=== PATIENT | male | born 1940 | race Caucasian/White ===

== ENCOUNTER → 2016-08-14 | Day surgery (SDC) | payer MEDICARE ==
[2016-08-09 11:25] VITALS: BMI 28.0
[~2016-08-14] MED LIST: LACTATED RINGERS 1,000 ML IV SCH; LIDOCAINE 1% 20 ML VIAL (10MG/ML) FOR IV START INTRADERMA ONE; LIDOCAINE 1% INJ 10MG/ML (20 ML MDV) ONE; PROPOFOL 10 MG/ML 20 ML VIAL IV ONE
--- NOTE | 2016-08-14 13:18 | P.GSHP ---
History of Present Illness H&P Date: 08/14/16 Chief Complaint: GI bleed This is a 68-year-old male for from Dr. Adams Woodward. Patient is today for EGD and colonoscopy. He's had issues with GI bleed. 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, right ankle pressure sore Past Surgical History: Back Surgery, Coronary Bypass/CABG, Joint Replacement, Orthopedic Surgery Additional Past Surgical History / Comment(s): CABG 1988 X2, olga hip replacement , miguel fundoplicaton, olga carpal tunnel, rt shoulder rotator cuff, HX OF EPIDURALS FOR PAIN Past Anesthesia/Blood Transfusion Reactions: No Reported Reaction Past Psychological History: Depression Additional Psychological History / Comment(s): STATES OCCASIONAL Smoking Status: Current every day smoker Past Alcohol Use History: None Reported Additional Past Alcohol Use History / Comment(s): SMOKES <1PPD FROM TEENS Past Drug Use History: None Reported - Past Family History Daughter(s) Family Medical History: Cancer Father History Unknown: Yes Mother Family Medical History: No Reported History Medications and Allergies Home Medications Medication Instructions Recorded Confirmed Type Metoprolol Tartrate [Lopressor] 12.5 mg PO BID 08/06/13 08/14/16 History Rivaroxaban [Xarelto] 20 mg PO DAILY 08/06/13 08/14/16 History Furosemide 40 mg PO BID 08/09/13 08/14/16 History Gabapentin 600 mg PO TID 06/24/14 08/14/16 History Fluticasone/Salmeterol [Advair 1 device PO BID 08/18/14 08/14/16 History 250-50 Diskus] Tiotropium 18 Mcg/Puff [Spiriva] 1 device PO DAILY 08/18/14 08/14/16 History Albuterol Nebulized [Ventolin 2.5 mg INHALATION BID 08/09/16 08/14/16 History Nebulized] Ipratropium Nebulized [Atrovent 0.5 mg INHALATION BID 08/09/16 08/14/16 History Nebulized] oxyCODONE HCL/ACETAMINOPHEN 1 tab PO TID PRN 08/09/16 08/14/16 History [Percocet 10-325 mg] Allergies Allergy/AdvReac Type Severity Reaction Status Date / Time No Known Allergies Allergy Verified 08/14/16 11:21 Surgical - Exam Vital Signs Pulse BP Pulse Ox 80 94/58 98 08/14/16 11:26 08/14/16 11:26 08/14/16 11:26 - General well developed, no distress - Eyes PERRL - ENT normal pinna - Neck no masses - Respiratory normal expansion - Cardiovascular Rhythm: regular - Abdomen Abdomen: soft, non tender Assessment and Plan Plan: GI bleed. We'll perform EGD and colonoscopy.
--- NOTE | 2016-08-14 13:46 | P.OP ---
Date of Procedure: 08/14/16 Preoperative Diagnosis: GI bleed Postoperative Diagnosis: Antral gastritis Cecal polyp Right colon polyp Moderate to severe diverticulosis of sigmoid colon Procedure(s) Performed: EGD Colonoscopy Implants: Anesthesia: MAC Surgeon: Abel Ocampo Pathology: other (Antrum, right colon polyp, cecal polyp) Condition: stable Disposition: PACU Indications for Procedure: Operative Findings: Description of Procedure: The patient's placed on the endoscopy table in the lateral position. She received IV sedation. Digital rectal exam was performed which revealed no abnormalities. The prostate was symmetric without nodules. The flexible colonoscope was then placed patient anus passed throughout the entire colon. The ileocecal valve was visualized. The cecum was examined and there was a polyp seen this removed with snare. Next another polyp was seen in the right colon was removed the forcep. Scope was withdrawn and the remainder the ascending colon and transverse colon appeared normal. In the descending colon there was moderate diverticular changes. In the sigmoid: There is severe diverticular changes. Scope was then brought back the rectum and this appeared normal. Scope was withdrawn for patient. Next the gastroscope was placed oropharynx and passed into the esophagus and into the stomach. Scope was then placed through the pylorus. The first and second portion of the duodenum appeared normal. Scope was then brought back the antrum this appeared mildly inflamed. A biopsies performed. The scope was retroflexed and remainder of the stomach appeared normal. The patient appears hiatal hernia The fundoplication wrap appeared to be in appropriate position. The GE junction was at 40 cm. The distal esophagus appeared normal. The proximal esophagus appeared normal. The scope was withdrawn for patient.
[2016-08-14 13:51] VITALS: RESP 16
[2016-08-14 14:16] VITALS: BP 118/73; PULSE 77
== END ==
LOC: ORWHC2ENDO 10:20
PROVIDERS: ATTEND Surgery
DX: K29.50 Unspecified chronic gastritis without bleeding (principal); D12.0 Benign neoplasm of cecum; K63.5 Polyp of colon; K57.30 Diverticulosis of large intestine without perforation or abscess without bleeding; Z87.19 Personal history of other diseases of the digestive system; I48.91 Unspecified atrial fibrillation; J44.9 Chronic obstructive pulmonary disease, unspecified; K21.9 Gastro-esophageal reflux disease without esophagitis; E78.5 Hyperlipidemia, unspecified; I25.2 Old myocardial infarction; Z86.14 Personal history of Methicillin resistant Staphylococcus aureus infection; Z95.1 Presence of aortocoronary bypass graft; F32.9 Major depressive disorder, single episode, unspecified; F17.200 Nicotine dependence, unspecified, uncomplicated; Z79.01 Long term (current) use of anticoagulants; Z79.891 Long term (current) use of opiate analgesic; Z79.51 Long term (current) use of inhaled steroids; Z79.899 Other long term (current) drug therapy
CPT/HCPCS: 88305; 88342; 45380; 45385; 43239; J2001; J2704

== ENCOUNTER → 2017-01-14 | Outpatient (CLI) | payer MEDICARE ==
[2017-01-14 16:06] LABS: Basophils % (A) 0 %; CH 31.3; CHCM 32.1; Eosinophils # (A) 0.1 k/uL (0-0.7); Eosinophils % (A) 2 %; HCT 44.2 % (39.0-53.0); HDW 2.62; HGB 13.9 gm/dL (13.0-17.5); Luc # (Auto) 0.22; Luc % (Auto) 3; Lymphocytes # (A) 2.3 k/uL (1.0-4.8); Lymphocytes % (A) 32 %; MCH 31.1 pg (25.0-35.0); MCHC 31.6 g/dL (31.0-37.0); MCV 98.4 fL (80.0-100.0); Mean Platelet Volume 6.8; Monocytes # (A) 0.7 k/uL (0-1.0); Monocytes % (A) 9 %; Neutrophils # (A) 3.8 k/uL (1.3-7.7); Neutrophils % (A) 53 %; RBC 4.49 m/uL (4.30-5.90); RDW 14.4 % (11.5-15.5); WBC 7.2 k/uL (3.8-10.6); WBC (Perox) 7.17
[2017-01-14 16:10] LABS: Anion Gap 9 mmol/L; Blood Urea Nitrogen 15 mg/dL (9-20); Calcium 9.2 mg/dL (8.4-10.2); Carbon Dioxide 28 mmol/L (22-30); Chloride 106 mmol/L (98-107); Glucose 94 mg/dL (74-99); Non-African American GFR(MDRD) >60 (>60 ml/min/1.73 sqM); Sodium 143 mmol/L (137-145)
--- NOTE | 2017-01-22 12:32 | P.ARTDOP ---
Arterial Doppler LOWER EXTREMITY ARTERIAL DOPPLER: DATE OF SERVICE: 01/14/2017 Reason for study: Left calf ulcer with fatty layer exposed. Doppler waveforms: Multiphasic bilaterally throughout.. Pulse volume recording: Blunted right digital configuration Pressure gradients: only at the right foot Ankle-brachial indices: greater than 1 bilaterally Toe pressures: no accurate recording obtained on the right, 59 on the left Impression: proximally both studies are normal. There is decreased pressure and waveforms on the right toes which do not correlate with symptoms. Perfusion probably adequate for healing on the left calf. Findings on the right foot are either severe vasospastic or less likely occlusive disease. Clinical correlation recommended.
== END | disposition home or self-care (01) ==
LOC: RADUSWWP 14:23
PROVIDERS: ATTEND Family Medicine
DX: L97.221 Non-pressure chronic ulcer of left calf limited to breakdown of skin (principal)
CPT/HCPCS: 36415; 80048; 85025; 93922

== ENCOUNTER 2017-09-16 09:57 | Day surgery (SDC) | payer MEDICARE ==
[2017-09-15 08:53] VITALS: BMI 29.2
[~2017-09-16 09:57] MED LIST changes: -LIDOCAINE 1% 20 ML VIAL (10MG/ML) FOR IV START INTRADERMA ONE; -LIDOCAINE 1% INJ 10MG/ML (20 ML MDV) ONE; -PROPOFOL 10 MG/ML 20 ML VIAL IV ONE
[2017-09-16 10:35] VITALS: RESP 16; TEMP 98.2
[2017-09-16] MEDS ORDERED: LIDOCAINE 1% 20 ML VIAL (10MG/ML) FOR IV START INTRADERMA ONE (10:35)
[2017-09-16] MEDS ORDERED: PROPOFOL 10 MG/ML 20 ML VIAL IV ONE (11:26)
--- NOTE | 2017-09-16 11:39 | P.GSHP ---
History of Present Illness H&P Date: 09/16/17 Chief Complaint: GI bleed This a 77-year-old male presents today for colonoscopy. He's had issues with rectal bleeding. Past Medical History Past Medical History: Atrial Fibrillation, COPD, GERD/Reflux, Hypertension, Myocardial Infarction ([place]), Thyroid Disorder Additional Past Medical History / Comment(s): GI BLEED, HX OF COLON POLYPS. 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, right ankle pressure sore Past Surgical History: Back Surgery, Coronary Bypass/CABG, Joint Replacement, Orthopedic Surgery Additional Past Surgical History / Comment(s): CABG 1987 X2, olga hip replacement , miguel fundoplicaton, olga carpal tunnel, rt shoulder rotator cuff, HX OF EPIDURALS FOR PAIN Past Anesthesia/Blood Transfusion Reactions: No Reported Reaction Smoking Status: Current every day smoker - Past Family History Daughter(s) Family Medical History: Cancer Father History Unknown: Yes Mother Family Medical History: No Reported History Medications and Allergies Home Medications Medication Instructions Recorded Confirmed Type Metoprolol Tartrate [Lopressor] 12.5 mg PO BID 08/06/13 09/16/17 History Rivaroxaban [Xarelto] 20 mg PO DAILY 08/06/13 09/16/17 History Furosemide 40 mg PO BID 08/09/13 09/16/17 History Gabapentin 600 mg PO TID 06/24/14 09/16/17 History Fluticasone/Salmeterol [Advair 1 device PO BID 08/18/14 09/16/17 History 250-50 Diskus] Tiotropium 18 Mcg/Puff [Spiriva] 1 device PO DAILY 08/18/14 09/16/17 History Albuterol Nebulized [Ventolin 2.5 mg INHALATION TID 08/09/16 09/16/17 History Nebulized] Ipratropium Nebulized [Atrovent 0.5 mg INHALATION TID 08/09/16 09/16/17 History Nebulized] oxyCODONE HCL/ACETAMINOPHEN 1 tab PO TID PRN 08/09/16 09/16/17 History [Percocet 10-325 mg] Allergies Allergy/AdvReac Type Severity Reaction Status Date / Time No Known Allergies Allergy Verified 09/16/17 10:25 Surgical - Exam Vital Signs Temp Pulse Resp BP Pulse Ox 98.2 F 91 16 97/56 90 L 09/16/17 10:34 09/16/17 10:34 09/16/17 10:34 09/16/17 10:34 09/16/17 10:34 - General well developed, no distress - Eyes PERRL - ENT normal pinna - Neck no masses - Respiratory normal expansion - Cardiovascular Rhythm: regular - Abdomen Abdomen: soft, non tender Assessment and Plan Assessment: GI bleed. We'll perform colonoscopy.
--- NOTE | 2017-09-16 11:56 | P.OP ---
Date of Procedure: 09/16/17 Preoperative Diagnosis: GI bleed Postoperative Diagnosis: Diverticulosis Right colon polyp Procedure(s) Performed: Colonoscopy Anesthesia: MAC Surgeon: Abel Ocampo Pathology: other (Right colon polyp) Condition: stable Disposition: PACU Description of Procedure: The patient's placed on the endoscopy table lateral position. He received IV sedation. Digital rectal exam was performed which revealed a few external hemorrhoids. The flexible colonoscope was then placed patient anus and passed throughout the entire colon. The ileocecal valve was visually's. The cecum appeared normal. In the right colon there was a polyp seen this removed with the snare. Scope was withdrawn remainder the ascending colon and transverse colon appeared normal. In the descending; there is mild diverticular changes. There is known to GI bleed. The scope was brought back the rectum and this appeared normal. Scope was withdrawn for patient.
[2017-09-16 12:29] VITALS: BP 126/72; PULSE 88
== END 2017-09-16 12:47 | disposition home or self-care (01) ==
LOC: ORWHC2ENDO 09:57
PROVIDERS: ATTEND Surgery
DX: D12.2 Benign neoplasm of ascending colon (principal); K57.30 Diverticulosis of large intestine without perforation or abscess without bleeding; K62.5 Hemorrhage of anus and rectum; K21.9 Gastro-esophageal reflux disease without esophagitis; I48.91 Unspecified atrial fibrillation; I25.2 Old myocardial infarction; J44.9 Chronic obstructive pulmonary disease, unspecified; I25.10 Atherosclerotic heart disease of native coronary artery without angina pectoris; I10 Essential (primary) hypertension; Z95.1 Presence of aortocoronary bypass graft; Z96.643 Presence of artificial hip joint, bilateral; Z86.010 Personal history of colon polyps; Z86.14 Personal history of Methicillin resistant Staphylococcus aureus infection; Z87.01 Personal history of pneumonia (recurrent); Z79.51 Long term (current) use of inhaled steroids; Z79.01 Long term (current) use of anticoagulants; Z79.899 Other long term (current) drug therapy; Z99.81 Dependence on supplemental oxygen
CPT/HCPCS: 88305; 45385; J2704

== ENCOUNTER → 2017-10-03 | Outpatient (CLI) | payer MEDICARE ==
[2017-10-03 12:19] LABS: HCT 40.9 % (39.0-53.0); HGB 13.3 gm/dL (13.0-17.5); MCH 31.1 pg (25.0-35.0); MCHC 32.4 g/dL (31.0-37.0); MCV 95.8 fL (80.0-100.0); Mean Platelet Volume 7.2; Platelet Count 184 k/uL (150-450); RBC 4.27 m/uL (4.30-5.90); RDW 14.3 % (11.5-15.5); WBC 7.7 k/uL (3.8-10.6)
[2017-10-03 12:29] LABS: ALT 33 U/L (21-72); AST 37 U/L (17-59); Albumin 3.7 g/dL (3.5-5.0); Alkaline Phosphatase 72 U/L (38-126); Anion Gap 6 mmol/L; Blood Urea Nitrogen 17 mg/dL (9-20); Calcium 9.2 mg/dL (8.4-10.2); Carbon Dioxide 34 mmol/L (22-30); Chloride 105 mmol/L (98-107); Glucose 106 mg/dL (74-99); Potassium 4.8 mmol/L (3.5-5.1); Sodium 145 mmol/L (137-145); Total Bilirubin 0.5 mg/dL (0.2-1.3); Total Protein 6.3 g/dL (6.3-8.2)
== END | disposition home or self-care (01) ==
LOC: LABWHC1 11:45
PROVIDERS: ATTEND Internal Medicine Cardiovascular Disease
DX: I25.10 Atherosclerotic heart disease of native coronary artery without angina pectoris (principal)
CPT/HCPCS: 36415; 80053; 85027

== ENCOUNTER 2018-01-26 12:08 | Day surgery (SDC) | payer MEDICARE ==
[2018-01-20 14:47] VITALS: BMI 28.2
[~2018-01-26 12:08] MED LIST changes: +DEXAMETHASONE SOD PHOSPHATE 10 MG/ML 1 ML VIAL IV ONE; +HYDROmorphone 1 MG/ML 1 ML SYRINGE IVP PRN; +LIDOCAINE 1% 20 ML VIAL (10MG/ML) FOR IV START INTRADERMA PRN; +ceFAZolin IN SWFI 2 GM/20 ML SYRINGE IVP ONE
[2018-01-26 12:34] VITALS: TEMP 97.6
[2018-01-26] MEDS ORDERED: LACTATED RINGERS 1,000 ML IV ONE (12:35)
[2018-01-26] MEDS ORDERED: ONDANSETRON 4 MG/2 ML VIAL IVP ONE (12:41)
[2018-01-26] MEDS ORDERED: BUPIVACAINE (PF) 0.5% 30 ML VIAL SQ ONE ×2 (13:59→14:33)
[2018-01-26] MEDS ORDERED: LIDOCAINE 2% INJ 20 MG/ML SQ ONE ×2 (13:59→14:33)
[2018-01-26] MEDS ORDERED: PROPOFOL 10 MG/ML 20 ML VIAL IV ONE (14:23)
[2018-01-26] MEDS ORDERED: LIDOCAINE 1% INJ 10MG/ML (20 ML MDV) ONE (14:23)
[2018-01-26 14:48] VITALS: BP 100/55; PULSE 85; RESP 16
--- NOTE | 2018-01-28 07:28 | OP ---
OPERATIVE REPORT PREOPERATIVE DIAGNOSIS: Recurrent right carpal tunnel syndrome. FINAL DIAGNOSIS: Recurrent right carpal tunnel syndrome. PROCEDURE: Redo right carpal tunnel release. GROSS PATHOLOGY: The original carpal tunnel release was done many years ago. Intraoperatively, the transverse carpal ligament had formed and was quite tight. There was significant separation when it was released. The median nerve was partially viewed and no significant abnormality was noted on direct inspection. PROCEDURE DESCRIPTION: A 77-year-old man was taken to operative suite, given IV sedation and a line of incision was anesthetized with a combinations of Xylocaine and Marcaine both without epinephrine. His hand was prepped and draped in usual manner. The arm was elevated, exsanguinated and the cuff was inflated to 250 mm of mercury. A longitudinal incision was made along the ring finger ray distal to the wrist crease. Dissection was taken through the skin and subcutaneous tissue, initially sharp through the skin and then blunt through the subcutaneous tissue to ensure protection of any potential terminal transverse branches of the palmar cutaneous nerve. The palmar fascia was then incised under direct vision longitudinally exposing the transverse carpal ligament. The transverse carpal ligament also was incised under direct vision. The dissection was then continued proximally beneath the skin under direct vision to release the distal forearm fascia. The median nerve was then reflected free of tenosynovium to ensure no adhesions. The tourniquet was then released. The wound was then irrigated and the skin was closed with a running 5-0 nylon suture. A soft bulky dressing was applied including a volar plaster splint holding the wrist in a neutral slightly extended position. The patient was then taken to the Recovery Room in satisfactory condition. MMODL / IJN: [id number] /
== END 2018-01-26 15:54 | disposition home or self-care (01) ==
LOC: OR 12:08
PROVIDERS: ATTEND Orthopaedic Surgery Hand Surgery
DX: G56.01 Carpal tunnel syndrome, right upper limb (principal); F17.210 Nicotine dependence, cigarettes, uncomplicated; Z79.899 Other long term (current) drug therapy; E03.9 Hypothyroidism, unspecified; F03.90 Unspecified dementia, unspecified severity, without behavioral disturbance, psychotic disturbance, mood disturbance, and anxiety; K21.9 Gastro-esophageal reflux disease without esophagitis; I48.91 Unspecified atrial fibrillation; I11.9 Hypertensive heart disease without heart failure; E78.5 Hyperlipidemia, unspecified; J44.9 Chronic obstructive pulmonary disease, unspecified; Z95.1 Presence of aortocoronary bypass graft; I25.2 Old myocardial infarction; Z79.01 Long term (current) use of anticoagulants; Z79.891 Long term (current) use of opiate analgesic; Z79.51 Long term (current) use of inhaled steroids
CPT/HCPCS: 64721; J2001 ×2; J1100; J2405; J2704; J0690

== ENCOUNTER → 2019-01-30 | Outpatient (CLI) | payer MEDICARE ==
[2019-01-30 09:18] LABS: Basophils % (A) 1 %; Eosinophils # (A) 0.2 k/uL (0-0.7); Eosinophils % (A) 3 %; HCT 36.4 % (39.0-53.0); HGB 11.4 gm/dL (13.0-17.5); Lymphocytes # (A) 1.6 k/uL (1.0-4.8); Lymphocytes % (A) 27 %; MCH 30.2 pg (25.0-35.0); MCHC 31.4 g/dL (31.0-37.0); MCV 96.4 fL (80.0-100.0); Mean Platelet Volume 7.2; Monocytes # (A) 0.5 k/uL (0-1.0); Monocytes % (A) 9 %; Neutrophils # (A) 3.2 k/uL (1.3-7.7); Neutrophils % (A) 57 %; Platelet Count 173 k/uL (150-450); RBC 3.77 m/uL (4.30-5.90); RDW 14.1 % (11.5-15.5); WBC 5.7 k/uL (3.8-10.6)
[2019-01-30 17:29] LABS: ALT 27 U/L (10-49); AST 39 U/L (14-35); African American GFR (CKD) 103.3 (60.0-200.0); Albumin/Globulin Ratio 1.48 (1.60-3.17); Alkaline Phosphatase 109 U/L (41-126); Calcium 8.7 mg/dL (8.7-10.3); Carbon Dioxide 32.2 mmol/L (21.6-31.8); Chloride 107 mmol/L (96-109); Chol/HDL Ratio 2.24; Cholesterol 85 mg/dL (0-200); Globulin 2.3 g/dL (1.6-3.3); Glucose 108 mg/dL (70-110); Potassium 4.3 mmol/L (3.5-5.5); Sodium 147 mmol/L (135-145); Total Bilirubin 0.5 mg/dL (0.2-1.2); Total Protein 5.7 g/dL (6.2-8.2); Triglycerides <50.0 mg/dL (0.0-149.0)
[2019-01-30 19:51] LABS: Hemoglobin A1C 6.1 % (4.0-6.0)
== END | disposition home or self-care (01) ==
LOC: LABWHC1 08:46
PROVIDERS: ATTEND Nurse Practitioner Acute Care
DX: Z00.00 Encounter for general adult medical examination without abnormal findings (principal); E78.5 Hyperlipidemia, unspecified; E11.9 Type 2 diabetes mellitus without complications
CPT/HCPCS: 36415; 80053; 80061; 82043; 82306; 82570; 83036; 84153; 84156; 84439; 84443; 85025; 86803

== ENCOUNTER → 2019-04-01 | Day surgery (SDC) | payer MEDICARE ==
[~2019-04-01] MED LIST changes: -DEXAMETHASONE SOD PHOSPHATE 10 MG/ML 1 ML VIAL IV ONE; +GLUCAGON 1 MG/ML VIAL ONE; -HYDROmorphone 1 MG/ML 1 ML SYRINGE IVP PRN; +LIDOCAINE 1% INJ 10MG/ML (20 ML MDV) ONE; +PROPOFOL 10 MG/ML 20 ML VIAL IV ONE; -ceFAZolin IN SWFI 2 GM/20 ML SYRINGE IVP ONE
[2019-04-01 08:04] VITALS: TEMP 97.5
--- NOTE | 2019-04-01 08:43 | P.GSHP ---
History of Present Illness H&P Date: 04/01/19 Chief Complaint: GI bleed This 79-year-old male presents today for EGD and colonoscopy. Has had issues with GI bleed. Past Medical History Past Medical History: Atrial Fibrillation, COPD, GERD/Reflux, Hypertension, Myocardial Infarction ([place]), Musculoskeletal Disorder, Osteoarthritis (OA), Pneumonia, Thyroid Disorder Additional Past Medical History / Comment(s): HX OF COLON POLYPS. HX RIGHT BREAST MASS. O2 AT 2L [place] @HS, AND PRN. Hx Aspiration Pneumonia R/T "FLAPPER." HX OF THYROID PROBLEM - NO TX NOW. CHRONIC BACK PAIN, RUPESH LEG NT, PAIN INJ LAST WEEK HELPED. RT FOOT/ANKLE EDEMA, WEARS TEDS. RUPESH CTS Last Myocardial Infarction Date:: 1987 History of Any Multi-Drug Resistant Organisms: MRSA Date of last positivie culture/infection: 1988-chest, 03/2012-01/2013 ankle sore MDRO Source:: staph after open heart; Right Ankle pressure sore Past Surgical History: Back Surgery, Coronary Bypass/CABG, Joint Replacement, Orthopedic Surgery Additional Past Surgical History / Comment(s): CARPAL TUNNEL RIGHT. CABG 1987 X2. RUPESH SCOPES KNEES. Rupesh Hip Replacement, Nicholas Fundoplicaton, Rupesh [facility] 2002. Rt Shoulder Rotator Cuff. BACK X2. HX OF EPIDURALS FOR PAIN. Past Anesthesia/Blood Transfusion Reactions: No Reported Reaction Past Psychological History: Depression Additional Psychological History / Comment(s): REFUSES RX Smoking Status: Light tobacco smoker Past Alcohol Use History: None Reported Additional Past Alcohol Use History / Comment(s): SMOKES 2-3 cig Daily AVG, SINCE TEENS, WAS 1 PPD IN PAST Past Drug Use History: None Reported - Past Family History Daughter(s) Family Medical History: Cancer Father History Unknown: Yes Mother Family Medical History: No Reported History Medications and Allergies Home Medications Medication Instructions Recorded Confirmed Type Metoprolol Tartrate [Lopressor] 25 mg PO BID 08/06/13 04/01/19 History Rivaroxaban [Xarelto] 20 mg PO PC-SUPPER 08/06/13 04/01/19 History Furosemide 40 mg PO BID 08/09/13 04/01/19 History Gabapentin 600 mg PO BID 06/24/14 04/01/19 History Fluticasone/Salmeterol [Advair 1 device PO BID 08/18/14 04/01/19 History 250-50 Diskus] Tiotropium 18 Mcg/Puff [Spiriva] 1 puff INHALATION QAM 08/18/14 04/01/19 History Albuterol Nebulized [Ventolin 2.5 mg INHALATION TID 08/09/16 04/01/19 History Nebulized] oxyCODONE HCL/ACETAMINOPHEN 1 tab PO TID PRN 08/09/16 04/01/19 History [Percocet 10-325 mg] Atorvastatin [Lipitor] 40 mg PO HS 01/20/18 04/01/19 History Multivitamin [Men's Multi-Vitamin] 1 each PO DAILY 01/20/18 04/01/19 History Allergies Allergy/AdvReac Type Severity Reaction Status Date / Time No Known Allergies Allergy Verified 03/29/19 13:56 Surgical - Exam Vital Signs Temp Pulse Resp BP Pulse Ox 97.5 F L 62 16 102/68 90 L 04/01/19 07:55 04/01/19 07:55 04/01/19 07:55 04/01/19 07:55 04/01/19 07:55 - General well developed, well nourished, no distress - Eyes PERRL, normal ocular movement - ENT normal pinna - Neck no masses - Respiratory normal expansion - Cardiovascular Rhythm: regular - Abdomen Abdomen: soft, non tender Assessment and Plan Assessment: GI bleed. We'll perform colonoscopy
--- NOTE | 2019-04-01 09:02 | P.OP ---
Date of Procedure: 04/01/19 Preoperative Diagnosis: GI bleed Postoperative Diagnosis: Antral gastritis Procedure(s) Performed: EGD Colonoscopy Anesthesia: MAC Surgeon: Abel Ocampo Pathology: other (Antrum) Condition: stable Disposition: PACU Description of Procedure: The patient's placed on the endoscopy table in the lateral position. He received IV sedation. The gastroscope placed oropharynx and passed in the esophagus into the stomach. Scope was then placed through the pylorus. The first and second portion of the duodenum appeared normal. Scope was then brought back the antrum and this appeared inflamed. A biopsies performed. Scope was unretroflexed and remainder of the stomach appeared normal. The patient appears fundal plication wrap. This appeared to be in the appropriate position. The GE junction was at 40 cm. The distal esophagus appeared normal. The proximal esophagus appeared normal. Scope was withdrawn for patient. Next digital rectal exam was performed. Digital rectal exam was performed which revealed a few external hemorrhoids. The flexible colonoscope was then placed patient anus and passed throughout the colon. Scope couldn't pass beyond the transverse colon secondary to tortuosity the bowel. Patient had difficulty retaining air within the colon. The scope was then brought back. In the descending colon there is some diverticular changes. There is known to any bleeding. The scope was then brought back the rectum and this appeared normal. Scope withdrawn for patient. Patient was scheduled for a barium enema. There was no evidence of bleeding. It is presumed that he may have had some bleeding from his hemorrhoids.
[2019-04-01 09:26] VITALS: RESP 18
[2019-04-01 09:39] VITALS: BP 96/56; PULSE 80
--- NOTE | 2019-04-01 11:42 | FL ---
EXAMINATION TYPE: FL barium enema DATE OF EXAM: 04/01/2019 COMPARISON: NONE HISTORY: Incomplete colonoscopy TECHNIQUE: A single contrast barium enema study is attempted. Total of 4 seconds fluoroscopic time u tilized during attempted procedure. 4 spot images saved to PACS. FINDINGS: Clerk Of Scales view of the abdomen shows overall gaseous prominent colonic loops throughout the abd omen and pelvis. There is partial visualization metallic hardware from bilateral hip arthroplasty. Th ere is overlying vascular calcification. There is fairly severe multilevel spurring and disc space na rrowing throughout the thoracolumbar spine. Catheter was inserted. Rectal Balloon was inflated. Attempt was made to perform enema study. Patient was unable to tolerate holding contrast and had limited mobility due to back and hip issues. At this point procedure was terminated prior to diagnostic results. IMPRESSION: Unsuccessful nondiagnostic enema study, consider CT colonoscopy to further evaluate.
== END | disposition home or self-care (01) ==
LOC: ORWHC2ENDO 07:38
PROVIDERS: ATTEND Surgery
DX: K29.50 Unspecified chronic gastritis without bleeding (principal); K64.4 Residual hemorrhoidal skin tags; Q43.8 Other specified congenital malformations of intestine; K57.31 Diverticulosis of large intestine without perforation or abscess with bleeding; I70.90 Unspecified atherosclerosis; M46.05 Spinal enthesopathy, thoracolumbar region; M51.85 Other intervertebral disc disorders, thoracolumbar region; Z86.010 Personal history of colon polyps; I48.91 Unspecified atrial fibrillation; J44.9 Chronic obstructive pulmonary disease, unspecified; K21.9 Gastro-esophageal reflux disease without esophagitis; I10 Essential (primary) hypertension; I25.2 Old myocardial infarction; M19.90 Unspecified osteoarthritis, unspecified site; G89.29 Other chronic pain; M54.9 Dorsalgia, unspecified; M79.605 Pain in left leg; M79.604 Pain in right leg; F32.9 Major depressive disorder, single episode, unspecified; F17.210 Nicotine dependence, cigarettes, uncomplicated; Z99.3 Dependence on wheelchair; Z86.69 Personal history of other diseases of the nervous system and sense organs; Z87.01 Personal history of pneumonia (recurrent); Z86.39 Personal history of other endocrine, nutritional and metabolic disease; Z86.14 Personal history of Methicillin resistant Staphylococcus aureus infection; Z98.890 Other specified postprocedural states; Z95.1 Presence of aortocoronary bypass graft; Z96.643 Presence of artificial hip joint, bilateral; Z79.899 Other long term (current) drug therapy; Z79.01 Long term (current) use of anticoagulants; Z79.51 Long term (current) use of inhaled steroids; Z79.891 Long term (current) use of opiate analgesic; Z97.2 Presence of dental prosthetic device (complete) (partial); Z80.9 Family history of malignant neoplasm, unspecified
CPT/HCPCS: 88305; 74270; 45378; 43239; J1610; J2001; J2704

== ENCOUNTER → 2019-04-14 | Outpatient (CLI) | payer MEDICARE ==
--- NOTE | 2019-04-14 12:34 | XR ---
Sacrum and coccyx HISTORY: Pain 3 views of the sacrum and coccyx, correlation prior exam 06/13/2013 Patient shows bilateral hip arthroplasties. Marked degenerative disc changes are noted in the lower l umbar spine, lumbosacral junction. There are dense vascular calcifications. Bone mineralization is re duced. There are overlying artifacts. Alignment is maintained. Vacuum disc phenomenon present at inte rvertebral disc levels. IMPRESSION: Degenerative disc disease, osteopenia, postop changes and additional findings above.
== END | disposition home or self-care (01) ==
LOC: RADXRMAIN 09:24
PROVIDERS: ATTEND Family Medicine
DX: M53.3 Sacrococcygeal disorders, not elsewhere classified (principal); Z96.643 Presence of artificial hip joint, bilateral
CPT/HCPCS: 72220

== ENCOUNTER 2019-05-31 10:31 | Day surgery (SDC) | payer MEDICARE ==
[2019-05-28 13:35] VITALS: BMI 24.5
[~2019-05-31 10:31] MED LIST changes: +DEXAMETHASONE SOD PHOSPHATE 10 MG/ML 1 ML VIAL IV ONE; -GLUCAGON 1 MG/ML VIAL ONE; +HEPARIN SODIUM,PORCINE 5,000 UNIT/ML 1 ML VIAL SQ ONE; +HYDROmorphone 0.5 MG/0.5 ML SYRINGE IVP PRN; -LIDOCAINE 1% 20 ML VIAL (10MG/ML) FOR IV START INTRADERMA PRN; -LIDOCAINE 1% INJ 10MG/ML (20 ML MDV) ONE; +MIDAZOLAM 2 MG/2 ML VIAL IV PRN; +ONDANSETRON 4 MG/2 ML VIAL IVP ONE; -PROPOFOL 10 MG/ML 20 ML VIAL IV ONE; +Pre Op ABX Message 1 EACH MISC MISCELLANE ONE
[2019-05-31 10:48] VITALS: TEMP 97.3
--- NOTE | 2019-05-31 12:48 | P.GSHP ---
History of Present Illness H&P Date: 05/31/19 Chief Complaint: Left breast mass This is a 79-year-old male has developed a tender mass was left breast. Patient presents today for left breast mass excision. The mass measures approximately 4 cm diameter. Past Medical History Past Medical History: Atrial Fibrillation, COPD, GERD/Reflux, Hypertension, Myocardial Infarction ([place]), Musculoskeletal Disorder, Osteoarthritis (OA), Pneumonia, Thyroid Disorder Additional Past Medical History / Comment(s): left breast mass HX OF COLON POLYPS. HX RIGHT BREAST MASS. O2 AT 2L [place] @HS AND PRN. Hx Aspiration Pneumonia R/T "FLAPPER." HX OF THYROID PROBLEM - NO TX NOW. CHRONIC BACK PAIN, RUPESH LEG NT. RT FOOT/ANKLE EDEMA, WEARS TEDS. 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 CABG 1987 X2. RUPESH SCOPES KNEES. Rupesh Hip Replacement, Nicholas Fundoplicaton. Rt Shoulder Rotator Cuff. BACK X2. HX OF EPIDURALS FOR PAIN. Past Anesthesia/Blood Transfusion Reactions: No Reported Reaction Smoking Status: Light tobacco smoker - Past Family History Daughter(s) Family Medical History: Cancer Father History Unknown: Yes Mother Family Medical History: No Reported History Medications and Allergies Home Medications Medication Instructions Recorded Confirmed Type Metoprolol Tartrate [Lopressor] 25 mg PO BID 08/06/13 05/31/19 History Rivaroxaban [Xarelto] 20 mg PO PC-SUPPER 08/06/13 05/31/19 History Furosemide 40 mg PO BID 08/09/13 05/31/19 History Gabapentin 600 mg PO BID 06/24/14 05/31/19 History Fluticasone/Salmeterol [Advair 1 device PO BID 08/18/14 05/31/19 History 250-50 Diskus] Tiotropium 18 Mcg/Puff [Spiriva] 1 puff INHALATION QAM 08/18/14 05/31/19 History Albuterol Nebulized [Ventolin 2.5 mg INHALATION TID 08/09/16 05/31/19 History Nebulized] oxyCODONE HCL/ACETAMINOPHEN 1 tab PO TID PRN 08/09/16 05/31/19 History [Percocet 10-325 mg] Atorvastatin [Lipitor] 40 mg PO HS 01/20/18 05/31/19 History Multivitamin [Men's Multi-Vitamin] 1 each PO DAILY 01/20/18 05/31/19 History Allergies Allergy/AdvReac Type Severity Reaction Status Date / Time No Known Allergies Allergy Verified 05/28/19 13:24 Surgical - Exam Vital Signs Temp Pulse Resp BP Pulse Ox 97.3 F L 98 16 94/61 100 05/31/19 10:47 05/31/19 10:47 05/31/19 10:47 05/31/19 10:47 05/31/19 10:47 - General well nourished, no distress - Eyes PERRL - ENT normal pinna - Neck no masses - Respiratory normal expansion - Cardiovascular Rhythm: regular - Abdomen Abdomen: soft, non tender - Integumentary 4 cm left breast mass located beneath the nipple. The mass is firm and tender Results - Labs 05/31/19 10:57 Diabetes panel 05/31/19 Range/Units 10:57 Potassium 3.8 (3.5-5.1) mmol/L Pituitary panel 05/31/19 Range/Units 10:57 Potassium 3.8 (3.5-5.1) mmol/L Adrenal panel 05/31/19 Range/Units 10:57 Potassium 3.8 (3.5-5.1) mmol/L Assessment and Plan Assessment: Left breast mass. We'll perform excision.
[2019-05-31] MEDS ORDERED: MIDAZOLAM 2 MG/2 ML VIAL ONE (13:04)
[2019-05-31] MEDS ORDERED: PROPOFOL 10 MG/ML 20 ML VIAL IV ONE (13:04)
[2019-05-31] MEDS ORDERED: fentaNYL (PF) 50 MCG/ML 2 ML AMP ONE (13:04)
[2019-05-31] MEDS ORDERED: BUPIVACAINE (PF) 0.25% 30 ML VIAL SQ ONE ×3 (13:25→13:33)
[2019-05-31] MEDS ORDERED: SODIUM CHLORIDE 0.9% 50 ML with ceFAZolin 2,000 MG IV ONE ×2 (13:36)
[2019-05-31 14:31] VITALS: BP 106/71; PULSE 81; RESP 18
--- NOTE | 2019-06-01 12:06 | P.OP ---
Date of Procedure: 05/31/19 Preoperative Diagnosis: Left breast mass Postoperative Diagnosis: Left breast mass Procedure(s) Performed: Excision of left breast mass Anesthesia: MAC Surgeon: Abel Ocampo Estimated Blood Loss (ml): 5 Pathology: other (Left breast mass) Condition: stable Disposition: PACU Description of Procedure: The patient's placed on the operative table in the supine position. He received IV sedation. His left chest wall was prepped and draped in usual sterile fashion. An infra areolar incision was made and then using left cautery the subcutaneous tissue divided. Then using the Harmonic scissors the left breast mass was dissected. The mass measured prostate 4 cm in diameter. The Bovie hemostasis. The skin was then closed interrupted 3-0 Monocryl suture. Dermabond was applied. Patient top procedure well and sent to recovery room stable condition.
== END 2019-05-31 14:46 | disposition home or self-care (01) ==
LOC: OR 10:31
PROVIDERS: ATTEND Surgery
DX: I48.91 Unspecified atrial fibrillation (principal); J44.9 Chronic obstructive pulmonary disease, unspecified; I10 Essential (primary) hypertension; I25.2 Old myocardial infarction; M19.90 Unspecified osteoarthritis, unspecified site; Z87.01 Personal history of pneumonia (recurrent); E07.9 Disorder of thyroid, unspecified; Z99.81 Dependence on supplemental oxygen; G89.29 Other chronic pain; M54.9 Dorsalgia, unspecified; Z86.14 Personal history of Methicillin resistant Staphylococcus aureus infection; Z95.1 Presence of aortocoronary bypass graft; Z96.643 Presence of artificial hip joint, bilateral; F17.210 Nicotine dependence, cigarettes, uncomplicated; Z98.890 Other specified postprocedural states; Z80.9 Family history of malignant neoplasm, unspecified; Z79.01 Long term (current) use of anticoagulants; Z79.51 Long term (current) use of inhaled steroids; Z79.899 Other long term (current) drug therapy
CPT/HCPCS: 19120; 88305; 84132; J2250; J1644; J1100; J2405; J0690; J3010; J2704; 93005

== ENCOUNTER 2019-11-22 17:07 | Inpatient (IN) | payer MEDICARE ==
[2019-11-22] MEDS ORDERED: IPRATROPIUM 0.5 MG/2.5 ML NEBU INHALATION STA (17:47)
[2019-11-22] MEDS ORDERED: ALBUTEROL NEBULIZED 2.5 MG/3 ML INHALATION STA (17:47)
[2019-11-22] MEDS ORDERED: methylPREDNISolone SOD SUCCI 125 MG/2 ML VIAL IV STA (17:47)
[2019-11-22] MEDS ORDERED: FUROSEMIDE 10 MG/ML 4 ML VIAL IV STA (17:47)
[2019-11-22 18:11] LABS: Anisocytosis Slight; Basophils % (A) 0 %; Eosinophils % (A) 0 %; HCT 30.4 % (39.0-53.0); HGB 8.8 gm/dL (13.0-17.5); Hypochromasia Marked; Lymphocytes # (A) 0.5 k/uL (1.0-4.8); Lymphocytes % (A) 8 %; MCH 24.4 pg (25.0-35.0); MCV 84.2 fL (80.0-100.0); Mean Platelet Volume 8.2; Monocytes # (A) 0.5 k/uL (0-1.0); Monocytes % (A) 8 %; Neutrophils # (A) 5.1 k/uL (1.3-7.7); Neutrophils % (A) 81 %; Platelet Count 171 k/uL (150-450); RBC 3.61 m/uL (4.30-5.90); RDW 17.1 % (11.5-15.5); WBC 6.3 k/uL (3.8-10.6)
--- NOTE | 2019-11-22 18:17 | ED ---
General Adult HPI - General Chief complaint: Chest Pain Stated complaint: SOB Time Seen by Provider: 11/22/19 17:40 Source: patient, RN notes reviewed, old records reviewed Mode of arrival: ambulatory Limitations: no limitations - History of Present Illness Initial comments: This is an 79-year-old male who presents emergency Department with a past medic al history significant for bypass surgery as well as atrial fibrillation. Patient states he also is a current smoker and has COPD. Patient comes in today because for the last week or difficulty breathing is had intermittent chest pain on and off. Patient states the chest pain doesn't radiate anywhere but does eventually subsided. Patient denies any diaphoresis. Patient denies any nausea. Patient denies lightheadedness dizziness or near syncopal episode. Patient states she's shortness of breath has gotten progressively worse over that same period of time. Patient denies any fever chills or cough per patient denies abdominal pain patient denies nausea vomiting or diarrhea. - Related Data Home Medications Medication Instructions Recorded Confirmed Metoprolol Tartrate [Lopressor] 25 mg PO BID 08/06/13 11/22/19 Rivaroxaban [Xarelto] 20 mg PO PC-SUPPER 08/06/13 11/22/19 Furosemide 40 mg PO DAILY 08/09/13 11/22/19 Gabapentin 600 mg PO TID 06/24/14 11/22/19 Fluticasone/Salmeterol [Advair 1 puff INHALATION RT-BID 08/18/14 11/22/19 250-50 Diskus] Tiotropium 18 Mcg/Puff [Spiriva] 1 puff INHALATION QAM 08/18/14 11/22/19 Albuterol Nebulized [Ventolin 2.5 mg INHALATION TID 08/09/16 11/22/19 Nebulized] oxyCODONE HCL/ACETAMINOPHEN 1 tab PO TID PRN 08/09/16 11/22/19 [Percocet 10-325 mg] Atorvastatin [Lipitor] 40 mg PO HS 01/20/18 11/22/19 Multivitamin [Men's Multi-Vitamin] 1 each PO DAILY 01/20/18 11/22/19 Albuterol Sulfate [Ventolin HFA] 2 puff INHALATION RT-QID PRN 11/22/19 11/22/19 Doxycycline Hyclate 100 mg PO BID 11/22/19 11/22/19 Ipratropium-Albuterol Nebulize 3 ml INHALATION RT-QID 11/22/19 11/22/19 [Duoneb 0.5 mg-3 mg/3 ml Soln] predniSONE See Taper PO DAILY 11/22/19 11/22/19 Previous Rx's Medication Instructions Recorded Docusate [Colace] 100 mg PO BID cap 11/25/19 Allergies Allergy/AdvReac Type Severity Reaction Status Date / Time No Known Allergies Allergy Verified 11/22/19 21:21 Review of Systems ROS Statement: Those systems with pertinent positive or pertinent negative responses have been documented in the HPI. ROS Other: All systems not noted in ROS Statement are negative. Past Medical History Past Medical History: Atrial Fibrillation, COPD, GERD/Reflux, Hypertension, Myocardial Infarction ([place]), Musculoskeletal Disorder, Osteoarthritis (OA), Pneumonia, Thyroid Disorder Additional Past Medical History / Comment(s): left breast mass HX OF COLON POLYPS. HX RIGHT BREAST MASS. O2 AT 2L NC @HS AND PRN. Hx Aspiration Pneumonia R/T "FLAPPER." HX OF THYROID PROBLEM - NO TX NOW. CHRONIC BACK PAIN, RUPESH LEG NT. RT FOOT/ANKLE EDEMA, WEARS TEDS. 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 CABG 1987 X2. RUPESH SCOPES KNEES. Rupesh Hip Replacement, Nicholas Fundoplicaton. Rt Shoulder Rotator Cuff. BACK X2. HX OF EPIDURALS FOR PAIN. Past Anesthesia/Blood Transfusion Reactions: No Reported Reaction Past Psychological History: No Psychological Hx Reported Smoking Status: Current every day smoker Past Alcohol Use History: None Reported Past Drug Use History: None Reported - Past Family History Daughter(s) Family Medical History: Cancer Father History Unknown: Yes Mother Family Medical History: No Reported History General Exam - General Exam Comments Initial Comments: GENERAL: Patient is well-developed and well-nourished. Patient is nontoxic and well- hydrated and is in mild distress. ENT: Neck is soft and supple. No significant lymphadenopathy is noted. Oropharynx is clear. Moist mucous membranes. Neck has full range of motion without eliciting any pain. EYES: The sclera were anicteric and conjunctiva were pink and moist. Extraocular movements were intact and pupils were equal round and reactive to light. Eyelids were unremarkable. PULMONARY: Patient has diminished breath sounds and expiratory wheezing. CARDIOVASCULAR: There is a regular rate and rhythm without any murmurs gallops or rubs. ABDOMEN: Soft and nontender with normal bowel sounds. SKIN: Skin is clear with no lesions or rashes and otherwise unremarkable. NEUROLOGIC: Patient is alert and oriented x3. Cranial nerves II through XII are grossly intact. Motor and sensory are also intact. Normal speech, volume and content. Symmetrical smile. MUSCULOSKELETAL: Normal extremities with adequate strength and full range of motion. Patient has edema in the right leg which he states is chronic LYMPHATICS: No significant lymphadenopathy is noted PSYCHIATRIC: Normal psychiatric evaluation. Limitations: no limitations Course Vital Signs 11/22/19 11/22/19 11/22/19 17:13 18:31 18:44 Temperature 98.3 F Pulse Rate 67 85 76 Respiratory 16 Rate Blood Pressure 103/66 O2 Sat by Pulse 88 L Oximetry 11/22/19 11/22/19 19:45 20:30 Temperature Pulse Rate 96 Respiratory 16 Rate Blood Pressure 114/68 O2 Sat by Pulse 97 99 Oximetry Medical Decision Making - Medical Decision Making EKG shows atrial fibrillation at 87 bpm QRS is 146 QT interval 48 QTC is 490 per patient's EKG shows no ST segment elevation or depression. - Lab Data Result diagrams: 11/25/19 06:40 11/25/19 06:40 Lab Results 11/22/19 11/22/19 11/22/19 Range/Units 17:56 17:56 17:56 WBC 6.3 (3.8-10.6) k/uL RBC 3.61 L (4.30-5.90) m/uL Hgb 8.8 L (13.0-17.5) gm/dL Hct 30.4 L (39.0-53.0) % MCV 84.2 (80.0-100.0) fL MCH 24.4 L (25.0-35.0) pg MCHC 29.0 L (31.0-37.0) g/dL RDW 17.1 H (11.5-15.5) % Plt Count 171 (150-450) k/uL Neutrophils % 81 % Lymphocytes % 8 % Monocytes % 8 % Eosinophils % 0 % Basophils % 0 % Neutrophils # 5.1 (1.3-7.7) k/uL Lymphocytes # 0.5 L (1.0-4.8) k/uL Monocytes # 0.5 (0-1.0) k/uL Eosinophils # 0.0 (0-0.7) k/uL Basophils # 0.0 (0-0.2) k/uL Hypochromasia Marked Anisocytosis Slight PT 12.1 H (9.0-12.0) sec INR 1.2 H (<1.2) APTT 26.0 (22.0-30.0) sec Sodium 139 (137-145) mmol/L Potassium 4.1 (3.5-5.1) mmol/L Chloride 98 (98-107) mmol/L Carbon Dioxide 37 H (22-30) mmol/L Anion Gap 4 mmol/L BUN 23 H (9-20) mg/dL Creatinine 0.55 L (0.66-1.25) mg/dL Est GFR (CKD-EPI)AfAm >90 (>60 ml/min/1.73 sqM) Est GFR (CKD-EPI)NonAf >90 (>60 ml/min/1.73 sqM) Glucose 156 H (74-99) mg/dL Plasma Lactic Acid Gio (0.7-2.0) mmol/L Calcium 8.6 (8.4-10.2) mg/dL Total Bilirubin 0.5 (0.2-1.3) mg/dL AST 59 (17-59) U/L ALT 37 (4-49) U/L Alkaline Phosphatase 75 (38-126) U/L Troponin I (0.000-0.034) ng/mL NT-Pro-B Natriuret Pep pg/mL Total Protein 5.7 L (6.3-8.2) g/dL Albumin 3.3 L (3.5-5.0) g/dL 11/22/19 11/22/19 11/22/19 Range/Units 17:56 17:56 17:56 WBC (3.8-10.6) k/uL RBC (4.30-5.90) m/uL Hgb (13.0-17.5) gm/dL Hct (39.0-53.0) % MCV (80.0-100.0) fL MCH (25.0-35.0) pg MCHC (31.0-37.0) g/dL RDW (11.5-15.5) % Plt Count (150-450) k/uL Neutrophils % % Lymphocytes % % Monocytes % % Eosinophils % % Basophils % % Neutrophils # (1.3-7.7) k/uL Lymphocytes # (1.0-4.8) k/uL Monocytes # (0-1.0) k/uL Eosinophils # (0-0.7) k/uL Basophils # (0-0.2) k/uL Hypochromasia Anisocytosis PT (9.0-12.0) sec INR (<1.2) APTT (22.0-30.0) sec Sodium (137-145) mmol/L Potassium (3.5-5.1) mmol/L Chloride (98-107) mmol/L Carbon Dioxide (22-30) mmol/L Anion Gap mmol/L BUN (9-20) mg/dL Creatinine (0.66-1.25) mg/dL Est GFR (CKD-EPI)AfAm (>60 ml/min/1.73 sqM) Est GFR (CKD-EPI)NonAf (>60 ml/min/1.73 sqM) Glucose (74-99) mg/dL Plasma Lactic Acid Gio 1.3 (0.7-2.0) mmol/L Calcium (8.4-10.2) mg/dL Total Bilirubin (0.2-1.3) mg/dL AST (17-59) U/L ALT (4-49) U/L Alkaline Phosphatase (38-126) U/L Troponin I <0.012 (0.000-0.034) ng/mL NT-Pro-B Natriuret Pep 2070 pg/mL Total Protein (6.3-8.2) g/dL Albumin (3.5-5.0) g/dL Disposition Clinical Impression: Anemia, COPD exacerbation, Chest pain Disposition: ADMITTED IP TO THIS HOSP Condition: Stable
[2019-11-22 18:19] LABS: INR 1.2 (<1.2); Prothrombin Time 12.1 sec (9.0-12.0)
[2019-11-22 18:22] LABS: African American GFR (CKD) >90 (>60 ml/min/1.73 sqM); Albumin 3.3 g/dL (3.5-5.0); Anion Gap 4 mmol/L; Blood Urea Nitrogen 23 mg/dL (9-20); Calcium 8.6 mg/dL (8.4-10.2); Carbon Dioxide 37 mmol/L (22-30); Chloride 98 mmol/L (98-107); Glucose 156 mg/dL (74-99); Non-African American GFR(CKD) >90 (>60 ml/min/1.73 sqM); Potassium 4.1 mmol/L (3.5-5.1); Sodium 139 mmol/L (137-145); Total Protein 5.7 g/dL (6.3-8.2)
[2019-11-22 18:23] LABS: ALT 37 U/L (4-49); AST 59 U/L (17-59); Alkaline Phosphatase 75 U/L (38-126); Total Bilirubin 0.5 mg/dL (0.2-1.3)
--- NOTE | 2019-11-22 18:25 | XR ---
EXAMINATION TYPE: XR chest 2V DATE OF EXAM: 11/22/2019 COMPARISON: 11/19/2019 HISTORY: Difficulty breathing TECHNIQUE: FINDINGS: Heart is enlarged. There is mild blunting of the costophrenic angles. There is mild pulmona ry congestion. There are sternal wires. Thoracic aorta is atheromatous. There are chest leads. IMPRESSION: Cardiomegaly with small pleural effusions. There is probably some mild heart failure. Pul monary vascularity increased compared to old exam.
[2019-11-22] MEDS ORDERED: IPRATROPIUM-ALBUTEROL 3 ML NEB INHALATION PRN ×2 (19:01→22:24)
[2019-11-22 22:38] LABS: Glucose,Whole Blood 239 mg/dL (75-99)
[2019-11-22] MEDS: GABAPENTIN 300 MG CAP PO SCH (22:42)
[2019-11-22] MEDS: INSULIN ASPART (NovoLOG) 100 UNIT/ML VIAL SQ SCH (22:42)
[2019-11-22] MEDS: METOPROLOL TARTRATE 25 MG TAB PO SCH (22:42)
[2019-11-22] MEDS: ATORVASTATIN 40 MG TAB PO SCH (22:42)
[2019-11-22] MEDS: DOXYCYCLINE 100 MG CAP PO SCH (22:42)
[2019-11-22] MEDS: DOCUSATE 100 MG CAP PO SCH (23:12)
[2019-11-23] MEDS: methylPREDNISolone SOD SUCCI 125 MG/2 ML VIAL IV SCH ×5 (00:47→23:46)
[2019-11-23 02:38] LABS: Anisocytosis Slight; Basophils % (A) 0 %; Eosinophils % (A) 0 %; HCT 28.3 % (39.0-53.0); HGB 8.2 gm/dL (13.0-17.5); Hypochromasia Marked; Lymphocytes # (A) 0.4 k/uL (1.0-4.8); Lymphocytes % (A) 7 %; MCH 24.3 pg (25.0-35.0); MCHC 28.8 g/dL (31.0-37.0); MCV 84.4 fL (80.0-100.0); Mean Platelet Volume 6.8; Monocytes # (A) 0.3 k/uL (0-1.0); Monocytes % (A) 5 %; Neutrophils # (A) 4.8 k/uL (1.3-7.7); Neutrophils % (A) 88 %; Platelet Count 156 k/uL (150-450); RBC 3.35 m/uL (4.30-5.90); WBC 5.5 k/uL (3.8-10.6)
[2019-11-23] MEDS: SYMBICORT 80-4.5 MCG INHALER INHALATION SCH ×2 (07:40→18:51)
[2019-11-23] MEDS: IPRATROPIUM-ALBUTEROL 3 ML NEB INHALATION SCH ×4 (07:40→18:50)
[2019-11-23 07:51] LABS: Glucose,Whole Blood 256 mg/dL (75-99)
[2019-11-23] MEDS ORDERED: NON FORMULARY DRUG (Tiotropium 18 Mcg/Puff 1 PUFF) INHALATION SCH (09:00)
[2019-11-23] MEDS ORDERED: FUROSEMIDE 40 MG TAB PO SCH (09:00)
[2019-11-23] MEDS: INSULIN ASPART (NovoLOG) 100 UNIT/ML VIAL SQ SCH ×4 (09:03→22:41)
[2019-11-23] MEDS: METOPROLOL TARTRATE 25 MG TAB PO SCH ×2 (09:04→22:40)
[2019-11-23] MEDS: DOCUSATE 100 MG CAP PO SCH ×2 (09:05→22:42)
[2019-11-23] MEDS: GABAPENTIN 300 MG CAP PO SCH ×3 (09:05→22:40)
[2019-11-23] MEDS: DOXYCYCLINE 100 MG CAP PO SCH ×2 (09:05→22:40)
[2019-11-23] MEDS: oxyCODONE-APAP 10-325MG 1 EACH TAB PO PRN (09:06)
--- NOTE | 2019-11-23 10:51 | P.CONS ---
History of Present Illness - Reason for Consult Consult date: 11/23/19 Wound care - History of Present Illness This is an 79-year-old pleasant male being seen on 5 N. for nonhealing ulceration to the right malleolus. Patient states that the ulceration has been there for approximately greater than [address] Allen in his office for wound care. He has been utilizing absorptive silver to the site. Patient states that the area has not shown any significant improvement over the last few months. Patient also states that he was told that his blood flow is decreased that is why the ulceration is not healing. Past medical history significant for atrial fibrillation with anticoagulants [place], COPD, GERD, hypertension, myocardial infarction, osteo-arthritis, hypothyroidism. Patient wears O2 at 3 L nasal canal times. Patient is a current every day smoker. Denies diabetes Review of Systems Review Of Systems: Constitutional: No fever, no chills, no night sweats. No weight change. No weakness, fatigue or lethargy. No daytime sleepiness. Integumentary:reports wounds, no lesions. No rash or pruritus. No unusual bruising. No change in hair or nails. Past Medical History Past Medical History: Atrial Fibrillation, COPD, GERD/Reflux, Hypertension, Myocardial Infarction ([place]), Musculoskeletal Disorder, Osteoarthritis (OA), Pneumonia, Thyroid Disorder Additional Past Medical History / Comment(s): left breast mass HX OF COLON POLYPS. HX RIGHT BREAST MASS. O2 AT 3L NC all the time. Hx Aspiration Pneumonia R/T "FLAPPER." HX OF THYROID PROBLEM - NO TX NOW. CHRONIC BACK PAIN, RUPESH LEG NT. RT FOOT/ANKLE EDEMA, WEARS TEDS. RUPESH CTS borderline diabetes Last Myocardial Infarction Date:: 1987 History of Any Multi-Drug Resistant Organisms: MRSA Year Discovered:: 1988-chest, 03/2012-01/2013 ankle sore MDRO Source:: staph after open heart; Right Ankle pressure sore Past Surgical History: Back Surgery, Coronary Bypass/CABG, Joint Replacement, Orthopedic Surgery Additional Past Surgical History / Comment(s): left carpel tunnel, CARPAL TUNNEL RIGHT x 2. CABG 1987 X2. RUPESH SCOPES KNEES. Rupesh Hip Replacement, Nicholas Fundoplicaton. Rt Shoulder Rotator Cuff. BACK X2. HX OF EPIDURALS FOR PAIN. esophageal dilation Past Anesthesia/Blood Transfusion Reactions: No Reported Reaction Past Psychological History: No Psychological Hx Reported Additional Psychological History / Comment(s): REFUSES RX Smoking Status: Current every day smoker Past Alcohol Use History: None Reported Additional Past Alcohol Use History / Comment(s): SMOKES 2-3 cig Daily AVG, SINCE TEENS, WAS 1 PPD IN PAST Past Drug Use History: None Reported - Past Family History Daughter(s) Family Medical History: Cancer Father History Unknown: Yes Mother Family Medical History: No Reported History Medications and Allergies Home Medications Medication Instructions Recorded Confirmed Type Metoprolol Tartrate [Lopressor] 25 mg PO BID 08/06/13 11/22/19 History Rivaroxaban [Xarelto] 20 mg PO PC-SUPPER 08/06/13 11/22/19 History Furosemide 40 mg PO DAILY 08/09/13 11/22/19 History Gabapentin 600 mg PO TID 06/24/14 11/22/19 History Fluticasone/Salmeterol [Advair 1 puff INHALATION RT-BID 08/18/14 11/22/19 History 250-50 Diskus] Tiotropium 18 Mcg/Puff [Spiriva] 1 puff INHALATION QAM 08/18/14 11/22/19 History Albuterol Nebulized [Ventolin 2.5 mg INHALATION TID 08/09/16 11/22/19 History Nebulized] oxyCODONE HCL/ACETAMINOPHEN 1 tab PO TID PRN 08/09/16 11/22/19 History [Percocet 10-325 mg] Atorvastatin [Lipitor] 40 mg PO HS 01/20/18 11/22/19 History Multivitamin [Men's Multi-Vitamin] 1 each PO DAILY 01/20/18 11/22/19 History Albuterol Sulfate [Ventolin HFA] 2 puff INHALATION RT-QID PRN 11/22/19 11/22/19 History Doxycycline Hyclate 100 mg PO BID 11/22/19 11/22/19 History Ipratropium-Albuterol Nebulize 3 ml INHALATION RT-QID 11/22/19 11/22/19 History [Duoneb 0.5 mg-3 mg/3 ml Soln] predniSONE See Taper PO DAILY 11/22/19 11/22/19 History Allergies Allergy/AdvReac Type Severity Reaction Status Date / Time No Known Allergies Allergy Verified 11/22/19 21:21 Physical Exam Vitals: Vital Signs Temp Pulse Pulse Resp BP BP Pulse Ox 11/23/19 07:50 83 11/23/19 07:40 80 11/23/19 05:00 98.5 F 74 20 112/58 99 11/23/19 00:18 92 11/23/19 00:07 95 11/22/19 21:00 98.6 F 107 H 20 127/66 97 11/22/19 20:30 96 16 114/68 99 11/22/19 19:45 97 11/22/19 18:44 76 11/22/19 18:31 85 11/22/19 17:13 98.3 F 67 16 103/66 88 L Intake and Output 11/22/19 11/23/19 11/23/19 22:59 06:59 14:59 Intake Total 290 250 Balance 290 250 Intake: Oral 290 250 Other: Voiding Method Urinal Diaper Incontinent # Voids 1 3 2 Weight 72.575 kg Physical exam: General Appearance: Alert, cooperative, no distress, appears stated age. Skin: Full thickness grade 2 pressure ulcer to the right malleolus, ulceration measures proximal 0.1 x 1 x 0.2 cm periwound shows scarring and maceration. Wound bed shows significant amount of slough and minimal granulation with moderate serous drainage. all other Skin color, texture, tugor normal, no rashes or lesions. Neurologic: Alert oriented x3 Results CBC & Chem 7: 11/23/19 02:00 11/22/19 17:56 Labs: Abnormal Lab Results - Last 24 Hours (Table) 11/22/19 11/22/19 11/22/19 Range/Units 17:56 17:56 17:56 RBC 3.61 L (4.30-5.90) m/uL Hgb 8.8 L (13.0-17.5) gm/dL Hct 30.4 L (39.0-53.0) % MCH 24.4 L (25.0-35.0) pg MCHC 29.0 L (31.0-37.0) g/dL RDW 17.1 H (11.5-15.5) % Lymphocytes # 0.5 L (1.0-4.8) k/uL PT 12.1 H (9.0-12.0) sec INR 1.2 H (<1.2) Carbon Dioxide 37 H (22-30) mmol/L BUN 23 H (9-20) mg/dL Creatinine 0.55 L (0.66-1.25) mg/dL Glucose 156 H (74-99) mg/dL POC Glucose (mg/dL) (75-99) mg/dL Total Protein 5.7 L (6.3-8.2) g/dL Albumin 3.3 L (3.5-5.0) g/dL 11/22/19 11/23/19 11/23/19 Range/Units 22:36 02:00 07:36 RBC 3.35 L (4.30-5.90) m/uL Hgb 8.2 L (13.0-17.5) gm/dL Hct 28.3 L (39.0-53.0) % MCH 24.3 L (25.0-35.0) pg MCHC 28.8 L (31.0-37.0) g/dL RDW 17.0 H (11.5-15.5) % Lymphocytes # 0.4 L (1.0-4.8) k/uL PT (9.0-12.0) sec INR (<1.2) Carbon Dioxide (22-30) mmol/L BUN (9-20) mg/dL Creatinine (0.66-1.25) mg/dL Glucose (74-99) mg/dL POC Glucose (mg/dL) 239 H 256 H (75-99) mg/dL Total Protein (6.3-8.2) g/dL Albumin (3.5-5.0) g/dL Assessment and Plan (1) Pressure ulcer of right ankle, stage 2 Current Visit: Yes Status: Acute Code(s): L89.512 - PRESSURE ULCER OF RIGHT ANKLE, STAGE 2 SNOMED Code(s): 806117070 Plan: Apply honey alginate, saline was gauze, dry gauze, rolled gauze secured with paper tape. Change Friday. Use foam boots as needed. Monitor any areas that could cause pressure. Patient to continue wound care with Dr. Allen once discharged. Thank you, for the consultation any questions please contact the wound care center DNP note has been reviewed and discussed with Dr. Yin and the impression and plan of care has been directed as dictated.
--- NOTE | 2019-11-23 11:32 | P.CNPUL ---
History of Present Illness Consult date: 11/23/19 Requesting physician: Adams Abraham Reason for consult: dyspnea Chief complaint: Shortness of breath History of present illness: 79-year-old male patient of Dr. Abraham, with history of COPD, with baseline FEV1 of 35% predicted, coronary artery disease, hyperthyroidism, chronic atrial fibrillation on is a relative, chronic back pain, chronic and ongoing history of smoking, chronic right foot/right ankle ulcer being followed at the [facility], patient follows with Dr. Linares in the pulmonary clinic, and was seen in the office on 11/19/[address] Jim in follow-up for his COPD. Patient was experiencing shortness of breath, cough, wheezing, he was already on a prednisone taper prescribed by his primary care physician and did not see much improvement. Patient has a chronic smoker, and unfortunate continues to smoke about 4-5 cigarettes per day. He denies any fever, chills, no hemoptysis or chest pain. Patient was very short of breath with any activity. He has had no cold with 19 exposure. IM Depo-Medrol 80 mg was administered in the office, doxycycline was given to the patient for a total course of 10 days at 100 mg twice daily. His maintenance inhalers include Advair Diskus, and Spiriva, patient is also on DuoNeb nebulized treatments and Ventolin HFA rescue inhaler. On 11/22/2019 patient came into the emergency department for evaluation of progressive difficulty in breathing, intermittent chest pain on and off, denied radiation of the chest pain to anywhere, no diaphoresis, no nausea or vomiting, no lightheadedness or dizziness. Patient was coughing and bringing up brown colored sputum. Chest x-ray showed cardiomegaly with small pleural effusions, pulmonary vascularity increased likely related to some mild heart failure. EKG showed A. fib with a controlled rate, and right bundle branch block pattern. White blood cell count was 6.3, hemoglobin is 8.8, CO2 is 37, there is the electrolytes are within normal limits, BUN is 23 creatinine 0.55, troponins were less than 0.012, and 0.013. ProBNP was elevated at 2070. Patient was started on IV steroids, 60 mg every 6 hours, DuoNeb, Symbicort, he is on his maintenance dose of oral Lasix 40 mg daily, and IV Lasix was given in the emergency department. He is still dyspneic, but feeling better, better air entry noted bilaterally on today's exam, no complaints of chest pain this morning Review of Systems All systems: negative Constitutional: Denies chills, Denies fever Eyes: denies blurred vision, denies pain Ears, nose, mouth and throat: Denies headache, Denies sore throat Cardiovascular: Reports chest pain, Reports dyspnea on exertion, Denies shortnes s of breath Respiratory: Reports congestion, Reports cough with sputum, Reports dyspnea, Reports home oxygen, Denies cough Gastrointestinal: Denies abdominal pain, Denies diarrhea, Denies nausea, Denies vomiting Musculoskeletal: Denies myalgias Integumentary: Denies pruritus, Denies rash Neurological: Denies numbness, Denies weakness Psychiatric: Denies anxiety, Denies depression Endocrine: Denies fatigue, Denies weight change Past Medical History Past Medical History: Atrial Fibrillation, COPD, GERD/Reflux, Hypertension, Myocardial Infarction ([place]), Musculoskeletal Disorder, Osteoarthritis (OA), Pneumonia, Thyroid Disorder Additional Past Medical History / Comment(s): left breast mass HX OF COLON POLYPS. HX RIGHT BREAST MASS. O2 AT 3L NC all the time. Hx Aspiration Pneumonia R/T "FLAPPER." HX OF THYROID PROBLEM - NO TX NOW. CHRONIC BACK PAIN, JAIME LEG NT. RT FOOT/ANKLE EDEMA, WEARS TEDS. JAIME CTS borderline diabetes Last Myocardial Infarction Date:: 1987 History of Any Multi-Drug Resistant Organisms: MRSA Date of last positivie culture/infection: 1988-chest, 03/2012-01/2013 ankle sore MDRO Source:: staph after open heart; Right Ankle pressure sore Past Surgical History: Back Surgery, Coronary Bypass/CABG, Joint Replacement, Orthopedic Surgery Additional Past Surgical History / Comment(s): left carpel tunnel, CARPAL TUNNEL RIGHT x 2. CABG 1987 X2. JAIME SCOPES KNEES. Jaime Hip Replacement, Nicholas Fundoplicaton. Rt Shoulder Rotator Cuff. BACK X2. HX OF EPIDURALS FOR PAIN. esophageal dilation Past Anesthesia/Blood Transfusion Reactions: No Reported Reaction Past Psychological History: No Psychological Hx Reported Additional Psychological History / Comment(s): REFUSES RX Smoking Status: Current every day smoker Past Alcohol Use History: None Reported Additional Past Alcohol Use History / Comment(s): SMOKES 2-3 cig Daily AVG, S BERNARDO TEENS, WAS 1 PPD IN PAST Past Drug Use History: None Reported - Past Family History Daughter(s) Family Medical History: Cancer Father History Unknown: Yes Mother Family Medical History: No Reported History Medications and Allergies Home Medications Medication Instructions Recorded Confirmed Type Metoprolol Tartrate [Lopressor] 25 mg PO BID 08/06/13 11/22/19 History Rivaroxaban [Xarelto] 20 mg PO PC-SUPPER 08/06/13 11/22/19 History Furosemide 40 mg PO DAILY 08/09/13 11/22/19 History Gabapentin 600 mg PO TID 06/24/14 11/22/19 History Fluticasone/Salmeterol [Advair 1 puff INHALATION RT-BID 08/18/14 11/22/19 History 250-50 Diskus] Tiotropium 18 Mcg/Puff [Spiriva] 1 puff INHALATION QAM 08/18/14 11/22/19 History Albuterol Nebulized [Ventolin 2.5 mg INHALATION TID 08/09/16 11/22/19 History Nebulized] oxyCODONE HCL/ACETAMINOPHEN 1 tab PO TID PRN 08/09/16 11/22/19 History [Percocet 10-325 mg] Atorvastatin [Lipitor] 40 mg PO HS 01/20/18 11/22/19 History Multivitamin [Men's Multi-Vitamin] 1 each PO DAILY 01/20/18 11/22/19 History Albuterol Sulfate [Ventolin HFA] 2 puff INHALATION RT-QID PRN 11/22/19 11/22/19 History Doxycycline Hyclate 100 mg PO BID 11/22/19 11/22/19 History Ipratropium-Albuterol Nebulize 3 ml INHALATION RT-QID 11/22/19 11/22/19 History [Duoneb 0.5 mg-3 mg/3 ml Soln] predniSONE See Taper PO DAILY 11/22/19 11/22/19 History Allergies Allergy/AdvReac Type Severity Reaction Status Date / Time No Known Allergies Allergy Verified 11/22/19 21:21 Physical Exam Vitals: Vital Signs Temp Pulse Pulse Resp BP BP Pulse Ox 11/23/19 07:50 83 11/23/19 07:40 80 11/23/19 05:00 98.5 F 74 20 112/58 99 11/23/19 00:18 92 09/01/20 00:07 95 11/22/19 21:00 98.6 F 107 H 20 127/66 97 11/22/19 20:30 96 16 114/68 99 11/22/19 19:45 97 11/22/19 18:44 76 11/22/19 18:31 85 11/22/19 17:13 98.3 F 67 16 103/66 88 L Intake and Output 11/22/19 11/23/19 11/23/19 22:59 06:59 14:59 Intake Total 290 250 Balance 290 250 Intake: Oral 290 250 Other: Voiding Method Urinal Diaper Incontinent # Voids 1 3 2 Weight 72.575 kg GENERAL EXAM: Alert, very pleasant, 79-year-old white male, currently on 3 L of oxygen with pulse ox of 99%. Dyspneic with conversation,but no apparent distress. HEAD: Normocephalic/atraumatic. EYES: Normal reaction of pupils, equal size. Conjunctiva pink, sclera white. NOSE: Clear with pink turbinates. THROAT: No erythema or exudates. NECK: No masses, no JVD, no thyroid enlargement, no adenopathy. CHEST: No chest wall deformity. Symmetrical expansion. LUNGS: Diminished air entry bilaterally with no crackles, wheeze, rhonchi or dullness. CVS: Irregular rate and rhythm, normal S1 and S2, no gallops, no murmurs, no rubs ABDOMEN: Soft, nontender. No hepatosplenomegaly, normal bowel sounds, no guarding or rigidity. EXTREMITIES: No clubbing, 1+ ankle and pedal edema, trace pretibial edema edema, no cyanosis, 2+ pulses and upper and lower extremities. Ulcerated wound on the right anckle MUSCULOSKELETAL: Muscle strength and tone normal. SPINE: No scoliosis or deformity SKIN: No rashes CENTRAL NERVOUS SYSTEM: Alert and oriented -3. No focal deficits, tone is normal in all 4 extremities. PSYCHIATRIC: Alert and oriented -3. Appropriate affect. Intact judgment and insight. Results - Laboratory Findings CBC and BMP: 11/23/19 02:00 11/22/19 17:56 PT/INR, D-dimer PT 12.1 sec (9.0-12.0) H 11/22/19 17:56 INR 1.2 (<1.2) H 11/22/19 17:56 Abnormal lab findings: Abnormal Labs 11/22/19 11/22/19 11/22/19 17:56 17:56 17:56 RBC 3.61 L Hgb 8.8 L Hct 30.4 L MCH 24.4 L MCHC 29.0 L RDW 17.1 H Lymphocytes # 0.5 L PT 12.1 H INR 1.2 H Carbon Dioxide 37 H BUN 23 H Creatinine 0.55 L Glucose 156 H POC Glucose (mg/dL) Total Protein 5.7 L Albumin 3.3 L 11/22/19 11/23/19 11/23/19 22:36 02:00 07:36 RBC 3.35 L Hgb 8.2 L Hct 28.3 L MCH 24.3 L MCHC 28.8 L RDW 17.0 H Lymphocytes # 0.4 L PT INR Carbon Dioxide BUN Creatinine Glucose POC Glucose (mg/dL) 239 H 256 H Total Protein Albumin - Diagnostic Findings Chest x-ray: report reviewed, image reviewed Additional studies: EKG reviewed Assessment and Plan Plan: Assessment: #1. Acute on chronic hypoxic respiratory failure related to acute exacerbation of COPD, and acute exacerbation of CHF with previously documented diastolic dysfunction #2. Advanced stage III COPD, with chronic hypoxic respiratory failure at 2 L/m #3. Failed outpatient treatment for acute exacerbation of COPD, and tracheobronchitis #4. Chronic A. fib, on is a little, with controlled rate #5. Hypertension #6. History of myocardial infarction #7. History of chronic wound on the right ankle, follows at the wound care center #8. History of MRSA infection in the ankle wound #9. History of coronary artery disease with previous bypass grafting #10. History of osteoarthritis #11. Chronic back pain #12. History of GERD/reflux #13. Multiple orthopedic surgeries, including right shoulder rotator cuff, bilateral hip replacement, carpal tunnel surgery on the right #14. Chronic and ongoing history of smoking Plan: Continue with IV steroids, we'll give the patient IV Lasix 40 mg every 12 hours for 24 hours, repeat chest x-ray in the morning, continue with nebulized bron chodilators, continue with oral anticoagulation. Continue with current antibiotic coverage. We'll continue to follow I performed a history & physical examination of the patient and discussed their management with my nurse practitioner, Ele Brown. I reviewed the nurse practitioner's note and agree with the documented findings and plan of care. Lung sounds are positive for diminished breath sounds. The findings and the impression was discussed with the patient. I attest to the documentation by the nurse practitioner. Time with Patient: Greater than 30
[2019-11-23 13:09] LABS: Glucose,Whole Blood 136 mg/dL (75-99)
[2019-11-23] MEDS: FUROSEMIDE 10 MG/ML 4 ML VIAL IV SCH ×2 (13:44→22:42)
--- NOTE | 2019-11-23 13:59 | P.CRDCN ---
History of Present Illness History of present illness: HISTORY OF PRESENTING ILLNESS This is a pleasant 79-year-old male past medical history significant for coronary artery disease status post two-vessel bypass grafting with a QUEEN to LAD and SVG to diet, chronic diastolic heart failure, chronic persistent atrial fibrillation, dyslipidemia, hypertension, COPD and chronic nicotine dependence. He follows in the office with Dr. Landeros. We have been asked to see in consultation for right lower extremity nonhealing ulceration. He recently established in the office with Dr. Landeros after Dr. Sanchez's half-way. Dr. Landeros did thorough peripheral evaluation and has recommended arterial duplex of the right lower extremity. The patient is scheduled to have this performed in the office next week. However he presented to the hospital yesterday with significant shortness of breath and was found to be in acute exacerbation of COPD. He was initiated on updraft treatments along with steroids and today he seems to be feeling better. He states his breathing is back to baseline but he does feel much better than yesterday. He is seen and examined resting comfortably laying flat in bed in no acute distress. He has an ulceration noted to the medial aspect of the right foot. The patient states he underwent extensive treatment in the wound care center for 9 months and his wound did improve however it returned and he has been dealing with again for the previous 3 months with his primary care physician in the office. The right lower extremity is significantly edematous with 2+ pitting edema up to the knee and a faint pulse palpated. He complains of pain in the foot with ambulation. Left lower extremity is warm to touch with palpated pulse and no significant edema. He denies symptoms of chest pain, dizziness or palpitations. DIAGNOSTICS EKG reveals atrial fibrillation with right bundle branch block. Chest xray increased pulmonary vascularity and small pleural effusions. Laboratory reviewed, CBC 5.5, hemoglobin 8.2, platelets 156, INR 1.2, sodium 139, potassium 4.1, creatinine 0.55, cardiac enzymes negative 2, NT proBNP 2069. Current cardiac medications include Lopressor 25 mg twice a day, Xarelto 20 mg daily, atorvastatin 40 mg at bedtime and Lasix 40 mg daily. Most recent echocardiogram obtained the office in 2019 revealed preserved LV systolic function with no significant wall motion abnormalities, mild MR and mild TR. REVIEW OF SYSTEMS At the time of my exam: CONSTITUTIONAL: Denies fever or chills. CARDIOVASCULAR: Denies chest pain, shortness of breath, orthopnea, PND or palpitations. RESPIRATORY: Denies cough. GASTROINTESTINAL: Denies abdominal pain, diarrhea, constipation, nausea or vomiting. MUSCULOSKELETAL: Denies myalgias. NEUROLOGIC: Denies numbness, tingling or weakness. ENDOCRINE: Denies fatigue, weight change, polydipsia or polyurina. GENITOURINARY: Denies burning, hematuria or urgency with micturation. HEMATOLOGIC: Denies history of anemia or bleeding. PHYSICAL EXAMINATION Blood pressure 119/60 heart rate 69 afebrile and maintaining oxygen saturation on nasal cannula. CONSTITUTIONAL: No apparent distress. HEENT: Head is normocephalic. Pupils are equal, round. Sclerae anicteric. Mucous membranes of the mouth are moist. No JVD. No carotid bruit. CHEST EXAMINATION: Lungs are clear to auscultation. No chest wall tenderness is noted on palpation or with deep breathing. Diminished bilaterally. HEART EXAMINATION: Regular rate and rhythm. S1, S2 heard. No murmurs, gallops or rub. ABDOMEN: Soft, nontender. Positive bowel sounds. EXTREMITIES: 1+ peripheral pulses, right lower extremity 2+ pitting edema with ulceration noted on the medial ankle with dressing in place, no edema to the left and no calf tenderness. NEUROLOGIC EXAMINATION: Patient is awake, alert and oriented x3. ASSESSMENT Critical limb ischemia Non healing right lower extremity ulceration Acute exacerbation of COPD Acute on chronic diastolic heart failure, mild Coronary artery disease status post bypass grafting Chronic persistent atrial fibrillation on long-term anticoagulation Dyslipidemia Hypertension Chronic nicotine dependence PLAN Obtain right lower extremity venous and arterial Doppler. Increase oral Lasix to 40 mg by mouth daily. Obtain repeat echocardiogram to assess cardiac structure and function. Further recommendations to follow based upon clinical course. Thank you kindly for this consultation. Nurse Practitioner note has been reviewed, I agree with a documented findings a nd plan of care. Patient was seen and examined. Past Medical History Past Medical History: Atrial Fibrillation, COPD, GERD/Reflux, Hypertension, Myocardial Infarction ([place]), Musculoskeletal Disorder, Osteoarthritis (OA), Pneumonia, Thyroid Disorder Additional Past Medical History / Comment(s): left breast mass HX OF COLON POLYPS. HX RIGHT BREAST MASS. O2 AT 3L NC all the time. Hx Aspiration Pneumonia R/T "FLAPPER." HX OF THYROID PROBLEM - NO TX NOW. CHRONIC BACK PAIN, RUPESH LEG NT. RT FOOT/ANKLE EDEMA, WEARS TEDS. RUPESH CTS borderline diabetes Last Myocardial Infarction Date:: 1987 History of Any Multi-Drug Resistant Organisms: MRSA Date of last positivie culture/infection: 1988-chest, 03/2012-01/2013 ankle sore MDRO Source:: staph after open heart; Right Ankle pressure sore Past Surgical History: Back Surgery, Coronary Bypass/CABG, Joint Replacement, Orthopedic Surgery Additional Past Surgical History / Comment(s): left carpel tunnel, CARPAL TUNNEL RIGHT x 2. CABG 1988 X2. RUPESH SCOPES KNEES. Rupesh Hip Replacement, Nicholas Fundoplicaton. Rt Shoulder Rotator Cuff. BACK X2. HX OF EPIDURALS FOR PAIN. esophageal dilation Past Anesthesia/Blood Transfusion Reactions: No Reported Reaction Past Psychological History: No Psychological Hx Reported Additional Psychological History / Comment(s): REFUSES RX Smoking Status: Current every day smoker Past Alcohol Use History: None Reported Additional Past Alcohol Use History / Comment(s): SMOKES 2-3 cig Daily AVG, SINCE TEENS, WAS 1 PPD IN PAST Past Drug Use History: None Reported - Past Family History Daughter(s) Family Medical History: Cancer Father History Unknown: Yes Mother Family Medical History: No Reported History Medications and Allergies Home Medications Medication Instructions Recorded Confirmed Type Metoprolol Tartrate [Lopressor] 25 mg PO BID 08/06/13 11/22/19 History Rivaroxaban [Xarelto] 20 mg PO PC-SUPPER 08/06/13 11/22/19 History Furosemide 40 mg PO DAILY 08/09/13 11/22/19 History Gabapentin 600 mg PO TID 06/24/14 11/22/19 History Fluticasone/Salmeterol [Advair 1 puff INHALATION RT-BID 08/18/14 11/22/19 History 250-50 Diskus] Tiotropium 18 Mcg/Puff [Spiriva] 1 puff INHALATION QAM 08/18/14 11/22/19 History Albuterol Nebulized [Ventolin 2.5 mg INHALATION TID 08/09/16 11/22/19 History Nebulized] oxyCODONE HCL/ACETAMINOPHEN 1 tab PO TID PRN 08/09/16 11/22/19 History [Percocet 10-325 mg] Atorvastatin [Lipitor] 40 mg PO HS 01/20/18 11/22/19 History Multivitamin [Men's Multi-Vitamin] 1 each PO DAILY 01/20/18 11/22/19 History Albuterol Sulfate [Ventolin HFA] 2 puff INHALATION RT-QID PRN 11/22/19 11/22/19 History Doxycycline Hyclate 100 mg PO BID 11/22/19 11/22/19 History Ipratropium-Albuterol Nebulize 3 ml INHALATION RT-QID 11/22/19 11/22/19 History [Duoneb 0.5 mg-3 mg/3 ml Soln] predniSONE See Taper PO DAILY 11/22/19 11/22/19 History Allergies Allergy/AdvReac Type Severity Reaction Status Date / Time No Known Allergies Allergy Verified 11/22/19 21:21 Physical Exam Vitals: Vital Signs Temp Pulse Pulse Resp BP BP Pulse Ox 11/23/19 13:00 98.1 F 69 16 119/60 92 L 11/23/19 11:40 84 11/23/19 11:25 84 11/23/19 08:00 74 20 11/23/19 07:50 83 11/23/19 07:40 80 11/23/19 05:00 98.5 F 74 20 112/58 99 11/23/19 00:18 92 11/23/19 00:07 95 11/22/19 21:00 98.6 F 107 H 20 127/66 97 11/22/19 20:30 96 16 114/68 99 11/22/19 19:45 97 11/22/19 18:44 76 11/22/19 18:31 85 11/22/19 17:13 98.3 F 67 16 103/66 88 L Intake and Output 11/22/19 11/23/19 11/23/19 22:59 06:59 14:59 Intake Total 290 250 Balance 290 250 Intake: Oral 290 250 Other: Voiding Method Urinal Urinal Diaper Diaper Incontinent Incontinent # Voids 1 3 2 Weight 72.575 kg Results 11/23/19 02:00 11/22/19 17:56 Cardiac Enzymes 11/22/19 11/22/19 11/23/19 Range/Units 17:56 17:56 02:00 AST 59 (17-59) U/L Troponin I <0.012 0.013 (0.000-0.034) ng/mL Coagulation 11/22/19 Range/Units 17:56 PT 12.1 H (9.0-12.0) sec APTT 26.0 (22.0-30.0) sec CBC 11/22/19 11/23/19 Range/Units 17:56 02:00 WBC 6.3 5.5 (3.8-10.6) k/uL RBC 3.61 L 3.35 L (4.30-5.90) m/uL Hgb 8.8 L 8.2 L (13.0-17.5) gm/dL Hct 30.4 L 28.3 L (39.0-53.0) % Plt Count 171 156 (150-450) k/uL Comprehensive Metabolic Panel 11/22/19 Range/Units 17:56 Sodium 139 (137-145) mmol/L Potassium 4.1 (3.5-5.1) mmol/L Chloride 98 (98-107) mmol/L Carbon Dioxide 37 H (22-30) mmol/L BUN 23 H (9-20) mg/dL Creatinine 0.55 L (0.66-1.25) mg/dL Glucose 156 H (74-99) mg/dL Calcium 8.6 (8.4-10.2) mg/dL AST 59 (17-59) U/L ALT 37 (4-49) U/L Alkaline Phosphatase 75 (38-126) U/L Total Protein 5.7 L (6.3-8.2) g/dL Albumin 3.3 L (3.5-5.0) g/dL Current Medications Generic Name Dose Route Start Last Admin Trade Name Freq PRN Reason Stop Dose Admin Albuterol/Ipratropium 3 ml 11/23/19 08:00 11/23/19 11:25 Duoneb 0.5 Mg-3 Mg/3 Ml Soln INHALATION 3 ml RT-QID JULISSA Administration Albuterol/Ipratropium 3 ml 11/22/19 22:24 11/23/19 00:07 Duoneb 0.5 Mg-3 Mg/3 Ml Soln INHALATION 3 ml Q2H PRN Administration Shortness Of Breath Or Wheezing Atorvastatin Calcium 40 mg 11/22/19 22:30 11/22/19 22:42 Lipitor PO 40 mg HS JULISSA Administration Budesonide/Formoterol Fumarate 2 puff 11/23/19 08:00 11/23/19 07:40 Symbicort 80-4.5 Mcg Inhaler INHALATION 2 puff RT-BID JULISSA Administration Docusate Sodium 100 mg 11/22/19 22:45 11/23/19 09:05 Colace PO 100 mg BID JULISSA Administration Doxycycline Monohydrate 100 mg 11/22/19 22:30 11/23/19 09:05 Vibramycin PO 100 mg BID JULISSA Administration Furosemide 40 mg 11/23/19 11:30 11/23/19 13:44 Lasix IV 40 mg Q12HR JULISSA Administration Gabapentin 600 mg 11/22/19 22:30 11/23/19 09:05 Neurontin PO 600 mg TID JULISSA Administration Insulin Aspart 0 unit 11/22/19 22:23 11/23/19 13:45 Novolog SQ 1 unit ACHS JULISSA Administration Protocol Methylprednisolone Sodium Succinate 60 mg 11/23/19 00:00 11/23/19 13:45 Solu-Medrol IV 60 mg Q6HR JULISSA Administration Metoprolol Tartrate 25 mg 11/22/19 22:30 11/23/19 09:04 Lopressor PO 25 mg BID JULISSA Administration Oxycodone/Acetaminophen 1 each 11/22/19 22:21 11/23/19 09:06 Percocet 10-325 PO 1 each TID PRN Administration Pain Rivaroxaban 20 mg 11/23/19 18:30 Xarelto PO PC-SUPPER [facility] Intake and Output 11/22/19 11/23/19 11/23/19 22:59 06:59 14:59 Intake Total 290 250 Balance 290 250 Intake: Oral 290 250 Other: Voiding Method Urinal Urinal Diaper Diaper Incontinent Incontinent # Voids 1 3 2 Weight 72.575 kg 11/23/19 02:00 11/22/19 17:56
--- NOTE | 2019-11-23 15:01 | US ---
EXAMINATION TYPE: US venous doppler duplex LE RT DATE OF EXAM: 11/23/2019 12:49 PM COMPARISON: Prior venous ultrasound March 16, 2012 CLINICAL HISTORY: swelling. Edema SIDE PERFORMED: Right TECHNIQUE: The lower extremity deep venous system is examined utilizing real time linear array sonog luis with graded compression, doppler sonography and color-flow sonography. VESSELS IMAGED: External Iliac Vein (EIV) Common Femoral Vein Deep Femoral Vein Greater Saphenous Vein * Femoral Vein Popliteal Vein Small Saphenous Vein * Proximal Calf Veins (* superficial vessels) Right Leg: Negative for DVT Grayscale, color doppler, spectral doppler imaging performed of the deep veins of the right lower ext remity. There is normal flow, compressibility, vascular waveforms. IMPRESSION: No ultrasound evidence for acute DVT in the right lower extremity.
--- NOTE | 2019-11-23 15:38 | P.HPIM ---
History of Present Illness H&P Date: 11/23/19 Chief Complaint: Difficulty breathing This is an 79-year-old gentleman with past medical history for CAD, stenting, CABG, CHF, atrial fibrillation, hypertension, ongoing nicotine dependence, COPD, recurrent nonhealing ulcer right medial ankle previously treated in the wound c are center, recently evaluated by Dr. Landeros, and multiple other medical issues, presented to the ER with worsening shortness of breath accompanied by productive cough, intermittent chest pain. Currently denies chest pain, palpitations. Denies fever or chills. Denies nausea vomiting or diarrhea. No diaphoresis. Denies lightheadedness dizziness or focal deficits. Reports over the last few weeks he did sustain a few falls. Chest x-ray reported mild CHF, small pleural effusions with increased pulmonary vascularity compared to prior. EKG reporting right bundle branch block, atrial fibrillation, controlled ventricular rate. Troponins less than 0.012, and 0.013. ProBNP was elevated at 2070. Doppler ultrasound negative for acute DVT in the right lower extremity. Patient also reported bruises on coccyx and forehead secondary to falls sustained in the last 3 weeks, secondary to gait dysfunction. Denies syncope. Review of Systems ROS Statement: Those systems with pertinent positive or pertinent negative responses have been documented in the HPI. ROS Other: All systems not noted in ROS Statement are negative. Past Medical History Past Medical History: Atrial Fibrillation, COPD, GERD/Reflux, Hypertension, Myocardial Infarction ([place]), Musculoskeletal Disorder, Osteoarthritis ([place]), Pneumonia, Thyroid Disorder Additional Past Medical History / Comment(s): left breast mass HX OF COLON POLYPS. HX RIGHT BREAST MASS. O2 AT 3L NC all the time. Hx Aspiration Pneumonia R/T "FLAPPER." HX OF THYROID PROBLEM - NO TX NOW. CHRONIC BACK PAIN, RUPESH LEG NT. RT FOOT/ANKLE EDEMA, WEARS TEDS. RUPESH CTS borderline diabetes Last Myocardial Infarction Date:: 1987 History of Any Multi-Drug Resistant Organisms: MRSA Date of last positivie culture/infection: 1988-chest, 03/2012-01/2013 ankle sore MDRO Source:: staph after open heart; Right Ankle pressure sore Past Surgical History: Back Surgery, Coronary Bypass/CABG, Joint Replacement, Orthopedic Surgery Additional Past Surgical History / Comment(s): left carpel tunnel, CARPAL TUNNEL RIGHT x 2. CABG 1987 X2. RUPESH SCOPES KNEES. Rupesh Hip Replacement, Nicholas Fundoplicaton. Rt Shoulder Rotator Cuff. BACK X2. HX OF EPIDURALS FOR PAIN. esophageal dilation Past Anesthesia/Blood Transfusion Reactions: No Reported Reaction Past Psychological History: No Psychological Hx Reported Additional Psychological History / Comment(s): REFUSES RX Smoking Status: Current every day smoker Past Alcohol Use History: None Reported Additional Past Alcohol Use History / Comment(s): SMOKES 2-3 cig Daily AVG, SINCE TEENS, WAS 1 PPD IN PAST Past Drug Use History: None Reported - Past Family History Daughter(s) Family Medical History: Cancer Father History Unknown: Yes Mother Family Medical History: No Reported History Medications and Allergies Home Medications Medication Instructions Recorded Confirmed Type Metoprolol Tartrate [Lopressor] 25 mg PO BID 08/06/13 11/22/19 History Rivaroxaban [Xarelto] 20 mg PO PC-SUPPER 08/06/13 11/22/19 History Furosemide 40 mg PO DAILY 08/09/13 11/22/19 History Gabapentin 600 mg PO TID 06/24/14 11/22/19 History Fluticasone/Salmeterol [Advair 1 puff INHALATION RT-BID 08/18/14 11/22/19 History 250-50 Diskus] Tiotropium 18 Mcg/Puff [Spiriva] 1 puff INHALATION QAM 08/18/14 11/22/19 History Albuterol Nebulized [Ventolin 2.5 mg INHALATION TID 08/09/16 11/22/19 History Nebulized] oxyCODONE HCL/ACETAMINOPHEN 1 tab PO TID PRN 08/09/16 11/22/19 History [Percocet 10-325 mg] Atorvastatin [Lipitor] 40 mg PO HS 01/20/18 11/22/19 History Multivitamin [Men's Multi-Vitamin] 1 each PO DAILY 01/20/18 11/22/19 History Albuterol Sulfate [Ventolin HFA] 2 puff INHALATION RT-QID PRN 11/22/19 11/22/19 History Doxycycline Hyclate 100 mg PO BID 11/22/19 11/22/19 History Ipratropium-Albuterol Nebulize 3 ml INHALATION RT-QID 11/22/19 11/22/19 History [Duoneb 0.5 mg-3 mg/3 ml Soln] predniSONE See Taper PO DAILY 11/22/19 11/22/19 History Allergies Allergy/AdvReac Type Severity Reaction Status Date / Time No Known Allergies Allergy Verified 11/22/19 21:21 Physical Exam Vitals: Vital Signs Temp Pulse Pulse Resp BP BP Pulse Ox 11/23/19 11:40 84 11/23/19 11:25 84 11/23/19 07:50 83 11/23/19 07:40 80 11/23/19 05:00 98.5 F 74 20 112/58 99 11/23/19 00:18 92 11/23/19 00:07 95 11/22/19 21:00 98.6 F 107 H 20 127/66 97 11/22/19 20:30 96 16 114/68 99 11/22/19 19:45 97 11/22/19 18:44 76 11/22/19 18:31 85 11/22/19 17:13 98.3 F 67 16 103/66 88 L Intake and Output 11/22/19 11/23/19 11/23/19 22:59 06:59 14:59 Intake Total 290 250 Balance 290 250 Intake: Oral 290 250 Other: Voiding Method Urinal Diaper Incontinent # Voids 1 3 2 Weight 72.575 kg PHYSICAL EXAM: VITAL SIGNS: As above GENERAL: Sitting up in bed, no acute distress HEENT: Conjunctivae normal. eyes normal. NECK: No JVD. No thyroid enlargement. No LNs CARDIOVASCULAR: S1, S2 regular.. No murmur RESPIRATION: Breath sounds diminished in the bases. No rhonchi.fine bibasilar crackles right greater than left. No bronchial breathing. ABDOMEN: Soft, nontender . No guarding. no masses palpable. No ascites, No hepatosplenomegaly.Bowel sounds heard. LEGS: Positive edema right lower extremity with recurrent medial ankle ulceration, nontender, faint diminished pulses, cool to touch. Left lower ex tremity, no edema, positive pulses, no calf tenderness PSYCHIATRY: Alert and oriented X3, mood and affect normal. NERVOUS SYSTEM: Cranial N 2-12 grossly normal. Moves all 4 limbs. Diffuse weakness No focal deficits. Strength and sensation grossly intact.. Skin: Warm and dry, no rash Lymphatic system. No LN neck axilla. Results CBC & Chem 7: 11/23/19 02:00 11/22/19 17:56 Labs: Abnormal Lab Results - Last 24 Hours (Table) 11/22/19 11/22/19 11/22/19 Range/Units 17:56 17:56 17:56 RBC 3.61 L (4.30-5.90) m/uL Hgb 8.8 L (13.0-17.5) gm/dL Hct 30.4 L (39.0-53.0) % MCH 24.4 L (25.0-35.0) pg MCHC 29.0 L (31.0-37.0) g/dL RDW 17.1 H (11.5-15.5) % Lymphocytes # 0.5 L (1.0-4.8) k/uL PT 12.1 H (9.0-12.0) sec INR 1.2 H (<1.2) Carbon Dioxide 37 H (22-30) mmol/L BUN 23 H (9-20) mg/dL Creatinine 0.55 L (0.66-1.25) mg/dL Glucose 156 H (74-99) mg/dL POC Glucose (mg/dL) (75-99) mg/dL Total Protein 5.7 L (6.3-8.2) g/dL Albumin 3.3 L (3.5-5.0) g/dL 11/22/19 11/23/19 11/23/19 Range/Units 22:36 02:00 07:36 RBC 3.35 L (4.30-5.90) m/uL Hgb 8.2 L (13.0-17.5) gm/dL Hct 28.3 L (39.0-53.0) % MCH 24.3 L (25.0-35.0) pg MCHC 28.8 L (31.0-37.0) g/dL RDW 17.0 H (11.5-15.5) % Lymphocytes # 0.4 L (1.0-4.8) k/uL PT (9.0-12.0) sec INR (<1.2) Carbon Dioxide (22-30) mmol/L BUN (9-20) mg/dL Creatinine (0.66-1.25) mg/dL Glucose (74-99) mg/dL POC Glucose (mg/dL) 239 H 256 H (75-99) mg/dL Total Protein (6.3-8.2) g/dL Albumin (3.5-5.0) g/dL Thrombosis Risk Factor Assmnt - Choose All That Apply Any of the Below Risk Factors Present?: Yes Each Factor Represents 1 point: Abnormal pulmonary function (COPD), Medical pt on bed rest, Swollen legs (current) Other Risk Factors: Yes Each Risk Factor Represents 2 Points: Patient confined to bed Each Risk Factor Represents 3 Points: Age 75 years or older Other congenital or acquired thrombophilia - If yes, enter type in comment: No Thrombosis Risk Factor Assessment Total Risk Factor Score: 8 Thrombosis Risk Factor Assessment Level: High Risk Assessment and Plan Assessment: Acute on chronic hypoxic respiratory failure secondary to Acute COPD exacerbation, acute on chronic diastolic CHF Recurrent Right medial ankle nonhealing ulcer, suspect arterial occlusion, present on admission Recent falls secondary to the above Chronic persistent atrial fibrillation Gastroesophageal reflux disease CAD, history of [place], CABG Hypertension Osteoarthritis Borderline diabetes, hemoglobin A1c pending Ongoing nicotine dependence Chronic back pain Plan: Continue on current medication regime ,monitoring and symptomatic treatment. Continue with nebulized bronchodilators, IV steroids, IV diuretics. Pulmonary consult in place. Dr. Landeros, cardiology consulted regarding potential arterial occlusion, venous and arterial Doppler. Home meds have been reviewed and resumed accordingly. GI and DVT prophylaxis in place.PT/OT consulted. Brain CT ordered secondary to recent multiple falls, bruising on the forehead, in a patient on long-term anticoagulation. Wound care consulted. The impression and plan of care has been dictated as directed. : I performed a history and examination of this patient, discussed the same with the dictator. I agree with the dictator's note ,documented as a scribe. Any additional findings or plans will be noted.
[2019-11-23 16:59] LABS: Glucose,Whole Blood 168 mg/dL (75-99)
--- NOTE | 2019-11-23 17:13 | CT ---
EXAMINATION TYPE: CT brain wo con DATE OF EXAM: 11/23/2019 COMPARISON: 09/23/2014 HISTORY: ams, confusion, fall CT DLP: 1133.3 mGycm Automated exposure control for dose reduction was used. There is diffuse cerebral cortical atrophy. There is no mass effect nor midline shift. There is no si gn of intracranial hemorrhage. There is more noticeable left frontal lobe atrophy. The calvarium is i ntact. There is widening of the subdural space over the left cerebral hemisphere consistent with a cy st chronic subdural hygroma. The calvarium is intact. IMPRESSION: Cerebral atrophy. Old left frontal infarct is a change compared to old exam. There is progression of the atrophy compared to old exam. There is left side chronic subdural hygroma that measures up to 7 mm in thickness which is a change compared to old exam.
--- NOTE | 2019-11-23 17:31 | ECHOF ---
Referral Reason:sob, lower extremity swelling MEASUREMENTS -------- HEIGHT: 175.3 cm WEIGHT: 72.6 kg BP: 119/60 RVIDd: 3.8 cm (< 3.3) IVSd: 1.4 cm (0.6 - 1.1) LVIDd: 4.8 cm (3.9 - 5.3) LVPWd: 1.4 cm (0.6 - 1.1) IVSs: 1.8 cm LVIDs: 3.6 cm LVPWs: 1.7 cm LA Diam: 4.9 cm (2.7 - 3.8) LAESV Index (A-L): 64.94 ml/m Ao Diam: 3.7 cm (2.0 - 3.7) AV Cusp: 2.2 cm (1.5 - 2.6) MV EXCURSION: 24.595 mm (> 18.000) MV EF SLOPE: 204 mm/s (70 - 150) EPSS: 0.5 cm RAP: 5.00 mmHg RVSP: 56.02 mmHg FINDINGS -------- Atrial fibrillation. This was a technically good study. The left ventricular size is normal. There is moderate concentric left ventricular hypertrophy. O verall left ventricular systolic function is normal with, an EF between 55 - 60 %. Apical septum LV wall motion is hypokinetic. The right ventricle is moderately enlarged. LA is severely dilated >40 ml/m2 The right atrium is normal in size. Interatrial and interventricular septum intact. There is mild aortic valve sclerosis. The mitral valve leaflets are mildly thickened. Mild mitral annular calcification present. There is trace to mild mitral regurgitation. Moderate tricuspid regurgitation present. There is moderate to severe pulmonary hypertension. The right ventricular systolic pressure, as measured by Doppler, is 56.02mmHg. Trace/mild (physiologic) pulmonic regurgitation. The aortic root size is normal. The inferior vena cava is mildly dilated. There is no pericardial effusion. CONCLUSIONS -------- 1. Atrial fibrillation. 2. The left ventricular size is normal. 3. There is moderate concentric left ventricular hypertrophy. 4. Overall left ventricular systolic function is normal with, an EF between 55 - 60 %. 5. Apical septum LV wall motion is hypokinetic. 6. The right ventricle is moderately enlarged. 7. LA is severely dilated >40 ml/m2 8. There is mild aortic valve sclerosis. 9. The mitral valve leaflets are mildly thickened. 10. Mild mitral annular calcification present. 11. There is trace to mild mitral regurgitation. 12. Moderate tricuspid regurgitation present. 13. There is moderate to severe pulmonary hypertension. 14. The right ventricular systolic pressure, as measured by Doppler, is 56.02mmHg. 15. Trace/mild (physiologic) pulmonic regurgitation. 16. The inferior vena cava is mildly dilated. 17. There is no pericardial effusion. WIND T[employer]NEL ENGINEER: JOCELYN Le
[2019-11-23] MEDS: RIVAROXABAN 20 MG TAB PO SCH (17:36)
[2019-11-23 19:54] LABS: Glucose,Whole Blood 165 mg/dL (75-99)
[2019-11-23 21:49] LABS: Hemoglobin A1C 6.4 % (4.0-6.0)
[2019-11-23] MEDS: ATORVASTATIN 40 MG TAB PO SCH (22:40)
[2019-11-24] MEDS: methylPREDNISolone SOD SUCCI 125 MG/2 ML VIAL IV SCH ×4 (05:23→22:48)
[2019-11-24 06:12] LABS: Glucose,Whole Blood 186 mg/dL (75-99)
[2019-11-24] MEDS ORDERED: FUROSEMIDE 10 MG/ML 4 ML VIAL ONE (08:30)
[2019-11-24] MEDS ORDERED: METOPROLOL TARTRATE 25 MG TAB ONE (08:31)
[2019-11-24] MEDS: DOXYCYCLINE 100 MG CAP PO SCH ×2 (08:35→21:34)
[2019-11-24] MEDS: METOPROLOL TARTRATE 25 MG TAB PO SCH ×2 (08:35→21:34)
[2019-11-24] MEDS: GABAPENTIN 300 MG CAP PO SCH ×3 (08:35→21:35)
[2019-11-24] MEDS: DOCUSATE 100 MG CAP PO SCH ×2 (08:35→21:34)
[2019-11-24] MEDS: FUROSEMIDE 10 MG/ML 4 ML VIAL IV SCH ×2 (08:35→21:36)
[2019-11-24] MEDS: INSULIN ASPART (NovoLOG) 100 UNIT/ML VIAL SQ SCH ×4 (08:35→21:35)
[2019-11-24] MEDS: oxyCODONE-APAP 10-325MG 1 EACH TAB PO PRN (08:41)
[2019-11-24 09:21] LABS: Anisocytosis Slight; HGB 8.8 gm/dL (13.0-17.5); Hypochromasia Marked; MCH 24.1 pg (25.0-35.0); MCHC 28.3 g/dL (31.0-37.0); Mean Platelet Volume 7.2; Platelet Count 151 k/uL (150-450); RBC 3.64 m/uL (4.30-5.90); RDW 17.1 % (11.5-15.5); WBC 7.4 k/uL (3.8-10.6)
[2019-11-24 09:31] LABS: African American GFR (CKD) >90 (>60 ml/min/1.73 sqM); Blood Urea Nitrogen 27 mg/dL (9-20); Calcium 8.6 mg/dL (8.4-10.2); Chloride 98 mmol/L (98-107); Glucose 149 mg/dL (74-99); Non-African American GFR(CKD) >90 (>60 ml/min/1.73 sqM); Potassium 4.7 mmol/L (3.5-5.1); Sodium 143 mmol/L (137-145)
[2019-11-24] MEDS: IPRATROPIUM-ALBUTEROL 3 ML NEB INHALATION SCH ×4 (09:33→19:49)
[2019-11-24 09:38] LABS: Anion Gap 3 mmol/L
[2019-11-24 09:43] LABS: Carbon Dioxide 42 mmol/L (22-30)
--- NOTE | 2019-11-24 11:04 | XR ---
EXAMINATION TYPE: XR chest 1V portable DATE OF EXAM: 11/24/2019 CLINICAL HISTORY: CHF TECHNIQUE: Portable frontal view of the chest obtained COMPARISON: 11/22/2019 chest radiograph FINDINGS: Cardiomegaly. Mild pulmonary basilar congestion redemonstrated. Redemonstrated blunting of the bilateral costophrenic angles. No pneumothorax. IMPRESSION: Cardiomegaly, pulmonary vascular congestion, and small bilateral pleural effusions not si gnificantly changed versus 11/22/2019.
[2019-11-24 11:20] LABS: Glucose,Whole Blood 167 mg/dL (75-99)
[2019-11-24] MEDS: SYMBICORT 80-4.5 MCG INHALER INHALATION SCH ×2 (11:35→19:49)
--- NOTE | 2019-11-24 11:36 | P.PN ---
Subjective Progress Note Date: 11/24/19 Principal diagnosis: Acute exacerbation of COPD 79-year-old male patient of Dr. Abraham, with history of COPD, with baseline FEV1 of 35% predicted, coronary artery disease, hyperthyroidism, chronic atrial fibrillation on is a relative, chronic back pain, chronic and ongoing history of smoking, chronic right foot/right ankle ulcer being followed at the [facility], patient follows with Dr. Linares in the pulmonary clinic, and was seen in the office on 11/19/[address] Jim in follow-up for his COPD. Patient was experiencing shortness of breath, cough, wheezing, he was already on a prednisone taper prescribed by his primary care physician and did not see much improvement. Patient has a chronic smoker, and unfortunate continues to smoke about 4-5 cigarettes per day. He denies any fever, chills, no hemoptysis or chest pain. Patient was very short of breath with any activity. He has had no cold with 19 exposure. IM Depo-Medrol 80 mg was administered in the office, doxycycline was given to the patient for a total course of 10 days at 100 mg twice daily. His maintenance inhalers include Advair Diskus, and Spiriva, patient is also on DuoNeb nebulized treatments and Ventolin HFA rescue inhaler. On 11/22/2019 patient came into the emergency department for evaluation of progressive difficulty in breathing, intermittent chest pain on and off, denied radiation of the chest pain to anywhere, no diaphoresis, no nausea or vomiting, no lightheadedness or dizziness. Patient was coughing and bringing up brown colored sputum. Chest x-ray showed cardiomegaly with small pleural effusions, pulmonary vascularity increased likely related to some mild heart failure. EKG showed A. fib with a controlled rate, and right bundle branch block pattern. White blood cell count was 6.3, hemoglobin is 8.8, CO2 is 37, there is the electrolytes are within normal limits, BUN is 23 creatinine 0.55, troponins were less than 0.012, and 0.013. ProBNP was elevated at 2070. Patient was started on IV steroids, 60 mg every 6 hours, DuoNeb, Symbicort, he is on his maintenance dose of oral Lasix 40 mg daily, and IV Lasix was given in the emergency department. He is still dyspneic, but feeling better, better air entry noted bilaterally on today's exam, no complaints of chest pain this morning The patient is seen today 11/24/2019 in follow-up on the regular medical floor. He is awake and alert in no acute distress. He is up ambulating in the room with his walker. He has some dyspnea on exertion. He is maintaining O2 saturations in the 90s on 3 L/m per nasal cannula. He is afebrile. Hemodynamically stable. White count 7.4. Hemoglobin 8.8. Sodium 143. Potassium 4.7. Bicarb 42. Creatinine 0.62. He remains on DuoNeb inhalations, Symbicort, IV Solu-Medrol, IV diuretics, antibiotics in the form of doxycycline. Anticoagulated with Xarelto. Objective - Vital Signs Vital signs: Vital Signs Temp 98.3 F 11/24/19 03:57 Pulse 72 11/24/19 09:41 Resp 16 11/24/19 08:00 BP 119/74 11/24/19 03:57 Pulse Ox 97 11/24/19 09:33 Intake & Output 11/23/19 11/24/19 11/24/19 18:59 06:59 18:59 Intake Total 880 Balance 880 Weight 79.832 kg Intake: Oral 880 Other: Voiding Method Urinal Urinal Urinal Diaper Diaper Diaper Incontinent Incontinent Incontinent # Voids 2 3 - Exam GENERAL EXAM: Alert, very pleasant, 79-year-old male patient, currently on 3 L of oxygen with pulse ox of 97%. Dyspneic with conversation,but no apparent distress. HEAD: Normocephalic/atraumatic. EYES: Normal reaction of pupils, equal size. Conjunctiva pink, sclera white. NOSE: Clear with pink turbinates. THROAT: No erythema or exudates. NECK: No masses, no JVD, no thyroid enlargement, no adenopathy. CHEST: No chest wall deformity. Symmetrical expansion. LUNGS: Diminished air entry bilaterally with end expiratory wheeze. Diminished CVS: Irregular rate and rhythm, normal S1 and S2, no gallops, no murmurs, no rubs ABDOMEN: Soft, nontender. No hepatosplenomegaly, normal bowel sounds, no guarding or rigidity. EXTREMITIES: No clubbing, 1+ ankle and pedal edema, trace pretibial edema edema, no cyanosis, 2+ pulses and upper and lower extremities. Ulcerated wound on the right anckle MUSCULOSKELETAL: Muscle strength and tone normal. SPINE: No scoliosis or deformity SKIN: No rashes CENTRAL NERVOUS SYSTEM: No focal deficits, tone is normal in all 4 extremities. PSYCHIATRIC: Alert and oriented -3. Appropriate affect. Intact judgment and insight. - Labs CBC & Chem 7: 11/24/19 08:02 11/24/19 08:02 Labs: Abnormal Lab Results - Last 24 Hours (Table) 11/23/19 11/23/19 11/23/19 Range/Units 12:00 13:00 16:58 RBC (4.30-5.90) m/uL Hgb (13.0-17.5) gm/dL Hct (39.0-53.0) % MCH (25.0-35.0) pg MCHC (31.0-37.0) g/dL RDW (11.5-15.5) % Carbon Dioxide (22-30) mmol/L BUN (9-20) mg/dL Creatinine (0.66-1.25) mg/dL Glucose (74-99) mg/dL POC Glucose (mg/dL) 136 H 168 H (75-99) mg/dL Hemoglobin A1c 6.4 H (4.0-6.0) % 11/23/19 11/24/19 11/24/19 Range/Units 19:53 06:10 08:02 RBC 3.64 L (4.30-5.90) m/uL Hgb 8.8 L (13.0-17.5) gm/dL Hct 31.0 L (39.0-53.0) % MCH 24.1 L (25.0-35.0) pg MCHC 28.3 L (31.0-37.0) g/dL RDW 17.1 H (11.5-15.5) % Carbon Dioxide (22-30) mmol/L BUN (9-20) mg/dL Creatinine (0.66-1.25) mg/dL Glucose (74-99) mg/dL POC Glucose (mg/dL) 165 H 186 H (75-99) mg/dL Hemoglobin A1c (4.0-6.0) % 11/24/19 11/24/19 Range/Units 08:02 11:15 RBC (4.30-5.90) m/uL Hgb (13.0-17.5) gm/dL Hct (39.0-53.0) % MCH (25.0-35.0) pg MCHC (31.0-37.0) g/dL RDW (11.5-15.5) % Carbon Dioxide 42 H* (22-30) mmol/L BUN 27 H (9-20) mg/dL Creatinine 0.62 L (0.66-1.25) mg/dL Glucose 149 H (74-99) mg/dL POC Glucose (mg/dL) 167 H (75-99) mg/dL Hemoglobin A1c (4.0-6.0) % Assessment and Plan Assessment: #1. Acute on chronic hypoxic respiratory failure related to acute exacerbation of COPD, and acute exacerbation of CHF with previously documented diastolic dysfunction #2. Advanced stage III COPD, with chronic hypoxic respiratory failure at 2 L/m #3. Failed outpatient treatment for acute exacerbation of COPD, and tracheobronchitis #4. Chronic A. fib, on Xarelto, with controlled rate #5. Hypertension #6. History of myocardial infarction #7. History of chronic wound on the right ankle, follows at the wound care center, Doppler negative for DVT #8. History of MRSA infection in the ankle wound #9. History of coronary artery disease with previous bypass grafting #10. History of osteoarthritis #11. Chronic back pain #12. History of GERD/reflux #13. Multiple orthopedic surgeries, including right shoulder rotator cuff, bilateral hip replacement, carpal tunnel surgery on the right #14. Chronic and ongoing history of smoking Plan: The patient was seen and evaluated by Dr. Funes Chest x-ray and labs reviewed Continue current treatment plan Increase his activity as tolerated We'll continue to follow
[2019-11-24 14:15] VITALS: BMI 25.9
--- NOTE | 2019-11-24 14:20 | P.PN ---
Subjective HISTORY OF PRESENTING ILLNESS This is a pleasant 79-year-old male past medical history significant for coronary artery disease status post two-vessel bypass grafting with a QUEEN to LAD and SVG to diet, chronic diastolic heart failure, chronic persistent atrial fibrillation, dyslipidemia, hypertension, COPD and chronic nicotine dependence. He follows in the office with Dr. Landeros. He is seen and examined sitting up into the bed with his daughter at the bedside. He states he has been out working with physical therapy ambulating in the halls and his breathing is stable. He has no further complaints of significant exertional dyspnea. He states this morning he did wake up feeling a tightness across his chest that did improve after he took his inhaler. He states this happens at times in the morning. He denies exertional chest discomfort, shortness of breath, palpitation or dizziness. Blood pressure 93/59 heart rate 81 afebrile maintaining oxygen saturation on nasal cannula. Right lower extremity Doppler negative for DVT. Arterial Doppler pending. Repeat echocardiogram reveals preserved LV systolic function with ejection fraction 55-60%, mild MR, mild TR and pulmonary hypertension with RVSP of 56 mmHg. Laboratory data reviewed, WBC 7.4, hemoglobin 8.8, platelets 151, sodium 143, potassium 4.7, creatinine 0.62. Chest xray this morning reveals small pleural effusions and pulmonary congestion no change from previous. PHYSICAL EXAMINATION CONSTITUTIONAL: No apparent distress. HEENT: Head is normocephalic. Pupils are equal, round. Sclerae anicteric. Mucous membranes of the mouth are moist. No JVD. No carotid bruit. CHEST EXAMINATION: Lungs are clear to auscultation. No chest wall tenderness is noted on palpation or with deep breathing. Diminished bilaterally. HEART EXAMINATION: Regular rate and rhythm. S1, S2 heard. No murmurs, gallops or rub. EXTREMITIES: 1+ peripheral pulses, right lower extremity 2+ pitting edema with ulceration noted on the medial ankle with dressing in place, no edema to the left and no calf tenderness. ASSESSMENT Critical limb ischemia Non healing right lower extremity ulceration Chest pain, atypical for angina. Relieved with use of inhalers. Acute exacerbation of COPD Acute on chronic diastolic heart failure, mild Coronary artery disease status post bypass grafting Chronic persistent atrial fibrillation on long-term anticoagulation Dyslipidemia Hypertension Chronic nicotine dependence PLAN Breathing is stable and improving. Arterial doppler is pending. Depending on results further decision will be made regarding revascularization with Dr. Landeros. This can be done as an outpatient once his COPD exacerbation is stabilized. Nurse Practitioner note has been reviewed, I agree with a documented findings and plan of care. Patient was seen and examined. Objective - Vital Signs Vital signs: Vital Signs Temp 97.6 F 11/24/19 12:01 Pulse 81 11/24/19 12:01 Resp 18 11/24/19 12:01 BP 93/59 11/24/19 12:01 Pulse Ox 98 11/24/19 12:01 Intake & Output 11/23/19 11/24/19 11/24/19 18:59 06:59 18:59 Intake Total 880 Balance 880 Weight 79.832 kg Intake: Oral 880 Other: Voiding Method Urinal Urinal Urinal Diaper Diaper Diaper Incontinent Incontinent Incontinent # Voids 2 3 - Labs CBC & Chem 7: 11/24/19 08:02 11/24/19 08:02 Labs: Abnormal Lab Results - Last 24 Hours (Table) 11/23/19 11/23/19 11/23/19 Range/Units 12:00 16:58 19:53 RBC (4.30-5.90) m/uL Hgb (13.0-17.5) gm/dL Hct (39.0-53.0) % MCH (25.0-35.0) pg MCHC (31.0-37.0) g/dL RDW (11.5-15.5) % Carbon Dioxide (22-30) mmol/L BUN (9-20) mg/dL Creatinine (0.66-1.25) mg/dL Glucose (74-99) mg/dL POC Glucose (mg/dL) 168 H 165 H (75-99) mg/dL Hemoglobin A1c 6.4 H (4.0-6.0) % 11/24/19 11/24/19 11/24/19 Range/Units 06:10 08:02 08:02 RBC 3.64 L (4.30-5.90) m/uL Hgb 8.8 L (13.0-17.5) gm/dL Hct 31.0 L (39.0-53.0) % MCH 24.1 L (25.0-35.0) pg MCHC 28.3 L (31.0-37.0) g/dL RDW 17.1 H (11.5-15.5) % Carbon Dioxide 42 H* (22-30) mmol/L BUN 27 H (9-20) mg/dL Creatinine 0.62 L (0.66-1.25) mg/dL Glucose 149 H (74-99) mg/dL POC Glucose (mg/dL) 186 H (75-99) mg/dL Hemoglobin A1c (4.0-6.0) % 11/24/19 Range/Units 11:15 RBC (4.30-5.90) m/uL Hgb (13.0-17.5) gm/dL Hct (39.0-53.0) % MCH (25.0-35.0) pg MCHC (31.0-37.0) g/dL RDW (11.5-15.5) % Carbon Dioxide (22-30) mmol/L BUN (9-20) mg/dL Creatinine (0.66-1.25) mg/dL Glucose (74-99) mg/dL POC Glucose (mg/dL) 167 H (75-99) mg/dL Hemoglobin A1c (4.0-6.0) %
--- NOTE | 2019-11-24 15:11 | P.ARTDOP ---
Arterial Doppler LOWER EXTREMITY ARTERIAL DOPPLER: DATE OF SERVICE: 11/23/2019 Reason for study: Right ankle ulcer. Doppler waveforms: Multiphasic bilaterally throughout. Pulse volume recording: []. Pressure gradients: None. Ankle-brachial indices: Greater than 1 bilaterally. Toe brachial indices: 0.5 to on the right, 0.40 on the left Impression: Normal study proximally. Mild decrease in toe pressures probably related to vasoconstriction or less likely very distal disease. Clinical correlation recommended..
--- NOTE | 2019-11-24 16:24 | US ---
EXAMINATION TYPE: US carotid duplex BILAT DATE OF EXAM: 11/24/2019 COMPARISON: NONE CLINICAL HISTORY: LEFT frontal stroke. Falls/ possible stroke EXAM MEASUREMENTS: RIGHT: Peak Systolic Velocity (PSV) cm/sec ----- Right CCA: 85.3 ----- Right ICA: 60.2 ----- Right ECA: 131.5 ICA/CCA ratio: 0.7 RIGHT: End Diastole cm/sec ----- Right CCA: 16.0 ----- Right ICA: 14.0 ----- Right ECA: 6.0 LEFT: Peak Systolic Velocity (PSV) cm/sec ----- Left CCA: 96.5 ----- Left ICA: 118.9 ----- Left ECA: 110.8 ICA/CCA ratio: 1.2 LEFT: End Diastole cm/sec ----- Left CCA: 18.9 ----- Left ICA: 22.0 ----- Left ECA: 15.0 VERTEBRALS (direction of flow): Right Vertebral: Antegrade Left Vertebral: Antegrade Rhythm: Arrhythmia, patient has a-fib Scattered atherosclerotic plaque bilaterally. No significant velocity elevations bilaterally. Incidentally noted, incompletely evaluated enlarged heterogenous thyroid gland. IMPRESSION: 1. No hemodynamically significant stenosis bilaterally. Any stenosis that may be present is less than 50%. 2. Enlarged heterogenous thyroid gland incompletely evaluated. Recommend dedicated thyroid ultrasound . Criteria for Assigning % of Stenosis / Diameter reduction (Estimation based on the indirect measurements of the internal carotid artery velocities (ICA PSV). 1. Normal (no stenosis)=ICA PSV < 125 cm/s: ratio < 2.0: ICA EDV<40 cm/s. 2. Less than 50% stenosis=ICA PSV < 125 cm/s: ratio < 2.0: ICA EDV<40 cm/s. 3. 50 to 69% stenosis=ICA PSV of 125 to 230 cm/s: ration 2.0 ? 4.0: ICA EDV 40-100 cm/s. 4. Greater than 70% stenosis to near occlusion= ICA PSV > 230 cm/s: ratio > 4.0: ICA EDV > 100 cm/s. 5. Near occlusion= ICA PSV velocities may be low or undetectable: variable ratio and ICA EDV. 6. Total occlusion=unable to detect flow.
--- NOTE | 2019-11-24 16:27 | P.PN ---
Subjective Progress Note Date: 11/24/19 This is an 79-year-old gentleman with past medical history for CAD, stenting, CABG, CHF, atrial fibrillation, hypertension, ongoing nicotine dependence, COPD, recurrent nonhealing ulcer right medial ankle previously treated in the wound care center, recently evaluated by Dr. Landeros, and multiple other medical issues, presented to the ER with worsening shortness of breath accompanied by productive cough, intermittent chest pain. Currently denies chest pain, palpitations. Denies fever or chills. Denies nausea vomiting or diarrhea. No diaphoresis. Denies lightheadedness dizziness or focal deficits. Reports over the last few weeks he did sustain a few falls. Chest x-ray reported mild CHF, small pleural effusions with increased pulmonary vascularity compared to prior. EKG reporting right bundle branch block, atrial fibrillation, controlled ventricular rate. Troponins less than 0.012, and 0.013. ProBNP was elevated at 2070. Doppler ultrasound negative for acute DVT in the right lower extremity. Patient also reported bruises on coccyx and forehead secondary to falls sustained in the last 3 weeks, secondary to gait dysfunction. Denies syncope. 11/24/19 maintained on nebulized bronchodilators, IV steroids, IV diuretics, doxycycline, maintaining O2 sats in the 90s on 3 L nasal cannula. Bicarb 42. Chest x-ray reporting no change. Arterial Doppler pending. Echo reported preserved LV function, EF 55-60%, pulmonary hypertension. Reports chest heaviness midsternal to left chest fluctuates, improves after his inhaler/breathing treatments. Denies palpitations. Denies lightheadedness, denies dizziness. Brain CT reported cerebral atrophy, old left frontal infarct is a change compared to old exam, progression of the atrophy compared to prior exam. There is left-sided chronic subdural hygroma that measures up to 7 mm in thickness which is a change compared to prior exam. Neurology consulted. Objective - Vital Signs Vital signs: Vital Signs Temp 97.6 F 11/24/19 12:01 Pulse 80 11/24/19 15:07 Resp 18 11/24/19 14:41 BP 93/59 11/24/19 12:01 Pulse Ox 98 11/24/19 12:01 Intake & Output 11/23/19 11/24/19 11/24/19 18:59 06:59 18:59 Intake Total 880 Balance 880 Weight 79.832 kg 79.832 kg Intake: Oral 880 Other: Voiding Method Urinal Urinal Urinal Diaper Diaper Diaper Incontinent Incontinent Incontinent # Voids 2 3 - Exam PHYSICAL EXAM: VITAL SIGNS: As above GENERAL: Sitting up in bed, no acute distress HEENT: Conjunctivae normal. eyes normal. NECK: No JVD. No thyroid enlargement. No LNs CARDIOVASCULAR: S1, S2 regular.. No murmur RESPIRATION: Breath sounds diminished in the bases. No rhonchi.fine bibasilar crackles right greater than left. ABDOMEN: Soft, nontender . No guarding. no masses palpable. No ascites, No hepatosplenomegaly.Bowel sounds heard. LEGS: Positive edema right lower extremity with recurrent medial ankle ulceration, nontender, faint diminished pulses, cool to touch. Left lower extremity, no edema, positive pulses, no calf tenderness PSYCHIATRY: Alert and oriented X3, mood and affect normal. NERVOUS SYSTEM: Cranial N 2-12 grossly normal. Moves all 4 limbs. Diffuse wea kness No focal deficits. Strength and sensation grossly intact.. Skin: Warm and dry, no rash Lymphatic system. No LN neck axilla. - Labs CBC & Chem 7: 11/24/19 08:02 11/24/19 08:02 Labs: Abnormal Lab Results - Last 24 Hours (Table) 11/23/19 11/23/19 11/23/19 Range/Units 12:00 16:58 19:53 RBC (4.30-5.90) m/uL Hgb (13.0-17.5) gm/dL Hct (39.0-53.0) % MCH (25.0-35.0) pg MCHC (31.0-37.0) g/dL RDW (11.5-15.5) % Carbon Dioxide (22-30) mmol/L BUN (9-20) mg/dL Creatinine (0.66-1.25) mg/dL Glucose (74-99) mg/dL POC Glucose (mg/dL) 168 H 165 H (75-99) mg/dL Hemoglobin A1c 6.4 H (4.0-6.0) % 11/24/19 11/24/19 11/24/19 Range/Units 06:10 08:02 08:02 RBC 3.64 L (4.30-5.90) m/uL Hgb 8.8 L (13.0-17.5) gm/dL Hct 31.0 L (39.0-53.0) % MCH 24.1 L (25.0-35.0) pg MCHC 28.3 L (31.0-37.0) g/dL RDW 17.1 H (11.5-15.5) % Carbon Dioxide 42 H* (22-30) mmol/L BUN 27 H (9-20) mg/dL Creatinine 0.62 L (0.66-1.25) mg/dL Glucose 149 H (74-99) mg/dL POC Glucose (mg/dL) 186 H (75-99) mg/dL Hemoglobin A1c (4.0-6.0) % 11/24/19 Range/Units 11:15 RBC (4.30-5.90) m/uL Hgb (13.0-17.5) gm/dL Hct (39.0-53.0) % MCH (25.0-35.0) pg MCHC (31.0-37.0) g/dL RDW (11.5-15.5) % Carbon Dioxide (22-30) mmol/L BUN (9-20) mg/dL Creatinine (0.66-1.25) mg/dL Glucose (74-99) mg/dL POC Glucose (mg/dL) 167 H (75-99) mg/dL Hemoglobin A1c (4.0-6.0) % Assessment and Plan Assessment: Acute on chronic hypoxic respiratory failure secondary to Acute COPD exacerbation, acute on chronic diastolic CHF Recurrent Right medial ankle nonhealing ulcer, suspect arterial occlusion, present on admission Recent falls secondary to the above Chronic persistent atrial fibrillation Gastroesophageal reflux disease CAD, history of UT, CABG Hypertension Osteoarthritis Borderline diabetes, hemoglobin A1c pending Ongoing nicotine dependence Chronic back pain Plan: Continue on current medication regime ,monitoring and symptomatic treatment. Abnormal brain CT, neurology consulted. Maintain nebulized bronchodilators, IV steroids, IV diuretics. Arterial Doppler pending . The impression and plan of care has been dictated as directed. : I performed a history and examination of this patient, discussed the same with the dictator. I agree with the dictator's note ,documented as a scribe. Any additional findings or plans will be noted.
--- NOTE | 2019-11-24 16:50 | P.CNNES ---
History of Present Illness Consult date: 11/24/19 Requesting physician: Mei Ambrocio Reason for Consult: New CT head findings (new old left frontal infarct) History of Present Illness: This is an 79-year-old right-handed gentleman with a medical history of hypertension, chronic atrial fibrillation, coronary artery disease status post CABG myocardial infarction, COPD, tobacco use who presented to the emergency department on 11/22/2019 for difficulty breathing for the last 1 week and intermittent chest pain. Per the patient daughter as well as his were at bedside that they stated that the patient had a fall about close to 5 years ago as well and the last 2 weeks he had 2 falls. The fall that he had in the past 2 weeks 1 of him he was sitting in a chair and she slept and then he will he fell forward the. He did not have any urinary bowel incontinence no tongue bite no jerk in the episode that. Another episode is the he had a mechanical fall within this 2 weeks again no seizure-like activity the or loss of consciousness. The fall about 5 years ago he fell while in the stairway and that the patient stated that he slept the. The patient fell forward. There are not sure if the patient had a CT of the head but upon reviewing medical records he did have CT of the head. Patient denies of any facial weakness slurring the speech any visual disturbance any focal weakness of upper extremities he does have a chronic right lower extremity after the lower back surgery. Denies any word finding difficulties. During hospitalization and it's noted that the patient has acute on chronic COPD exacerbation. It's noted that he has a nonhealing right lower extremity ulceration as well as the limb ischemia from a right lower extremity at.. Patient had CT of the head on 11/23/2019 for altered mental status confusion and falls and it was reported as cerebral atrophy. Old left frontal infarct is that change compared to old exam (09/23/2014). There is a progression of atrophy compared to old exam. There is a left sided chronic subdural hygroma that measures up to 7 mm in thickness which is a change compared to old exam. I did review the CT of the head I also reviewed that 2015 image which the 2015 did not have left subdural and this image did but again that the subdural looks not acute or subacute looks chronic. EKG on 11/22/2019 was reported as atrial fibrillation, right bundle branch block. Ventricular rate of 87. Echocardiogram was reported as atrial fibrillation. There is moderate concentric left ventricular hypertrophy. Ejection fraction 55-60%. Apical septum left ventricle wall motion is hypokinetic. Right ventricle is moderately ad enlarged. Left atrium is severely dilated. Since being in the hospital he does not have any leukocytosis. He does have the hemoglobin on presentation of the 8.8. Baseline hemoglobin lungs 11 and higher and never got below 10 before. Per the patient as well as daughter the patient has a chronic lower back pain and had two back surgeries performed on his lower back pain more than 10 years ago (disc removed but not sure exactly). After the second back surgery he ended up using a cane then a walker he has weakness over the right lower extremity as well as a right foot drop as a result the after the surgery as well as numbness in the lower extremity more on the right lower than the left. They deny him follow up with a neurologist or having EMG activator knowledge. Review of Systems Review of system: The 12 point system was reviewed and apparent positive and negative per HPI. Past Medical History Past Medical History: Atrial Fibrillation, COPD, GERD/Reflux, Hypertension, Myocardial Infarction (MT), Musculoskeletal Disorder, Osteoarthritis (OA), Pneumonia, Thyroid Disorder Additional Past Medical History / Comment(s): left breast mass HX OF COLON BRODIE YPS. HX RIGHT BREAST MASS. O2 AT 3L NC all the time. Hx Aspiration Pneumonia R/T "FLAPPER." HX OF THYROID PROBLEM - NO TX NOW. CHRONIC BACK PAIN, JAIME LEG NT. RT FOOT/ANKLE EDEMA, WEARS TEDS. JAIME CTS borderline diabetes Last Myocardial Infarction Date:: 1987 History of Any Multi-Drug Resistant Organisms: MRSA Date of last positivie culture/infection: 1988-chest, 03/2012-01/2013 ankle sore MDRO Source:: staph after open heart; Right Ankle pressure sore Past Surgical History: Back Surgery, Coronary Bypass/CABG, Joint Replacement, Orthopedic Surgery Additional Past Surgical History / Comment(s): left carpel tunnel, CARPAL TUNNEL RIGHT x 2. CABG 1987 X2. JAIME SCOPES KNEES. Jaime Hip Replacement, Nicholas Fundoplicaton. Rt Shoulder Rotator Cuff. BACK X2. HX OF EPIDURALS FOR PAIN. esophageal dilation Past Anesthesia/Blood Transfusion Reactions: No Reported Reaction Past Psychological History: No Psychological Hx Reported Additional Psychological History / Comment(s): REFUSES RX Smoking Status: Current every day smoker Past Alcohol Use History: None Reported Additional Past Alcohol Use History / Comment(s): SMOKES 2-3 cig Daily AVG, SINCE TEENS, WAS 1 PPD IN PAST Past Drug Use History: None Reported - Past Family History Daughter(s) Family Medical History: Cancer Father History Unknown: Yes Mother Family Medical History: No Reported History Medications and Allergies Home Medications Medication Instructions Recorded Confirmed Type Metoprolol Tartrate [Lopressor] 25 mg PO BID 08/06/13 11/22/19 History Rivaroxaban [Xarelto] 20 mg PO PC-SUPPER 08/06/13 11/22/19 History Furosemide 40 mg PO DAILY 08/09/13 11/22/19 History Gabapentin 600 mg PO TID 06/24/14 11/22/19 History Fluticasone/Salmeterol [Advair 1 puff INHALATION RT-BID 08/18/14 11/22/19 History 250-50 Diskus] Tiotropium 18 Mcg/Puff [Spiriva] 1 puff INHALATION QAM 08/18/14 11/22/19 History Albuterol Nebulized [Ventolin 2.5 mg INHALATION TID 08/09/16 11/22/19 History Nebulized] oxyCODONE HCL/ACETAMINOPHEN 1 tab PO TID PRN 08/09/16 11/22/19 History [Percocet 10-325 mg] Atorvastatin [Lipitor] 40 mg PO HS 01/20/18 11/22/19 History Multivitamin [Men's Multi-Vitamin] 1 each PO DAILY 01/20/18 11/22/19 History Albuterol Sulfate [Ventolin HFA] 2 puff INHALATION RT-QID PRN 11/22/19 11/22/19 History Doxycycline Hyclate 100 mg PO BID 11/22/19 11/22/19 History Ipratropium-Albuterol Nebulize 3 ml INHALATION RT-QID 11/22/19 11/22/19 History [Duoneb 0.5 mg-3 mg/3 ml Soln] predniSONE See Taper PO DAILY 11/22/19 11/22/19 History Allergies Allergy/AdvReac Type Severity Reaction Status Date / Time No Known Allergies Allergy Verified 11/22/19 21:21 Physical Examination - Vital Signs Vital Signs: Vital Signs Temp Pulse Pulse Resp BP BP Pulse Ox 09/02/20 12:01 97.6 F 81 18 93/59 94/50 98 11/24/19 11:46 76 11/24/19 11:35 74 11/24/19 09:41 72 11/24/19 09:33 70 97 11/24/19 08:00 97 16 11/24/19 03:57 98.3 F 97 16 119/74 92 L 11/23/19 21:06 97.7 F 110 H 18 110/59 99 11/23/19 19:03 83 11/23/19 18:53 83 11/23/19 16:00 69 16 11/23/19 15:48 95 11/23/19 15:40 104 H Intake and Output 11/23/19 11/24/19 11/24/19 22:59 06:59 14:59 Intake Total 290 590 Balance 290 590 Intake: Oral 290 590 Other: Voiding Method Urinal Urinal Diaper Diaper Incontinent Incontinent # Voids 3 Weight 79.832 kg 79.832 kg GENERAL: The patient is lying in bed and is not in acute distress. HENT: Blackish/purplish discoloration on center of forehead from a fall 2 weeks ago. Otherwise Normocephalic and atraumatic. CHEST: The heart rate is irregular rate rhythm. No murmurs to auscultation. LUNG: Clear to auscultation bilaterally no wheezing noted throughout. Not lab ored breathing. ABDOMEN/GI: Bowel sounds present in all 4 quadrants. No tenderness to palpation throughout. NEUROLOGICAL: Higher mental function: The patient is awake, alert, oriented to self, place and time. Patient is following commands. No aphasia and no neglect. Cranial nerves: The pupils are round, equal and reactive to light and accommodation. Visual marquez are full to confrontation throughout. Extraocular movement is intact no nystagmus is noted. Facial sensation is normal to touch throughout. The facial strength is normal throughout. Hearing is normal bilaterally to hand rub. Tongue is midline and moved [id number] without any difficulty. No dysarthria is noted. Shoulder shrug is normal bilaterally. Motor: Gait is defered. Strength: Limitation in assessing the right lower extremity since right leg was wrapped from just distal to knee all way to mid- foot area. Strength of the right lower extremity proximally is 5/5 while right ankle: plantar flexion 2/5 while dorsiflexion and eversion 1-2/5 while inversion 3/5. Otherwise 5 over 5 throughout bilateral upper and left lower extremity. Cerebellum: Normal finger to nose bilaterally. Sensation: Sensation is normal to touch in bilateral upper extremities but decreased from distal right knee compared to left lower extremity. Reflexes (right/left): 2+ bilateral upper extremities while bilateral patellar are 1-2+ and left ankle is 1+. Right ankle not assessed because of condition. Plantars is downgoing on the left but unable to assess right. Results Hemoglobin A1c is 6.4 and that was done on this admission. AST of 59. ALTs of 37. PT of 12.1, INR of 1.2, PTT of 26.0 - Laboratory Findings CBC and BMP: 11/24/19 08:02 11/24/19 08:02 Abnormal Lab Findings: Abnormal Labs 11/22/19 11/22/19 11/22/19 17:56 17:56 17:56 RBC 3.61 L Hgb 8.8 L Hct 30.4 L MCH 24.4 L MCHC 29.0 L RDW 17.1 H Lymphocytes # 0.5 L PT 12.1 H INR 1.2 H Carbon Dioxide 37 H BUN 23 H Creatinine 0.55 L Glucose 156 H POC Glucose (mg/dL) Hemoglobin A1c Total Protein 5.7 L Albumin 3.3 L 11/22/19 11/23/19 11/23/19 22:36 02:00 07:36 RBC 3.35 L Hgb 8.2 L Hct 28.3 L MCH 24.3 L MCHC 28.8 L RDW 17.0 H Lymphocytes # 0.4 L PT INR Carbon Dioxide BUN Creatinine Glucose POC Glucose (mg/dL) 239 H 256 H Hemoglobin A1c Total Protein Albumin 11/23/19 11/23/19 11/23/19 12:00 13:00 16:58 RBC Hgb Hct MCH MCHC RDW Lymphocytes # PT INR Carbon Dioxide BUN Creatinine Glucose POC Glucose (mg/dL) 136 H 168 H Hemoglobin A1c 6.4 H Total Protein Albumin 11/23/19 11/24/19 11/24/19 19:53 06:10 08:02 RBC 3.64 L Hgb 8.8 L Hct 31.0 L MCH 24.1 L MCHC 28.3 L RDW 17.1 H Lymphocytes # PT INR Carbon Dioxide BUN Creatinine Glucose POC Glucose (mg/dL) 165 H 186 H Hemoglobin A1c Total Protein Albumin 11/24/19 11/24/19 08:02 11:15 RBC Hgb Hct MCH MCHC RDW Lymphocytes # PT INR Carbon Dioxide 42 H* BUN 27 H Creatinine 0.62 L Glucose 149 H POC Glucose (mg/dL) 167 H Hemoglobin A1c Total Protein Albumin Assessment and Plan Assessment: 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 Chronic left frontal stroke. I believe as of a fall patient had left subdural hematoma as well as had the left frontal stroke possibly Chronic right foot drop from chronic lower back surgery Acute exacerbation of Chronic obstructive pulmonary disease Nonhealing right lower extremity ulceration and concern for limb ischemia Anemia Atrial fibrillation Tobacco use History of coronary artery disease status post CABG Plan: Regarding the patient's new changes as seen on the current CT of the head that was not seen on 2014, from the presentation seems that the patient was having falls and as a result suffered left subdural hematoma the left upper dural hematoma his chronic. As well as the left frontal ischemia seen which was not seen the and 2014 and likely is a result of a fall. For the atrial fibrillation the patient is on Xarelto 20 mg daily. Because of the patient falls I don't recommend adding get antiplatelet in addition with the Xarelto for the secondary stroke prophylaxis I believe Xarelto is sufficient enough. Maybe consider placing the patient on Ruthann course as since there is less risk of 5 major the lead such as intracranial bleed compared to other oral anticoagulant. We'll defer the management to the primary as well as the cardiology team. Continue Lipitor 40 mg daily. I will order a carotid duplex as well as lipid panel. Regarding the team concern for patient confusion I ordered ammonia level vitamin B12, folate, TSH. Per family he is doing well but was briefly confused after the fall. He is on gabapentin 600 milligrams 3 times a day as home medication, for his neuropathy (home med). Cardiology is on board Regarding the management for concern of right lower at ischemia and anemia we'll defer the management to the primary team The patient was counseled on tobacco cessation. The plan was discussed with the patient as well as that his family members.. Upon discharge the patient needs to follow up with a neurologist. I notified the patient the as well as daughter that the patient the need said to follow-up regarding his left subdural hematoma/left frontal ischemia as well as a the chronic lower back pain with right foot drop with numbness of lower extremities. I notified them that patient the to get EMG with nerve conduction as an outpatient regarding his right foot drop but will defer that management to the outpatient neurologist. Thank you for the consult. Umu Lyman. Neuro-hospitalist Time with Patient: Greater than 30
[2019-11-24 16:55] LABS: Glucose,Whole Blood 222 mg/dL (75-99)
[2019-11-24] MEDS: RIVAROXABAN 20 MG TAB PO SCH (17:37)
[2019-11-24 19:14] LABS: T4, Free (Free Thyroxine) 1.32 ng/dL (0.78-2.19)
[2019-11-24 19:59] LABS: Glucose,Whole Blood 214 mg/dL (75-99)
[2019-11-24] MEDS: ATORVASTATIN 40 MG TAB PO SCH (21:34)
[2019-11-25] MEDS: methylPREDNISolone SOD SUCCI 125 MG/2 ML VIAL IV SCH ×2 (05:08→11:39)
[2019-11-25 07:16] LABS: Glucose,Whole Blood 161 mg/dL (75-99)
[2019-11-25] MEDS: IPRATROPIUM-ALBUTEROL 3 ML NEB INHALATION SCH ×2 (07:16→11:22)
[2019-11-25] MEDS: SYMBICORT 80-4.5 MCG INHALER INHALATION SCH (07:16)
[2019-11-25 08:09] LABS: Anisocytosis Slight; Basophils % (A) 0 %; Eosinophils % (A) 0 %; HCT 29.7 % (39.0-53.0); HGB 8.5 gm/dL (13.0-17.5); Hypochromasia Marked; Lymphocytes # (A) 0.3 k/uL (1.0-4.8); Lymphocytes % (A) 4 %; MCH 24.3 pg (25.0-35.0); MCHC 28.8 g/dL (31.0-37.0); MCV 84.3 fL (80.0-100.0); Mean Platelet Volume 7.2; Monocytes # (A) 0.5 k/uL (0-1.0); Monocytes % (A) 7 %; Neutrophils % (A) 88 %; Platelet Count 157 k/uL (150-450); RBC 3.52 m/uL (4.30-5.90); RDW 16.9 % (11.5-15.5); WBC 7.9 k/uL (3.8-10.6)
[2019-11-25 08:15] LABS: African American GFR (CKD) >90 (>60 ml/min/1.73 sqM); Anion Gap 5 mmol/L; Blood Urea Nitrogen 36 mg/dL (9-20); Calcium 8.1 mg/dL (8.4-10.2); Carbon Dioxide 40 mmol/L (22-30); Chloride 95 mmol/L (98-107); Glucose 134 mg/dL (74-99); Non-African American GFR(CKD) 89 (>60 ml/min/1.73 sqM); Potassium 3.9 mmol/L (3.5-5.1); Sodium 140 mmol/L (137-145)
[2019-11-25] MEDS: GABAPENTIN 300 MG CAP PO SCH ×2 (08:31→15:06)
[2019-11-25] MEDS: METOPROLOL TARTRATE 25 MG TAB PO SCH (08:31)
[2019-11-25] MEDS: INSULIN ASPART (NovoLOG) 100 UNIT/ML VIAL SQ SCH ×2 (08:32→12:50)
[2019-11-25] MEDS: DOXYCYCLINE 100 MG CAP PO SCH (08:32)
[2019-11-25] MEDS: FUROSEMIDE 10 MG/ML 4 ML VIAL IV SCH (08:32)
[2019-11-25] MEDS: DOCUSATE 100 MG CAP PO SCH (08:32)
[2019-11-25] MEDS: oxyCODONE-APAP 10-325MG 1 EACH TAB PO PRN (08:42)
--- NOTE | 2019-11-25 11:14 | P.PN ---
Subjective Progress Note Date: 11/25/19 Principal diagnosis: nonhealing lower extremity wound, PAD HISTORY OF PRESENTING ILLNESS This is a pleasant 79-year-old male past medical history significant for coronary artery disease status post two-vessel bypass grafting with a QUEEN to LAD and SVG to diet, chronic diastolic heart failure, chronic persistent atrial fibrillation, dyslipidemia, hypertension, COPD and chronic nicotine dependence. He follows in the office with Dr. Landeros. He is seen and examined sitting up into the bed with his daughter at the bedside. He states he has been out working with physical therapy ambulating in the halls and his breathing is stable. He has no further complaints of significant exertional dyspnea. He states this morning he did wake up feeling a tightness across his chest that did improve after he took his inhaler. He states this happens at times in the morning. He denies exertional chest discomfort, shortness of breath, palpitation or dizziness. Blood pressure 93/59 heart rate 81 afebrile maintaining oxygen saturation on nasal cannula. Right lower extremity Doppler negative for DVT. Arterial Doppler pending. Repeat echocardiogram reveals preserved LV systolic function with ejection fraction 55-60%, mild MR, mild TR and pulmonary hypertension with RVSP of 56 mmHg. Laboratory data reviewed, WBC 7.4, hemoglobin 8.8, platelets 151, sodium 143, potassium 4.7, creatinine 0.62. Chest xray this morning reveals small pleural effusions and pulmonary congestion no change from previous. 11/25/2019 patient seen and examined. Patient admits his breathing continues to improve. He was walking the halls with physical therapy. He admits his chest tightness has improved with his inhalers. he had his arterial ultrasound performed which showed bilateral triphasic waveform below his knees to his dorsalis pedis and posterior tibial artery. There was a decrease in toe brachial index likely related to vasoconstriction however this should not affect wound healing of the ankle. PHYSICAL EXAMINATION CONSTITUTIONAL: No apparent distress. HEENT: Head is normocephalic. Pupils are equal, round. Sclerae anicteric. Mucous membranes of the mouth are moist. No JVD. No carotid bruit. CHEST EXAMINATION: Lungs are clear to auscultation. No chest wall tenderness is noted on palpation or with deep breathing. Diminished bilaterally. HEART EXAMINATION: Regular rate and rhythm. S1, S2 heard. No murmurs, gallops or rub. EXTREMITIES: 1+ peripheral pulses, right lower extremity 2+ pitting edema with ulceration noted on the medial ankle with dressing in place, no edema to the left and no calf tenderness. ASSESSMENT Non healing right lower extremity ulceration Chest pain, atypical for angina. Relieved with use of inhalers. appears related to his COPD. Do not suspect cardiac source of pressure. Acute exacerbation of COPD Acute on chronic diastolic heart failure, mild Coronary artery disease status post bypass grafting Chronic persistent atrial fibrillation on long-term anticoagulation Dyslipidemia Hypertension Chronic nicotine dependence PLAN Lower extremity arterial Doppler shows triphasic waveforms throughout with a normalankle-brachial index. There was decrease in toe brachial index however this should not affect wound healing of thelateral ankle. No further workup for peripheral arterial disease as an inpatient and patient may be followed with Dr. Landeros. Patient's atrial fibrillation has been well controlled and continue on xarelto and Lopressor for rate control. we will sign off and please call with any questions. Objective - Vital Signs Vital signs: Vital Signs Temp 98.1 F 11/25/19 04:16 Pulse 90 11/25/19 08:00 Resp 16 11/25/19 08:00 BP 109/64 11/25/19 04:16 Pulse Ox 95 11/25/19 07:16 Intake & Output 11/24/19 11/25/19 11/25/19 18:59 06:59 18:59 Weight 79.832 kg 81 kg Other: Voiding Method Urinal Urinal Urinal Diaper Diaper Diaper Incontinent Incontinent Incontinent - Labs CBC & Chem 7: 11/25/19 06:40 11/25/19 06:40 Labs: Abnormal Lab Results - Last 24 Hours (Table) 11/24/19 11/24/19 11/24/19 Range/Units 11:15 15:28 16:53 RBC (4.30-5.90) m/uL Hgb (13.0-17.5) gm/dL Hct (39.0-53.0) % MCH (25.0-35.0) pg MCHC (31.0-37.0) g/dL RDW (11.5-15.5) % Lymphocytes # (1.0-4.8) k/uL Chloride (98-107) mmol/L Carbon Dioxide (22-30) mmol/L BUN (9-20) mg/dL Glucose (74-99) mg/dL POC Glucose (mg/dL) 167 H 222 H (75-99) mg/dL Calcium (8.4-10.2) mg/dL TSH <0.015 L (0.465-4.680) mIU/L 11/24/19 11/25/19 11/25/19 Range/Units 19:57 06:40 06:40 RBC 3.52 L (4.30-5.90) m/uL Hgb 8.5 L (13.0-17.5) gm/dL Hct 29.7 L (39.0-53.0) % MCH 24.3 L (25.0-35.0) pg MCHC 28.8 L (31.0-37.0) g/dL RDW 16.9 H (11.5-15.5) % Lymphocytes # 0.3 L (1.0-4.8) k/uL Chloride 95 L (98-107) mmol/L Carbon Dioxide 40 H (22-30) mmol/L BUN 36 H (9-20) mg/dL Glucose 134 H (74-99) mg/dL POC Glucose (mg/dL) 214 H (75-99) mg/dL Calcium 8.1 L (8.4-10.2) mg/dL TSH (0.465-4.680) mIU/L 11/25/19 Range/Units 07:14 RBC (4.30-5.90) m/uL Hgb (13.0-17.5) gm/dL Hct (39.0-53.0) % MCH (25.0-35.0) pg MCHC (31.0-37.0) g/dL RDW (11.5-15.5) % Lymphocytes # (1.0-4.8) k/uL Chloride (98-107) mmol/L Carbon Dioxide (22-30) mmol/L BUN (9-20) mg/dL Glucose (74-99) mg/dL POC Glucose (mg/dL) 161 H (75-99) mg/dL Calcium (8.4-10.2) mg/dL TSH (0.465-4.680) mIU/L
--- NOTE | 2019-11-25 11:20 | P.PN ---
Subjective Progress Note Date: 11/25/19 Principal diagnosis: Acute exacerbation of COPD 79-year-old male patient of Dr. Abraham, with history of COPD, with baseline FEV1 of 35% predicted, coronary artery disease, hyperthyroidism, chronic atrial fibrillation on is a relative, chronic back pain, chronic and ongoing history of smoking, chronic right foot/right ankle ulcer being followed at the [facility], patient follows with Dr. Linares in the pulmonary clinic, and was seen in the office on 11/19/[address] Jim in follow-up for his COPD. Patient was experiencing shortness of breath, cough, wheezing, he was already on a prednisone taper prescribed by his primary care physician and did not see much improvement. Patient has a chronic smoker, and unfortunate continues to smoke about 4-5 cigarettes per day. He denies any fever, chills, no hemoptysis or chest pain. Patient was very short of breath with any activity. He has had no cold with 19 exposure. IM Depo-Medrol 80 mg was administered in the office, doxycycline was given to the patient for a total course of 10 days at 100 mg twice daily. His maintenance inhalers include Advair Diskus, and Spiriva, patient is also on DuoNeb nebulized treatments and Ventolin HFA rescue inhaler. On 11/22/2019 patient came into the emergency department for evaluation of progressive difficulty in breathing, intermittent chest pain on and off, denied radiation of the chest pain to anywhere, no diaphoresis, no nausea or vomiting, no lightheadedness or dizziness. Patient was coughing and bringing up brown colored sputum. Chest x-ray showed cardiomegaly with small pleural effusions, pulmonary vascularity increased likely related to some mild heart failure. EKG showed A. fib with a controlled rate, and right bundle branch block pattern. White blood cell count was 6.3, hemoglobin is 8.8, CO2 is 37, there is the electrolytes are within normal limits, BUN is 23 creatinine 0.55, troponins were less than 0.012, and 0.013. ProBNP was elevated at 2070. Patient was started on IV steroids, 60 mg every 6 hours, DuoNeb, Symbicort, he is on his maintenance dose of oral Lasix 40 mg daily, and IV Lasix was given in the emergency department. He is still dyspneic, but feeling better, better air entry noted bilaterally on today's exam, no complaints of chest pain this morning The patient is seen today 11/24/2019 in follow-up on the regular medical floor. He is awake and alert in no acute distress. He is up ambulating in the room with his walker. He has some dyspnea on exertion. He is maintaining O2 saturations in the 90s on 3 L/m per nasal cannula. He is afebrile. Hemodynamically stable. White count 7.4. Hemoglobin 8.8. Sodium 143. Potassium 4.7. Bicarb 42. Creatinine 0.62. He remains on DuoNeb inhalations, Symbicort, IV Solu-Medrol, IV diuretics, antibiotics in the form of doxycycline. Anticoagulated with Xarelto. The patient is seen today 11/25/2019 in follow-up on the regular medical floor. He is currently sitting up in a chair at the bedside. Awake and alert in no acute distress. Maintaining O2 saturations in the mid 90s on 2 L/m per nasal cannula. He's been afebrile. Carotid Dopplers revealed no significant stenosis. White count 7.9. Hemoglobin 8.5. Sodium 140. Potassium 3.9. Creatinine 0.69. He remains on DuoNeb inhalations, Symbicort, IV diuretics. Antibiotics in the form of Vibramycin. Anticoagulated with Xarelto. Remains in atrial fibrillation with controlled ventricular response. Objective - Vital Signs Vital signs: Vital Signs Temp 98.1 F 11/25/19 04:16 Pulse 90 11/25/19 08:00 Resp 16 11/25/19 08:00 BP 109/64 11/25/19 04:16 Pulse Ox 95 11/25/19 07:16 Intake & Output 11/24/19 11/25/19 11/25/19 18:59 06:59 18:59 Weight 79.832 kg 81 kg Other: Voiding Method Urinal Urinal Urinal Diaper Diaper Diaper Incontinent Incontinent Incontinent - Exam GENERAL EXAM: Alert, very pleasant, 79-year-old male patient, currently on 2 L of oxygen with pulse ox of 95%. No apparent distress. HEAD: Normocephalic/atraumatic. EYES: Normal reaction of pupils, equal size. Conjunctiva pink, sclera white. NOSE: Clear with pink turbinates. THROAT: No erythema or exudates. NECK: No masses, no JVD, no thyroid enlargement, no adenopathy. CHEST: No chest wall deformity. Symmetrical expansion. LUNGS: Diminished air entry bilaterally. CVS: Irregular rate and rhythm, normal S1 and S2, no gallops, no murmurs, no rubs ABDOMEN: Soft, nontender. No hepatosplenomegaly, normal bowel sounds, no guarding or rigidity. EXTREMITIES: No clubbing, 1+ ankle and pedal edema, trace pretibial edema edema, no cyanosis, 2+ pulses and upper and lower extremities. Ulcerated wound on the right anckle MUSCULOSKELETAL: Muscle strength and tone normal. SPINE: No scoliosis or deformity SKIN: No rashes CENTRAL NERVOUS SYSTEM: No focal deficits, tone is normal in all 4 extremities. PSYCHIATRIC: Alert and oriented -3. Appropriate affect. Intact judgment and insight. - Labs CBC & Chem 7: 11/25/19 06:40 11/25/19 06:40 Labs: Abnormal Lab Results - Last 24 Hours (Table) 11/24/19 11/24/19 11/24/19 Range/Units 11:15 15:28 16:53 RBC (4.30-5.90) m/uL Hgb (13.0-17.5) gm/dL Hct (39.0-53.0) % MCH (25.0-35.0) pg MCHC (31.0-37.0) g/dL RDW (11.5-15.5) % Lymphocytes # (1.0-4.8) k/uL Chloride (98-107) mmol/L Carbon Dioxide (22-30) mmol/L BUN (9-20) mg/dL Glucose (74-99) mg/dL POC Glucose (mg/dL) 167 H 222 H (75-99) mg/dL Calcium (8.4-10.2) mg/dL TSH <0.015 L (0.465-4.680) mIU/L 11/24/19 11/25/19 11/25/19 Range/Units 19:57 06:40 06:40 RBC 3.52 L (4.30-5.90) m/uL Hgb 8.5 L (13.0-17.5) gm/dL Hct 29.7 L (39.0-53.0) % MCH 24.3 L (25.0-35.0) pg MCHC 28.8 L (31.0-37.0) g/dL RDW 16.9 H (11.5-15.5) % Lymphocytes # 0.3 L (1.0-4.8) k/uL Chloride 95 L (98-107) mmol/L Carbon Dioxide 40 H (22-30) mmol/L BUN 36 H (9-20) mg/dL Glucose 134 H (74-99) mg/dL POC Glucose (mg/dL) 214 H (75-99) mg/dL Calcium 8.1 L (8.4-10.2) mg/dL TSH (0.465-4.680) mIU/L 11/25/19 Range/Units 07:14 RBC (4.30-5.90) m/uL Hgb (13.0-17.5) gm/dL Hct (39.0-53.0) % MCH (25.0-35.0) pg MCHC (31.0-37.0) g/dL RDW (11.5-15.5) % Lymphocytes # (1.0-4.8) k/uL Chloride (98-107) mmol/L Carbon Dioxide (22-30) mmol/L BUN (9-20) mg/dL Glucose (74-99) mg/dL POC Glucose (mg/dL) 161 H (75-99) mg/dL Calcium (8.4-10.2) mg/dL TSH (0.465-4.680) mIU/L Assessment and Plan Assessment: #1. Acute on chronic hypoxic respiratory failure related to acute exacerbation of COPD, and acute exacerbation of CHF with previously documented diastolic dysfunction #2. Advanced stage III COPD, with chronic hypoxic respiratory failure at 2 L/m #3. Failed outpatient treatment for acute exacerbation of COPD, and tracheobr onchitis #4. Chronic A. fib, on Xarelto, with controlled rate #5. Hypertension #6. History of myocardial infarction #7. History of chronic wound on the right ankle, follows at the wound care c enter, Doppler negative for DVT #8. History of MRSA infection in the ankle wound #9. History of coronary artery disease with previous bypass grafting #10. History of osteoarthritis #11. Chronic back pain #12. History of GERD/reflux #13. Multiple orthopedic surgeries, including right shoulder rotator cuff, bilateral hip replacement, carpal tunnel surgery on the right #14. Chronic and ongoing history of smoking Plan: The patient was seen and evaluated by Dr. Shantel Rosales for discharge from the pulmonary standpoint Follow-up in the office in 1-2 weeks' time Continue home oxygen and medication I, the cosigning physician, performed a history & physical examination of the patient. Lungs sounds are clear, diminished. Maintaining good O2 saturations in the 90s on 2 L/m per nasal cannula. I discussed the assessment and plan of care with my nurse practitioner, Petra Rivera. I attest to the above note as dictated by her.
[2019-11-25 11:55] LABS: Glucose,Whole Blood 157 mg/dL (75-99)
[2019-11-25 12:20] VITALS: BP 100/65; PULSE 72; RESP 17; TEMP 98.2
--- NOTE | 2019-11-25 12:40 | P.DS ---
Providers Date of admission: 11/22/19 19:01 Expected date of discharge: 11/25/19 Attending physician: Adams Abraham Consults: 11/22/19 19:01 Consult Physician Routine Consulting Provider: Katty Linares Consult Reason/Comments: COPD exacerbation Do you want consulting provider notified?: Yes 11/23/19 08:32 Consult Physician Routine Consulting Provider: Tiago Landeros Consult Reason/Comments: right lower ext. arterial occlusion, arterial doppler Do you want consulting provider notified?: Yes 11/24/19 11:22 Consult Physician Routine Consulting Provider: Nura Herrera Consult Reason/Comments: abn. 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 suspect from old fall, as per neurology Chest pain, relieved with inhalers, nebulized bronchodilators, atypical for angina, cardiac etiology ruled out as per cardiology Chronic 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 Landeros, and multiple other medical issues, presented to the ER with worsening shortness of breath accompanied by productive cough, intermittent chest pain. Currently denies chest pain, palpitations. Denies fever or chills. Denies nausea vomiting or diarrhea. No diaphoresis. Denies lightheadedness dizziness or focal deficits. Reports over the last few weeks he did sustain a few falls. Chest x-ray reported mild CHF, small pleural effusions with increased pulmonary vascularity compared to prior. EKG reporting right bundle branch block, atrial fibrillation, controlled ventricular rate. Troponins less than 0.012, and 0.013. ProBNP was elevated at 2070. Doppler ultrasound negative for acute DVT in the right lower extremity. Patient also reported bruises on coccyx and forehead secondary to falls sustained in the last 3 weeks, secondary to gait dysfunction. Denies syncope. 11/24/19 maintained on nebulized bronchodilators, IV steroids, IV diuretics, doxycycline, maintaining O2 sats in the 90s on 3 L nasal cannula. Bicarb 42. Chest x-ray reporting no change. Arterial Doppler pending. Echo reported preserved LV function, EF 55-60%, pulmonary hypertension. Reports chest heaviness midsternal to left chest fluctuates, improves after his inhaler/breathing treatments. Denies palpitations. Denies lightheadedness, denies dizziness. Brain CT reported cerebral atrophy, old left frontal infarct is a change compared to old exam, progression of the atrophy compared to prior exam. There is left-sided chronic subdural hygroma that measures up to 7 mm in thickness which is a change compared to prior exam. Neurology consulted. Arterial ultrasound reporting normal study proximally with mild decrease in the pressures probably related to vasoconstriction or less likely very distal dis ease. Cleared by all consults for discharge . Significant clinical improvement. Patient is being discharged home in a stable condition with guarded prognosis. The impression and plan of care has been dictated as directed. : I performed a history and examination of this patient, discussed the same with the dictator. I agree with the dictator's note ,documented as a scribe. Any additional findings or plans will be noted. Patient Condition at Discharge: Stable Plan - Discharge Summary Discharge Rx Participant: Yes New Discharge Prescriptions: New Docusate [Colace] 100 mg PO BID cap Continue Metoprolol Tartrate [Lopressor] 25 mg PO BID Rivaroxaban [Xarelto] 20 mg PO PC-SUPPER Furosemide 40 mg PO DAILY Gabapentin 600 mg PO TID Fluticasone/Salmeterol [Advair 250-50 Diskus] 1 puff INHALATION RT-BID Tiotropium 18 Mcg/Puff [Spiriva] 1 puff INHALATION QAM Albuterol Nebulized [Ventolin Nebulized] 2.5 mg INHALATION TID oxyCODONE HCL/ACETAMINOPHEN [Percocet 10-325 mg] 1 tab PO TID PRN PRN Reason: Pain Atorvastatin [Lipitor] 40 mg PO HS Multivitamin [Men's Multi-Vitamin] 1 each PO DAILY Doxycycline Hyclate 100 mg PO BID predniSONE See Taper PO DAILY Albuterol Sulfate [Ventolin HFA] 2 puff INHALATION RT-QID PRN PRN Reason: Shortness Of Breath Ipratropium-Albuterol Nebulize [Duoneb 0.5 mg-3 mg/3 ml Soln] 3 ml INHALATION RT-QID Discharge Medication List Metoprolol Tartrate [Lopressor] 25 mg PO BID 08/06/13 [History] Rivaroxaban [Xarelto] 20 mg PO PC-SUPPER 08/06/13 [History] Furosemide 40 mg PO DAILY 08/09/13 [History] Gabapentin 600 mg PO TID 06/24/14 [History] Fluticasone/Salmeterol [Advair 250-50 Diskus] 1 puff INHALATION RT-BID 08/18/14 [History] Tiotropium 18 Mcg/Puff [Spiriva] 1 puff INHALATION QAM 08/18/14 [History] Albuterol Nebulized [Ventolin Nebulized] 2.5 mg INHALATION TID 08/09/16 [History] oxyCODONE HCL/ACETAMINOPHEN [Percocet 10-325 mg] 1 tab PO TID PRN 08/09/16 [History] Atorvastatin [Lipitor] 40 mg PO HS 01/20/18 [History] Multivitamin [Men's Multi-Vitamin] 1 each PO DAILY 01/20/18 [History] Albuterol Sulfate [Ventolin HFA] 2 puff INHALATION RT-QID PRN 11/22/19 [History] Doxycycline Hyclate 100 mg PO BID 11/22/19 [History] Ipratropium-Albuterol Nebulize [Duoneb 0.5 mg-3 mg/3 ml Soln] 3 ml INHALATION RT-QID 11/22/19 [History] predniSONE See Taper PO DAILY 11/22/19 [History] Docusate [Colace] 100 mg PO BID cap 11/25/19 [Rx] Follow up Appointment(s)/Referral(s): Tiago Landeros MD [STAFF PHYSICIAN] - 2 Weeks Adams Abraham DO [Primary Care Provider] - 3 Days Myke Ayon MD [REFERRING] - 2 Weeks
--- NOTE | 2019-11-25 14:56 | P.PN ---
Subjective Progress Note Date: 11/25/19 Patient was seen at bedside and he said he is doing well. Denies any new weakness numbness visual disturbance the slurring the speech. Objective - Vital Signs Vital signs: Vital Signs Temp 98.2 F 11/25/19 12:19 Pulse 72 11/25/19 12:19 Resp 17 11/25/19 12:19 BP 100/65 11/25/19 12:19 Pulse Ox 90 L 11/25/19 12:19 Intake & Output 11/24/19 11/25/19 11/25/19 18:59 06:59 18:59 Intake Total 720 Balance 720 Weight 79.832 kg 81 kg Intake: Oral 720 Other: Voiding Method Urinal Urinal Urinal Diaper Diaper Diaper Incontinent Incontinent Incontinent - Exam GENERAL: The patient is lying in bed and is not in acute distress. HENT: Blackish/purplish discoloration on center of forehead from a fall 2 weeks ago. Otherwise Normocephalic and atraumatic. CHEST: The heart rate is irregular rate rhythm. No murmurs to auscultation. LUNG: Clear to auscultation bilaterally no wheezing noted throughout. Not labored breathing. ABDOMEN/GI: Bowel sounds present in all 4 quadrants. No tenderness to palpation throughout. NEUROLOGICAL: Higher mental function: The patient is awake, alert, oriented to self, place and time. Patient is following commands. No aphasia and no neglect. Cranial nerves: The pupils are round, equal and reactive to light and accommodation. Visual marquez are full to confrontation throughout. Extraocular movement is intact no nystagmus is noted. Facial sensation is normal to touch throughout. The facial strength is normal throughout. Hearing is normal bilaterally to hand rub. Tongue is midline and moved [id number] without any difficulty. No dysarthria is noted. Shoulder shrug is normal bilaterally. Motor: Gait is defered. Strength: Limitation in assessing the right lower extremity since right leg was wrapped from just distal to knee all way to mid- foot area. Strength of the right lower extremity proximally is 5/5 while right ankle: plantar flexion 2/5 while dorsiflexion and eversion 1-2/5 while inversion 3/5. Otherwise 5 over 5 throughout bilateral upper and left lower extremity. Cerebellum: Normal finger to nose bilaterally. Sensation: Sensation is normal to touch in bilateral upper extremities but decreased from distal right knee compared to left lower extremity. Reflexes (right/left): 2+ bilateral upper extremities while bilateral patellar are 1-2+ and left ankle is 1+. Right ankle not assessed because of condition. Plantars is downgoing on the left but unable to assess right. - Labs CBC & Chem 7: 11/25/19 06:40 11/25/19 06:40 Labs: Abnormal Lab Results - Last 24 Hours (Table) 11/24/19 11/24/19 11/24/19 Range/Units 15:28 16:53 19:57 RBC (4.30-5.90) m/uL Hgb (13.0-17.5) gm/dL Hct (39.0-53.0) % MCH (25.0-35.0) pg MCHC (31.0-37.0) g/dL RDW (11.5-15.5) % Lymphocytes # (1.0-4.8) k/uL Chloride (98-107) mmol/L Carbon Dioxide (22-30) mmol/L BUN (9-20) mg/dL Glucose (74-99) mg/dL POC Glucose (mg/dL) 222 H 214 H (75-99) mg/dL Calcium (8.4-10.2) mg/dL TSH <0.015 L (0.465-4.680) mIU/L 11/25/19 11/25/19 11/25/19 Range/Units 06:40 06:40 07:14 RBC 3.52 L (4.30-5.90) m/uL Hgb 8.5 L (13.0-17.5) gm/dL Hct 29.7 L (39.0-53.0) % MCH 24.3 L (25.0-35.0) pg MCHC 28.8 L (31.0-37.0) g/dL RDW 16.9 H (11.5-15.5) % Lymphocytes # 0.3 L (1.0-4.8) k/uL Chloride 95 L (98-107) mmol/L Carbon Dioxide 40 H (22-30) mmol/L BUN 36 H (9-20) mg/dL Glucose 134 H (74-99) mg/dL POC Glucose (mg/dL) 161 H (75-99) mg/dL Calcium 8.1 L (8.4-10.2) mg/dL TSH (0.465-4.680) mIU/L 11/25/19 Range/Units 11:53 RBC (4.30-5.90) m/uL Hgb (13.0-17.5) gm/dL Hct (39.0-53.0) % MCH (25.0-35.0) pg MCHC (31.0-37.0) g/dL RDW (11.5-15.5) % Lymphocytes # (1.0-4.8) k/uL Chloride (98-107) mmol/L Carbon Dioxide (22-30) mmol/L BUN (9-20) mg/dL Glucose (74-99) mg/dL POC Glucose (mg/dL) 157 H (75-99) mg/dL Calcium (8.4-10.2) mg/dL TSH (0.465-4.680) mIU/L Assessment and Plan Assessment: 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 Chronic left frontal stroke. 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 As well as the left frontal ischemia seen which was not seen the and 2014 and likely is a result of a fall. For the atrial fibrillation the patient is on Xarelto 20 mg daily. Because of the patient falls I don't recommend adding get antiplatelet in addition with the Xarelto for the secondary stroke prophylaxis I believe Xarelto is sufficient enough. Maybe consider placing the patient on Ruthann course as since there is less risk of 5 major the lead such as intracranial bleed compared to other oral anticoagulant. We'll defer the management to the primary as well as the cardiology team. Continue Lipitor 40 mg daily. carotid duplex: No hemodynamically significant stenosis bilaterally. Any stenosis that may be present is less than 50%. Large heterogeneous thyroid gland incompletely evaluated. Lipid panel: Pending. Ammonia level <9. vitamin B12: 457, folate: 19, TSH: <0.015 and free T4: 1.32. . He is on gabapentin 600 milligrams 3 times a day as home medication, for his neuropathy (home med). Cardiology is on board Regarding the management for concern of right lower at ischemia and anemia we'll defer the management to the primary team The patient was counseled on tobacco cessation. The plan was discussed with the patient as well as that his family members.. Upon discharge the patient needs to follow up with a neurologist. I notified the patient the as well as daughter that the patient the need said to follow-up regarding his left subdural hematoma/left frontal ischemia as well as a the chronic lower back pain with right foot drop with numbness of lower extremities. I notified them that patient the to get EMG with nerve conduction as an outpatient regarding his right foot drop but will defer that management to the outpatient neurologist. He is clear from neurology perspective. If neurology is needed, please reconsult. Umu Lyman. Neuro-hospitalist Time with Patient: Greater than 30
[2019-11-25 15:18] LABS: Cholesterol 100 mg/dL (<200); HDL Cholesterol 55 mg/dL (40-60); LDL Cholesterol,Calculated 36 mg/dL (0-99); Triglycerides 46 mg/dL (<150)
== END 2019-11-25 15:20 | disposition home or self-care (01) | DRG 291 ==
LOC: EC 17:07 → 5NMEDONC 19:01 → 6NMEDSUR 11-24 06:42
PROVIDERS: ADMIT Family Medicine; ATTEND Family Medicine
DX: I11.0 Hypertensive heart disease with heart failure (principal); J96.21 Acute and chronic respiratory failure with hypoxia; L89.513 Pressure ulcer of right ankle, stage 3; I63.9 Cerebral infarction, unspecified; S06.5X0A Traumatic subdural hemorrhage without loss of consciousness, initial encounter; J44.1 Chronic obstructive pulmonary disease with (acute) exacerbation; I48.19 Other persistent atrial fibrillation; G96.0 Cerebrospinal fluid leak; E78.5 Hyperlipidemia, unspecified; I50.33 Acute on chronic diastolic (congestive) heart failure; I25.10 Atherosclerotic heart disease of native coronary artery without angina pectoris; K21.9 Gastro-esophageal reflux disease without esophagitis; M19.90 Unspecified osteoarthritis, unspecified site; I27.20 Pulmonary hypertension, unspecified; Z96.643 Presence of artificial hip joint, bilateral; G89.29 Other chronic pain; M54.9 Dorsalgia, unspecified; R29.6 Repeated falls; H26.9 Unspecified cataract; I45.10 Unspecified right bundle-branch block; W18.30XA Fall on same level, unspecified, initial encounter; M21.371 Foot drop, right foot; R73.03 Prediabetes; F17.210 Nicotine dependence, cigarettes, uncomplicated; E03.9 Hypothyroidism, unspecified; D64.9 Anemia, unspecified; Z95.1 Presence of aortocoronary bypass graft; Z79.899 Other long term (current) drug therapy; Z79.52 Long term (current) use of systemic steroids; Z79.01 Long term (current) use of anticoagulants; Z87.01 Personal history of pneumonia (recurrent); Z86.010 Personal history of colon polyps; I25.2 Old myocardial infarction; Z86.14 Personal history of Methicillin resistant Staphylococcus aureus infection; Z98.890 Other specified postprocedural states; Z99.81 Dependence on supplemental oxygen; Z80.9 Family history of malignant neoplasm, unspecified; Z87.09 Personal history of other diseases of the respiratory system
CPT/HCPCS: 36415; 70450; 71045; 71046; 80048; 80053; 80061; 82140; 82607; 82746; 82747; 83036; 83605; 83880; 84439; 84443; 84484; 85025; 85027; 85610; 85730; 93005; 93306; 93880; 93922; 93923; 94640; 94760; 96374; 99285

== ENCOUNTER 2019-12-20 10:10 | Inpatient (IN) | payer MEDICARE ==
[2019-12-20] MEDS ORDERED: IPRATROPIUM-ALBUTEROL 3 ML NEB INHALATION STA (10:35)
[2019-12-20] MEDS ORDERED: MORPHINE SULFATE 4 MG/ML SYRINGE IVP STA (10:36)
[2019-12-20] MEDS ORDERED: ONDANSETRON 4 MG/2 ML VIAL IVP STA (10:36)
[2019-12-20 11:02] LABS: Anisocytosis Slight; Basophils % (A) 0 %; Eosinophils # (A) 0.2 k/uL (0-0.7); Eosinophils % (A) 2 %; HCT 30.6 % (39.0-53.0); HGB 8.7 gm/dL (13.0-17.5); Hypochromasia Marked; Lymphocytes % (A) 15 %; MCH 24.1 pg (25.0-35.0); MCHC 28.5 g/dL (31.0-37.0); MCV 84.5 fL (80.0-100.0); Mean Platelet Volume 6.9; Monocytes # (A) 0.8 k/uL (0-1.0); Monocytes % (A) 12 %; Neutrophils # (A) 4.7 k/uL (1.3-7.7); Neutrophils % (A) 69 %; Platelet Count 243 k/uL (150-450); RBC 3.62 m/uL (4.30-5.90); RDW 18.9 % (11.5-15.5); WBC 6.8 k/uL (3.8-10.6)
[2019-12-20 11:13] LABS: ALT 29 U/L (4-49); AST 33 U/L (17-59); African American GFR (CKD) >90 (>60 ml/min/1.73 sqM); Albumin 3.3 g/dL (3.5-5.0); Alkaline Phosphatase 66 U/L (38-126); Anion Gap 1 mmol/L; Blood Urea Nitrogen 21 mg/dL (9-20); Calcium 8.4 mg/dL (8.4-10.2); Carbon Dioxide 37 mmol/L (22-30); Chloride 104 mmol/L (98-107); Glucose 118 mg/dL (74-99); Magnesium 1.9 mg/dL (1.6-2.3); Non-African American GFR(CKD) >90 (>60 ml/min/1.73 sqM); Sodium 142 mmol/L (137-145); Total Bilirubin 0.7 mg/dL (0.2-1.3); Total Protein 5.6 g/dL (6.3-8.2)
[2019-12-20 11:17] LABS: INR 1.2 (<1.2); Partial Thromboplastin Time 27.1 sec (22.0-30.0); Prothrombin Time 11.8 sec (9.0-12.0)
--- NOTE | 2019-12-20 11:37 | XR ---
EXAMINATION TYPE: XR chest 2V DATE OF EXAM: 12/20/2019 COMPARISON: 11/24/2019 TECHNIQUE: PA and lateral views submitted. HISTORY: Shortness of breath FINDINGS: Heart is enlarged and there is hyperinflation. Subsegmental changes are seen in the right lung base w ith small effusion and there is postoperative change. Atherosclerotic change aorta. Arthropathy of th e shoulders. Diffuse interstitial pattern. Hypertrophic and degenerative change of the spine. IMPRESSION: 1. COPD with right basilar infiltrate and small effusion. Correlate for mild venous congestion.
[2019-12-20] MEDS ORDERED: cefTRIAXone IN SWFI 1,000 MG/10 ML SYRINGE IVP STA (11:54)
[2019-12-20] MEDS ORDERED: FUROSEMIDE 10 MG/ML 4 ML VIAL IV STA (12:11)
[2019-12-20] MEDS ORDERED: methylPREDNISolone SOD SUCCI 125 MG/2 ML VIAL IV STA (12:14)
--- NOTE | 2019-12-20 12:14 | ED ---
SOB HPI - General Source: patient, EMS, RN notes reviewed Mode of arrival: EMS Limitations: no limitations <Davon Holcomb - Last Filed: 12/20/19 12:17> <Arnel Ward - Last Filed: 12/20/19 12:59> - General Chief Complaint: Shortness of Breath Stated Complaint: SUMMER Time Seen by Provider: 12/20/19 10:20 - History of Present Illness Initial Comments: 79-year-old male presents emergency Department chief complaint shortness breath. Patient states increases last couple days. Patient is on home O2 for chronic COPD. Patient has productive cough. No reported fever. Patient does have history of CHF has some mild leg swelling. Patient has no complaints of chest pain or abdominal pain. Patient does admit that his chronic wounds on his sacrum, lower extremity which is ongoing. (Davon Holcomb) - Related Data Home Medications Medication Instructions Recorded Confirmed Metoprolol Tartrate [Lopressor] 25 mg PO BID 08/06/13 12/20/19 Rivaroxaban [Xarelto] 20 mg PO PC-SUPPER 08/06/13 12/20/19 Furosemide 40 mg PO DAILY 08/09/13 12/20/19 Gabapentin 600 mg PO BID 06/24/14 12/20/19 Fluticasone/Salmeterol [Advair 1 puff INHALATION RT-BID 08/18/14 12/20/19 250-50 Diskus] Tiotropium 18 Mcg/Puff [Spiriva] 1 puff INHALATION RT-DAILY 08/18/14 12/20/19 Albuterol Nebulized [Ventolin 2.5 mg INHALATION RT-TID 08/09/16 12/20/19 Nebulized] oxyCODONE HCL/ACETAMINOPHEN 1 tab PO TID PRN 08/09/16 12/20/19 [Percocet 10-325 mg] Atorvastatin [Lipitor] 40 mg PO HS 01/20/18 12/20/19 Multivitamin [Men's Multi-Vitamin] 1 each PO DAILY 01/20/18 12/20/19 Albuterol Sulfate [Ventolin HFA] 2 puff INHALATION RT-QID PRN 11/22/19 12/20/19 Ipratropium-Albuterol Nebulize 3 ml INHALATION RT-QID 11/22/19 12/20/19 [Duoneb 0.5 mg-3 mg/3 ml Soln] predniSONE See Taper PO DAILY 11/22/19 12/20/19 tiZANidine HCL [Zanaflex] 4 mg PO BID PRN 12/20/19 12/20/19 Previous Rx's Medication Instructions Recorded Docusate [Colace] 100 mg PO BID cap 11/25/19 Allergies Allergy/AdvReac Type Severity Reaction Status Date / Time No Known Allergies Allergy Verified 12/20/19 12:04 Review of Systems ROS Other: All systems not noted in ROS Statement are negative. <Davon Holcomb - Last Filed: 12/20/19 12:17> ROS Other: All systems not noted in ROS Statement are negative. <Arnel Ward - Last Filed: 12/20/19 12:59> ROS Statement: Those systems with pertinent positive or pertinent negative responses have been documented in the HPI. Past Medical History Past Medical History: Atrial Fibrillation, COPD, GERD/Reflux, Hypertension, Myocardial Infarction ([place]), Musculoskeletal Disorder, Osteoarthritis (OA), Pneumonia, Thyroid Disorder Additional Past Medical History / Comment(s): left breast mass HX OF COLON POLYPS. HX RIGHT BREAST MASS. O2 AT 2L NC @HS AND PRN. Hx Aspiration Pneumonia R/T "FLAPPER." HX OF THYROID PROBLEM - NO TX NOW. CHRONIC BACK PAIN, JAIME LEG NT. RT FOOT/ANKLE EDEMA, WEARS TEDS. JAIME CTS Last Myocardial Infarction Date:: 1987 History of Any Multi-Drug Resistant Organisms: MRSA Date of last positivie culture/infection: 1988-chest, 03/2012-01/2013 ankle sore MDRO Source:: staph after open heart; Right Ankle pressure sore Past Surgical History: Back Surgery, Coronary Bypass/CABG, Joint Replacement, Orthopedic Surgery Additional Past Surgical History / Comment(s): left carpel tunnel, CARPAL TUNNEL RIGHT x 2. CABG 1987 X2. JAIME SCOPES KNEES. Jamie Hip Replacement, Nicholas Fundoplicaton. Rt Shoulder Rotator Cuff. BACK X2. HX OF EPIDURALS FOR PAIN. Past Anesthesia/Blood Transfusion Reactions: No Reported Reaction Past Psychological History: No Psychological Hx Reported Smoking Status: Current every day smoker Past Alcohol Use History: None Reported Past Drug Use History: None Reported - Past Family History Daughter(s) Family Medical History: Cancer Father History Unknown: Yes Mother Family Medical History: No Reported History <Davon Holcomb - Last Filed: 12/20/19 12:17> General Exam General appearance: alert, in no apparent distress Head exam: Present: atraumatic, normocephalic, normal inspection Eye exam: Present: normal appearance, PERRL, EOMI. Absent: scleral icterus, conjunctival injection, periorbital swelling ENT exam: Present: normal exam, normal oropharynx, mucous membranes moist Neck exam: Present: normal inspection, full ROM. Absent: tenderness, meningismus, lymphadenopathy Respiratory exam: Present: wheezes, decreased breath sounds. Absent: normal lung sounds bilaterally, respiratory distress, rales, rhonchi, stridor Cardiovascular Exam: Present: normal rhythm, tachycardia, normal heart sounds. Absent: systolic murmur, diastolic murmur, rubs, gallop, clicks GI/Abdominal exam: Present: soft, normal bowel sounds. Absent: distended, tenderness, guarding, rebound, rigid Extremities exam: Present: pedal edema, other (Multiple lower extremity wounds noted, mild swelling noted) Neurological exam: Present: alert, oriented X3 Skin exam: Present: warm, dry, intact, normal color. Absent: rash <Davon Holcomb - Last Filed: 12/20/19 12:17> Course Vital Signs 12/20/19 12/20/19 12/20/19 10:19 11:31 11:48 Temperature 99.3 F Pulse Rate 102 H 110 H 112 H Respiratory 18 Rate Blood Pressure 111/75 O2 Sat by Pulse 100 Oximetry Medical Decision Making - Lab Data Result diagrams: 12/20/19 10:40 12/20/19 10:40 - EKG Data -: EKG Interpreted by Il <Davon Holcomb - Last Filed: 12/20/19 12:17> - Lab Data Result diagrams: 12/20/19 10:40 12/20/19 10:40 <Arnel Ward - Last Filed: 12/20/19 12:59> - Medical Decision Making 79-year-old male presented from for shortness of breath. Patient has acute COPD exacerbation with pneumonia, mild CHF. Patient be admitted for antibiotics, d iuresis and further evaluation. (Davon Holcomb) Patient reevaluated and reexamined by myself, Dr. Ward. Patient resting comfortably in bed. Lung sounds with decreased air exchange. Patient still feels short of breath. X-ray reviewed. Case was discussed in detail with Dr. Abraham, covering for Dr. Abraham who will admit and see patient. Patient updated. I do agree with PA findings. This includes diagnostic interpretation and treatment plan. (Arnel Ward) - Lab Data Lab Results 12/20/19 12/20/19 12/20/19 Range/Units 10:40 10:40 10:40 WBC 6.8 (3.8-10.6) k/uL RBC 3.62 L (4.30-5.90) m/uL Hgb 8.7 L (13.0-17.5) gm/dL Hct 30.6 L (39.0-53.0) % MCV 84.5 (80.0-100.0) fL MCH 24.1 L (25.0-35.0) pg MCHC 28.5 L (31.0-37.0) g/dL RDW 18.9 H (11.5-15.5) % Plt Count 243 (150-450) k/uL Neutrophils % 69 % Lymphocytes % 15 % Monocytes % 12 % Eosinophils % 2 % Basophils % 0 % Neutrophils # 4.7 (1.3-7.7) k/uL Lymphocytes # 1.0 (1.0-4.8) k/uL Monocytes # 0.8 (0-1.0) k/uL Eosinophils # 0.2 (0-0.7) k/uL Basophils # 0.0 (0-0.2) k/uL Hypochromasia Marked Anisocytosis Slight PT 11.8 (9.0-12.0) sec INR 1.2 H (<1.2) APTT 27.1 (22.0-30.0) sec Sodium 142 (137-145) mmol/L Potassium 4.0 (3.5-5.1) mmol/L Chloride 104 (98-107) mmol/L Carbon Dioxide 37 H (22-30) mmol/L Anion Gap 1 mmol/L BUN 21 H (9-20) mg/dL Creatinine 0.55 L (0.66-1.25) mg/dL Est GFR (CKD-EPI)AfAm >90 (>60 ml/min/1.73 sqM) Est GFR (CKD-EPI)NonAf >90 (>60 ml/min/1.73 sqM) Glucose 118 H (74-99) mg/dL Plasma Lactic Acid Gio (0.7-2.0) mmol/L Calcium 8.4 (8.4-10.2) mg/dL Magnesium 1.9 (1.6-2.3) mg/dL Total Bilirubin 0.7 (0.2-1.3) mg/dL AST 33 (17-59) U/L ALT 29 (4-49) U/L Alkaline Phosphatase 66 (38-126) U/L Troponin I (0.000-0.034) ng/mL NT-Pro-B Natriuret Pep pg/mL Total Protein 5.6 L (6.3-8.2) g/dL Albumin 3.3 L (3.5-5.0) g/dL 12/20/19 12/20/19 12/20/19 Range/Units 10:40 10:40 10:40 WBC (3.8-10.6) k/uL RBC (4.30-5.90) m/uL Hgb (13.0-17.5) gm/dL Hct (39.0-53.0) % MCV (80.0-100.0) fL MCH (25.0-35.0) pg MCHC (31.0-37.0) g/dL RDW (11.5-15.5) % Plt Count (150-450) k/uL Neutrophils % % Lymphocytes % % Monocytes % % Eosinophils % % Basophils % % Neutrophils # (1.3-7.7) k/uL Lymphocytes # (1.0-4.8) k/uL Monocytes # (0-1.0) k/uL Eosinophils # (0-0.7) k/uL Basophils # (0-0.2) k/uL Hypochromasia Anisocytosis PT (9.0-12.0) sec INR (<1.2) APTT (22.0-30.0) sec Sodium (137-145) mmol/L Potassium (3.5-5.1) mmol/L Chloride (98-107) mmol/L Carbon Dioxide (22-30) mmol/L Anion Gap mmol/L BUN (9-20) mg/dL Creatinine (0.66-1.25) mg/dL Est GFR (CKD-EPI)AfAm (>60 ml/min/1.73 sqM) Est GFR (CKD-EPI)NonAf (>60 ml/min/1.73 sqM) Glucose (74-99) mg/dL Plasma Lactic Acid Gio 0.8 (0.7-2.0) mmol/L Calcium (8.4-10.2) mg/dL Magnesium (1.6-2.3) mg/dL Total Bilirubin (0.2-1.3) mg/dL AST (17-59) U/L ALT (4-49) U/L Alkaline Phosphatase (38-126) U/L Troponin I 0.023 (0.000-0.034) ng/mL NT-Pro-B Natriuret Pep 1970 pg/mL Total Protein (6.3-8.2) g/dL Albumin (3.5-5.0) g/dL - EKG Data EKG Comments: EKG performed at 1214 A. fib with a rate of 108 MI 146 QRS [id number] (Davon Holcomb) Disposition <Davon Holcomb - Last Filed: 12/20/19 12:17> <Arnel Ward - Last Filed: 12/20/19 12:59> Clinical Impression: COPD exacerbation, Pneumonia, Pleural effusion, A-fib Disposition: ADMITTED IP TO THIS HOSP Referrals: Adams Abraham DO [Primary Care Provider] - 1-2 days
[2019-12-20] MEDS ORDERED: AZITHROMYCIN 500 MG in SODIUM CHLORIDE 0.9% 250 ML IVPB STA (12:15)
[2019-12-20] MEDS ORDERED: MORPHINE SULFATE 4 MG/ML SYRINGE IVP PRN (13:03)
[2019-12-20] MEDS ORDERED: ACETAMINOPHEN TAB 325 MG TAB PO STA (13:03)
[2019-12-20] MEDS ORDERED: tiZANidine 4 MG TAB PO PRN (14:55)
[2019-12-20] MEDS: IPRATROPIUM-ALBUTEROL 3 ML NEB INHALATION SCH ×2 (15:40→19:44)
[2019-12-20] MEDS ORDERED: IPRATROPIUM-ALBUTEROL 3 ML NEB INHALATION SCH (16:00)
--- NOTE | 2019-12-20 16:53 | P.HPIM ---
History of Present Illness 79-year-old male came in with complaints of shortness of breath patient does use didn't have liters of onset at home patient of the requirements of the patient has been wheezing on upon arrival and patient has significant improvement with the Solu-Medrol and breathing treatments. Patient denied any fever chills. Patient apparently quit smoking but dyspneic since he would sometimes. He does follow with pulmonary as an outpatient. She denied any nausea vomiting. Patient does have some chronic uninfected wounds in the lower extremities. She chest x-ray showed mild infiltrate in the right lower lung marquez which is mostly atelectasis patient clinically doesn't appear to have pneumonia. Patient doesn't have any fever or leukocytosis doesn't have any cough with significant sputum production patient was given a dose of Rocephin and azithromycin patient does notice can urine patient was started on doxycycline along with the IV steroids and inhalational treatments. Review of Systems REVIEW OF SYSTEMS: CONSTITUTIONAL: No fever, no malaise, no fatigue. HEENT: No recent visual problems or hearing problems. Denied any sore throat. CARDIOVASCULAR: No chest pain, orthopnea, PND, no palpitations, no syncope. PULMONARY: As mentioned in HPI GASTROINTESTINAL: No diarrhea, no nausea, no vomiting, no abdominal pain. NEUROLOGICAL: No headaches, no weakness, no numbness. HEMATOLOGICAL: Denies any bleeding or petechiae. GENITOURINARY: Denies any burning micturition, frequency, or urgency. MUSCULOSKELETAL/RHEUMATOLOGICAL: Denies any joint pain, swelling, or any muscle pain. ENDOCRINE: Denies any polyuria or polydipsia. The rest of the 14-point review of systems is negative. Past Medical History Past Medical History: Atrial Fibrillation, COPD, GERD/Reflux, Hypertension, Myocardial Infarction ([place]), Musculoskeletal Disorder, Osteoarthritis (OA), Pneumonia, Thyroid Disorder Additional Past Medical History / Comment(s): left breast mass HX OF COLON POLYPS. HX RIGHT BREAST MASS. O2 AT 2L NC @HS AND PRN. Hx Aspiration Pneumonia R/T "FLAPPER." HX OF THYROID PROBLEM - NO TX NOW. CHRONIC BACK PAIN, RUPESH LEG NT. RT FOOT/ANKLE EDEMA, WEARS TEDS. 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 CABG 1987 X2. RUPESH SCOPES KNEES. Rupesh Hip Replacement, Nicholas Fundoplicaton. Rt Shoulder Rotator Cuff. BACK X2. HX OF EPIDURALS FOR PAIN. Past Anesthesia/Blood Transfusion Reactions: No Reported Reaction Past Psychological History: No Psychological Hx Reported Smoking Status: Current every day smoker Past Alcohol Use History: None Reported Past Drug Use History: None Reported - Past Family History Daughter(s) Family Medical History: Cancer Father History Unknown: Yes Mother Family Medical History: No Reported History Medications and Allergies Home Medications Medication Instructions Recorded Confirmed Type Metoprolol Tartrate [Lopressor] 25 mg PO BID 08/06/13 12/20/19 History Rivaroxaban [Xarelto] 20 mg PO PC-SUPPER 08/06/13 12/20/19 History Furosemide 40 mg PO DAILY 08/09/13 12/20/19 History Gabapentin 600 mg PO BID 06/24/14 12/20/19 History Fluticasone/Salmeterol [Advair 1 puff INHALATION RT-BID 08/18/14 12/20/19 History 250-50 Diskus] Tiotropium 18 Mcg/Puff [Spiriva] 1 puff INHALATION RT-DAILY 08/18/14 12/20/19 History Albuterol Nebulized [Ventolin 2.5 mg INHALATION RT-TID 08/09/16 12/20/19 History Nebulized] oxyCODONE HCL/ACETAMINOPHEN 1 tab PO TID PRN 08/09/16 12/20/19 History [Percocet 10-325 mg] Atorvastatin [Lipitor] 40 mg PO HS 01/20/18 12/20/19 History Multivitamin [Men's Multi-Vitamin] 1 each PO DAILY 01/20/18 12/20/19 History Albuterol Sulfate [Ventolin HFA] 2 puff INHALATION RT-QID PRN 11/22/19 12/20/19 History Ipratropium-Albuterol Nebulize 3 ml INHALATION RT-QID 11/22/19 12/20/19 History [Duoneb 0.5 mg-3 mg/3 ml Soln] predniSONE See Taper PO DAILY 11/22/19 12/20/19 History Docusate [Colace] 100 mg PO BID cap 11/25/19 12/20/19 Rx tiZANidine HCL [Zanaflex] 4 mg PO BID PRN 12/20/19 12/20/19 History Allergies Allergy/AdvReac Type Severity Reaction Status Date / Time No Known Allergies Allergy Verified 12/20/19 12:04 Physical Exam Vitals: Vital Signs Temp Pulse Resp BP Pulse Ox 12/20/19 16:02 100 16 118/72 95 12/20/19 15:42 92 12/20/19 13:30 98.8 F 100 18 102/73 94 L 12/20/19 11:48 112 H 12/20/19 11:31 110 H 12/20/19 10:19 99.3 F 102 H 18 111/75 100 Intake and Output 12/20/19 12/20/19 12/20/19 06:59 14:59 22:59 Other: Weight 78.925 kg PHYSICAL EXAMINATION: GENERAL: The patient is alert and oriented x3, not in any acute distress. Well developed, well nourished. HEENT: Pupils are round and equally reacting to light. EOMI. No scleral icterus. No conjunctival pallor. Normocephalic, atraumatic. No pharyngeal erythema. No thyromegaly. CARDIOVASCULAR: S1 and S2 present. No murmurs, rubs, or gallops. PULMONARY: Chest tightness and decreased air entry into bilateral lung marquez along with the expiratory wheezing on exam ABDOMEN: Soft, nontender, nondistended, normoactive bowel sounds. No palpable organomegaly. MUSCULOSKELETAL: No joint swelling or deformity. EXTREMITIES: No cyanosis, clubbing, or pedal edema. NEUROLOGICAL: Gross neurological examination did not reveal any focal deficits. SKIN: No rashes. Results CBC & Chem 7: 12/20/19 10:40 12/20/19 10:40 Labs: Abnormal Lab Results - Last 24 Hours (Table) 12/20/19 12/20/19 12/20/19 Range/Units 10:40 10:40 10:40 RBC 3.62 L (4.30-5.90) m/uL Hgb 8.7 L (13.0-17.5) gm/dL Hct 30.6 L (39.0-53.0) % MCH 24.1 L (25.0-35.0) pg MCHC 28.5 L (31.0-37.0) g/dL RDW 18.9 H (11.5-15.5) % INR 1.2 H (<1.2) Carbon Dioxide 37 H (22-30) mmol/L BUN 21 H (9-20) mg/dL Creatinine 0.55 L (0.66-1.25) mg/dL Glucose 118 H (74-99) mg/dL Total Protein 5.6 L (6.3-8.2) g/dL Albumin 3.3 L (3.5-5.0) g/dL Assessment and Plan Plan: -Acute on chronic hypercapnic respiratory failure: Continue with oxygen as needed continue systems steroids inhalational treatments pulmonology was consulted. -His heart failure chronic the start dysfunction presently doesn't appear to be in acute exacerbation patient will be resumed on his home dose of Lasix -Severe pulmonary hypertension secondary to COPD -Gastroesophageal reflux disease -Proximal A. fib presently sinus rhythm continue with anti-correlation -Hypothyroidism - osteoarthritis -GI prophylaxis with Pepcid -Nicotine abuse: Counseling was provided
[2019-12-20] MEDS: SYMBICORT 80-4.5 MCG INHALER INHALATION SCH (19:43)
[2019-12-20] MEDS: RIVAROXABAN 20 MG TAB PO SCH (20:52)
[2019-12-20] MEDS: DOXYCYCLINE 100 MG CAP PO SCH (20:53)
[2019-12-20] MEDS: ATORVASTATIN 40 MG TAB PO SCH (20:54)
[2019-12-20] MEDS: GABAPENTIN 300 MG CAP PO SCH (20:54)
[2019-12-20] MEDS: DOCUSATE 100 MG CAP PO SCH (20:54)
[2019-12-20] MEDS: METOPROLOL TARTRATE 25 MG TAB PO SCH (20:55)
[2019-12-20] MEDS: methylPREDNISolone SOD SUCCI 40 MG/ML 1 ML VIAL IV SCH (20:57)
[2019-12-21] MEDS: MULTIVITAMINS, THERA 1 EACH TAB PO SCH (09:23)
[2019-12-21] MEDS: METOPROLOL TARTRATE 25 MG TAB PO SCH ×2 (09:23→20:43)
[2019-12-21] MEDS: GABAPENTIN 300 MG CAP PO SCH ×2 (09:23→20:43)
[2019-12-21] MEDS: methylPREDNISolone SOD SUCCI 40 MG/ML 1 ML VIAL IV SCH ×3 (09:23→23:35)
[2019-12-21] MEDS: FUROSEMIDE 40 MG TAB PO SCH (09:23)
[2019-12-21] MEDS: DOCUSATE 100 MG CAP PO SCH ×2 (09:24→20:43)
[2019-12-21] MEDS: DOXYCYCLINE 100 MG CAP PO SCH ×2 (09:24→20:43)
[2019-12-21] MEDS: IPRATROPIUM-ALBUTEROL 3 ML NEB INHALATION SCH ×4 (10:00→20:57)
[2019-12-21] MEDS: SYMBICORT 80-4.5 MCG INHALER INHALATION SCH (10:56)
--- NOTE | 2019-12-21 12:23 | P.PN ---
Subjective 79-year-old male was admitted for COPD exacerbation. Patient is feeling much better today and they saturating well on 3 L of oxygen probably can cut it down to 2 L now. Patient is comparing of chest pain which appeared to be musculoskeletal. We'll order one more set of troponin and EKG showed changes consistent with right bundle branch block but no acute ST-T wave changes. Constitutional: Denied any fatigue denied any fever. Cardio vascular: denied any palpitations Gastrointestinal denied any nausea vomiting Pulmonary: Denied any shortness of breath cough Neurologic denied any new focal deficits All inpatient medications were reviewed and appropriate changes in these medications as dictated in the interval history and assessment and plan. Objective - Vital Signs Vital signs: Vital Signs Temp 98.0 F 12/21/19 07:00 Pulse 88 12/21/19 11:13 Resp 18 12/21/19 07:00 BP 118/67 12/21/19 07:00 Pulse Ox 100 12/21/19 07:00 Intake & Output 12/20/19 12/21/19 12/21/19 18:59 06:59 18:59 Weight 78.925 kg 78.925 kg Other: # Voids 2 - Exam PHYSICAL EXAMINATION: GENERAL: The patient is alert and oriented x3, not in any acute distress. Well developed, well nourished. HEENT: Pupils are round and equally reacting to light. EOMI. No scleral icterus. No conjunctival pallor. Normocephalic, atraumatic. No pharyngeal erythema. No thyromegaly. CARDIOVASCULAR: S1 and S2 present. No murmurs, rubs, or gallops. PULMONARY: Decreased air entry with minimal expiratory wheezing. ABDOMEN: Soft, nontender, nondistended, normoactive bowel sounds. No palpable organomegaly. MUSCULOSKELETAL: No joint swelling or deformity. EXTREMITIES: No cyanosis, clubbing, does have bilateral pedal edema NEUROLOGICAL: Gross neurological examination did not reveal any focal deficits. SKIN: No rashes. - Labs CBC & Chem 7: 12/20/19 10:40 12/20/19 10:40 Assessment and Plan Plan: -Acute on chronic hypercapnic respiratory failure: Continue with oxygen as needed continue systems steroids inhalational treatments pulmonology evaluated the patient. -Chest pain. It to be musculoskeletal. Rule out acute coronary syndromes -And just to heart failure chronic diastolic dysfunction presently doesn't appear to be in acute exacerbation patient will be resumed on his home dose of Lasix -Severe pulmonary hypertension secondary to COPD -Gastroesophageal reflux disease -Proximal A. fib presently sinus rhythm continue with anti-correlation -Hypothyroidism - osteoarthritis -GI prophylaxis with Pepcid -Nicotine abuse: Counseling was provided
[2019-12-21 12:40] LABS: Glucose,Whole Blood 146 mg/dL (75-99)
[2019-12-21] MEDS: INSULIN ASPART (NovoLOG) 100 UNIT/ML VIAL SQ SCH ×3 (12:42→20:46)
[2019-12-21 16:12] VITALS: BMI 25.7
[2019-12-21 17:10] LABS: Glucose,Whole Blood 243 mg/dL (75-99)
[2019-12-21] MEDS: RIVAROXABAN 20 MG TAB PO SCH (17:32)
[2019-12-21] MEDS: oxyCODONE-APAP 10-325MG 1 EACH TAB PO PRN (20:43)
[2019-12-21] MEDS: ATORVASTATIN 40 MG TAB PO SCH (20:43)
[2019-12-21 20:48] LABS: Glucose,Whole Blood 123 mg/dL (75-99)
[2019-12-21] MEDS: BUDESONIDE 1 MG/2 ML NEBU INHALATION SCH (20:56)
[2019-12-21] MEDS: FORMOTEROL FUMARATE 20 MCG/2 ML NEBU INHALATION SCH (20:56)
--- NOTE | 2019-12-21 21:05 | CONS ---
CONSULTATION PULMONARY/CRITICAL CARE CONSULTATION: DATE OF SERVICE: 12/21/2019 REASON FOR CONSULTATION: Shortness of breath. This is an 79-year-old gentleman who comes to the emergency department on December 19 at 1010 complaining of increasing shortness of breath. He states the shortness of breath has been going on for a couple of days. He does use home oxygen, pretty much all the time for chronic COPD. He does complain of a productive cough. No fever. He also has a history of CHF and lower extremity edema. The patient was recently in the hospital for a similar episode. He does see Dr. Abraham as his primary and sees both my partners, including Dr. Funes and Dr. Linares. Based on an office note, the patient has stage III/stage IV COPD with an FEV 1% of 35. He also has some chronic wounds on his sacrum and lower extremity, which are ongoing issues. Currently the patient is resting comfortably in bed. He is lying basically flat. He is on nasal oxygen. He appears not to have any distress. There is no audible wheezing, use of accessory muscles or conversational dyspnea. HOME MEDICATIONS: Home medications are reviewed. He is on Lopressor, Xarelto, Lasix, gabapentin, Advair Diskus, Spiriva, albuterol updrafts, oxycodone, Lipitor, multiple vitamins, prednisone with a taper, Zanaflex and Colace. ALLERGIES: DENIED. MEDICAL HISTORY: Medical history is reviewed. He has a history of chronic atrial fibrillation, COPD, GERD, hypertension, myocardial infarction, osteoarthritis, pneumonia and left breast mass. He also has a history of colon polyps, chronic hypoxemic respiratory failure, aspiration pneumonia, chronic thyroid disease, chronic back pain and bilateral carpal tunnel syndrome. Previous myocardial infarction took place in 1997 and he also has a prior history of MRSA infection. SURGICAL HISTORY: His surgical history includes back surgery, bypass grafting, joint replacement, left carpal tunnel surgery, right carpal tunnel surgery x2, bilateral knee arthroscopy, bilateral hip replacement, Nicholas fundoplication, right shoulder rotator cuff surgery, and history of epidural injections for back pain. SOCIAL HISTORY: Positive for ongoing tobacco use. He denies any alcohol or illicit drug use. FAMILY HISTORY: Positive for a father who is healthy and mother who has no reported health problems and a daughter with cancer. REVIEW OF SYSTEMS: CONSTITUTIONAL: Negative. NEUROLOGIC: Negative. HEENT: Negative. CARDIOVASCULAR: Shortness of breath and leg swelling. PULMONARY: Shortness of breath and nonproductive cough. GI: Negative. : Negative. RHEUMATOLOGIC: Negative. IMMUNOLOGIC: Negative. ENDOCRINOLOGIC: Negative. DERMATOLOGIC: Negative. PHYSICAL EXAMINATION: VITAL SIGNS: Current vital signs are reviewed. Temperature is 98, heart rate 88, respiratory rate 18, blood pressure 118/67, mean 84, three-liter saturation 100%. GENERAL APPEARANCE: The patient appears in no acute distress. Certainly no respiratory distress. HEENT: Examination is grossly unremarkable. Nasal oxygen noted. NECK: Supple. Full range of motion. No adenopathy. Neck veins are flat. CARDIOVASCULAR: Examination reveals irregular rhythm and rate. S1, S2 normal. Heart rate is in the mid 80s. He is in atrial fibrillation. LUNGS: Lungs reveal some bibasilar crackles. Breath sounds are diminished. Breath sounds equal bilaterally. No rhonchi. ABDOMEN: Soft. Bowel sounds are heard. EXTREMITIES: Extremities reveal some mild edema. SKIN: Without rash. NEUROLOGIC: Neurologic examination is nonfocal. LABS/IMAGING: Reviewed. White count 6.8, hemoglobin 8.7, hematocrit 30.6, platelet count 343,000. PT/INR essentially normal. Sodium 142, potassium 4, chloride 104, CO2 37. Anion gap is 1. BUN and creatinine were 21 and 0.55. The patient's liver function tests are normal. Troponin was 0.023. N-terminal proBNP was 1970. Albumin was 3.3. Microbiology is currently pending or negative. Chest x-ray from December 19 shows changes of COPD with possible right basilar infiltrate and small right-sided pleural effusion as well as some changes of mild interstitial edema and venous congestion. CURRENT MEDICATIONS: Current medications are reviewed. The patient is currently on Lipitor, Symbicort, Colace, Vibramycin, Lasix, gabapentin, insulin, albuterol and Atrovent updrafts, methylprednisolone, metoprolol, morphine sulfate, multiple vitamins, oxycodone, Xarelto and Zanaflex. ASSESSMENT: 1. Shortness of breath, likely multifactorial, in part related to underlying chronic obstructive pulmonary disease exacerbation, but also mild fluid overload/pleural effusion. 2. History of chronic atrial fibrillation. 3. History of stage III/stage IV chronic obstructive pulmonary disease with an FEV1 that is 35% of predicted. 4. History of gastroesophageal reflux disease. 5. Hypertension by history. 6. Prior history of myocardial infarction. 7. Degenerative joint disease. 8. History of chronic thyroid disease. 9. History of colonic polyps. 10.Chronic hypoxemic respiratory failure. 11.History of chronic back pain, status post epidural injections. 12.Status post bypass grafting. 13.Multiple orthopedic procedures. PLAN: Please see my orders. The medications are adjusted accordingly. No additional recommendations are made. The patient should turn around hopefully within the next 24 to 48 hours. I will maximize his breathing medications at this time. Will continue to follow. MMGREGORIOL / IJN: [id number] / HEVER
[2019-12-22] MEDS: methylPREDNISolone SOD SUCCI 40 MG/ML 1 ML VIAL IV SCH ×3 (05:23→17:42)
[2019-12-22 06:48] LABS: Glucose,Whole Blood 213 mg/dL (75-99)
[2019-12-22] MEDS: IPRATROPIUM-ALBUTEROL 3 ML NEB INHALATION SCH ×5 (07:43→19:46)
[2019-12-22] MEDS: BUDESONIDE 1 MG/2 ML NEBU INHALATION SCH ×3 (07:43→19:46)
[2019-12-22] MEDS: INSULIN ASPART (NovoLOG) 100 UNIT/ML VIAL SQ SCH ×4 (08:27→21:42)
[2019-12-22] MEDS: GABAPENTIN 300 MG CAP PO SCH ×2 (08:27→21:08)
[2019-12-22] MEDS: oxyCODONE-APAP 10-325MG 1 EACH TAB PO PRN (08:27)
[2019-12-22] MEDS: MULTIVITAMINS, THERA 1 EACH TAB PO SCH (08:28)
[2019-12-22] MEDS: METOPROLOL TARTRATE 25 MG TAB PO SCH ×2 (08:28→21:08)
[2019-12-22] MEDS: DOXYCYCLINE 100 MG CAP PO SCH ×2 (08:28→21:42)
[2019-12-22] MEDS: DOCUSATE 100 MG CAP PO SCH ×2 (08:28→21:08)
[2019-12-22] MEDS: FUROSEMIDE 40 MG TAB PO SCH ×2 (08:28→21:08)
[2019-12-22] MEDS: FORMOTEROL FUMARATE 20 MCG/2 ML NEBU INHALATION SCH ×2 (09:36→19:46)
[2019-12-22 11:31] LABS: Glucose,Whole Blood 194 mg/dL (75-99)
--- NOTE | 2019-12-22 14:26 | P.PN ---
Subjective Progress Note Date: 12/22/19 This is an 79-year-old gentleman admitted with acute COPD exacerbation and multiple other medical issues. Maintained on nebulized bronchodilators, IV steroids, doxycycline with breathing improving. Evaluated by pulmonary with recommendations noted and appreciated. Denies chest pain, palpitations. Afebr ile. Objective - Vital Signs Vital signs: Vital Signs Temp 98.2 F 12/22/19 07:00 Pulse 72 12/22/19 13:01 Resp 17 12/22/19 07:00 BP 122/76 12/22/19 07:00 Pulse Ox 93 L 12/22/19 09:21 Intake & Output 12/21/19 12/22/19 12/22/19 18:59 06:59 18:59 Output Total 250 Balance -250 Weight 78.925 kg Output: Urine 250 Other: # Voids 1 - Exam PHYSICAL EXAMINATION: GENERAL: The patient is alert and oriented x3, not in any acute distress. Well developed, well nourished. HEENT: Pupils are round and equally reacting to light. EOMI. No scleral icterus. No conjunctival pallor. Normocephalic, atraumatic. No pharyngeal erythema. No thyromegaly. CARDIOVASCULAR: S1 and S2 present. No murmurs, rubs, or gallops. PULMONARY: Decreased air entry with minimal expiratory wheezing. ABDOMEN: Soft, nontender, nondistended, normoactive bowel sounds. No palpable organomegaly. MUSCULOSKELETAL: No joint swelling or deformity. EXTREMITIES: Positive edema right lower extremity with chronic medial ankle ulceration, nontender,faint pulse-arterial doppler completed on 11-24-[address] Yin. Left lower extremity, no edema, positive pulses, no calf tenderness. Bilateral shins with abrasions/scrapes. NEUROLOGICAL: Gross neurological examination did not reveal any focal deficits. SKIN: No rashes. - Labs CBC & Chem 7: 12/20/19 10:40 12/20/19 10:40 Labs: Abnormal Lab Results - Last 24 Hours (Table) 12/21/19 12/21/19 12/22/19 Range/Units 17:08 20:46 06:47 POC Glucose (mg/dL) 243 H 123 H 213 H (75-99) mg/dL 12/22/19 Range/Units 11:30 POC Glucose (mg/dL) 194 H (75-99) mg/dL Microbiology - Last 24 Hours (Table) 12/20/19 12:38 Blood Culture - Preliminary Blood No Growth after 24 hours Assessment and Plan Assessment: Acute on chronic hypoxic, hypercapnic respiratory failure secondary to Acute COPD exacerbation, acute on chronic diastolic CHF Acute CHF exacerbation, diastolic dysfunction, mild secondary to pleural effusions Severe pulmonary hypertension Chest pain, atypical ,acute coronary syndrome ruled out, troponins 2 negative, reproducible, symptoms suggestive of muscloskeletal Chronic right medial ankle ulcer Gastroesophageal reflux disease Chronic Paroxysmal atrial fibrillation, currently sinus rhythm Hypothyroidism Osteoarthritis Ongoing Nicotine dependence Chronic right foot drop secondary to chronic back surgery Recent falls secondary to the above CAD, history of [place], CABG Hypertension Borderline diabetes Chronic back pain Plan: Continue current medication regime ,monitoring and symptomatic treatment. Continue wound care with Aquacel silver. Jesus wrap right foot /lower extremity. Continue on nebulized bronchodilators, steroids, antibiotics. Discharge planning in progress soon pending pulmonary clearance. The impression and plan of care has been dictated as directed. : I performed a history and examination of this patient, discussed the same with the dictator. I agree with the dictator's note ,documented as a scribe. Any additional findings or plans will be noted.
--- NOTE | 2019-12-22 14:59 | P.PN ---
Subjective Progress Note Date: 12/22/19 Principal diagnosis: Shortness of breath On 12/22/2019 patient seen in follow-up on the general medical surgical floor. Patient is awake, oriented 3, doing better today, breathing easier, still has some lower extremity edema, cough with production of phlegm, has been afebrile, no chills. No complaints of chest pain, no hemoptysis. Patient is on empiric antibiotics form of doxycycline, he is on oral dose of Lasix, nebulized bronchodilators and IV steroids. Doing better. Patient does have a small wound on his right foot, right malleolus, for which the patient follows at the wound Center with Dr. Yin. Objective - Vital Signs Vital signs: Vital Signs Temp 98.2 F 12/22/19 07:00 Pulse 72 12/22/19 13:01 Resp 17 12/22/19 07:00 BP 122/76 12/22/19 07:00 Pulse Ox 93 L 12/22/19 09:21 Intake & Output 12/21/19 12/22/19 12/22/19 18:59 06:59 18:59 Output Total 250 Balance -250 Weight 78.925 kg Output: Urine 250 Other: # Voids 1 - Exam GENERAL EXAM: Alert, very pleasant, 79-year-old white male, 3 L of oxygen with pulse ox of 93% comfortable in no apparent distress. HEAD: Normocephalic/atraumatic. EYES: Normal reaction of pupils, equal size. Conjunctiva pink, sclera white. NOSE: Clear with pink turbinates. THROAT: No erythema or exudates. NECK: No masses, no JVD, no thyroid enlargement, no adenopathy. CHEST: No chest wall deformity. Symmetrical expansion. LUNGS: Equal air entry with no crackles, wheeze, rhonchi or dullness. CVS: Irregular rate and rhythm, normal S1 and S2, no gallops, no murmurs, no rubs ABDOMEN: Soft, nontender. No hepatosplenomegaly, normal bowel sounds, no guarding or rigidity. EXTREMITIES: No clubbing, 1+ lower extremity edema, no cyanosis, 2+ pulses and upper and lower extremities. Chronic right ankle wound MUSCULOSKELETAL: Muscle strength and tone normal. SPINE: No scoliosis or deformity SKIN: No rashes CENTRAL NERVOUS SYSTEM: Alert and oriented -3. No focal deficits, tone is normal in all 4 extremities. PSYCHIATRIC: Alert and oriented -3. Appropriate affect. Intact judgment and insight. - Labs CBC & Chem 7: 12/20/19 10:40 12/20/19 10:40 Labs: Abnormal Lab Results - Last 24 Hours (Table) 12/21/19 12/21/19 12/22/19 Range/Units 17:08 20:46 06:47 POC Glucose (mg/dL) 243 H 123 H 213 H (75-99) mg/dL 12/22/19 Range/Units 11:30 POC Glucose (mg/dL) 194 H (75-99) mg/dL Microbiology - Last 24 Hours (Table) 12/20/19 12:38 Blood Culture - Preliminary Blood No Growth after 48 hours Assessment and Plan Plan: Assessment: #1. Acute on chronic shortness of breath, multifactorial, in part related to underlying chronic obstructive pulmonary disease exacerbation, and component of mild fluid overload/right pleural effusion, and acute exacerbation of diastolic CHF #2. History of stage III/stage IV chronic obstructive pulmonary disease with an FEV1 of 35% of predicted #3. History of chronic and persistent atrial fibrillation on oral anticoagulation #4. GERD/reflux #5. Coronary artery disease previous bypass grafting #6. Hyperthyroidism #7. Chronic back pain #8. History of nicotine dependence #9. Chronic right foot/right ankle ulcer being [facility] by didn't call #10. History of MRSA infection in the ankle wound #11. History of osteoarthritis #12. Chronic back pain #13. Multiple orthopedic surgeries including right shoulder rotator cuff, bilateral hip replacement, carpal tunnel surgery on the right Plan: Continue with oral Lasix, antibiotics, nebulized bronchodilators and IV steroids, patient still has significant fluid overload, we'll increase his oral dose of Lasix to twice daily. Follow-up lab work in the morning with electrolytes and renal profile, continue oral anticoagulation, vital signs are s table I performed a history & physical examination of the patient and discussed their management with my nurse practitioner, Ele Brown. I reviewed the nurse practitioner's note and agree with the documented findings and plan of care. Lung sounds are positive for bibasilar crackles. The findings and the impression was discussed with the patient. I attest to the documentation by the nurse practitioner. Time with Patient: Less than 30
[2019-12-22 16:58] LABS: Glucose,Whole Blood 166 mg/dL (75-99)
[2019-12-22] MEDS: RIVAROXABAN 20 MG TAB PO SCH (17:42)
[2019-12-22] MEDS: ATORVASTATIN 40 MG TAB PO SCH (21:08)
[2019-12-22 21:24] LABS: Glucose,Whole Blood 302 mg/dL (75-99)
[2019-12-23] MEDS: methylPREDNISolone SOD SUCCI 40 MG/ML 1 ML VIAL IV SCH ×4 (01:41→17:44)
[2019-12-23 04:38] LABS: Hemoglobin A1C 6.7 % (4.0-6.0)
[2019-12-23 07:23] LABS: Glucose,Whole Blood 289 mg/dL (75-99)
[2019-12-23] MEDS: FUROSEMIDE 40 MG TAB PO SCH ×2 (07:32→20:54)
[2019-12-23] MEDS: GABAPENTIN 300 MG CAP PO SCH ×2 (07:32→20:54)
[2019-12-23] MEDS: DOCUSATE 100 MG CAP PO SCH ×2 (07:33→20:56)
[2019-12-23] MEDS: INSULIN ASPART (NovoLOG) 100 UNIT/ML VIAL SQ SCH ×4 (07:33→20:55)
[2019-12-23] MEDS: METOPROLOL TARTRATE 25 MG TAB PO SCH ×2 (07:33→20:54)
[2019-12-23] MEDS: MULTIVITAMINS, THERA 1 EACH TAB PO SCH (07:33)
[2019-12-23] MEDS: DOXYCYCLINE 100 MG CAP PO SCH ×2 (07:33→20:55)
[2019-12-23] MEDS: oxyCODONE-APAP 10-325MG 1 EACH TAB PO PRN (07:35)
[2019-12-23 08:09] LABS: Anisocytosis Slight; Basophils % (A) 0 %; Eosinophils % (A) 0 %; HCT 31.5 % (39.0-53.0); HGB 8.7 gm/dL (13.0-17.5); Hypochromasia Marked; Lymphocytes # (A) 0.3 k/uL (1.0-4.8); Lymphocytes % (A) 3 %; MCH 23.7 pg (25.0-35.0); MCHC 27.6 g/dL (31.0-37.0); MCV 86.1 fL (80.0-100.0); Mean Platelet Volume 7.8; Monocytes # (A) 0.4 k/uL (0-1.0); Monocytes % (A) 5 %; Neutrophils # (A) 8.8 k/uL (1.3-7.7); Neutrophils % (A) 92 %; Platelet Count 231 k/uL (150-450); RBC 3.66 m/uL (4.30-5.90); RDW 18.1 % (11.5-15.5); WBC 9.5 k/uL (3.8-10.6)
[2019-12-23] MEDS: BUDESONIDE 1 MG/2 ML NEBU INHALATION SCH ×2 (08:26→20:30)
[2019-12-23] MEDS: FORMOTEROL FUMARATE 20 MCG/2 ML NEBU INHALATION SCH ×2 (08:26→20:30)
[2019-12-23] MEDS: IPRATROPIUM-ALBUTEROL 3 ML NEB INHALATION SCH ×4 (08:26→20:30)
[2019-12-23 12:07] LABS: Glucose,Whole Blood 129 mg/dL (75-99)
[2019-12-23] MEDS: SENNOSIDES-DOCUSATE SODIUM 1 EACH TAB PO SCH ×2 (12:09→20:54)
[2019-12-23 12:22] LABS: African American GFR (CKD) 92.5 (60.0-200.0); Anion Gap 7.9 mmol/L (4.00-12.00); BUN/Creat Ratio 36.67 Ratio (12.00-20.00); Calcium 8.5 mg/dL (8.7-10.3); Carbon Dioxide 35.1 mmol/L (21.6-31.8); Non-African American GFR(CKD) 79.8 (60.0-200.0); Potassium 3.7 mmol/L (3.5-5.5)
--- NOTE | 2019-12-23 14:18 | P.DS ---
Providers Date of admission: 12/20/19 12:58 Expected date of discharge: 12/23/19 Attending physician: Adams Abraham Consults: 12/20/19 12:14 Consult Physician Routine Consulting Provider: Jame Herrera Consult Reason/Comments: COPD, pneumonia Do you want consulting provider notified?: Yes Primary care physician: Adams Abraham Hospital Course: Final Diagnoses: Acute on chronic hypoxic, hypercapnic respiratory failure secondary to Acute COPD exacerbation, acute on chronic diastolic CHF Acute CHF exacerbation, diastolic dysfunction, mild secondary to pleural effusions Severe pulmonary hypertension Chest pain, atypical ,acute coronary syndrome ruled out, troponins 2 negative, reproducible, symptoms suggestive of muscloskeletal Chronic right medial ankle ulcer Anemia of chronic disease Gastroesophageal reflux disease Chronic Paroxysmal atrial fibrillation, currently sinus rhythm Hypothyroidism Osteoarthritis Ongoing Nicotine dependence Chronic right foot drop secondary to chronic back surgery Recent falls secondary to the above CAD, history of [place], CABG Hypertension Borderline diabetes Chronic back pain Hospital course:This is an 79-year-old gentleman admitted with acute COPD exacerbation and multiple other medical issues. Maintained on nebulized bronchodilators, IV steroids, doxycycline with breathing improving. Evaluated by pulmonary with recommendations noted and appreciated. Denies chest pain, palpitations. Afebrile. Significant clinical improvement. Cleared by pulmonary for discharge. Patient is being discharged home in a stable condition with guarded prognosis. The impression and plan of care has been dictated as directed. : I performed a history and examination of this patient, discussed the same with the dictator. I agree with the dictator's note ,documented as a scribe. Any additional findings or plans will be noted. Patient Condition at Discharge: Stable Plan - Discharge Summary New Discharge Prescriptions: New predniSONE 10 mg PO DIRECTED #30 tab Sennosides-Docusate Sodium [Senokot-S] 2 each PO BID tab Doxycycline [Vibramycin] 100 mg PO BID #10 cap Continue Metoprolol Tartrate [Lopressor] 25 mg PO BID Rivaroxaban [Xarelto] 20 mg PO PC-SUPPER Furosemide 40 mg PO DAILY Gabapentin 600 mg PO BID Fluticasone/Salmeterol [Advair 250-50 Diskus] 1 puff INHALATION RT-BID Tiotropium 18 Mcg/Puff [Spiriva] 1 puff INHALATION RT-DAILY Albuterol Nebulized [Ventolin Nebulized] 2.5 mg INHALATION RT-TID oxyCODONE HCL/ACETAMINOPHEN [Percocet 10-325 mg] 1 tab PO TID PRN PRN Reason: Pain Atorvastatin [Lipitor] 40 mg PO HS Multivitamin [Men's Multi-Vitamin] 1 each PO DAILY Albuterol Sulfate [Ventolin HFA] 2 puff INHALATION RT-QID PRN PRN Reason: Shortness Of Breath Ipratropium-Albuterol Nebulize [Duoneb 0.5 mg-3 mg/3 ml Soln] 3 ml INHALATION RT-QID Docusate [Colace] 100 mg PO BID cap tiZANidine HCL [Zanaflex] 4 mg PO BID PRN PRN Reason: Muscle Spasm Discontinued predniSONE See Taper PO DAILY Discharge Medication List Metoprolol Tartrate [Lopressor] 25 mg PO BID 08/06/13 [History] Rivaroxaban [Xarelto] 20 mg PO PC-SUPPER 08/06/13 [History] Furosemide 40 mg PO DAILY 08/09/13 [History] Gabapentin 600 mg PO BID 06/24/14 [History] Fluticasone/Salmeterol [Advair 250-50 Diskus] 1 puff INHALATION RT-BID 08/18/14 [History] Tiotropium 18 Mcg/Puff [Spiriva] 1 puff INHALATION RT-DAILY 08/18/14 [History] Albuterol Nebulized [Ventolin Nebulized] 2.5 mg INHALATION RT-TID 08/09/16 [History] oxyCODONE HCL/ACETAMINOPHEN [Percocet 10-325 mg] 1 tab PO TID PRN 08/09/16 [History] Atorvastatin [Lipitor] 40 mg PO HS 01/20/18 [History] Multivitamin [Men's Multi-Vitamin] 1 each PO DAILY 01/20/18 [History] Albuterol Sulfate [Ventolin HFA] 2 puff INHALATION RT-QID PRN 11/22/19 [History] Ipratropium-Albuterol Nebulize [Duoneb 0.5 mg-3 mg/3 ml Soln] 3 ml INHALATION RT-QID 11/22/19 [History] Docusate [Colace] 100 mg PO BID cap 11/25/19 [Rx] tiZANidine HCL [Zanaflex] 4 mg PO BID PRN 12/20/19 [History] Doxycycline [Vibramycin] 100 mg PO BID #10 cap 10/01/20 [Rx] Sennosides-Docusate Sodium [Senokot-S] 2 each PO BID tab 12/23/19 [Rx] predniSONE 10 mg PO DIRECTED #30 tab 12/23/19 [Rx] Follow up Appointment(s)/Referral(s): Adams Abraham DO [Primary Care Provider] - 3 Days Ambulatory/Diagnostic Orders: Complete Blood Count w/diff [LAB.AMB] Time Frame: 3 Days, Location: None Selected Activity/Diet/Wound Care/Special Instructions: Confirm follow-up with pulmonary prior to discharge. Portable Oxygen Concentrator ordered through [facility]. Call [facility] to follow: #[phone].
--- NOTE | 2019-12-23 14:34 | P.PN ---
Subjective Progress Note Date: 12/23/19 Principal diagnosis: Shortness of breath On 12/22/2019 patient seen in follow-up on the general medical surgical floor. Patient is awake, oriented 3, doing better today, breathing easier, still has some lower extremity edema, cough with production of phlegm, has been afebrile, no chills. No complaints of chest pain, no hemoptysis. Patient is on empiric antibiotics form of doxycycline, he is on oral dose of Lasix, nebulized bronchodilators and IV steroids. Doing better. Patient does have a small wound on his right foot, right malleolus, for which the patient follows at the wound Center with Dr. Yin. On 12/23/2019 patient seen in follow-up on the general medical surgical floor, he is doing better, breathing easier, no acute events overnight, no cough or congestion, complaints of chest pain or hemoptysis, patient is on 3 L of oxygen and the pulse ox of 95%, no fever or chills, blood pressure stable, breathing seems to be comfortable. Chest x-ray showed COPD with right basilar infiltrate and small pleural effusion possible mild venous congestion. Patient is on oral dose of Lasix. Patient is on a combination of empiric antibiotics, IV steroids, and nebulized bronchodilators. Blood cultures show no growth, today's labs have been reviewed. He is tolerating ambulation about the room, tolerating activity well Objective - Vital Signs Vital signs: Vital Signs Temp 98.3 F 12/23/19 07:19 Pulse 90 12/23/19 11:44 Resp 16 12/23/19 09:00 BP 132/76 12/23/19 07:19 Pulse Ox 95 12/23/19 02:45 Intake & Output 12/22/19 12/23/19 12/23/19 18:59 06:59 18:59 Intake Total 420 Balance 420 Intake: Oral 420 Other: Voiding Method Urinal Urinal Diaper # Voids 2 1 2 - Exam GENERAL EXAM: Alert, very pleasant, 79-year-old white male, 3 L of oxygen with pulse ox of 93% comfortable in no apparent distress. HEAD: Normocephalic/atraumatic. EYES: Normal reaction of pupils, equal size. Conjunctiva pink, sclera white. NOSE: Clear with pink turbinates. THROAT: No erythema or exudates. NECK: No masses, no JVD, no thyroid enlargement, no adenopathy. CHEST: No chest wall deformity. Symmetrical expansion. LUNGS: Equal air entry with no crackles, wheeze, rhonchi or dullness. CVS: Irregular rate and rhythm, normal S1 and S2, no gallops, no murmurs, no rubs ABDOMEN: Soft, nontender. No hepatosplenomegaly, normal bowel sounds, no guarding or rigidity. EXTREMITIES: No clubbing, 1+ lower extremity edema, no cyanosis, 2+ pulses and upper and lower extremities. Chronic right ankle wound MUSCULOSKELETAL: Muscle strength and tone normal. SPINE: No scoliosis or deformity SKIN: No rashes CENTRAL NERVOUS SYSTEM: Alert and oriented -3. No focal deficits, tone is normal in all 4 extremities. PSYCHIATRIC: Alert and oriented -3. Appropriate affect. Intact judgment and insight. - Labs CBC & Chem 7: 12/23/19 07:51 12/23/19 07:51 Labs: Abnormal Lab Results - Last 24 Hours (Table) 12/20/19 12/22/19 12/22/19 Range/Units 10:40 16:51 21:23 RBC (4.30-5.90) m/uL Hgb (13.0-17.5) gm/dL Hct (39.0-53.0) % MCH (25.0-35.0) pg MCHC (31.0-37.0) g/dL RDW (11.5-15.5) % Neutrophils # (1.3-7.7) k/uL Lymphocytes # (1.0-4.8) k/uL Carbon Dioxide (21.6-31.8) mmol/L BUN (9.0-27.0) mg/dL BUN/Creatinine Ratio (12.00-20.00) Ratio Glucose (70-110) mg/dL POC Glucose (mg/dL) 166 H 302 H (75-99) mg/dL Hemoglobin A1c 6.7 H (4.0-6.0) % Calcium (8.7-10.3) mg/dL 12/23/19 12/23/19 12/23/19 Range/Units 07:18 07:51 07:51 RBC 3.66 L (4.30-5.90) m/uL Hgb 8.7 L (13.0-17.5) gm/dL Hct 31.5 L (39.0-53.0) % MCH 23.7 L (25.0-35.0) pg MCHC 27.6 L (31.0-37.0) g/dL RDW 18.1 H (11.5-15.5) % Neutrophils # 8.8 H (1.3-7.7) k/uL Lymphocytes # 0.3 L (1.0-4.8) k/uL Carbon Dioxide 35.1 H (21.6-31.8) mmol/L BUN 33.0 H (9.0-27.0) mg/dL BUN/Creatinine Ratio 36.67 H (12.00-20.00) Ratio Glucose 211 H (70-110) mg/dL POC Glucose (mg/dL) 289 H (75-99) mg/dL Hemoglobin A1c (4.0-6.0) % Calcium 8.5 L (8.7-10.3) mg/dL 12/23/19 Range/Units 12:05 RBC (4.30-5.90) m/uL Hgb (13.0-17.5) gm/dL Hct (39.0-53.0) % MCH (25.0-35.0) pg MCHC (31.0-37.0) g/dL RDW (11.5-15.5) % Neutrophils # (1.3-7.7) k/uL Lymphocytes # (1.0-4.8) k/uL Carbon Dioxide (21.6-31.8) mmol/L BUN (9.0-27.0) mg/dL BUN/Creatinine Ratio (12.00-20.00) Ratio Glucose (70-110) mg/dL POC Glucose (mg/dL) 129 H (75-99) mg/dL Hemoglobin A1c (4.0-6.0) % Calcium (8.7-10.3) mg/dL Microbiology - Last 24 Hours (Table) 12/20/19 12:38 Blood Culture - Preliminary Blood No Growth after 48 hours Assessment and Plan Plan: Assessment: #1. Acute on chronic shortness of breath, multifactorial, in part related to underlying chronic obstructive pulmonary disease exacerbation, and component of mild fluid overload/right pleural effusion, and acute exacerbation of diastolic CHF #2. History of stage III/stage IV chronic obstructive pulmonary disease with an FEV1 of 35% of predicted #3. History of chronic and persistent atrial fibrillation on oral anticoagulation #4. GERD/reflux #5. Coronary artery disease previous bypass grafting #6. Hyperthyroidism #7. Chronic back pain #8. History of nicotine dependence #9. Chronic right foot/right ankle ulcer being [facility] by DrBrandon didn't call #10. History of MRSA infection in the ankle wound #11. History of osteoarthritis #12. Chronic back pain #13. Multiple orthopedic surgeries including right shoulder rotator cuff, bilateral hip replacement, carpal tunnel surgery on the right Plan: Patient is doing well, breathing easier, no acute events overnight, continue with oral dose of Lasix, nebulized bronchodilators and antibiotics, vital signs are stable, patient is tolerating ambulation, from pulmonary perspective patient is close to his baseline. Possible discharge home in the next 24 hours. Patient will need outpatient follow-up with Dr. Herrera any office in 7-10 days I performed a history & physical examination of the patient and discussed their management with my nurse practitioner, Ele Brown. I reviewed the nurse practitioner's note and agree with the documented findings and plan of care. Lung sounds are positive for bibasilar crackles. The findings and the impression was discussed with the patient. I attest to the documentation by the nurse practitioner. Time with Patient: Less than 30
[2019-12-23 17:10] LABS: Glucose,Whole Blood 226 mg/dL (75-99)
[2019-12-23] MEDS: RIVAROXABAN 20 MG TAB PO SCH (17:44)
[2019-12-23 20:41] LABS: Glucose,Whole Blood 179 mg/dL (75-99)
[2019-12-23] MEDS: ATORVASTATIN 40 MG TAB PO SCH (20:54)
[2019-12-24] MEDS: methylPREDNISolone SOD SUCCI 40 MG/ML 1 ML VIAL IV SCH ×2 (00:29→05:37)
[2019-12-24 06:54] LABS: Glucose,Whole Blood 177 mg/dL (75-99)
[2019-12-24] MEDS: DOCUSATE 100 MG CAP PO SCH (07:29)
[2019-12-24] MEDS: MULTIVITAMINS, THERA 1 EACH TAB PO SCH (07:29)
[2019-12-24] MEDS: METOPROLOL TARTRATE 25 MG TAB PO SCH (07:29)
[2019-12-24] MEDS: DOXYCYCLINE 100 MG CAP PO SCH (07:29)
[2019-12-24] MEDS: FUROSEMIDE 40 MG TAB PO SCH (07:29)
[2019-12-24] MEDS: SENNOSIDES-DOCUSATE SODIUM 1 EACH TAB PO SCH (07:29)
[2019-12-24] MEDS: INSULIN ASPART (NovoLOG) 100 UNIT/ML VIAL SQ SCH (07:30)
[2019-12-24] MEDS: oxyCODONE-APAP 10-325MG 1 EACH TAB PO PRN (07:46)
[2019-12-24] MEDS: IPRATROPIUM-ALBUTEROL 3 ML NEB INHALATION SCH (08:46)
[2019-12-24] MEDS: BUDESONIDE 1 MG/2 ML NEBU INHALATION SCH (08:46)
[2019-12-24] MEDS: FORMOTEROL FUMARATE 20 MCG/2 ML NEBU INHALATION SCH (08:46)
[2019-12-24 09:03] VITALS: BP 117/61; RESP 17; TEMP 98.2
[2019-12-24 09:17] VITALS: PULSE 112
[2019-12-24] MEDS: GABAPENTIN 300 MG CAP PO SCH (11:23)
[2019-12-24 11:36] LABS: Glucose,Whole Blood 174 mg/dL (75-99)
--- NOTE | 2019-12-24 13:50 | P.PN ---
Subjective Progress Note Date: 12/24/19 Principal diagnosis: Shortness of breath On 12/22/2019 patient seen in follow-up on the general medical surgical floor. Patient is awake, oriented 3, doing better today, breathing easier, still has some lower extremity edema, cough with production of phlegm, has been afebrile, no chills. No complaints of chest pain, no hemoptysis. Patient is on empiric antibiotics form of doxycycline, he is on oral dose of Lasix, nebulized bronchodilators and IV steroids. Doing better. Patient does have a small wound on his right foot, right malleolus, for which the patient follows at the wound Center with Dr. Yin. On 12/23/2019 patient seen in follow-up on the general medical surgical floor, he is doing better, breathing easier, no acute events overnight, no cough or congestion, complaints of chest pain or hemoptysis, patient is on 3 L of oxygen and the pulse ox of 95%, no fever or chills, blood pressure stable, breathing seems to be comfortable. Chest x-ray showed COPD with right basilar infiltrate and small pleural effusion possible mild venous congestion. Patient is on oral dose of Lasix. Patient is on a combination of empiric antibiotics, IV steroids, and nebulized bronchodilators. Blood cultures show no growth, today's labs have been reviewed. He is tolerating ambulation about the room, tolerating activity well On 12/24/2019 patient seen in follow-up on medical surgical floor, he continues to improve, his had no acute events overnight, no fever or chills, hemodynamically stable, his been ambulating to the bathroom, tolerating activity very well, on 3 L oxygen. His pulse ox of 96%, complaints of chest pain, no cough or congestion. Remains pulse ox was 79%. Feeling better overall, no new labs today. he has been treated with a combination of empiric antibiotics, IV steroids and nebulized bronchodilators, blood cultures have shown no growth. Vital signs have remained stable Objective - Vital Signs Vital signs: Vital Signs Temp 98.2 F 12/24/19 07:00 Pulse 112 H 12/24/19 09:10 Resp 17 12/24/19 07:00 BP 117/61 12/24/19 07:00 Pulse Ox 98 12/24/19 07:00 Intake & Output 10/04/1212/24/19 12/24/19 18:59 06:59 18:59 Intake Total 600 Balance 600 Intake: Oral 600 Other: Voiding Method Urinal Urinal # Voids 2 3 # Bowel Movements 1 - Exam GENERAL EXAM: Alert, very pleasant, 79-year-old white male, 3 L of oxygen with pulse ox of 93% comfortable in no apparent distress. HEAD: Normocephalic/atraumatic. EYES: Normal reaction of pupils, equal size. Conjunctiva pink, sclera white. NOSE: Clear with pink turbinates. THROAT: No erythema or exudates. NECK: No masses, no JVD, no thyroid enlargement, no adenopathy. CHEST: No chest wall deformity. Symmetrical expansion. LUNGS: Equal air entry with no crackles, wheeze, rhonchi or dullness. CVS: Irregular rate and rhythm, normal S1 and S2, no gallops, no murmurs, no rubs ABDOMEN: Soft, nontender. No hepatosplenomegaly, normal bowel sounds, no guarding or rigidity. EXTREMITIES: No clubbing, 1+ lower extremity edema, no cyanosis, 2+ pulses and upper and lower extremities. Chronic right ankle wound MUSCULOSKELETAL: Muscle strength and tone normal. SPINE: No scoliosis or deformity SKIN: No rashes CENTRAL NERVOUS SYSTEM: Alert and oriented -3. No focal deficits, tone is normal in all 4 extremities. PSYCHIATRIC: Alert and oriented -3. Appropriate affect. Intact judgment and insight. - Labs CBC & Chem 7: 12/23/19 07:51 12/23/19 07:51 Labs: Abnormal Lab Results - Last 24 Hours (Table) 12/23/19 12/23/19 12/24/19 Range/Units 17:07 20:38 06:47 POC Glucose (mg/dL) 226 H 179 H 177 H (75-99) mg/dL 12/24/19 Range/Units 11:34 POC Glucose (mg/dL) 174 H (75-99) mg/dL Microbiology - Last 24 Hours (Table) 12/20/19 12:38 Blood Culture - Preliminary Blood No Growth after 72 hours Assessment and Plan Plan: Assessment: #1. Acute on chronic shortness of breath, multifactorial, in part related to underlying chronic obstructive pulmonary disease exacerbation, and component of mild fluid overload/right pleural effusion, and acute exacerbation of diastolic CHF #2. History of stage III/stage IV chronic obstructive pulmonary disease with an FEV1 of 35% of predicted #3. History of chronic and persistent atrial fibrillation on oral anticoagulation #4. GERD/reflux #5. Coronary artery disease previous bypass grafting #6. Hyperthyroidism #7. Chronic back pain #8. History of nicotine dependence #9. Chronic right foot/right ankle ulcer being followed [facility] by didn't call #10. History of MRSA infection in the ankle wound #11. History of osteoarthritis #12. Chronic back pain #13. Multiple orthopedic surgeries including right shoulder rotator cuff, bilateral hip replacement, carpal tunnel surgery on the right Plan: Patient continues to improve, tolerating ambulation, no acute events overnight, patient does qualify for home oxygen, increase activity as tolerated, his been treated with antibiotics, IV steroids and nebulized bronchodilators, improved, discharge is pending home today, follow up with Dr. Herrera in 7-10 days I performed a history & physical examination of the patient and discussed their management with my nurse practitioner, Ele Brown. I reviewed the nurse practitioner's note and agree with the documented findings and plan of care. Lung sounds are positive for bibasilar crackles. The findings and the impression was discussed with the patient. I attest to the documentation by the nurse practitioner. Time with Patient: Less than 30
== END 2019-12-24 12:22 | disposition home or self-care (01) | DRG 190 ==
LOC: EC 10:10 → 4SSUR 12:58
PROVIDERS: ADMIT Family Medicine; ATTEND Family Medicine
DX: J44.1 Chronic obstructive pulmonary disease with (acute) exacerbation (principal); J96.21 Acute and chronic respiratory failure with hypoxia; J96.22 Acute and chronic respiratory failure with hypercapnia; I50.33 Acute on chronic diastolic (congestive) heart failure; J98.11 Atelectasis; I27.23 Pulmonary hypertension due to lung diseases and hypoxia; L89.519 Pressure ulcer of right ankle, unspecified stage; D63.8 Anemia in other chronic diseases classified elsewhere; I11.0 Hypertensive heart disease with heart failure; I48.0 Paroxysmal atrial fibrillation; I25.10 Atherosclerotic heart disease of native coronary artery without angina pectoris; G89.29 Other chronic pain; M54.9 Dorsalgia, unspecified; E03.9 Hypothyroidism, unspecified; I45.10 Unspecified right bundle-branch block; K21.9 Gastro-esophageal reflux disease without esophagitis; M21.371 Foot drop, right foot; I25.2 Old myocardial infarction; N63.20 Unspecified lump in the left breast, unspecified quadrant; R29.6 Repeated falls; R73.03 Prediabetes; M19.90 Unspecified osteoarthritis, unspecified site; Z79.01 Long term (current) use of anticoagulants; Z79.51 Long term (current) use of inhaled steroids; Z79.52 Long term (current) use of systemic steroids; Z79.899 Other long term (current) drug therapy; Z87.891 Personal history of nicotine dependence; Z71.6 Tobacco abuse counseling; Z87.39 Personal history of other diseases of the musculoskeletal system and connective tissue; Z86.010 Personal history of colon polyps; Z86.14 Personal history of Methicillin resistant Staphylococcus aureus infection; Z87.01 Personal history of pneumonia (recurrent); Z95.1 Presence of aortocoronary bypass graft; Z96.643 Presence of artificial hip joint, bilateral; Z87.2 Personal history of diseases of the skin and subcutaneous tissue; Z87.19 Personal history of other diseases of the digestive system; Z98.890 Other specified postprocedural states; Z80.9 Family history of malignant neoplasm, unspecified
CPT/HCPCS: 36415; 71046; 80048; 80053; 83036; 83605; 83735; 83880; 84484; 85025; 85610; 85730; 87040; 93005; 94640; 94760; 96365; 96375; 96376; 99285

== ENCOUNTER → 2019-12-31 | Outpatient (CLI) | payer MEDICARE ==
--- NOTE | 2019-12-31 15:51 | XR ---
Left femur and left hip HISTORY: Left leg and hip pain 2 views of the left hip and frontal lateral views of the left femur on a total of 6 images. Patient is status post left hip arthroplasty. There is anatomic alignment. Bone mineralization is red uced. No fracture or dislocation is evident. Marked osteoarthritic changes noted in the left knee. Va scular calcifications are present within the soft tissues. There is some lucency present adjacent to the femoral component seen on the left hip view. IMPRESSION: Correlate for particle disease of the hip, hip loosening
== END | disposition home or self-care (01) ==
LOC: RADXRMAIN 14:28
PROVIDERS: ATTEND Family Medicine
DX: M25.552 Pain in left hip (principal); M79.652 Pain in left thigh
CPT/HCPCS: 73502

== ENCOUNTER 2020-01-03 13:32 | Emergency (ER) | payer MEDICARE ==
--- NOTE | 2020-01-03 14:06 | ED ---
General Adult HPI - General Chief complaint: Recheck/Abnormal Lab/Rx Stated complaint: Sent by Visiting Nurses Time Seen by Provider: 01/03/20 13:58 Source: patient, family, RN notes reviewed, old records reviewed (X-rays reviewed) Mode of arrival: wheelchair Limitations: no limitations - History of Present Illness Initial comments: Patient is a pleasant 79-year-old male presenting to the emergency Department with complaints of left leg swelling. Patient did have a fall 3 weeks ago. Patient did sustain a bruise to his left hip and still has discomfort there. Patient did have x-rays done last week there were reportedly negative. The past few days patient has had some increased swelling left lower leg. Patient does have some calf discomfort. Patient does have some redness to the front of the leg. Leg is a little bit tender. Patient does have some chronic diffuse swelling and does take Lasix for that. - Related Data Home Medications Medication Instructions Recorded Confirmed Metoprolol Tartrate [Lopressor] 25 mg PO BID 08/06/13 01/03/20 Rivaroxaban [Xarelto] 20 mg PO PC-SUPPER 08/06/13 01/03/20 Furosemide 40 mg PO DAILY 08/09/13 01/03/20 Gabapentin 600 mg PO BID 06/24/14 01/03/20 Fluticasone/Salmeterol [Advair 1 puff INHALATION RT-BID 08/18/14 01/03/20 250-50 Diskus] Tiotropium 18 Mcg/Puff [Spiriva] 1 cap INHALATION RT-DAILY 08/18/14 01/03/20 Albuterol Nebulized [Ventolin 2.5 mg INHALATION RT-TID 08/09/16 01/03/20 Nebulized] oxyCODONE HCL/ACETAMINOPHEN 1 tab PO TID PRN 08/09/16 01/03/20 [Percocet 10-325 mg] Atorvastatin [Lipitor] 40 mg PO HS 01/20/18 01/03/20 Multivitamin [Men's Multi-Vitamin] 1 tab PO DAILY 01/20/18 01/03/20 Albuterol Sulfate [Ventolin HFA] 2 puff INHALATION RT-QID PRN 11/22/19 01/03/20 Ipratropium-Albuterol Nebulize 3 ml INHALATION RT-QID 11/22/19 01/03/20 [Duoneb 0.5 mg-3 mg/3 ml Soln] tiZANidine HCL [Zanaflex] 4 mg PO BID PRN 12/20/19 01/03/20 Sennosides-Docusate Sodium 2 tab PO BID 01/03/20 01/03/20 [Senokot-S] predniSONE See Taper PO DIRECTED 01/03/20 01/03/20 Previous Rx's Medication Instructions Recorded Docusate [Colace] 100 mg PO BID cap 11/25/19 Cephalexin [Keflex] 500 mg PO QID #40 cap 01/03/20 Allergies Allergy/AdvReac Type Severity Reaction Status Date / Time No Known Allergies Allergy Verified 01/03/20 15:53 Review of Systems ROS Statement: Those systems with pertinent positive or pertinent negative responses have been documented in the HPI. ROS Other: All systems not noted in ROS Statement are negative. Constitutional: Denies: fever Eyes: Denies: eye pain ENT: Denies: ear pain Respiratory: Denies: dyspnea Cardiovascular: Denies: chest pain Endocrine: Denies: fatigue Gastrointestinal: Denies: abdominal pain, vomiting Genitourinary: Denies: dysuria Musculoskeletal: Reports: as per HPI. Denies: back pain Skin: Reports: as per HPI Neurological: Denies: weakness Past Medical History Past Medical History: Atrial Fibrillation, COPD, GERD/Reflux, Hypertension, Myocardial Infarction ([place]), Musculoskeletal Disorder, Osteoarthritis ([place]), Pneumonia, Thyroid Disorder Additional Past Medical History / Comment(s): left breast mass HX OF COLON POLYPS. HX RIGHT BREAST MASS. O2 AT 2L NC @HS AND PRN. Hx Aspiration Pneumonia R/T "FLAPPER." HX OF THYROID PROBLEM - NO TX NOW. CHRONIC BACK PAIN, RUPESH LEG NT. RT FOOT/ANKLE EDEMA, WEARS TEDS. 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 CABG 1987 X2. RUPESH SCOPES KNEES. Rupesh Hip Replacement, [facility] [employer]. Rt Shoulder Rotator Cuff. BACK X2. HX OF EPIDURALS FOR PAIN. Past Anesthesia/Blood Transfusion Reactions: No Reported Reaction Past Psychological History: No Psychological Hx Reported Smoking Status: Former smoker Past Alcohol Use History: None Reported Past Drug Use History: None Reported - Past Family History Daughter(s) Family Medical History: Cancer Father History Unknown: Yes Mother Family Medical History: No Reported History General Exam Limitations: no limitations General appearance: alert, in no apparent distress Head exam: Present: atraumatic Eye exam: Present: normal appearance Neck exam: Present: normal inspection Respiratory exam: Present: normal lung sounds bilaterally Cardiovascular Exam: Present: regular rate, normal rhythm GI/Abdominal exam: Present: soft. Absent: tenderness Extremities exam: Present: pedal edema, calf tenderness (Left-sided), other (Left lateral upper thigh with ecchymosis and tenderness) Neurological exam: Present: alert. Absent: motor sensory deficit Psychiatric exam: Present: normal affect, normal mood Skin exam: Present: erythema (Mild erythema left lower leg) Course Vital Signs 01/03/20 01/03/20 13:33 15:12 Temperature 98.1 F Pulse Rate 61 78 Respiratory 18 18 Rate Blood Pressure 84/48 95/56 O2 Sat by Pulse 92 L 98 Oximetry Medical Decision Making - Medical Decision Making patient reevaluated and resting comfortably in bed. Patient and family updated on results and need for follow-up. - Radiology Data Radiology results: report reviewed (Ultrasound negative for DVT), image reviewed (Chest x-ray shows chronic changes) Disposition Clinical Impression: Cellulitis of left leg Disposition: HOME SELF-CARE Condition: Stable Instructions (If sedation given, give patient instructions): Cellulitis (ED) Additional Instructions: Please follow-up with primary care physician in the next day or 2 for recheck. Return for difficulty in breathing, chest pain, increased swelling, redness or fevers, worsening symptoms or other concerns. Prescription sent to [facility] pharmacy Prescriptions: Cephalexin [Keflex] 500 mg PO QID #40 cap Is patient prescribed a controlled substance at d/c from ED?: No Referrals: Adams Abraham DO [Primary Care Provider] - 1-2 days Time of Disposition: 16:14
--- NOTE | 2020-01-03 15:04 | US ---
EXAMINATION TYPE: US venous doppler duplex LE LT DATE OF EXAM: 01/03/2020 2:30 PM COMPARISON: CLINICAL HISTORY: pain and swelling. Swelling. Bruising. On blood thinners. No hx DVT. SIDE PERFORMED: Left TECHNIQUE: The lower extremity deep venous system is examined utilizing real time linear array sonog luis with graded compression, doppler sonography and color-flow sonography. VESSELS IMAGED: External Iliac Vein (EIV) Common Femoral Vein Deep Femoral Vein Greater Saphenous Vein * Femoral Vein Popliteal Vein Small Saphenous Vein * Proximal Calf Veins (* superficial vessels) Left Leg: There is normal flow, compressibility, vascular waveforms. IMPRESSION: Negative for deep venous thrombosis of the left lower extremity.
--- NOTE | 2020-01-03 15:39 | XR ---
EXAMINATION TYPE: XR chest 2V DATE OF EXAM: 01/03/2020 CLINICAL HISTORY: Cough TECHNIQUE: Frontal and lateral views of the chest are obtained. COMPARISON: 12/12/2019 chest radiograph FINDINGS: Sternotomy wires. Redemonstrated cardiomegaly. Mesial silhouette is normal. Lungs are hype rinflated with interstitial coarsening. Small right pleural effusion redemonstrated. No pneumothorax. Degenerative changes of the shoulders and spine. IMPRESSION: Cardiomegaly, chronic interstitial changes, and small right pleural effusion appears unch anged versus 12/20/2019 comparison.
[2020-01-03 16:28] VITALS: PULSE 76; RESP 14; TEMP 97.9
[2020-01-03 16:43] VITALS: BP 105/63
== END 2020-01-03 16:40 | disposition home or self-care (01) ==
LOC: EC 13:32
DX: L03.116 Cellulitis of left lower limb (principal); I48.91 Unspecified atrial fibrillation; J44.9 Chronic obstructive pulmonary disease, unspecified; I10 Essential (primary) hypertension; I25.2 Old myocardial infarction; K21.9 Gastro-esophageal reflux disease without esophagitis; Z79.01 Long term (current) use of anticoagulants; Z79.51 Long term (current) use of inhaled steroids; Z79.899 Other long term (current) drug therapy; Z95.1 Presence of aortocoronary bypass graft; Z96.643 Presence of artificial hip joint, bilateral; Z87.891 Personal history of nicotine dependence
CPT/HCPCS: 71046; 99284

== ENCOUNTER 2020-01-07 15:59 | Inpatient (IN) | payer MEDICARE ==
[2020-01-07] MEDS ORDERED: VANCOMYCIN IV PER PHARMACY 1 EACH MISC MISCELLANE PRN (16:34)
[2020-01-07] MEDS ORDERED: cefTRIAXone IN SWFI 1,000 MG/10 ML SYRINGE IVP STA (16:34)
[2020-01-07] MEDS ORDERED: VANCOMYCIN 1,500 MG in SODIUM CHLORIDE 0.9% 250 ML IVPB ONE (16:45)
--- NOTE | 2020-01-07 17:27 | US ---
EXAMINATION TYPE: US venous doppler duplex LE BI DATE OF EXAM: 01/07/2020 5:22 PM COMPARISON: 01/03/2020 CLINICAL HISTORY: dvt. SIDE PERFORMED: Bilateral TECHNIQUE: The lower extremity deep venous system is examined utilizing real time linear array sonog luis with graded compression, doppler sonography and color-flow sonography. VESSELS IMAGED: External Iliac Vein (EIV) Common Femoral Vein Deep Femoral Vein Greater Saphenous Vein * Femoral Vein Popliteal Vein Small Saphenous Vein * Proximal Calf Veins (* superficial vessels) Right Leg: Negative for DVT Left Leg: Negative for DVT IMPRESSION: No evidence of deep vein thrombosis in both legs.
[2020-01-07 17:36] LABS: INR 1.1 (<1.2); Partial Thromboplastin Time 29.9 sec (22.0-30.0); Prothrombin Time 10.8 sec (9.0-12.0)
[2020-01-07 17:49] LABS: Anisocytosis Slight; Basophils % (A) 0 %; Eosinophils # (A) 0.1 k/uL (0-0.7); Eosinophils % (A) 1 %; HCT 28.5 % (39.0-53.0); HGB 8.2 gm/dL (13.0-17.5); Hypochromasia Marked; Lymphocytes % (A) 13 %; MCH 25.1 pg (25.0-35.0); MCHC 28.9 g/dL (31.0-37.0); Mean Platelet Volume 8.3; Monocytes # (A) 0.7 k/uL (0-1.0); Monocytes % (A) 8 %; Neutrophils # (A) 6.3 k/uL (1.3-7.7); Neutrophils % (A) 76 %; Platelet Count 139 k/uL (150-450); RBC 3.28 m/uL (4.30-5.90); RDW 18.5 % (11.5-15.5); WBC 8.3 k/uL (3.8-10.6)
[2020-01-07 18:05] LABS: ALT 35 U/L (4-49); AST 34 U/L (17-59); African American GFR (CKD) >90 (>60 ml/min/1.73 sqM); Albumin 3.2 g/dL (3.5-5.0); Alkaline Phosphatase 74 U/L (38-126); Anion Gap 4 mmol/L; Blood Urea Nitrogen 21 mg/dL (9-20); C Reactive Protein 78.7 mg/L (<10.0); Calcium 8.7 mg/dL (8.4-10.2); Carbon Dioxide 38 mmol/L (22-30); Chloride 99 mmol/L (98-107); Glucose 96 mg/dL (74-99); Magnesium 1.9 mg/dL (1.6-2.3); Non-African American GFR(CKD) >90 (>60 ml/min/1.73 sqM); Potassium 4.4 mmol/L (3.5-5.1); Sodium 141 mmol/L (137-145); Total Bilirubin 0.8 mg/dL (0.2-1.3); Total Protein 5.6 g/dL (6.3-8.2)
[2020-01-07] MEDS ORDERED: NALOXONE 0.4 MG/ML 1 ML VIAL IV PRN (18:31)
--- NOTE | 2020-01-07 18:35 | ED ---
General Adult HPI - General Chief complaint: Skin/Abscess/Foreign Body Stated complaint: Cellulitis Time Seen by Provider: 01/07/20 16:10 Source: patient, RN notes reviewed, old records reviewed Mode of arrival: wheelchair Limitations: no limitations - History of Present Illness Initial comments: 79-year-old male presenting for evaluation of left leg redness, swelling. Patient had been prescribed antibiotics however his symptoms not improve over the past several days. He denies fever. He states that he normally has right lower extremity swelling but over the past one week his left leg has began to swell. He has been taking his antibiotics as prescribed with no improvement. - Related Data Home Medications Medication Instructions Recorded Confirmed Metoprolol Tartrate [Lopressor] 25 mg PO BID 08/06/13 01/07/20 Rivaroxaban [Xarelto] 20 mg PO PC-SUPPER 08/06/13 01/07/20 Furosemide 40 mg PO DAILY 08/09/13 01/07/20 Gabapentin 600 mg PO BID 06/24/14 01/07/20 Fluticasone/Salmeterol [Advair 1 puff INHALATION RT-BID 08/18/14 01/07/20 250-50 Diskus] Tiotropium 18 Mcg/Puff [Spiriva] 1 cap INHALATION RT-DAILY 08/18/14 01/07/20 oxyCODONE HCL/ACETAMINOPHEN 1 tab PO TID PRN 08/09/16 01/07/20 [Percocet 10-325 mg] Atorvastatin [Lipitor] 40 mg PO HS 01/20/18 01/07/20 Multivitamin [Men's Multi-Vitamin] 1 tab PO DAILY 01/20/18 01/07/20 Albuterol Sulfate [Ventolin HFA] 2 puff INHALATION RT-QID PRN 11/22/19 01/07/20 Ipratropium-Albuterol Nebulize 3 ml INHALATION RT-QID 11/22/19 01/07/20 [Duoneb 0.5 mg-3 mg/3 ml Soln] tiZANidine HCL [Zanaflex] 4 mg PO BID PRN 12/20/19 01/07/20 Sennosides-Docusate Sodium 2 tab PO BID 01/03/20 01/07/20 [Senokot-S] Previous Rx's Medication Instructions Recorded Docusate [Colace] 100 mg PO BID cap 11/25/19 Cephalexin [Keflex] 500 mg PO QID #40 cap 01/03/20 Allergies Allergy/AdvReac Type Severity Reaction Status Date / Time No Known Allergies Allergy Verified 01/07/20 17:51 Review of Systems ROS Statement: Those systems with pertinent positive or pertinent negative responses have been documented in the HPI. ROS Other: All systems not noted in ROS Statement are negative. Past Medical History Past Medical History: Atrial Fibrillation, COPD, GERD/Reflux, Hypertension, Myocardial Infarction (TX), Musculoskeletal Disorder, Osteoarthritis (OA), Pneumonia, Thyroid Disorder Additional Past Medical History / Comment(s): left breast mass HX OF COLON POLYPS. HX RIGHT BREAST MASS. O2 AT 2L NC @HS AND PRN. Hx Aspiration Pneumo odalys R/T "FLAPPER." HX OF THYROID PROBLEM - NO TX NOW. CHRONIC BACK PAIN, JAIME LEG NT. RT FOOT/ANKLE EDEMA, WEARS TEDS. JAIME CTS Last Myocardial Infarction Date:: 1987 History of Any Multi-Drug Resistant Organisms: MRSA Date of last positivie culture/infection: 1988-chest, 03/2012-01/2013 ankle sore MDRO Source:: staph after open heart; Right Ankle pressure sore Past Surgical History: Back Surgery, Coronary Bypass/CABG, Joint Replacement, Orthopedic Surgery Additional Past Surgical History / Comment(s): left carpel tunnel, CARPAL TUNNEL RIGHT x 2. CABG 1987 X2. JAIME SCOPES KNEES. Jaime Hip Replacement, Nicholas Fundoplicaton. Rt Shoulder Rotator Cuff. BACK X2. HX OF EPIDURALS FOR PAIN. Past Anesthesia/Blood Transfusion Reactions: No Reported Reaction Past Psychological History: No Psychological Hx Reported Smoking Status: Former smoker Past Alcohol Use History: None Reported Past Drug Use History: None Reported - Past Family History Daughter(s) Family Medical History: Cancer Father History Unknown: Yes Mother Family Medical History: No Reported History General Exam Limitations: no limitations General appearance: alert, in no apparent distress Head exam: Present: atraumatic, normocephalic Eye exam: Present: normal appearance, PERRL ENT exam: Present: normal exam Neck exam: Present: normal inspection. Absent: tenderness, meningismus Respiratory exam: Present: normal lung sounds bilaterally. Absent: respiratory distress, wheezes Cardiovascular Exam: Present: regular rate, normal rhythm GI/Abdominal exam: Present: soft. Absent: distended, tenderness, guarding Extremities exam: Present: pedal edema (Bilateral 2+ edema, erythema, no and swelling of the left leg.) Neurological exam: Present: alert, oriented X3, CN II-XII intact. Absent: motor sensory deficit Course Vital Signs 01/07/20 16:07 Temperature 98.2 F Pulse Rate 102 H Respiratory 24 Rate Blood Pressure 108/70 O2 Sat by Pulse 81 L Oximetry Medical Decision Making - Medical Decision Making 82-year-old male with left leg cellulitis failed outpatient treatment. Ultrasound has been performed negative for DVT in either of the lower extremities. He has a normal white blood cell count, normal lactic acid. He does have a elevated CRP at 80. He is initiated on IV antibiotics and has been admitted to internal medicine. Case has been discussed with Dr. Araya who will admit. - Lab Data Result diagrams: 01/07/20 17:34 01/07/20 17:34 Lab Results 01/07/20 01/07/20 01/07/20 Range/Units 17:02 17:02 17:34 WBC 8.3 (3.8-10.6) k/uL RBC 3.28 L (4.30-5.90) m/uL Hgb 8.2 L (13.0-17.5) gm/dL Hct 28.5 L (39.0-53.0) % MCV 87.0 (80.0-100.0) fL MCH 25.1 (25.0-35.0) pg MCHC 28.9 L (31.0-37.0) g/dL RDW 18.5 H (11.5-15.5) % Plt Count 139 L (150-450) k/uL Neutrophils % 76 % Lymphocytes % 13 % Monocytes % 8 % Eosinophils % 1 % Basophils % 0 % Neutrophils # 6.3 (1.3-7.7) k/uL Lymphocytes # 1.0 (1.0-4.8) k/uL Monocytes # 0.7 (0-1.0) k/uL Eosinophils # 0.1 (0-0.7) k/uL Basophils # 0.0 (0-0.2) k/uL Hypochromasia Marked Anisocytosis Slight PT 10.8 (9.0-12.0) sec INR 1.1 (<1.2) APTT 29.9 (22.0-30.0) sec Sodium (137-145) mmol/L Potassium (3.5-5.1) mmol/L Chloride (98-107) mmol/L Carbon Dioxide (22-30) mmol/L Anion Gap mmol/L BUN (9-20) mg/dL Creatinine (0.66-1.25) mg/dL Est GFR (CKD-EPI)AfAm (>60 ml/min/1.73 sqM) Est GFR (CKD-EPI)NonAf (>60 ml/min/1.73 sqM) Glucose (74-99) mg/dL Plasma Lactic Acid Gio 1.5 (0.7-2.0) mmol/L Calcium (8.4-10.2) mg/dL Magnesium (1.6-2.3) mg/dL Total Bilirubin (0.2-1.3) mg/dL AST (17-59) U/L ALT (4-49) U/L Alkaline Phosphatase (38-126) U/L C-Reactive Protein (<10.0) mg/L Total Protein (6.3-8.2) g/dL Albumin (3.5-5.0) g/dL 01/07/20 Range/Units 17:34 WBC (3.8-10.6) k/uL RBC (4.30-5.90) m/uL Hgb (13.0-17.5) gm/dL Hct (39.0-53.0) % MCV (80.0-100.0) fL MCH (25.0-35.0) pg MCHC (31.0-37.0) g/dL RDW (11.5-15.5) % Plt Count (150-450) k/uL Neutrophils % % Lymphocytes % % Monocytes % % Eosinophils % % Basophils % % Neutrophils # (1.3-7.7) k/uL Lymphocytes # (1.0-4.8) k/uL Monocytes # (0-1.0) k/uL Eosinophils # (0-0.7) k/uL Basophils # (0-0.2) k/uL Hypochromasia Anisocytosis PT (9.0-12.0) sec INR (<1.2) APTT (22.0-30.0) sec Sodium 141 (137-145) mmol/L Potassium 4.4 (3.5-5.1) mmol/L Chloride 99 (98-107) mmol/L Carbon Dioxide 38 H (22-30) mmol/L Anion Gap 4 mmol/L BUN 21 H (9-20) mg/dL Creatinine 0.61 L (0.66-1.25) mg/dL Est GFR (CKD-EPI)AfAm >90 (>60 ml/min/1.73 sqM) Est GFR (CKD-EPI)NonAf >90 (>60 ml/min/1.73 sqM) Glucose 96 (74-99) mg/dL Plasma Lactic Acid Gio (0.7-2.0) mmol/L Calcium 8.7 (8.4-10.2) mg/dL Magnesium 1.9 (1.6-2.3) mg/dL Total Bilirubin 0.8 (0.2-1.3) mg/dL AST 34 (17-59) U/L ALT 35 (4-49) U/L Alkaline Phosphatase 74 (38-126) U/L C-Reactive Protein 78.7 H (<10.0) mg/L Total Protein 5.6 L (6.3-8.2) g/dL Albumin 3.2 L (3.5-5.0) g/dL Disposition Clinical Impression: Cellulitis of left leg Disposition: ADMITTED IP TO THIS HOSP Condition: Stable Is patient prescribed a controlled substance at d/c from ED?: No Referrals: Adams Abraham DO [Primary Care Provider] - 1-2 days Decision to Admit Reason: Admit from EC Decision Date: 01/07/20 Decision Time: 18:35
[2020-01-07] MEDS ORDERED: tiZANidine 4 MG TAB PO PRN (19:52)
[2020-01-07] MEDS ORDERED: ALBUTEROL NEBULIZED 2.5 MG/3 ML INHALATION PRN (19:52)
[2020-01-07] MEDS ORDERED: HYDROmorphone 0.5 MG/0.5 ML SYRINGE IVP PRN (19:58)
[2020-01-07] MEDS ORDERED: ALPRAZolam 0.25 MG TAB PO PRN (19:58)
[2020-01-07] MEDS: IPRATROPIUM-ALBUTEROL 3 ML NEB INHALATION SCH (20:24)
[2020-01-07] MEDS: SYMBICORT 80-4.5 MCG INHALER INHALATION SCH (20:24)
--- NOTE | 2020-01-07 20:47 | XR ---
EXAMINATION TYPE: XR chest 1V portable DATE OF EXAM: 01/07/2020 COMPARISON: 01/03/2020 HISTORY: Short of breath TECHNIQUE: FINDINGS: Heart is enlarged. There is no gross heart failure. There is coarsening of the interstitial markings. There is flattening of the diaphragm. There are sternal wires. There is slight blunting of the costophrenic angles. IMPRESSION: COPD and pulmonary fibrosis. Small pleural effusions. No obvious heart failure. Chest is not significantly different than recent exam.
--- NOTE | 2020-01-07 22:16 | HP ---
HISTORY AND PHYSICAL I am covering for Dr. Abraham. CHIEF COMPLAINTS: Pain and swelling and cellulitis of both legs, left more than the right. HISTORY OF PRESENT ILLNESS: This 79-year-old gentleman with a past medical history of multiple medical problems, atrial fibrillation, COPD, GERD, history of hypertension, history of congestive heart failure with chronic diastolic dysfunction with ejection fraction 55-60 percent, being followed by Dr. Abraham in the outpatient setting, recently admitted with shortness of breath. Currently the patient is having cellulitis of the right leg for the for the last 4 months. Patient had multiple falls. Patient had also ecchymoses. The patient is also complaining increased pain and swelling of the left leg the patient was recommend to come to [facility] and was admitted for further evaluation and treatment. There is no history of fever, rigors or chills. No history of headache, loss of consciousness, seizures. PAST MEDICAL HISTORY: History of atrial fibrillation, chronic. History of COPD, GERD, hypertension, history of myocardial infarction, DJD, hypothyroidism, history of colonic polyps, history of CAD, CABG. MEDICATIONS: Prior to admission include home medications are: 1. Zanaflex. 2. Percocet. 3. Spiriva. 4. Senokot-S. 5. Xarelto. 6. Multivitamins. 7. Lopressor. 8. DuoNeb. 9. Gabapentin. 10.Furosemide. 11.Advair. 12.Colace. 13.Keflex. 14.Lipitor. 15.Ventolin HFA. 16.Doses reviewed. ALLERGIES: None. FAMILY HISTORY: No history of heart disease or strokes in the family. SOCIAL HISTORY: History of smoking. Light smoking. No history of alcohol intake. REVIEW OF SYSTEMS: ENT: Diminished vision. Diminished hearing. CARDIOVASCULAR: As mentioned earlier. RESPIRATORY: As mentioned earlier. GI: No nausea or vomiting. no dysuria. NERVOUS SYSTEM: No numbness, weakness. ALLERGY/IMMUNOLOGY: No asthma or hayfever. HEMATOLOGY/ONCOLOGY: As mentioned earlier. ENDOCRINE as mentioned earlier. CONSTITUTIONAL: As mentioned earlier. DERMATOLOGY: As mentioned earlier. RHEUMATOLOGY: Negative. PSYCHIATRY: As mentioned. PHYSICAL EXAMINATION: Alert and oriented times three. Pulse 71, blood pressure 117/87, respiration 18, temperature 98.2, pulse ox 97% on 3 L. HEENT: Conjunctivae normal. Oral mucosa moist. NECK is jugular venous distention at the root of the neck. CARDIOVASCULAR: S1, S2 muffled. Ejection systolic murmur present. RESPIRATORY: A few scattered rhonchi and crackles. Expiratory wheezing. ABDOMEN: Soft. Nontender. No mass palpable. LEGS: Significant bilateral leg swelling and cellulitis and excoriation also present and Lalita intertrigo also present. NERVOUS SYSTEM: Higher functions as mentioned earlier. Moves all 4 limbs. No focal motor or sensory deficits. Lymphatics system: No lymph nodes in the neck, axilla or groin. SKIN: No ulcers. No rashes and no bleeding. JOINTS: No active deforming arthropathy. LABS: WBC 8.3, hemoglobin is 8.2, platelets 139, creatinine 0.61. ASSESSMENT: 1. Bilateral leg swelling with cellulitis with failure of outpatient treatment. 2. Congestive heart failure with acute on chronic diastolic dysfunction ejection fraction 50% to 60%. 3. Anemia, normocytic anemia of chronic disease. 4. Thrombocytopenia. 5. Candidal intertrigo. 6. Mild protein calorie malnutrition. 7. History of chronic atrial fibrillation. 8. Chronic obstructive pulmonary disease. 9. Hypertension. 10.History of myocardial infarction. 11.History of degenerative joint disease. 12.History of pneumonia. 13.History of chronic hypoxic respiratory failure. 14.History of aspiration pneumonia. 15.History of chronic back pain. 16.History of MRSA. 17.History of coronary artery disease/coronary artery bypass grafting. 18.Remote history of nicotine dependence. 19.History of nicotine dependence. 20.FULL CODE. RECOMMENDATIONS AND DISCUSSION: This 79-year-old gentleman who presented with multiple complex medical issues, we will monitor the patient closely. Continue the current medications, management and symptomatic treatment. We will initiate broad-spectrum IV antibiotics. Obtain cultures. I would also recommend IV Lasix drip. Cardiology and Infectious Disease evaluation. Obtain cultures. Otherwise, guarded prognosis because of multiple complex medical problems. See orders for details. I would also recommend Silvadene application and Jesus wrapping also. Fluid restriction to 1200 mL per 24 hours. Prognosis guarded because of multiple complex medical issues. Further recommendations to follow. A copy of this dictation being forwarded to Dr. Abraham who is the primary physician. MMODL / IJN: [id number] /
[2020-01-07] MEDS: FUROSEMIDE 100 MG in SODIUM CHLORIDE 0.9% 90 ML IV SCH (22:17)
[2020-01-07] MEDS: FLUCONAZOLE IN NACL,ISO-OSM 100 MG in SALINE 1 50ML.BAG IVPB SCH (22:33)
[2020-01-07] MEDS: ATORVASTATIN 40 MG TAB PO SCH (22:50)
[2020-01-07] MEDS: METOPROLOL TARTRATE 25 MG TAB PO SCH (22:50)
[2020-01-07] MEDS: GABAPENTIN 300 MG CAP PO SCH (22:50)
[2020-01-07] MEDS: SENNOSIDES-DOCUSATE SODIUM 1 EACH TAB PO SCH (22:50)
[2020-01-07] MEDS: DOCUSATE 100 MG CAP PO SCH (22:50)
[2020-01-08] MEDS: FUROSEMIDE 100 MG in SODIUM CHLORIDE 0.9% 90 ML IV SCH ×3 (05:32→23:01)
[2020-01-08] MEDS: VANCOMYCIN 1,250 MG in SODIUM CHLORIDE 0.9% 250 ML IVPB SCH ×2 (06:12→19:04)
[2020-01-08] MEDS: PANTOPRAZOLE 40 MG TABLET PO SCH (06:29)
[2020-01-08 08:21] LABS: Anisocytosis Slight; Basophils % (A) 0 %; Eosinophils # (A) 0.1 k/uL (0-0.7); Eosinophils % (A) 2 %; HCT 29.7 % (39.0-53.0); HGB 8.6 gm/dL (13.0-17.5); Hypochromasia Marked; Lymphocytes # (A) 1.8 k/uL (1.0-4.8); Lymphocytes % (A) 24 %; MCH 25.3 pg (25.0-35.0); MCV 87.2 fL (80.0-100.0); Mean Platelet Volume 6.6; Monocytes # (A) 0.6 k/uL (0-1.0); Monocytes % (A) 8 %; Neutrophils # (A) 4.7 k/uL (1.3-7.7); Neutrophils % (A) 63 %; Platelet Count 173 k/uL (150-450); RBC 3.41 m/uL (4.30-5.90); RDW 18.4 % (11.5-15.5); WBC 7.4 k/uL (3.8-10.6)
[2020-01-08 08:45] LABS: African American GFR (CKD) >90 (>60 ml/min/1.73 sqM); Blood Urea Nitrogen 19 mg/dL (9-20); Calcium 8.3 mg/dL (8.4-10.2); Chloride 94 mmol/L (98-107); Glucose 106 mg/dL (74-99); Non-African American GFR(CKD) 89 (>60 ml/min/1.73 sqM); Potassium 3.6 mmol/L (3.5-5.1); Sodium 140 mmol/L (137-145)
[2020-01-08 08:55] LABS: Anion Gap 3 mmol/L
[2020-01-08] MEDS: SYMBICORT 80-4.5 MCG INHALER INHALATION SCH ×2 (09:03→20:47)
[2020-01-08] MEDS: IPRATROPIUM-ALBUTEROL 3 ML NEB INHALATION SCH ×4 (09:03→20:47)
[2020-01-08] MEDS: SENNOSIDES-DOCUSATE SODIUM 1 EACH TAB PO SCH ×2 (09:09→19:52)
[2020-01-08] MEDS: DOCUSATE 100 MG CAP PO SCH ×2 (09:09→19:52)
[2020-01-08] MEDS: GABAPENTIN 300 MG CAP PO SCH ×2 (09:09→19:52)
[2020-01-08 09:22] LABS: Carbon Dioxide 43 mmol/L (22-30)
[2020-01-08] MEDS: FLUCONAZOLE IN NACL,ISO-OSM 100 MG in SALINE 1 50ML.BAG IVPB SCH (10:08)
[2020-01-08] MEDS: METOPROLOL TARTRATE 25 MG TAB PO SCH ×2 (12:30→19:52)
[2020-01-08] MEDS: DIGOXIN 125 MCG TAB PO SCH (12:57)
[2020-01-08] MEDS: MULTIVITAMINS, THERA 1 EACH TAB PO SCH (12:57)
[2020-01-08] MEDS: oxyCODONE-APAP 10-325MG 1 EACH TAB PO PRN (13:02)
--- NOTE | 2020-01-08 13:59 | P.CRDCN ---
History of Present Illness History of present illness: HISTORY OF PRESENTING ILLNESS This is a pleasant 79-year-old occasion male past medical history significant for coronary artery disease status post bypass grafting with a QUEEN to LAD and SVG to diagonal, chronic persistent atrial fibrillation, COPD, hypertension, dyslipidemia and chronic diastolic heart failure. He follows in the office with Dr. Landeros. We have been asked to see in consultation for congestive heart failure. He presented to the hospital with symptoms of bilateral lower extremity edema. He states he's been following closely as an outpatient for right leg cellulitis on antibiotics and recently over the previous few days developed swelling in the left leg which is new for him. He denies symptoms of chest pain, shortness of breath, dizziness or palpitations. Bilateral lower extremity Doppler negative for DVT. He's been started on Lasix infusion. Chest x-ray reveals COPD and pulmonary fibrosis with no heart failure noted. Laboratory data reviewed, WBC 7.4, hemoglobin 8.6, platelets 173, sodium 140, potassium 3.6, creatinine 0.7, magnesium 1.9 and NT proBNP 1880. Current daily cardiac medications include Xarelto 20 mg daily, Lopressor 25 mg twice a day, L asix 40 mg daily and atorvastatin 40 mg at bedtime. Most recent stress test performed in the office July 2018 revealed a predominantly fixed defect in the anterior apical and apical segment suggestive of prior [place] with no evidence of reversibility. Most recent echocardiogram obtained November 2019 revealed preserved LV systolic function with ejection fraction 55-60%, apical septal wall motion hypokinesia consistent with previous open heart surgery, moderate TR and moderate pulmonary hypertension with an RVSP of 56 mmHg. REVIEW OF SYSTEMS At the time of my exam: CONSTITUTIONAL: Denies fever or chills. CARDIOVASCULAR: Denies chest pain, shortness of breath, orthopnea, PND or palpitations. RESPIRATORY: Denies cough. GASTROINTESTINAL: Denies abdominal pain, diarrhea, constipation, nausea or vomiting. MUSCULOSKELETAL: Denies myalgias. NEUROLOGIC: Denies numbness, tingling or weakness. ENDOCRINE: Denies fatigue, weight change, polydipsia or polyurina. GENITOURINARY: Denies burning, hematuria or urgency with micturation. HEMATOLOGIC: Denies history of anemia or bleeding. PHYSICAL EXAMINATION Blood pressure 111/56 heart rate 96 afebrile and maintaining oxygen saturation on nasal cannula. CONSTITUTIONAL: No apparent distress. HEENT: Head is normocephalic. Pupils are equal, round. Sclerae anicteric. Mucous membranes of the mouth are moist. No JVD. No carotid bruit. CHEST EXAMINATION: Lungs are clear to auscultation. No chest wall tenderness is noted on palpation or with deep breathing. diminished bilaterally. HEART EXAMINATION: Irregular rate and rhythm. S1, S2 heard. Systolic ejection murmur at the left sternal border, no gallops or rub. ABDOMEN: Soft, nontender. Positive bowel sounds. EXTREMITIES: 2+ peripheral pulses, significant bilateral lower extremity nonpitting edema and no calf tenderness. Bilateral Jesus wraps in place. NEUROLOGIC EXAMINATION: Patient is awake, alert and oriented x3. ASSESSMENT Bilateral lower extremity cellulitis Anemia Chronic persistent atrial fibrillation on long-term anticoagulation with variable ventricular rates. Coronary artery disease status post bypass grafting Chronic diastolic heart failure Hypertension Dyslipidemia COPD PLAN The patient has no symptoms of shortness of breath. His lower extremity swelling is secondary to cellulitis and not heart failure. Ongoing diuretic management per the primary care team. His heart rates are around 100-105 and lopressor was held this morning secondary to hypotension. We will add a small dose of digoxin for heart rate temporarily while he is hypotensive. Thank you kindly for this consutlation. Nurse Practitioner note has been reviewed, I agree with a documented findings and plan of care. Patient was seen and examined. Past Medical History Past Medical History: Atrial Fibrillation, Heart Failure, COPD, Hypertension, Myocardial Infarction ([place]), Musculoskeletal Disorder, Osteoarthritis (OA), Pneumonia, Thyroid Disorder Additional Past Medical History / Comment(s): left breast mass HX OF COLON POLYPS. HX RIGHT BREAST MASS. O2 AT 2L NC @HS AND PRN. Hx Aspiration Pneumonia R/T "FLAPPER." HX OF THYROID PROBLEM - NO TX NOW. CHRONIC BACK PAIN, JAIME LEG NT. RT FOOT/ANKLE EDEMA, WEARS TEDS. JAIME CTS Last Myocardial Infarction Date:: 1987 History of Any Multi-Drug Resistant Organisms: MRSA Date of last positivie culture/infection: 1988-chest, 03/2012-01/2013 ankle sore MDRO Source:: staph after open heart; Right Ankle pressure sore Past Surgical History: Back Surgery, Coronary Bypass/CABG, Joint Replacement, Orthopedic Surgery Additional Past Surgical History / Comment(s): left carpel tunnel, CARPAL TUNNEL RIGHT x 2. CABG 1987 X2. JAIME SCOPES KNEES. Jaime Hip Replacement, Nicholas Fundoplicaton. Rt Shoulder Rotator Cuff. BACK X2. HX OF EPIDURALS FOR PAIN. Past Anesthesia/Blood Transfusion Reactions: No Reported Reaction Past Psychological History: No Psychological Hx Reported Additional Psychological History / Comment(s): REFUSES RX Smoking Status: Former smoker Past Alcohol Use History: None Reported Additional Past Alcohol Use History / Comment(s): SMOKES 2-3 cig Daily AVG, SINCE TEENS, WAS 1 PPD IN PAST Past Drug Use History: None Reported - Past Family History Daughter(s) Family Medical History: Cancer Father History Unknown: Yes Mother Family Medical History: No Reported History Medications and Allergies Home Medications Medication Instructions Recorded Confirmed Type Metoprolol Tartrate [Lopressor] 25 mg PO BID 08/06/13 01/07/20 History Rivaroxaban [Xarelto] 20 mg PO PC-SUPPER 08/06/13 01/07/20 History Furosemide 40 mg PO DAILY 08/09/13 01/07/20 History Gabapentin 600 mg PO BID 06/24/14 01/07/20 History Fluticasone/Salmeterol [Advair 1 puff INHALATION RT-BID 08/18/14 01/07/20 History 250-50 Diskus] Tiotropium 18 Mcg/Puff [Spiriva] 1 cap INHALATION RT-DAILY 08/18/14 01/07/20 History oxyCODONE HCL/ACETAMINOPHEN 1 tab PO TID PRN 08/09/16 01/07/20 History [Percocet 10-325 mg] Atorvastatin [Lipitor] 40 mg PO HS 01/20/18 01/07/20 History Multivitamin [Men's Multi-Vitamin] 1 tab PO DAILY 01/20/18 01/07/20 History Albuterol Sulfate [Ventolin HFA] 2 puff INHALATION RT-QID PRN 11/22/19 01/07/20 History Ipratropium-Albuterol Nebulize 3 ml INHALATION RT-QID 11/22/19 01/07/20 History [Duoneb 0.5 mg-3 mg/3 ml Soln] Docusate [Colace] 100 mg PO BID cap 11/25/19 01/07/20 Rx tiZANidine HCL [Zanaflex] 4 mg PO BID PRN 12/20/19 01/07/20 History Cephalexin [Keflex] 500 mg PO QID #40 cap 01/03/20 01/07/20 Rx Sennosides-Docusate Sodium 2 tab PO BID 01/03/20 01/07/20 History [Senokot-S] Allergies Allergy/AdvReac Type Severity Reaction Status Date / Time No Known Allergies Allergy Verified 01/07/20 17:51 Physical Exam Vitals: Vital Signs Temp Pulse Pulse Resp BP BP Pulse Ox 01/08/20 03:39 98.4 F 78 18 101/62 96 01/08/20 00:00 97.5 F L 93 18 117/56 97 01/07/20 22:00 98.4 F 80 20 112/66 99 01/07/20 20:40 103 H 20 01/07/20 20:27 106 H 20 01/07/20 19:27 98.2 F 71 18 117/87 96 01/07/20 19:00 18 117/87 96 01/07/20 18:30 71 123/74 98 01/07/20 18:00 70 117/86 100 01/07/20 17:30 70 120/94 96 01/07/20 17:00 68 93/55 93 L 01/07/20 16:34 67 96 01/07/20 16:28 96 01/07/20 16:07 98.2 F 102 H 24 108/70 81 L Intake and Output 01/07/20 01/08/20 01/08/20 22:59 06:59 14:59 Intake Total 552.5 Output Total 3800 Balance -3247.5 Intake: Intake, IV Titration 72.5 Amount Furosemide 100 mg In 72.5 Sodium Chloride 0.9% 90 ml @ 10 MG/HR 10 mls/hr IV .Q10H [facility] Rx#: [id number] Oral 480 Output: Urine 3800 Other: Voiding Method Indwelling Catheter Indwelling Catheter Weight 78.925 kg 82.5 kg Results 01/08/20 07:14 01/08/20 07:14 Cardiac Enzymes 01/07/20 Range/Units 17:34 AST 34 (17-59) U/L Coagulation 01/07/20 Range/Units 17:02 PT 10.8 (9.0-12.0) sec APTT 29.9 (22.0-30.0) sec CBC 10/16/20 Range/Units 17:34 WBC 8.3 (3.8-10.6) k/uL RBC 3.28 L (4.30-5.90) m/uL Hgb 8.2 L (13.0-17.5) gm/dL Hct 28.5 L (39.0-53.0) % Plt Count 139 L (150-450) k/uL Comprehensive Metabolic Panel 01/07/20 Range/Units 17:34 Sodium 141 (137-145) mmol/L Potassium 4.4 (3.5-5.1) mmol/L Chloride 99 (98-107) mmol/L Carbon Dioxide 38 H (22-30) mmol/L BUN 21 H (9-20) mg/dL Creatinine 0.61 L (0.66-1.25) mg/dL Glucose 96 (74-99) mg/dL Calcium 8.7 (8.4-10.2) mg/dL AST 34 (17-59) U/L ALT 35 (4-49) U/L Alkaline Phosphatase 74 (38-126) U/L Total Protein 5.6 L (6.3-8.2) g/dL Albumin 3.2 L (3.5-5.0) g/dL Current Medications Generic Name Dose Route Start Last Admin Trade Name Freq PRN Reason Stop Dose Admin Acetaminophen 650 mg 01/07/20 18:31 Acetaminophen Tab 325 Mg Tab PO Q6HR PRN Mild Pain or Fever > 100.5 Albuterol Sulfate 2.5 mg 01/07/20 19:52 Albuterol Nebulized 2.5 Mg/3 Ml INHALATION RT-QID PRN Shortness Of Breath Albuterol/Ipratropium 3 ml 01/07/20 20:00 01/07/20 20:24 Ipratropium-Albuterol 3 Ml Neb INHALATION 3 ml RT-QID JULISSA Administration Alprazolam 0.25 mg 01/07/20 19:58 Alprazolam 0.25 Mg Tab PO TID PRN Anxiety Atorvastatin Calcium 40 mg 01/07/20 21:00 01/07/20 22:50 Atorvastatin 40 Mg Tab PO 40 mg HS JULISSA Administration Budesonide/Formoterol Fumarate 2 puff 01/07/20 20:00 01/07/20 20:24 Symbicort 80-4.5 Mcg Inhaler INHALATION 2 puff RT-BID JULISSA Administration Docusate Sodium 100 mg 01/07/20 21:00 01/07/20 22:50 Docusate 100 Mg Cap PO 100 mg BID JULISSA Administration Gabapentin 600 mg 01/07/20 21:00 01/07/20 22:50 Gabapentin 300 Mg Cap PO 600 mg BID JULISSA Administration Hydromorphone HCl 0.5 mg 01/07/20 19:58 Hydromorphone 0.5 Mg/0.5 Ml Syringe IVP Q6HR PRN Severe Pain Vancomycin HCl 1,250 mg/ 250 mls @ 125 mls/hr 01/08/20 06:00 01/08/20 06:12 Sodium Chloride IVPB 125 mls/hr Q12H JULISSA Administration Cefazolin Sodium 2 gm/ Sodium 50 mls @ 100 mls/hr 01/08/20 00:00 01/07/20 23:41 Chloride IVPB 100 mls/hr Q8HR JULISSA Administration Fluconazole/Sodium Chloride 50 mls @ 50 mls/hr 01/07/20 20:00 01/07/20 22:33 100 mg/ IV Solution IVPB 50 mls/hr DAILY JULISSA Administration Furosemide 100 mg/ Sodium 100 mls @ 10 mls/hr 01/07/20 20:00 01/08/20 05:32 Chloride IV 10 mg/hr .Q10H JULISSA 10 mls/hr Administration 10 MG/HR Metoprolol Tartrate 25 mg 01/07/20 21:00 01/07/20 22:50 Metoprolol Tartrate 25 Mg Tab PO 25 mg BID JULISSA Administration Multivitamins 1 each 01/08/20 12:00 Multivitamins, Thera 1 Each Tab PO DAILY@1200 JULISSA Naloxone HCl 0.2 mg 01/07/20 18:31 Naloxone 0.4 Mg/Ml 1 Ml Vial IV Q2M PRN Opioid Reversal Oxycodone/Acetaminophen 1 each 01/07/20 19:52 Oxycodone-Apap 10-325mg 1 Each Tab PO TID PRN MODERATE Pain Pantoprazole Sodium 40 mg 01/08/20 07:30 01/08/20 06:29 Pantoprazole 40 Mg Tablet PO 40 mg [id number] JULISSA Administration Rivaroxaban 20 mg 01/08/20 18:30 Rivaroxaban 20 Mg Tab PO PC-SUPPER JULISSA Senna/Docusate Sodium 2 each 01/07/20 21:00 01/07/20 22:50 Sennosides-Docusate Sodium 1 Each Tab PO 2 each BID JULISSA Administration Silver Sulfadiazine 1 applic 01/07/20 21:00 01/07/20 22:46 Silver Sulfadiazine 1% Cream 25 Gm Tube TOPICAL 1 applic BID JULISSA Administration Tiotropium [place] 1 puff 01/08/20 08:00 Tiotropium 18 Mcg/Puff Inhaler INHALATION RT-DAILY [facility] Tizanidine HCl 4 mg 01/07/20 19:52 Tizanidine 4 Mg Tab PO BID PRN Muscle Spasm Intake and Output 01/07/20 01/08/20 01/08/20 22:59 06:59 14:59 Intake Total 552.5 Output Total 3800 Balance -3247.5 Intake: Intake, IV Titration 72.5 Amount Furosemide 100 mg In 72.5 Sodium Chloride 0.9% 90 ml @ 10 MG/HR 10 mls/hr IV .Q10H [facility] Rx#: [id number] Oral 480 Output: Urine 3800 Other: Voiding Method Indwelling Catheter Indwelling Catheter Weight 78.925 kg 82.5 kg 01/07/20 17:34 01/07/20 17:34
--- NOTE | 2020-01-08 15:02 | PN ---
PROGRESS NOTE DATE OF SERVICE: 01/08/2020 I am covering for Dr. Abraham. This 79-year-old gentleman, admitted with CHF acute exacerbation, bilateral leg swelling, on Lasix drip. Patient also had bilateral leg cellulitis, failure of outpatient treatment also. The patient being closely monitored. CO2 is 43 at this time. Otherwise, hemoglobin is 8.6. Past medical history reviewed. REVIEW OF SYSTEMS: CARDIOVASCULAR: No angina or palpitations. Respiration as mentioned earlier. GI: As mentioned earlier. : As mentioned earlier. NERVOUS SYSTEM: No numbness or weakness. CURRENT MEDICATIONS: Reviewed and include: Tylenol, Ventolin, Lipitor, Symbicort, cefazolin, Lasix drip, fluconazole, Dilaudid, Narcan. Percocet, Xarelto, Silvadene, Zanaflex, doses are reviewed. PHYSICAL EXAM: Patient is alert, oriented x3. Pulse is 101. Blood pressure 111/56, respiration 18, temperature 98.2, pulse ox 98% on 3 L. HEENT: Conjunctivae normal. NECK no JVD. CARDIOVASCULAR: S1, S2 muffled. RESPIRATORY: Breath sounds diminished in the bases. A few scattered rhonchi and crackles. ABDOMEN: Soft. LEGS: Bilateral leg swelling and cellulitis present. NERVOUS SYSTEM: No focal deficits. LABS: WBC 7, hemoglobin is 8.6. Other labs are noted. Cultures are pending. ASSESSMENT: 1. Bilateral leg swelling and cellulitis with failure of outpatient treatment. 2. Congestive heart failure, acute exacerbation with acute on chronic diastolic dysfunction. Ejection fraction 50 to 60%. 3. Anemia, normocytic anemia of chronic disease. 4. Thrombocytopenia. 5. Lalita intertrigo. 6. Mild protein calorie malnutrition. 7. History of coronary artery disease. 8. Chronic obstructive pulmonary disease. 9. Hypertension. 10.History of myocardial infarction. 11.History of degenerative joint disease. 12.History of pneumonia. 13.History of chronic hypoxic respiratory failure. 14.History of aspiration pneumonia. 15.History of chronic back pain. 16.History of MRSA. 17.History of coronary artery disease/coronary artery bypass grafting. 18.History of nicotine dependence. 19.FULL CODE. RECOMMENDATIONS AND DISCUSSION: In this 79-year-old gentleman who presented with multiple complex medical issues, we will monitor the patient closely. Continue the current medications, management and symptomatic treatment. Continue the fluid and electrolytes balance closely. Continue the antibiotics. Band-Aids. Otherwise, prognosis guarded because of multiple complex medical issues. Further recommendations to follow. Closely follow with Cardiology. Venous ultrasound was negative at this time. MMODL / IJN: [id number] /
[2020-01-08] MEDS: RIVAROXABAN 20 MG TAB PO SCH (19:04)
[2020-01-08] MEDS: ATORVASTATIN 40 MG TAB PO SCH (19:52)
--- NOTE | 2020-01-08 23:13 | P.CONS ---
History of Present Illness - Reason for Consult Consult date: 01/08/20 Bilateral legs Cellulitis Requesting physician: Freddy Araya - Chief Complaint Bilateral leg swelling and redness x one week - History of Present Illness Patient is a 79-year-old male presented back to the ER for evaluation of lower extremity swelling and redness apparently the patient was seen in the ER about a week ago and he was diagnosed with lower extremity cellulitis patient was treated with oral Keflex patient to 4 times a day patient mentioned did have some improvement however did have significant swelling in the leg along with the redness patient describing pain to the neck to be dull aching at times throbbing of mass 6-7 out of 10 and no radiation patient did have a abscess drainage from his leg causing the swelling did have some chills but denies high-grade fever these are better the patient was evaluated by the ER physician on arrival to the emergency room for the patient was afebrile and he did have a normal white count patient did have a lower simply Doppler was negative for DVT patient was started on cefazolin 2 g every 8 hours infectious disease was consulted for further management of antibiotic therapy Review of Systems Positive point has been mentioned in the HPI rest of the systems are negative Past Medical History Past Medical History: Atrial Fibrillation, Heart Failure, COPD, Hypertension, Myocardial Infarction ([place]), Musculoskeletal Disorder, Osteoarthritis (OA), Pneumonia, Thyroid Disorder Additional Past Medical History / Comment(s): left breast mass HX OF COLON POLYPS. HX RIGHT BREAST MASS. O2 AT 2L NC @HS AND PRN. Hx Aspiration Pneumonia R/T "FLAPPER." HX OF THYROID PROBLEM - NO TX NOW. CHRONIC BACK PAIN, JAIME LEG NT. RT FOOT/ANKLE EDEMA, WEARS TEDS. JAIME CTS Last Myocardial Infarction Date:: 1987 History of Any Multi-Drug Resistant Organisms: MRSA Year Discovered:: 1988-chest, 03/2012-01/2013 ankle sore MDRO Source:: staph after open heart; Right Ankle pressure sore Past Surgical History: Back Surgery, Coronary Bypass/CABG, Joint Replacement, Orthopedic Surgery Additional Past Surgical History / Comment(s): left carpel tunnel, CARPAL TUNNEL RIGHT x 2. CABG 1987 X2. JAIME SCOPES KNEES. Jaime Hip Replacement, Nicholas Fundoplicaton. Rt Shoulder Rotator Cuff. BACK X2. HX OF EPIDURALS FOR PAIN. Past Anesthesia/Blood Transfusion Reactions: No Reported Reaction Past Psychological History: No Psychological Hx Reported Additional Psychological History / Comment(s): REFUSES RX Smoking Status: Former smoker Past Alcohol Use History: None Reported Additional Past Alcohol Use History / Comment(s): SMOKES 2-3 cig Daily AVG, SINCE TEENS, WAS 1 PPD IN PAST Past Drug Use History: None Reported - Past Family History Daughter(s) Family Medical History: Cancer Father History Unknown: Yes Mother Family Medical History: No Reported History Medications and Allergies Home Medications Medication Instructions Recorded Confirmed Type Metoprolol Tartrate [Lopressor] 25 mg PO BID 08/06/13 01/07/20 History Rivaroxaban [Xarelto] 20 mg PO PC-SUPPER 08/06/13 01/07/20 History Furosemide 40 mg PO DAILY 08/09/13 01/07/20 History Gabapentin 600 mg PO BID 06/24/14 01/07/20 History Fluticasone/Salmeterol [Advair 1 puff INHALATION RT-BID 08/18/14 01/07/20 History 250-50 Diskus] Tiotropium 18 Mcg/Puff [Spiriva] 1 cap INHALATION RT-DAILY 08/18/14 01/07/20 History oxyCODONE HCL/ACETAMINOPHEN 1 tab PO TID PRN 08/09/16 01/07/20 History [Percocet 10-325 mg] Atorvastatin [Lipitor] 40 mg PO HS 01/20/18 01/07/20 History Multivitamin [Men's Multi-Vitamin] 1 tab PO DAILY 01/20/18 01/07/20 History Albuterol Sulfate [Ventolin HFA] 2 puff INHALATION RT-QID PRN 11/22/19 01/07/20 History Ipratropium-Albuterol Nebulize 3 ml INHALATION RT-QID 11/22/19 01/07/20 History [Duoneb 0.5 mg-3 mg/3 ml Soln] Docusate [Colace] 100 mg PO BID cap 11/25/19 01/07/20 Rx tiZANidine HCL [Zanaflex] 4 mg PO BID PRN 12/20/19 01/07/20 History Cephalexin [Keflex] 500 mg PO QID #40 cap 01/03/20 01/07/20 Rx Sennosides-Docusate Sodium 2 tab PO BID 01/03/20 01/07/20 History [Senokot-S] Allergies Allergy/AdvReac Type Severity Reaction Status Date / Time No Known Allergies Allergy Verified 01/07/20 17:51 Physical Exam Vitals: Vital Signs Temp Pulse Pulse Resp BP BP Pulse Ox 01/08/20 09:24 97.5 F L 103 H 20 89/53 99 01/08/20 09:17 96 01/08/20 09:03 92 01/08/20 03:39 98.4 F 78 18 101/62 96 01/08/20 00:00 97.5 F L 93 18 117/56 97 01/07/20 22:00 98.4 F 80 20 112/66 99 01/07/20 20:40 103 H 20 01/07/20 20:27 106 H 20 01/07/20 19:27 98.2 F 71 18 117/87 96 01/07/20 19:00 18 117/87 96 01/07/20 18:30 71 123/74 98 01/07/20 18:00 70 117/86 100 01/07/20 17:30 70 120/94 96 01/07/20 17:00 68 93/55 93 L 01/07/20 16:34 67 96 01/07/20 16:28 96 01/07/20 16:07 98.2 F 102 H 24 108/70 81 L Intake and Output 01/07/20 01/08/20 01/08/20 22:59 06:59 14:59 Intake Total 552.5 240 Output Total 3800 1200 Balance -3247.5 -960 Intake: Intake, IV Titration 72.5 Amount Furosemide 100 mg In 72.5 Sodium Chloride 0.9% 90 ml @ 10 MG/HR 10 mls/hr IV .Q10H [facility] Rx#: [id number] Oral 480 240 Output: Urine 3800 1200 Other: Voiding Method Indwelling Catheter Indwelling Catheter Weight 78.925 kg 82.5 kg GENERAL DESCRIPTION: An elderly male lying in bed, no distress. No tachypnea or accessory muscle of respiration use. HEENT: Shows Pallor , no scleral icterus. Oral mucous membrane is dry. No pharyngeal erythema or thrush NECK: Trachea central, no thyromegaly. LUNGS: Unlabored breathing. Clear to auscultation anteriorly. No wheeze or crack le. HEART: S1, S2, regular rate and rhythm. No loud murmur ABDOMEN: Soft, no tenderness , guarding or rigidity, no organomegaly EXTREMITIES: Bilateral leg with swelling diffuse redness no fluctuation or any drainage. SKIN: No rash, no masses palpable. NEUROLOGICAL: The patient is awake, alert, oriented x3, mood and affect normal. Results CBC & Chem 7: 01/08/20 07:14 01/08/20 07:14 Labs: Abnormal Lab Results - Last 24 Hours (Table) 01/07/20 01/07/20 01/08/20 Range/Units 17:34 17:34 07:14 RBC 3.28 L 3.41 L (4.30-5.90) m/uL Hgb 8.2 L 8.6 L (13.0-17.5) gm/dL Hct 28.5 L 29.7 L (39.0-53.0) % MCHC 28.9 L 29.0 L (31.0-37.0) g/dL RDW 18.5 H 18.4 H (11.5-15.5) % Plt Count 139 L (150-450) k/uL Chloride (98-107) mmol/L Carbon Dioxide 38 H (22-30) mmol/L BUN 21 H (9-20) mg/dL Creatinine 0.61 L (0.66-1.25) mg/dL Glucose (74-99) mg/dL Calcium (8.4-10.2) mg/dL C-Reactive Protein 78.7 H (<10.0) mg/L Total Protein 5.6 L (6.3-8.2) g/dL Albumin 3.2 L (3.5-5.0) g/dL 01/08/20 Range/Units 07:14 RBC (4.30-5.90) m/uL Hgb (13.0-17.5) gm/dL Hct (39.0-53.0) % MCHC (31.0-37.0) g/dL RDW (11.5-15.5) % Plt Count (150-450) k/uL Chloride 94 L (98-107) mmol/L Carbon Dioxide 43 H* (22-30) mmol/L BUN (9-20) mg/dL Creatinine (0.66-1.25) mg/dL Glucose 106 H (74-99) mg/dL Calcium 8.3 L (8.4-10.2) mg/dL C-Reactive Protein (<10.0) mg/L Total Protein (6.3-8.2) g/dL Albumin (3.5-5.0) g/dL Microbiology - Last 24 Hours (Table) 01/07/20 22:37 Wound Culture - Preliminary Leg - Right Assessment and Plan Assessment: 1- patient with bilateral lower extremity cellulitis patient he did have diffuse swelling and redness and evidence of fluid overload likely representing s taphylococcal cellulitis failing outpatient oral Keflex, More likely because of the burden of disease (1) Bilateral lower leg cellulitis Current Visit: Yes Status: Acute Code(s): L03.116 - CELLULITIS OF LEFT LOWER LIMB; L03.115 - CELLULITIS OF RIGHT LOWER LIMB SNOMED Code(s): 566526878 Plan: 1- cefazolin 2 g every 8 hours 2-Jesus wrap to the leg from just above the toe to below the knee We will follow on clinical condition and cultures to further adjust medication if needed Thank you for this consultation will follow this patient with you Time with Patient: Greater than 30
[2020-01-09] MEDS ORDERED: VANCOMYCIN TROUGH DUE 1 EACH MISC MISCELLANE ONE (05:00)
[2020-01-09] MEDS: PANTOPRAZOLE 40 MG TABLET PO SCH (06:25)
[2020-01-09] MEDS: FUROSEMIDE 100 MG in SODIUM CHLORIDE 0.9% 90 ML IV SCH (06:26)
[2020-01-09 06:40] LABS: Anisocytosis Slight; Basophils % (A) 0 %; Eosinophils # (A) 0.1 k/uL (0-0.7); Eosinophils % (A) 1 %; HCT 28.3 % (39.0-53.0); HGB 8.2 gm/dL (13.0-17.5); Hypochromasia Marked; Lymphocytes # (A) 1.2 k/uL (1.0-4.8); Lymphocytes % (A) 14 %; MCH 25.1 pg (25.0-35.0); MCHC 29.1 g/dL (31.0-37.0); MCV 86.3 fL (80.0-100.0); Mean Platelet Volume 7.8; Monocytes # (A) 0.7 k/uL (0-1.0); Monocytes % (A) 8 %; Neutrophils % (A) 73 %; Platelet Count 169 k/uL (150-450); RBC 3.28 m/uL (4.30-5.90); RDW 18.6 % (11.5-15.5); WBC 8.2 k/uL (3.8-10.6)
[2020-01-09 07:18] LABS: African American GFR (CKD) >90 (>60 ml/min/1.73 sqM); Blood Urea Nitrogen 26 mg/dL (9-20); Calcium 8.1 mg/dL (8.4-10.2); Chloride 91 mmol/L (98-107); Glucose 157 mg/dL (74-99); Non-African American GFR(CKD) 78 (>60 ml/min/1.73 sqM); Potassium 4.1 mmol/L (3.5-5.1); Sodium 138 mmol/L (137-145)
[2020-01-09 07:26] LABS: Anion Gap 4 mmol/L
[2020-01-09 07:36] LABS: Carbon Dioxide 43 mmol/L (22-30)
[2020-01-09] MEDS: IPRATROPIUM-ALBUTEROL 3 ML NEB INHALATION SCH ×4 (08:03→20:50)
[2020-01-09] MEDS: TIOTROPIUM 18 MCG/PUFF INHALER INHALATION SCH ×2 (08:13→20:25)
[2020-01-09] MEDS: SENNOSIDES-DOCUSATE SODIUM 1 EACH TAB PO SCH ×2 (08:28→20:37)
[2020-01-09] MEDS: FLUCONAZOLE 100 MG TAB PO SCH (08:28)
[2020-01-09] MEDS: DIGOXIN 125 MCG TAB PO SCH (08:28)
[2020-01-09] MEDS: VANCOMYCIN 1,250 MG in SODIUM CHLORIDE 0.9% 250 ML IVPB SCH ×2 (08:28→18:04)
[2020-01-09] MEDS: METOPROLOL TARTRATE 25 MG TAB PO SCH ×2 (08:29→20:37)
[2020-01-09] MEDS: GABAPENTIN 300 MG CAP PO SCH ×2 (08:29→20:37)
[2020-01-09] MEDS: DOCUSATE 100 MG CAP PO SCH ×2 (08:29→20:37)
[2020-01-09] MEDS: SYMBICORT 80-4.5 MCG INHALER INHALATION SCH ×2 (08:33→20:51)
[2020-01-09] MEDS: oxyCODONE-APAP 10-325MG 1 EACH TAB PO PRN (08:45)
[2020-01-09] MEDS: MULTIVITAMINS, THERA 1 EACH TAB PO SCH (11:44)
--- NOTE | 2020-01-09 12:50 | P.PN ---
Subjective HISTORY OF PRESENTING ILLNESS This is a pleasant 79-year-old occasion male past medical history significant for coronary artery disease status post bypass grafting with a QUEEN to LAD and SVG to diagonal, chronic persistent atrial fibrillation, COPD, hypertension, dyslipidemia and chronic diastolic heart failure. He follows in the office with Dr. Landeros. He seen and examined resting comfortably in no acute distress. He states he is feeling better admission but not back to baseline entirely. He has no symptoms of shortness of breath, chest pain, dizziness or palpitations. Blood pressure 101/56 heart rate 100. He continues to be on lasix infusion per primary care team for cellulitis. PHYSICAL EXAMINATION CONSTITUTIONAL: No apparent distress. HEENT: Head is normocephalic. Pupils are equal, round. Sclerae anicteric. Mucous membranes of the mouth are moist. No JVD. No carotid bruit. CHEST EXAMINATION: Lungs are clear to auscultation. No chest wall tenderness is noted on palpation or with deep breathing. diminished bilaterally. HEART EXAMINATION: Irregular rate and rhythm. S1, S2 heard. Systolic ejection murmur at the left sternal border, no gallops or rub. EXTREMITIES: 2+ peripheral pulses, significant bilateral lower extremity nonpitting edema and no calf tenderness. Bilateral Jesus wraps in place. ASSESSMENT Bilateral lower extremity cellulitis Anemia Chronic persistent atrial fibrillation on long-term anticoagulation with variable ventricular rates. Coronary artery disease status post bypass grafting Chronic diastolic heart failure Hypertension Dyslipidemia COPD PLAN Continue current regimen for heart rate control. Diuretic management per primary care team. Nurse Practitioner note has been reviewed, I agree with a documented findings and plan of care. Patient was seen and examined. Objective - Vital Signs Vital signs: Vital Signs Temp 98.8 F 01/09/20 12:00 Pulse 100 01/09/20 12:40 Resp 20 01/09/20 12:00 BP 84/47 01/09/20 12:00 Pulse Ox 94 L 01/09/20 12:00 Intake & Output 01/08/20 01/09/20 01/09/20 18:59 06:59 18:59 Intake Total 1248 503.834 238 Output Total 2800 3550 Balance -4332 -6856.166 238 Weight 80 kg Intake: Intake, IV Titration 250 143.834 Amount Fluconazole in NaCl,Iso- 50 Osm 100 mg In Saline 1 50ml.bag @ 50 mls/hr IVPB DAILY JULISSA Rx#:[id number] Furosemide 100 mg In 100 143.834 Sodium Chloride 0.9% 90 ml @ 10 MG/HR 10 mls/hr IV .Q10H [facility] Rx#: [id number] ceFAZolin 2 gm In Sodium 100 Chloride 0.9% 50 ml @ 100 mls/hr IVPB Q8HR [facility] Rx# :[id number] Oral 998 360 238 Output: Urine 2800 3550 Other: Voiding Method Indwelling Catheter Indwelling Catheter Indwelling Catheter - Labs CBC & Chem 7: 01/09/20 06:26 01/09/20 06:26 Labs: Abnormal Lab Results - Last 24 Hours (Table) 01/09/20 01/09/20 Range/Units 06:26 06:26 RBC 3.28 L (4.30-5.90) m/uL Hgb 8.2 L (13.0-17.5) gm/dL Hct 28.3 L (39.0-53.0) % MCHC 29.1 L (31.0-37.0) g/dL RDW 18.6 H (11.5-15.5) % Chloride 91 L (98-107) mmol/L Carbon Dioxide 43 H* (22-30) mmol/L BUN 26 H (9-20) mg/dL Glucose 157 H (74-99) mg/dL Calcium 8.1 L (8.4-10.2) mg/dL Microbiology - Last 24 Hours (Table) 01/07/20 22:37 Gram Stain - Preliminary Leg - Right Wound Culture - Preliminary Group D Enterococcus Gram Neg Bacilli 01/07/20 17:34 Blood Culture - Preliminary Blood No Growth after 24 hours
[2020-01-09] MEDS ORDERED: LACTULOSE 20 GM/30 ML CUP PO PRN (15:11)
--- NOTE | 2020-01-09 15:36 | PN ---
PROGRESS NOTE DATE OF SERVICE: 01/09/2020 I am covering for Dr. Abraham. This is an 79-year-old gentleman admitted with CHF acute exacerbation, bilateral leg swelling and cellulitis is being closely monitored. The patient has some relative hypotension. The leg swelling is significantly reduced after Lasix drip at 10 mg/hour and wound culture showed group D Enterococcus and gram- negative bacilli. Dr. Fontenot also saw the patient and recommend Kefzol at this time. The patient is being closely monitored. PAST MEDICAL HISTORY: Reviewed. REVIEW OF SYSTEMS: CARDIOVASCULAR: No angina or palpitations. RESPIRATORY: As mentioned earlier. GI: No nausea, vomiting or diarrhea. : No dysuria. NERVOUS SYSTEM: No numbness or weakness. CURRENT MEDICATIONS: Reviewed include Tylenol, Ventolin, DuoNeb, Xanax, Lipitor, Symbicort, cefazolin, Lanoxin, Colace, Diflucan, Lasix. Neurontin, Dilaudid, Lopressor, Multivitamins, Narcan, Percocet, Protonix, Xarelto, Senokot, Spiriva, Zanaflex. PHYSICAL EXAMINATION: GENERAL: Patient is alert and oriented times three. VITAL SIGNS: Pulse 85, blood pressure 84/47, respirations 20, temperature 98.8, pulse ox 94% on 3 liters. HEENT: Conjunctivae normal. NECK: No jugular venous distention. RESPIRATORY: Breath sounds diminished at the bases. A few scattered rhonchi. HEART: S1 and S2, muffled. ABDOMEN: Soft, obese, no tenderness. EXTREMITIES: Bilateral leg edema and leg cellulitis also. NERVOUS: No focal deficits. LABS: WBC 8.2, hemoglobin is 8.2, sodium 138, potassium 4.1. ASSESSMENT: 1. Bilateral leg cellulitis and swelling with failure of outpatient treatment with group D Enterococcus and as well as gram-negative bacilli. Final ID pending. 2. Congestive heart failure acute exacerbation with acute on chronic diastolic dysfunction with ejection fraction of 50-60%, status post IV Lasix drip. 3. Anemia, normocytic anemia of chronic disease. 4. Thrombocytopenia. 5. Mild protein calorie malnutrition. 6. History of coronary artery disease. 7. History of chronic obstructive pulmonary disease. 8. Hypertension. 9. History of myocardial infarction. 10.History of degenerative joint disease. 11.History of pneumonia. 12.History of chronic hypoxic respiratory failure. 13.History of aspiration pneumonia. 14.Chronic back pain. 15.History of Methicillin resistant Staphylococcus aureus. 16.History of coronary artery disease with coronary artery bypass graft. 17.History of nicotine dependence. 18.FULL CODE. RECOMMENDATIONS AND DISCUSSION: In this 79-year-old gentleman who presented with multiple complex medical issues, we will monitor the patient closely. Continue the current medications. Continue with broad-spectrum IV antibiotics. Stop the IV Lasix drip and initiate Lasix 40 mg IV b.i.d. Hold if systolic less than 100. Otherwise, continue to monitor and continue the rest of the medications. Discussed with the family and Dr. Abraham will follow tomorrow. MMODL / IJN: [id number] /
--- NOTE | 2020-01-09 16:56 | CT ---
EXAMINATION TYPE: CT brain wo con DATE OF EXAM: 01/09/2020 COMPARISON: 11/23/2019 HISTORY: Altered mental status. CT DLP: 1217.4 mGycm Automated exposure control for dose reduction was used. There is cerebral cortical atrophy. There is no mass effect nor midline shift. There is no sign of in tracranial hemorrhage. Calvarium is intact. Sella turcica appears normal. Skull base is intact. IMPRESSION: Cerebral atrophy. No acute intracranial abnormality. There is clearing of the mild left side subdural hygroma compared to old exam.
[2020-01-09] MEDS: RIVAROXABAN 20 MG TAB PO SCH (18:04)
[2020-01-09] MEDS: ATORVASTATIN 40 MG TAB PO SCH (20:37)
[2020-01-09] MEDS: FUROSEMIDE 10 MG/ML 4 ML VIAL IV SCH (20:37)
--- NOTE | 2020-01-10 02:02 | PN ---
PROGRESS NOTE DATE OF SERVICE: 01/09/2020 REASON FOR FOLLOWUP: Bilateral lower extremity cellulitis. INTERVAL HISTORY: The patient is currently afebrile. The patient is breathing comfortably. Denies having any chest pain or shortness of breath. Did have a cough with some clear sputum. No abdominal pain. Lower extremity swelling and redness has improved. PHYSICAL EXAMINATION: Blood pressure 108/71 with a pulse of 93, temperature 99.6. He is 95% on 3 L nasal cannula. General description is an elderly male lying in bed in no distress. RESPIRATORY SYSTEM: Unlabored breathing, decreased breath sounds at the bases. No wheeze. HEART: S1, S2. Regular rate and rhythm. ABDOMEN: Soft, no tenderness. Legs are currently wrapped up. No drainage on the dressing. LABS: Hemoglobin 8.2, white count 8.2 with a creatinine 0.92. Local culture with group D Enterococcus and gram-negative bacilli. DIAGNOSTIC IMPRESSION AND PLAN: Patient with bilateral lower extremity cellulitis. Local culture now showing a group D Enterococcus and gram-negative bacilli. The patient's covered with vancomycin and Cefazolin switched over to Rocephin 2 grams daily and will monitor his clinical course closely. Discharge antibiotic will be based on the culture report. MMODL / IJN: [id number] /
[2020-01-10] MEDS: VANCOMYCIN 1,250 MG in SODIUM CHLORIDE 0.9% 250 ML IVPB SCH ×2 (06:36→17:59)
[2020-01-10] MEDS: PANTOPRAZOLE 40 MG TABLET PO SCH (06:36)
[2020-01-10 08:01] LABS: Anisocytosis Slight; Basophils % (A) 0 %; Eosinophils # (A) 0.2 k/uL (0-0.7); Eosinophils % (A) 2 %; HCT 28.6 % (39.0-53.0); HGB 8.4 gm/dL (13.0-17.5); Hypochromasia Marked; Lymphocytes # (A) 1.5 k/uL (1.0-4.8); Lymphocytes % (A) 17 %; MCH 25.3 pg (25.0-35.0); MCHC 29.2 g/dL (31.0-37.0); MCV 86.4 fL (80.0-100.0); Mean Platelet Volume 7.4; Monocytes # (A) 0.7 k/uL (0-1.0); Monocytes % (A) 8 %; Neutrophils % (A) 70 %; Platelet Count 207 k/uL (150-450); RBC 3.31 m/uL (4.30-5.90); RDW 18.5 % (11.5-15.5); WBC 8.6 k/uL (3.8-10.6)
[2020-01-10] MEDS: SYMBICORT 80-4.5 MCG INHALER INHALATION SCH ×2 (08:07→21:31)
[2020-01-10] MEDS: IPRATROPIUM-ALBUTEROL 3 ML NEB INHALATION SCH ×4 (08:07→21:31)
[2020-01-10 08:10] LABS: African American GFR (CKD) >90 (>60 ml/min/1.73 sqM); Blood Urea Nitrogen 23 mg/dL (9-20); Calcium 7.9 mg/dL (8.4-10.2); Chloride 94 mmol/L (98-107); Glucose 119 mg/dL (74-99); Non-African American GFR(CKD) 89 (>60 ml/min/1.73 sqM); Potassium 3.9 mmol/L (3.5-5.1); Sodium 137 mmol/L (137-145)
[2020-01-10 08:18] LABS: Anion Gap 2 mmol/L
[2020-01-10 08:21] LABS: Carbon Dioxide 41 mmol/L (22-30)
[2020-01-10] MEDS: CEFEPIME 2 GM in SODIUM CHLORIDE 0.9% 100 ML IVPB SCH ×2 (10:10→20:53)
[2020-01-10] MEDS: GABAPENTIN 300 MG CAP PO SCH ×2 (10:11→20:53)
[2020-01-10] MEDS: SENNOSIDES-DOCUSATE SODIUM 1 EACH TAB PO SCH ×2 (10:11→20:53)
[2020-01-10] MEDS: FLUCONAZOLE 100 MG TAB PO SCH (10:12)
[2020-01-10] MEDS: DIGOXIN 125 MCG TAB PO SCH (10:12)
[2020-01-10] MEDS: DOCUSATE 100 MG CAP PO SCH ×2 (10:12→20:53)
[2020-01-10] MEDS: METOPROLOL TARTRATE 25 MG TAB PO SCH ×2 (10:12→20:53)
[2020-01-10] MEDS: MULTIVITAMINS, THERA 1 EACH TAB PO SCH (12:52)
[2020-01-10] MEDS: SPIRONOLACTONE 25 MG TAB PO SCH (12:52)
[2020-01-10] MEDS: LACTULOSE 20 GM/30 ML CUP PO SCH ×4 (12:52→20:55)
[2020-01-10] MEDS: FUROSEMIDE 40 MG TAB PO SCH (12:52)
--- NOTE | 2020-01-10 15:05 | P.PN ---
Subjective Progress Note Date: 01/10/20 This is a pleasant 79-year-old occasion male past medical history significant for coronary artery disease status post bypass grafting with a QUEEN to LAD and SVG to diagonal, chronic persistent atrial fibrillation, COPD, hypertension, dyslipidemia and chronic diastolic heart failure. He follows in the office with Dr. Landeros. We have been asked to see in consultation for congestive heart failure. He presented to the hospital with symptoms of bilateral lower extremity edema. Patient is currently receiving treatment for lower extremity cellulitis. He is Continuing at this time to be on IV diuretics, no clear-cut evidence of acute congestive heart failure at this time. Let pressure 162/60 with a heart rate of 90, 93% on 3 L of oxygen. White blood cell count 8.6, hemoglobin 8.4, platelet count 207. Sodium 137, potassium 3.9, BUN 23, creatinine 0.6. We will discontinue the IV diuretics today and change room attendant to oral diuretics, add Aldactone 25 mg daily, check lytes BUN and creatinine in the morning. Objective - Vital Signs Vital signs: Vital Signs Temp 99.3 F 01/10/20 08:40 Pulse 100 01/10/20 12:20 Resp 18 01/10/20 12:20 BP 166/66 01/10/20 12:00 Pulse Ox 93 L 01/10/20 12:00 Intake & Output 01/09/20 01/10/20 01/10/20 18:59 06:59 18:59 Intake Total 474 240 237 Output Total 1000 1645 300 Balance -526 -1405 -63 Weight 74 kg Intake: Oral 474 240 237 Output: Urine 1000 1645 300 Other: Voiding Method Indwelling Catheter Indwelling Catheter Indwelling Catheter # Bowel Movements 1 - Exam PHYSICAL EXAMINATION Blood pressure 161/56 heart rate 96 afebrile and maintaining oxygen saturation on nasal cannula. CONSTITUTIONAL: No apparent distress. HEENT: Head is normocephalic. Pupils are equal, round. Sclerae anicteric. Mucous membranes of the mouth are moist. No JVD. No carotid bruit. CHEST EXAMINATION: Lungs are clear to auscultation. No chest wall tenderness is noted on palpation or with deep breathing. diminished bilaterally. HEART EXAMINATION: Irregular rate and rhythm. S1, S2 heard. Systolic ejection murmur at the left sternal border, no gallops or rub. ABDOMEN: Soft, nontender. Positive bowel sounds. EXTREMITIES: 2+ peripheral pulses, significant bilateral lower extremity nonpitting edema and no calf tenderness. Bilateral Jesus wraps in place. NEUROLOGIC EXAMINATION: Patient is awake, alert and oriented x3. - Labs CBC & Chem 7: 01/10/20 07:30 01/10/20 07:30 Labs: Abnormal Lab Results - Last 24 Hours (Table) 01/10/20 01/10/20 Range/Units 07:30 07:30 RBC 3.31 L (4.30-5.90) m/uL Hgb 8.4 L (13.0-17.5) gm/dL Hct 28.6 L (39.0-53.0) % MCHC 29.2 L (31.0-37.0) g/dL RDW 18.5 H (11.5-15.5) % Chloride 94 L (98-107) mmol/L Carbon Dioxide 41 H* (22-30) mmol/L BUN 23 H (9-20) mg/dL Glucose 119 H (74-99) mg/dL Calcium 7.9 L (8.4-10.2) mg/dL Microbiology - Last 24 Hours (Table) 01/07/20 22:37 Gram Stain - Preliminary Leg - Right Wound Culture - Preliminary Enterococcus faecalis Gram Neg Bacilli 01/07/20 17:34 Blood Culture - Preliminary Blood No Growth after 48 hours Assessment and Plan Plan: ASSESSMENT and plan #1 Bilateral lower extremity cellulitis #2 Anemia #3 Chronic persistent atrial fibrillation on long-term anticoagulation with variable ventricular rates. #4 Coronary artery disease status post bypass grafting #5 Chronic diastolic heart failure #6 Hypertension #7 Dyslipidemia #8 COPD Plan We'll discontinue the IV Lasix and change patient over to Lasix 40 mg daily. Add Aldactone 25 mg daily to the medication regime. We will follow this patient along with you now on an as-needed basis only, please don't hesitate to call with any questions. DNP note has been reviewed, I agree with a documented findings and plan of care. Patient was seen and examined.
--- NOTE | 2020-01-10 16:34 | P.PN ---
Subjective Progress Note Date: 01/10/20 This is an 79-year-old gentleman admitted with lower extremity cellulitis, and multiple other medical issues. Diuresing on IV push Lasix with 24-hour I&O reflecting a negative fluid balance. BUN trending up, currently 23, creatinine 0.69. Maintaining O2 sats in the 90s on 3 L nasal cannula O2. Brain CT reported cerebral atrophy, no acute intracranial abnormality with clearing of mild left-sided subdural hygroma compared to prior exam. Complains of constipation with no bowel movement 5 days. Loose productive cough with clear sputum. Afebrile, T-max 99.6. Preliminary wound culture reporting enterococcus faecalis and gram-negative bacilli. Antibiotics further adjusted to cefepime. Denies chest pain or increasing shortness of breath. Objective - Vital Signs Vital signs: Vital Signs Temp 99.3 F 01/10/20 08:40 Pulse 80 01/10/20 08:40 Resp 18 01/10/20 08:40 BP 101/55 01/10/20 08:40 Pulse Ox 97 01/10/20 08:40 Intake & Output 01/09/20 01/10/20 01/10/20 18:59 06:59 18:59 Intake Total 474 240 0 Output Total 1000 1645 300 Balance -526 -8675 -300 Weight 74 kg Intake: Oral 474 240 0 Output: Urine 1000 1645 300 Other: Voiding Method Indwelling Catheter Indwelling Catheter # Bowel Movements 1 - Exam GENERAL: The patient is alert and oriented x3, not in any acute distress. HEENT: Pupils are round and equally reacting to light. EOMI. No scleral icterus. No conjunctival pallor. Normocephalic, atraumatic.No thyromegaly. CARDIOVASCULAR: S1 and S2, irregular ,Systolic murmurs, rubs, or gallops. PULMONARY: Decreased air entry with lungs essentially clear. ABDOMEN: Soft, nontender, nondistended, normoactive bowel sounds. No palpable organomegaly. EXTREMITIES: Positive edema, Bilateral lower extremities with Jesus wrap dressings clean dry and intact. NEUROLOGICAL: Gross neurological examination did not reveal any focal deficits. SKIN: No rashes. Microbiology 01/07/20 22:37 Leg - Right Gram Stain - Preliminary 01/07/20 22:37 Leg - Right Wound Culture - Preliminary Enterococcus faecalis Gram Neg Bacilli 01/07/20 17:34 Blood Blood Culture - Preliminary No Growth after 48 hours - Labs CBC & Chem 7: 01/10/20 07:30 01/10/20 07:30 Labs: Abnormal Lab Results - Last 24 Hours (Table) 01/10/20 01/10/20 Range/Units 07:30 07:30 RBC 3.31 L (4.30-5.90) m/uL Hgb 8.4 L (13.0-17.5) gm/dL Hct 28.6 L (39.0-53.0) % MCHC 29.2 L (31.0-37.0) g/dL RDW 18.5 H (11.5-15.5) % Chloride 94 L (98-107) mmol/L Carbon Dioxide 41 H* (22-30) mmol/L BUN 23 H (9-20) mg/dL Glucose 119 H (74-99) mg/dL Calcium 7.9 L (8.4-10.2) mg/dL Microbiology - Last 24 Hours (Table) 01/07/20 22:37 Gram Stain - Preliminary Leg - Right Wound Culture - Preliminary Enterococcus faecalis Gram Neg Bacilli 01/07/20 17:34 Blood Culture - Preliminary Blood No Growth after 48 hours Assessment and Plan Assessment: Bilateral lower extremity cellulitis with chronic right medial ankle ulcer, pre liminary wound cultures reporting enterococcus faecalis and gram-negative bacilli. 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 Scheduled lactulose for complaints of constipation. Diuresing as per cardiology.Antibiotics as per infectious disease. Close monitoring of renal function, electrolytes with repeat labs ordered for a.m. PT/OT consulted along with social work for subacute rehab. The impression and plan of care has been dictated as directed. : I performed a history and examination of this patient, discussed the same with the dictator. I agree with the dictator's note ,documented as a scribe. Any additional findings or plans will be noted.
[2020-01-10] MEDS: RIVAROXABAN 20 MG TAB PO SCH (18:00)
[2020-01-10] MEDS: ATORVASTATIN 40 MG TAB PO SCH (20:52)
--- NOTE | 2020-01-11 00:26 | PN ---
PROGRESS NOTE DATE OF SERVICE: 01/10/2020 REASON FOR FOLLOWUP: Bilateral lower extremity wound and cellulitis. INTERVAL HISTORY: The patient is currently afebrile. The patient is breathing comfortably. The patient denies having any chest pain or shortness of breath or cough. No nausea, no vomiting. No abdominal pain or pain to the lower extremities. PHYSICAL EXAMINATION: Blood pressure 103/58 with a pulse of 92, temperature is 99.7. He is 98% on 3 L nasal cannula. General description is an elderly male lying in bed in no distress. RESPIRATORY SYSTEM: Unlabored breathing, clear to auscultation anteriorly. HEART: S1, S2. Regular rate and rhythm. ABDOMEN: Soft, no tenderness. Legs are currently wrapped up. No obvious drainage on the dressing. DIAGNOSTIC IMPRESSION AND PLAN: Patient with bilateral lower extremity ulcers with secondary cellulitis on this patient local culture showing a gram-negative Enterococcus. Patient is covered with vancomycin and cefepime, adjusting antibiotic further on the basis of the ID of this gram-negative and continue supportive care. MMODL / IJN: [id number] /
[2020-01-11] MEDS: FUROSEMIDE 10 MG/ML 4 ML VIAL IV SCH (01:58)
[2020-01-11] MEDS: oxyCODONE-APAP 10-325MG 1 EACH TAB PO PRN ×2 (04:23→23:58)
[2020-01-11] MEDS: VANCOMYCIN 1,250 MG in SODIUM CHLORIDE 0.9% 250 ML IVPB SCH ×2 (06:03→17:33)
[2020-01-11] MEDS: PANTOPRAZOLE 40 MG TABLET PO SCH (06:48)
[2020-01-11] MEDS: CEFEPIME 2 GM in SODIUM CHLORIDE 0.9% 100 ML IVPB SCH ×2 (08:26→21:15)
[2020-01-11] MEDS: GABAPENTIN 300 MG CAP PO SCH ×2 (08:27→21:15)
[2020-01-11] MEDS: LACTULOSE 20 GM/30 ML CUP PO SCH ×4 (08:27→21:15)
[2020-01-11] MEDS: FLUCONAZOLE 100 MG TAB PO SCH (08:27)
[2020-01-11] MEDS: FUROSEMIDE 40 MG TAB PO SCH (08:27)
[2020-01-11] MEDS: SPIRONOLACTONE 25 MG TAB PO SCH (08:27)
[2020-01-11] MEDS: DIGOXIN 125 MCG TAB PO SCH (08:27)
[2020-01-11] MEDS: METOPROLOL TARTRATE 25 MG TAB PO SCH ×2 (08:27→21:13)
[2020-01-11] MEDS: DOCUSATE 100 MG CAP PO SCH ×2 (08:27→21:13)
[2020-01-11] MEDS: SENNOSIDES-DOCUSATE SODIUM 1 EACH TAB PO SCH ×2 (08:27→21:15)
[2020-01-11] MEDS: IPRATROPIUM-ALBUTEROL 3 ML NEB INHALATION SCH ×4 (08:27→20:18)
[2020-01-11] MEDS: SYMBICORT 80-4.5 MCG INHALER INHALATION SCH ×3 (08:28→20:36)
[2020-01-11 08:52] LABS: African American GFR (CKD) >90 (>60 ml/min/1.73 sqM); Anion Gap 2 mmol/L; Blood Urea Nitrogen 22 mg/dL (9-20); Calcium 7.9 mg/dL (8.4-10.2); Chloride 97 mmol/L (98-107); Glucose 149 mg/dL (74-99); Non-African American GFR(CKD) >90 (>60 ml/min/1.73 sqM); Potassium 4.6 mmol/L (3.5-5.1); Sodium 139 mmol/L (137-145)
[2020-01-11 08:59] LABS: Carbon Dioxide 40 mmol/L (22-30)
[2020-01-11] MEDS ORDERED: FUROSEMIDE 40 MG TAB PO SCH (09:00)
[2020-01-11] MEDS: TIOTROPIUM 18 MCG/PUFF INHALER INHALATION SCH ×2 (09:23→17:18)
--- NOTE | 2020-01-11 11:13 | P.DS ---
Providers Date of admission: 01/07/20 18:31 Expected date of discharge: 01/11/20 Attending physician: Adams Abraham Consults: 01/07/20 20:01 Consult Physician Stat Consulting Provider: Deacon Leonardo Consult Reason/Comments: CHF Do you want consulting provider notified?: Yes 01/07/20 20:04 Consult Physician Stat Consulting Provider: Niko Fontenot Consult Reason/Comments: Leg leg cellulitis Do you want consulting provider notified?: Yes Primary care physician: Adams Abraham Hospital Course: Final Diagnoses: Bilateral lower extremity cellulitis with chronic right medial ankle ulcer, preliminary wound cultures reporting enterococcus faecalis and Acinetobacter kiesha/haemol Chronic hypoxic, hypercapnic respiratory failure secondary to Acute COPD exacerbation, acute on chronic diastolic CHF Chronic CHF exacerbation, diastolic dysfunction Severe pulmonary hypertension Anemia of chronic disease Gastroesophageal reflux disease Chronic Paroxysmal atrial fibrillation Hypothyroidism Osteoarthritis Ongoing Nicotine dependence 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 Diuresing on IV push Lasix with 24-hour I&O reflecting a negative fluid balance. BUN trending up, currently 23, creatinine 0.69. Maintaining O2 sats in the 90s on 3 L nasal cannula O2. Brain CT reported cerebral atrophy, no acute intracranial abnormality with clearing of mild left-sided subdural hygroma compared to prior exam. Complains of constipation with no bowel movement 5 days. Loose productive cough with clear sputum. Afebrile, T-max 99.6. Preliminary wound culture reporting enterococcus faecalis and gram-negative bacilli. Antibiotics further adjusted to cefepime. Denies chest pain or increasing shortness of breath. Maintained on IV antibiotics, oral Lasix, Aldactone. Wound cultures reporting enterococcus faecalis,Acinetobacter kiesha/haemol. Significant clinical improvement. Patient will be discharged to subacute rehab. today in a stable condition with guarded prognosis, pending final DC recommendations/antibiotics/Wound Care and clearance from infectious disease. Microbiology 01/07/20 22:37 Leg - Right Gram Stain - Final 01/07/20 22:37 Leg - Right Wound Culture - Final Enterococcus faecalis Acinetobacter kiesha/haemol 01/07/20 17:34 Blood Blood Culture - Preliminary No Growth after 72 hours The impression and plan of care has been dictated as directed. : I performed a history and examination of this patient, discussed the same with the dictator. I agree with the dictator's note ,documented as a scribe. Any additional findings or plans will be noted. Patient Condition at Discharge: Stable Plan - Discharge Summary Discharge Rx Participant: No New Discharge Prescriptions: New Spironolactone [Aldactone] 25 mg PO DAILY tab Lactulose [Cephulac] 20 gm PO TID PRN ml PRN Reason: Constipation Fluconazole [Diflucan] 100 mg PO DAILY tab Digoxin [Lanoxin] 125 mcg PO DAILY tab Pantoprazole [Protonix] 40 mg PO AC-BRKFST tablet. SILVER sulfADIAZINE CREAM [Silvadene Cream] 1 applic TOPICAL BID applic Acetaminophen Tab [Tylenol] 650 mg PO Q6HR PRN tab PRN Reason: Mild Pain Or Fever > 100.5 Continue Metoprolol Tartrate [Lopressor] 25 mg PO BID Rivaroxaban [Xarelto] 20 mg PO PC-SUPPER Furosemide 40 mg PO DAILY Fluticasone/Salmeterol [Advair 250-50 Diskus] 1 puff INHALATION RT-BID Tiotropium 18 Mcg/Puff [Spiriva] 1 cap INHALATION RT-DAILY Atorvastatin [Lipitor] 40 mg PO HS Multivitamin [Men's Multi-Vitamin] 1 tab PO DAILY Albuterol Sulfate [Ventolin HFA] 2 puff INHALATION RT-QID PRN PRN Reason: Shortness Of Breath Ipratropium-Albuterol Nebulize [Duoneb 0.5 mg-3 mg/3 ml Soln] 3 ml INHALATION RT-QID Docusate [Colace] 100 mg PO BID cap tiZANidine HCL [Zanaflex] 4 mg PO BID PRN PRN Reason: Muscle Spasm Sennosides-Docusate Sodium [Senokot-S] 2 tab PO BID Gabapentin 600 mg PO BID #6 tab oxyCODONE HCL/ACETAMINOPHEN [Percocet 10-325 mg] 1 tab PO TID PRN #9 tab PRN Reason: Pain Discharge Medication List Metoprolol Tartrate [Lopressor] 25 mg PO BID 08/06/13 [History] Rivaroxaban [Xarelto] 20 mg PO PC-SUPPER 08/06/13 [History] Furosemide 40 mg PO DAILY 08/09/13 [History] Fluticasone/Salmeterol [Advair 250-50 Diskus] 1 puff INHALATION RT-BID 08/18/14 [History] Tiotropium 18 Mcg/Puff [Spiriva] 1 cap INHALATION RT-DAILY 08/18/14 [History] Atorvastatin [Lipitor] 40 mg PO HS 01/20/18 [History] Multivitamin [Men's Multi-Vitamin] 1 tab PO DAILY 01/20/18 [History] Albuterol Sulfate [Ventolin HFA] 2 puff INHALATION RT-QID PRN 11/22/19 [History] Ipratropium-Albuterol Nebulize [Duoneb 0.5 mg-3 mg/3 ml Soln] 3 ml INHALATION RT -QID 11/22/19 [History] Docusate [Colace] 100 mg PO BID cap 11/25/19 [Rx] tiZANidine HCL [Zanaflex] 4 mg PO BID PRN 12/20/19 [History] Sennosides-Docusate Sodium [Senokot-S] 2 tab PO BID 01/03/20 [History] Acetaminophen Tab [Tylenol] 650 mg PO Q6HR PRN tab 01/11/20 [Rx] Digoxin [Lanoxin] 125 mcg PO DAILY tab 01/11/20 [Rx] Fluconazole [Diflucan] 100 mg PO DAILY tab 01/11/20 [Rx] Gabapentin 600 mg PO BID #6 tab 01/11/20 [Rx] Lactulose [Cephulac] 20 gm PO TID PRN ml 01/11/20 [Rx] Pantoprazole [Protonix] 40 mg PO AC-BRKFST tablet.dr 01/11/20 [Rx] SILVER sulfADIAZINE CREAM [Silvadene Cream] 1 applic TOPICAL BID applic 01/11/20 [Rx] Spironolactone [Aldactone] 25 mg PO DAILY tab 01/11/20 [Rx] oxyCODONE HCL/ACETAMINOPHEN [Percocet 10-325 mg] 1 tab PO TID PRN #9 tab 01/11/20 [Rx] Follow up Appointment(s)/Referral(s): [facility], [NON-STAFF] - Adams Abraham DO [Primary Care Provider] - 1 Week (After discharge from subacute rehab) Activity/Diet/Wound Care/Special Instructions: ECF: Antibiotics/Wound Care as per ID CBC,BMP in 3 days Discharge Disposition: TRANSFER TO SNF/ECF
--- NOTE | 2020-01-11 12:51 | PN ---
PROGRESS NOTE DATE OF SERVICE: 01/11/2020 REASON FOR FOLLOWUP: Bilateral lower extremity venostasis ulcer and cellulitis. INTERVAL HISTORY: The patient is currently afebrile. Patient is feeling better. Breathing comfortably. Denies having any chest pain or cough. No nausea, no vomiting, no abdominal pain. Overall swelling in the legs have much improved. PHYSICAL EXAMINATION: Blood pressure 197/52 with a pulse of 73, temperature 98.4. He is 96% on 3 L nasal cannula. General description is an elderly male, lying in bed in no distress. RESPIRATORY SYSTEM: Unlabored breathing, clear to auscultation anteriorly. HEART: S1, S2. Regular rate and rhythm. ABDOMEN: Soft, no tenderness. Leg swelling has much improved. LABS: Creatinine 0.6, local wound culture with Enterococcus faecalis Bactrim. DIAGNOSTIC IMPRESSION AND PLAN: Patient with bilateral lower extremity wounds. No worsening cellulitis, clinical improvement on current antibiotic therapy. Antibiotic was switched to oral Cipro and Augmentin for 1 week. Local care to continue as ordered and close outpatient followup. MMODL / IJN: [id number] /
[2020-01-11] MEDS: MULTIVITAMINS, THERA 1 EACH TAB PO SCH (13:14)
[2020-01-11] MEDS: ACETAMINOPHEN TAB 325 MG TAB PO PRN ×2 (15:26→21:16)
[2020-01-11 17:29] LABS: Anisocytosis Slight; Basophils % (A) 0 %; Eosinophils # (A) 0.1 k/uL (0-0.7); Eosinophils % (A) 2 %; HCT 26.7 % (39.0-53.0); HGB 7.9 gm/dL (13.0-17.5); Hypochromasia Marked; Lymphocytes # (A) 0.9 k/uL (1.0-4.8); Lymphocytes % (A) 11 %; MCH 25.9 pg (25.0-35.0); MCHC 29.7 g/dL (31.0-37.0); Mean Platelet Volume 7.1; Monocytes # (A) 0.6 k/uL (0-1.0); Monocytes % (A) 7 %; Neutrophils # (A) 6.6 k/uL (1.3-7.7); Neutrophils % (A) 78 %; Platelet Count 211 k/uL (150-450); RBC 3.07 m/uL (4.30-5.90); RDW 18.5 % (11.5-15.5); WBC 8.5 k/uL (3.8-10.6)
[2020-01-11] MEDS: RIVAROXABAN 20 MG TAB PO SCH (17:33)
[2020-01-11 17:37] LABS: African American GFR (CKD) >90 (>60 ml/min/1.73 sqM); Anion Gap 1 mmol/L; Blood Urea Nitrogen 26 mg/dL (9-20); Chloride 95 mmol/L (98-107); Glucose 141 mg/dL (74-99); Non-African American GFR(CKD) 85 (>60 ml/min/1.73 sqM); Potassium 4.7 mmol/L (3.5-5.1); Sodium 136 mmol/L (137-145)
[2020-01-11 17:44] LABS: Carbon Dioxide 40 mmol/L (22-30)
[2020-01-11 18:37] LABS: Amorphous Sediment,Urine Moderate /hpf; Appearance,Urine Turbid (Clear); Bacteria,Urine Occasional /hpf; Bilirubin,Urine Negative (Negative); Blood,Urine Large (Negative); Color,Urine Yellow; Glucose,Urine (UA) Negative (Negative); Hyaline Casts,Urine 4 /lpf (0-2); Ketones,Urine Trace (Negative); Leukocyte Esterase,Urine Small (Negative); Mucus,Urine Rare /hpf; Nitrite,Urine Negative (Negative); Protein,Urine 1+ (Negative); RBC,Urine >182 /hpf (0-5); Specific Gravity,Urine 1.023 (1.001-1.035); Squamous Epithelial Cell,Urine <1 /hpf (0-4); Urobilinogen,Urine <2.0 mg/dL (<2.0); WBC,Urine 72 /hpf (0-5)
[2020-01-11] MEDS: ATORVASTATIN 40 MG TAB PO SCH (21:13)
[2020-01-12] MEDS: VANCOMYCIN 1,250 MG in SODIUM CHLORIDE 0.9% 250 ML IVPB SCH (05:56)
[2020-01-12] MEDS: PANTOPRAZOLE 40 MG TABLET PO SCH (06:44)
[2020-01-12] MEDS: IPRATROPIUM-ALBUTEROL 3 ML NEB INHALATION SCH ×2 (07:15→11:12)
[2020-01-12 08:29] LABS: African American GFR (CKD) >90 (>60 ml/min/1.73 sqM); Non-African American GFR(CKD) 79 (>60 ml/min/1.73 sqM)
[2020-01-12] MEDS: SYMBICORT 80-4.5 MCG INHALER INHALATION SCH (08:42)
[2020-01-12] MEDS: ACETAMINOPHEN TAB 325 MG TAB PO PRN (09:54)
[2020-01-12] MEDS: GABAPENTIN 300 MG CAP PO SCH (09:57)
[2020-01-12] MEDS: FLUCONAZOLE 100 MG TAB PO SCH (09:58)
[2020-01-12] MEDS: SENNOSIDES-DOCUSATE SODIUM 1 EACH TAB PO SCH (10:00)
[2020-01-12] MEDS: SPIRONOLACTONE 25 MG TAB PO SCH (10:01)
[2020-01-12] MEDS: METOPROLOL TARTRATE 25 MG TAB PO SCH (10:01)
[2020-01-12] MEDS: DOCUSATE 100 MG CAP PO SCH (10:01)
[2020-01-12] MEDS: DIGOXIN 125 MCG TAB PO SCH (10:03)
[2020-01-12] MEDS: CEFEPIME 2 GM in SODIUM CHLORIDE 0.9% 100 ML IVPB SCH (10:04)
[2020-01-12] MEDS: LACTULOSE 20 GM/30 ML CUP PO SCH (10:07)
[2020-01-12] MEDS: FUROSEMIDE 40 MG TAB PO SCH (10:30)
[2020-01-12 11:49] VITALS: BP 92/56; PULSE 97; RESP 20
[2020-01-12 12:08] VITALS: TEMP 98.1
== END 2020-01-12 13:50 | DRG 871 ==
LOC: EC 15:59 → 6NMEDSUR 18:31 → 3SCARD 20:51
PROVIDERS: ADMIT Family Medicine; ATTEND Family Medicine
DX: A41.81 Sepsis due to Enterococcus (principal); I50.33 Acute on chronic diastolic (congestive) heart failure; L03.115 Cellulitis of right lower limb; L97.319 Non-pressure chronic ulcer of right ankle with unspecified severity; E44.1 Mild protein-calorie malnutrition; I48.19 Other persistent atrial fibrillation; J44.1 Chronic obstructive pulmonary disease with (acute) exacerbation; J96.11 Chronic respiratory failure with hypoxia; J96.12 Chronic respiratory failure with hypercapnia; L03.116 Cellulitis of left lower limb; L97.929 Non-pressure chronic ulcer of unspecified part of left lower leg with unspecified severity; A41.59 Other Gram-negative sepsis; B37.2 Candidiasis of skin and nail; D63.8 Anemia in other chronic diseases classified elsewhere; D69.6 Thrombocytopenia, unspecified; E03.9 Hypothyroidism, unspecified; Z68.25 Body mass index [BMI] 25.0-25.9, adult; E78.5 Hyperlipidemia, unspecified; F17.210 Nicotine dependence, cigarettes, uncomplicated; G89.29 Other chronic pain; I11.0 Hypertensive heart disease with heart failure; I25.2 Old myocardial infarction; Z20.828 Contact with and (suspected) exposure to other viral communicable diseases; I25.10 Atherosclerotic heart disease of native coronary artery without angina pectoris; I27.20 Pulmonary hypertension, unspecified; I83.009 Varicose veins of unspecified lower extremity with ulcer of unspecified site; J84.10 Pulmonary fibrosis, unspecified; K21.9 Gastro-esophageal reflux disease without esophagitis; K59.00 Constipation, unspecified; M19.90 Unspecified osteoarthritis, unspecified site; M21.371 Foot drop, right foot; R73.03 Prediabetes; M54.9 Dorsalgia, unspecified; Z79.01 Long term (current) use of anticoagulants; Z79.899 Other long term (current) drug therapy; Z86.14 Personal history of Methicillin resistant Staphylococcus aureus infection; Z87.01 Personal history of pneumonia (recurrent); Z86.010 Personal history of colon polyps; Z95.1 Presence of aortocoronary bypass graft; Z96.643 Presence of artificial hip joint, bilateral; R29.6 Repeated falls; Z91.81 History of falling; I07.1 Rheumatic tricuspid insufficiency
CPT/HCPCS: 36415; 70450; 71045; 80048; 80053; 80202; 81001; 82565; 83605; 83735; 83880; 85025; 85610; 85730; 86140; 87040; 87070; 87077; 87086; 87186; 87205; 93005; 93970; 94640; 96365; 96366; 96375; 99285

== ENCOUNTER 2020-02-06 19:15 | Inpatient (IN) | payer MEDICARE ==
[2020-02-06] MEDS ORDERED: ACETAMINOPHEN TAB 500 MG TAB PO STA (19:21)
[2020-02-06] MEDS ORDERED: VANCOMYCIN IV PER PHARMACY 1 EACH MISC MISCELLANE PRN (19:21)
[2020-02-06] MEDS ORDERED: PIPERACILLIN-TAZOBACTAM 3.375 GM in SODIUM CHLORIDE 0.9% 100 ML IVPB STA (19:21)
[2020-02-06 20:04] LABS: Anisocytosis Slight; Basophils % (A) 0 %; Eosinophils # (A) 0.2 k/uL (0-0.7); Eosinophils % (A) 2 %; HCT 30.9 % (39.0-53.0); Hypochromasia Marked; Lymphocytes # (A) 1.5 k/uL (1.0-4.8); Lymphocytes % (A) 18 %; MCH 26.2 pg (25.0-35.0); MCHC 30.6 g/dL (31.0-37.0); MCV 85.7 fL (80.0-100.0); Mean Platelet Volume 7.5; Monocytes # (A) 0.8 k/uL (0-1.0); Monocytes % (A) 9 %; Neutrophils # (A) 5.7 k/uL (1.3-7.7); Neutrophils % (A) 68 %; Platelet Count 156 k/uL (150-450); RDW 17.9 % (11.5-15.5); WBC 8.3 k/uL (3.8-10.6)
[2020-02-06] MEDS: SODIUM CHLORIDE 0.9% 500 ML 500 ML IV SCH ×2 (20:04→21:15)
--- NOTE | 2020-02-06 20:04 | ED ---
Fever HPI - General Chief Complaint: Fever Stated Complaint: Fever, Afib Time Seen by Provider: 02/06/20 19:16 Source: patient, EMS Mode of arrival: EMS Limitations: physical limitation - History of Present Illness Initial Comments: Patient presents with fever, hypoxemia, altered mental status. He has a history of a decubitus ulcer, as well as peripheral extremity cellulitis. According to the EMS crew, the patient was altered on arrival, although better compared towhen his initially called for EMS. Patient was hypoxic. They increased his oxygen. Patient is currently denying any chest pain or back pain. He has no belly pain. He has no nausea or vomiting. He does have fevers. He has redness of the legs. He denies any neck pain or stiffness. - Related Data Home Medications Medication Instructions Recorded Confirmed Metoprolol Tartrate [Lopressor] 25 mg PO BID 08/06/13 01/07/20 Rivaroxaban [Xarelto] 20 mg PO PC-SUPPER 08/06/13 01/07/20 Furosemide 40 mg PO DAILY 08/09/13 01/07/20 Fluticasone/Salmeterol [Advair 1 puff INHALATION RT-BID 08/18/14 01/07/20 250-50 Diskus] Tiotropium 18 Mcg/Puff [Spiriva] 1 cap INHALATION RT-DAILY 08/18/14 01/07/20 Atorvastatin [Lipitor] 40 mg PO HS 01/20/18 01/07/20 Multivitamin [Men's Multi-Vitamin] 1 tab PO DAILY 01/20/18 01/07/20 Albuterol Sulfate [Ventolin HFA] 2 puff INHALATION RT-QID PRN 11/22/19 01/07/20 Ipratropium-Albuterol Nebulize 3 ml INHALATION RT-QID 11/22/19 01/07/20 [Duoneb 0.5 mg-3 mg/3 ml Soln] tiZANidine HCL [Zanaflex] 4 mg PO BID PRN 12/20/19 01/07/20 Sennosides-Docusate Sodium 2 tab PO BID 01/03/20 01/07/20 [Senokot-S] Previous Rx's Medication Instructions Recorded Docusate [Colace] 100 mg PO BID cap 11/25/19 Acetaminophen Tab [Tylenol] 650 mg PO Q6HR PRN tab 01/11/20 Amoxicillin/Potassium Clav 1 tab PO Q12HR #14 tab 01/11/20 [Augmentin 875-125 Tablet] Ciprofloxacin HCl [Cipro] 500 mg PO Q12H #14 tab 01/11/20 Digoxin [Lanoxin] 125 mcg PO DAILY tab 01/11/20 Gabapentin 600 mg PO BID #6 tab 01/11/20 Lactulose [Cephulac] 20 gm PO TID PRN ml 01/11/20 Pantoprazole [Protonix] 40 mg PO AC-BRKFST tablet. 01/11/20 SILVER sulfADIAZINE CREAM 1 applic TOPICAL BID applic 01/11/20 [Silvadene Cream] Spironolactone [Aldactone] 25 mg PO DAILY tab 01/11/20 oxyCODONE HCL/ACETAMINOPHEN 1 tab PO TID PRN #9 tab 01/11/20 [Percocet 10-325 mg] Allergies Allergy/AdvReac Type Severity Reaction Status Date / Time No Known Allergies Allergy Verified 02/06/20 19:30 Review of Systems ROS Statement: Those systems with pertinent positive or pertinent negative responses have been documented in the HPI. ROS Other: All systems not noted in ROS Statement are negative. Past Medical History Past Medical History: Atrial Fibrillation, Heart Failure, COPD, Hypertension, Myocardial Infarction (AR), Musculoskeletal Disorder, Osteoarthritis (OA), Pneumonia, Thyroid Disorder Additional Past Medical History / Comment(s): left breast mass HX OF COLON POLYPS. HX RIGHT BREAST MASS. O2 AT 2L NC @HS AND PRN. Hx Aspiration Pneumonia R/T "FLAPPER." HX OF THYROID PROBLEM - NO TX NOW. CHRONIC BACK PAIN, JAIME LEG NT. RT FOOT/ANKLE EDEMA, WEARS TEDS. JAIME CTS Last Myocardial Infarction Date:: 1987 History of Any Multi-Drug Resistant Organisms: MRSA Date of last positivie culture/infection: 1988-chest, 03/2012-01/2013 ankle sore MDRO Source:: staph after open heart; Right Ankle pressure sore Past Surgical History: Back Surgery, Coronary Bypass/CABG, Joint Replacement, Orthopedic Surgery Additional Past Surgical History / Comment(s): left carpel tunnel, CARPAL TUNNEL RIGHT x 2. CABG 1987 X2. JAIME SCOPES KNEES. Jaime Hip Replacement, Nicholas Fundoplicaton. Rt Shoulder Rotator Cuff. BACK X2. HX OF EPIDURALS FOR PAIN. Past Anesthesia/Blood Transfusion Reactions: No Reported Reaction Past Psychological History: No Psychological Hx Reported Smoking Status: Former smoker Past Alcohol Use History: None Reported Past Drug Use History: None Reported - Past Family History Daughter(s) Family Medical History: Cancer Father History Unknown: Yes Mother Family Medical History: No Reported History General Exam Limitations: no limitations, physical limitation General appearance: alert, in no apparent distress Head exam: Present: atraumatic Eye exam: Present: normal appearance Pupils: Present: normal accommodation ENT exam: Present: normal exam, normal oropharynx Neck exam: Present: normal inspection. Absent: tenderness, meningismus Respiratory exam: Present: wheezes Cardiovascular Exam: Present: irregular rhythm GI/Abdominal exam: Present: soft. Absent: tenderness Rectal exam: Present: deferred Extremities exam: Present: pedal edema. Absent: tenderness Back exam: Present: normal inspection. Absent: tenderness Neurological exam: Present: alert, oriented X3 Psychiatric exam: Present: normal affect, normal mood Skin exam: Present: erythema Course Vital Signs 02/06/20 02/06/20 02/06/20 19:30 19:35 20:15 Temperature 99.5 F Pulse Rate 78 73 80 Respiratory 18 18 18 Rate Blood Pressure 108/68 102/63 102/63 O2 Sat by Pulse 93 L 95 92 L Oximetry Medical Decision Making - Medical Decision Making atient has sources of infection, so I ordered blood cultures and IV antibiotics. On reevaluation after increasing his oxygen and giving him some fluids he is back to his mental baseline. He is alert and oriented 3, able to answer que stions appropriately. Patient will be admitted to the hospital. - Lab Data Result diagrams: 02/06/20 19:46 02/06/20 19:46 Lab Results 02/06/20 02/06/20 02/06/20 Range/Units 19:46 19:46 19:46 WBC 8.3 (3.8-10.6) k/uL RBC 3.60 L (4.30-5.90) m/uL Hgb 9.5 L D (13.0-17.5) gm/dL Hct 30.9 L (39.0-53.0) % MCV 85.7 (80.0-100.0) fL MCH 26.2 (25.0-35.0) pg MCHC 30.6 L (31.0-37.0) g/dL RDW 17.9 H (11.5-15.5) % Plt Count 156 (150-450) k/uL MPV 7.5 Neutrophils % 68 % Lymphocytes % 18 % Monocytes % 9 % Eosinophils % 2 % Basophils % 0 % Neutrophils # 5.7 (1.3-7.7) k/uL Lymphocytes # 1.5 (1.0-4.8) k/uL Monocytes # 0.8 (0-1.0) k/uL Eosinophils # 0.2 (0-0.7) k/uL Basophils # 0.0 (0-0.2) k/uL Hypochromasia Marked Anisocytosis Slight PT 16.0 H (9.0-12.0) sec INR 1.6 H (<1.2) APTT 40.9 H (22.0-30.0) sec Sodium (137-145) mmol/L Potassium (3.5-5.1) mmol/L Chloride (98-107) mmol/L Carbon Dioxide (22-30) mmol/L Anion Gap mmol/L BUN (9-20) mg/dL Creatinine (0.66-1.25) mg/dL Est GFR (CKD-EPI)AfAm (>60 ml/min/1.73 sqM) Est GFR (CKD-EPI)NonAf (>60 ml/min/1.73 sqM) Glucose (74-99) mg/dL Plasma Lactic Acid Gio (0.7-2.0) mmol/L Calcium (8.4-10.2) mg/dL Total Bilirubin (0.2-1.3) mg/dL AST (17-59) U/L ALT (4-49) U/L Alkaline Phosphatase (38-126) U/L Total Protein (6.3-8.2) g/dL Albumin (3.5-5.0) g/dL Urine Color Light Yellow Urine Appearance Clear (Clear) Urine pH 5.0 (5.0-8.0) Ur Specific [place] 1.013 (1.001-1.035) Urine Protein Negative (Negative) Urine Glucose (UA) Negative (Negative) Urine Ketones Negative (Negative) Urine Blood Negative (Negative) Urine Nitrite Negative (Negative) Urine Bilirubin Negative (Negative) Urine Urobilinogen <2.0 (<2.0) mg/dL Ur Leukocyte Esterase Negative (Negative) 02/06/20 02/06/20 Range/Units 19:46 19:46 WBC (3.8-10.6) k/uL RBC (4.30-5.90) m/uL Hgb (13.0-17.5) gm/dL Hct (39.0-53.0) % MCV (80.0-100.0) fL MCH (25.0-35.0) pg MCHC (31.0-37.0) g/dL RDW (11.5-15.5) % Plt Count (150-450) k/uL MPV Neutrophils % % Lymphocytes % % Monocytes % % Eosinophils % % Basophils % % Neutrophils # (1.3-7.7) k/uL Lymphocytes # (1.0-4.8) k/uL Monocytes # (0-1.0) k/uL Eosinophils # (0-0.7) k/uL Basophils # (0-0.2) k/uL Hypochromasia Anisocytosis PT (9.0-12.0) sec INR (<1.2) APTT (22.0-30.0) sec Sodium 139 (137-145) mmol/L Potassium 4.6 (3.5-5.1) mmol/L Chloride 103 (98-107) mmol/L Carbon Dioxide 33 H (22-30) mmol/L Anion Gap 3 mmol/L BUN 26 H (9-20) mg/dL Creatinine 0.72 (0.66-1.25) mg/dL Est GFR (CKD-EPI)AfAm >90 (>60 ml/min/1.73 sqM) Est GFR (CKD-EPI)NonAf 87 (>60 ml/min/1.73 sqM) Glucose 104 H (74-99) mg/dL Plasma Lactic Acid Gio 0.9 (0.7-2.0) mmol/L Calcium 9.0 (8.4-10.2) mg/dL Total Bilirubin 0.5 (0.2-1.3) mg/dL AST 37 (17-59) U/L ALT 12 (4-49) U/L Alkaline Phosphatase 61 (38-126) U/L Total Protein 6.1 L (6.3-8.2) g/dL Albumin 3.4 L (3.5-5.0) g/dL Urine Color Urine Appearance (Clear) Urine pH (5.0-8.0) Ur Specific [place] (1.001-1.035) Urine Protein (Negative) Urine Glucose (UA) (Negative) Urine Ketones (Negative) Urine Blood (Negative) Urine Nitrite (Negative) Urine Bilirubin (Negative) Urine Urobilinogen (<2.0) mg/dL Ur Leukocyte Esterase (Negative) 02/06/20 20:04 twelve-lead EKG shows ventricular rate 81 bpm, no P waves are present, the QRS complexes are wide, there is no ST elevation or depression, and interpreted by me as atrial fibrillation. Disposition Clinical Impression: Bacteremia Disposition: ADMITTED IP TO THIS HOSP Condition: Fair Is patient prescribed a controlled substance at d/c from ED?: No Referrals: Adams Abraham DO [Primary Care Provider] - 1-2 days
[2020-02-06 20:14] LABS: ALT 12 U/L (4-49); AST 37 U/L (17-59); African American GFR (CKD) >90 (>60 ml/min/1.73 sqM); Albumin 3.4 g/dL (3.5-5.0); Alkaline Phosphatase 61 U/L (38-126); Anion Gap 3 mmol/L; Blood Urea Nitrogen 26 mg/dL (9-20); Carbon Dioxide 33 mmol/L (22-30); Chloride 103 mmol/L (98-107); Glucose 104 mg/dL (74-99); Non-African American GFR(CKD) 87 (>60 ml/min/1.73 sqM); Potassium 4.6 mmol/L (3.5-5.1); Sodium 139 mmol/L (137-145); Total Bilirubin 0.5 mg/dL (0.2-1.3); Total Protein 6.1 g/dL (6.3-8.2)
--- NOTE | 2020-02-06 20:22 | XR ---
EXAMINATION TYPE: XR chest 2V DATE OF EXAM: 02/06/2020 COMPARISON: 01/07/2020 HISTORY: Short of breath. Fever TECHNIQUE: FINDINGS: Heart is enlarged. There is no heart failure. Lungs are clear of consolidation. There are n o hilar masses. There are sternal wires. IMPRESSION: Cardiomegaly. No active cardiopulmonary disease. No change.
[2020-02-06 20:28] LABS: HGB 9.5 gm/dL (13.0-17.5); INR 1.6 (<1.2); Partial Thromboplastin Time 40.9 sec (22.0-30.0)
[2020-02-06 20:29] LABS: Appearance,Urine Clear (Clear); Bilirubin,Urine Negative (Negative); Blood,Urine Negative (Negative); Color,Urine Light Yellow; Glucose,Urine (UA) Negative (Negative); Ketones,Urine Negative (Negative); Leukocyte Esterase,Urine Negative (Negative); Nitrite,Urine Negative (Negative); Protein,Urine Negative (Negative); Specific Gravity,Urine 1.013 (1.001-1.035); Urobilinogen,Urine <2.0 mg/dL (<2.0)
[2020-02-06] MEDS ORDERED: VANCOMYCIN 1,500 MG in SODIUM CHLORIDE 0.9% 250 ML IVPB ONE (20:30)
[2020-02-06] MEDS ORDERED: ONDANSETRON 4 MG/2 ML VIAL IVP PRN (20:32)
[2020-02-06] MEDS ORDERED: MAG HYDROX/AL HYDROX/SIMETH 30 ML CUP PO PRN (20:32)
[2020-02-06] MEDS ORDERED: ACETAMINOPHEN TAB 325 MG TAB PO PRN (20:32)
[2020-02-06] MEDS ORDERED: NALOXONE 0.4 MG/ML 1 ML VIAL IV PRN (20:32)
[2020-02-06] MEDS ORDERED: tiZANidine 4 MG TAB PO PRN (20:35)
[2020-02-06] MEDS ORDERED: TEMAZEPAM 15 MG CAP PO PRN (21:00)
[2020-02-06] MEDS: ATORVASTATIN 40 MG TAB PO SCH (21:39)
[2020-02-06] MEDS: DOCUSATE 100 MG CAP PO SCH (21:39)
[2020-02-06] MEDS: METOPROLOL TARTRATE 25 MG TAB PO SCH (21:39)
[2020-02-06] MEDS: GABAPENTIN 300 MG CAP PO SCH (21:39)
[2020-02-06] MEDS: SENNOSIDES-DOCUSATE SODIUM 1 EACH TAB PO SCH (21:39)
[2020-02-06] MEDS ORDERED: ALBUTEROL NEBULIZED 2.5 MG/3 ML INHALATION PRN (22:00)
[2020-02-06] MEDS ORDERED: LACTULOSE 20 GM/30 ML CUP PO PRN (22:00)
[2020-02-07] MEDS: SPIRONOLACTONE 25 MG TAB PO SCH (07:22)
[2020-02-07] MEDS: METOPROLOL TARTRATE 25 MG TAB PO SCH ×2 (07:27→20:29)
[2020-02-07] MEDS: VANCOMYCIN 1,250 MG in SODIUM CHLORIDE 0.9% 250 ML IVPB SCH ×2 (07:28→22:07)
[2020-02-07] MEDS: GABAPENTIN 300 MG CAP PO SCH ×2 (07:28→20:52)
[2020-02-07] MEDS: SENNOSIDES-DOCUSATE SODIUM 1 EACH TAB PO SCH ×2 (07:29→20:51)
[2020-02-07] MEDS: MULTIVITAMINS, THERA 1 EACH TAB PO SCH (07:29)
[2020-02-07] MEDS: DOCUSATE 100 MG CAP PO SCH ×2 (07:29→20:52)
[2020-02-07] MEDS: FUROSEMIDE 40 MG TAB PO SCH (07:29)
[2020-02-07] MEDS: DIGOXIN 125 MCG TAB PO SCH (07:29)
[2020-02-07] MEDS: oxyCODONE-APAP 10-325MG 1 EACH TAB PO PRN (07:30)
[2020-02-07] MEDS ORDERED: NON FORMULARY DRUG (Tiotropium 18 Mcg/Puff 1 PUFF Inhaler) INHALATION SCH (08:00)
[2020-02-07] MEDS: IPRATROPIUM-ALBUTEROL 3 ML NEB INHALATION SCH ×4 (09:07→20:24)
[2020-02-07] MEDS: SYMBICORT 80-4.5 MCG INHALER INHALATION SCH ×2 (09:07→20:24)
[2020-02-07 12:43] VITALS: BMI 25.4
[2020-02-07] MEDS ORDERED: RIVAROXABAN 20 MG TAB PO SCH (18:30)
[2020-02-07] MEDS: ATORVASTATIN 40 MG TAB PO SCH (20:52)
--- NOTE | 2020-02-07 22:46 | P.HPIM ---
History of Present Illness H&P Date: 02/07/20 Patient presents with fever, hypoxemia, altered mental status. He has a history of a decubitus ulcer, as well as recent admission for peripheral extremity cellulitis. According to the EMS crew, the patient was altered on arrival, although better compared towhen his initially called for EMS. Patient was hypoxic. They increased his oxygen. Patient is currently denying any chest pain or back pain. He has no belly pain. He has no nausea or vomiting. He does have fevers. He has redness of the legs. He denies any neck pain or stiffness. He has been using Santyl lotion for his decubitus ulcer patient has had multiple readmissions over the past few months. He is admitted with blood cultures pending for acute bacteremia. Review of Systems GENERAL: Patient admits to fever and chills. EYES: Denies blurred vision. Denies vision changes. Denies eye pain. EARS, NOSE, MOUTH, & THROAT: Denies headache. Denies sore throat. Denies ear pain. RESPIRATORY: Has both cough and shortness of breath. Denies sputum production. Denies hemoptysis. CARDIOVASCULAR: Denies chest pain or pressure. Denies palpitations. Denies arrhythmias. GASTROINTESTINAL: Denies abdominal pain. Denies diarrhea. Denies constipation. Denies nausea. Denies vomiting. Denies heartburn. Denies blood in the stool. GENITOURINARY: Denies urinary frequency. Denies burning. Denies dysuria. Denies cloudy urine. Denies blood in the urine. MUSCULOSKELETAL: Denies myalgias. Denies joint swelling. Denies decreased range of motion beyond patients baseline. INTEGUMENTARY: Is recovering from cellulitis of lower extremities still has open ulcer on his right ankle lateral. And has sacral decubitus ulcer about 1.5 cm. PSYCHIATRIC: Denies suicidal or homicial ideations. ENDOCRINE: Denies weight change. Denies polydipsia. Denies polyuria. HEMATOLOGIC: Denies bleeding disorders. Past Medical History Past Medical History: Atrial Fibrillation, Heart Failure, COPD, Hypertension, Myocardial Infarction (MS), Musculoskeletal Disorder, Osteoarthritis (OA), Pneumonia, Thyroid Disorder Additional Past Medical History / Comment(s): left breast mass HX OF COLON POLYPS. HX RIGHT BREAST MASS. O2 AT 2L NC @HS AND PRN. Hx Aspiration Pneumonia R/T "FLAPPER." HX OF THYROID PROBLEM - NO TX NOW. CHRONIC BACK PAIN, RUPESH LEG NT. RT FOOT/ANKLE EDEMA, WEARS TEDS. 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 CABG 1987 X2. RUPESH SCOPES KNEES. Rupesh Hip Replacement, Nicholas Fundoplicaton. Rt Shoulder Rotator Cuff. BACK X2. HX OF EPIDURALS FOR PAIN. Past Anesthesia/Blood Transfusion Reactions: No Reported Reaction Past Psychological History: No Psychological Hx Reported Additional Psychological History / Comment(s): REFUSES RX Smoking Status: Former smoker Past Alcohol Use History: None Reported Additional Past Alcohol Use History / Comment(s): SMOKES 2-3 cig Daily AVG, SINCE TEENS, WAS 1 PPD IN PAST Past Drug Use History: None Reported - Past Family History Daughter(s) Family Medical History: Cancer Father History Unknown: Yes Mother Family Medical History: No Reported History Medications and Allergies Home Medications Medication Instructions Recorded Confirmed Type Metoprolol Tartrate [Lopressor] 25 mg PO BID 08/06/13 02/06/20 History Rivaroxaban [Xarelto] 20 mg PO PC-SUPPER 08/06/13 02/06/20 History Furosemide 40 mg PO DAILY 08/09/13 02/06/20 History Fluticasone/Salmeterol [Advair 1 puff INHALATION RT-BID 08/18/14 02/06/20 History 250-50 Diskus] Tiotropium 18 Mcg/Puff [Spiriva] 1 cap INHALATION RT-DAILY 08/18/14 02/06/20 History Atorvastatin [Lipitor] 40 mg PO HS 01/20/18 02/06/20 History Multivitamin [Men's Multi-Vitamin] 1 tab PO DAILY 01/20/18 02/06/20 History Albuterol Sulfate [Ventolin HFA] 2 puff INHALATION RT-QID PRN 11/22/19 02/06/20 History Ipratropium-Albuterol Nebulize 3 ml INHALATION RT-QID 11/22/19 02/06/20 History [Duoneb 0.5 mg-3 mg/3 ml Soln] Docusate [Colace] 100 mg PO BID cap 11/25/19 02/06/20 Rx tiZANidine HCL [Zanaflex] 4 mg PO BID PRN 12/20/19 02/06/20 History Sennosides-Docusate Sodium 2 tab PO BID 01/03/20 02/06/20 History [Senokot-S] Acetaminophen Tab [Tylenol] 650 mg PO Q6HR PRN tab 01/11/20 02/06/20 Rx Amoxicillin/Potassium Clav 1 tab PO Q12HR #14 tab 01/11/20 02/06/20 Rx [Augmentin 875-125 Tablet] Ciprofloxacin HCl [Cipro] 500 mg PO Q12H #14 tab 01/11/20 02/06/20 Rx Digoxin [Lanoxin] 125 mcg PO DAILY tab 01/11/20 02/06/20 Rx Gabapentin 600 mg PO BID #6 tab 01/11/20 02/06/20 Rx Lactulose [Cephulac] 20 gm PO TID PRN ml 01/11/20 02/06/20 Rx Pantoprazole [Protonix] 40 mg PO AC-BRKFST tablet. 01/11/20 02/06/20 Rx SILVER sulfADIAZINE CREAM 1 applic TOPICAL BID applic 01/11/20 02/06/20 Rx [Silvadene Cream] Spironolactone [Aldactone] 25 mg PO DAILY tab 01/11/20 02/06/20 Rx oxyCODONE HCL/ACETAMINOPHEN 1 tab PO TID PRN #9 tab 01/11/20 02/06/20 Rx [Percocet 10-325 mg] Ferrous Sulfate [Iron] 325 mg PO BID 02/06/20 02/06/20 History Allergies Allergy/AdvReac Type Severity Reaction Status Date / Time No Known Allergies Allergy Verified 02/06/20 21:59 Physical Exam Osteopathic Statement: *. No significant issues noted on an osteopathic structural exam other than those noted in the History and Physical/Consult. Vitals: Vital Signs Temp Pulse Pulse Resp BP Pulse Ox 02/07/20 20:36 72 02/07/20 20:24 70 02/07/20 19:38 98.4 F 69 18 100/56 95 02/07/20 16:57 68 02/07/20 16:45 70 02/07/20 15:00 98.4 F 59 L 16 109/59 94 L 02/07/20 13:32 68 02/07/20 13:20 68 02/07/20 09:20 72 02/07/20 09:10 72 02/07/20 07:00 97.7 F 68 16 99/46 98 02/07/20 02:52 97.8 F 76 92/53 100 Intake and Output 02/07/20 02/07/20 02/07/20 06:59 14:59 22:59 Other: Voiding Method Diaper # Voids 4 5 Weight 78.018 kg GENERAL: This is a -79 year-old in apparent distress at the time of examination. Pleasant and cooperative. HEENT: Head is atraumatic, normocephalic. Pupils are equal, round, and reactive to light. Sclerae anicteric. Conjunctivae are clear. Mucus membranes of the mouth are moist. Neck is supple. RESPIRATORY: Decreased breath sounds bilateral poor air exchange. No chest wall tenderness is noted on palpation or with deep breathing. CARDIOVASCULAR: Regular rate and rhythm. S1 and S2 noted. No systolic or diastolic murmur auscultated. No JVD noted. No S3 or S4 noted. GASTROINTESTINAL: No distention noted. Abdomen soft and round. Normal active bowel sounds auscultated x 4 quadrants. No pain or tenderness noted upon palpation. INTEGUMENTARY: Denies any bilateral legs the last admission is ulceration on the right lateral ankle. His sacral decubitus breakdown noted 1.5 cm diameter maceration surrounding. EXTREMITIES: 2+ peripheral pulses. No evidence of peripheral edema. No calf ten derness noted. NEUROLOGIC: Cranial nerves II-XII intact. PSYCHIATRIC: Awake, alert, and oriented X 3. Appropriate affect. Intact judgement and insight. Results CBC & Chem 7: 02/06/20 19:46 02/06/20 19:46 Labs: Microbiology - Last 24 Hours (Table) 02/06/20 19:46 Blood Culture - Preliminary Blood No Growth after 24 hours Thrombosis Risk Factor Assmnt - Choose All That Apply Each Risk Factor Represents 3 Points: Age 75 years or older Thrombosis Risk Factor Assessment Total Risk Factor Score: 3 Thrombosis Risk Factor Assessment Level: Moderate Risk Assessment and Plan (1) Bacteremia Current Visit: Yes Status: Acute Code(s): R78.81 - BACTEREMIA SNOMED Code(s): 4425204 (2) Anemia Current Visit: No Status: Acute Code(s): D64.9 - ANEMIA, UNSPECIFIED SNOMED Code(s): 866192733 (3) Atrial fibrillation Current Visit: No Status: Acute Code(s): I48.91 - UNSPECIFIED ATRIAL FIBRILLATION SNOMED Code(s): 51429216 (4) COPD (chronic obstructive pulmonary disease) Current Visit: No Status: Acute Priority: Low Code(s): J44.9 - CHRONIC OBSTRUCTIVE PULMONARY DISEASE, UNSPECIFIED SNOMED Code(s): 79353043 Plan: Admit patient IV antibiotics and hydration. Local wound care. Await final blood cultures. Infectious disease consultation regarding sacral decubitus ulcer Time with Patient: Greater than 30
[2020-02-08 07:24] VITALS: BP 101/55; RESP 16; TEMP 98.3
[2020-02-08] MEDS ORDERED: VANCOMYCIN TROUGH DUE 1 EACH MISC MISCELLANE ONE ×2 (08:00→20:00)
[2020-02-08] MEDS: IPRATROPIUM-ALBUTEROL 3 ML NEB INHALATION SCH ×2 (08:23→12:14)
[2020-02-08] MEDS: SYMBICORT 80-4.5 MCG INHALER INHALATION SCH (08:24)
[2020-02-08 08:39] VITALS: PULSE 72
[2020-02-08] MEDS: GABAPENTIN 300 MG CAP PO SCH (08:46)
[2020-02-08] MEDS: FUROSEMIDE 40 MG TAB PO SCH (08:46)
[2020-02-08] MEDS: MULTIVITAMINS, THERA 1 EACH TAB PO SCH (08:46)
[2020-02-08] MEDS: SPIRONOLACTONE 25 MG TAB PO SCH (08:46)
[2020-02-08] MEDS: SENNOSIDES-DOCUSATE SODIUM 1 EACH TAB PO SCH (08:46)
[2020-02-08] MEDS: VANCOMYCIN 1,250 MG in SODIUM CHLORIDE 0.9% 250 ML IVPB SCH (08:46)
[2020-02-08] MEDS: METOPROLOL TARTRATE 25 MG TAB PO SCH (08:47)
[2020-02-08] MEDS: DOCUSATE 100 MG CAP PO SCH (08:47)
[2020-02-08] MEDS: DIGOXIN 125 MCG TAB PO SCH (08:47)
[2020-02-08] MEDS: oxyCODONE-APAP 10-325MG 1 EACH TAB PO PRN (08:55)
[2020-02-08] MEDS ORDERED: PATIENTS OWN MED TOPICAL SCH (09:00)
[2020-02-08] MEDS ORDERED: FERROUS SULFATE 325 MG TAB PO SCH (09:00)
[2020-02-08] MEDS ORDERED: COLLAGENASE 250 UNIT/GM OINTMENT 30 GM TUBE TOPICAL SCH (09:00)
[2020-02-08 11:58] LABS: Anisocytosis Slight; Basophils % (A) 1 %; Eosinophils # (A) 0.3 k/uL (0-0.7); Eosinophils % (A) 5 %; HCT 29.9 % (39.0-53.0); Hypochromasia Marked; Lymphocytes # (A) 1.6 k/uL (1.0-4.8); Lymphocytes % (A) 23 %; MCH 26.3 pg (25.0-35.0); MCV 87.8 fL (80.0-100.0); Monocytes # (A) 0.6 k/uL (0-1.0); Monocytes % (A) 9 %; Neutrophils # (A) 3.9 k/uL (1.3-7.7); Neutrophils % (A) 59 %; Platelet Count 129 k/uL (150-450); RBC 3.41 m/uL (4.30-5.90); RDW 17.9 % (11.5-15.5); WBC 6.7 k/uL (3.8-10.6)
--- NOTE | 2020-02-08 14:30 | PN ---
PROGRESS NOTE DATE OF SERVICE: 02/08/2020 REASON FOR FOLLOWUP: Right leg and sacral wound and question of cellulitis. INTERVAL HISTORY: The patient is currently afebrile, patient is breathing comfortably. Denies having any chest pain, no shortness of breath with minimal cough. No abdominal pain or diarrhea or pain to the right leg on the sacral wound area. PHYSICAL EXAMINATION: Blood pressure 101/55 with a pulse of 72, temperature 98.3, he is 99% on 6 L nasal cannula. General description is an elderly male, up in the chair in no distress. RESPIRATORY SYSTEM: Unlabored breathing, clear to auscultation anteriorly. HEART: S1, S2. Regular rate and rhythm. ABDOMEN: Soft, no tenderness. Right lateral leg wound with minimal slough tissue. No surrounding swelling, redness or drainage. Sacral wound minimal slough. No redness or drainage. LABS: Hemoglobin is 9.8, white count 6.7, is 22.3. Urine is negative. DIAGNOSTIC IMPRESSION AND PLAN: 1. Patient with right lateral leg wound, chronic with low secondary to cellulitis. Local care to continue with Santyl on vancomycin. Recommend to discontinue has been not any fever or elevated white count. 2. Sacral wound local care with Santyl followed by moist dressing keep the area dry and off the pressure. MMODL / IJN: [id number] /
--- NOTE | 2020-02-09 22:13 | CDI ---
Documentation Clarification Form Date: 02/10/2020 From:Salo Cummins Phone: If you have a question about this query, please contact Opal Arnold Scalp Treatment Specialist at [phone] between 8am and 5pm. Admit Date: 02/06/2020 Discharge Date: 02/08/2020 Patient Name: Jean Contreras Visit Number: [id number] ATTENTION: The Clinical Documentation Specialists (CDI) and [facility] Coding Staff appreciate your assistance in clarifying documentation. Please respond to the clarification below the line at the bottom and electronically sign. The CDI & [facility] Coding staff will review the response and follow-up if needed. Please note: Queries are made part of the Legal Health Record. If you have any questions, please contact the author of this message via ITS. Dear Adams Mixon DO., CHF is documented in the Past medical history as Heart Failure. Patient with right lateral leg wound, chronic with secondary to cellulitis.Local care to continue with Santyl on vancomycin.Recommend to discontinue has been not any fever or elevated white count. History/Risk Factors: Atrial fibrillation, COPD Echocardiogram Results:NA Chest X Ray: Cardiomegaly.No active cardiopulmonary disease.No change. Treatment: Furosemide 40 mg PO DAILY 08/09/13 02/06/20 History In your professional opinion, can you please clarify the type of CHF if known? Systolic Heart Failure: Chronic Diastolic Heart Failure: Chronic Unable to Determine Other, please specify ____ Past medical history of chronic systolic congestive heart failure. MTDD
--- NOTE | 2020-02-09 22:19 | CDI ---
Documentation Clarification Form Date: 02/10/2020 From:Salo Cummins Phone: If you have a question about this query, please contact Opal Arnold Axle Inspector at [phone] between 8am and 5pm. Admit Date: 02/06/2020 Discharge Date: 02/08/2020 Patient Name: Jean Contreras Visit Number: [id number] ATTENTION: The Clinical Documentation Specialists (CDI) and [facility] Coding Staff appreciate your assistance in clarifying documentation. Please respond to the clarification below the line at the bottom and electronically sign. The CDI & [facility] Coding staff will review the response and follow-up if needed. Please note: Queries are made part of the Legal Health Record. If you have any questions, please contact the author of this message via ITS. Dear Adams Mixon DO., Patient presents with fever, hypoxemia, altered mental status.He has a history of a decubitus ulcer, as well as recent admission for peripheral extremity cellulitis. History/Risk Factors: COPD, atrial fibrillation, Cellulitis, sacral decubitus ulcer stage 2 Clinical Indicators: fever, cellulitis, decubitis ulcer WBC : 8.3 Blood cultures: NG72 Vitals signs on admission: 02/07/20 15:00 98.4 F 59 L 16 109/59 94 L Treatment: Admit patient IV antibiotics and hydration. Per H&P documented as "Bacteremia". ID Consult:Patient with right lateral leg wound, chronic with low secondary to cellulitis.Local care to continue with Santyl on vancomycin.Recommend to discontinue has been not any fever or elevated white count. 2.Sacral wound local care with Santyl followed by moist dressing keep the area dry and off the pressure. In your professional opinion, please clarify if these findings signify one of the following conditions, Condition Sepsis ruled out Sepsis Other, please specify Unable to determine Sepsis was ruled out MTDD
--- NOTE | 2020-02-29 21:50 | P.DS ---
Providers Date of admission: 02/06/20 20:32 Expected date of discharge: 02/08/20 Attending physician: Adams Abraham Consults: 02/07/20 14:37 Consult Physician Routine Consulting Provider: Niko Fontenot Consult Reason/Comments: santyl for wounds Do you want consulting provider notified?: Yes Primary care physician: Adams Abraham - Discharge Diagnosis(es) (1) Bacteremia Status: Acute (2) Anemia Status: Acute (3) Atrial fibrillation Status: Acute (4) COPD (chronic obstructive pulmonary disease) Status: Acute Priority: Low Patient Condition at Discharge: Fair Plan - Discharge Summary New Discharge Prescriptions: New Collagenase [Santyl] 1 applic TOPICAL DAILY applic Continue Metoprolol Tartrate [Lopressor] 25 mg PO BID Rivaroxaban [Xarelto] 20 mg PO PC-SUPPER Furosemide 40 mg PO DAILY Fluticasone/Salmeterol [Advair 250-50 Diskus] 1 puff INHALATION RT-BID Tiotropium 18 Mcg/Puff [Spiriva] 1 cap INHALATION RT-DAILY Atorvastatin [Lipitor] 40 mg PO HS Multivitamin [Men's Multi-Vitamin] 1 tab PO DAILY Albuterol Sulfate [Ventolin HFA] 2 puff INHALATION RT-QID PRN PRN Reason: Shortness Of Breath Ipratropium-Albuterol Nebulize [Duoneb 0.5 mg-3 mg/3 ml Soln] 3 ml INHALATION RT-QID Docusate [Colace] 100 mg PO BID cap tiZANidine HCL [Zanaflex] 4 mg PO BID PRN PRN Reason: Muscle Spasm Sennosides-Docusate Sodium [Senokot-S] 2 tab PO BID Spironolactone [Aldactone] 25 mg PO DAILY tab Lactulose [Cephulac] 20 gm PO TID PRN ml PRN Reason: Constipation Digoxin [Lanoxin] 125 mcg PO DAILY tab Pantoprazole [Protonix] 40 mg PO AC-BRKFST tablet. SILVER sulfADIAZINE CREAM [Silvadene Cream] 1 applic TOPICAL BID applic Acetaminophen Tab [Tylenol] 650 mg PO Q6HR PRN tab PRN Reason: Mild Pain Or Fever > 100.5 Gabapentin 600 mg PO BID #6 tab oxyCODONE HCL/ACETAMINOPHEN [Percocet 10-325 mg] 1 tab PO TID PRN #9 tab PRN Reason: Pain Amoxicillin/Potassium Clav [Augmentin 875-125 Tablet] 1 tab PO Q12HR #14 tab Ciprofloxacin HCl [Cipro] 500 mg PO Q12H #14 tab Ferrous Sulfate [Iron] 325 mg PO BID Discharge Medication List Metoprolol Tartrate [Lopressor] 25 mg PO BID 08/06/13 [History] Rivaroxaban [Xarelto] 20 mg PO PC-SUPPER 08/06/13 [History] Furosemide 40 mg PO DAILY 08/09/13 [History] Fluticasone/Salmeterol [Advair 250-50 Diskus] 1 puff INHALATION RT-BID 08/18/14 [History] Tiotropium 18 Mcg/Puff [Spiriva] 1 cap INHALATION RT-DAILY 08/18/14 [History] Atorvastatin [Lipitor] 40 mg PO HS 01/20/18 [History] Multivitamin [Men's Multi-Vitamin] 1 tab PO DAILY 01/20/18 [History] Albuterol Sulfate [Ventolin HFA] 2 puff INHALATION RT-QID PRN 11/22/19 [History] Ipratropium-Albuterol Nebulize [Duoneb 0.5 mg-3 mg/3 ml Soln] 3 ml INHALATION RT-QID 11/22/19 [History] Docusate [Colace] 100 mg PO BID cap 11/25/19 [Rx] tiZANidine HCL [Zanaflex] 4 mg PO BID PRN 12/20/19 [History] Sennosides-Docusate Sodium [Senokot-S] 2 tab PO BID 01/03/20 [History] Acetaminophen Tab [Tylenol] 650 mg PO Q6HR PRN tab 01/11/20 [Rx] Amoxicillin/Potassium Clav [Augmentin 875-125 Tablet] 1 tab PO Q12HR #14 tab 01/11/20 [Rx] Ciprofloxacin HCl [Cipro] 500 mg PO Q12H #14 tab 01/11/20 [Rx] Digoxin [Lanoxin] 125 mcg PO DAILY tab 01/11/20 [Rx] Gabapentin 600 mg PO BID #6 tab 01/11/20 [Rx] Lactulose [Cephulac] 20 gm PO TID PRN ml 01/11/20 [Rx] Pantoprazole [Protonix] 40 mg PO AC-BRKFST tablet.dr 01/11/20 [Rx] SILVER sulfADIAZINE CREAM [Silvadene Cream] 1 applic TOPICAL BID applic 01/11/20 [Rx] Spironolactone [Aldactone] 25 mg PO DAILY tab 01/11/20 [Rx] oxyCODONE HCL/ACETAMINOPHEN [Percocet 10-325 mg] 1 tab PO TID PRN #9 tab 01/11/20 [Rx] Ferrous Sulfate [Iron] 325 mg PO BID 02/06/20 [History] Collagenase [Santyl] 1 applic TOPICAL DAILY applic 02/08/20 [Rx] Follow up Appointment(s[facility]Ref[facility] - As Needed Adams Abraham DO [Primary Care Provider] - 1 Week Patient Instructions/Handouts: Bacteremia (DC) Discharge Disposition: HOME WITH HOME HEALTH SERVICES
== END 2020-02-08 15:47 | disposition home health service (06) | DRG 603 ==
LOC: EC 19:15 → 4SSUR 20:32
PROVIDERS: ADMIT Family Medicine; ATTEND Family Medicine
DX: L03.115 Cellulitis of right lower limb (principal); I50.22 Chronic systolic (congestive) heart failure; J44.9 Chronic obstructive pulmonary disease, unspecified; M19.90 Unspecified osteoarthritis, unspecified site; L89.152 Pressure ulcer of sacral region, stage 2; D64.9 Anemia, unspecified; I11.0 Hypertensive heart disease with heart failure; L89.512 Pressure ulcer of right ankle, stage 2; M54.9 Dorsalgia, unspecified; Z96.649 Presence of unspecified artificial hip joint; I48.91 Unspecified atrial fibrillation; Z79.01 Long term (current) use of anticoagulants; Z95.1 Presence of aortocoronary bypass graft; Z87.891 Personal history of nicotine dependence; Z87.19 Personal history of other diseases of the digestive system; Z79.899 Other long term (current) drug therapy; I25.2 Old myocardial infarction; Z86.14 Personal history of Methicillin resistant Staphylococcus aureus infection; Z98.890 Other specified postprocedural states; Z87.01 Personal history of pneumonia (recurrent); Z80.0 Family history of malignant neoplasm of digestive organs
CPT/HCPCS: 36415; 71046; 80053; 80202; 81003; 83605; 84145; 85025; 85379; 85610; 85730; 87040; 93005; 94640; 96365; 99285

== ENCOUNTER 2020-03-19 13:19 | Inpatient (IN) | payer MEDICARE ==
[2020-03-19] MEDS ORDERED: ACETAMINOPHEN TAB 500 MG TAB PO PRN (13:42)
[2020-03-19] MEDS ORDERED: ACETAMINOPHEN TAB 500 MG TAB PO STA (13:42)
--- NOTE | 2020-03-19 13:45 | ED ---
General Adult HPI - General Chief complaint: Weakness Stated complaint: Weakness Time Seen by Provider: 03/19/20 13:26 Source: patient, EMS, RN notes reviewed Limitations: no limitations - History of Present Illness Initial comments: Patient is a pleasant 80-year-old male presenting to the emergency Department with general weakness and myalgias. Patient was diagnosed with urinary tract infection just 2 days ago. Patient states symptoms worsened over the past day or 2. Patient feels chills and achy all over. Patient has been shaking. Patient feels generally weak. Patient denies urinary symptoms. No dysuria or hematuria or frequency. Patient denies cough or any difficulty breathing. No isolated area of weakness. - Related Data Home Medications Medication Instructions Recorded Confirmed Metoprolol Tartrate [Lopressor] 25 mg PO BID 08/06/13 03/19/20 Rivaroxaban [Xarelto] 20 mg PO DAILY 08/06/13 03/19/20 Furosemide 40 mg PO BID 08/09/13 03/19/20 Fluticasone/Salmeterol [Advair 1 puff INHALATION RT-BID 08/18/14 03/19/20 250-50 Diskus] Tiotropium 18 Mcg/Puff [Spiriva] 1 cap INHALATION RT-DAILY 08/18/14 03/19/20 Atorvastatin [Lipitor] 40 mg PO HS 01/20/18 03/19/20 Multivitamin [Men's Multi-Vitamin] 1 tab PO DAILY 01/20/18 03/19/20 Albuterol Sulfate [Ventolin HFA] 2 puff INHALATION RT-QID PRN 11/22/19 03/19/20 Ipratropium-Albuterol Nebulize 3 ml INHALATION RT-QID 11/22/19 03/19/20 [Duoneb 0.5 mg-3 mg/3 ml Soln] Ascorbic Acid [Vitamin C] 1,000 mg PO DAILY 03/19/20 03/19/20 Calcium Carbonate [Calcium] 600 mg PO DAILY 03/19/20 03/19/20 Cholecalciferol [Vitamin D3 (25 1,000 unit PO DAILY 03/19/20 03/19/20 Mcg = 1000 Iu)] Cyanocobalamin (Vitamin B-12) 1,000 mcg PO DAILY 03/19/20 03/19/20 [Vitamin B-12] Nitrofurantoin Monohyd/M-Cryst 100 mg PO BID 03/19/20 03/19/20 [Macrobid] Previous Rx's Medication Instructions Recorded Acetaminophen Tab [Tylenol] 650 mg PO Q6HR PRN tab 01/11/20 Digoxin [Lanoxin] 125 mcg PO DAILY tab 01/11/20 Gabapentin 600 mg PO BID #6 tab 01/11/20 oxyCODONE HCL/ACETAMINOPHEN 1 tab PO TID PRN #9 tab 01/11/20 [Percocet 10-325 mg] Allergies Allergy/AdvReac Type Severity Reaction Status Date / Time No Known Allergies Allergy Verified 03/19/20 14:36 Review of Systems ROS Statement: Those systems with pertinent positive or pertinent negative responses have been documented in the HPI. ROS Other: All systems not noted in ROS Statement are negative. Constitutional: Reports: chills Eyes: Denies: eye pain ENT: Denies: ear pain Respiratory: Denies: cough, dyspnea Cardiovascular: Denies: chest pain Endocrine: Reports: fatigue Gastrointestinal: Denies: abdominal pain Genitourinary: Denies: dysuria Musculoskeletal: Denies: back pain Skin: Denies: rash Neurological: Reports: as per HPI Past Medical History Past Medical History: Atrial Fibrillation, Heart Failure, COPD, Hypertension, Myocardial Infarction ([place]), Musculoskeletal Disorder, Osteoarthritis (OA), Pneumonia, Thyroid Disorder Additional Past Medical History / Comment(s): left breast mass HX OF COLON POLYPS. HX RIGHT BREAST MASS. O2 AT 2L NC @HS AND PRN. Hx Aspiration Pneumonia R/T "FLAPPER." HX OF THYROID PROBLEM - NO TX NOW. CHRONIC BACK PAIN, JAIME LEG NT. RT FOOT/ANKLE EDEMA, WEARS TEDS. JAIME CTS Last Myocardial Infarction Date:: 1987 History of Any Multi-Drug Resistant Organisms: MRSA Date of last positivie culture/infection: 1988-chest, 03/2012-01/2013 ankle sore MDRO Source:: staph after open heart; Right Ankle pressure sore Past Surgical History: Back Surgery, Coronary Bypass/CABG, Joint Replacement, Orthopedic Surgery Additional Past Surgical History / Comment(s): left carpel tunnel, CARPAL TUNNEL RIGHT x 2. CABG 1987 X2. JAIME SCOPES KNEES. Jaime Hip Replacement, Nicholas Fundoplicaton. Rt Shoulder Rotator Cuff. BACK X2. HX OF EPIDURALS FOR PAIN. Past Anesthesia/Blood Transfusion Reactions: No Reported Reaction Past Psychological History: No Psychological Hx Reported Smoking Status: Former smoker Past Alcohol Use History: None Reported Past Drug Use History: None Reported - Past Family History Daughter(s) Family Medical History: Cancer Father History Unknown: Yes Mother Family Medical History: No Reported History General Exam Limitations: no limitations General appearance: alert, in no apparent distress Head exam: Present: normocephalic Eye exam: Present: normal appearance, PERRL ENT exam: Present: normal oropharynx Neck exam: Present: normal inspection. Absent: tenderness, meningismus Respiratory exam: Present: normal lung sounds bilaterally Cardiovascular Exam: Present: tachycardia, irregular rhythm GI/Abdominal exam: Present: soft. Absent: tenderness Extremities exam: Present: normal inspection. Absent: calf tenderness Neurological exam: Present: alert. Absent: motor sensory deficit Psychiatric exam: Present: normal affect, normal mood Skin exam: Present: normal color Course Vital Signs 03/19/20 03/19/20 13:25 14:24 Temperature 101.5 F H 102.1 F H Pulse Rate 125 H 98 Respiratory 18 20 Rate Blood Pressure 151/79 133/75 O2 Sat by Pulse 96 93 L Oximetry - Reevaluation(s) Reevaluation #1: 03/19/20 15:10 Patient does meet sepsis criteria diagnosed at 1500. Blood culture and lactic acid have been ordered. IV and about X will be ordered. EKG Findings - EKG Comments: EKG Findings:: A. fib with RVR, rate 108. QRS 144. QT 360. QTC 42. Superior axis. Right block. Nonspecific T waves. Medical Decision Making - Medical Decision Making Patient reevaluated. Patient and family updated on results and plan. Case was discussed in detail with Dr. veliz, covering for Dr. Abraham, who will admit. - Lab Data Result diagrams: 03/19/20 13:49 03/19/20 13:49 Lab Results 03/19/20 03/19/20 03/19/20 Range/Units 13:49 13:49 13:49 WBC 13.2 H (3.8-10.6) k/uL RBC 3.81 L (4.30-5.90) m/uL Hgb 10.4 L (13.0-17.5) gm/dL Hct 32.9 L (39.0-53.0) % MCV 86.3 (80.0-100.0) fL MCH 27.4 (25.0-35.0) pg MCHC 31.7 (31.0-37.0) g/dL RDW 16.0 H (11.5-15.5) % Plt Count 282 D (150-450) k/uL MPV 8.1 Neutrophils % 77 % Lymphocytes % 11 % Monocytes % 8 % Eosinophils % 1 % Basophils % 1 % Neutrophils # 10.1 H (1.3-7.7) k/uL Lymphocytes # 1.5 (1.0-4.8) k/uL Monocytes # 1.1 H (0-1.0) k/uL Eosinophils # 0.1 (0-0.7) k/uL Basophils # 0.1 (0-0.2) k/uL Hypochromasia Moderate Anisocytosis Slight PT 11.9 (9.0-12.0) sec INR 1.2 H (<1.2) APTT 29.7 (22.0-30.0) sec Sodium 141 (137-145) mmol/L Potassium 4.7 (3.5-5.1) mmol/L Chloride 104 (98-107) mmol/L Carbon Dioxide 33 H (22-30) mmol/L Anion Gap 4 mmol/L BUN 30 H (9-20) mg/dL Creatinine 0.77 (0.66-1.25) mg/dL Est GFR (CKD-EPI)AfAm >90 (>60 ml/min/1.73 sqM) Est GFR (CKD-EPI)NonAf 85 (>60 ml/min/1.73 sqM) Glucose 195 H (74-99) mg/dL Plasma Lactic Acid Gio (0.7-2.0) mmol/L Calcium 9.0 (8.4-10.2) mg/dL Magnesium 2.1 (1.6-2.3) mg/dL Total Bilirubin 0.6 (0.2-1.3) mg/dL AST 41 (17-59) U/L ALT 24 (4-49) U/L Alkaline Phosphatase 79 (38-126) U/L Lactate Dehydrogenase 615 (313-618) U/L C-Reactive Protein 227.8 H (<10.0) mg/L Total Protein 6.6 (6.3-8.2) g/dL Albumin 3.3 L (3.5-5.0) g/dL Coronavirus (PCR) (Not Detectd) 03/19/20 03/19/20 Range/Units 13:49 13:49 WBC (3.8-10.6) k/uL RBC (4.30-5.90) m/uL Hgb (13.0-17.5) gm/dL Hct (39.0-53.0) % MCV (80.0-100.0) fL MCH (25.0-35.0) pg MCHC (31.0-37.0) g/dL RDW (11.5-15.5) % Plt Count (150-450) k/uL MPV Neutrophils % % Lymphocytes % % Monocytes % % Eosinophils % % Basophils % % Neutrophils # (1.3-7.7) k/uL Lymphocytes # (1.0-4.8) k/uL Monocytes # (0-1.0) k/uL Eosinophils # (0-0.7) k/uL Basophils # (0-0.2) k/uL Hypochromasia Anisocytosis PT (9.0-12.0) sec INR (<1.2) APTT (22.0-30.0) sec Sodium (137-145) mmol/L Potassium (3.5-5.1) mmol/L Chloride (98-107) mmol/L Carbon Dioxide (22-30) mmol/L Anion Gap mmol/L BUN (9-20) mg/dL Creatinine (0.66-1.25) mg/dL Est GFR (CKD-EPI)AfAm (>60 ml/min/1.73 sqM) Est GFR (CKD-EPI)NonAf (>60 ml/min/1.73 sqM) Glucose (74-99) mg/dL Plasma Lactic Acid Gio 2.2 H* (0.7-2.0) mmol/L Calcium (8.4-10.2) mg/dL Magnesium (1.6-2.3) mg/dL Total Bilirubin (0.2-1.3) mg/dL AST (17-59) U/L ALT (4-49) U/L Alkaline Phosphatase (38-126) U/L Lactate Dehydrogenase (313-618) U/L C-Reactive Protein (<10.0) mg/L Total Protein (6.3-8.2) g/dL Albumin (3.5-5.0) g/dL Coronavirus (PCR) Not Detected (Not Detectd) - Radiology Data Radiology results: image reviewed (Chest x-ray shows mild pulmonary physician density both lungs consistent with fibrosis. Slightly increased compared to prior, mild interstitial pneumonia is possible.) Critical Care Time Critical Care Time: Yes Total Critical Care Time: 33 Disposition Clinical Impression: Sepsis, Pneumonia, UTI (urinary tract infection) Disposition: ADMITTED IP TO THIS HOSP Is patient prescribed a controlled substance at d/c from ED?: No Referrals: Adams Abraham DO [Primary Care Provider] - 1-2 days Decision Time: 15:10
[2020-03-19 14:04] LABS: Anisocytosis Slight; Basophils # (A) 0.1 k/uL (0-0.2); Basophils % (A) 1 %; Eosinophils # (A) 0.1 k/uL (0-0.7); Eosinophils % (A) 1 %; HCT 32.9 % (39.0-53.0); HGB 10.4 gm/dL (13.0-17.5); Hypochromasia Moderate; Lymphocytes # (A) 1.5 k/uL (1.0-4.8); Lymphocytes % (A) 11 %; MCH 27.4 pg (25.0-35.0); MCHC 31.7 g/dL (31.0-37.0); MCV 86.3 fL (80.0-100.0); Mean Platelet Volume 8.1; Monocytes # (A) 1.1 k/uL (0-1.0); Monocytes % (A) 8 %; Neutrophils # (A) 10.1 k/uL (1.3-7.7); Neutrophils % (A) 77 %; RBC 3.81 m/uL (4.30-5.90); WBC 13.2 k/uL (3.8-10.6)
[2020-03-19 14:08] LABS: Platelet Count 282 k/uL (150-450)
[2020-03-19 14:12] LABS: INR 1.2 (<1.2); Partial Thromboplastin Time 29.7 sec (22.0-30.0); Prothrombin Time 11.9 sec (9.0-12.0)
[2020-03-19 14:21] LABS: ALT 24 U/L (4-49); AST 41 U/L (17-59); African American GFR (CKD) >90 (>60 ml/min/1.73 sqM); Albumin 3.3 g/dL (3.5-5.0); Alkaline Phosphatase 79 U/L (38-126); Anion Gap 4 mmol/L; Blood Urea Nitrogen 30 mg/dL (9-20); Carbon Dioxide 33 mmol/L (22-30); Chloride 104 mmol/L (98-107); Glucose 195 mg/dL (74-99); LDH 615 U/L (313-618); Magnesium 2.1 mg/dL (1.6-2.3); Non-African American GFR(CKD) 85 (>60 ml/min/1.73 sqM); Potassium 4.7 mmol/L (3.5-5.1); Sodium 141 mmol/L (137-145); Total Bilirubin 0.6 mg/dL (0.2-1.3); Total Protein 6.6 g/dL (6.3-8.2)
--- NOTE | 2020-03-19 14:29 | XR ---
EXAMINATION TYPE: XR chest 1V portable DATE OF EXAM: 03/19/2020 COMPARISON: 02/06/2020 HISTORY: Cough and short of breath TECHNIQUE: Single view FINDINGS: Heart is slightly enlarged. There is no heart failure. There is some coarse interstitial de nsity in both lungs. Thoracic aorta is atheromatous. There are chest leads. IMPRESSION: There is some mild pulmonary interstitial density in both lungs consistent with fibrosis. This appears slightly increased compared to last exam. Acute mild interstitial pneumonia is possible .
[2020-03-19 14:33] LABS: C Reactive Protein 227.8 mg/L (<10.0)
[2020-03-19 15:10] LABS: Amorphous Sediment,Urine Occasional /hpf; Appearance,Urine Cloudy (Clear); Bacteria,Urine Occasional /hpf; Bilirubin,Urine Negative (Negative); Blood,Urine Negative (Negative); Color,Urine Yellow; Glucose,Urine (UA) Negative (Negative); Ketones,Urine Negative (Negative); Leukocyte Esterase,Urine Negative (Negative); Mucus,Urine Rare /hpf; Nitrite,Urine Negative (Negative); Protein,Urine 1+ (Negative); Specific Gravity,Urine 1.015 (1.001-1.035); Urobilinogen,Urine <2.0 mg/dL (<2.0); WBC,Urine <1 /hpf (0-5)
[2020-03-19] MEDS ORDERED: AZITHROMYCIN 500 MG in SODIUM CHLORIDE 0.9% 250 ML IVPB STA (15:11)
[2020-03-19] MEDS ORDERED: PNEUMONIA PROTOCOL UTILIZED 1 EACH MISC PO PRN (15:11)
--- NOTE | 2020-03-19 15:41 | XR ---
EXAMINATION TYPE: XR shoulder limited LT DATE OF EXAM: 03/19/2020 COMPARISON: NONE HISTORY: Pain TECHNIQUE: Single view FINDINGS: A single view shows some spurring at the AC joint. I see no fracture. There is no evidence of shoulder joint dislocation there is some spurring of the glenoid. IMPRESSION: Arthritic changes. No fracture seen.
--- NOTE | 2020-03-19 15:45 | XR ---
EXAMINATION TYPE: XR elbow complete LT DATE OF EXAM: 03/19/2020 COMPARISON: NONE HISTORY: Pain and weakness TECHNIQUE: 2 views FINDINGS: 3 views were obtained and show some spurring on the olecranon process of the ulna. There is no evidence of elbow joint effusion. Radial head is intact. I see no fracture nor dislocation. There is calcification at the lateral humeral condyle. There is small linear densities projected in the so ft tissues over the posterior proximal ulna that are consistent with foreign bodies. IMPRESSION: Arthritic changes. No fracture seen. Calcification of the triceps tendon consistent with calcific tendinitis. Tiny foreign bodies.
--- NOTE | 2020-03-19 16:01 | XR ---
EXAMINATION TYPE: XR wrist complete LT DATE OF EXAM: 03/19/2020 COMPARISON: NONE HISTORY: Pain TECHNIQUE: 4 views FINDINGS: There is narrowing and spurring at the first carpometacarpal joint. There is mild deformity of the distal radius consistent with an old healed fracture. There is widening of the scapholunate j oint space. I see no acute fracture nor dislocation. IMPRESSION: Posttraumatic osteoarthritis. No acute fracture seen.
[2020-03-19] MEDS: SODIUM CHLORIDE 0.9% 1,000 ML IV SCH (17:29)
[2020-03-19] MEDS: METOPROLOL TARTRATE 25 MG TAB PO SCH (20:40)
[2020-03-19] MEDS: GABAPENTIN 300 MG CAP PO SCH (20:40)
[2020-03-19] MEDS: ATORVASTATIN 40 MG TAB PO SCH (20:40)
[2020-03-19] MEDS: FUROSEMIDE 40 MG TAB PO SCH (20:40)
[2020-03-19 22:46] LABS: Ferritin 110.3 ng/mL (22.0-322.0)
--- NOTE | 2020-03-20 00:05 | P.HPIM ---
History of Present Illness This is a pleasant 80 years old male with multiple medical problems including atrial fibrillation, heart failure, COPD, hypertension, osteoarthritis, hyperthyroidism, chronic back pain and he follows up with the pain clinic and Dr. Chan Morin [place] for years. Also he sees Dr. Caro and Dr. Linares. He was recently treated for bilateral leg cellulitis about 2-3 months ago He continued to smoke about one cigarette a week as per daughter. He drinks alcohol occasionally on no illicit drugs. Patient is poor historian today and information was obtained from the patient and his daughter justyna at bedside . As per daughter who presents today because of confusion and high fever. She states that about one week ago he went to urgent care because of urinary symptoms and was diagnosed with UTI and he got a shot and prescribed nitrofurantoin which he was taken however over the last few days he was getting more confused and he had a fever as per daughter its 102.3.. However when asked the patient he denies urinary symptoms like burning or dysuria or increased frequency or urgency. He denies diarrhea but he has c onstipation. He complains from significant pain in his left arm joints especially the left elbow and the left wrist although he denies trauma, his left upper extremity is slightly swollen compared to the right side. Also I complains from pain in his right leg which is a slightly swollen but no redness and also he has an ulcer over the lateral malleolus with some discharge and he follow-up with wound clinic . Also he complains from just pain in the left upper chest, nonspecific for 2-3 weeks, nonradiating mild to moderate in severity. With some coughing and white phlegm especially over the last 3 days. On admission he has a fever of 101.5 Labs showing the Sp 13.2 K, hemoglobin 10.4, platelet 282. INR 1.2, BMP is unremarkable. Liver enzymes not elevated. High lactic acid 2.2, coronary varus not detected Chest x-ray reviewed by me showing COPD changes with no acute findings, no ch rebecca from previous chest x-ray 02/05, however final report per radiologist: there is some mild pulmonary interstitial density in both lungs consistent with fibrosis. This appears slightly increased compared to last exam. Acute mild interstitial pneumonia as possible EKG showing atrial fibrillation with RVR at 108, right bundle-branch block Review of Systems -CONSTITUTIONAL: Positive for fever and malaise as above. HEENT: No recent visual problems or hearing problems. Denied any sore throat. CARDIOVASCULAR: No orthopnea, PND, no palpitations, no syncope. PULMONARY: No shortness of breath, no hemoptysis. GASTROINTESTINAL: No diarrhea, no nausea, no vomiting, no abdominal pain. Normoactive bowel sounds. NEUROLOGICAL: No headaches, no weakness, no numbness. HEMATOLOGICAL: Denies any bleeding or petechiae. GENITOURINARY: Denies any burning micturition, frequency, or urgency. -MUSCULOSKELETAL/RHEUMATOLOGICAL: As above ENDOCRINE: Denies any polyuria or polydipsia. Past Medical History Past Medical History: Atrial Fibrillation, Heart Failure, COPD, Hypertension, Myocardial Infarction ([place]), Musculoskeletal Disorder, Osteoarthritis (OA), Pneumonia, Thyroid Disorder Additional Past Medical History / Comment(s): left breast mass HX OF COLON POLYPS. HX RIGHT BREAST MASS. O2 AT 2L NC @HS AND PRN. Hx Aspiration Pneumonia R/T "FLAPPER." HX OF THYROID PROBLEM - NO TX NOW. CHRONIC BACK PAIN, JAIME LEG NT. RT FOOT/ANKLE EDEMA, WEARS TEDS. JAIME CTS Last Myocardial Infarction Date:: 1987 History of Any Multi-Drug Resistant Organisms: MRSA Date of last positivie culture/infection: 1988-chest, 03/2012-01/2013 ankle sore MDRO Source:: staph after open heart; Right Ankle pressure sore Past Surgical History: Back Surgery, Coronary Bypass/CABG, Joint Replacement, Orthopedic Surgery Additional Past Surgical History / Comment(s): left carpel tunnel, CARPAL TUNNEL RIGHT x 2. CABG 1987 X2. JAIME SCOPES KNEES. Jaime Hip Replacement, Nicholas Fundoplicaton. Rt Shoulder Rotator Cuff. BACK X2. HX OF EPIDURALS FOR PAIN. Past Anesthesia/Blood Transfusion Reactions: No Reported Reaction Past Psychological History: No Psychological Hx Reported Smoking Status: Former smoker Past Alcohol Use History: None Reported Past Drug Use History: None Reported - Past Family History Daughter(s) Family Medical History: Cancer Father History Unknown: Yes Mother Family Medical History: No Reported History Medications and Allergies Home Medications Medication Instructions Recorded Confirmed Type Metoprolol Tartrate [Lopressor] 25 mg PO BID 08/06/13 03/19/20 History Rivaroxaban [Xarelto] 20 mg PO DAILY 08/06/13 03/19/20 History Furosemide 40 mg PO BID 08/09/13 03/19/20 History Fluticasone/Salmeterol [Advair 1 puff INHALATION RT-BID 08/18/14 03/19/20 History 250-50 Diskus] Tiotropium 18 Mcg/Puff [Spiriva] 1 cap INHALATION RT-DAILY 08/18/14 03/19/20 History Atorvastatin [Lipitor] 40 mg PO HS 01/20/18 03/19/20 History Multivitamin [Men's Multi-Vitamin] 1 tab PO DAILY 01/20/18 03/19/20 History Albuterol Sulfate [Ventolin HFA] 2 puff INHALATION RT-QID PRN 11/22/19 03/19/20 History Ipratropium-Albuterol Nebulize 3 ml INHALATION RT-QID 11/22/19 03/19/20 History [Duoneb 0.5 mg-3 mg/3 ml Soln] Acetaminophen Tab [Tylenol] 650 mg PO Q6HR PRN tab 01/11/20 03/19/20 Rx Digoxin [Lanoxin] 125 mcg PO DAILY tab 01/11/20 03/19/20 Rx Gabapentin 600 mg PO BID #6 tab 01/11/20 03/19/20 Rx oxyCODONE HCL/ACETAMINOPHEN 1 tab PO TID PRN #9 tab 01/11/20 03/19/20 Rx [Percocet 10-325 mg] Ascorbic Acid [Vitamin C] 1,000 mg PO DAILY 03/19/20 03/19/20 History Calcium Carbonate [Calcium] 600 mg PO DAILY 03/19/20 03/19/20 History Cholecalciferol [Vitamin D3 (25 1,000 unit PO DAILY 03/19/20 03/19/20 History Mcg = 1000 Iu)] Cyanocobalamin (Vitamin B-12) 1,000 mcg PO DAILY 03/19/20 03/19/20 History [Vitamin B-12] Nitrofurantoin Monohyd/M-Cryst 100 mg PO BID 03/19/20 03/19/20 History [Macrobid] Allergies Allergy/AdvReac Type Severity Reaction Status Date / Time No Known Allergies Allergy Verified 03/19/20 14:36 Physical Exam Vitals: Vital Signs Temp Pulse Resp BP Pulse Ox 03/19/20 13:25 101.5 F H 125 H 18 151/79 96 Intake and Output 12/26/20 12/27/20 12/27/20 22:59 06:59 14:59 Other: Weight 75.75 kg -GENERAL: The patient is alert and little confused, not in any acute distress. Well developed, well nourished. HEENT: Pupils are round and equally reacting to light. EOMI. No scleral icterus. No conjunctival pallor. Normocephalic, atraumatic. No pharyngeal erythema. No thyromegaly. CARDIOVASCULAR: S1 and S2 present. No murmurs, rubs, or gallops. PULMONARY: Chest is clear to auscultation, no wheezing or crackles. ABDOMEN: Soft, nontender, nondistended, normoactive bowel sounds. No palpable organomegaly. MUSCULOSKELETAL: No joint swelling or deformity. -EXTREMITIES: No cyanosis, clubbing, or pedal edema. Right leg is more swollen compared to the left side and there is 1 inch wound over the right lateral malleolus with purulent discharge, no significant redness while there is tenderness -Also there is mild swelling and tenderness in the left wrist and left elbow and to lesser extent in the left shoulder with tenderness and the surrounding area in the left upper chest with restricted movement NEUROLOGICAL: Gross neurological examination did not reveal any focal deficits. SKIN: No rashes. No petechiae Results CBC & Chem 7: 03/19/20 13:49 03/19/20 13:49 Labs: Abnormal Lab Results - Last 24 Hours (Table) 03/19/20 03/19/20 Range/Units 13:49 13:49 WBC 13.2 H (3.8-10.6) k/uL RBC 3.81 L (4.30-5.90) m/uL Hgb 10.4 L (13.0-17.5) gm/dL Hct 32.9 L (39.0-53.0) % RDW 16.0 H (11.5-15.5) % Neutrophils # 10.1 H (1.3-7.7) k/uL Monocytes # 1.1 H (0-1.0) k/uL INR 1.2 H (<1.2) Assessment and Plan Assessment: Sepsis, with fever and leukocytosis. I think most likely is a due to right leg cellulitis rather than pneumonia right leg cellulitis Right lateral malleolus wound with some purulent discharge Left wrist, elbow and shoulder arthritis Possible mild bilateral interstitial pneumonitis versus fibrosis. Rule out cardiac causes Left upper chest pain could be related to his left upper extremity pain Mild A. fib with RVR, on exam. Mild COPD exacerbation Chest pain rule out cardiac or pulmonary causes Dehydration with elevated lactic acid at 2.2 Plan: This is a pleasant 80 years old male who presents with sepsis cellulitis and possible pneumonia continue with antibiotic. Consult infectious disease team. Also we will check troponins for chest pain and A. fib and RVR, although chest pain is atypical and felt to be musculoskeletal. Also will check echocardiogram Labs and medication were reviewed.. Continue same treatment. Continue with symptomatic treatment. Resume home medication. Monitor lytes and vitals. DVT and GI prophylaxis. Further recommendations depends on the clinical course of the patient DVT prophylaxis: xarelto GI Prophylaxis: Pepcid PT/OT: Pending Prognosis is guarded
--- NOTE | 2020-03-20 00:17 | CONS ---
CONSULTATION DATE OF SERVICE: 03/19/2020 REASON FOR CONSULTATION: Sepsis. HISTORY OF PRESENT ILLNESS: The patient is an 80-year-old male presenting to the ER with generalized weakness and myalgia in this patient's symptoms have been going on for the last day or 2. The patient apparently was also diagnosed with UTI in the outpatient setting. Has been started on treatment with an oral antibiotic. However, the patient is not sure about the name of those antibiotics. The patient denies having any headache or URI symptoms. Denies having any chest pain. He did have mild shortness of breath. Did have a cough with occasional sputum but no hemoptysis. No nausea, no vomiting. Some vague abdominal pain. No diarrhea and no urinary symptoms. With these symptoms, the patient was evaluated by the ER physician. On arrival to the ER, the patient did have fever of 101.5 degrees Fahrenheit. The patient currently 98% on 2 L which the patient currently uses at home. The patient did have white count of 13.2 with left shift. Kidney function was normal. Lactic acid was 2.2. Liver enzymes are normal. CRP 227. Procalcitonin pending. Urine was negative. Torres PCR came back negative. The patient did have a chest x-ray with no evidence of increasing infiltrate. The patient has been admitted to the hospital. He was started on Rocephin, Zithromax. Infectious Disease was consulted for further management of antibiotic therapy. REVIEW OF SYSTEMS: Positive points have been mentioned in HPI. Rest of the systems are negative. PAST MEDICAL HISTORY: Atrial fibrillation, heart failure, COPD, hypertension, [place], osteoarthritis, pneumonia. PAST SURGICAL HISTORY: Back surgery, coronary artery bypass grafting, left carpal tunnel release, bilateral hip replacement. SOCIAL HISTORY: Remote history of smoking. No drinking or drug use. FAMILY HISTORY: Daughter with history of cancer. ALLERGIES: No known drug allergies. MEDICATIONS: Include the patient is currently on Xarelto, Percocet, Lopressor, Neurontin, Lasix, Rocephin, Zithromax, Tylenol, Lipitor. PHYSICAL EXAMINATION: Blood pressure 97/56, pulse of 91, temperature 98.4, T-max is 102. He is 93% on 3 L nasal cannula. General description is an elderly male lying in bed in no distress. No tachypnea or accessory muscles of respiration use. HEENT: Shows pallor. No scleral icterus. The oral mucosa is dry. No pharyngeal erythema or thrush. Neck: Trachea central. No thyromegaly. Lungs unlabored breathing with decreased intensity in breath sounds. No wheeze. HEART: S1, S2. Regular rate and rhythm. ABDOMEN: Soft, no tenderness. No guarding. No rigidity. Extremities: No edema of the feet. Skin examination: No rash or mass palpable. The patient did have a left heel blister, but no sign of surrounding swelling, redness. Right heel did have a chronic rash. No cellulitis. Neurological: Patient is awake, alert, oriented. Mood and affect normal. LABS: Hemoglobin is 10.4, white count 13.2 with a BUN of 30, creatinine 0.77 . Electrolytes have been normal. Urine is negative. DIAGNOSTIC IMPRESSION AND PLAN: Patient admitted to the hospital with sepsis in this patient did have a fever, elevated white count source, possible pneumonia as currently no other obvious focus of infection. Urine has been negative. Abdomen soft on clinical examination and no evidence of any cellulitis. PLAN: 1. We will try to obtain sputum for Gram stain and culture. 2. Continue the patient on Rocephin and Zithromax. 3. Bilateral heel protector. 4. We will follow on clinical condition and culture to further adjust medication if needed. Thank you for this consultation. We will follow this patient along with you. MMODL / IJN: [id number] / MTDD
[2020-03-20] MEDS: SODIUM CHLORIDE 0.9% 1,000 ML IV SCH ×2 (02:32→19:10)
[2020-03-20 06:25] LABS: Basophils % (A) 1 %; Eosinophils # (A) 0.2 k/uL (0-0.7); Eosinophils % (A) 2 %; HCT 25.7 % (39.0-53.0); Hypochromasia Slight; Lymphocytes # (A) 1.4 k/uL (1.0-4.8); Lymphocytes % (A) 17 %; MCH 27.6 pg (25.0-35.0); MCHC 32.2 g/dL (31.0-37.0); MCV 85.7 fL (80.0-100.0); Mean Platelet Volume 6.9; Monocytes # (A) 0.7 k/uL (0-1.0); Monocytes % (A) 9 %; Neutrophils # (A) 5.8 k/uL (1.3-7.7); Neutrophils % (A) 69 %; Platelet Count 205 k/uL (150-450); RBC 2.99 m/uL (4.30-5.90); RDW 15.9 % (11.5-15.5); WBC 8.5 k/uL (3.8-10.6)
[2020-03-20 06:28] LABS: HGB 8.3 gm/dL (13.0-17.5)
[2020-03-20] MEDS: ASCORBIC ACID 500 MG TAB PO SCH (07:55)
[2020-03-20] MEDS: RIVAROXABAN 20 MG TAB PO SCH (07:56)
[2020-03-20] MEDS: FUROSEMIDE 40 MG TAB PO SCH ×2 (07:56→21:30)
[2020-03-20] MEDS: oxyCODONE-APAP 10-325MG 1 EACH TAB PO PRN (07:56)
[2020-03-20] MEDS: GABAPENTIN 300 MG CAP PO SCH ×2 (07:57→21:30)
[2020-03-20] MEDS: METOPROLOL TARTRATE 25 MG TAB PO SCH ×2 (08:02→21:30)
[2020-03-20] MEDS ORDERED: AZITHROMYCIN 500 MG TAB PO SCH (09:00)
[2020-03-20] MEDS ORDERED: FAMOTIDINE 20 MG/2 ML VIAL IV SCH (09:00)
--- NOTE | 2020-03-20 09:32 | XR ---
EXAMINATION TYPE: XR chest 2V DATE OF EXAM: 03/20/2020 COMPARISON: Chest x-ray 03/19/2020 HISTORY: Pneumonia TECHNIQUE: Frontal and lateral views of the chest are obtained on 3 images. FINDINGS: Patient is post median sternotomy. There are prominent lung volumes with flattening the he midiaphragms. Interstitium is increased. There is no evident pneumothorax or pleural effusion. Heart is enlarged. Aorta is dense. Prominence of pulmonary artery may be indicative of pulmonary artery hyp ertension. IMPRESSION: Findings are similar to prior exam. Cardiomegaly and COPD. Correlate for pulmonary arter y hypertension. There are some interstitial changes within the lungs.
[2020-03-20 09:51] LABS: African American GFR (CKD) 101.9 (60.0-200.0); Anion Gap 5.2 mmol/L (4.00-12.00); BUN/Creat Ratio 41.43 Ratio (12.00-20.00); Carbon Dioxide 29.8 mmol/L (21.6-31.8); Non-African American GFR(CKD) 87.9 (60.0-200.0); Potassium 3.6 mmol/L (3.5-5.5)
--- NOTE | 2020-03-20 11:27 | P.PN ---
Subjective This is a pleasant 80 years old male with multiple medical problems including atrial fibrillation, heart failure, COPD, hypertension, osteoarthritis, hyperthyroidism, chronic back pain and he follows up with the pain clinic and Dr. Chan Morin Morganza for years. Also he sees Dr. Caro and Dr. Linares. He was recently treated for bilateral leg cellulitis about 2-3 months ago He continued to smoke about one cigarette a week as per daughter. He drinks alcohol occasionally on no illicit drugs. Patient is poor historian today and information was obtained from the patient and his daughter justyna at bedside . As per daughter who presents today because of confusion and high fever. She states that about one week ago he went to urgent care because of urinary symptoms and was diagnosed with UTI and he got a shot and prescribed nitrof urantoin which he was taken however over the last few days he was getting more confused and he had a fever as per daughter its 102.3.. However when asked the patient he denies urinary symptoms like burning or dysuria or increased frequency or urgency. He denies diarrhea but he has constipation. He complains from significant pain in his left arm joints especially the left elbow and the left wrist although he denies trauma, his left upper extremity is slightly swollen compared to the right side. Also I complains from pain in his right leg which is a slightly swollen but no redness and also he has an ulcer over the lateral malleolus with some discharge and he follow-up with wound clinic . Also he complains from just pain in the left upper chest, nonspecific for 2-3 weeks, nonradiating mild to moderate in severity. With some coughing and white phlegm especially over the last 3 days. On admission he has a fever of 101.5 Labs showing the Sp 13.2 K, hemoglobin 10.4, platelet 282. INR 1.2, BMP is unremarkable. Liver enzymes not elevated. High lactic acid 2.2, coronary varus not detected Chest x-ray reviewed by me showing COPD changes with no acute findings, no change from previous chest x-ray 02/05, however final report per radiologist: there is some mild pulmonary interstitial density in both lungs consistent with fibrosis. This appears slightly increased compared to last exam. Acute mild interstitial pneumonia as possible EKG showing atrial fibrillation with RVR at 108, right bundle-branch block 03/20/2020 Patient is awake and alert today, he is back to his baseline mental status. He still complaining from pain and swelling in his bilateral feet , as well as left upper extremity joints, shoulder, elbow and wrist as well as mild hand swollen . No much respiratory symptoms, no chest pain or coughing. His left upper chest pain is improved but he has more tenderness around the left shoulder. No abdominal pain or change in bowel habits. Bowman catheter is in place. He still has fever of 99.9. Rest of vitals are stable. His leukocytosis is improved to normal at 8.5K, hemoglobin dropped to 8.3, Platelets is also troponins 205K, possible hemodilution. BMP is stable. Troponin is negative at 0.014. Repeat chest x-ray from today showing similar to previous x-ray. With correct megaly and COPD. Patient looks like he has sepsis, no shortness source of the sepsis, could be the joints or the right lower extremity wound or cellulitis. However there is n o significant redness. However he has warmth in both feet and in the left upper extremity Also we going to consult orthopedic team for his arthritis, although we will check uric acid. Infectious disease on the case and currently discovered with ceftriaxone and Zithromax Review of Systems -CONSTITUTIONAL: Positive for fever and malaise as above. HEENT: No recent visual problems or hearing problems. Denied any sore throat. CARDIOVASCULAR: No orthopnea, PND, no palpitations, no syncope. PULMONARY: No shortness of breath, no hemoptysis. GASTROINTESTINAL: No diarrhea, no nausea, no vomiting, no abdominal pain. Normoactive bowel sounds. NEUROLOGICAL: No headaches, no weakness, no numbness. Active Medications Generic Name Dose Route Start Last Admin Trade Name Yoana PRN Reason Stop Dose Admin Acetaminophen 1,000 mg 03/19/20 13:42 Acetaminophen Tab 500 Mg Tab PO Q6HR PRN Fever>101 Ascorbic Acid 1,000 mg 03/20/20 09:00 03/20/20 07:55 Ascorbic Acid 500 Mg Tab PO 1,000 mg DAILY JULISSA Administration Atorvastatin Calcium 40 mg 03/19/20 21:00 03/19/20 20:40 Atorvastatin 40 Mg Tab PO 40 mg HS JULISSA Administration Azithromycin 500 mg 03/20/20 09:00 03/20/20 07:55 Azithromycin 500 Mg Tab PO 03/24/20 09:01 500 mg DAILY JULISSA Administration Budesonide/Formoterol Fumarate 2 puff 03/20/20 08:00 Symbicort 80-4.5 Mcg Inhaler INHALATION RT-BID JULISSA Famotidine 20 mg 03/20/20 09:00 03/20/20 07:55 Famotidine 20 Mg/2 Ml Vial IV 20 mg Q12HR JULISSA Administration Furosemide 40 mg 03/19/20 21:00 03/20/20 07:56 Furosemide 40 Mg Tab PO 40 mg BID JULISSA Administration Gabapentin 600 mg 03/19/20 21:00 03/20/20 07:57 Gabapentin 300 Mg Cap PO 600 mg BID JULISSA Administration Sodium Chloride 1,000 mls @ 75 mls/hr 03/19/20 15:15 03/20/20 02:32 Saline 0.9% IV Not Given .[id number] JULISSA Ceftriaxone Sodium 2 gm/ 50 mls @ 100 mls/hr 03/20/20 09:00 03/20/20 07:55 Sodium Chloride IVPB 03/22/20 09:01 100 mls/hr Q24HR JULISSA Administration Metoprolol Tartrate 25 mg 03/19/20 21:00 03/20/20 08:02 Metoprolol Tartrate 25 Mg Tab PO Not Given BID JULISSA Miscellaneous Information 1 each 03/19/20 15:11 Pneumonia Protocol Utilized 1 Each Misc PO ONCE PRN Per Protocol Oxycodone/Acetaminophen 1 each 03/19/20 17:44 03/20/20 07:56 Oxycodone-Apap 10-325mg 1 Each Tab PO 1 each Q6H PRN Administration Pain Rivaroxaban 20 mg 03/20/20 09:00 03/20/20 07:56 Rivaroxaban 20 Mg Tab PO 20 mg DAILY JULISSA Administration Objective - Vital Signs Vital signs: Vital Signs Temp 99.9 F H 03/20/20 09:27 Pulse 75 03/20/20 09:27 Resp 20 03/20/20 09:27 BP 102/58 03/20/20 09:27 Pulse Ox 97 03/20/20 09:27 Intake & Output 03/19/20 03/20/20 03/20/20 18:59 06:59 18:59 Intake Total 650 Output Total 650 650 Balance 650 -650 -650 Weight 75.75 kg Intake: Intake, IV Titration 450 Amount Azithromycin 500 mg In 250 Sodium Chloride 0.9% 250 ml @ 250 mls/hr IVPB ONCE STA Rx#:[id number] Sodium Chloride 0.9% 1, 200 000 ml @ 75 mls/hr IV . [id number] [facility] Rx#:[id number] Oral 200 Output: Urine 650 650 Other: Voiding Method Indwelling Catheter Indwelling Catheter Indwelling Catheter - Exam GENERAL: The patient is alert and oriented 3, not in any acute distress. Well developed, well nourished. HEENT: Pupils are round and equally reacting to light. EOMI. No scleral icterus. No conjunctival pallor. Normocephalic, atraumatic. No pharyngeal erythema. No thyromegaly. CARDIOVASCULAR: S1 and S2 present. No murmurs, rubs, or gallops. PULMONARY: Chest is clear to auscultation, no wheezing or crackles. ABDOMEN: Soft, nontender, nondistended, normoactive bowel sounds. No palpable organomegaly. MUSCULOSKELETAL: No joint swelling or deformity. -EXTREMITIES: No cyanosis, clubbing, Both feet are swollen Right leg is more swollen compared to the left side and there is 1 inch wound over the right lateral malleolus with purulent discharge, no significant redness while there is tenderness. -Also there is mild swelling and tenderness in the left wrist and left elbow and to lesser extent in the left shoulder with tenderness and the surrounding area in the left upper chest with restricted movement NEUROLOGICAL: Gross neurological examination did not reveal any focal deficits. SKIN: No rashes. No petechiae - Labs CBC & Chem 7: 03/20/20 05:59 03/20/20 05:59 Labs: Abnormal Lab Results - Last 24 Hours (Table) 03/19/20 03/19/20 03/19/20 Range/Units 13:49 13:49 13:49 WBC 13.2 H (3.8-10.6) k/uL RBC 3.81 L (4.30-5.90) m/uL Hgb 10.4 L (13.0-17.5) gm/dL Hct 32.9 L (39.0-53.0) % RDW 16.0 H (11.5-15.5) % Neutrophils # 10.1 H (1.3-7.7) k/uL Monocytes # 1.1 H (0-1.0) k/uL INR 1.2 H (<1.2) Carbon Dioxide 33 H (22-30) mmol/L BUN 30 H (9-20) mg/dL BUN/Creatinine Ratio (12.00-20.00) Ratio Glucose 195 H (74-99) mg/dL Plasma Lactic Acid Gio (0.7-2.0) mmol/L Calcium (8.7-10.3) mg/dL C-Reactive Protein 227.8 H (<10.0) mg/L Albumin 3.3 L (3.5-5.0) g/dL Procalcitonin (0.02-0.09) ng/mL Urine Protein (Negative) Amorphous Sediment (None) /hpf Urine Bacteria (None) /hpf Urine Mucus (None) /hpf 03/19/20 03/19/20 03/19/20 Range/Units 13:49 13:49 15:00 WBC (3.8-10.6) k/uL RBC (4.30-5.90) m/uL Hgb (13.0-17.5) gm/dL Hct (39.0-53.0) % RDW (11.5-15.5) % Neutrophils # (1.3-7.7) k/uL Monocytes # (0-1.0) k/uL INR (<1.2) Carbon Dioxide (22-30) mmol/L BUN (9-20) mg/dL BUN/Creatinine Ratio (12.00-20.00) Ratio Glucose (74-99) mg/dL Plasma Lactic Acid Gio 2.2 H* (0.7-2.0) mmol/L Calcium (8.7-10.3) mg/dL C-Reactive Protein (<10.0) mg/L Albumin (3.5-5.0) g/dL Procalcitonin 0.23 H (0.02-0.09) ng/mL Urine Protein 1+ H (Negative) Amorphous Sediment Occasional H (None) /hpf Urine Bacteria Occasional H (None) /hpf Urine Mucus Rare H (None) /hpf 03/20/20 03/20/20 Range/Units 05:59 05:59 WBC (3.8-10.6) k/uL RBC 2.99 L (4.30-5.90) m/uL Hgb 8.3 L D (13.0-17.5) gm/dL Hct 25.7 L (39.0-53.0) % RDW 15.9 H (11.5-15.5) % Neutrophils # (1.3-7.7) k/uL Monocytes # (0-1.0) k/uL INR (<1.2) Carbon Dioxide (22-30) mmol/L BUN 29.0 H (9-20) mg/dL BUN/Creatinine Ratio 41.43 H (12.00-20.00) Ratio Glucose 149 H (74-99) mg/dL Plasma Lactic Acid Gio (0.7-2.0) mmol/L Calcium 8.0 L (8.7-10.3) mg/dL C-Reactive Protein (<10.0) mg/L Albumin (3.5-5.0) g/dL Procalcitonin (0.02-0.09) ng/mL Urine Protein (Negative) Amorphous Sediment (None) /hpf Urine Bacteria (None) /hpf Urine Mucus (None) /hpf Microbiology - Last 24 Hours (Table) 03/20/20 04:21 Sputum Culture - Preliminary Sputum 03/19/20 15:59 Gram Stain - Preliminary Foot - Right Wound Culture - Preliminary 03/19/20 15:59 Anaerobic Culture - Preliminary Foot - Right Assessment and Plan Assessment: Sepsis, with fever and leukocytosis. I think most likely is a due to right leg cellulitis rather than pneumonia right leg cellulitis Right lateral malleolus wound with some purulent discharge Left wrist, elbow and shoulder arthritis Possible mild bilateral interstitial pneumonitis versus fibrosis. Rule out ca rdiac causes Left upper chest pain could be related to his left upper extremity pain Mild A. fib with RVR, on exam. Mild COPD exacerbation Chest pain rule out cardiac or pulmonary causes Dehydration with elevated lactic acid at 2.2 Plan: This is a pleasant 80 years old male who presents with sepsis cellulitis and possible pneumonia continue with antibiotic. Currently is on Zithromax and ceftriaxone. Consult infectious disease team. Also we will check troponins for chest pain and A. fib and RVR, although chest pain is resolved. Consult orthopedic team and check uric acid Labs and medication were reviewed.. Continue same treatment. Continue with symptomatic treatment. Resume home medication. Monitor lytes and vitals. DVT and GI prophylaxis. Further recommendations depends on the clinical course of the patient DVT prophylaxis: xarelto GI Prophylaxis: Pepcid PT/OT: Hold for now Prognosis is guarded
[2020-03-20] MEDS: SYMBICORT 80-4.5 MCG INHALER INHALATION SCH ×2 (11:54→20:27)
--- NOTE | 2020-03-20 14:35 | P.CNOR ---
History of Present Illness - HPI Consult date: 03/20/20 Consult reason: joint pain History of present illness: Patient is an 80-year-old male who was admitted to [facility] on 03/19/2020 with concerns of sepsis and exacerbations of multiple medical com orbidities. Patient has had multiple hospital admissions since November that are well documented. Recently patient was diagnosed by urgent care with UTI and started on oral antibiotics. He presented to the hospital yesterday with generalized fatigue, and according to family confusion along with fever. He was then admitted to [facility] under internal medicine for further workup. Patient is currently being followed by both infectious disease and internal medicine, there is a concern for a possible pneumonia. Our orthopedic team was consulted due to the patient complaining of left upper extremity pain along with bilateral lower extremity pain. Patient was evaluated at bedside by myself and Dr. Augustin today. Patient has a history of documented left shoulder osteo arthritis, he has received a steroid injection by Dr. López in the outpatient setting. This did not provide any relief. He does have general pain involving the left elbow and left hand. He denies any recent trauma. With regards to the bilateral lower extremity is, he notes most of discomfort surrounding his left knee. He does have some mild right knee pain. He has a history of bilateral total hip arthroplasties that were done many years ago [place]. He is complaining of no hip pain at this time. He has history of a wound on the lateral malleolus of his right ankle that has been there for many years. There is also a new documented blister forming on the heel of his left foot. Patiently currently denies any right upper extremity pain. He denies any new onset cervical, thoracic or lumbar pain. He does have a history of 2 previous lumbar surgeries, these were done more than 25 years ago. Patient states after the second surgery he did develop issues with his right lower extremity that have been chronic. 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 I did reach out to the patient's today via phone to gather more information regarding his current medical condition. She states that over the last 6-7 years of patient's able toward status is significantly decreased from utilizing a cane and walker to now utilizing mainly a wheelchair. He has home therapy that comes out 3 or 4 days a week to work with him. She states that he has been hospitalized many times over the last 3 or 4 months with different medical conditions. She states that he doesn't walk very much anymore. Review of Systems Constitutional: Reports as per HPI Past Medical History Past Medical History: Atrial Fibrillation, Heart Failure, COPD, Hypertension, Myocardial Infarction ([place]), Musculoskeletal Disorder, Osteoarthritis (OA), Pneumonia, Thyroid Disorder Additional Past Medical History / Comment(s): left breast mass HX OF COLON POLYPS. HX RIGHT BREAST MASS. O2 AT 2L NC @HS AND PRN. Hx Aspiration Pneumonia R/T "FLAPPER." HX OF THYROID PROBLEM - NO TX NOW. CHRONIC BACK PAIN, RUPESH LEG NT. RT FOOT/ANKLE EDEMA, WEARS TEDS. RUPESH CTS Last Myocardial Infarction Date:: 1987 History of Any Multi-Drug Resistant Organisms: MRSA Year Discovered:: 1988-chest, 03/2012-01/2013 ankle sore MDRO Source:: staph after open heart; Right Ankle pressure sore Past Surgical History: Back Surgery, Coronary Bypass/CABG, Joint Replacement, Orthopedic Surgery Additional Past Surgical History / Comment(s): left carpel tunnel, CARPAL TUNNEL RIGHT x 2. CABG 1987 X2. RUPESH SCOPES KNEES. Rupesh Hip Replacement, Nicholas Fundoplicaton. Rt Shoulder Rotator Cuff. BACK X2. HX OF EPIDURALS FOR PAIN. Past Anesthesia/Blood Transfusion Reactions: No Reported Reaction Past Psychological History: No Psychological Hx Reported Smoking Status: Former smoker Past Alcohol Use History: None Reported Past Drug Use History: None Reported - Past Family History Daughter(s) Family Medical History: Cancer Father History Unknown: Yes Mother Family Medical History: No Reported History Medications and Allergies Home Medications Medication Instructions Recorded Confirmed Type Metoprolol Tartrate [Lopressor] 25 mg PO BID 08/06/13 03/19/20 History Rivaroxaban [Xarelto] 20 mg PO DAILY 08/06/13 03/19/20 History Furosemide 40 mg PO BID 08/09/13 03/19/20 History Fluticasone/Salmeterol [Advair 1 puff INHALATION RT-BID 08/18/14 03/19/20 History 250-50 Diskus] Tiotropium 18 Mcg/Puff [Spiriva] 1 cap INHALATION RT-DAILY 08/18/14 03/19/20 History Atorvastatin [Lipitor] 40 mg PO HS 01/20/18 03/19/20 History Multivitamin [Men's Multi-Vitamin] 1 tab PO DAILY 01/20/18 03/19/20 History Albuterol Sulfate [Ventolin HFA] 2 puff INHALATION RT-QID PRN 11/22/19 03/19/20 History Ipratropium-Albuterol Nebulize 3 ml INHALATION RT-QID 11/22/19 03/19/20 History [Duoneb 0.5 mg-3 mg/3 ml Soln] Acetaminophen Tab [Tylenol] 650 mg PO Q6HR PRN tab 01/11/20 03/19/20 Rx Digoxin [Lanoxin] 125 mcg PO DAILY tab 01/11/20 03/19/20 Rx Gabapentin 600 mg PO BID #6 tab 01/11/20 03/19/20 Rx oxyCODONE HCL/ACETAMINOPHEN 1 tab PO TID PRN #9 tab 01/11/20 03/19/20 Rx [Percocet 10-325 mg] Ascorbic Acid [Vitamin C] 1,000 mg PO DAILY 03/19/20 03/19/20 History Calcium Carbonate [Calcium] 600 mg PO DAILY 03/19/20 03/19/20 History Cholecalciferol [Vitamin D3 (25 1,000 unit PO DAILY 03/19/20 03/19/20 History Mcg = 1000 Iu)] Cyanocobalamin (Vitamin B-12) 1,000 mcg PO DAILY 03/19/20 03/19/20 History [Vitamin B-12] Nitrofurantoin Monohyd/M-Cryst 100 mg PO BID 03/19/20 03/19/20 History [Macrobid] Allergies Allergy/AdvReac Type Severity Reaction Status Date / Time No Known Allergies Allergy Verified 03/19/20 14:36 Physical Examination Left upper extremity: No obvious open lesions or sores are present throughout the extremity. There is generalized swelling of the upper extremity. There are no significant areas of erythema. There is no areas of significant fluctuance appreciated. He's tender with palpation throughout the left shoulder. His range of motion is very limited with regards to afford elevation and abduction. He has generalized tenderness with palpation surrounding the elbow, passive range of motion of the left elbow reproduces no significant discomfort. I'm unable to appreciate any effusion surrounding the elbow. No tenderness with palpation throughout the forearm. He is very tender at the base of the first CMC joint. He is able to wiggle the remaining fingers and minimal difficulty. There is no other areas of significant pain with palpation throughout the hand. His radial and ulnar puls es are 2+. His sensory exam to light touch is intact throughout the extremity. Left lower extremity: Well-healed lateral hip incision, no areas of erythema or soft tissue swelling. Logroll maneuver reproduces no pain in the groin. He is nontender with palpation of the proximal femur. There is effusion noted over the left knee, he is tender with palpation over the medial and lateral joint lines. Extension and flexion of the knee also does reproduce discomfort. There is no significant areas of erythema, soft tissue swelling or warmth noted over the left knee. The calf is soft, there is no tenderness with palpation. Plantar flexion, dorsiflexion, EHL, FHL are intact. Dorsalis pedis pulses 2+. There is a significant blister noted along the medial and plantar aspect of the heel, it is an open at this time. Right lower extremity: Well-healed lateral hip incision, no areas of erythema or soft tissue swelling. Logroll maneuver reproduces no pain in the groin. He is nontender with palpation of the proximal femur. Minimal effusion present over the right knee, there is no significant tenderness with palpation along the medial and lateral joint lines. Extension and flexion of the knee reproduces minimal discomfort. No significant areas of erythema, soft tissue swelling or warmth over the right knee. The calf is soft, no tenderness with palpation. Dorsalis pedis pulses 2+. There is a wound noted on the lateral malleolus of the right ankle, it is about a nickel size, it is circular. There is no obvious drainage. There is no areas of erythema surrounding the wound. Spine: Gen. inspection of the cervical, thoracic and lumbar spine. Demonstrate no areas of erythema or other skin changes. There are well-healed incisions in the lumbar spine region. No significant paraspinal or midline tenderness with palpation. There is a small decubitus ulcer noted in the sacral region, there is ointment present. I'm unable to appreciate any significant areas of erythem a, drainage or surrounding fluctuance. Results - Labs Labs: Abnormal Lab Results - Last 24 Hours (Table) 03/19/20 03/19/20 03/19/20 Range/Units 13:49 13:49 15:00 RBC (4.30-5.90) m/uL Hgb (13.0-17.5) gm/dL Hct (39.0-53.0) % RDW (11.5-15.5) % Carbon Dioxide 33 H (22-30) mmol/L BUN 30 H (9-20) mg/dL BUN/Creatinine Ratio (12.00-20.00) Ratio Glucose 195 H (74-99) mg/dL Calcium (8.7-10.3) mg/dL C-Reactive Protein 227.8 H (<10.0) mg/L Albumin 3.3 L (3.5-5.0) g/dL Procalcitonin 0.23 H (0.02-0.09) ng/mL Urine Protein 1+ H (Negative) Amorphous Sediment Occasional H (None) /hpf Urine Bacteria Occasional H (None) /hpf Urine Mucus Rare H (None) /hpf 03/20/20 03/20/20 Range/Units 05:59 05:59 RBC 2.99 L (4.30-5.90) m/uL Hgb 8.3 L D (13.0-17.5) gm/dL Hct 25.7 L (39.0-53.0) % RDW 15.9 H (11.5-15.5) % Carbon Dioxide (22-30) mmol/L BUN 29.0 H (9-20) mg/dL BUN/Creatinine Ratio 41.43 H (12.00-20.00) Ratio Glucose 149 H (74-99) mg/dL Calcium 8.0 L (8.7-10.3) mg/dL C-Reactive Protein (<10.0) mg/L Albumin (3.5-5.0) g/dL Procalcitonin (0.02-0.09) ng/mL Urine Protein (Negative) Amorphous Sediment (None) /hpf Urine Bacteria (None) /hpf Urine Mucus (None) /hpf Microbiology - Last 24 Hours (Table) 03/20/20 04:21 Gram Stain - Preliminary Sputum Sputum Culture - Preliminary 03/19/20 15:59 Gram Stain - Preliminary Foot - Right Wound Culture - Preliminary 03/19/20 15:59 Anaerobic Culture - Preliminary Foot - Right H & H 12/27/20 12/28/20 Range/Units 13:49 05:59 Hgb 10.4 L 8.3 L D (13.0-17.5) gm/dL Hct 32.9 L 25.7 L (39.0-53.0) % Coagulation 03/19/20 Range/Units 13:49 INR 1.2 H (<1.2) Result Diagrams: 03/20/20 05:59 03/20/20 05:59 - Diagnostic results Shoulder x-ray: report reviewed, image reviewed Elbow x-ray: report reviewed, image reviewed Wrist/Hand x-ray: report reviewed, image reviewed Assessment and Plan Assessment: Left shoulder osteoarthritis Left elbow osteoarthritis Left hand first CMC joint arthritis Left knee effusion Left heel wound Chronic right ankle wound Chronic sacral decubitus ulcer History of lumbar spine surgery Multiple medical comorbidities Plan: Imaging: I was able to review x-ray reports and images of the left shoulder, elbow and hand/wrist. Images demonstrated no acute fractures or dislocations. There is obvious osteoarthritic changes noted throughout the left shoulder, left elbow and left first CMC joint. Plan: I was able to discuss the case, including physical exam findings and imaging studies my attending Dr. Augustin. He was at bedside today to explain the treatment options for the patient. To help determine source of sepsis, we did recommend aspiration of his left knee with lab tests to be done on the left knee fluid. The risk and benefits of the procedure were discussed the patient today at bedside, he is in good understanding would like to proceed. Please see procedure note for further detail. With regards to the arthritis of the joints of the left upper extremity, recommend conservative management, this included ice and use of oral pain medication. Patient is a very poor surgical candidate for a left total shoulder arthroplasty which would be the only definitive treatment for his problem. Consult will be placed for wound care for right ankle and left foot wound, along with sacral decubitus ulcer. Continue the ankle boots that the patient is currently wearing. Infectious disease and internal medicine recommendations We'll continue to follow and review results of left knee aspiration Anticipate no general orthopedic surgical intervention at this time We'll be available for any further questions regarding this patient. Time with Patient: Less than 30
--- NOTE | 2020-03-20 14:57 | P.PCN ---
Date of Procedure: 03/20/20 Preoperative Diagnosis: Left knee pain, left knee effusion Postoperative Diagnosis: Same Procedure(s) Performed: Left knee aspiration Implants: None Anesthesia: regional Surgeon: Jovani Griffin Estimated Blood Loss (ml): 1 Condition: stable Disposition: no change Indications for Procedure: Left knee pain, rule of septic joint Description of Procedure: Discussion of risk and benefits at bedside by Dr. Augustin and myself. Patient in good understanding and agreed with current treatment plan. A bedside time out was done with nursing staff, this was documented electronically and paper chart. Patient was in supine position, the knee was prepped with 1 iodine swab and 2 alcohol swabs. A 20 gauge needle was used to injection 3cc 1% plain lidocaine via the suprapatella approach. I then aspirated about 30cc of normal appearing joint fluid from the knee. Bandage was applied post procedure. I then switched to a sterile 18 gauge needle and utilized proper tubes for further lab testing. Tubes were then sent to the lab for further evaluation. Patient tolerated procedure well.
[2020-03-20 15:21] VITALS: BMI 24.6
[2020-03-20 16:08] LABS: Appearance,BF Cloudy; Color,BF Pink; Nucleated Cells, Body Fluid 3700 /uL
[2020-03-20 16:09] LABS: RBC, Body Fluid 38050 /uL
[2020-03-20 16:10] LABS: Mononuclear WBC,Body Fluid 14 %; Polynuclear WBC,Body Fluid 86 %; Total Cells Counted,Body Fluid 100
[2020-03-20] MEDS ORDERED: VANCOMYCIN IV PER PHARMACY 1 EACH MISC MISCELLANE PRN (18:34)
[2020-03-20] MEDS ORDERED: CEFEPIME 2 GM in SODIUM CHLORIDE 0.9% 100 ML IVPB ONE (19:00)
[2020-03-20] MEDS ORDERED: VANCOMYCIN 1,500 MG in SODIUM CHLORIDE 0.9% 250 ML IVPB ONE (19:00)
[2020-03-20 19:30] LABS: Basophils % (A) 0 %; Eosinophils # (A) 0.2 k/uL (0-0.7); Eosinophils % (A) 2 %; HGB 8.5 gm/dL (13.0-17.5); Hypochromasia Marked; Lymphocytes # (A) 1.5 k/uL (1.0-4.8); Lymphocytes % (A) 21 %; MCH 27.8 pg (25.0-35.0); MCHC 31.7 g/dL (31.0-37.0); MCV 87.8 fL (80.0-100.0); Mean Platelet Volume 6.9; Monocytes # (A) 0.6 k/uL (0-1.0); Monocytes % (A) 8 %; Neutrophils # (A) 4.6 k/uL (1.3-7.7); Neutrophils % (A) 65 %; Platelet Count 206 k/uL (150-450); RBC 3.07 m/uL (4.30-5.90); RDW 15.7 % (11.5-15.5)
[2020-03-20] MEDS: ATORVASTATIN 40 MG TAB PO SCH (21:30)
[2020-03-20] MEDS: FAMOTIDINE 20 MG TAB PO SCH (21:30)
--- NOTE | 2020-03-20 23:18 | PN ---
PROGRESS NOTE DATE OF SERVICE: 03/20/2020 REASON FOR FOLLOWUP: Fever and a question of pneumonia. INTERVAL HISTORY: The patient is currently afebrile. The patient is breathing more comfortably. The patient denies having any chest pain. He did have a cough sputum. No nausea, no vomiting, no abdominal pain or diarrhea. The patient also complains of pain to the right knee, which has been aspirated by Orthopedics. PHYSICAL EXAMINATION: Blood pressure is 108/60 with a pulse of 68, temperature 99.7. He is 97% on 2 L nasal cannula. General description is an elderly male lying in bed in no distress. RESPIRATORY SYSTEM: Unlabored breathing with decreased intensity of breath sounds. No wheeze. HEART: S1, S2. Regular rate and rhythm. ABDOMEN: Soft. No tenderness. Left knee did have a blister but no definite cellulitis. Right heel with no wound. LABS: Hemoglobin is 8.5, white count 7.0. BUN of 29, creatinine 0.7. DIAGNOSTIC IMPRESSION AND PLAN: Patient admitted to hospital with fever and cough with concern likely for pneumonia. The patient did have some local culture obtained from the left heel which had blistered, but no definite cellulitis showing MRSA and Gram-negative. Antibiotic has been adjusted to vancomycin and cefepime. Will wait for the sputum culture to finalize before adjusting antibiotic further and monitor his clinical course closely. MMODL / IJN: [id number] / MTDD
[2020-03-21] MEDS: SODIUM CHLORIDE 0.9% 1,000 ML IV SCH ×2 (00:29→18:17)
[2020-03-21] MEDS: oxyCODONE-APAP 10-325MG 1 EACH TAB PO PRN ×2 (05:06→16:31)
--- NOTE | 2020-03-21 07:35 | P.PN ---
Subjective Progress Note Date: 03/21/20 Principal diagnosis: sepsis Pt s/e this AM. He is resting comfortably without issues. He is currently in minimal pain. Cx were taken of knee as well as R foot. R foot showing growth. Currently no f/c/sob/cp. Nsg states low grade fever overnight. Objective - Vital Signs Vital signs: Vital Signs Temp 98.7 F 03/21/20 00:47 Pulse 62 03/21/20 00:47 Resp 20 03/20/20 19:00 BP 104/54 03/21/20 00:47 Pulse Ox 98 03/21/20 00:47 Intake & Output 03/20/20 03/21/20 03/21/20 18:59 06:59 18:59 Output Total 1450 1300 Balance -1450 -1300 Weight 75.75 kg Output: Urine 1450 1300 Other: Voiding Method Indwelling Catheter Indwelling Catheter - Exam GEN: AOX3, NAD VSS Inspection: [ppatient resting comfortably in bed in no acute distress] Palpation: [some tenderness to palpation of his left knee. No pain with right knee motion. No erythema or ecchymosis or edema] Motor: [4+]/5 shoulder abd/EF/EE/WF/intrinsics [4+]/5 DF/PF/EHL/FHL/HF/KE/KF mildly painful range of motion of left knee. No pain with passive motion. No erythema or ecchymosis edema of the right knee. Right foot or left knee. Right foot shows lateral malleolar ulcer without purulence at this time. Grade 2 Reflexes: 2/4 DTR all upper and LE Sensation intact to light touch in C5-T1 as well as L2-S1 distribution cranial nerve II through XII are grossly intact Negative Hoffmans negative Babinski and negative clonus bilaterally 2/4 distal pulses all extremities Compartments soft and compressive Refill brisk and less than 2 seconds in all extremities - Labs CBC & Chem 7: 03/20/20 19:16 03/20/20 05:59 Labs: Abnormal Lab Results - Last 24 Hours (Table) 03/20/20 03/20/20 03/20/20 Range/Units 05:59 14:43 19:16 RBC 3.07 L (4.30-5.90) m/uL Hgb 8.5 L (13.0-17.5) gm/dL Hct 27.0 L (39.0-53.0) % RDW 15.7 H (11.5-15.5) % BUN 29.0 H (9.0-27.0) mg/dL BUN/Creatinine Ratio 41.43 H (12.00-20.00) Ratio Glucose 149 H (70-110) mg/dL Calcium 8.0 L (8.7-10.3) mg/dL Synovial Crystals Seen A (None Seen) Microbiology - Last 24 Hours (Table) 03/19/20 15:59 Gram Stain - Preliminary Foot - Right Wound Culture - Preliminary Presumptive MRSA Gram Neg Bacilli 03/20/20 14:43 Gram Stain - Preliminary Knee - Left Wound Culture - Preliminary 03/20/20 14:43 Anaerobic Culture - Preliminary Knee - Left 03/20/20 14:43 Fungal Culture - Preliminary Knee - Left 03/19/20 14:46 Blood Culture - Preliminary Blood No Growth after 24 hours 03/19/20 14:39 Blood Culture - Preliminary Blood No Growth after 24 hours 03/20/20 04:21 Gram Stain - Preliminary Sputum Sputum Culture - Preliminary Assessment and Plan Assessment: 80-year-old male presenting with sepsis UTI possible pneumonia -Left knee swelling and pain -Grade 2 right lateral malleolus ulcer -Multiple medical comorbidities Plan: With regards to the arthritis of the joints of the left upper extremity, recommend conservative management, this included ice and use of oral pain medication. Patient is a very poor surgical candidate for a left total shoulder arthroplasty which would be the only definitive treatment for his problem. Consult will be placed for wound care for right ankle and left foot wound, along with sacral decubitus ulcer. Continue the ankle boots that the patient is currently wearing. Infectious disease and internal medicine recommendations We'll continue to follow and review results of left knee aspiration Anticipate no general orthopedic surgical intervention at this time We'll be available for any further questions regarding this patient.
[2020-03-21 08:23] LABS: Anisocytosis Slight; Basophils % (A) 0 %; Eosinophils # (A) 0.3 k/uL (0-0.7); Eosinophils % (A) 4 %; HCT 28.3 % (39.0-53.0); HGB 8.6 gm/dL (13.0-17.5); Hypochromasia Marked; Lymphocytes # (A) 1.8 k/uL (1.0-4.8); Lymphocytes % (A) 23 %; MCH 26.9 pg (25.0-35.0); MCHC 30.3 g/dL (31.0-37.0); MCV 88.7 fL (80.0-100.0); Mean Platelet Volume 7.3; Monocytes # (A) 0.6 k/uL (0-1.0); Monocytes % (A) 8 %; Neutrophils % (A) 62 %; Platelet Count 249 k/uL (150-450); RBC 3.19 m/uL (4.30-5.90); WBC 8.1 k/uL (3.8-10.6)
[2020-03-21] MEDS: SYMBICORT 80-4.5 MCG INHALER INHALATION SCH ×2 (08:23→20:54)
[2020-03-21] MEDS: GABAPENTIN 300 MG CAP PO SCH ×2 (08:40→20:04)
[2020-03-21] MEDS: ASCORBIC ACID 500 MG TAB PO SCH (08:40)
[2020-03-21] MEDS: FUROSEMIDE 40 MG TAB PO SCH ×2 (08:41→20:04)
[2020-03-21] MEDS: FAMOTIDINE 20 MG TAB PO SCH ×2 (08:41→20:04)
[2020-03-21] MEDS: CEFEPIME 2 GM in SODIUM CHLORIDE 0.9% 100 ML IVPB SCH ×2 (08:41→20:04)
[2020-03-21] MEDS: VANCOMYCIN 1,250 MG in SODIUM CHLORIDE 0.9% 250 ML IVPB SCH ×2 (08:41→20:04)
[2020-03-21] MEDS: METOPROLOL TARTRATE 25 MG TAB PO SCH ×2 (08:41→20:04)
[2020-03-21] MEDS: RIVAROXABAN 20 MG TAB PO SCH (09:51)
[2020-03-21 11:29] LABS: African American GFR (CKD) 101.9 (60.0-200.0); Anion Gap 1.8 mmol/L (4.00-12.00); BUN/Creat Ratio 38.57 Ratio (12.00-20.00); Carbon Dioxide 34.2 mmol/L (21.6-31.8); Non-African American GFR(CKD) 87.9 (60.0-200.0); Potassium 4.3 mmol/L (3.5-5.5)
[2020-03-21] MEDS ORDERED: ALBUTEROL NEBULIZED 2.5 MG/3 ML INHALATION PRN (14:18)
[2020-03-21] MEDS: IPRATROPIUM-ALBUTEROL 3 ML NEB INHALATION SCH ×2 (15:43→20:54)
--- NOTE | 2020-03-21 16:05 | PN ---
PROGRESS NOTE DATE OF SERVICE: 03/21/2020 This 80-year-old gentleman who was admitted with right leg cellulitis and as well as ulcer has some purulent discharge. The patient had features of sepsis. Cultures have grown presumptive MRSA and as well as gram-negative bacilli in the wound. The sputum culture also showing gram-negative bacilli. The possibility of pneumonia was also suspected and chest x-ray was done yesterday which was personally reviewed by me showed cardiomegaly and COPD. Patient will be closely monitored. PAST MEDICAL HISTORY: Reviewed. REVIEW OF SYSTEMS: CARDIOVASCULAR SYSTEM: No angina. RESPIRATORY SYSTEM: As mentioned earlier. GI: As mentioned earlier. : No dysuria. NERVOUS SYSTEM: As mentioned earlier. CURRENT MEDICATIONS: Current medications are reviewed and include: Tylenol, vitamin C, Lipitor, Symbicort, cefepime, Santyl, Pepcid, Lasix, Neurontin, Lopressor, vancomycin. Doses are reviewed. PHYSICAL EXAMINATION: Patient is alert and oriented x3. Pulse 53, blood pressure 90/53, respiration 22, temperature 98.4, pulse ox 95% on 2 L. HEENT: Conjunctivae normal. NECK: No jugular venous distention. CARDIOVASCULAR: S1, S2 muffled. RESPIRATORY: Breath sounds diminished at the bases. Bilateral scattered rhonchi and crackles. ABDOMEN: Soft, nontender. LEGS: Right leg ulcer. NERVOUS SYSTEM: No focal deficits. LABS: WBC 8.1, hemoglobin is 8.6. Sodium 144, potassium 4.3, creatinine 0.7 and calcium is 8. C-reactive protein is 227. COVID-19 is negative. Calcium pyrophosphate crystals are noted in the synovial fluid analysis. ASSESSMENT: 1. Right foot ulcer with possible sepsis secondary to methicillin-resistant Staphylococcus aureus and as well as gram-negative bacilli present on admission. 2. Gram-negative bacilli from the sputum, rule out pneumonia. 3. Left wrist, elbow and shoulder arthritis possibly pseudogout, also bilateral interstitial pneumonia versus fibrosis. 4. Left upper chest pain secondary to left upper extremity pain. 5. Elevated lactic acid possibly secondary sepsis, present on admission. 6. History of atrial fibrillation. 7. History of congestive heart failure. 8. History of chronic obstructive pulmonary disease. 9. Hypertension. 10.History of myocardial infarction. 11.History of degenerative joint disease. 12.History of pneumonia. 13.History of hypothyroidism. 14.History of left breast mass. 15.History of colonic polyp. 16.History of back surgery. 17.History of coronary artery disease, coronary artery bypass grafting. 18.Remote history of nicotine dependence. 19.FULL CODE. RECOMMENDATIONS AND DISCUSSION: This 80-year-old gentleman presented with multiple complex medical issues, we will monitor the patient closely. The patient is started on cefepime. We will continue to monitor. Infectious Disease has been consulted, local treatment. Orthopedics also consulted. Resume the home medications. PT, OT evaluation. 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 Guarded prognosis because of multiple complex medical issues. Patient might require IV antibiotic treatment. Further recommendations to follow. Home medication will continued. MMODL / IJN: [id number] /
[2020-03-21] MEDS: COLLAGENASE 250 UNIT/GM OINTMENT 30 GM TUBE TOPICAL SCH (16:19)
--- NOTE | 2020-03-21 18:36 | XR ---
EXAMINATION TYPE: XR chest 1V portable DATE OF EXAM: 03/21/2020 COMPARISON: 03/20/2020 INDICATION: Choking and coughing TECHNIQUE: Frontal and lateral views of the chest are obtained. FINDINGS: The heart size is mildly prominent. The pulmonary vasculature is prominent. No suspicious focal consolidation is evident. Some minimal nonspecific scattered areas of infiltrate may be present. Correlate for atypical pneumonia. Sternotomy wires are present.. IMPRESSION: 1. No suspicious focal consolidation to suggest aspiration. 2. There are a few peripheral increased lung markings which are nonspecific. Subsegmental atelectasis and atypical pneumonia could be considered.
[2020-03-21] MEDS: ATORVASTATIN 40 MG TAB PO SCH (20:04)
--- NOTE | 2020-03-21 22:50 | PN ---
PROGRESS NOTE DATE OF SERVICE: 03/21/2020 REASON FOR FOLLOWUP: 1. Gram-negative pneumonia. 2. Right lateral ankle wound. INTERVAL HISTORY: The patient is currently afebrile. The patient is breathing comfortably. The patient denies having any chest pain or shortness of breath. He did have a cough, bringing up some sputum. No nausea, no vomiting, no abdominal pain or any diarrhea. PHYSICAL EXAMINATION: Blood pressure is 93/47, pulse of 68, temperature 98.4. He is 98% on 2 L nasal cannula. General description is an elderly male lying in bed in no distress. RESPIRATORY SYSTEM: Unlabored breathing with decreased intensity of breath sounds. No wheeze. HEART: S1, S2. Regular rate and rhythm. ABDOMEN: Soft. No tenderness. LABS: BUN of 26, creatinine 0.7. Sputum showing Gram-negative. Superficial wound on the right lateral ankle shows MRSA and Pseudomonas. DIAGNOSTIC IMPRESSION AND PLAN: 1. Patient admitted to hospital with a fever, shortness of breath and cough, more likely secondary to a Gram-negative pneumonia. Patient is covered with cefepime; to continue while waiting for the sputum culture to finalize. 2. Patient with a wound on the right lateral ankle area with no evidence of any cellulitis. Local culture positive for MRSA and Pseudomonas, more likely colonizer. No need for any specific treatment for the same thing. MMODL / IJN: [id number] /
[2020-03-22] MEDS: SODIUM CHLORIDE 0.9% 1,000 ML IV SCH ×2 (04:40→20:42)
[2020-03-22 07:10] LABS: Basophils % (A) 0 %; Eosinophils # (A) 0.3 k/uL (0-0.7); Eosinophils % (A) 4 %; HGB 8.5 gm/dL (13.0-17.5); Hypochromasia Marked; Lymphocytes # (A) 1.6 k/uL (1.0-4.8); Lymphocytes % (A) 27 %; MCH 26.8 pg (25.0-35.0); MCHC 30.4 g/dL (31.0-37.0); MCV 88.2 fL (80.0-100.0); Mean Platelet Volume 6.9; Monocytes # (A) 0.5 k/uL (0-1.0); Monocytes % (A) 8 %; Neutrophils # (A) 3.5 k/uL (1.3-7.7); Neutrophils % (A) 57 %; Platelet Count 243 k/uL (150-450); RBC 3.18 m/uL (4.30-5.90); RDW 15.7 % (11.5-15.5); WBC 6.1 k/uL (3.8-10.6)
[2020-03-22] MEDS ORDERED: NON FORMULARY DRUG (Tiotropium 18 Mcg/Puff 1 PUFF Inhaler) INHALATION SCH (08:00)
[2020-03-22] MEDS: ASCORBIC ACID 500 MG TAB PO SCH (08:30)
[2020-03-22] MEDS: FUROSEMIDE 40 MG TAB PO SCH ×2 (08:30→20:40)
[2020-03-22] MEDS: MULTIVITAMINS, THERA 1 EACH TAB PO SCH (08:30)
[2020-03-22] MEDS: METOPROLOL TARTRATE 25 MG TAB PO SCH ×2 (08:30→20:40)
[2020-03-22] MEDS: GABAPENTIN 300 MG CAP PO SCH ×2 (08:30→20:40)
[2020-03-22] MEDS: CALCIUM CARBONATE 500 MG CHEWABLE PO SCH (08:30)
[2020-03-22] MEDS: FAMOTIDINE 20 MG TAB PO SCH ×2 (08:30→20:40)
[2020-03-22] MEDS: RIVAROXABAN 20 MG TAB PO SCH (08:31)
[2020-03-22] MEDS: CHOLECALCIFEROL 1,000 UNIT TAB PO SCH (08:31)
[2020-03-22] MEDS: CYANOCOBALAMIN 500 MCG TAB PO SCH (08:31)
[2020-03-22] MEDS: SYMBICORT 80-4.5 MCG INHALER INHALATION SCH ×2 (08:32→19:52)
[2020-03-22] MEDS: IPRATROPIUM-ALBUTEROL 3 ML NEB INHALATION SCH ×4 (08:32→19:53)
[2020-03-22] MEDS: VANCOMYCIN 1,250 MG in SODIUM CHLORIDE 0.9% 250 ML IVPB SCH ×2 (08:34→20:41)
[2020-03-22] MEDS: CEFEPIME 2 GM in SODIUM CHLORIDE 0.9% 100 ML IVPB SCH ×2 (08:34→20:41)
[2020-03-22] MEDS: COLLAGENASE 250 UNIT/GM OINTMENT 30 GM TUBE TOPICAL SCH (08:46)
[2020-03-22] MEDS: oxyCODONE-APAP 10-325MG 1 EACH TAB PO PRN ×2 (09:02→20:40)
[2020-03-22 09:55] LABS: African American GFR (CKD) 96.4 (60.0-200.0); Anion Gap 12.3 mmol/L (4.00-12.00); BUN/Creat Ratio 33.75 Ratio (12.00-20.00); Calcium 8.2 mg/dL (8.7-10.3); Carbon Dioxide 24.7 mmol/L (21.6-31.8); Non-African American GFR(CKD) 83.2 (60.0-200.0); Potassium 3.7 mmol/L (3.5-5.5)
--- NOTE | 2020-03-22 10:18 | US ---
EXAMINATION TYPE: US venous doppler duplex UE LT DATE OF EXAM: 03/22/2020 COMPARISON: NONE CLINICAL HISTORY: left arm swelling, a-fib . SIDE PERFORMED: Left Visualized portions of the left internal jugular vein, subclavian vein, axillary vein, brachial veins , basilic vein, cephalic vein, radial and ulnar veins show no abnormal luminal echoes, there is color flow and venous waveforms are present Left Arm: Negative for DVT Grayscale, color Doppler, spectral Doppler imaging performed of the deep veins of the left upper extr emity. IMPRESSION: No evident deep venous thrombosis or superficial venous thrombosis in the left upper extremity
--- NOTE | 2020-03-22 11:03 | P.PN ---
Subjective Progress Note Date: 03/22/20 Principal diagnosis: Left knee pain/effusion, left shoulder, elbow, hand osteoarthritis, left foot blister, chronic right ankle wound, sepsis, possible UTI and pneumonia Patient was evaluated at bedside today, he is resting comfortably. He is having minimal discomfort in the left knee at this time. There's been no changes in symptoms of his left upper extremity. A Doppler was done today on that extremity due to the amount of swelling, was negative for any DVT. He notes m ost of his discomfort in the area of his sacral decubitus ulcer. His left heel and right foot at this time are causing no significant problems. He does feel better with regards to his breathing and overall medical state. Objective - Vital Signs Vital signs: Vital Signs Temp 97.8 F 03/22/20 05:39 Pulse 70 03/22/20 08:44 Resp 20 03/22/20 05:39 BP 145/77 03/22/20 05:39 Pulse Ox 98 03/22/20 05:39 Intake & Output 03/21/20 03/22/20 03/22/20 18:59 06:59 18:59 Intake Total 1500 300 Output Total 800 2900 Balance 700 -2600 Intake: Intake, IV Titration 1500 Amount Cefepime 2 gm In Sodium 100 Chloride 0.9% 100 ml @ 25 mls/hr IVPB Q12HR [facility] Rx #:[id number] Sodium Chloride 0.9% 1, 900 000 ml @ 75 mls/hr IV . [id number] [facility] Rx#:[id number] Vancomycin 1,250 mg In 250 Sodium Chloride 0.9% 250 ml @ 125 mls/hr IVPB Q12HR [facility] Rx#:[id number] Vancomycin 1,500 mg In 250 Sodium Chloride 0.9% 250 ml @ 125 mls/hr IVPB ONCE ONE Rx#:[id number] Oral 300 Output: Urine 800 2900 Uretheral (Bowman) 1000 Other: Voiding Method Indwelling Catheter Indwelling Catheter Indwelling Catheter - Exam Left knee: No significant effusion appreciated. There is no areas of erythema, skin is normal temperature no increase in warmth. Passive motion of the knee reproduces minimal discomfort. Calf is soft, no tenderness with palpation. Remaining orthopedic exam is unchanged since initial evaluation - Labs CBC & Chem 7: 03/22/20 05:55 03/22/20 05:55 Labs: Abnormal Lab Results - Last 24 Hours (Table) 03/21/20 03/22/20 03/22/20 Range/Units 05:40 05:55 05:55 RBC 3.18 L (4.30-5.90) m/uL Hgb 8.5 L (13.0-17.5) gm/dL Hct 28.0 L (39.0-53.0) % MCHC 30.4 L (31.0-37.0) g/dL RDW 15.7 H (11.5-15.5) % Carbon Dioxide 34.2 H (21.6-31.8) mmol/L Anion Gap 1.80 L 12.30 H (4.00-12.00) mmol/L BUN/Creatinine Ratio 38.57 H 33.75 H (12.00-20.00) Ratio Glucose 112 H (70-110) mg/dL Calcium 8.0 L 8.2 L (8.7-10.3) mg/dL Microbiology - Last 24 Hours (Table) 03/20/20 04:21 Gram Stain - Final Sputum Sputum Culture - Final Pseudomonas aeruginosa 03/19/20 15:59 Anaerobic Culture - Preliminary Foot - Right 03/19/20 15:59 Gram Stain - Final Foot - Right Wound Culture - Final Methicillin resist S. 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 Recommend conservative management, this to include ice and elevation along with continuation of pain medication. With regards to the arthritis of the joints of the left upper extremity, recommend conservative management, this included ice and use of oral pain medication. Doppler was negative for any source of DVT. Infectious disease, internal medicine and wound care recommendations No orthopedic surgical intervention at this time Orthopedically patient is stable at this time, we'll be signing off. We'll also be available for any questions regarding the patient. Time with Patient: Less than 30
--- NOTE | 2020-03-22 12:07 | P.GSCN ---
History of Present Illness Consult date: 03/22/20 Reason for Consult: wounds to sacrum, right ankle, left heel Requesting physician: Jovani Griffin History of present illness: This is an 80 year old gentleman who follows on an outpatient basis with Dr. Abraham. He has a previous medical history of multiple comorbid medical conditions including treatment for wounds to his sacrum and right ankle. He presented to [facility] emergency room on 03/19/20 with complaints of generalized weakness, malaise, chills, and myalgias all over. He was admitted with a diagnosis of sepsis and UTI with consultation placed to infectious disease, orthopedic surgery and cardiology. Due to his history of sacral and right ankle wounds consultation was placed to Dr. Yin for treatment recommendations. Review of Systems Review of symptoms was completed and was negative except as noted. - Constitutional Reports as per HPI, Reports chills, Reports fever, Reports malaise, Reports weakness Past Medical History Past Medical History: Atrial Fibrillation, Heart Failure, COPD, Hypertension, Myocardial Infarction (MA), Musculoskeletal Disorder, Osteoarthritis (OA), Pneumonia, Thyroid Disorder Additional Past Medical History / Comment(s): left breast mass HX OF COLON POLYPS. HX RIGHT BREAST MASS. O2 AT 2L NC @HS AND PRN. Hx Aspiration Pneumonia R/T "FLAPPER." HX OF THYROID PROBLEM - NO TX NOW. CHRONIC BACK PAIN, RUPESH LEG NT. RT FOOT/ANKLE EDEMA, WEARS TEDS. RUPESH CTS Last Myocardial Infarction Date:: 1987 History of Any Multi-Drug Resistant Organisms: MRSA Year Discovered:: MRSA 03/19/20, 03/2012-01/2013 ankle sore MDRO Source:: FOOT Past Surgical History: Back Surgery, Coronary Bypass/CABG, Joint Replacement, Orthopedic Surgery Additional Past Surgical History / Comment(s): left carpel tunnel, CARPAL TUNNEL RIGHT x 2. CABG 1987 X2. RUPESH SCOPES KNEES. Rupesh Hip Replacement, Nicholas F undoplicaton. Rt Shoulder Rotator Cuff. BACK X2. HX OF EPIDURALS FOR PAIN. Past Anesthesia/Blood Transfusion Reactions: No Reported Reaction Past Psychological History: No Psychological Hx Reported Smoking Status: Former smoker Past Alcohol Use History: None Reported Past Drug Use History: None Reported - Past Family History Daughter(s) Family Medical History: Cancer Father History Unknown: Yes Mother Family Medical History: No Reported History Medications and Allergies Home Medications Medication Instructions Recorded Confirmed Type Metoprolol Tartrate [Lopressor] 25 mg PO BID 08/06/13 03/19/20 History Rivaroxaban [Xarelto] 20 mg PO DAILY 08/06/13 03/19/20 History Furosemide 40 mg PO BID 08/09/13 03/19/20 History Fluticasone/Salmeterol [Advair 1 puff INHALATION RT-BID 08/18/14 03/19/20 History 250-50 Diskus] Tiotropium 18 Mcg/Puff [Spiriva] 1 cap INHALATION RT-DAILY 08/18/14 03/19/20 History Atorvastatin [Lipitor] 40 mg PO HS 01/20/18 03/19/20 History Multivitamin [Men's Multi-Vitamin] 1 tab PO DAILY 01/20/18 03/19/20 History Albuterol Sulfate [Ventolin HFA] 2 puff INHALATION RT-QID PRN 11/22/19 03/19/20 History Ipratropium-Albuterol Nebulize 3 ml INHALATION RT-QID 11/22/19 03/19/20 History [Duoneb 0.5 mg-3 mg/3 ml Soln] Acetaminophen Tab [Tylenol] 650 mg PO Q6HR PRN tab 01/11/20 03/19/20 Rx Digoxin [Lanoxin] 125 mcg PO DAILY tab 01/11/20 03/19/20 Rx Gabapentin 600 mg PO BID #6 tab 01/11/20 03/19/20 Rx oxyCODONE HCL/ACETAMINOPHEN 1 tab PO TID PRN #9 tab 01/11/20 03/19/20 Rx [Percocet 10-325 mg] Ascorbic Acid [Vitamin C] 1,000 mg PO DAILY 03/19/20 03/19/20 History Calcium Carbonate [Calcium] 600 mg PO DAILY 03/19/20 03/19/20 History Cholecalciferol [Vitamin D3 (25 1,000 unit PO DAILY 03/19/20 03/19/20 History Mcg = 1000 Iu)] Cyanocobalamin (Vitamin B-12) 1,000 mcg PO DAILY 03/19/20 03/19/20 History [Vitamin B-12] Nitrofurantoin Monohyd/M-Cryst 100 mg PO BID 03/19/20 03/19/20 History [Macrobid] Allergies Allergy/AdvReac Type Severity Reaction Status Date / Time No Known Allergies Allergy Verified 03/19/20 14:36 Surgical - Exam Vital Signs Temp Pulse Resp BP Pulse Ox 101.5 F H 125 H 18 151/79 96 03/19/20 13:25 03/19/20 13:25 03/19/20 13:25 03/19/20 13:25 03/19/20 13:25 - General well developed, well nourished, no distress, no pain - Eyes normal ocular movement - ENT decreased hearing - Neck trachea midline - Respiratory Currently on 2LPM NC with oxygen saturation 98% normal expansion, normal respiratory effort, clear to auscultation - Cardiovascular Irregular rate and rhythm, afib on telemetry. No edema present Heart Sounds: normal: S1, S2 - Abdomen Abdomen: soft, non tender, bowel sounds - Genitourinary Bowman present draining clear yellow urine - Rectum deferred - Integumentary Skin is warm and dry. Stage II to sacral area. Right ankle with dime sized wound, no drainage present currently. Left heel with large fluid filled blister - Neurologic normal coordination, normal sensation - Musculoskeletal normal posture - Psychiatric oriented to time, oriented to person, oriented to place, speech is normal, memory intact Results - Labs 03/22/20 05:55 03/22/20 05:55 Abnormal Lab Results - Last 24 Hours (Table) 03/21/20 03/22/20 03/22/20 Range/Units 05:40 05:55 05:55 RBC 3.18 L (4.30-5.90) m/uL Hgb 8.5 L (13.0-17.5) gm/dL Hct 28.0 L (39.0-53.0) % MCHC 30.4 L (31.0-37.0) g/dL RDW 15.7 H (11.5-15.5) % Carbon Dioxide 34.2 H (21.6-31.8) mmol/L Anion Gap 1.80 L 12.30 H (4.00-12.00) mmol/L BUN/Creatinine Ratio 38.57 H 33.75 H (12.00-20.00) Ratio Glucose 112 H (70-110) mg/dL Calcium 8.0 L 8.2 L (8.7-10.3) mg/dL Microbiology - Last 24 Hours (Table) 03/20/20 04:21 Gram Stain - Final Sputum Sputum Culture - Final Pseudomonas aeruginosa 03/19/20 15:59 Anaerobic Culture - Preliminary Foot - Right 03/19/20 15:59 Gram Stain - Final Foot - Right Wound Culture - Final Methicillin resist S. aureus Pseudomonas aeruginosa 03/19/20 14:46 Blood Culture - Preliminary Blood No Growth after 48 hours 03/19/20 14:39 Blood Culture - Preliminary Blood No Growth after 48 hours Diabetes panel 03/21/20 03/22/20 Range/Units 05:40 05:55 Sodium 144 143 (135-145) mmol/L Potassium 4.3 3.7 (3.5-5.5) mmol/L Chloride 108 106 (96-109) mmol/L Carbon Dioxide 34.2 H 24.7 (21.6-31.8) mmol/L BUN 27.0 27.0 (9.0-27.0) mg/dL Creatinine 0.7 0.8 (0.6-1.5) mg/dL Glucose 108 112 H (70-110) mg/dL Calcium 8.0 L 8.2 L (8.7-10.3) mg/dL Calcium panel 03/21/20 03/22/20 Range/Units 05:40 05:55 Calcium 8.0 L 8.2 L (8.7-10.3) mg/dL Pituitary panel 03/21/20 03/22/20 Range/Units 05:40 05:55 Sodium 144 143 (135-145) mmol/L Potassium 4.3 3.7 (3.5-5.5) mmol/L Chloride 108 106 (96-109) mmol/L Carbon Dioxide 34.2 H 24.7 (21.6-31.8) mmol/L BUN 27.0 27.0 (9.0-27.0) mg/dL Creatinine 0.7 0.8 (0.6-1.5) mg/dL Glucose 108 112 H (70-110) mg/dL Calcium 8.0 L 8.2 L (8.7-10.3) mg/dL Adrenal panel 03/21/20 03/22/20 Range/Units 05:40 05:55 Sodium 144 143 (135-145) mmol/L Potassium 4.3 3.7 (3.5-5.5) mmol/L Chloride 108 106 (96-109) mmol/L Carbon Dioxide 34.2 H 24.7 (21.6-31.8) mmol/L BUN 27.0 27.0 (9.0-27.0) mg/dL Creatinine 0.7 0.8 (0.6-1.5) mg/dL Glucose 108 112 H (70-110) mg/dL Calcium 8.0 L 8.2 L (8.7-10.3) mg/dL Assessment and Plan Assessment: 1. Stage II to sacrum, chronic wound to right ankle, fluid filled blister to left heel; MRSA and pseudomonas positive from right ankle wound 03/19/20 2. Sepsis, pseudomonas pneumonia 3. Chronic atrial fibrillation, controlled, on Xarelto for anticoagulation 4. COPD 5. Arthritis Plan: The patient was seen and examined yesterday with Dr. Yin. Chart/diagnostics reviewed. Our recommendation for wound care is to apply Santyl daily to sacral ulcer and cover with optifoam, apply Santyl daily to right ankle and cover with gauze, offload left heel and observe. Continue antibiotics per infectious disease recommendations. Patient may follow up in the wound care center upon discharge, although he has indicated he would like to continue with Dr. Allen who he has seen in the past for his wound care management. Medical management of other comorbidities per primary care. Thank you for this consult. Please call us with any further questions. Time with Patient: Greater than 30
--- NOTE | 2020-03-22 13:05 | P.CRDCN ---
History of Present Illness Consult date: 03/22/20 History of present illness: CHIEF COMPLAINT: A. fib HISTORY OF PRESENT ILLNESS: This is a 80-year-old male with a past medical history significant for atrial fibrillation, COPD, and coronary artery disease with previous CABG. Patient follows in the office with Dr. Landeros. We have been asked to see the patient in consultation for atrial fib and possible 6 beat run of ventricular tachycardia. Patient examined at the bedside. He reports a mild chest discomfort that he has had for several months. He reports he continues to have a productive cough. He denies shortness of breath. DIAGNOSTICS: EKG reveals atrial fibrillation Chest xray no suspicious focal consolidation to suggest aspiration. There are a few peripheral increased lung markings which are nonspecific. Subsegmental atelectasis and atypical pneumonia could be considered. Laboratory data: WBC 6.1. Hemoglobin 8.5. Platelet count 243. Sodium 143. Potassium 3.7. BUN 27. Creatinine 0.8. Current home cardiac medications include Xarelto 29 g daily, metoprolol 25 mg twice a day, digoxin 125mcg daily, Lasix 40 mg BID, and Lipitor 40 mg daily REVIEW OF SYSTEMS: At the time of my exam: CONSTITUTIONAL: Denies fever or chills. HEENT: Denies blurred vision, vision changes, or eye pain. Denies hemoptysis CARDIOVASCULAR: Denies chest pain, orthopnea, PND or palpitations RESPIRATORY: No shortness of breath. GASTROINTESTINAL: Denies abdominal pain. Denies nausea or vomiting. HEMATOLOGIC: Denies bleeding disorders. GENITOURINARY: Denies any blood in urine. SKIN: Denies pruitis. Denies rash. PHYSICAL EXAM: VITAL SIGNS: Reviewed. GENERAL: Well-developed in no acute distress. HEENT: Head is normocephalic. Pupils are equal, round. Sclerae anicteric. Mucous membranes of the mouth are moist. Neck supple. No JVD or thyromegaly LUNGS: Respirations even and unlabored. Lungs diminished. HEART: Irregular rate and rhythm. S1 and S2 heard. ABDOMEN: Soft. Nondistended. Nontender. EXTREMITIES: Normal range of motion. No clubbing or cyanosis. Peripheral pulses intact. No lower extremity edema NEUROLOGIC: Awake and alert. Oriented x 3. ASSESSMENT: Stage II sacral pressure ulcer Chronic wound to right ankle, culture positive for MRSA and Pseudomonas Pneumonia, culture positive for Pseudomonas Sepsis Chronic atrial fibrillation, on long-term anticoagulation with Xarelto Coronary artery disease with history of CABG 2 vessels COPD PLAN: Telemetry reviewed by Dr. Hernandez revealing atrial fibrillation with aberrancy- No evidence of venticular tachycardia. Continue anticoagulation with Xarelto Continue additional cardiac medications Patient is currently stable from a cardiac standpoint. We will follow on an as- needed basis. Please call with questions or concerns. Nurse practitioner note has been reviewed by physician. Signing provider agrees with the documented findings, assessment, and plan of care. Past Medical History Past Medical History: Atrial Fibrillation, Heart Failure, COPD, Hypertension, Myocardial Infarction (ID), Musculoskeletal Disorder, Osteoarthritis (OA), Pneumonia, Thyroid Disorder Additional Past Medical History / Comment(s): left breast mass HX OF COLON POLYPS. HX RIGHT BREAST MASS. O2 AT 2L NC @HS AND PRN. Hx Aspiration Pneumonia R/T "FLAPPER." HX OF THYROID PROBLEM - NO TX NOW. CHRONIC BACK PAIN, RUPESH LEG NT. RT FOOT/ANKLE EDEMA, WEARS TEDS. RUPESH CTS Last Myocardial Infarction Date:: 1987 History of Any Multi-Drug Resistant Organisms: MRSA Date of last positivie culture/infection: MRSA 03/19/20, 03/2012-01/2013 ankle sore MDRO Source:: FOOT Past Surgical History: Back Surgery, Coronary Bypass/CABG, Joint Replacement, Orthopedic Surgery Additional Past Surgical History / Comment(s): left carpel tunnel, CARPAL TUNNEL RIGHT x 2. CABG 1987 X2. RUPESH SCOPES KNEES. Rupesh Hip Replacement, Nicholas Fundoplicaton. Rt Shoulder Rotator Cuff. BACK X2. HX OF EPIDURALS FOR PAIN. Past Anesthesia/Blood Transfusion Reactions: No Reported Reaction Past Psychological History: No Psychological Hx Reported Smoking Status: Former smoker Past Alcohol Use History: None Reported Past Drug Use History: None Reported - Past Family History Daughter(s) Family Medical History: Cancer Father History Unknown: Yes Mother Family Medical History: No Reported History Medications and Allergies Home Medications Medication Instructions Recorded Confirmed Type Metoprolol Tartrate [Lopressor] 25 mg PO BID 08/06/13 03/19/20 History Rivaroxaban [Xarelto] 20 mg PO DAILY 08/06/13 03/19/20 History Furosemide 40 mg PO BID 08/09/13 03/19/20 History Fluticasone/Salmeterol [Advair 1 puff INHALATION RT-BID 08/18/14 03/19/20 History 250-50 Diskus] Tiotropium 18 Mcg/Puff [Spiriva] 1 cap INHALATION RT-DAILY 08/18/14 03/19/20 History Atorvastatin [Lipitor] 40 mg PO HS 01/20/18 03/19/20 History Multivitamin [Men's Multi-Vitamin] 1 tab PO DAILY 01/20/18 03/19/20 History Albuterol Sulfate [Ventolin HFA] 2 puff INHALATION RT-QID PRN 11/22/19 03/19/20 History Ipratropium-Albuterol Nebulize 3 ml INHALATION RT-QID 11/22/19 03/19/20 History [Duoneb 0.5 mg-3 mg/3 ml Soln] Acetaminophen Tab [Tylenol] 650 mg PO Q6HR PRN tab 01/11/20 03/19/20 Rx Digoxin [Lanoxin] 125 mcg PO DAILY tab 01/11/20 03/19/20 Rx Gabapentin 600 mg PO BID #6 tab 01/11/20 03/19/20 Rx oxyCODONE HCL/ACETAMINOPHEN 1 tab PO TID PRN #9 tab 01/11/20 03/19/20 Rx [Percocet 10-325 mg] Ascorbic Acid [Vitamin C] 1,000 mg PO DAILY 03/19/20 03/19/20 History Calcium Carbonate [Calcium] 600 mg PO DAILY 03/19/20 03/19/20 History Cholecalciferol [Vitamin D3 (25 1,000 unit PO DAILY 03/19/20 03/19/20 History Mcg = 1000 Iu)] Cyanocobalamin (Vitamin B-12) 1,000 mcg PO DAILY 03/19/20 03/19/20 History [Vitamin B-12] Nitrofurantoin Monohyd/M-Cryst 100 mg PO BID 03/19/20 03/19/20 History [Macrobid] Allergies Allergy/AdvReac Type Severity Reaction Status Date / Time No Known Allergies Allergy Verified 03/19/20 14:36 Physical Exam Vitals: Vital Signs Temp Pulse Pulse Resp BP Pulse Ox 03/22/20 12:05 72 03/22/20 11:57 68 03/22/20 08:44 70 03/22/20 08:34 72 03/22/20 05:39 97.8 F 62 20 145/77 98 03/22/20 01:35 97.7 F 62 20 129/68 100 03/22/20 01:30 97.7 F 62 20 03/21/20 21:16 68 03/21/20 21:00 98.4 F 89 20 96/53 97 03/21/20 20:55 68 98 03/21/20 19:45 22 03/21/20 14:00 98.4 F 84 22 93/47 93 L Intake and Output 03/21/20 03/22/20 03/22/20 22:59 06:59 14:59 Intake Total 1700 100 Output Total 1700 2000 Balance 0 -1900 Intake: Intake, IV Titration 1500 Amount Cefepime 2 gm In Sodium 100 Chloride 0.9% 100 ml @ 25 mls/hr IVPB Q12HR [facility] Rx #:[id number] Sodium Chloride 0.9% 1, 900 000 ml @ 75 mls/hr IV . [id number] [facility] Rx#:[id number] Vancomycin 1,250 mg In 250 Sodium Chloride 0.9% 250 ml @ 125 mls/hr IVPB Q12HR [facility] Rx#:[id number] Vancomycin 1,500 mg In 250 Sodium Chloride 0.9% 250 ml @ 125 mls/hr IVPB ONCE ONE Rx#:[id number] Oral 200 100 Output: Urine 1700 2000 Uretheral (Bowman) 1000 Other: Voiding Method Indwelling Catheter Indwelling Catheter Results 03/22/20 05:55 03/22/20 05:55 CBC 03/22/20 Range/Units 05:55 WBC 6.1 (3.8-10.6) k/uL RBC 3.18 L (4.30-5.90) m/uL Hgb 8.5 L (13.0-17.5) gm/dL Hct 28.0 L (39.0-53.0) % Plt Count 243 (150-450) k/uL Comprehensive Metabolic Panel 03/22/20 Range/Units 05:55 Sodium 143 (135-145) mmol/L Potassium 3.7 (3.5-5.5) mmol/L Chloride 106 (96-109) mmol/L Carbon Dioxide 24.7 (21.6-31.8) mmol/L BUN 27.0 (9.0-27.0) mg/dL Creatinine 0.8 (0.6-1.5) mg/dL Glucose 112 H (70-110) mg/dL Calcium 8.2 L (8.7-10.3) mg/dL Current Medications Generic Name Dose Route Start Last Admin Trade Name Freq PRN Reason Stop Dose Admin Acetaminophen 1,000 mg 03/19/20 13:42 03/21/20 20:03 Acetaminophen Tab 500 Mg Tab PO 1,000 mg Q6HR PRN Administration Fever>101 Albuterol Sulfate 2.5 mg 03/21/20 14:18 Albuterol Nebulized 2.5 Mg/3 Ml INHALATION RT-QID PRN Shortness Of Breath Albuterol/Ipratropium 3 ml 03/21/20 16:00 03/22/20 11:54 Ipratropium-Albuterol 3 Ml Neb INHALATION 3 ml RT-QID JULISSA Administration Ascorbic Acid 1,000 mg 03/20/20 09:00 03/22/20 08:30 Ascorbic Acid 500 Mg Tab PO 1,000 mg DAILY JULISSA Administration Atorvastatin Calcium 40 mg 03/19/20 21:00 03/21/20 20:04 Atorvastatin 40 Mg Tab PO 40 mg HS JULISSA Administration Budesonide/Formoterol Fumarate 2 puff 03/20/20 08:00 03/22/20 08:32 Symbicort 80-4.5 Mcg Inhaler INHALATION 2 puff RT-BID JULISSA Administration Calcium Carbonate/Glycine 500 mg 03/22/20 09:00 03/22/20 08:30 Calcium Carbonate 500 Mg Chewable PO 500 mg DAILY JULISSA Administration Cholecalciferol 1,000 unit 03/22/20 09:00 03/22/20 08:31 Cholecalciferol 1,000 Unit Tab PO 1,000 unit DAILY JULISSA Administration Collagenase 1 applic 03/21/20 14:30 03/22/20 08:46 Collagenase 250 Unit/Gm Ointment 30 Gm Tube TOPICAL 1 applic DAILY JULISSA Administration Cyanocobalamin 1,000 mcg 03/22/20 09:00 03/22/20 08:31 Cyanocobalamin 500 Mcg Tab PO 1,000 mcg DAILY JULISSA Administration Famotidine 20 mg 03/20/20 21:00 03/22/20 08:30 Famotidine 20 Mg Tab PO 20 mg Q12HR JULISSA Administration Furosemide 40 mg 03/19/20 21:00 03/22/20 08:30 Furosemide 40 Mg Tab PO 40 mg BID JULISSA Administration Gabapentin 600 mg 03/19/20 21:00 03/22/20 08:30 Gabapentin 300 Mg Cap PO 600 mg BID JULISSA Administration Sodium Chloride 1,000 mls @ 75 mls/hr 03/19/20 15:15 03/22/20 04:40 Saline 0.9% IV Not Given .[id number] JULISSA Cefepime HCl 2 gm/ Sodium 100 mls @ 25 mls/hr 03/21/20 09:00 03/22/20 08:34 Chloride IVPB 25 mls/hr Q12HR JULISSA Administration Vancomycin HCl 1,250 mg/ 250 mls @ 125 mls/hr 03/21/20 09:00 03/22/20 08:34 Sodium Chloride IVPB 125 mls/hr Q12HR JULISSA Administration Metoprolol Tartrate 25 mg 03/19/20 21:00 03/22/20 08:30 Metoprolol Tartrate 25 Mg Tab PO 25 mg BID JULISSA Administration Miscellaneous Information 1 each 03/19/20 15:11 Pneumonia Protocol Utilized 1 Each Misc PO ONCE PRN Per Protocol Miscellaneous Information 0 each 03/23/20 08:00 Vancomycin Trough Due 1 Each Misc MISCELLANE 03/23/20 08:01 DIRECTED ONE Multivitamins 1 each 03/22/20 09:00 03/22/20 08:30 Multivitamins, Thera 1 Each Tab PO 1 each DAILY JULISSA Administration Oxycodone/Acetaminophen 1 each 03/19/20 17:44 03/22/20 09:02 Oxycodone-Apap 10-325mg 1 Each Tab PO 1 each Q6H PRN Administration Pain Rivaroxaban 20 mg 03/20/20 09:00 03/22/20 08:31 Rivaroxaban 20 Mg Tab PO 20 mg DAILY JULISSA Administration Intake and Output 03/21/20 03/22/20 03/22/20 22:59 06:59 14:59 Intake Total 1700 100 Output Total 1700 2000 Balance 0 -1900 Intake: Intake, IV Titration 1500 Amount Cefepime 2 gm In Sodium 100 Chloride 0.9% 100 ml @ 25 mls/hr IVPB Q12HR [facility] Rx #:[id number] Sodium Chloride 0.9% 1, 900 000 ml @ 75 mls/hr IV . [id number] [facility] Rx#:[id number] Vancomycin 1,250 mg In 250 Sodium Chloride 0.9% 250 ml @ 125 mls/hr IVPB Q12HR [facility] Rx#:[id number] Vancomycin 1,500 mg In 250 Sodium Chloride 0.9% 250 ml @ 125 mls/hr IVPB ONCE ONE Rx#:[id number] Oral 200 100 Output: Urine 1700 2000 Uretheral (Bowman) 1000 Other: Voiding Method Indwelling Catheter Indwelling Catheter 03/22/20 05:55 03/22/20 05:55
--- NOTE | 2020-03-22 16:00 | CT ---
CT CHEST FOR PULMONARY EMBOLISM. EXAMINATION TYPE: CT angio chest DATE OF EXAM: 03/22/2020 INDICATION: History of COPD. CT DLP: 418.4 mGycm, Automated exposure control for dose reduction was used. CONTRAST: Patient injected with 100 mL of Isovue 370. COMPARISON: TECHNIQUE: CT of the chest is performed on a spiral scan at 2 mm thick sections. Study is performed with intravenous contrast timed for evaluation for pulmonary embolism. This will limit additional po rtions of the evaluation. 3-D MIP images reconstructed by the technologist are reviewed on the compu ter in the coronal and sagittal planes. FINDINGS: Thyroid is markedly enlarged and extends in the superior mediastinum. No persistent filling defects are evident to suggest an acute pulmonary embolism. No mediastinal or hilar adenopathy enlarged by CT criteria is evident. The ascending aorta diameter at the level of the main pulmonary artery is 3.7 cm. The main pulmonary artery diameter at the bifur cation is 3.7 cm. Small bilateral pleural effusions are present previous may be loculated on the left. Some minimal streak opacities in the posterior right apex. There is a 1.0 cm nodule within the superior segment right lower lobe. Oral 1 image 65 a stellate are a adjacent to the pleural margin measuring 0.9 cm cyst in the superior segment left lower lobe at the level of the aortic arch. Series [address] section through the upper abdomen are unremarkable. Note is made of a small hiatal hernia. IMPRESSIONS: 1. Lung nodules discussed above. The largest measures 1.0 cm superior segment right lower lobe 2. No pulmonary embolism. 3. Thyromegaly
--- NOTE | 2020-03-22 18:38 | PN ---
PROGRESS NOTE DATE OF SERVICE: 03/22/2020 This 80-year-old gentleman who was admitted with possible Gram-negative pneumonia and right ankle wound is being closely monitored. Patient is on empiric antibiotics. Pseudomonas was grown from the cultures. Chest CTA was ordered which showed lung nodules, the largest 1 cm, superior segment, right lower lobe. Otherwise, no pulmonary embolism. Thyromegaly is also noted. Bone scan is pending at this time. The patient is on broad-spectrum IV antibiotics. Ultrasound of the legs was showing no evidence of DVT5. Past medical history reviewed. REVIEW OF SYSTEMS: CARDIOVASCULAR SYSTEM: No angina, palpitations. RESPIRATORY SYSTEM: As mentioned earlier. GI: As mentioned earlier. : No dysuria or retention. NERVOUS SYSTEM: No numbness, weakness. CURRENT MEDICATIONS: Reviewed. They include Tylenol, Ventolin, DuoNeb, Lipitor, cefepime 2 grams. Doses and other medications are reviewed. PHYSICAL EXAMINATION: Patient alert and oriented x3. Pulse 70, blood pressure 112/68, respiration 20, temperature 99 degrees, pulse ox 93% on 2 L. HEENT: Conjunctivae normal. NECK: No jugular venous distention. CARDIOVASCULAR SYSTEM: S1, S2 muffled. RESPIRATORY SYSTEM: Breath sounds diminished at the bases. A few scattered rhonchi and crackles. ABDOMEN: Soft, non-tender. LEGS: Right ankle ulcer present. NERVOUS SYSTEM: No focal deficit. LABS: WBC 6.1, hemoglobin is 8.5. D-dimer is 2.31. COVID-19 is negative. ASSESSMENT: 1. Right foot ulcer with possible sepsis secondary to MRSA as well as Pseudomonas aeruginosa. 2. Pseudomonas aeruginosa pneumonia, possibly Gram-negative pneumonia. 3. Left wrist, elbow and shoulder arthritis, possibly pseudogout; also bilateral interstitial pneumonia versus fibrosis. 4. Left upper chest pain secondary to left upper extremity pain. 5. Lung nodules. 6. Elevated lactic acid, possibly secondary to sepsis, present on admission. 7. History of atrial fibrillation, chronic. 8. History of congestive heart failure; ejection fraction unknown. 9. History of chronic obstructive pulmonary disease. 10.Hypertension. 11.History of myocardial infarction. 12.History of degenerative joint disease. 13.History of pneumonia. 14.History of hypothyroidism. 15.History of left breast mass. 16.History of colonic polyp. 17.History of back surgery. 18.History of coronary artery disease, coronary artery bypass grafting. 19.Remote history of nicotine dependence. 20.FULL CODE. RECOMMENDATIONS AND DISCUSSION: I recommend to continue current medications, continue with the monitoring, symptomatic treatment. Otherwise at this time continue the broad-spectrum IV antibiotics. I would also recommend a bone scan. Overall prognosis is extremely guarded because of multiple complex medical issues. Further recommendations to follow. COVID-19 has been negative. Increase ambulation. Symptomatic treatment for the pain. Further recommendations to follow. MMODL / IJN: [id number] /
[2020-03-22] MEDS: ATORVASTATIN 40 MG TAB PO SCH (20:40)
--- NOTE | 2020-03-22 23:26 | PN ---
PROGRESS NOTE DATE OF SERVICE: 03/22/2020 REASON FOR FOLLOWUP: Pseudomonas pneumonia. INTERVAL HISTORY: Patient is currently afebrile. The patient is feeling better. He is breathing more comfortably. The patient denies having any chest pain or shortness of breath. The patient's cough has decreased in intensity. No nausea, no vomiting. No abdominal pain or diarrhea. EXAMINATION: General description is an elderly male lying in bed in no distress. Respiratory system: Unlabored breathing with decreased intensity in breath sounds in the base, with no wheeze. Heart S1, S2. Regular rate and rhythm. ABDOMEN: Soft, no tenderness. DIAGNOSTIC IMPRESSION/PLAN: 1. Patient with Pseudomonas aeruginosa pneumonia. This patient is currently cover with cefepime to continue. 2. Patient with right lateral ankle small wound with no evidence of any cellulitis which grew Pseudomonas and MRSA, clinically doubt any significant infection. Discontinue vancomycin to decrease risk of nephrotoxicity. MMODL / IJN: [id number] / [email or web address]
[2020-03-23] MEDS ORDERED: VANCOMYCIN TROUGH DUE 1 EACH MISC MISCELLANE ONE (08:00)
[2020-03-23] MEDS: SYMBICORT 80-4.5 MCG INHALER INHALATION SCH ×2 (08:15→20:06)
[2020-03-23] MEDS: IPRATROPIUM-ALBUTEROL 3 ML NEB INHALATION SCH ×4 (08:15→20:06)
[2020-03-23] MEDS: CALCIUM CARBONATE 500 MG CHEWABLE PO SCH (09:38)
[2020-03-23] MEDS: CYANOCOBALAMIN 500 MCG TAB PO SCH (09:39)
[2020-03-23] MEDS: FUROSEMIDE 40 MG TAB PO SCH ×2 (09:39→21:02)
[2020-03-23] MEDS: CHOLECALCIFEROL 1,000 UNIT TAB PO SCH (09:39)
[2020-03-23] MEDS: MULTIVITAMINS, THERA 1 EACH TAB PO SCH (09:39)
[2020-03-23] MEDS: CEFEPIME 2 GM in SODIUM CHLORIDE 0.9% 100 ML IVPB SCH ×2 (09:39→21:02)
[2020-03-23] MEDS: SODIUM CHLORIDE 0.9% 1,000 ML IV SCH ×2 (09:39→22:06)
[2020-03-23] MEDS: RIVAROXABAN 20 MG TAB PO SCH (09:39)
[2020-03-23] MEDS: METOPROLOL TARTRATE 25 MG TAB PO SCH ×2 (09:39→21:02)
[2020-03-23] MEDS: ASCORBIC ACID 500 MG TAB PO SCH (09:39)
[2020-03-23] MEDS: GABAPENTIN 300 MG CAP PO SCH ×2 (09:39→21:02)
[2020-03-23] MEDS: FAMOTIDINE 20 MG TAB PO SCH ×2 (09:39→21:02)
[2020-03-23] MEDS: COLLAGENASE 250 UNIT/GM OINTMENT 30 GM TUBE TOPICAL SCH (15:00)
[2020-03-23] MEDS ORDERED: IOPAMIDOL CONTRAST (ORAL USE) VIAL PO PRN (15:59)
[2020-03-23 16:02] LABS: African American GFR (CKD) 101.9 (60.0-200.0); Non-African American GFR(CKD) 87.9 (60.0-200.0)
[2020-03-23] MEDS: IOPAMIDOL CONTRAST (ORAL USE) VIAL PO PRN ×2 (16:23→17:27)
--- NOTE | 2020-03-23 16:32 | PN ---
PROGRESS NOTE DATE OF SERVICE: 03/23/2020 This 80-year-old gentleman who was admitted with Pseudomonas pneumonia is on cefepime. The patient also had a decubitus ulcer as well as ankle cellulitis that showed Pseudomonas and MRSA. The patient has received a course of vancomycin, which has been discontinued by Dr. Fontenot at this time. Patient also has multiple other abnormalities. The patient is being closely monitored. The patient also has been in [facility]. Her daughter Nuris had several questions, which I answered over the phone. Past medical history reviewed. REVIEW OF SYSTEMS: CARDIOVASCULAR SYSTEM: No angina, palpitations. RESPIRATORY SYSTEM: As mentioned earlier. GI: As mentioned earlier. : No dysuria or retention. NERVOUS SYSTEM: No numbness, weakness. CURRENT MEDICATIONS: Reviewed. They include Tylenol, Ventolin, vitamin C, Lipitor, Symbicort. Doses are reviewed. PHYSICAL EXAMINATION: Patient is alert, oriented x3. Pulse 81, blood pressure 104/59, respiration 16, temperature 99.4, pulse ox 98% on 2 L. HEENT: Conjunctivae normal. NECK: No jugular venous distention. CARDIOVASCULAR SYSTEM: S1, S2 muffled. RESPIRATORY SYSTEM: Breath sounds diminished at the bases. A few rhonchi. No crackles. ABDOMEN: Soft, non-tender. LEGS: No edema. No swelling. Right ankle ulcer present. NERVOUS SYSTEM: No focal deficit. LABS/IMAGING: WBC 6.9, hemoglobin 8.5. D-dimer is 2.31. CT scan of the chest, reviewed personally by me, showed a lung nodule. ASSESSMENT: 1. Pseudomonas aeruginosa pneumonia, possibly Gram-negative pneumonia, with sepsis, present on admission. 2. Right foot ulcer, possibly methicillin-resistant Staphylococcus aeruginosa as well as Pseudomonas with sepsis. 3. Left wrist, elbow and shoulder arthritis, possibly pseudogout. 4. Possible bilateral interstitial pneumonia versus fibrosis. 5. Left upper chest pain secondary to left upper extremity pain. 6. History of lung nodules. 7. Elevated lactic acid, possibly secondary to sepsis, present on admission. 8. History of atrial fibrillation, chronic. 9. History of congestive heart failure; ejection fraction unknown. 10.History of chronic obstructive pulmonary disease. 11.Gait dysfunction. 12.Hypertension. 13.History of myocardial infarction. 14.History of degenerative joint disease. 15.History of pneumonia. 16.History of hypothyroidism. 17.History of left breast mass. 18.History of colonic polyp. 19.History of back surgery. 20.History of coronary artery disease, coronary artery bypass grafting. 21.Remote history of nicotine dependence. 22.FULL CODE. RECOMMENDATIONS AND DISCUSSION: I recommend to continue current medications, continue with the monitoring, symptomatic treatment. Continue with IV antibiotics. Patient is on cefepime at this time. Otherwise, his daughter was concerned about recurrent infections. I would follow closely with Dr. Fontenot. Will also discuss with the patient's daughter about further plans, including outpatient followup. I would also recommend pulmonary consultation with Dr. Herrera regarding the elevated D-dimer and pulmonary nodules. Will continue to monitor. Prognosis guarded because of multiple complex medical issues. Further recommendations to follow. I would also recommend CT scan of the abdomen and pelvis to complete the workup. The COVID-19 was negative twice. The daughter was concerned about that as well. I would also recommend close followup with Dr. Abraham in the outpatient setting. MMODL / IJN: [id number] /
[2020-03-23] MEDS: oxyCODONE-APAP 10-325MG 1 EACH TAB PO PRN (19:54)
--- NOTE | 2020-03-23 20:19 | CT ---
EXAMINATION TYPE: CT abdomen pelvis wo con DATE OF EXAM: 03/23/2020 COMPARISON: None HISTORY: R/O GI malignancy Abdominal pain CT DLP: 953.1 mGycm Automated exposure control for dose reduction was used. Images were obtained from the diaphragm to the floor the pelvis with oral contrast only. There are mild bilateral pleural effusions. There is no pericardial effusion. There is hiatal hernia. There is some increased soft tissue density at the gastric fundus near the gastroesophageal junction . This measures approximate 4 cm. The liver shows no focal defect. Gallbladder appears normal. The sp aristeo is intact. There is no evidence of pancreatic mass. There is no adrenal mass. Kidneys have normal size. There is no hydronephrosis. Ureters are not dilat ed. Abdominal aorta is atheromatous. There is no retroperitoneal adenopathy. There is bilateral hip p rosthesis. There is normal opacification of the small bowel. I see no small bowel wall thickening. There are no dilated loops. Appendix is not seen. There is no sign of thickened appendix. There is extensive calci fication in the iliac arteries. There is no inguinal hernia. Bladder is obscured somewhat by the meta l artifact from the hip surgery. There is no evidence of pelvic mass. There is multilevel lumbar spondylotic changes with spur formation and disc space narrowing and vacuu m disc. There is no compression fracture. IMPRESSION: Possible mass at the gastroesophageal junction which is a change compared to the old chest CT scan of August 15, 2013. Endoscopy recommended for further evaluation. Bilateral pleural effusions. Hiatal hernia. Pleural fluid unchanged compared to yesterday. Cardiomega ly. Extensive atherosclerotic vascular disease.
[2020-03-23] MEDS: ATORVASTATIN 40 MG TAB PO SCH (21:02)
--- NOTE | 2020-03-23 22:31 | PN ---
PROGRESS NOTE DATE OF SERVICE: 03/23/2020 REASON FOR FOLLOWUP: 1. Pseudomonas pneumonia. 2. Patient with right lateral ankle wound with no cellulitis. 3. Stage II sacral pressure ulcer. INTERVAL HISTORY: The patient is currently afebrile. The patient is overall feeling better. He is breathing more comfortably. Patient denies having any chest pain. He did have a cough, less productive. No nausea, no vomiting, no abdominal pain. Denies any worsening pain to the right ankle or the sacral area. PHYSICAL EXAMINATION: Blood pressure 104/53 with a pulse of 93, temperature 98.6. He is 97% on 2 L nasal cannula. General description is an elderly male lying in bed in no distress. RESPIRATORY SYSTEM: Unlabored breathing with decreased intensity of breath sounds. No wheeze. HEART: S1, S2. Regular rate and rhythm. ABDOMEN: Soft. No tenderness. LABS: Hemoglobin 8.5, white count 6.1, creatinine 0.7. Vancomycin trough is 19.9. DIAGNOSTIC IMPRESSION AND PLAN: 1. Patient with pseudomonas pneumonia, for which the patient is currently covered with cefepime 2 grams q.12. To continue with a plan to finish therapy with oral Cipro. 2. Patient with right lateral ankle wound which is superficial, not tracking down to the bone, and no evidence of any cellulitis clinically. Local culture did show MRSA, Pseudomonas, more likely colonizer, and no need for any vancomycin. 3. Patient with sacral wound with no evidence of cellulitis. Local care to continue with Santyl as per the wound care team. MMODL / IJN: [id number] /
[2020-03-24 06:44] LABS: Basophils % (A) 0 %; Eosinophils # (A) 0.3 k/uL (0-0.7); Eosinophils % (A) 4 %; HCT 25.7 % (39.0-53.0); HGB 8.1 gm/dL (13.0-17.5); Hypochromasia Moderate; Lymphocytes # (A) 1.3 k/uL (1.0-4.8); Lymphocytes % (A) 20 %; MCH 27.2 pg (25.0-35.0); MCHC 31.7 g/dL (31.0-37.0); MCV 85.8 fL (80.0-100.0); Mean Platelet Volume 6.7; Monocytes # (A) 0.5 k/uL (0-1.0); Monocytes % (A) 8 %; Neutrophils # (A) 4.1 k/uL (1.3-7.7); Neutrophils % (A) 65 %; Platelet Count 238 k/uL (150-450); RBC 2.99 m/uL (4.30-5.90); RDW 15.6 % (11.5-15.5); WBC 6.4 k/uL (3.8-10.6)
[2020-03-24] MEDS: SYMBICORT 80-4.5 MCG INHALER INHALATION SCH ×3 (07:03→21:20)
[2020-03-24] MEDS: IPRATROPIUM-ALBUTEROL 3 ML NEB INHALATION SCH ×5 (07:03→21:20)
[2020-03-24] MEDS: CALCIUM CARBONATE 500 MG CHEWABLE PO SCH (08:52)
[2020-03-24] MEDS: GABAPENTIN 300 MG CAP PO SCH ×2 (08:52→21:20)
[2020-03-24] MEDS: CEFEPIME 2 GM in SODIUM CHLORIDE 0.9% 100 ML IVPB SCH ×2 (08:52→21:20)
[2020-03-24] MEDS: ASCORBIC ACID 500 MG TAB PO SCH (08:52)
[2020-03-24] MEDS: CHOLECALCIFEROL 1,000 UNIT TAB PO SCH (08:52)
[2020-03-24] MEDS: FAMOTIDINE 20 MG TAB PO SCH ×2 (08:52→21:19)
[2020-03-24] MEDS: FUROSEMIDE 40 MG TAB PO SCH ×2 (08:53→21:19)
[2020-03-24] MEDS: METOPROLOL TARTRATE 25 MG TAB PO SCH ×2 (08:53→21:20)
[2020-03-24] MEDS: CYANOCOBALAMIN 500 MCG TAB PO SCH (08:53)
[2020-03-24] MEDS: RIVAROXABAN 20 MG TAB PO SCH (08:53)
[2020-03-24] MEDS: MULTIVITAMINS, THERA 1 EACH TAB PO SCH (08:53)
[2020-03-24] MEDS: COLLAGENASE 250 UNIT/GM OINTMENT 30 GM TUBE TOPICAL SCH (08:53)
[2020-03-24 09:38] LABS: African American GFR (CKD) 96.4 (60.0-200.0); Anion Gap 6.6 mmol/L (4.00-12.00); BUN/Creat Ratio 32.5 Ratio (12.00-20.00); Calcium 8.3 mg/dL (8.7-10.3); Carbon Dioxide 31.4 mmol/L (21.6-31.8); Non-African American GFR(CKD) 83.2 (60.0-200.0); Potassium 3.4 mmol/L (3.5-5.5)
[2020-03-24] MEDS: oxyCODONE-APAP 10-325MG 1 EACH TAB PO PRN ×2 (09:41→15:44)
[2020-03-24] MEDS: LIDOCAINE 5% PATCH TOPICAL SCH (11:51)
[2020-03-24] MEDS: SODIUM CHLORIDE 0.9% 1,000 ML IV SCH (11:56)
--- NOTE | 2020-03-24 13:53 | CONS ---
CONSULTATION PULMONARY/CRITICAL CARE CONSULTATION: DATE OF SERVICE: 03/24/2020 REASON FOR CONSULTATION: Pulmonary nodule. The patient apparently had a CT scan dated March 22, it showed a 1 cm nodule within the superior segment of the right lower lobe. In addition, there was a stellate lesion in the superior segment of the left lower lobe that measured about 9 mm. For this reason, we were consulted. The patient was admitted to the hospital back on March 19. He apparently came in with complaints of weakness. He had generalized weakness and muscle aches. He apparently had been recently diagnosed with urinary tract infection just 2 days prior to admission. The patient apparently complained of being achy all over and having chills and fever. The patient apparently was complaining of being profoundly weak. He denied any dysuria, hematuria, or frequency. He was seen in the emergency room and admitted with a diagnosis of sepsis, and urinary tract infection. Currently, the patient is on some nasal O2. The patient states that he is on home O2 as well. The patient does see one of my partners in the office for COPD. He apparently has quite severe COPD with an FEV1 that is 35% of predicted. . CURRENT MEDICATIONS: Reviewed. He is on metoprolol, Xarelto, Lasix, Advair, Spiriva, Lipitor, multivitamins, albuterol, DuoNeb, ascorbic acid, calcium, vitamin D3, vitamin B12, and Macrobid. Other medications include Tylenol, Lanoxin, gabapentin, and Percocet. ALLERGIES: Denied. MEDICAL HISTORY: Positive for severe COPD with an FEV1 that is 35% of predicted. He also has a history of atrial fibrillation, CHF, hypertension, myocardial infarction, DJD, pneumonia, and hyperlipidemia. The patient also has a history of left breast mass, colonic polyps, right breast mass, chronic hypoxemic respiratory failure, on home O2 at 2 L, aspiration pneumonia, chronic back pain, and bilateral carpal tunnel syndrome. The patient has also had a myocardial infarction in the past as mentioned above, which was apparently back in 1987. In addition, the patient does have a prior history of MRSA infection. SURGICAL HISTORY: Includes back surgery, bypass grafting, joint replacement, left carpal tunnel surgery, right carpal tunnel surgery, bilateral knee arthroscopies, bilateral hip replacement, Nicholas fundoplication, rotator cuff surgery on the right shoulder, and history of epidural injections for pain control. SOCIAL HISTORY: Positive for previous heavy tobacco use. Denies any alcohol use or illicit drug use. FAMILY HISTORY: Positive for mother and father both of which apparently were healthy and a daughter with cancer. REVIEW OF SYSTEMS: CONSTITUTIONAL: Weakness NEUROLOGIC: Negative. HEENT: Negative. CARDIOVASCULAR: Negative. PULMONARY: Chronic shortness of breath with any activity from his underlying COPD. GI: Negative. : Negative. RHEUMATOLOGIC: Negative. IMMUNOLOGIC: Negative. ENDOCRINOLOGIC: Negative. DERMATOLOGIC: Negative. PHYSICAL EXAMINATION: VITAL SIGNS: Current vital signs are reviewed. Temperature is 98.4, heart rate 65, respiratory rate 16, blood pressure 103/54, mean 70, and 3 L saturations 98%. The patient appears in no acute distress. No respiratory distress. He is wearing nasal O2 at 3 L. HEENT: Examination is grossly unremarkable. NECK: Supple. Full range of motion. No adenopathy. Neck veins are flat. CARDIOVASCULAR: Examination reveals regular rhythm and rate. S1, S2 normal. Heart rate 65. LUNGS: Reveal diminished breath sounds throughout. No wheezes, rhonchi, or crackles. Breath sounds equal. ABDOMEN: Soft. Bowel sounds are heard. EXTREMITIES: Intact. No cyanosis, clubbing, or significant edema. SKIN: Without rash. NEUROLOGIC: Examination is nonfocal. LABS: Reviewed. White count 6.4, hemoglobin 8.1, hematocrit 25.7, platelet count 238,000. D- dimer 2.31. Sodium 144, potassium 3.4, chloride 106, CO2 31, anion gap is 6.6, BUN and creatinine were 26 and 0.8, uric acid was 5.3, calcium 8.3. Microbiology is positive for sputum samples showing evidence of Pseudomonas aeruginosa and right foot wound showing evidence of Pseudomonas and methicillin-resistant Staph aureus. IMAGING: CT angiogram was negative for pulmonary embolism. There is evidence of thyromegaly. There is also evidence of pulmonary nodules 1 cm within the superior segment of the right lower lobe and less than 1 cm nodule in the superior segment of the left lower lobe. There are small bilateral pleural effusions as well as a loculated effusion on the left. MEDICATIONS: Medications are reviewed. The patient is on Tylenol, albuterol inhaler, vitamin C, Lipitor, Symbicort, Tums, Maxipime, vitamin D3, Santyl topical, B12, Pepcid Lasix, gabapentin, DuoNeb, Lidoderm patch, metoprolol, multivitamin, Percocet, Xarelto, and a saline IV. ASSESSMENT: 1. Solitary pulmonary nodule 1 cm, right lower lobe and about a 9 mm solitary pulmonary nodule, left lower lobe. Both could be worked up as an outpatient. 2. History of severe chronic obstructive pulmonary disease, with an FEV1 that is 35% of predicted. 3. Chronic hypoxemic respiratory failure. 4. Methicillin-resistant Staph aureus and Pseudomonas aeruginosa wound infection, right foot. 5. Pseudomonas aeruginosa in sputum from March 20 in a patient who is stable from the pulmonary standpoint, this may represent just colonization rather than active infection. 6. History of chronic atrial fibrillation. 7. History of congestive heart failure. 8. History of hypertension. 9. Prior myocardial infarction. 10.Degenerative joint disease. 11.History of pneumonia. 12.History of chronic back pain. 13.History of aspiration pneumonia. 14.History of colon polyps. 15.Prior history of MRSA infection. 16.Status post bypass grafting. PLAN: The patient currently sees Dr. Linares in the pulmonary clinic. The patient will follow with Dr. Linares for the lesion in the right lower lobe and the lesion in the left lower lobe. He might benefit from an outpatient PET scan. He did smoke up until recently. He just recently stop smoking. No additional recommendations are made. He is currently being treated appropriately with antibiotics. He is not having any active pulmonary issues at this time. He is at his baseline. We will continue to follow. His blood culture is showing evidence of MRSA and Pseudomonas aeruginosa, currently being treated. No additional recommendations are made. Prognosis is guarded. The patient is counseled about the importance of smoking cessation. The patient is being followed by Infectious Diseases. MMODL / IJN: [id number] /
--- NOTE | 2020-03-24 15:19 | P.PN ---
Subjective Progress Note Date: 03/24/20 This is an 80-year-old male who was recently admitted with Pseudomonas pneumonia along with a decubitus ulcer as well as right ankle cellulitis with culture showing Pseudomonas and MRSA and is being closely monitored. Patient is maintained on IV antibiotics in the form of cefepime and will continue at this time. Infectious disease is following. Patient continues to be quite weak and was recently at [facility] for continued PT/OT. Patient will likely require ECF once stabilized and discharged. Multiple discussions have been had with family member daughter Tamia she continues to be quite concerned about her father's complex medical issues. Patient underwent CT of the abdomen and pelvis showing a possible mass at the gastroesophageal junction which is a change compared to old chest CT in July 2013 along with bilateral pleural effusions and a hiatal hernia. Pulmonary will be consulted. Review of systems: Constitutional: No reports of fatigue, fever, or chills Cardiovascular: No reports of chest pain or palpitations Respiratory: Reports mild shortness of breath GI: No reports of nausea, vomiting, or diarrhea : No reports of dysuria or retention Neurovascular: Reports generalized weakness All medications have been reviewed Active Medications Acetaminophen (Acetaminophen Tab 500 Mg Tab) 1,000 mg PO Q6HR PRN PRN Reason: Fever>101 Last Admin: 03/21/20 20:03 Dose: 1,000 mg Documented by: Albuterol Sulfate (Albuterol Nebulized 2.5 Mg/3 Ml) 2.5 mg INHALATION RT-QID PRN PRN Reason: Shortness Of Breath Albuterol/Ipratropium (Ipratropium-Albuterol 3 Ml Neb) 3 ml INHALATION RT-QID [facility] Last Admin: 03/24/20 07:03 Dose: 3 ml Documented by: Ascorbic Acid (Ascorbic Acid 500 Mg Tab) 1,000 mg PO DAILY [facility] Last Admin: 03/24/20 08:52 Dose: 1,000 mg Documented by: Atorvastatin Calcium (Atorvastatin 40 Mg Tab) 40 mg PO HS [facility] Last Admin: 03/23/20 21:02 Dose: 40 mg Documented by: Budesonide/Formoterol Fumarate (Symbicort 80-4.5 Mcg Inhaler) 2 puff INHALATION RT-BID [facility] Last Admin: 03/24/20 07:03 Dose: 2 puff Documented by: Calcium Carbonate/Glycine (Calcium Carbonate 500 Mg Chewable) 500 mg PO DAILY [facility] Last Admin: 03/24/20 08:52 Dose: 500 mg Documented by: Cholecalciferol (Cholecalciferol 1,000 Unit Tab) 1,000 unit PO DAILY [facility] Last Admin: 03/24/20 08:52 Dose: 1,000 unit Documented by: Collagenase (Collagenase 250 Unit/Gm Ointment 30 Gm Tube) 1 applic TOPICAL DAILY [facility] Last Admin: 03/24/20 08:53 Dose: 1 applic Documented by: Cyanocobalamin (Cyanocobalamin 500 Mcg Tab) 1,000 mcg PO DAILY [facility] Last Admin: 03/24/20 08:53 Dose: 1,000 mcg Documented by: Famotidine (Famotidine 20 Mg Tab) 20 mg PO Q12HR [facility] Last Admin: 03/24/20 08:52 Dose: 20 mg Documented by: Furosemide (Furosemide 40 Mg Tab) 40 mg PO BID [facility] Last Admin: 03/24/20 08:53 Dose: 40 mg Documented by: Gabapentin (Gabapentin 300 Mg Cap) 600 mg PO BID [facility] Last Admin: 03/24/20 08:52 Dose: 600 mg Documented by: Sodium Chloride (Saline 0.9%) 1,000 mls @ 75 mls/hr IV .[id number] [facility] Last Admin: 03/24/20 11:56 Dose: Not Given Documented by: Cefepime HCl 2 gm/ Sodium (Chloride) 100 mls @ 25 mls/hr IVPB Q12HR [facility] Last Admin: 03/24/20 08:52 Dose: 25 mls/hr Documented by: Iopamidol (Iopamidol Contrast (Oral Use) Vial) 30 ml PO Q60M PRN PRN Reason: CT Scan Stop: 03/24/20 16:00 Lidocaine (Lidocaine 5% Patch) 1 patch TOPICAL DAILY [facility] Last Admin: 03/24/20 11:51 Dose: 1 patch Documented by: Metoprolol Tartrate (Metoprolol Tartrate 25 Mg Tab) 25 mg PO BID [facility] Last Admin: 03/24/20 08:53 Dose: 25 mg Documented by: Miscellaneous Information (Pneumonia Protocol Utilized 1 Each Misc) 1 each PO ONCE PRN PRN Reason: Per Protocol Multivitamins (Multivitamins, Thera 1 Each Tab) 1 each PO DAILY [facility] Last Admin: 03/24/20 08:53 Dose: 1 each Documented by: Oxycodone/Acetaminophen (Oxycodone-Apap 10-325mg 1 Each Tab) 1 each PO Q6H PRN PRN Reason: Pain Last Admin: 03/24/20 09:41 Dose: 1 each Documented by: Rivaroxaban (Rivaroxaban 20 Mg Tab) 20 mg PO DAILY [facility] Last Admin: 03/24/20 08:53 Dose: 20 mg Documented by: Objective - Vital Signs Vital signs: Vital Signs Temp 98.4 F 03/24/20 08:00 Pulse 65 03/24/20 08:00 Resp 16 03/24/20 08:00 BP 103/54 03/24/20 08:00 Pulse Ox 98 03/24/20 08:00 Intake & Output 03/23/20 03/24/20 03/24/20 18:59 06:59 18:59 Intake Total 1340 Output Total 2800 2100 Balance -2800 -760 Intake: Intake, IV Titration 1000 Amount Cefepime 2 gm In Sodium 100 Chloride 0.9% 100 ml @ 25 mls/hr IVPB Q12HR [facility] Rx #:[id number] Sodium Chloride 0.9% 1, 900 000 ml @ 75 mls/hr IV . [id number] [facility] Rx#:[id number] Oral 340 Output: Urine 2800 2100 Uretheral (Bowman) 2100 Other: Voiding Method Indwelling Catheter Indwelling Catheter Indwelling Catheter - Exam Gen: This is a 80-year-old male sitting up in bed, awake, alert and oriented 3, well-developed, well-nourished. Temp is 98.4F, pulse is 65, respirations are 16, blood pressure is 103/54, oxygen saturation is 98% on 3 L via nasal cannula. HEENT: Head is atraumatic, normocephalic. Pupils equal, round. Sclerae is anicteric. NECK: Supple. No JVD. No lymphadenopathy. No thyromegaly. LUNGS: Manage breath sounds at the bases with a few rhonchi noted. HEART: S1, S2 are muffled ABDOMEN: Soft. Bowel sounds are present. No masses. No tenderness. EXTREMITIES: No pedal edema. No calf tenderness. Bilateral Unna boots noted as patient has right ankle ulcer NEUROLOGICAL: Patient is awake, alert and oriented x3. Diffusely weak - Labs CBC & Chem 7: 03/24/20 06:15 03/24/20 06:15 Labs: Abnormal Lab Results - Last 24 Hours (Table) 03/24/20 03/24/20 Range/Units 06:15 06:15 RBC 2.99 L (4.30-5.90) m/uL Hgb 8.1 L (13.0-17.5) gm/dL Hct 25.7 L (39.0-53.0) % RDW 15.6 H (11.5-15.5) % Potassium 3.4 L (3.5-5.5) mmol/L BUN/Creatinine Ratio 32.50 H (12.00-20.00) Ratio Glucose 118 H (70-110) mg/dL Calcium 8.3 L (8.7-10.3) mg/dL Microbiology - Last 24 Hours (Table) 03/20/20 14:43 Anaerobic Culture - Final Knee - Left 03/19/20 15:59 Anaerobic Culture - Final Foot - Right 03/19/20 14:46 Blood Culture - Preliminary Blood No Growth after 96 hours 03/19/20 14:39 Blood Culture - Preliminary Blood No Growth after 96 hours Assessment and Plan Assessment: Pseudomonas aeruginosa pneumonia, possibly gram-negative pneumonia, with sepsis, present on admission Right foot ulcer, possibly MRSA as well as pseudomonas with sepsis Left wrist, elbow and shoulder arthritis, possibly pseudogout Possible bilateral interstitial pneumonia versus fibrosis Left upper chest pain secondary to left upper extremity pain History of lung nodules next line history of atrial fibrillation, chronic Elevated lactic acid, possibly secondary to sepsis, present on admission History of congestive heart failure, ejection fraction unknown History of chronic obstructive pulmonary disease Gait dysfunction hypertension History of myocardial infarction History of degenerative joint disease History of pneumonia Hypothyroidism History of left breast mass History of colonic polyp history of back surgery history of coronary disease, coronary artery bypass grafting Remote history of nicotine dependence Full code Recommendations and discussion: Recommend continue current medications, management, and symptomatic treatment. Continue with IV antibiotics. Multiple consultations following. Pulmonary consulted as chest CT showed some pulmonary nodules. To continue with local wound care. Patient was under the impression he was being discharged home with continued home care although patient continues to be quite weak and will have PT/OT evaluate the patient for the possibility of continued PT/OT therapy at an ECF. Due to multiple complex medical issues, prognosis is guarded. Will repeat a.m. labs. Further recommendations to follow.
[2020-03-24] MEDS ORDERED: Potassium Replacement Protocol 1 EACH MISC MISCELLANE PRN ×2 (15:37→15:43)
--- NOTE | 2020-03-24 17:27 | PN ---
PROGRESS NOTE DATE OF SERVICE: 03/24/2020 REASON FOR FOLLOWUP: 1. Pseudomonas pneumonia. 2. Right lateral ankle wound. 3. Sacral wound. INTERVAL HISTORY: The patient is currently afebrile. The patient overall is feeling much better. He is breathing comfortably. The patient denies having any chest pain, cough ( ). No abdominal pain. Denies pain to the right lateral ankle area. Did have some pain to the sacral wound. PHYSICAL EXAMINATION: Blood pressure 110/54, pulse of 55, temperature 98.4, he is 98% on 2 liters nasal cannula. General description is an elderly male up in the bed in no distress. Respiratory system: Unlabored breathing, decreased breath sounds in the base, with no wheeze. Heart S1, S2. Regular rate and rhythm. Abdomen is soft, no tenderness. LABS: Hemoglobin 8.1, white count 6.4, BUN of 26, creatinine 0.8. DIAGNOSTIC IMPRESSION AND PLAN: 1. Patient admitted to the hospital with fever, elevated white count. Sepsis was likely pneumonia. Sputum has been finalized with Pseudomonas. Patient clinically responding to the cefepime, finish therapy with oral Cipro. 2. Patient with right lateral ankle superficial wound. Did have superficial cultures. Did grow two different pathogen, more likely colonizer as no evidence of any cellulitis. 3. Sacral wound, no cellulitis. Local care to continue per the wound care team. MMODL / IJN: [id number] / MTDD
[2020-03-24] MEDS: POTASSIUM CHLORIDE ER 20 MEQ TAB.ER PO SCH ×2 (18:01→21:46)
[2020-03-24] MEDS: ATORVASTATIN 40 MG TAB PO SCH (21:19)
[2020-03-25] MEDS: SODIUM CHLORIDE 0.9% 1,000 ML IV SCH ×2 (04:19→17:40)
[2020-03-25 06:29] LABS: Basophils % (A) 0 %; Eosinophils # (A) 0.3 k/uL (0-0.7); Eosinophils % (A) 4 %; HCT 26.2 % (39.0-53.0); HGB 8.4 gm/dL (13.0-17.5); Hypochromasia Moderate; Lymphocytes # (A) 1.6 k/uL (1.0-4.8); Lymphocytes % (A) 22 %; MCH 27.4 pg (25.0-35.0); MCV 85.5 fL (80.0-100.0); Mean Platelet Volume 6.7; Monocytes # (A) 0.6 k/uL (0-1.0); Monocytes % (A) 8 %; Neutrophils # (A) 4.5 k/uL (1.3-7.7); Neutrophils % (A) 62 %; Platelet Count 273 k/uL (150-450); RBC 3.06 m/uL (4.30-5.90); RDW 15.5 % (11.5-15.5); WBC 7.3 k/uL (3.8-10.6)
[2020-03-25] MEDS: LIDOCAINE 5% PATCH TOPICAL SCH (07:20)
[2020-03-25] MEDS: CEFEPIME 2 GM in SODIUM CHLORIDE 0.9% 100 ML IVPB SCH ×2 (07:21→20:22)
[2020-03-25] MEDS: CHOLECALCIFEROL 1,000 UNIT TAB PO SCH (07:22)
[2020-03-25] MEDS: GABAPENTIN 300 MG CAP PO SCH ×2 (07:22→20:21)
[2020-03-25] MEDS: CALCIUM CARBONATE 500 MG CHEWABLE PO SCH (07:22)
[2020-03-25] MEDS: RIVAROXABAN 20 MG TAB PO SCH (07:23)
[2020-03-25] MEDS: oxyCODONE-APAP 10-325MG 1 EACH TAB PO PRN ×2 (07:23→20:25)
[2020-03-25] MEDS: FAMOTIDINE 20 MG TAB PO SCH ×2 (07:23→20:21)
[2020-03-25] MEDS: ASCORBIC ACID 500 MG TAB PO SCH (07:24)
[2020-03-25] MEDS: CYANOCOBALAMIN 500 MCG TAB PO SCH (07:24)
[2020-03-25] MEDS: METOPROLOL TARTRATE 25 MG TAB PO SCH ×2 (07:24→20:21)
[2020-03-25] MEDS: FUROSEMIDE 40 MG TAB PO SCH ×2 (07:25→20:21)
[2020-03-25] MEDS: COLLAGENASE 250 UNIT/GM OINTMENT 30 GM TUBE TOPICAL SCH (07:25)
[2020-03-25] MEDS: IPRATROPIUM-ALBUTEROL 3 ML NEB INHALATION SCH ×4 (08:35→19:35)
[2020-03-25] MEDS: SYMBICORT 80-4.5 MCG INHALER INHALATION SCH ×2 (08:35→19:35)
[2020-03-25 09:36] LABS: African American GFR (CKD) 96.4 (60.0-200.0); Anion Gap 6.7 mmol/L (4.00-12.00); Calcium 8.6 mg/dL (8.7-10.3); Carbon Dioxide 32.3 mmol/L (21.6-31.8); Non-African American GFR(CKD) 83.2 (60.0-200.0)
[2020-03-25] MEDS: MULTIVITAMINS, THERA 1 EACH TAB PO SCH (12:30)
--- NOTE | 2020-03-25 13:20 | P.PN ---
Subjective Progress Note Date: 03/25/20 Principal diagnosis: Sepsis, wound infection, urinary tract infection The patient is seen today 03/25/2020 in follow-up on the regular medical floor. He is currently resting fairly comfortably in bed. Awake and alert in no acute distress. Maintaining O2 saturations in the mid 90s on 3 L/m per nasal cannula. He is currently afebrile. Hemodynamically stable. We are consulted on this patient regarding an abnormal CAT scan which revealed a 1 cm nodule within the superior segment of the right lower lobe. There is also a stellate lesion in the superior segment of the left lower lobe measuring 9 mm. He is recommended outpatient PET scan and follow up with Dr. Linares. He does have significant chronic obstructive pulmonary disease with an FEV1 value 35% of predicted. He is maintained on home oxygen. He also has a history of congestive heart failure, atrial fibrillation, degenerative joint disease, hyperlipidemia. He has been having ongoing issues with wounds of the lower extremities with MRSA and pseudomonas aeruginosa in the right foot/ankle, infectious diseases on the case. White count 7.3. Hemoglobin 8.4. Sodium 142. Potassium 4.0. Creatinine 0.8. He remains on Symbicort, albuterol, antibiotics in the form of cefepime. Anticoagulated with Xarelto. Objective - Vital Signs Vital signs: Vital Signs Temp 98.4 F 03/25/20 08:00 Pulse 80 03/25/20 08:48 Resp 18 03/25/20 08:48 BP 109/58 03/25/20 08:00 Pulse Ox 97 03/25/20 08:00 Intake & Output 03/24/20 03/25/20 03/25/20 18:59 06:59 18:59 Intake Total 200 Output Total 1200 3600 Balance -1200 -3400 Intake: Oral 200 Output: Urine 1200 3600 Uretheral (Bowman) 1500 Other: Voiding Method Indwelling Catheter Indwelling Catheter Indwelling Catheter - Exam Gen: This is a very pleasant 80-year-old male he shouldn't, sitting comfortably in bed in bed, awake, alert and oriented 3, well-developed, well-nourished. Maintaining O2 saturations in the 90s on 3 L/m per nasal cannula HEENT: Head is atraumatic, normocephalic. Pupils equal, round. Sclerae is anicteric. NECK: Supple. No JVD. No lymphadenopathy. No thyromegaly. LUNGS: Diminished breath sounds at the bases with a few catered rhonchi noted. HEART: S1, S2 are muffled ABDOMEN: Soft. Bowel sounds are present. No masses. No tenderness. EXTREMITIES: No pedal edema. No calf tenderness. Bilateral Unna boots noted as patient has right ankle ulcer NEUROLOGICAL: Patient is awake, alert and oriented x3. Diffusely weak Skin: Open wounds of the right ankle - Labs CBC & Chem 7: 03/25/20 05:51 03/25/20 05:51 Labs: Abnormal Lab Results - Last 24 Hours (Table) 03/25/20 03/25/20 Range/Units 05:51 05:51 RBC 3.06 L (4.30-5.90) m/uL Hgb 8.4 L (13.0-17.5) gm/dL Hct 26.2 L (39.0-53.0) % Carbon Dioxide 32.3 H (21.6-31.8) mmol/L BUN 28.0 H (9.0-27.0) mg/dL BUN/Creatinine Ratio 35.00 H (12.00-20.00) Ratio Calcium 8.6 L (8.7-10.3) mg/dL Microbiology - Last 24 Hours (Table) 03/19/20 14:39 Blood Culture - Preliminary Blood No Growth after 120 hours 03/19/20 14:46 Blood Culture - Preliminary Blood No Growth after 120 hours 03/20/20 14:43 Anaerobic Culture - Final Knee - Left Assessment and Plan Assessment: 1 Sepsis secondary to pseudomonas aeruginosa pneumonia as well as MRSA and pseudomonas aeruginosa of the wound of the right foot 2 Acute on chronic hypoxic respiratory failure secondary to above 3 bilateral lung nodules including a 1.0 cm superior segment lesion in the right lower lobe. 0.9 cm lesion in the superior segment of the left lower lobe 4 Suspected mass at the gastroesophageal junction measuring 4 cm 5 Severe chronic obstructive pulmonary disease his FEV1 value 35% of predicted, oxygen dependent 6 History of chronic tobacco dependence 7 History of congestive heart failure 8 History of hypertension 9 History of myocardial infarction 10 Degenerative joint disease 11 Chronic back pain 12 History of aspiration pneumonias 13 Coronary artery disease with previous bypass grafting 13 History of atrial fibrillation, anticoagulated with Xarelto Plan: The patient was seen and evaluated by Dr. Herrera Currently stable from the pulmonary standpoint Plan is for follow-up with a PET scan in the outpatient setting Consult GI services regarding suspected mass at the GE junction Antibiotics per ID services We'll continue to follow I, the cosigning physician, performed a history & physical examination of the patient. Lungs sounds with few scattered rhonchi. Maintaining good O2 saturations in the 90s on 3 L/m per nasal cannula. I discussed the assessment and plan of care with my nurse practitioner, Petra Rivera. I attest to the above note as dictated by her.
--- NOTE | 2020-03-25 15:43 | PN ---
PROGRESS NOTE DATE OF SERVICE: 03/25/2020 INTERVAL HISTORY: This 80-year-old gentleman who was admitted with Pseudomonas pneumonia also had sepsis. Patient also had right foot ulcer. The patient was on broad spectrum IV antibiotics. Patient had multiple repeat hospital admissions. The patient also confused. The patient is being closely monitored. Possible ECF rehab at [facility] was also being considered. To have talked to Gabby, the power of commercial attorney, at length. At this time multiple consultants are following the patient closely. An abdominal pelvis CAT scan which I reviewed personally also showed possible mass at the GE junction with a change compared to the old CT scan, bilateral pleural effusions also noted. PAST MEDICAL HISTORY: Reviewed. REVIEW OF SYSTEMS: CARDIOVASCULAR: No angina or palpitations. RESPIRATORY: As mentioned earlier. GI: As mentioned earlier. : No dysuria. NERVOUS SYSTEM: No numbness or weakness. CURRENT MEDICATIONS: Reviewed and include Tylenol, Ventolin, DuoNeb, vitamin C, Lipitor, Santal, Pepcid, Lasix, Lidoderm. PHYSICAL EXAM: GENERAL: Patient is alert and oriented times three. VITAL SIGNS: Pulse 80, blood pressure 109/50, respirations 18, temperature 98.4, pulse ox 97% on 3 liters. HEENT: Conjunctivae normal. Oral mucosa moist. NECK: No jugular venous distention. No carotid bruits. No lymph node enlargement. RESPIRATORY: Breath sounds diminished at the bases. A few scattered rhonchi and crackles. HEART: S1 and S2, muffled. ABDOMEN: Soft, no tenderness. No masses palpable. EXTREMITIES: No edema, no swelling. NERVOUS: No focal deficits. LABS: WBC 7.3, hemoglobin is 8.4, and BUN is 35. ASSESSMENT: 1. Pseudomonas aeruginosa pneumonia, possibly gram-negative pneumonia with sepsis present on admission. 2. Right foot ulcer, possible MRSA as well as Pseudomonas with sepsis. 3. Left wrist, elbow, shoulder arthritis, possibly pseudogout. 4. Possible mass in the GE junction with a change compared to the old CT scan 2013. 5. Possible bilateral interstitial pneumonia versus fibrosis. 6. Left upper chest pain secondary to left extremity pain. 7. History of lung nodules. 8. History atrial fibrillation, chronic. 9. Elevated lactic acid possibly secondary sepsis present on admission. 10.History of CHF ejection fraction unknown. 11.History of chronic obstructive pulmonary disease. 12.Gait dysfunction. 13.Hypertension. 14.History of myocardial infarction. 15.History of degenerative joint disease. 16.History of pneumonia. 17.History of hypothyroidism. 18.History of breast mass. 19.History of colonic polyps. 20.History of back surgery. 21.History of coronary artery disease, coronary artery bypass grafting. 22.Remote history of nicotine dependence. 23.FULL CODE. RECOMMENDATIONS AND DISCUSSION: Recommend to continue current management and symptomatic treatment. Continue with antibiotics. Continue the rest of medications. PT, OT evaluation. The patient was previously seen by Dr. Ocampo. I would recommend surgical evaluation regarding the abnormal CT scan also. The breast mass is reported as gynecomastia in the previous biopsy. The prognosis is guarded because of multiple complex medical issues. Further recommendations to follow. Dr. Abraham will follow the patient on Friday. LEW / VELVET: [id number] /
--- NOTE | 2020-03-25 18:34 | P.CONS ---
History of Present Illness - Reason for Consult Consult date: 03/25/20 Abnormal computed tomography scan abdomen Requesting physician: Jamison E Sheet - Chief Complaint Pneumonia - History of Present Illness 80-year-old male with a medical history significant for coronary artery disease, congestive heart failure, hypertension, atrial fibrillation, prior hiatal hernia repair is being treated for Pseudomonas pneumonia, decubitus ulcer and right ankle cellulitis. The patient is currently receiving antibiotic therapy. He had imaging performed with a computed tomography scan of the abdomen which showed a possible mass at the GE junction. In discussion the patient reports that he previously had hiatal hernia repair and this was approximately 5 years ago. Subsequently he has had EGDs with balloon dilation. He does report intermittent episodes of solid food dysphagia but is currently tolerating his diet. He also reports constipation at baseline. Laboratory evaluation significant for WBC 7.3, hemoglobin 8.4, platelet count 273,000. Review of Systems REVIEW OF SYSTEMS: CONSTITUTIONAL: Denies any fevers, chills, weight change or fatigue. CARDIOVASCULAR: Denies any chest pain, palpitations high or low blood pressures RESPIRATORY: Denies any shortness of breath, hemoptysis or cough. GENITOURINARY: No dysuria or hematuria. MUSCULOSKELETAL: No weakness reported. SKIN: Denies any new rashes or lesions, jaundice or pallor. PSYCHIATRIC: Denies any depression or anxiety. NEUROLOGY: Denies headache, denies any new focal deficits. EARS/NOSE/THROAT: No recent hearing change, congestion, nasal discharge or sore throat. EYES: No pain in eyes, discharge or change in vision. GASTROINTESTINAL: As per HPI. Past Medical History Past Medical History: Atrial Fibrillation, Heart Failure, COPD, Hypertension, Myocardial Infarction ([place]), Musculoskeletal Disorder, Osteoarthritis (OA), Pneumonia, Thyroid Disorder Additional Past Medical History / Comment(s): left breast mass HX OF COLON POLYPS. HX RIGHT BREAST MASS. O2 AT 2L NC @HS AND PRN. Hx Aspiration Pneumonia R/T "FLAPPER." HX OF THYROID PROBLEM - NO TX NOW. CHRONIC BACK PAIN, RUPESH LEG NT. RT FOOT/ANKLE EDEMA, WEARS TEDS. RUPESH CTS Last Myocardial Infarction Date:: 1987 History of Any Multi-Drug Resistant Organisms: MRSA Year Discovered:: MRSA 03/19/20, 03/2012-01/2013 ankle sore MDRO Source:: FOOT Past Surgical History: Back Surgery, Coronary Bypass/CABG, Joint Replacement, Orthopedic Surgery Additional Past Surgical History / Comment(s): left carpel tunnel, CARPAL TUNNEL RIGHT x 2. CABG 1987 X2. RUPESH SCOPES KNEES. Rupesh Hip Replacement, Nicholas Fundoplicaton. Rt Shoulder Rotator Cuff. BACK X2. HX OF EPIDURALS FOR PAIN. Past Anesthesia/Blood Transfusion Reactions: No Reported Reaction Past Psychological History: No Psychological Hx Reported Smoking Status: Former smoker Past Alcohol Use History: None Reported Past Drug Use History: None Reported - Past Family History Daughter(s) Family Medical History: Cancer Father History Unknown: Yes Mother Family Medical History: No Reported History Medications and Allergies Home Medications Medication Instructions Recorded Confirmed Type Metoprolol Tartrate [Lopressor] 25 mg PO BID 08/06/13 03/19/20 History Rivaroxaban [Xarelto] 20 mg PO DAILY 08/06/13 03/19/20 History Furosemide 40 mg PO BID 08/09/13 03/19/20 History Fluticasone/Salmeterol [Advair 1 puff INHALATION RT-BID 08/18/14 03/19/20 History 250-50 Diskus] Tiotropium 18 Mcg/Puff [Spiriva] 1 cap INHALATION RT-DAILY 08/18/14 03/19/20 History Atorvastatin [Lipitor] 40 mg PO HS 01/20/18 03/19/20 History Multivitamin [Men's Multi-Vitamin] 1 tab PO DAILY 01/20/18 03/19/20 History Albuterol Sulfate [Ventolin HFA] 2 puff INHALATION RT-QID PRN 11/22/19 03/19/20 History Ipratropium-Albuterol Nebulize 3 ml INHALATION RT-QID 11/22/19 03/19/20 History [Duoneb 0.5 mg-3 mg/3 ml Soln] Acetaminophen Tab [Tylenol] 650 mg PO Q6HR PRN tab 01/11/20 03/19/20 Rx Digoxin [Lanoxin] 125 mcg PO DAILY tab 01/11/20 03/19/20 Rx Gabapentin 600 mg PO BID #6 tab 01/11/20 03/19/20 Rx oxyCODONE HCL/ACETAMINOPHEN 1 tab PO TID PRN #9 tab 01/11/20 03/19/20 Rx [Percocet 10-325 mg] Ascorbic Acid [Vitamin C] 1,000 mg PO DAILY 03/19/20 03/19/20 History Calcium Carbonate [Calcium] 600 mg PO DAILY 03/19/20 03/19/20 History Cholecalciferol [Vitamin D3 (25 1,000 unit PO DAILY 03/19/20 03/19/20 History Mcg = 1000 Iu)] Cyanocobalamin (Vitamin B-12) 1,000 mcg PO DAILY 03/19/20 03/19/20 History [Vitamin B-12] Nitrofurantoin Monohyd/M-Cryst 100 mg PO BID 03/19/20 03/19/20 History [Macrobid] Allergies Allergy/AdvReac Type Severity Reaction Status Date / Time No Known Allergies Allergy Verified 03/19/20 14:36 Physical Exam Vitals: Vital Signs Temp Pulse Pulse Resp BP Pulse Ox 03/25/20 08:48 80 18 03/25/20 08:35 78 18 03/25/20 08:00 98.4 F 92 18 109/58 97 03/25/20 07:10 18 03/25/20 01:20 99.6 F 62 20 102/55 95 03/24/20 19:30 99.5 F 79 20 105/58 92 L 03/24/20 17:11 98.6 F 75 16 113/63 97 03/24/20 16:26 76 03/24/20 16:13 76 Intake and Output 03/24/20 03/25/20 03/25/20 22:59 06:59 14:59 Intake Total 100 100 Output Total 1800 3000 Balance -1700 -2900 Intake: Oral 100 100 Output: Urine 1800 3000 Uretheral (Bowman) 1500 Other: Voiding Method Indwelling Catheter Indwelling Catheter On physical examination, patient appears comfortable in no apparent distress. HEAD: Normocephalic, atraumatic. EYES: No scleral icterus. No conjunctival injection. MOUTH: No lesions, tongue midline. NECK: Trachea midline, no gross abnormalities. CHEST: Decreased air entry in all lung marquez. HEART: S1-S2 appreciated, regularly irregular. ABDOMEN: Soft, obese. Bowel sounds are positive. No organomegaly. No guarding or rigidity. EXTREMITIES: Lower extremity cellulitis. SKIN: No rashes, no jaundice, sacral decubitus ulcer. NEUROLOGIC: Alert and oriented x3. No focal deficits. Results CBC & Chem 7: 03/25/20 05:51 03/25/20 05:51 Labs: Abnormal Lab Results - Last 24 Hours (Table) 03/25/20 03/25/20 Range/Units 05:51 05:51 RBC 3.06 L (4.30-5.90) m/uL Hgb 8.4 L (13.0-17.5) gm/dL Hct 26.2 L (39.0-53.0) % Carbon Dioxide 32.3 H (21.6-31.8) mmol/L BUN 28.0 H (9.0-27.0) mg/dL BUN/Creatinine Ratio 35.00 H (12.00-20.00) Ratio Calcium 8.6 L (8.7-10.3) mg/dL Microbiology - Last 24 Hours (Table) 03/19/20 14:39 Blood Culture - Preliminary Blood No Growth after 120 hours 03/19/20 14:46 Blood Culture - Preliminary Blood No Growth after 120 hours 03/20/20 14:43 Anaerobic Culture - Final Knee - Left CT scan - abdomen: report reviewed (Computed tomography scan of the abdomen with findings of possible mass at the gastroesophageal junction) Assessment and Plan (1) Abnormal CT of the abdomen Narrative/Plan: Continue 1-year-old male with multiple medical comorbidities currently being treated for Pseudomonas pneumonia, decubitus ulcer and marked from a cellulitis. He had a computed tomography scan of the abdomen performed for evaluation w [facility] showed possible mass at the gastroesophageal junction. On questioning he does report intermittent solid food dysphagia. He states he is status post hiatal hernia repair 5 years ago and subsequently has required EGD with dilation on 2 occasions. Unclear if computed tomography scan findings are related to prior hiatal hernia repair, esophagitis, esophageal mass or other etiology. Current Visit: Yes Status: Acute Code(s): R93.5 - ABN FINDINGS ON DX IMAGING OF ABD REGIONS, INC RETROPERITON SNOMED Code(s): 36721085052348158 (2) Esophageal dysphagia Current Visit: Yes Status: Acute Code(s): R13.10 - DYSPHAGIA, UNSPECIFIED SNOMED Code(s): 37320214 Plan: Supportive care Okay for diet as tolerated Nothing by mouth after midnight Plan for EGD tomorrow for evaluation of gastroesophageal junction Continue other medical management per primary team Extensive discussion with the patient with all of the risks, benefits and possible couple occasions of the procedure explained at length, due to anticoagulation limited biopsies will be taken. If any abnormalities are found Thank you for allowing us to participate in the care of the patient
[2020-03-25] MEDS: ATORVASTATIN 40 MG TAB PO SCH (20:21)
--- NOTE | 2020-03-25 23:26 | PN ---
PROGRESS NOTE DATE OF SERVICE: 03/25/2020 REASON FOR FOLLOWUP: Pneumonia. INTERVAL HISTORY: Patient is currently afebrile, has been complaining of feeling slightly weak and tired today. The patient denies having any chest pain or shortness of breath. Minimal cough. No abdominal pain. No diarrhea. PHYSICAL EXAMINATION: Blood pressure 101/56, pulse of 88, temperature 98.9. He is 92% on 3 L nasal cannula. General description is an elderly male lying in bed in no distress. Respiratory system: Unlabored breathing, decreased breath sounds at bases. No wheeze. Heart S1, S2. Regular rate and rhythm. Abdomen soft, no tenderness. Extremities: No edema of the feet. LAB: Hemoglobin 8.4, white count 7.3, BUN of 28, creatinine 0.8. DIAGNOSTIC IMPRESSION AND PLAN: Patient admitted to the hospital with fever, sepsis most likely pneumonia. Sputum has been Pseudomonas. Patient is covered with cefepime to continue to finish oral antibiotics on discharge. Monitor clinical course closely. Continue supportive care. MMODL / IJN: [id number] /
[2020-03-26] MEDS: SODIUM CHLORIDE 0.9% 1,000 ML IV SCH ×2 (05:16→20:23)
[2020-03-26 06:05] LABS: Basophils % (A) 1 %; Eosinophils # (A) 0.2 k/uL (0-0.7); Eosinophils % (A) 3 %; HCT 25.5 % (39.0-53.0); Hypochromasia Moderate; Lymphocytes # (A) 1.5 k/uL (1.0-4.8); Lymphocytes % (A) 21 %; MCH 27.1 pg (25.0-35.0); MCHC 31.5 g/dL (31.0-37.0); Mean Platelet Volume 6.9; Monocytes # (A) 0.8 k/uL (0-1.0); Monocytes % (A) 10 %; Neutrophils # (A) 4.7 k/uL (1.3-7.7); Neutrophils % (A) 63 %; Platelet Count 265 k/uL (150-450); RBC 2.97 m/uL (4.30-5.90); RDW 15.4 % (11.5-15.5); WBC 7.4 k/uL (3.8-10.6)
[2020-03-26] MEDS: SYMBICORT 80-4.5 MCG INHALER INHALATION SCH ×2 (08:16→20:09)
[2020-03-26] MEDS: IPRATROPIUM-ALBUTEROL 3 ML NEB INHALATION SCH ×4 (08:16→20:09)
[2020-03-26] MEDS ORDERED: PROPOFOL 10 MG/ML 20 ML VIAL IV ONE (08:44)
[2020-03-26] MEDS ORDERED: IV FLUID CONTINUATION 1,000 ML IV ONE (08:49)
--- NOTE | 2020-03-26 09:07 | P.PCN ---
Date of Procedure: 03/26/20 Description of Procedure: BRIEF HISTORY: 80-year-old male with a medical history significant for coronary artery disease, congestive heart failure, hypertension, atrial fibrillation, prior hiatal hernia repair is being treated for Pseudomonas pneumonia, decubitus ulcer and right ankle cellulitis. The patient is currently receiving antibiotic therapy. He had imaging performed with a computed tomography scan of the abdomen which showed a possible mass at the GE junction. In discussion the patient reports that he previously had hiatal hernia repair and this was approximately 5 years ago. Subsequently he has had EGDs with balloon dilation. He does report intermittent episodes of solid food dysphagia but is currently tolerating his diet. He also reports constipation at baseline. PROCEDURE PERFORMED: Esophagogastroduodenoscopy. PREOPERATIVE DIAGNOSIS: Abnormal computed tomography scan abdomen, esophageal dysphagia, rule out esophageal mass. ESTIMATED BLOOD LOSS: Minimal. IV sedation per anesthesia. PROCEDURE: After informed consent was obtained, the patient was brought into the endoscopy unit. IV sedation was administered by Anesthesia under continuous monitoring. Initially the Olympus GIF-190 video endoscope was inserted into the mouth. Esophagus intubated without any difficulty. It was gradually advanced into the stomach and duodenum and carefully examined. The bulb and the second part of the duodenum appeared normal. The scope at this time was withdrawn to the stomach, adequately insufflated with air, and upon careful examination, mucosa of the antrum, body, cardia and the fundus appeared normal, except for some mild erythema suggestive of mild gastritis with biopsies not taken in the setting of anticoagulation therapy. No GE junction mass noted on retroflexion in the stomach, there was some food debris preventing complete visualization of the mucosa. The scope was then withdrawn into the esophagus. The GE junction was located at 39 cm from the incisors, with a small paraesophageal hernia noted and evidence of patient's prior Nicholas fundoplication. The esophagus appeared normal, with a small amount of food debris noted prohibiting complete visualization, the esophagus was somewhat tortuous suggestive of presbyesophagus, however no GE junction mass was noted. There were no erosions or ulcerations seen and the patient tolerated the procedure well. IMPRESSION: 1. Mild gastritis. 2. Presbyesophagus. 3. Prior Nicholas fundoplication. 4. Small Paraesophageal hernia. RECOMMENDATIONS: The findings of this examination were discussed with the patient. Okay to resume soft diet. Continue current medical management. No plans for further endoscopy at this time. GI service will stand by, please call us back with any questions or concerns.
[2020-03-26] MEDS: CYANOCOBALAMIN 500 MCG TAB PO SCH (09:34)
[2020-03-26] MEDS: CHOLECALCIFEROL 1,000 UNIT TAB PO SCH (09:34)
[2020-03-26] MEDS: GABAPENTIN 300 MG CAP PO SCH ×2 (09:34→20:50)
[2020-03-26] MEDS: ASCORBIC ACID 500 MG TAB PO SCH (09:34)
[2020-03-26] MEDS: oxyCODONE-APAP 10-325MG 1 EACH TAB PO PRN ×2 (09:35→14:47)
[2020-03-26] MEDS: MULTIVITAMINS, THERA 1 EACH TAB PO SCH (09:35)
[2020-03-26] MEDS: METOPROLOL TARTRATE 25 MG TAB PO SCH (09:35)
[2020-03-26] MEDS: FUROSEMIDE 40 MG TAB PO SCH ×2 (09:35→20:50)
[2020-03-26] MEDS: FAMOTIDINE 20 MG TAB PO SCH ×2 (09:35→20:51)
[2020-03-26] MEDS: CALCIUM CARBONATE 500 MG CHEWABLE PO SCH (09:35)
[2020-03-26] MEDS: CEFEPIME 2 GM in SODIUM CHLORIDE 0.9% 100 ML IVPB SCH ×2 (09:36→20:51)
[2020-03-26] MEDS: RIVAROXABAN 20 MG TAB PO SCH (09:36)
[2020-03-26] MEDS: LIDOCAINE 5% PATCH TOPICAL SCH (09:36)
[2020-03-26] MEDS: PANTOPRAZOLE 40 MG TABLET PO SCH (09:50)
[2020-03-26] MEDS: COLLAGENASE 250 UNIT/GM OINTMENT 30 GM TUBE TOPICAL SCH (09:50)
[2020-03-26 10:21] LABS: African American GFR (CKD) 91.9 (60.0-200.0); Anion Gap 5.6 mmol/L (4.00-12.00); BUN/Creat Ratio 33.33 Ratio (12.00-20.00); Calcium 8.5 mg/dL (8.7-10.3); Carbon Dioxide 36.4 mmol/L (21.6-31.8); Non-African American GFR(CKD) 79.3 (60.0-200.0)
--- NOTE | 2020-03-26 10:35 | P.GSCN ---
History of Present Illness Consult date: 03/26/20 Reason for Consult: Gastric mass History of present illness: 80-year-old male admitted for pneumonia. Underwent CAT scan abdomen and pelvis which demonstrated a possible mass at the GE junction. Patient states he was having severe reflux with aspiration and underwent repair hiatal hernia with fundoplication [address] Ocampo. GI was also consulted. Patient does describe intermittent dysphagia symptoms. He underwent upper endoscopy today which showed a small recurrent hernia but no mass. Review of Systems The patient denies any acute changes in vision or hearing, no chest pain, no dysuria or hematuria, no headache, no runny nose, no rectal bleeding or melena, no unexplained weight loss Past Medical History Past Medical History: Atrial Fibrillation, Heart Failure, COPD, Hypertension, Myocardial Infarction ([place]), Musculoskeletal Disorder, Osteoarthritis (OA), Pneumonia, Thyroid Disorder Additional Past Medical History / Comment(s): left breast mass HX OF COLON POLYPS. HX RIGHT BREAST MASS. O2 AT 2L [place] @HS AND PRN. Hx Aspiration Pneumonia R/T "FLAPPER." HX OF THYROID PROBLEM - NO TX NOW. CHRONIC BACK PAIN, RUPESH LEG NT. RT FOOT/ANKLE EDEMA, WEARS TEDS. RUPESH CTS Last Myocardial Infarction Date:: 1987 History of Any Multi-Drug Resistant Organisms: MRSA Year Discovered:: MRSA 03/19/20, 03/2012-01/2013 ankle sore MDRO Source:: FOOT Past Surgical History: Back Surgery, Coronary Bypass/CABG, Joint Replacement, Orthopedic Surgery Additional Past Surgical History / Comment(s): left carpel tunnel, CARPAL TUNNEL RIGHT x 2. CABG 1987 X2. RUPESH SCOPES KNEES. Rupesh Hip Replacement, Nicholas Fundoplicaton. Rt Shoulder Rotator Cuff. BACK X2. HX OF EPIDURALS FOR PAIN. Past Anesthesia/Blood Transfusion Reactions: No Reported Reaction Past Psychological History: No Psychological Hx Reported Smoking Status: Former smoker Past Alcohol Use History: None Reported Past Drug Use History: None Reported - Past Family History Daughter(s) Family Medical History: Cancer Father History Unknown: Yes Mother Family Medical History: No Reported History Medications and Allergies Home Medications Medication Instructions Recorded Confirmed Type Metoprolol Tartrate [Lopressor] 25 mg PO BID 08/06/13 03/19/20 History Rivaroxaban [Xarelto] 20 mg PO DAILY 08/06/13 03/19/20 History Furosemide 40 mg PO BID 08/09/13 03/19/20 History Fluticasone/Salmeterol [Advair 1 puff INHALATION RT-BID 08/18/14 03/19/20 History 250-50 Diskus] Tiotropium 18 Mcg/Puff [Spiriva] 1 cap INHALATION RT-DAILY 08/18/14 03/19/20 History Atorvastatin [Lipitor] 40 mg PO HS 01/20/18 03/19/20 History Multivitamin [Men's Multi-Vitamin] 1 tab PO DAILY 01/20/18 03/19/20 History Albuterol Sulfate [Ventolin HFA] 2 puff INHALATION RT-QID PRN 11/22/19 03/19/20 History Ipratropium-Albuterol Nebulize 3 ml INHALATION RT-QID 11/22/19 03/19/20 History [Duoneb 0.5 mg-3 mg/3 ml Soln] Acetaminophen Tab [Tylenol] 650 mg PO Q6HR PRN tab 01/11/20 03/19/20 Rx Digoxin [Lanoxin] 125 mcg PO DAILY tab 01/11/20 03/19/20 Rx Gabapentin 600 mg PO BID #6 tab 01/11/20 03/19/20 Rx oxyCODONE HCL/ACETAMINOPHEN 1 tab PO TID PRN #9 tab 01/11/20 03/19/20 Rx [Percocet 10-325 mg] Ascorbic Acid [Vitamin C] 1,000 mg PO DAILY 03/19/20 03/19/20 History Calcium Carbonate [Calcium] 600 mg PO DAILY 03/19/20 03/19/20 History Cholecalciferol [Vitamin D3 (25 1,000 unit PO DAILY 03/19/20 03/19/20 History Mcg = 1000 Iu)] Cyanocobalamin (Vitamin B-12) 1,000 mcg PO DAILY 03/19/20 03/19/20 History [Vitamin B-12] Nitrofurantoin Monohyd/M-Cryst 100 mg PO BID 03/19/20 03/19/20 History [Macrobid] Allergies Allergy/AdvReac Type Severity Reaction Status Date / Time No Known Allergies Allergy Verified 03/19/20 14:36 Surgical - Exam Vital Signs Temp Pulse Resp BP Pulse Ox 101.5 F H 125 H 18 151/79 96 03/19/20 13:25 03/19/20 13:25 03/19/20 13:25 03/19/20 13:25 03/19/20 13:25 Physical exam: General: Well-developed, well-nourished HEENT: Normocephalic, sclerae nonicteric Abdomen: Nontender, nondistended Extremities: No edema Neuro: Alert and oriented Results - Labs 03/26/20 05:31 03/26/20 05:31 Abnormal Lab Results - Last 24 Hours (Table) 03/26/20 03/26/20 Range/Units 05:31 05:31 RBC 2.97 L (4.30-5.90) m/uL Hgb 8.0 L (13.0-17.5) gm/dL Hct 25.5 L (39.0-53.0) % Carbon Dioxide 36.4 H (21.6-31.8) mmol/L BUN 30.0 H (9.0-27.0) mg/dL BUN/Creatinine Ratio 33.33 H (12.00-20.00) Ratio Glucose 111 H (70-110) mg/dL Calcium 8.5 L (8.7-10.3) mg/dL Microbiology - Last 24 Hours (Table) 03/19/20 14:46 Blood Culture - Final Blood No Growth after 144 hours 03/19/20 14:39 Blood Culture - Final Blood No Growth after 144 hours Diabetes panel 03/26/20 Range/Units 05:31 Sodium 145 (135-145) mmol/L Potassium 4.0 (3.5-5.5) mmol/L Chloride 103 (96-109) mmol/L Carbon Dioxide 36.4 H (21.6-31.8) mmol/L BUN 30.0 H (9.0-27.0) mg/dL Creatinine 0.9 (0.6-1.5) mg/dL Glucose 111 H (70-110) mg/dL Calcium 8.5 L (8.7-10.3) mg/dL Calcium panel 03/26/20 Range/Units 05:31 Calcium 8.5 L (8.7-10.3) mg/dL Pituitary panel 03/26/20 Range/Units 05:31 Sodium 145 (135-145) mmol/L Potassium 4.0 (3.5-5.5) mmol/L Chloride 103 (96-109) mmol/L Carbon Dioxide 36.4 H (21.6-31.8) mmol/L BUN 30.0 H (9.0-27.0) mg/dL Creatinine 0.9 (0.6-1.5) mg/dL Glucose 111 H (70-110) mg/dL Calcium 8.5 L (8.7-10.3) mg/dL Adrenal panel 03/26/20 Range/Units 05:31 Sodium 145 (135-145) mmol/L Potassium 4.0 (3.5-5.5) mmol/L Chloride 103 (96-109) mmol/L Carbon Dioxide 36.4 H (21.6-31.8) mmol/L BUN 30.0 H (9.0-27.0) mg/dL Creatinine 0.9 (0.6-1.5) mg/dL Glucose 111 H (70-110) mg/dL Calcium 8.5 L (8.7-10.3) mg/dL Assessment and Plan (1) Abnormal CT of the abdomen Narrative/Plan: 80-year-old male doing well at this time. No mass seen on recent CAT scan. No further intervention required from a surgical point of view. We'll sign off. Call if needed. Current Visit: Yes Status: Acute Code(s): R93.5 - ABN FINDINGS ON DX IMAGING OF ABD REGIONS, INC RETROPERITON SNOMED Code(s): 94105320597259960
--- NOTE | 2020-03-26 12:16 | P.PN ---
Subjective Progress Note Date: 03/26/20 Principal diagnosis: Sepsis, wound infection, urinary tract infection The patient is seen today 03/25/2020 in follow-up on the regular medical floor. He is currently resting fairly comfortably in bed. Awake and alert in no acute distress. Maintaining O2 saturations in the mid 90s on 3 L/m per nasal cannula. He is currently afebrile. Hemodynamically stable. We are consulted on this patient regarding an abnormal CAT scan which revealed a 1 cm nodule within the superior segment of the right lower lobe. There is also a stellate lesion in the superior segment of the left lower lobe measuring 9 mm. He is recommended outpatient PET scan and follow up with Dr. Linares. He does have significant chronic obstructive pulmonary disease with an FEV1 value 35% of predicted. He is maintained on home oxygen. He also has a history of congestive heart failure, atrial fibrillation, degenerative joint disease, hyperlipidemia. He has been having ongoing issues with wounds of the lower extremities with MRSA and pseudomonas aeruginosa in the right foot/ankle, infectious diseases on the case. White count 7.3. Hemoglobin 8.4. Sodium 142. Potassium 4.0. Creatinine 0.8. He remains on Symbicort, albuterol, antibiotics in the form of cefepime. Anticoagulated with Xarelto. The patient is seen today 03/26/2020 in follow-up on the regular medical floor. He is awake and alert in no acute distress. No worsening shortness of breath, cough or congestion. He did undergo EGD this morning and was found to have presbyesophagus esophagus, mild gastritis, prior Niesen fundoplication, small paraesophageal hernia. He is maintaining O2 saturations in the high 90s on 3 L/ m per nasal cannula. He remains afebrile. White count 7.4. Hemoglobin 8.0. Sodium 145. Potassium 4.0. Creatinine 0.9. He is continued on Symbicort, DuoNeb inhalations, antibiotics in the form of cefepime. Anticoagulated with Xarelto. Objective - Vital Signs Vital signs: Vital Signs Temp 98.3 F 03/26/20 08:00 Pulse 82 03/26/20 08:29 Resp 17 03/26/20 08:00 BP 90/54 03/26/20 08:00 Pulse Ox 99 03/26/20 08:00 Intake & Output 03/25/20 03/26/20 03/26/20 18:59 06:59 18:59 Intake Total 400 400 300 Output Total 850 1500 Balance -450 -1100 300 Intake: IV 300 Intake, IV Titration 400 100 Amount Cefepime 2 gm In Sodium 100 100 Chloride 0.9% 100 ml @ 25 mls/hr IVPB Q12HR JULISSA Rx #:[id number] Sodium Chloride 0.9% 1, 300 000 ml @ 75 mls/hr IV . [id number] JULISSA Rx#:[id number] Oral 300 Output: Urine 850 1500 Other: Voiding Method Indwelling Catheter Indwelling Catheter # Bowel Movements 1 1 - Exam Gen: This is a very pleasant 80-year-old male patient, resting comfortably in bed in bed, awake, alert and oriented 3, well-developed, well-nourished. Maint aining O2 saturations in the 90s on 3 L/m per nasal cannula HEENT: Head is atraumatic, normocephalic. Pupils equal, round. Sclerae is anicteric. NECK: Supple. No JVD. No lymphadenopathy. No thyromegaly. LUNGS: Diminished breath sounds at the bases with a few scattered rhonchi noted. HEART: S1, S2 are muffled ABDOMEN: Soft. Bowel sounds are present. No masses. No tenderness. EXTREMITIES: No pedal edema. No calf tenderness. Bilateral Unna boots noted as patient has right ankle ulcer NEUROLOGICAL: Patient is awake, alert and oriented x3. Diffusely weak Skin: Open wounds of the right ankle - Labs CBC & Chem 7: 03/26/20 05:31 03/26/20 05:31 Labs: Abnormal Lab Results - Last 24 Hours (Table) 03/26/20 03/26/20 Range/Units 05:31 05:31 RBC 2.97 L (4.30-5.90) m/uL Hgb 8.0 L (13.0-17.5) gm/dL Hct 25.5 L (39.0-53.0) % Carbon Dioxide 36.4 H (21.6-31.8) mmol/L BUN 30.0 H (9.0-27.0) mg/dL BUN/Creatinine Ratio 33.33 H (12.00-20.00) Ratio Glucose 111 H (70-110) mg/dL Calcium 8.5 L (8.7-10.3) mg/dL Microbiology - Last 24 Hours (Table) 03/19/20 14:46 Blood Culture - Final Blood No Growth after 144 hours 03/19/20 14:39 Blood Culture - Final Blood No Growth after 144 hours Assessment and Plan Assessment: 1 Sepsis secondary to pseudomonas aeruginosa pneumonia as well as MRSA and pseudomonas aeruginosa of the wound of the right foot 2 Acute on chronic hypoxic respiratory failure secondary to above 3 Bilateral lung nodules including a 1.0 cm superior segment lesion in the right lower lobe. 0.9 cm lesion in the superior segment of the left lower lobe 4 Suspected mass at the gastroesophageal junction measuring 4 cm however EGD on 03/26/2020 revealed small paraesophageal hernia, presbyesophagus, mild gastritis. Prior Sujit fundoplication 5 Severe chronic obstructive pulmonary disease his FEV1 value 35% of predicted, oxygen dependent 6 History of chronic tobacco dependence 7 History of congestive heart failure 8 History of hypertension 9 History of myocardial infarction 10 Degenerative joint disease 11 Chronic back pain 12 History of aspiration pneumonias 13 Coronary artery disease with previous bypass grafting 13 History of atrial fibrillation, anticoagulated with Xarelto Plan: The patient was seen and evaluated by Dr. Herrera Currently stable from the pulmonary standpoint Plan is for follow-up with a PET scan in the outpatient setting Antibiotics per ID services Probable home in the a.m. I, the cosigning physician, performed a history & physical examination of the patient. Lungs sounds with few scattered rhonchi. Maintaining good O2 saturations in the 90s on 3 L/m per nasal cannula. I discussed the assessment and plan of care with my nurse practitioner, Petra Rivera. I attest to the above note as dictated by her.
--- NOTE | 2020-03-26 16:20 | PN ---
PROGRESS NOTE DATE OF SERVICE: 03/26/2020 This 80-year-old gentleman who was admitted with Pseudomonas aeruginosa pneumonia also had significant ulcer with MRSA and Pseudomonas sepsis also. Patient on broad spectrum IV antibiotics. The patient is complaining of weakness also. Surgery has seen the patient for apparent gastric mass. The patient with intermittent dysphagia symptoms. EGD did not show acute abnormality. No fever. No cough. PAST MEDICAL HISTORY: Reviewed. REVIEW OF SYSTEMS: CARDIOVASCULAR: No angina. Respiration: As mentioned earlier. GI: As mentioned earlier. : No dysuria. NERVOUS SYSTEM: No numbness or weakness. CURRENT MEDICATIONS: Reviewed and include: Tylenol 1000 mg q.6 p.r.n., Ventolin, Lipitor, Symbicort, Cefepime, vitamin B12, Pepcid, Lasix. Doses are reviewed. PHYSICAL EXAM: Patient is alert, oriented x3. Pulse 85. Blood pressure 90/54. Respirations 17, temperature 98.2, pulse ox 98% on 3 L. HEENT is conjunctivae normal. Neck is no JVD. Cardiovascular systems: S1, S2 muffled. Respiration: Breath sounds diminished in the bases. Bilateral scattered rhonchi and crackles. ABDOMEN: Soft. Nontender. LEGS: No edema. No swelling. Nervous system: Higher functions as mentioned earlier. Moves all 4 limbs. No focal motor or sensory deficits. SKIN: No ulcer, no rash or bleeding. Joints: No active deforming arthropathy. LABS: At this time shows: WBC 7.5, hemoglobin is 8, sodium 140, potassium 4, calcium is 8.5. ASSESSMENT: 1. Pseudomonas aeruginosa pneumonia, possibly gram-negative pneumonia, sepsis, present on admission. 2. Right foot ulcer with possible MRSA and Pseudomonas sepsis. 3. Left wrist, elbow, shoulder arthritis, possibly pseudogout. 4. Mass in the GE junction reported but negative mass per surgery. 5. Possible bilateral interstitial pneumonia versus fibrosis. 6. Left upper chest pain secondary to left extremity pain. 7. History of lung nodules. 8. History of atrial fibrillation, chronic. 9. Elevated lactic acid possibly secondary to sepsis present on admission. 10.History of congestive heart failure, ejection fraction unknown. 11.History of chronic obstructive pulmonary disease. 12.Gait dysfunction. 13.Hypertension. 14.History of myocardial infarction. 15.History of degenerative joint disease. 16.History of pneumonia. 17.History of hypothyroidism. 18.History of breast mass. 19.History of colonic polyps. 20.History of back surgery. 21.History of coronary artery disease, coronary artery bypass grafting. 22.Remote history of nicotine dependence. 23.FULL CODE. RECOMMENDATIONS AND DISCUSSION: Recommend to continue current medications, management and symptomatic treatment. Otherwise, at this time, I recommend continue with current antibiotics and closely follow. Symptomatic treatment. Reduce the dose of metoprolol to 12.5 mg b.i.d. for relative hypotension. PT/OT evaluation. Had a discussion with Tamia the daughter last week and recommended possible ECF rehab once the patient is stabilized. Dr. Abraham will follow. MMGREGORIOL / IJN: [id number] / HEVER
[2020-03-26] MEDS: ATORVASTATIN 40 MG TAB PO SCH (20:51)
[2020-03-26] MEDS: METOPROLOL TARTRATE 12.5 MG TAB PO SCH (20:51)
--- NOTE | 2020-03-26 22:35 | PN ---
PROGRESS NOTE DATE OF SERVICE: 03/26/2020 REASON FOR FOLLOWUP: Pseudomonas pneumonia. INTERVAL HISTORY: Patient is currently afebrile. The patient is feeling better. Breathing comfortably. Patient denies having any chest pain. No shortness of breath or cough. No abdominal pain or diarrhea. PHYSICAL EXAMINATION: Blood pressure is 108/47, pulse of 90, temperature 98.9. He is 96% on 2 L nasal cannula. General description is an elderly male lying in bed in no distress. Respiratory system: Unlabored breathing, decreased intensity in breath sounds. No wheeze. Heart S1, S2. Regular rate and rhythm. Abdomen soft, no tenderness. Right lateral ankle wound with no slough tissue. No surrounding redness or any drainage. LABS: Hemoglobin is 8, white count 7.4, BUN of 30, creatinine 0.9. DIAGNOSTIC IMPRESSION AND PLAN: 1. Patient with Pseudomonas aeruginosa pneumonia in this patient currently covered with cefepime 2 g q12h to continue while inpatient. Has received about a week of IV antibiotic therapy. May be able to finish therapy with oral Cipro and continue supportive care. 2. Patient with wound to the right lateral ankle and sacral wound. Continue local wound care as ordered. MMODL / IJN: [id number] / MTDD
[2020-03-27] MEDS: SODIUM CHLORIDE 0.9% 1,000 ML IV SCH ×2 (05:26→20:23)
[2020-03-27] MEDS: oxyCODONE-APAP 10-325MG 1 EACH TAB PO PRN ×2 (05:56→14:23)
[2020-03-27] MEDS: SYMBICORT 80-4.5 MCG INHALER INHALATION SCH ×2 (08:12→19:18)
[2020-03-27] MEDS: IPRATROPIUM-ALBUTEROL 3 ML NEB INHALATION SCH ×4 (08:12→19:17)
[2020-03-27] MEDS: ASCORBIC ACID 500 MG TAB PO SCH (08:35)
[2020-03-27] MEDS: CHOLECALCIFEROL 1,000 UNIT TAB PO SCH (08:35)
[2020-03-27] MEDS: MULTIVITAMINS, THERA 1 EACH TAB PO SCH (08:35)
[2020-03-27] MEDS: LIDOCAINE 5% PATCH TOPICAL SCH (08:36)
[2020-03-27] MEDS: FUROSEMIDE 40 MG TAB PO SCH ×2 (08:36→20:19)
[2020-03-27] MEDS: METOPROLOL TARTRATE 12.5 MG TAB PO SCH ×2 (08:36→20:19)
[2020-03-27] MEDS: FAMOTIDINE 20 MG TAB PO SCH ×2 (08:36→20:19)
[2020-03-27] MEDS: CYANOCOBALAMIN 500 MCG TAB PO SCH (08:36)
[2020-03-27] MEDS: GABAPENTIN 300 MG CAP PO SCH ×2 (08:36→20:19)
[2020-03-27] MEDS: PANTOPRAZOLE 40 MG TABLET PO SCH (08:36)
[2020-03-27] MEDS: CALCIUM CARBONATE 500 MG CHEWABLE PO SCH (08:36)
[2020-03-27] MEDS: COLLAGENASE 250 UNIT/GM OINTMENT 30 GM TUBE TOPICAL SCH (08:37)
[2020-03-27] MEDS: RIVAROXABAN 20 MG TAB PO SCH (08:37)
[2020-03-27] MEDS ORDERED: CIPROFLOXACIN HCL 500 MG TAB PO SCH (10:15)
--- NOTE | 2020-03-27 11:08 | P.DS ---
Providers Date of admission: 03/19/20 15:11 Expected date of discharge: 03/27/20 Attending physician: Adams Abraham Consults: 03/19/20 14:25 Consult Physician Urgent Consulting Provider: Niko Fontenot Consult Reason/Comments: sepsis Do you want consulting provider notified?: Yes 03/20/20 09:30 Consult Physician Urgent Consulting Provider: Darinel Dominguez Consult Reason/Comments: Left shoulder/arm, bilat lower extremity pain Do you want consulting provider notified?: Yes 03/22/20 09:15 Consult Physician Urgent Consulting Provider: Deacon Leonardo Consult Reason/Comments: hx of a-fib, run of 6 Do you want consulting provider notified?: Yes 03/23/20 14:59 Consult Physician Routine Consulting Provider: Jame Herrera Consult Reason/Comments: lung nodule Do you want consulting provider notified?: Yes 03/25/20 10:09 Consult Physician Routine Consulting Provider: Evelyne Mullins Consult Reason/Comments: ? stomach mass Do you want consulting provider notified?: Yes 03/25/20 14:10 Consult Physician Routine Consulting Provider: Abel Ocampo Consult Reason/Comments: abnormal ct abdomen ge junction mass?? Do you want consulting provider notified?: Yes Primary care physician: Adams Abraham Hospital Course: Final Diagnoses: Sepsis secondary to pseudomonas aeruginosa pneumonia and MRSA with pseudomonas aeruginosa of chronic right foot wound , chronic stage II sacral pressure ulcer. Acute on chronic hypoxic respiratory failure secondary to the above, in a patient with severe COPD. Bilateral lung nodules, outpatient PET scan with pulmonary recommended Possible mass at the GE junction, however EGD reported no apparent mass,small paraesophageal hernia, presbyesophagus, mild gastritis. History of Sujit fundoplication CAD, history of MT, CABG Chronic atrial fibrillation, anticoagulated with Xarelto Chronic CHF, EF currently unknown Hypertension Hypothyroidism Degenerative joint disease Chronic back pain History of nicotine dependence Hospital course: This is an 80-year-old gentleman admitted with Pseudomonas aeruginosa pneumonia, right lateral ankle wound with MRSA and pseudomonas aeruginosa and multiple other medical issues. Evaluated/treated by multiple consults. Maintained on IV antibiotics of cefepime and wound care as per infectious disease. Possible mass suggested on abdominal CT, evaluated by surgery. Completed EGD with GI reporting no apparent gastric mass, small recurrent hernia ,mild gastritis. T-max 99.9, normal WBC. Patient has been cleared by all consults for discharge. Patient will be discharged to [facility] rehab pending final DC recommendations/antibiotics from ID. Microbiology 03/19/20 14:46 Blood Blood Culture - Final No Growth after 144 hours 03/19/20 14:39 Blood Blood Culture - Final No Growth after 144 hours 03/20/20 14:43 Knee - Left Anaerobic Culture - Final 03/19/20 15:59 Foot - Right Anaerobic Culture - Final 03/20/20 14:43 Knee - Left Gram Stain - Final 03/20/20 14:43 Knee - Left Wound Culture - Final 03/20/20 04:21 Sputum Gram Stain - Final 03/20/20 04:21 Sputum Sputum Culture - Final Pseudomonas aeruginosa 03/19/20 15:59 Foot - Right Gram Stain - Final 03/19/20 15:59 Foot - Right Wound Culture - Final Methicillin resist S. aureus Pseudomonas aeruginosa 03/20/20 14:43 Knee - Left Fungal Culture - Preliminary The impression and plan of care has been dictated as directed. : I performed a history and examination of this patient, discussed the same with the dictator. I agree with the dictator's note ,documented as a scribe. Any additional findings or plans will be noted. Patient Condition at Discharge: Stable Plan - Discharge Summary Discharge Rx Participant: Yes New Discharge Prescriptions: New Metoprolol Tartrate [Lopressor] 12.5 mg PO BID tab Famotidine [Pepcid] 20 mg PO Q12HR tab Continue Rivaroxaban [Xarelto] 20 mg PO DAILY Furosemide 40 mg PO BID Fluticasone/Salmeterol [Advair 250-50 Diskus] 1 puff INHALATION RT-BID Tiotropium 18 Mcg/Puff [Spiriva] 1 cap INHALATION RT-DAILY Atorvastatin [Lipitor] 40 mg PO HS Multivitamin [Men's Multi-Vitamin] 1 tab PO DAILY Albuterol Sulfate [Ventolin HFA] 2 puff INHALATION RT-QID PRN PRN Reason: Shortness Of Breath Ipratropium-Albuterol Nebulize [Duoneb 0.5 mg-3 mg/3 ml Soln] 3 ml INHALATION RT-QID Acetaminophen Tab [Tylenol] 650 mg PO Q6HR PRN tab PRN Reason: Mild Pain Or Fever > 100.5 Cyanocobalamin (Vitamin B-12) [Vitamin B-12] 1,000 mcg PO DAILY Cholecalciferol [Vitamin D3 (25 Mcg = 1000 Iu)] 1,000 unit PO DAILY Ascorbic Acid [Vitamin C] 1,000 mg PO DAILY Calcium Carbonate [Calcium] 600 mg PO DAILY Gabapentin 600 mg PO BID #6 tab oxyCODONE HCL/ACETAMINOPHEN [Percocet 10-325 mg] 1 tab PO TID PRN #9 tab PRN Reason: Pain Discontinued Metoprolol Tartrate [Lopressor] 25 mg PO BID Digoxin [Lanoxin] 125 mcg PO DAILY tab Nitrofurantoin Monohyd/M-Cryst [Macrobid] 100 mg PO BID Discharge Medication List Rivaroxaban [Xarelto] 20 mg PO DAILY 08/06/13 [History] Furosemide 40 mg PO BID 08/09/13 [History] Fluticasone/Salmeterol [Advair 250-50 Diskus] 1 puff INHALATION RT-BID 08/18/14 [History] Tiotropium 18 Mcg/Puff [Spiriva] 1 cap INHALATION RT-DAILY 08/18/14 [History] Atorvastatin [Lipitor] 40 mg PO HS 01/20/18 [History] Multivitamin [Men's Multi-Vitamin] 1 tab PO DAILY 01/20/18 [History] Albuterol Sulfate [Ventolin HFA] 2 puff INHALATION RT-QID PRN 11/22/19 [History] Ipratropium-Albuterol Nebulize [Duoneb 0.5 mg-3 mg/3 ml Soln] 3 ml INHALATION RT-QID 11/22/19 [History] Acetaminophen Tab [Tylenol] 650 mg PO Q6HR PRN tab 01/11/20 [Rx] Ascorbic Acid [Vitamin C] 1,000 mg PO DAILY 03/19/20 [History] Calcium Carbonate [Calcium] 600 mg PO DAILY 03/19/20 [History] Cholecalciferol [Vitamin D3 (25 Mcg = 1000 Iu)] 1,000 unit PO DAILY 03/19/20 [History] Cyanocobalamin (Vitamin B-12) [Vitamin B-12] 1,000 mcg PO DAILY 03/19/20 [History] Famotidine [Pepcid] 20 mg PO Q12HR tab 03/27/20 [Rx] Gabapentin 600 mg PO BID #6 tab 03/27/20 [Rx] Metoprolol Tartrate [Lopressor] 12.5 mg PO BID tab 03/27/20 [Rx] oxyCODONE HCL/ACETAMINOPHEN [Percocet 10-325 mg] 1 tab PO TID PRN #9 tab 03/27/20 [Rx] Follow up Appointment(s)/Referral(s): [facility], [NON-STAFF] - 1-2 Days Adams Abraham DO [Primary Care Provider] - 1 Week (After DC from subacute rehab) [facility] [NON-STAFF] - 1 Week (please call to make appointmen to follow up in wound care center upon discharge from the hospital) Katty Linares MD [STAFF PHYSICIAN] - 1 Week Activity/Diet/Wound Care/Special Instructions: [facility] subacute rehab CBC, BMP in 3 days DC antibiotics as per ID Wound care: for sacral ulcer and wound to right ankle apply Santyl daily, cover sacrum with optifoam, cover right ankle with gauze. Offload left heel Outpatient PET scan as per pulmonary
--- NOTE | 2020-03-27 12:03 | P.PN ---
Subjective Progress Note Date: 03/27/20 CHIEF COMPLAINT: Pneumonia HISTORY OF PRESENT ILLNESS: Patient is being followed for concerns about possi ble gastric mass. He had computed tomography scan of the abdomen and pelvis which demonstrated a possible mass at the GE junction. Patient underwent endoscopy with Dr. Erica samanigeo which showed a small recurrent hernia but no mass. Patient denies any difficulty with swallowing. Afebrile. He is s cheduled for discharge today. PHYSICAL EXAM: VITAL SIGNS: Reviewed. GENERAL: Well-developed in no acute distress. HEENT: No sclera icterus. Extraocular movements grossly intact. Moist buccal mucosa. Head is atraumatic, normocephalic. ABDOMEN: Soft. Nondistended. Nontender. NEUROLOGIC: Alert and oriented. Cranial nerves II through XII grossly intact. ASSESSMENT: 1. Abnormal computed tomography scan of the abdomen with concerns of masses or GE junction. Patient had endoscopy with no evidence of mass but did show a recurrent hiatal hernia. PLAN: -Continue current diet -Patient is stable for discharge from surgical standpoint. Physician Coil Tier note has been reviewed by physician. Signing provider agrees with the documented findings, assessment, and plan of care. Objective - Vital Signs Vital signs: Vital Signs Temp 98.0 F 03/27/20 08:00 Pulse 64 03/27/20 08:33 Resp 20 03/27/20 08:00 BP 107/57 03/27/20 08:33 Pulse Ox 95 03/27/20 08:12 Intake & Output 03/26/20 03/27/20 03/27/20 18:59 06:59 18:59 Intake Total 300 Output Total 750 2200 Balance -450 -2200 Weight 75.75 kg Intake: IV 300 Output: Urine 750 2200 Other: Voiding Method Indwelling Catheter Indwelling Catheter Indwelling Catheter # Bowel Movements 1 - Labs CBC & Chem 7: 03/26/20 05:31 03/26/20 05:31
--- NOTE | 2020-03-27 13:07 | PN ---
PROGRESS NOTE DATE OF SERVICE: 03/27/2020 REASON FOR FOLLOWUP: Pseudomonas pneumonia. INTERVAL HISTORY: The patient is currently afebrile. The patient is breathing comfortably. The patient denies having any chest pain. No shortness of breath or cough. No abdominal pain. No diarrhea. No pain to the right heel area. PHYSICAL EXAMINATION: Blood pressure 107/57 with pulse of 64, temperature is 98. He is 95% on 3 L nasal cannula. General description is an elderly male lying in bed in no distress. RESPIRATORY SYSTEM: Unlabored breathing, decreased breath sounds at bases. No wheeze. HEART: S1, S2. Regular rate and rhythm. ABDOMEN: Soft, no tenderness. LABS: No new labs have been obtained today. DIAGNOSTIC IMPRESSION AND PLAN: Patient admitted to the hospital with sepsis, source of pneumonia. Sputum has been Pseudomonas. Antibiotic switched to Cipro should be 750 mg twice a day for another week and continue with supportive care. MMODL / IJN: [id number] /
--- NOTE | 2020-03-27 14:58 | P.PN ---
Subjective Progress Note Date: 03/27/20 Principal diagnosis: Sepsis, wound infection, urinary tract infection The patient is seen today 03/25/2020 in follow-up on the regular medical floor. He is currently resting fairly comfortably in bed. Awake and alert in no acute distress. Maintaining O2 saturations in the mid 90s on 3 L/m per nasal cannula. He is currently afebrile. Hemodynamically stable. We are consulted on this patient regarding an abnormal CAT scan which revealed a 1 cm nodule within the superior segment of the right lower lobe. There is also a stellate lesion in the superior segment of the left lower lobe measuring 9 mm. He is recommended outpatient PET scan and follow up with Dr. Linares. He does have significant chronic obstructive pulmonary disease with an FEV1 value 35% of predicted. He is maintained on home oxygen. He also has a history of congestive heart failure, atrial fibrillation, degenerative joint disease, hyperlipidemia. He has been having ongoing issues with wounds of the lower extremities with MRSA and pseudomonas aeruginosa in the right foot/ankle, infectious diseases on the case. White count 7.3. Hemoglobin 8.4. Sodium 142. Potassium 4.0. Creatinine 0.8. He remains on Symbicort, albuterol, antibiotics in the form of cefepime. Anticoagulated with Xarelto. The patient is seen today 03/26/2020 in follow-up on the regular medical floor. He is awake and alert in no acute distress. No worsening shortness of breath, cough or congestion. He did undergo EGD this morning and was found to have presbyesophagus esophagus, mild gastritis, prior Niesen fundoplication, small paraesophageal hernia. He is maintaining O2 saturations in the high 90s on 3 L/ m per nasal cannula. He remains afebrile. White count 7.4. Hemoglobin 8.0. Sodium 145. Potassium 4.0. Creatinine 0.9. He is continued on Symbicort, DuoNeb inhalations, antibiotics in the form of cefepime. Anticoagulated with Xarelto. On 03/27/2020 patient seen in follow-up on medical floor. He is currently on 3 L of oxygen and a pulse ox of 95%, he was tested for COVID 19 twice and was n egative both times, he denies worsening dyspnea, he did have some low-grade fevers intermittently. With a T-max of 99.9F in the last 24 hours. Denies any hemoptysis, denies any chest pain, no cough, no nausea vomiting no abdominal pain, no diarrhea. His sputum culture was positive for pseudomonas aeruginosa and patient had been on cefepime recommendation from the ID service to switch it to ciprofloxacin after discharge. His right foot wound culture was also positive for pseudomonas and MRSA. ID service has been following. Objective - Vital Signs Vital signs: Vital Signs Temp 99.6 F 03/27/20 13:44 Pulse 83 03/27/20 13:44 Resp 20 03/27/20 13:44 BP 105/39 03/27/20 13:44 Pulse Ox 96 03/27/20 13:44 Intake & Output 03/26/20 03/27/20 03/27/20 18:59 06:59 18:59 Intake Total 300 Output Total 750 2200 Balance -450 -2200 Weight 75.75 kg Intake: IV 300 Output: Urine 750 2200 Other: Voiding Method Indwelling Catheter Indwelling Catheter Indwelling Catheter # Bowel Movements 1 - Exam GENERAL EXAM: Alert, very pleasant, 80-year-old white male, 3 L of oxygen with pulse ox 96%, comfortable in no apparent distress. HEAD: Normocephalic/atraumatic. EYES: Normal reaction of pupils, equal size. Conjunctiva pink, sclera white. NOSE: Clear with pink turbinates. THROAT: No erythema or exudates. NECK: No masses, no JVD, no thyroid enlargement, no adenopathy. CHEST: No chest wall deformity. Symmetrical expansion. LUNGS: Equal air entry with diminished breath sounds at the bases, but no wheeze, rhonchi or dullness. CVS: Regular rate and rhythm, normal S1 and S2, no gallops, no murmurs, no rubs ABDOMEN: Soft, nontender. No hepatosplenomegaly, normal bowel sounds, no guarding or rigidity. EXTREMITIES: No clubbing, no edema, no cyanosis, 2+ pulses and upper and lower extremities. Patient has right foot wound which is covered with dressing MUSCULOSKELETAL: Muscle strength and tone normal. SPINE: No scoliosis or deformity SKIN: No rashes CENTRAL NERVOUS SYSTEM: Alert and oriented -3. No focal deficits, tone is normal in all 4 extremities. PSYCHIATRIC: Alert and oriented -3. Appropriate affect. Intact judgment and insight. - Labs CBC & Chem 7: 03/26/20 05:31 03/26/20 05:31 Assessment and Plan Plan: Assessment: 1 Sepsis secondary to pseudomonas aeruginosa pneumonia as well as MRSA and pseudomonas aeruginosa of the wound of the right foot 2 Acute on chronic hypoxic respiratory failure secondary to above 3 Bilateral lung nodules including a 1.0 cm superior segment lesion in the right lower lobe. 0.9 cm lesion in the superior segment of the left lower lobe 4 Suspected mass at the gastroesophageal junction measuring 4 cm however EGD on 03/26/2020 revealed small paraesophageal hernia, presbyesophagus, mild gastritis. Prior Sujit fundoplication 5 Severe chronic obstructive pulmonary disease his FEV1 value 35% of predicted, oxygen dependent 6 History of chronic tobacco dependence 7 History of congestive heart failure 8 History of hypertension 9 History of myocardial infarction 10 Degenerative joint disease 11 Chronic back pain 12 History of aspiration pneumonias 13 Coronary artery disease with previous bypass grafting 13 History of atrial fibrillation, anticoagulated with Xarelto Plan: Patient will be switched to ciprofloxacin per ID service recommendations, no worsening dyspnea, doing well, vital signs have been stable, patient is going home today, he will follow-up with Dr. Linares in the pulmonary clinic after his discharge. I performed a history & physical examination of the patient and discussed their management with my nurse practitioner, Ele Brown. I reviewed the nurse practitioner's note and agree with the documented findings and plan of care. Lung sounds are positive for diminished breath sounds at the bases The findings and the impression was discussed with the patient. I attest to the documentation by the nurse practitioner. Time with Patient: Less than 30
--- NOTE | 2020-03-27 17:34 | P.PN ---
Subjective Progress Note Date: 03/27/20 Principal diagnosis: Abnormal computed tomography scan of abdomen, pneumonia There is a pleasant 80-year-old male was seen and evaluated sitting up at the bedside. The patient underwent an upper endoscopy with Dr. Nelson yesterday for evaluation of a possible mass at the GE junction that was found on a CT scan of the abdomen. Patient has also had a history of hiatal hernia, and a previous EGD with balloon dilation. Patient currently denies any difficulty with swallowing, however states that at sometimes he does have difficulty with swallowing and has to cough it back up or take a drink to get his food down. He denies any abdominal pain, nausea, or vomiting. Objective - Vital Signs Vital signs: Vital Signs Temp 98.0 F 03/27/20 08:00 Pulse 85 03/27/20 13:01 Resp 20 03/27/20 08:00 BP 107/57 03/27/20 08:33 Pulse Ox 95 03/27/20 08:12 Intake & Output 03/26/20 03/27/20 03/27/20 18:59 06:59 18:59 Intake Total 300 Output Total 750 2200 Balance -450 -2200 Weight 75.75 kg Intake: IV 300 Output: Urine 750 2200 Other: Voiding Method Indwelling Catheter Indwelling Catheter Indwelling Catheter # Bowel Movements 1 - Exam General appearance: The patient is alert, oriented, in no acute distress. HET: Head is normocephalic and atraumatic. Conjunctiva pink. Sclera anicteric. Neck: Supple without lymphadenopathy. Abdomen: Soft, nontender, nondistended with bowel sounds. No guarding or rigidity. Extremities: Normal skin color and turgor. No pedal edema Neurological: No focal deficits. Alert and oriented 3. - Labs CBC & Chem 7: 03/26/20 05:31 03/26/20 05:31 Assessment and Plan (1) Abnormal CT of the abdomen Narrative/Plan: This is an 80-year-old male with multiple medical comorbid morbidities including being treated for Pseudomonas pneumonia, decubitus ulcer and cellulitis. He had a CT scan of the abdomen performed for evaluation which showed possible mass at the gastroesophageal junction. On questioning the patient he did report intermittent solid food dysphagia. He states he is status post hiatal hernia repair about 5 years ago, and subsequently has required EGD with dilation on 2 occasions. Unclear of computed tomography scan findings are related to prior hiatal hernia repair, esophagitis, esophageal mass or other etiology. Patient underwent upper endoscopy yesterday which showed mild gastritis, presbyesophagus, prior Sujit fundoplication, and a small para esophageal hernia. There is no further plans for any endoscopy at this time. Current Visit: Yes Status: Acute Code(s): R93.5 - ABN FINDINGS ON DX IMAGING OF ABD REGIONS, INC RETROPERITON SNOMED Code(s): 52624655882348272 (2) Esophageal dysphagia Current Visit: Yes Status: Acute Code(s): R13.10 - DYSPHAGIA, UNSPECIFIED SNOMED Code(s): 88327887 Plan: 1. Supportive care 2. Diet as tolerated 3. Patient status post upper endoscopy, with no further plans for further endoscopy at this time 4. Continue with medical management 5. Thank you for this consultation we will sign off at this time Dr. Luis Mullins I agree with the dictator's note, documented as a scribe by Cassandra Palmer.
[2020-03-27] MEDS: ATORVASTATIN 40 MG TAB PO SCH (20:19)
[2020-03-27] MEDS: CIPROFLOXACIN HCL 250 MG TAB PO SCH (20:20)
[2020-03-28] MEDS: IPRATROPIUM-ALBUTEROL 3 ML NEB INHALATION SCH ×4 (07:23→20:29)
[2020-03-28] MEDS: SYMBICORT 80-4.5 MCG INHALER INHALATION SCH ×2 (07:24→20:29)
[2020-03-28 08:11] VITALS: RESP 22
[2020-03-28] MEDS: SODIUM CHLORIDE 0.9% 1,000 ML IV SCH (09:13)
[2020-03-28] MEDS: oxyCODONE-APAP 10-325MG 1 EACH TAB PO PRN ×2 (09:22→16:27)
[2020-03-28] MEDS: LIDOCAINE 5% PATCH TOPICAL SCH (09:22)
[2020-03-28] MEDS: GABAPENTIN 300 MG CAP PO SCH (09:23)
[2020-03-28] MEDS: CIPROFLOXACIN HCL 250 MG TAB PO SCH (09:23)
[2020-03-28] MEDS: ASCORBIC ACID 500 MG TAB PO SCH (09:23)
[2020-03-28] MEDS: METOPROLOL TARTRATE 12.5 MG TAB PO SCH (09:23)
[2020-03-28] MEDS: FUROSEMIDE 40 MG TAB PO SCH (09:23)
[2020-03-28] MEDS: CALCIUM CARBONATE 500 MG CHEWABLE PO SCH (09:23)
[2020-03-28] MEDS: MULTIVITAMINS, THERA 1 EACH TAB PO SCH (09:23)
[2020-03-28] MEDS: CYANOCOBALAMIN 500 MCG TAB PO SCH (09:24)
[2020-03-28] MEDS: RIVAROXABAN 20 MG TAB PO SCH (09:24)
[2020-03-28] MEDS: COLLAGENASE 250 UNIT/GM OINTMENT 30 GM TUBE TOPICAL SCH (09:24)
[2020-03-28] MEDS: FAMOTIDINE 20 MG TAB PO SCH (09:24)
[2020-03-28] MEDS: CHOLECALCIFEROL 1,000 UNIT TAB PO SCH (09:24)
[2020-03-28] MEDS: PANTOPRAZOLE 40 MG TABLET PO SCH (09:24)
--- NOTE | 2020-03-28 10:19 | P.PN ---
Subjective Progress Note Date: 03/28/20 CHIEF COMPLAINT: Pneumonia HISTORY OF PRESENT ILLNESS: Patient is being followed for concerns about possi ble gastric mass. He had computed tomography scan of the abdomen and pelvis which demonstrated a possible mass at the GE junction. Patient underwent endoscopy with Dr. Barnett which showed a small recurrent hiatal hernia but no mass. Patient denies any difficulty with swallowing. Afebrile. He is scheduled for discharge today. PHYSICAL EXAM: VITAL SIGNS: Reviewed. GENERAL: Well-developed in no acute distress. HEENT: No sclera icterus. Extraocular movements grossly intact. Moist buccal mucosa. Head is atraumatic, normocephalic. ABDOMEN: Soft. Nondistended. Nontender. NEUROLOGIC: Alert and oriented. Cranial nerves II through XII grossly intact. ASSESSMENT: 1. Abnormal computed tomography scan of the abdomen with concerns of masses or GE junction. Patient had endoscopy with no evidence of mass but did show a recurrent hiatal hernia. PLAN: -Continue current diet -Patient is stable for discharge from surgical standpoint. Physician Wringer [employer] Setter note has been reviewed by physician. Signing provider agrees with the documented findings, assessment, and plan of care. Objective - Vital Signs Vital signs: Vital Signs Temp 98.0 F 03/28/20 08:00 Pulse 77 03/28/20 08:00 Resp 22 03/28/20 08:00 BP 95/54 03/28/20 08:00 Pulse Ox 100 03/28/20 08:00 Intake & Output 03/27/20 03/28/20 03/28/20 18:59 06:59 18:59 Intake Total 320 Output Total 1000 900 Balance -1000 -580 Intake: Oral 320 Output: Urine 1000 900 Uretheral (Bowman) 900 Other: Voiding Method Indwelling Catheter Indwelling Catheter # Bowel Movements 1 - Labs CBC & Chem 7: 03/26/20 05:31 03/26/20 05:31
[2020-03-28 15:35] VITALS: BP 103/46; TEMP 98.3
[2020-03-28 15:54] VITALS: PULSE 72
--- NOTE | 2020-03-28 16:30 | PN ---
PROGRESS NOTE DATE OF SERVICE: 03/28/2020 REASON FOR FOLLOWUP: Pseudomonas pneumonia. INTERVAL HISTORY: The patient is currently afebrile. The patient is breathing comfortably. Denies having any chest pain. Occasional cough with sputum. No nausea. No vomiting. No abdominal pain. Denies pain to the right lateral ankle wound area. PHYSICAL EXAMINATION: Blood pressure 95/54 with a pulse of 77, temperature 98. He is 100% on 3 L nasal cannula. General description is an elderly male lying in bed in no distress. RESPIRATORY SYSTEM: Unlabored breathing. Clear to auscultation anteriorly. HEART: S1, S2. Regular rate and rhythm. ABDOMEN: Soft. No tenderness. LABS: No new labs have been obtained today. DIAGNOSTIC IMPRESSION AND PLAN: 1. Patient admitted to hospital with sepsis, source likely Pseudomonas pneumonia. Received more than a week of IV and is currently on oral Cipro; continue for another week to finish course of therapy. 2. The patient did have aspirate from the left knee, which has been negative. 3. Right lateral ankle wound with a culture did grow Pseudomonas and MRSA. However, the wound looks superficial, with no surrounding cellulitis, likely colonization, and no need for any systemic antibiotic therapy for the same. Call was made to his daughter; 15 minutes of time was spent with her on the phone, explaining all the cultures, and all questions were answered in layman's terms. MMODL / IJN: [id number] / HEVER
== END 2020-03-28 22:34 | DRG 871 ==
LOC: EC 13:19 → 4SSUR 15:11
PROVIDERS: ADMIT Family Medicine; ATTEND Family Medicine
PROC: 0S9D3ZZ Drainage of Left Knee Joint, Percutaneous Approach (ICD-10-PCS; principal; 2020-03-20)
PROC: 0DJ08ZZ Inspection of Upper Intestinal Tract, Via Natural or Artificial Opening Endoscopic (ICD-10-PCS; 2020-03-26)
DX: A41.52 Sepsis due to Pseudomonas (principal); J15.6 Pneumonia due to other Gram-negative bacteria; J96.21 Acute and chronic respiratory failure with hypoxia; J15.1 Pneumonia due to Pseudomonas; J44.1 Chronic obstructive pulmonary disease with (acute) exacerbation; J84.9 Interstitial pulmonary disease, unspecified; L03.115 Cellulitis of right lower limb; J44.0 Chronic obstructive pulmonary disease with (acute) lower respiratory infection; N39.0 Urinary tract infection, site not specified; I48.20 Chronic atrial fibrillation, unspecified; A41.02 Sepsis due to Methicillin resistant Staphylococcus aureus; E78.5 Hyperlipidemia, unspecified; E03.9 Hypothyroidism, unspecified; E86.0 Dehydration; Z20.822 Contact with and (suspected) exposure to COVID-19; I25.10 Atherosclerotic heart disease of native coronary artery without angina pectoris; I11.0 Hypertensive heart disease with heart failure; Z96.643 Presence of artificial hip joint, bilateral; M19.049 Primary osteoarthritis, unspecified hand; M19.022 Primary osteoarthritis, left elbow; M19.012 Primary osteoarthritis, left shoulder; K44.9 Diaphragmatic hernia without obstruction or gangrene; M25.462 Effusion, left knee; R13.14 Dysphagia, pharyngoesophageal phase; R91.1 Solitary pulmonary nodule; K29.70 Gastritis, unspecified, without bleeding; K22.8 Other specified diseases of esophagus; G62.9 Polyneuropathy, unspecified; G89.29 Other chronic pain; K31.9 Disease of stomach and duodenum, unspecified; K59.00 Constipation, unspecified; L89.152 Pressure ulcer of sacral region, stage 2; I50.9 Heart failure, unspecified; Z99.81 Dependence on supplemental oxygen; Z95.1 Presence of aortocoronary bypass graft; Z87.891 Personal history of nicotine dependence; Z87.19 Personal history of other diseases of the digestive system; Z87.01 Personal history of pneumonia (recurrent); Z86.14 Personal history of Methicillin resistant Staphylococcus aureus infection; Z79.899 Other long term (current) drug therapy; Z79.01 Long term (current) use of anticoagulants; Z87.440 Personal history of urinary (tract) infections; Z98.890 Other specified postprocedural states; Z80.9 Family history of malignant neoplasm, unspecified; I25.2 Old myocardial infarction; Z98.42 Cataract extraction status, left eye; Z98.41 Cataract extraction status, right eye
CPT/HCPCS: 36415; 43235; 71045; 71046; 71275; 74176; 80048; 80053; 80162; 80202; 81001; 82565; 82728; 83605; 83615; 83735; 84132; 84145; 84484; 84550; 85025; 85379; 85610; 85730; 86140; 87040; 87070; 87075; 87077; 87102; 87186; 87205; 87635; 89050; 89060; 93005; 94640; 94760; 96365; 99291

== ENCOUNTER 2020-04-02 17:18 | Inpatient (IN) | payer MEDICARE ==
[2020-04-02] MEDS ORDERED: SODIUM CHLORIDE 0.9% 500 ML 500 ML IV STA (17:55)
[2020-04-02] MEDS ORDERED: ACETAMINOPHEN TAB 500 MG TAB PO STA (17:57)
[2020-04-02] MEDS ORDERED: fentaNYL (PF) 50 MCG/ML 2 ML AMP IVP STA (17:58)
--- NOTE | 2020-04-02 18:04 | ED ---
Altered Mental Status HPI - General Chief Complaint: Altered Mental Status Stated Complaint: altered Time Seen by Provider: 04/02/20 17:28 Source: EMS Limitations: physical limitation - History of Present Illness Initial Comments: Patient is an 80-year-old male with past history of A. fib on anticoagulation, COPD, lower extremity cellulitis with bacteremia who presents to the emergency department from [facility]. Report that comes with the patient states that he fainted while being transferred from the bathroom. Denied having a fall or injury. The patient also has had elevated temps for the past 5 days. He was tested and found to be positive for Covid. His saturations have been anywhere from the low 50s to 88 on 3 L. Patient denies wearing oxygen at baseline. He was just recently discharged from hospital on the fifth. He was determined to be bacteremic from pneumonia and a wound on his left heel. Patient is still currently on antibiotics. Patient presents to the emergency department and is a poor historian. Pain or shortness of breath. Does admit to chronic low back pain. Remainder of the HPI is limited - Related Data Home Medications Medication Instructions Recorded Confirmed Rivaroxaban [Xarelto] 20 mg PO DAILY@0800 08/06/13 04/02/20 Furosemide 40 mg PO DAILY@0808/09/13 04/02/20 Fluticasone/Salmeterol [Advair 1 puff INHALATION RT-BID@0800,209908/18/14 04/02/20 250-50 Diskus] Tiotropium 18 Mcg/Puff [Spiriva] 1 cap INHALATION RT-DAILY 08/18/14 04/02/20 Atorvastatin [Lipitor] 40 mg PO HS@209901/20/18 04/02/20 Multivitamin [Men's Multi-Vitamin] 1 tab PO DAILY@169901/20/18 04/02/20 Albuterol Sulfate [Ventolin HFA] 2 puff INHALATION RT-QID PRN 11/22/19 04/02/20 Ipratropium-Albuterol Nebulize 3 ml INHALATION RT-QID 11/22/19 04/02/20 [Duoneb 0.5 mg-3 mg/3 ml Soln] Ascorbic Acid [Vitamin C] 1,000 mg PO DAILY@169903/19/20 04/02/20 Calcium Carbonate [Calcium] 600 mg PO DAILY@1700 03/19/20 04/02/20 Cholecalciferol [Vitamin D3 (25 1,000 unit PO DAILY@1700 03/19/20 04/02/20 Mcg = 1000 Iu)] Cyanocobalamin (Vitamin B-12) 1,000 mcg PO DAILY@1700 03/19/20 04/02/20 [Vitamin B-12] Famotidine [Pepcid] 20 mg PO BID@0800,2100 04/02/20 04/02/20 Magnesium Hydroxide [Milk of 2,400 mg PO DAILY PRN 04/02/20 04/02/20 Magnesia] Metoprolol Tartrate [Lopressor] 12.5 mg PO BID@0800,1700 04/02/20 04/02/20 Na Phos,M-B/Na Phos,Di-Ba [Fleet 133 ml RECTAL DAILY PRN 04/02/20 04/02/20 Adult] bisacodyL [Dulcolax] 10 mg RECTAL DAILY PRN 04/02/20 04/02/20 Previous Rx's Medication Instructions Recorded Acetaminophen Tab [Tylenol] 650 mg PO Q6HR PRN tab 01/11/20 Collagenase [Santyl] 1 applic TOPICAL DAILY applic 04/05/20 Gabapentin 600 mg PO BID@0800,1700 #6 tab 04/05/20 Ibuprofen [Motrin] 400 mg PO Q6HR PRN tab 04/05/20 Zinc Sulfate [Orazinc] 220 mg PO DAILY #1 capsule 04/05/20 oxyCODONE HCL/ACETAMINOPHEN 1 tab PO TID PRN #9 tab 04/05/20 [Percocet 10-325 mg] Docusate [Colace] 100 mg PO HS cap 04/11/20 dexAMETHasone [Hexadrol] See Taper PO DAILY 4 Days tablet 04/11/20 Allergies Allergy/AdvReac Type Severity Reaction Status Date / Time No Known Allergies Allergy Verified 04/02/20 19:22 Review of Systems ROS Statement: Those systems with pertinent positive or pertinent negative responses have been documented in the HPI. ROS Other: All systems not noted in ROS Statement are negative. Past Medical History Past Medical History: Atrial Fibrillation, Heart Failure, COPD, Hypertension, Myocardial Infarction (AL), Musculoskeletal Disorder, Osteoarthritis (OA), Pneumonia, Thyroid Disorder Additional Past Medical History / Comment(s): left breast mass HX OF COLON POLYPS. HX RIGHT BREAST MASS. O2 AT 2L NC @HS AND PRN. Hx Aspiration Pneumonia R/T "FLAPPER." HX OF THYROID PROBLEM - NO TX NOW. CHRONIC BACK PAIN, RUPESH LEG NT. RT FOOT/ANKLE EDEMA, WEARS TEDS. RUPESH CTS Last Myocardial Infarction Date:: 1987 History of Any Multi-Drug Resistant Organisms: MRSA Date of last positivie culture/infection: MRSA 03/19/20 MDRO Source:: Foot Past Surgical History: Back Surgery, Coronary Bypass/CABG, Joint Replacement, Orthopedic Surgery Additional Past Surgical History / Comment(s): left carpel tunnel, CARPAL TUNNEL RIGHT x 2. CABG 1987 X2. RUPESH SCOPES KNEES. Rupesh Hip Replacement, Nicholas Fundoplicaton. Rt Shoulder Rotator Cuff. BACK X2. HX OF EPIDURALS FOR PAIN. Past Anesthesia/Blood Transfusion Reactions: No Reported Reaction Past Psychological History: No Psychological Hx Reported Smoking Status: Former smoker Past Alcohol Use History: None Reported Past Drug Use History: None Reported - Past Family History Daughter(s) Family Medical History: Cancer Father History Unknown: Yes Mother Family Medical History: No Reported History General Exam Limitations: physical limitation General appearance: alert Eye exam: Present: normal appearance, PERRL, EOMI. Absent: scleral icterus, conjunctival injection, periorbital swelling ENT exam: Present: mucous membranes dry Neck exam: Present: normal inspection. Absent: tenderness, meningismus, lymphadenopathy Respiratory exam: Present: wheezes, accessory muscle use Cardiovascular Exam: Present: tachycardia, irregular rhythm GI/Abdominal exam: Present: soft, normal bowel sounds. Absent: distended, tenderness, guarding, rebound, rigid Neurological exam: Present: alert, oriented X3 Skin exam: Present: warm, dry, other (redness left leg) Course Vital Signs 04/02/20 04/02/20 04/02/20 17:31 17:33 18:00 Temperature 103.0 F H Pulse Rate 120 H Respiratory 24 Rate Blood Pressure 112/74 112/74 O2 Sat by Pulse 100 93 L 91 L Oximetry 04/02/20 04/02/20 04/02/20 18:30 19:28 21:01 Temperature 101.9 F H 103.1 F H Pulse Rate 105 H 107 H Respiratory 18 22 Rate Blood Pressure 129/82 113/82 O2 Sat by Pulse 93 L 98 Oximetry 04/02/20 22:24 Temperature 101.3 F H Pulse Rate Respiratory Rate Blood Pressure O2 Sat by Pulse Oximetry Medical Decision Making - Medical Decision Making Upon arrival patient is placed into room 1. A thorough history and physical exam was performed. 12-lead EKG is performed which demonstrates the patient is in A. fib with a controlled ventricular rate. Peripheral IV is established. Patient started on maintenance fluids. Laboratory studies were conducted. Patient does not demonstrate any increase with her breathing. Lab studies are remarkable for a lactic of 2.1. Troponin 0.040. Urinalysis demonstrates occasional bacteria with large leukocyte esterase. Patient was given a dose of Rocephin. Chest x-ray demonstrates pulmonary fibrotic changes with no acute lung disease. I did discuss his results with the patient. Did recommend hospitalization due to hypoxia, cold infection, NSTEMI and UTI. I spoke with Dr. Riley who agreed to admit the patient. We will place pulmonology on consult. Patient remained in stable condition awaiting a bed on the floor - Lab Data Result diagrams: 04/11/20 07:43 04/11/20 07:43 Lab Results 04/02/20 04/02/20 04/02/20 Range/Units 17:39 17:39 17:39 WBC 5.2 (3.8-10.6) k/uL RBC 3.31 L (4.30-5.90) m/uL Hgb 9.0 L (13.0-17.5) gm/dL Hct 27.6 L (39.0-53.0) % MCV 83.3 (80.0-100.0) fL MCH 27.1 (25.0-35.0) pg MCHC 32.5 (31.0-37.0) g/dL RDW 15.3 (11.5-15.5) % Plt Count 167 (150-450) k/uL MPV 6.9 Neutrophils % 76 % Lymphocytes % 10 % Monocytes % 10 % Eosinophils % 0 % Basophils % 2 % Neutrophils # 4.0 (1.3-7.7) k/uL Lymphocytes # 0.5 L (1.0-4.8) k/uL Monocytes # 0.5 (0-1.0) k/uL Eosinophils # 0.0 (0-0.7) k/uL Basophils # 0.1 (0-0.2) k/uL Hypochromasia Slight PT 16.9 H (9.0-12.0) sec INR 1.7 H (<1.2) APTT 39.7 H (22.0-30.0) sec D-Dimer 1.18 H (<0.60) mg/L FEU Sodium 138 (137-145) mmol/L Potassium 3.6 (3.5-5.1) mmol/L Chloride 95 L (98-107) mmol/L Carbon Dioxide 37 H (22-30) mmol/L Anion Gap 6 mmol/L BUN 33 H (9-20) mg/dL Creatinine 1.09 (0.66-1.25) mg/dL Est GFR (CKD-EPI)AfAm 73 (>60 ml/min/1.73 sqM) Est GFR (CKD-EPI)NonAf 63 (>60 ml/min/1.73 sqM) Glucose 113 H (74-99) mg/dL Lactic Ac Sepsis Rflx Plasma Lactic Acid Gio (0.7-2.0) mmol/L Calcium 7.9 L (8.4-10.2) mg/dL Magnesium 1.5 L (1.6-2.3) mg/dL Ferritin 156.4 (22.0-322.0) ng/mL Total Bilirubin 0.4 (0.2-1.3) mg/dL AST 52 (17-59) U/L ALT 25 (4-49) U/L Alkaline Phosphatase 69 (38-126) U/L Lactate Dehydrogenase 661 H (313-618) U/L Creatine Kinase 75 (55-170) U/L Troponin I (0.000-0.034) ng/mL C-Reactive Protein 63.0 H (<10.0) mg/L Total Protein 6.1 L (6.3-8.2) g/dL Albumin 3.0 L (3.5-5.0) g/dL Procalcitonin (0.02-0.09) ng/mL Urine Color Urine Appearance (Clear) Urine pH (5.0-8.0) Ur Specific [place] (1.001-1.035) Urine Protein (Negative) Urine Glucose (UA) (Negative) Urine Ketones (Negative) Urine Blood (Negative) Urine Nitrite (Negative) Urine Bilirubin (Negative) Urine Urobilinogen (<2.0) mg/dL Ur Leukocyte Esterase (Negative) Urine RBC (0-5) /hpf Urine WBC (0-5) /hpf Ur Squamous Epith Cells (0-4) /hpf Amorphous Sediment (None) /hpf Urine Bacteria (None) /hpf Hyaline Casts (0-2) /lpf Urine Mucus (None) /hpf 04/02/20 04/02/20 04/02/20 Range/Units 17:39 17:39 17:39 WBC (3.8-10.6) k/uL RBC (4.30-5.90) m/uL Hgb (13.0-17.5) gm/dL Hct (39.0-53.0) % MCV (80.0-100.0) fL MCH (25.0-35.0) pg MCHC (31.0-37.0) g/dL RDW (11.5-15.5) % Plt Count (150-450) k/uL MPV Neutrophils % % Lymphocytes % % Monocytes % % Eosinophils % % Basophils % % Neutrophils # (1.3-7.7) k/uL Lymphocytes # (1.0-4.8) k/uL Monocytes # (0-1.0) k/uL Eosinophils # (0-0.7) k/uL Basophils # (0-0.2) k/uL Hypochromasia PT (9.0-12.0) sec INR (<1.2) APTT (22.0-30.0) sec D-Dimer (<0.60) mg/L FEU Sodium (137-145) mmol/L Potassium (3.5-5.1) mmol/L Chloride (98-107) mmol/L Carbon Dioxide (22-30) mmol/L Anion Gap mmol/L BUN (9-20) mg/dL Creatinine (0.66-1.25) mg/dL Est GFR (CKD-EPI)AfAm (>60 ml/min/1.73 sqM) Est GFR (CKD-EPI)NonAf (>60 ml/min/1.73 sqM) Glucose (74-99) mg/dL Lactic Ac Sepsis Rflx Plasma Lactic Acid Gio 2.1 H* (0.7-2.0) mmol/L Calcium (8.4-10.2) mg/dL Magnesium (1.6-2.3) mg/dL Ferritin (22.0-322.0) ng/mL Total Bilirubin (0.2-1.3) mg/dL AST (17-59) U/L ALT (4-49) U/L Alkaline Phosphatase (38-126) U/L Lactate Dehydrogenase (313-618) U/L Creatine Kinase (55-170) U/L Troponin I 0.040 H* (0.000-0.034) ng/mL C-Reactive Protein (<10.0) mg/L Total Protein (6.3-8.2) g/dL Albumin (3.5-5.0) g/dL Procalcitonin 0.09 (0.02-0.09) ng/mL Urine Color Urine Appearance (Clear) Urine pH (5.0-8.0) Ur Specific [place] (1.001-1.035) Urine Protein (Negative) Urine Glucose (UA) (Negative) Urine Ketones (Negative) Urine Blood (Negative) Urine Nitrite (Negative) Urine Bilirubin (Negative) Urine Urobilinogen (<2.0) mg/dL Ur Leukocyte Esterase (Negative) Urine RBC (0-5) /hpf Urine WBC (0-5) /hpf Ur Squamous Epith Cells (0-4) /hpf Amorphous Sediment (None) /hpf Urine Bacteria (None) /hpf Hyaline Casts (0-2) /lpf Urine Mucus (None) /hpf 04/02/20 04/02/20 04/02/20 Range/Units 18:28 18:29 18:47 WBC (3.8-10.6) k/uL RBC (4.30-5.90) m/uL Hgb (13.0-17.5) gm/dL Hct (39.0-53.0) % MCV (80.0-100.0) fL MCH (25.0-35.0) pg MCHC (31.0-37.0) g/dL RDW (11.5-15.5) % Plt Count (150-450) k/uL MPV Neutrophils % % Lymphocytes % % Monocytes % % Eosinophils % % Basophils % % Neutrophils # (1.3-7.7) k/uL Lymphocytes # (1.0-4.8) k/uL Monocytes # (0-1.0) k/uL Eosinophils # (0-0.7) k/uL Basophils # (0-0.2) k/uL Hypochromasia PT (9.0-12.0) sec INR (<1.2) APTT (22.0-30.0) sec D-Dimer (<0.60) mg/L FEU Sodium (137-145) mmol/L Potassium (3.5-5.1) mmol/L Chloride (98-107) mmol/L Carbon Dioxide (22-30) mmol/L Anion Gap mmol/L BUN (9-20) mg/dL Creatinine (0.66-1.25) mg/dL Est GFR (CKD-EPI)AfAm (>60 ml/min/1.73 sqM) Est GFR (CKD-EPI)NonAf (>60 ml/min/1.73 sqM) Glucose (74-99) mg/dL Lactic Ac Sepsis Rflx Y Plasma Lactic Acid Gio (0.7-2.0) mmol/L Calcium (8.4-10.2) mg/dL Magnesium (1.6-2.3) mg/dL Ferritin (22.0-322.0) ng/mL Total Bilirubin (0.2-1.3) mg/dL AST (17-59) U/L ALT (4-49) U/L Alkaline Phosphatase (38-126) U/L Lactate Dehydrogenase (313-618) U/L Creatine Kinase (55-170) U/L Troponin I (0.000-0.034) ng/mL C-Reactive Protein (<10.0) mg/L Total Protein (6.3-8.2) g/dL Albumin (3.5-5.0) g/dL Procalcitonin (0.02-0.09) ng/mL Urine Color Yellow Yellow Urine Appearance Cloudy Cloudy (Clear) Urine pH 5.5 5.5 (5.0-8.0) Ur Specific [place] 1.013 1.013 (1.001-1.035) Urine Protein 2+ H 2+ H (Negative) Urine Glucose (UA) Negative Negative (Negative) Urine Ketones Negative Negative (Negative) Urine Blood Moderate H Large H (Negative) Urine Nitrite Negative Negative (Negative) Urine Bilirubin Negative Negative (Negative) Urine Urobilinogen <2.0 <2.0 (<2.0) mg/dL Ur Leukocyte Esterase Moderate H Large H (Negative) Urine RBC >182 H >182 H (0-5) /hpf Urine WBC 15 H 38 H (0-5) /hpf Ur Squamous Epith Cells 1 (0-4) /hpf Amorphous Sediment Rare H Rare H (None) /hpf Urine Bacteria Occasional H Occasional H (None) /hpf Hyaline Casts 9 H (0-2) /lpf Urine Mucus Rare H Rare H (None) /hpf - EKG Data EKG Comments: EKG demonstrates A. fib with a rapid ventricular rate of 101. QRS 154. QTC of 500. Significant baseline artifact. Disposition Clinical Impression: Cellulitis of left leg, UTI (urinary tract infection), Sepsis, COVID-19, Pyrexia, Atrial fibrillation, NSTEMI (non-ST elevated myocardial infarction), Syncope Disposition: ADMITTED IP TO THIS HOSP Condition: Stable Is patient prescribed a controlled substance at d/c from ED?: No Decision to Admit Reason: Admit from EC Decision Date: 04/02/20 Decision Time: 19:53
[2020-04-02 18:17] LABS: Basophils # (A) 0.1 k/uL (0-0.2); Basophils % (A) 2 %; Eosinophils % (A) 0 %; HCT 27.6 % (39.0-53.0); Hypochromasia Slight; Lymphocytes # (A) 0.5 k/uL (1.0-4.8); Lymphocytes % (A) 10 %; MCH 27.1 pg (25.0-35.0); MCHC 32.5 g/dL (31.0-37.0); MCV 83.3 fL (80.0-100.0); Mean Platelet Volume 6.9; Monocytes # (A) 0.5 k/uL (0-1.0); Monocytes % (A) 10 %; Neutrophils % (A) 76 %; Platelet Count 167 k/uL (150-450); RBC 3.31 m/uL (4.30-5.90); RDW 15.3 % (11.5-15.5); WBC 5.2 k/uL (3.8-10.6)
--- NOTE | 2020-04-02 18:24 | XR ---
EXAMINATION TYPE: XR chest 1V portable DATE OF EXAM: 04/02/2020 COMPARISON: 03/21/2020 HISTORY: Syncope TECHNIQUE: FINDINGS: Heart is slightly enlarged. There is no gross heart failure. There is some coarsening of in terstitial markings. There are sternal wires. Thoracic aorta is atheromatous. There is arthritic daley ges in the shoulder joints. There is no pleural effusion. IMPRESSION: Pulmonary fibrotic changes. No acute lung disease. No change.
[2020-04-02 18:32] LABS: INR 1.7 (<1.2); Partial Thromboplastin Time 39.7 sec (22.0-30.0); Prothrombin Time 16.9 sec (9.0-12.0)
[2020-04-02 18:37] LABS: D-Dimer 1.18 mg/L FEU (<0.60)
[2020-04-02 18:47] LABS: Amorphous Sediment,Urine Rare /hpf; Appearance,Urine Cloudy (Clear); Bacteria,Urine Occasional /hpf; Bilirubin,Urine Negative (Negative); Blood,Urine Moderate (Negative); Color,Urine Yellow; Glucose,Urine (UA) Negative (Negative); Ketones,Urine Negative (Negative); Leukocyte Esterase,Urine Moderate (Negative); Mucus,Urine Rare /hpf; Nitrite,Urine Negative (Negative); PH, Urine 5.5 (5.0-8.0); Protein,Urine 2+ (Negative); RBC,Urine >182 /hpf (0-5); Specific Gravity,Urine 1.013 (1.001-1.035); Squamous Epithelial Cell,Urine 1 /hpf (0-4); Urobilinogen,Urine <2.0 mg/dL (<2.0); WBC,Urine 15 /hpf (0-5)
[2020-04-02 18:54] LABS: Calcium 7.9 mg/dL (8.4-10.2); Magnesium 1.5 mg/dL (1.6-2.3); Potassium 3.6 mmol/L (3.5-5.1); Total Bilirubin 0.4 mg/dL (0.2-1.3); Total Protein 6.1 g/dL (6.3-8.2)
[2020-04-02 18:58] LABS: Amorphous Sediment,Urine Rare /hpf; Appearance,Urine Cloudy (Clear); Bacteria,Urine Occasional /hpf; Bilirubin,Urine Negative (Negative); Blood,Urine Large (Negative); Color,Urine Yellow; Glucose,Urine (UA) Negative (Negative); Hyaline Casts,Urine 9 /lpf (0-2); Ketones,Urine Negative (Negative); Leukocyte Esterase,Urine Large (Negative); Mucus,Urine Rare /hpf; Nitrite,Urine Negative (Negative); PH, Urine 5.5 (5.0-8.0); Protein,Urine 2+ (Negative); RBC,Urine >182 /hpf (0-5); Specific Gravity,Urine 1.013 (1.001-1.035); Urobilinogen,Urine <2.0 mg/dL (<2.0); WBC,Urine 38 /hpf (0-5)
[2020-04-02] MEDS ORDERED: cefTRIAXone IN SWFI 1,000 MG/10 ML SYRINGE IVP STA (19:07)
[2020-04-02] MEDS ORDERED: NALOXONE 0.4 MG/ML 1 ML VIAL IV PRN (20:11)
[2020-04-02] MEDS ORDERED: MORPHINE SULFATE 4 MG/ML SYRINGE IV PRN (20:11)
[2020-04-02] MEDS ORDERED: NA PHOS,M-B/NA PHOS,DI-BA 133 ML ENEMA RECTAL PRN (20:21)
[2020-04-02] MEDS ORDERED: bisacodyL 10 MG SUPP RECTAL PRN (20:21)
[2020-04-02] MEDS ORDERED: MAGNESIUM HYDROXIDE 2,400 MG/10 ML CUP PO PRN (20:21)
[2020-04-02] MEDS ORDERED: ALBUTEROL HFA INHALER INHALATION PRN (20:21)
[2020-04-02] MEDS: IBUPROFEN 400 MG TAB PO PRN (21:05)
[2020-04-02] MEDS: SYMBICORT 80-4.5 MCG INHALER INHALATION SCH (21:17)
[2020-04-02] MEDS: CIPROFLOXACIN HCL 250 MG TAB PO SCH (21:51)
[2020-04-02] MEDS: ATORVASTATIN 40 MG TAB PO SCH (21:52)
[2020-04-02] MEDS: SODIUM CHLORIDE 0.9% 1,000 ML IV SCH (21:52)
[2020-04-02] MEDS: FAMOTIDINE 20 MG TAB PO SCH (21:52)
[2020-04-02 22:28] LABS: Ferritin 156.4 ng/mL (22.0-322.0)
[2020-04-02] MEDS ORDERED: Magnesium Replacement Protocol 1 EACH MISC MISCELLANE PRN (23:07)
[2020-04-02] MEDS: MAGNESIUM SULFATE-D5W PMX 1 GM in DEXTROSE/WATER 1 100ML.BAG IVPB SCH (23:25)
[2020-04-02] MEDS: oxyCODONE-APAP 10-325MG 1 EACH TAB PO PRN (23:26)
[2020-04-03] MEDS: MAGNESIUM SULFATE-D5W PMX 1 GM in DEXTROSE/WATER 1 100ML.BAG IVPB SCH (00:37)
[2020-04-03] MEDS: SODIUM CHLORIDE 0.9% 1,000 ML IV SCH (05:38)
[2020-04-03] MEDS: ALBUTEROL HFA INHALER INHALATION SCH ×4 (07:08→20:07)
[2020-04-03] MEDS: SYMBICORT 80-4.5 MCG INHALER INHALATION SCH ×2 (07:09→20:07)
[2020-04-03] MEDS: TIOTROPIUM 2.5 MCG INHALER INHALATION SCH (07:26)
[2020-04-03 07:29] LABS: Basophils # (A) 0.1 k/uL (0-0.2); Basophils % (A) 2 %; Eosinophils % (A) 1 %; HCT 23.7 % (39.0-53.0); HGB 7.6 gm/dL (13.0-17.5); Hypochromasia Slight; Lymphocytes # (A) 1.1 k/uL (1.0-4.8); Lymphocytes % (A) 34 %; MCH 26.6 pg (25.0-35.0); MCV 83.3 fL (80.0-100.0); Monocytes # (A) 0.3 k/uL (0-1.0); Monocytes % (A) 9 %; Neutrophils # (A) 1.7 k/uL (1.3-7.7); Neutrophils % (A) 51 %; Platelet Count 135 k/uL (150-450); RBC 2.84 m/uL (4.30-5.90); RDW 15.3 % (11.5-15.5); WBC 3.3 k/uL (3.8-10.6)
[2020-04-03] MEDS ORDERED: DOXYCYCLINE 100 MG CAP PO SCH (08:00)
[2020-04-03] MEDS ORDERED: TIOTROPIUM 2.5 MCG INHALER INHALATION SCH (08:00)
[2020-04-03 08:08] LABS: Calcium 7.5 mg/dL (8.4-10.2); Magnesium 2.1 mg/dL (1.6-2.3); Potassium 2.9 mmol/L (3.5-5.1)
[2020-04-03] MEDS: METOPROLOL TARTRATE 12.5 MG TAB PO SCH ×2 (08:46→17:27)
[2020-04-03] MEDS: FAMOTIDINE 20 MG TAB PO SCH ×2 (08:46→19:47)
[2020-04-03] MEDS: RIVAROXABAN 20 MG TAB PO SCH (08:46)
[2020-04-03] MEDS: CIPROFLOXACIN HCL 250 MG TAB PO SCH ×2 (08:47→19:47)
[2020-04-03] MEDS: FUROSEMIDE 40 MG TAB PO SCH (08:47)
[2020-04-03] MEDS: oxyCODONE-APAP 10-325MG 1 EACH TAB PO PRN ×2 (08:50→19:46)
[2020-04-03] MEDS: GABAPENTIN 300 MG CAP PO SCH ×2 (08:50→17:27)
[2020-04-03] MEDS ORDERED: Potassium Replacement Protocol 1 EACH MISC MISCELLANE PRN ×2 (11:55→12:05)
[2020-04-03] MEDS: POTASSIUM CHLORIDE ER 20 MEQ TAB.ER PO SCH ×3 (12:42→15:21)
--- NOTE | 2020-04-03 15:39 | P.HPIM ---
History of Present Illness H&P Date: 04/03/20 Chief Complaint: Fevers, positiveCovid testing at subacute rehab Patient was recently discharged from the hospital with sepsis secondary to pseudomonas aeruginosa pneumonia and MRSA with pseudomonas aeruginosa of chronic right foot wound, chronic stage II sacral pressure ulcer ,acute on chronic hypoxic respiratory failure secondary to COPD exacerbation, had tested previousl y negative for covid, and discharged to subacute rehab. Patient presented to the ER with positive Covid testing from [facility], T-max 103, currently afebrile. [facility] reported patient also fainted while being transferred from the bathroom -denied fall/injury/trauma. Wearing 4 L nasal cannula to maintain O2 sats in the 90s. Chest x-ray reporting pulmonary fibrotic changes, no change, no acute lung disease. EKG recording atrial fibrillation, right bundle branch block, troponin 0.059, 0.067. INR 1.7, d-dimer 1.18.LDH 661,CK 75,CRP 63, ferritin 156.4. Pro-calcitonin 0.09. Potassium 2.9, BUN 32, creatinine 0.94. Hemoglobin 9, admission, currently 7.6. Anticoagulated on Xarelto. WBC on admission 5.2, currently 3.3. UA occasional bacteria, WBC 38, large leukocytes, negative for nitrates, culture pending. Blood sugars controlled in the low 100s to 110s. Received antibiotics and IV fluids. Review of Systems ROS Statement: Those systems with pertinent positive or pertinent negative responses have been documented in the HPI. ROS Other: All systems not noted in ROS Statement are negative. Past Medical History Past Medical History: Atrial Fibrillation, Heart Failure, COPD, Hypertension, Myocardial Infarction (RI), Musculoskeletal Disorder, Osteoarthritis (OA), Pneumonia, Thyroid Disorder Additional Past Medical History / Comment(s): left breast mass HX OF COLON POLYPS. HX RIGHT BREAST MASS. O2 AT 2L NC @HS AND PRN. Hx Aspiration Pneumonia R/T "FLAPPER." HX OF THYROID PROBLEM - NO TX NOW. CHRONIC BACK PAIN, JAIME LEG NT. RT FOOT/ANKLE EDEMA, WEARS TEDS. JAIME CTS Last Myocardial Infarction Date:: 1987 History of Any Multi-Drug Resistant Organisms: MRSA Date of last positivie culture/infection: MRSA 03/19/20 MDRO Source:: Foot Past Surgical History: Back Surgery, Coronary Bypass/CABG, Joint Replacement, Orthopedic Surgery Additional Past Surgical History / Comment(s): left carpel tunnel, CARPAL TUNNEL RIGHT x 2. CABG 1987 X2. JAIME SCOPES KNEES. Jaime Hip Replacement, Nicholas Fundoplicaton. Rt Shoulder Rotator Cuff. BACK X2. HX OF EPIDURALS FOR PAIN. Past Anesthesia/Blood Transfusion Reactions: No Reported Reaction Past Psychological History: No Psychological Hx Reported Smoking Status: Former smoker Past Alcohol Use History: None Reported Past Drug Use History: None Reported - Past Family History Daughter(s) Family Medical History: Cancer Father History Unknown: Yes Mother Family Medical History: No Reported History Medications and Allergies Home Medications Medication Instructions Recorded Confirmed Type Rivaroxaban [Xarelto] 20 mg PO DAILY@0800 08/06/13 04/02/20 History Furosemide 40 mg PO DAILY@0800 08/09/13 04/02/20 History Fluticasone/Salmeterol [Advair 1 puff INHALATION RT-BID@0800,2100 08/18/14 04/02/20 History 250-50 Diskus] Tiotropium 18 Mcg/Puff [Spiriva] 1 cap INHALATION RT-DAILY 08/18/14 04/02/20 History Atorvastatin [Lipitor] 40 mg PO HS@2100 01/20/18 04/02/20 History Multivitamin [Men's Multi-Vitamin] 1 tab PO DAILY@1700 01/20/18 04/02/20 History Albuterol Sulfate [Ventolin HFA] 2 puff INHALATION RT-QID PRN 11/22/19 04/02/20 History Ipratropium-Albuterol Nebulize 3 ml INHALATION RT-QID 11/22/19 04/02/20 History [Duoneb 0.5 mg-3 mg/3 ml Soln] Acetaminophen Tab [Tylenol] 650 mg PO Q6HR PRN tab 01/11/20 04/02/20 Rx Ascorbic Acid [Vitamin C] 1,000 mg PO DAILY@0 03/19/20 04/02/20 History Calcium Carbonate [Calcium] 600 mg PO DAILY@0 03/19/20 04/02/20 History Cholecalciferol [Vitamin D3 (25 1,000 unit PO DAILY@1700 03/19/20 04/02/20 History Mcg = 1000 Iu)] Cyanocobalamin (Vitamin B-12) 1,000 mcg PO DAILY@1700 03/19/20 04/02/20 History [Vitamin B-12] oxyCODONE HCL/ACETAMINOPHEN 1 tab PO TID PRN #9 tab 03/27/20 04/02/20 Rx [Percocet 10-325 mg] Ciprofloxacin HCl [Cipro] 750 mg PO BID@0800,209904/02/20 04/02/20 History Doxycycline Hyclate [Doryx] 100 mg PO BID@0800,17004/02/20 04/02/20 History Famotidine [Pepcid] 20 mg PO BID@0800,209904/02/20 04/02/20 History Gabapentin 600 mg PO BID@0800,1700 04/02/20 04/02/20 History Magnesium Hydroxide [Milk of 2,400 mg PO DAILY PRN 04/02/20 04/02/20 History Magnesia] Metoprolol Tartrate [Lopressor] 12.5 mg PO BID@0800,1700 04/02/20 04/02/20 History Na Phos,M-B/Na Phos,Di-Ba [Fleet 133 ml RECTAL DAILY PRN 04/02/20 04/02/20 His tory Adult] bisacodyL [Dulcolax] 10 mg RECTAL DAILY PRN 04/02/20 04/02/20 History Allergies Allergy/AdvReac Type Severity Reaction Status Date / Time No Known Allergies Allergy Verified 04/02/20 19:22 Physical Exam Vitals: Vital Signs Temp Pulse Pulse Resp BP BP Pulse Ox 04/03/20 03:32 98.7 F 64 17 98/62 100 04/02/20 23:00 100.2 F H 64 17 92/62 98 04/02/20 22:33 109 H 18 119/72 94 L 04/02/20 22:24 101.3 F H 04/02/20 21:01 103.1 F H 04/02/20 19:28 101.9 F H 107 H 22 113/82 98 04/02/20 18:30 105 H 18 129/82 93 L 04/02/20 18:00 112/74 91 L 04/02/20 17:33 93 L 04/02/20 17:31 103.0 F H 120 H 24 112/74 100 Intake and Output 04/02/20 04/03/20 04/03/20 22:59 06:59 14:59 Output Total 480 Balance -480 Output: Urine 480 Other: # Voids 1 Weight 77.519 kg 78.5 kg PHYSICAL EXAM: VITAL SIGNS: As above GENERAL: Sitting up in bed, no acute distress. No shortness of breath with conversing. HEENT: Conjunctivae normal. eyes normal. NECK: No JVD. No thyroid enlargement. No LNs CARDIOVASCULAR: S1, S2 regular. No murmur RESPIRATION: Breath sounds diminished in the bases. Coarse scattered rhonchi, no crackles. No bronchial breathing. No wheezing ABDOMEN: Soft, nontender . No guarding. no masses palpable. No ascites, No hepatosplenomegaly.Bowel sounds heard. LEGS: No edema. no swelling PSYCHIATRY: Alert and oriented X3, mood and affect normal. NERVOUS SYSTEM: Cranial N 2-12 grossly normal. Moves all 4 limbs. Diffuse weakness, No focal deficits. Strength and sensation grossly intact.. Skin: Right foot dressing clean dry and intact, chronic stage II sacral pressure ulcer dressing clean dry and intact Lymphatic system. No LN neck axilla. Microbiology 04/02/20 18:47 Urine,Voided Urine Culture - Preliminary Results CBC & Chem 7: 04/03/20 07:15 04/03/20 07:15 Labs: Abnormal Lab Results - Last 24 Hours (Table) 04/02/20 04/02/20 04/02/20 Range/Units 17:39 17:39 17:39 WBC (3.8-10.6) k/uL RBC 3.31 L (4.30-5.90) m/uL Hgb 9.0 L (13.0-17.5) gm/dL Hct 27.6 L (39.0-53.0) % Plt Count (150-450) k/uL Lymphocytes # 0.5 L (1.0-4.8) k/uL PT 16.9 H (9.0-12.0) sec INR 1.7 H (<1.2) APTT 39.7 H (22.0-30.0) sec D-Dimer 1.18 H (<0.60) mg/L FEU Potassium (3.5-5.1) mmol/L Chloride 95 L (98-107) mmol/L Carbon Dioxide 37 H (22-30) mmol/L BUN 33 H (9-20) mg/dL Glucose 113 H (74-99) mg/dL Plasma Lactic Acid Gio (0.7-2.0) mmol/L Calcium 7.9 L (8.4-10.2) mg/dL Magnesium 1.5 L (1.6-2.3) mg/dL Lactate Dehydrogenase 661 H (313-618) U/L Troponin I (0.000-0.034) ng/mL C-Reactive Protein 63.0 H (<10.0) mg/L Total Protein 6.1 L (6.3-8.2) g/dL Albumin 3.0 L (3.5-5.0) g/dL Urine Protein (Negative) Urine Blood (Negative) Ur Leukocyte Esterase (Negative) Urine RBC (0-5) /hpf Urine WBC (0-5) /hpf Amorphous Sediment (None) /hpf Urine Bacteria (None) /hpf Hyaline Casts (0-2) /lpf Urine Mucus (None) /hpf Coronavirus (PCR) (Not Detectd) 04/02/20 04/02/20 04/02/20 Range/Units 17:39 17:39 18:29 WBC (3.8-10.6) k/uL RBC (4.30-5.90) m/uL Hgb (13.0-17.5) gm/dL Hct (39.0-53.0) % Plt Count (150-450) k/uL Lymphocytes # (1.0-4.8) k/uL PT (9.0-12.0) sec INR (<1.2) APTT (22.0-30.0) sec D-Dimer (<0.60) mg/L FEU Potassium (3.5-5.1) mmol/L Chloride (98-107) mmol/L Carbon Dioxide (22-30) mmol/L BUN (9-20) mg/dL Glucose (74-99) mg/dL Plasma Lactic Acid Gio 2.1 H* (0.7-2.0) mmol/L Calcium (8.4-10.2) mg/dL Magnesium (1.6-2.3) mg/dL Lactate Dehydrogenase (313-618) U/L Troponin I 0.040 H* (0.000-0.034) ng/mL C-Reactive Protein (<10.0) mg/L Total Protein (6.3-8.2) g/dL Albumin (3.5-5.0) g/dL Urine Protein 2+ H (Negative) Urine Blood Moderate H (Negative) Ur Leukocyte Esterase Moderate H (Negative) Urine RBC >182 H (0-5) /hpf Urine WBC 15 H (0-5) /hpf Amorphous Sediment Rare H (None) /hpf Urine Bacteria Occasional H (None) /hpf Hyaline Casts (0-2) /lpf Urine Mucus Rare H (None) /hpf Coronavirus (PCR) (Not Detectd) 04/02/20 04/02/20 04/02/20 Range/Units 18:47 20:50 21:06 WBC (3.8-10.6) k/uL RBC (4.30-5.90) m/uL Hgb (13.0-17.5) gm/dL Hct (39.0-53.0) % Plt Count (150-450) k/uL Lymphocytes # (1.0-4.8) k/uL PT (9.0-12.0) sec INR (<1.2) APTT (22.0-30.0) sec D-Dimer (<0.60) mg/L FEU Potassium (3.5-5.1) mmol/L Chloride (98-107) mmol/L Carbon Dioxide (22-30) mmol/L BUN (9-20) mg/dL Glucose (74-99) mg/dL Plasma Lactic Acid Gio (0.7-2.0) mmol/L Calcium (8.4-10.2) mg/dL Magnesium (1.6-2.3) mg/dL Lactate Dehydrogenase (313-618) U/L Troponin I 0.059 H* (0.000-0.034) ng/mL C-Reactive Protein (<10.0) mg/L Total Protein (6.3-8.2) g/dL Albumin (3.5-5.0) g/dL Urine Protein 2+ H (Negative) Urine Blood Large H (Negative) Ur Leukocyte Esterase Large H (Negative) Urine RBC >182 H (0-5) /hpf Urine WBC 38 H (0-5) /hpf Amorphous Sediment Rare H (None) /hpf Urine Bacteria Occasional H (None) /hpf Hyaline Casts 9 H (0-2) /lpf Urine Mucus Rare H (None) /hpf Coronavirus (PCR) Detected A (Not Detectd) 04/03/20 04/03/20 04/03/20 Range/Units 00:03 07:15 07:15 WBC 3.3 L (3.8-10.6) k/uL RBC 2.84 L (4.30-5.90) m/uL Hgb 7.6 L (13.0-17.5) gm/dL Hct 23.7 L (39.0-53.0) % Plt Count 135 L (150-450) k/uL Lymphocytes # (1.0-4.8) k/uL PT (9.0-12.0) sec INR (<1.2) APTT (22.0-30.0) sec D-Dimer (<0.60) mg/L FEU Potassium 2.9 L (3.5-5.1) mmol/L Chloride (98-107) mmol/L Carbon Dioxide 37 H (22-30) mmol/L BUN 32 H (9-20) mg/dL Glucose 100 H (74-99) mg/dL Plasma Lactic Acid Gio (0.7-2.0) mmol/L Calcium 7.5 L (8.4-10.2) mg/dL Magnesium (1.6-2.3) mg/dL Lactate Dehydrogenase (313-618) U/L Troponin I 0.067 H* (0.000-0.034) ng/mL C-Reactive Protein (<10.0) mg/L Total Protein (6.3-8.2) g/dL Albumin (3.5-5.0) g/dL Urine Protein (Negative) Urine Blood (Negative) Ur Leukocyte Esterase (Negative) Urine RBC (0-5) /hpf Urine WBC (0-5) /hpf Amorphous Sediment (None) /hpf Urine Bacteria (None) /hpf Hyaline Casts (0-2) /lpf Urine Mucus (None) /hpf Coronavirus (PCR) (Not Detectd) Microbiology - Last 24 Hours (Table) 04/02/20 18:47 Urine Culture - Preliminary Urine,Voided Thrombosis Risk Factor Assmnt - Choose All That Apply Any of the Below Risk Factors Present?: Yes Each Factor Represents 1 point: Abnormal pulmonary function (COPD), Medical pt on bed rest Other Risk Factors: Yes Each Risk Factor Represents 2 Points: Patient confined to bed Each Risk Factor Represents 3 Points: Age 75 years or older Other congenital or acquired thrombophilia - If yes, enter type in comment: No Thrombosis Risk Factor Assessment Total Risk Factor Score: 7 Thrombosis Risk Factor Assessment Level: High Risk Assessment and Plan Assessment: Acute Covid Pneumonia, T-max 103 Syncope reported at [facility] secondary to the above. Possible acute UTI, cultures pending Recently discharged with Sepsis secondary to pseudomonas aeruginosa pneumonia and MRSA with pseudomonas aeruginosa of chronic right foot wound , chronic stage II sacral pressure ulcer. Reported altered mental status, possible acute metabolic encephalopathy, resolved. Acute hypoxic respiratory failure secondary to the above. Subacute rehab reported desating down to the low 50s to high 80s on 3 L nasal cannula per ER r eport. Acute on chronic hypoxic respiratory failure secondary to the above, in a patient with severe COPD. Bilateral lung nodules, outpatient PET scan with pulmonary recommended Possible mass at the GE junction, however EGD reported no apparent mass,small paraesophageal hernia, presbyesophagus, mild gastritis. History of Sujit fundoplication CAD, history of RI, CABG Chronic atrial fibrillation, anticoagulated with Xarelto Chronic CHF, EF currently unknown Hypertension Hypothyroidism Degenerative joint disease Chronic back pain History of nicotine dependence Hypokalemic Plan: Continue on current medication regime ,monitoring and symptomatic treatment. Potassium supplements ordered with recheck this afternoon. Antibiotics and Wound care as per ID. Offload left heel. Blood and urine cultures obtained, pending.Pulmonary and infectious disease consults in place, recommendations pending. PT/OT. Prognosis guarded given multiple complex medical issues. The impression and plan of care has been dictated as directed. : I performed a history and examination of this patient, discussed the same with the dictator. I agree with the dictator's note ,documented as a scribe. Any additional findings or plans will be noted.
--- NOTE | 2020-04-03 16:13 | CONS ---
CONSULTATION PULMONARY/CRITICAL CARE CONSULTATION: DATE OF CONSULTATION: April 03, 2020 REASON FOR CONSULTATION: Mental status changes. This is an 80-year-old male who was recently inpatient here. The patient has a history of multiple medical problems including prior wound infections of the lower extremities, Pseudomonas aeruginosa pneumonia, bacteremia, COPD, atrial fibrillation, among other things, who was transferred recently from [facility] back to the emergency room to be evaluated. Apparently the patient was apparently weak or fainted while being transferred from the bathroom. He apparently was tested at the half-way for COVID and was apparently found to be positive. His saturations currently on a couple liters are about 94% to 95% , which is his baseline. He wears oxygen anyway. He says he is not having any respiratory issues whatsoever. He is not sure why they admitted him to the hospital again. He denies any chest pain or chest discomfort. Denies any fever or chills. There is no nausea, vomiting, diarrhea, or abdominal pain. He denies any genitourinary complaints. Again, he denies all pulmonary complaints. He does have shortness of breath on exertion, which is chronic and unchanged. He denies any cough, phlegm production, hemoptysis, or sputum production. He was recently here between March 24 and March 28 or so. MEDICATIONS: Medications at home include Xarelto, Lasix Advair, Spiriva, Lipitor, multivitamins, albuterol updrafts, vitamin C, calcium carbonate, vitamin D3, vitamin B12, ciprofloxacin, doxycycline, famotidine, gabapentin, milk of magnesia, metoprolol, Fleet's enema, and Dulcolax. ALLERGIES: Allergies are denied. MEDICAL HISTORY: Medical history includes atrial fibrillation, CHF, COPD, hypertension, myocardial infarction, osteoarthritis, Pseudomonas aeruginosa pneumonia, hypothyroidism, history of colonic polyps, right breast mass, aspiration pneumonia, chronic hypoxemic respiratory failure, chronic back pain, and chronic wounds and nonhealing ulcers to the lower extremities. The patient also has a prior history of MRSA infection back in February. SURGICAL HISTORY: Surgical history includes bypass grafting, back surgery, left carpal tunnel surgery, right carpal tunnel surgery, bilateral knee arthroscopy, bilateral hip replacement, Nicholas fundoplication, right shoulder rotator cuff surgery, and history of epidural injections for pain control. SOCIAL HISTORY: Positive for previous heavy tobacco use. Does not smoke currently. Denies any alcohol use or illicit drug use. FAMILY HISTORY: Positive for mother and father's health history that he is not aware of. He has a daughter that had cancer. REVIEW OF SYSTEMS: CONSTITUTIONAL: Negative. NEUROLOGIC: Negative. HEENT: Negative. CARDIOVASCULAR: Negative. PULMONARY: Negative. GI: Negative. : Negative. RHEUMATOLOGIC: Negative. IMMUNOLOGIC: Negative. ENDOCRINOLOGIC: Negative. DERMATOLOGIC: Negative. He currently denies all complaints. The only complaint noted was the fall or the near- syncope that occurred when he was at the half-way. He denies it, though. PHYSICAL EXAMINATION: VITAL SIGNS: Current vital signs are reviewed. Temperature is 98, heart rate 72, respiratory rate 22, , blood pressure 93/57, mean 69 and 3 L saturation 97%. GENERAL: He appears in no acute distress. HEENT: Examination is grossly unremarkable. NECK: Supple. Full range of motion. No adenopathy. Neck veins are flat. CARDIOVASCULAR: Examination reveals regular rhythm and rate. Heart rate mid 70s. S1, S2 normal. Heart sounds are distant. LUNGS: Reveal mostly clear breath sounds. A few scattered mild rhonchi. No wheezes. Breath sounds equal, but diminished throughout. ABDOMEN: Soft. EXTREMITIES: Reveal his lower extremities to be wrapped where his wounds are. SKIN: Without rash. NEUROLOGIC: Examination is nonfocal. LABS: Labs are reviewed. White count 3.3, hemoglobin 7.6, hematocrit 23.7, platelet count 135,000. Sodium 139, potassium 2.9, chloride 99, CO2 is 37. Anion gap is 3. BUN and creatinine were 32 and 0.94. His troponins were 0.059 and 0.067. His urine looked suspicious for infection. There is 2+ protein, large blood, large leukocyte esterase, greater than 182 RBCs, 38 WBCs and occasional bacteria. His COVID test was positive. Current microbiology is negative. A chest x-ray shows some chronic interstitial changes but nothing acute. CURRENT MEDICATIONS: Current medications are reviewed. He is on Tylenol, albuterol inhaler, vitamin C, Lipitor, Dulcolax suppositories, Symbicort, calcium carbonate, vitamin D3, ciprofloxacin, vitamin B12, doxycycline which will be discontinued, famotidine, Lasix, gabapentin, ibuprofen, milk of magnesia, magnesium protocol for replacement, metoprolol, morphine sulfate, multivitamins, Narcan, Percocet, Protonix, potassium replacement, Xarelto and Spiriva. ASSESSMENT: 1. COVID-19 infection without obvious worsening of the patient's chronic respiratory status. 2. Probable urinary tract infection, which likely explains the patient's fever. 3. Recent episode of Pseudomonas aeruginosa pneumonia, discharged on ciprofloxacin. 4. Chronic nonhealing ulcers and wounds of the lower extremities, being followed by the wound center and Infectious Diseases. 5. History of atrial fibrillation. 6. History of congestive heart failure. 7. Chronic obstructive pulmonary disease from previous heavy tobacco use. 8. Hypertension. 9. Prior history of myocardial infarction in 1987. 10.Osteoarthritis. 11.History of aspiration pneumonia. 12.Hypothyroidism. 13.History of bilateral breast masses. 14.History of colon polyps. 15.Chronic hypoxemic respiratory failure. 16.History of aspiration pneumonia. 17.Chronic back pain. 18.Multiple other medical problems and comorbidities. PLAN: The patient is currently on ciprofloxacin. This should handle his Pseudomonas lung infection as well as what is brewing in his urinary tract. From the pulmonary standpoint, he is stable. I do not believe he needs anything special for that. He is not having any new or unusual respiratory issues. We will continue to follow. Prognosis is guarded. Additional recommendations and suggestions are forthcoming. MMODL / IJN: [id number] /
[2020-04-03] MEDS: PANTOPRAZOLE 40 MG/10 ML VIAL IVP SCH (17:26)
[2020-04-03] MEDS: MULTIVITAMINS, THERA 1 EACH TAB PO SCH (17:27)
[2020-04-03] MEDS: CYANOCOBALAMIN 500 MCG TAB PO SCH (17:27)
[2020-04-03] MEDS: CHOLECALCIFEROL 1,000 UNIT TAB PO SCH (17:27)
[2020-04-03] MEDS: ASCORBIC ACID 500 MG TAB PO SCH (17:27)
[2020-04-03] MEDS: CALCIUM CARBONATE 500 MG CHEWABLE PO SCH (17:27)
[2020-04-03] MEDS: ATORVASTATIN 40 MG TAB PO SCH (19:47)
[2020-04-03] MEDS: CEFEPIME 2 GM in SODIUM CHLORIDE 0.9% 100 ML IVPB SCH (21:41)
--- NOTE | 2020-04-03 23:46 | CONS ---
CONSULTATION DATE OF SERVICE: 04/03/2020. REASON FOR CONSULTATION: Fever. HISTORY OF PRESENT ILLNESS: The patient is an 80-year-old male who was recently admitted to this facility for almost 10 days in this patient who did have evidence of Pseudomonas aeruginosa pneumonia. Treated with IV cefazolin. Subsequently discharged to the alf on oral Cipro the patient was taking while at the alf. The patient has been diagnosed with COVID-19 pneumonia. The patient has been sent to the ER at [facility] last evening for evaluation of faintness. Apparently, the patient fainted while being transferred from the bathroom. There is no history of any fall or loss of consciousness and the patient has been running a fever at this facility for the last few days. The patient also noticed to be hypoxic in this patient on presentation to the hospital who did have a fever of 103 degrees Fahrenheit. He is afebrile this morning. The patient has been on O2, currently 97% on 3 nasal cannula. The patient did have a normal white count with lymphopenia. D-dimer was mildly elevated. Creatinine was normal. Troponin elevated. Liver enzymes are normal. LDH/CRP elevated. Procalcitonin 0.09. The patient did have positive urine and Torres PCR was positive. The patient has been continued on Cipro. Chest x-ray pulmonary fibrotic changes. No acute lung disease. No change. Infectious disease was consulted for further management and of his fever and need for antibiotic therapy. The patient is not a very good historian. So most of the information has been obtained from review of the chart. The patient currently denies having any headache or URI symptoms. Denies any chest pain. Minimal shortness of breath. Occasional cough. No abdominal pain. No diarrhea. REVIEW OF SYSTEMS: Positive points have been mentioned in HPI. Rest of systems negative. PAST MEDICAL HISTORY: Significant for atrial fibrillation, heart failure, COPD, hypertension, PR, pneumonia with recent Pseudomonas pneumonia. PAST SURGICAL HISTORY: Back surgery, coronary artery bypass grafting, bilateral hip replacement. SOCIAL HISTORY: Remote history of smoking. No drinking, drug use. FAMILY HISTORY: Daughter with a history of cancer. ALLERGIES: No known drug allergies. MEDICATIONS: Include the patient is currently on Tylenol, Ventolin, vitamin C, and Lipitor, Dulcolax, Symbicort, TUMS, Cipro, vitamin D3, vitamin B12, Lasix, Neurontin, Motrin, Lopressor, morphine sulfate, Narcan, Protonix, Xarelto, Spiriva. PHYSICAL EXAMINATION: Blood pressure 100/148 with a pulse of 74, temperature 98.1. He is 97% on 3 L nasal cannula. General description is an elderly male lying in bed in no distress. No tachypnea or accessory muscle of respiration use. HEENT: Examination shows slight pallor. No scleral icterus. Oral mucous membrane is dry. Neck: Trachea midline. Lungs unlabored breathing, decreased breath sounds in the bases. No wheeze. Heart S1, S2. Regular rate and rhythm. ABDOMEN: Soft, no tenderness. No guarding. No rigidity. Extremities: No edema of the feet. The patient did have a significant pressure ulcer to the left heel area that is new, patient right lateral malleolar wound with no significant slough tissue or surrounding redness. The patient did have a stage III sacral pressure ulcer, some slough tissue. No surrounding redness. Neurologically patient is awake, alert, oriented times three. Mood and affect normal. LABS: Hemoglobin 7.8, white count 3.3, BUN of 33, creatinine 1.09. Electrolytes have been normal. Lactic acid 2.1. Liver enzymes are normal. Urine has been positive. DIAGNOSTIC IMPRESSION AND PLAN: 1. Patient admitted to the hospital with fever, source is multifactorial in this patient with likely component of urinary tract infection, possible catheter associated and need to cover for resistant gram-negative pathogen in this patient who was currently on oral Cipro with high clinical suspicious for possible Cipro resistant pathogen. 2. Patient also has Covid 19 diagnosis and some of his fever could be related to the same. 3. Patient who did have multiple pressure ulcers, but no significant cellulitis noticed associated with these ulcers. PLAN: 1. Discontinue Cipro. 2. Start cefepime 2 grams q.12 hours. 3. Change Bowman catheter, new culture from new Bowman. 4. Heel protector to bilateral heel pressure ulcer. 5. Aquacel silver dressing to right lateral wound and Santyl to the sacral wound. Keep the area dry and off the pressure. 6. We will follow up on clinical condition and culture to further adjust medication if needed. Thank you for this consultation. We will follow this patient along with you. MMODL / IJN: [id number] /
[2020-04-04 08:11] LABS: Basophils % (A) 1 %; Eosinophils % (A) 1 %; HCT 28.2 % (39.0-53.0); HGB 8.6 gm/dL (13.0-17.5); Hypochromasia Moderate; Lymphocytes # (A) 1.2 k/uL (1.0-4.8); Lymphocytes % (A) 23 %; MCH 26.1 pg (25.0-35.0); MCHC 30.7 g/dL (31.0-37.0); Mean Platelet Volume 7.5; Monocytes # (A) 0.4 k/uL (0-1.0); Monocytes % (A) 8 %; Neutrophils # (A) 3.2 k/uL (1.3-7.7); Neutrophils % (A) 64 %; Platelet Count 141 k/uL (150-450); RBC 3.32 m/uL (4.30-5.90); RDW 15.4 % (11.5-15.5); WBC 4.9 k/uL (3.8-10.6)
[2020-04-04] MEDS: ALBUTEROL HFA INHALER INHALATION SCH ×4 (08:25→19:28)
[2020-04-04] MEDS: SYMBICORT 80-4.5 MCG INHALER INHALATION SCH ×2 (08:25→19:28)
[2020-04-04] MEDS: FAMOTIDINE 20 MG TAB PO SCH ×2 (08:39→19:51)
[2020-04-04] MEDS: RIVAROXABAN 20 MG TAB PO SCH (08:39)
[2020-04-04] MEDS: METOPROLOL TARTRATE 12.5 MG TAB PO SCH ×2 (08:39→16:00)
[2020-04-04] MEDS: GABAPENTIN 300 MG CAP PO SCH ×2 (08:39→16:00)
[2020-04-04] MEDS: PANTOPRAZOLE 40 MG/10 ML VIAL IVP SCH (08:39)
[2020-04-04] MEDS: FUROSEMIDE 40 MG TAB PO SCH (08:39)
[2020-04-04] MEDS: CEFEPIME 2 GM in SODIUM CHLORIDE 0.9% 100 ML IVPB SCH ×2 (08:39→19:51)
[2020-04-04 08:49] LABS: Calcium 8.2 mg/dL (8.4-10.2)
[2020-04-04] MEDS: ACETAMINOPHEN TAB 325 MG TAB PO PRN ×2 (09:04→15:58)
[2020-04-04] MEDS: TIOTROPIUM 2.5 MCG INHALER INHALATION SCH (11:55)
--- NOTE | 2020-04-04 12:05 | P.PN ---
Subjective Progress Note Date: 04/04/20 Principal diagnosis: History of Covid 19 pneumonia, with signs of worsening of patient's chronic respiratory status This is a 80-year-old white male patient with multiple chronic medical conditions, and a recent hospitalization for COVID19 pneumonia, and sepsis related to pseudomonal pneumonia, in addition to sepsis related to his chronic nonhealing ulcers and wounds of the lower extremities, and sacrum. Patient was treated with IV antibiotics while he was in the hospital, he was discharged to [facility] where he completed his antibiotics with oral ciprofloxacin. His culture d cristiane from his previous admission showed a sputum culture positive for pseudomonas aeruginosa on 03/20/2020 and a right foot wound culture positive for MRSA and pseudomonas aeruginosa. Patient was brought back to the emergency department on 03/25/2020 for evaluation of weakness, patient had a fainting episode while he was being transferred from the bathroom, patient was also febrile on presentation, his chest x-ray showed fibrotic changes, no acute lung disease, no change compared to his most recent chest x-ray from 03/21/2020. Clinically patient denies any chest pain, denies any worsening in terms of his chronic shortness of breath, he does have congestive cough, nonproductive and not much sputum. Yesterday we reconsult infectious disease service and patient was placed back on cefepime by Dr. Fonteont. His COVID 19 PCR was again positive, urine and blood cultures so far have shown no growth. On today's exam patient is a comfortable, in no acute respiratory distress, his labs have been reviewed, showing white blood cell count of 4.9, hemoglobin is 8.6, his electrolytes are unremarkable for the most part except for CO2 which is at 39, BUN is 36, creatinine 1.05 Objective - Vital Signs Vital signs: Vital Signs Temp 99.8 F H 04/04/20 11:51 Pulse 77 04/04/20 11:51 Resp 18 04/04/20 11:51 BP 93/64 04/04/20 11:51 Pulse Ox 97 04/04/20 11:51 Intake & Output 04/03/20 04/04/20 04/04/20 18:59 06:59 18:59 Intake Total 660 Output Total 1250 570 Balance -590 -570 Weight 78.5 kg 75.5 kg Intake: Oral 660 Output: Urine 1250 570 Other: Voiding Method Indwelling Catheter Indwelling Catheter Indwelling Catheter - Exam GENERAL EXAM: Alert, very pleasant, 80-year-old white male, on 3 L of oxygen and the pulse ox of 97% comfortable in no apparent distress. HEAD: Normocephalic/atraumatic. EYES: Normal reaction of pupils, equal size. Conjunctiva pink, sclera white. NOSE: Clear with pink turbinates. THROAT: No erythema or exudates. NECK: No masses, no JVD, no thyroid enlargement, no adenopathy. CHEST: No chest wall deformity. Symmetrical expansion. LUNGS: Equal air entry with no crackles, wheeze, rhonchi or dullness. CVS: Regular rate and rhythm, normal S1 and S2, no gallops, no murmurs, no rubs ABDOMEN: Soft, nontender. No hepatosplenomegaly, normal bowel sounds, no guarding or rigidity. EXTREMITIES: No clubbing, no edema, no cyanosis, 2+ pulses and upper and lower extremities. MUSCULOSKELETAL: Muscle strength and tone normal. SPINE: No scoliosis or deformity SKIN: No rashes, bilateral lower extremity is covered with dressings, patient has a sacral dressing CENTRAL NERVOUS SYSTEM: Alert and oriented -3. No focal deficits, tone is normal in all 4 extremities. PSYCHIATRIC: Alert and oriented -3. Appropriate affect. Intact judgment and insight. - Labs CBC & Chem 7: 04/04/20 07:51 04/04/20 07:51 Labs: Abnormal Lab Results - Last 24 Hours (Table) 04/04/20 04/04/20 Range/Units 07:51 07:51 RBC 3.32 L (4.30-5.90) m/uL Hgb 8.6 L (13.0-17.5) gm/dL Hct 28.2 L (39.0-53.0) % MCHC 30.7 L (31.0-37.0) g/dL Plt Count 141 L (150-450) k/uL Carbon Dioxide 39 H (22-30) mmol/L BUN 36 H (9-20) mg/dL Glucose 105 H (74-99) mg/dL Calcium 8.2 L (8.4-10.2) mg/dL Microbiology - Last 24 Hours (Table) 04/02/20 17:50 Blood Culture - Preliminary Blood No Growth after 24 hours 04/02/20 17:43 Blood Culture - Preliminary Blood No Growth after 24 hours 04/02/20 18:47 Urine Culture - Final Urine,Voided Assessment and Plan Plan: Assessment: #1. Covid 19 infection without obvious worsening of the patient's chronic respiratory status, patient had a recent admission for Covid 19 related pneumonitis, chest x-ray shows no acute findings, and shows chronic interstitial changes #2. Probable urinary tract infection, urine culture was negative #3. Recent episode of pseudomonas aeruginosa pneumonia, discharged to [facility] on ciprofloxacin #4. Chronic nonhealing ulcers and wounds of the lower extremities and sacrum, wound culture of the right foot was positive for MRSA and Pseudomonas #5. History of atrial fibrillation on Xarelto #6. History of congestive heart failure #7. Chronic obstructive pulmonary disease, previous heavy tobacco use #8. Hypertension #9. History of myocardial infarction in 1987 #10. Osteoarthritis #11. History of bilateral breast masses #12. Hypothyroidism #13. History of colon polyps #14. Chronic hypoxemic respiratory failure related to COPD #15. History of aspiration pneumonia #16. Chronic back pain Plan: Continue current medical treatment, patient has been started on cefepime by ID service, febrile pattern has improved although still having some low-grade fevers, no worsening in his pulmonary status, does have congestive cough, continue bronchodilators, continue oral anticoagulation. Continue to follow I performed a history & physical examination of the patient and discussed their management with my nurse practitioner, Ele Brown. I reviewed the nurse practitioner's note and agree with the documented findings and plan of care. Lung sounds are positive for diminished breath sounds.. The findings and the im pression was discussed with the patient. I attest to the documentation by the nurse practitioner. Time with Patient: Less than 30
--- NOTE | 2020-04-04 15:14 | P.PN ---
Subjective Progress Note Date: 04/04/20 Patient was recently discharged from the hospital with sepsis secondary to pseudomonas aeruginosa pneumonia and MRSA with pseudomonas aeruginosa of chronic right foot wound, chronic stage II sacral pressure ulcer ,acute on chronic hypoxic respiratory failure secondary to COPD exacerbation, had tested previ ously negative for covid, and discharged to subacute rehab. Patient presented to the ER with positive Covid testing from [facility], T-max 103, currently afebrile. [facility] reported patient also fainted while being transferred from the bathroom -denied fall/injury/trauma. Wearing 4 L nasal cannula to maintain O2 sats in the 90s. Chest x-ray reporting pulmonary fibrotic changes, no change, no acute lung disease. EKG recording atrial fibrillation, right bundle branch block, troponin 0.059, 0.067. INR 1.7, d-dimer 1.18.LDH 661,CK 75,CRP 63, ferritin 156.4. Pro-calcitonin 0.09. Potassium 2.9, BUN 32, creatinine 0.94. Hemoglobin 9, admission, currently 7.6. Anticoagulated on Xarelto. WBC on admission 5.2, currently 3.3. UA occasional bacteria, WBC 38, large leukocytes, negative for nitrates, culture pending. Blood sugars controlled in the low 100s to 110s. Received antibiotics and IV fluids. 04/04/2020 maintained on cefepime as per ID. Reports rough night, chills last night, with diaphoresis. Tired this morning T-max 99.8, normal WBC. Hemoglobin 8.6. Creatinine 1.05. Potassium supplemented yesterday, today normal. Maintain O2 sats in the 90s 3 L nasal cannula . Objective - Vital Signs Vital signs: Vital Signs Temp 99.8 F H 04/04/20 11:51 Pulse 77 04/04/20 13:26 Resp 18 04/04/20 13:26 BP 93/64 04/04/20 11:51 Pulse Ox 97 04/04/20 11:51 Intake & Output 04/03/20 04/04/20 04/04/20 18:59 06:59 18:59 Intake Total 660 120 Output Total 1250 570 250 Balance -590 -570 -130 Weight 78.5 kg 75.5 kg Intake: Oral 660 120 Output: Urine 1250 570 250 Other: Voiding Method Indwelling Catheter Indwelling Catheter Indwelling Catheter - Exam PHYSICAL EXAM: VITAL SIGNS: As above GENERAL: Sitting up in bed, no acute distress. HEENT: Conjunctivae normal. eyes normal. NECK: No JVD. No thyroid enlargement. CARDIOVASCULAR: S1, S2 regular. No murmur RESPIRATION: Breath sounds diminished in the bases.Raspy/ Coarse scattered rhonchi, no crackles. No wheezing ABDOMEN: Soft, nontender . No guarding. no masses palpable. Positive Bowel sounds heard. LEGS: No edema. no swelling PSYCHIATRY: Alert and oriented X3, mood and affect normal. NERVOUS SYSTEM: Cranial N 2-12 grossly normal. Moves all 4 limbs. Diffuse weakness, No focal deficits. Strength and sensation grossly intact.. Skin: Right foot dressing clean dry and intact, chronic stage III sacral pressure ulcer dressing clean dry and intact - Labs CBC & Chem 7: 04/04/20 07:51 04/04/20 07:51 Labs: Abnormal Lab Results - Last 24 Hours (Table) 04/04/20 04/04/20 Range/Units 07:51 07:51 RBC 3.32 L (4.30-5.90) m/uL Hgb 8.6 L (13.0-17.5) gm/dL Hct 28.2 L (39.0-53.0) % MCHC 30.7 L (31.0-37.0) g/dL Plt Count 141 L (150-450) k/uL Carbon Dioxide 39 H (22-30) mmol/L BUN 36 H (9-20) mg/dL Glucose 105 H (74-99) mg/dL Calcium 8.2 L (8.4-10.2) mg/dL Microbiology - Last 24 Hours (Table) 04/02/20 17:50 Blood Culture - Preliminary Blood No Growth after 24 hours 04/02/20 17:43 Blood Culture - Preliminary Blood No Growth after 24 hours 04/02/20 18:47 Urine Culture - Final Urine,Voided Assessment and Plan Assessment: Acute Covid infection, T-max 103 Syncope reported at [facility] secondary to the above. Possible acute UTI, cultures negative. Recently discharged with Sepsis secondary to pseudomonas aeruginosa pneumonia and MRSA with pseudomonas aeruginosa of chronic right foot wound , chronic stage III sacral pressure ulcer. Reported altered mental status, possible acute metabolic encephalopathy, resolved. Acute hypoxic respiratory failure secondary to the above. Subacute rehab reported desating down to the low 50s to high 80s on 3 L nasal cannula per ER report. Acute on chronic hypoxic respiratory failure secondary to the above, in a patient with severe COPD. Bilateral lung nodules, outpatient PET scan with pulmonary recommended Possible mass at the GE junction, however EGD reported no apparent mass,small paraesophageal hernia, presbyesophagus, mild gastritis. History of Sujit fundoplication CAD, history of MN, CABG Chronic atrial fibrillation, anticoagulated with Xarelto Chronic CHF, EF currently unknown Hypertension Hypothyroidism Degenerative joint disease Chronic back pain History of nicotine dependence Hypokalemic Plan: Continue on current medication regime ,monitoring and symptomatic treatment. Covid regimen. Antibiotics and Wound care as per ID. Blood cultures pending.PT/OT. Prognosis guarded given multiple complex medical issues. The impression and plan of care has been dictated as directed. : I performed a history and examination of this patient, discussed the same with the dictator. I agree with the dictator's note ,documented as a scribe. Any additional findings or plans will be noted.
[2020-04-04] MEDS: CYANOCOBALAMIN 500 MCG TAB PO SCH (16:00)
[2020-04-04] MEDS: CALCIUM CARBONATE 500 MG CHEWABLE PO SCH (16:00)
[2020-04-04] MEDS: CHOLECALCIFEROL 1,000 UNIT TAB PO SCH (16:00)
[2020-04-04] MEDS: MULTIVITAMINS, THERA 1 EACH TAB PO SCH (16:00)
[2020-04-04] MEDS: ASCORBIC ACID 500 MG TAB PO SCH (16:00)
[2020-04-04] MEDS: ATORVASTATIN 40 MG TAB PO SCH (19:51)
[2020-04-04] MEDS: oxyCODONE-APAP 10-325MG 1 EACH TAB PO PRN (19:51)
--- NOTE | 2020-04-04 22:47 | PN ---
PROGRESS NOTE DATE OF SERVICE: 04/04/2020 REASON FOR FOLLOWUP: Fever and concern for UTI/COVID-19 infection. INTERVAL HISTORY: The patient did spike another fever of 102 this afternoon. The patient has been afebrile since then. The patient is breathing comfortably. Denies having any chest pain or shortness of breath. Occasional cough. No abdominal pain or diarrhea. PHYSICAL EXAMINATION: Blood pressure 113/65, pulse of 73, temperature 102.9. He is 96% on 3 L nasal cannula. General description is an elderly male lying in bed in no distress. RESPIRATORY SYSTEM: Unlabored breathing with decreased intensity of breath sounds. No wheeze. HEART: S1, S2. Regular rate and rhythm. ABDOMEN: Soft. No tenderness. LABS: Hemoglobin 8.6, white count 4.9. BUN of 36, creatinine 1.05. DIAGNOSTIC IMPRESSION AND PLAN: Patient with fever and concern about urinary tract infection/COVID-19 infection. Patient is covered with cefepime. Will recheck his inflammatory markers and chest x- ray tomorrow and monitor his clinical course closely. MMODL / IJN: [id number] /
[2020-04-05] MEDS: PANTOPRAZOLE 40 MG TABLET PO SCH (06:11)
[2020-04-05 07:13] LABS: Basophils % (A) 0 %; Eosinophils % (A) 1 %; HCT 25.7 % (39.0-53.0); HGB 8.1 gm/dL (13.0-17.5); Hypochromasia Marked; Lymphocytes # (A) 0.9 k/uL (1.0-4.8); Lymphocytes % (A) 34 %; MCH 27.1 pg (25.0-35.0); MCHC 31.7 g/dL (31.0-37.0); MCV 85.6 fL (80.0-100.0); Mean Platelet Volume 8.2; Monocytes # (A) 0.3 k/uL (0-1.0); Monocytes % (A) 10 %; Neutrophils # (A) 1.4 k/uL (1.3-7.7); Neutrophils % (A) 52 %; Platelet Count 111 k/uL (150-450); RBC 3.01 m/uL (4.30-5.90); RDW 15.4 % (11.5-15.5); WBC 2.6 k/uL (3.8-10.6)
[2020-04-05 07:39] LABS: Albumin 2.5 g/dL (3.5-5.0); Potassium 3.9 mmol/L (3.5-5.1); Total Bilirubin 0.4 mg/dL (0.2-1.3); Total Protein 5.4 g/dL (6.3-8.2)
[2020-04-05] MEDS: SYMBICORT 80-4.5 MCG INHALER INHALATION SCH ×2 (08:11→19:34)
[2020-04-05] MEDS: ALBUTEROL HFA INHALER INHALATION SCH ×4 (08:11→19:33)
[2020-04-05] MEDS: TIOTROPIUM 2.5 MCG INHALER INHALATION SCH (08:12)
[2020-04-05] MEDS: FAMOTIDINE 20 MG TAB PO SCH ×2 (08:25→20:37)
[2020-04-05] MEDS: FUROSEMIDE 40 MG TAB PO SCH (08:25)
[2020-04-05] MEDS: GABAPENTIN 300 MG CAP PO SCH ×2 (08:25→16:36)
[2020-04-05] MEDS: RIVAROXABAN 20 MG TAB PO SCH (08:25)
[2020-04-05] MEDS: CEFEPIME 2 GM in SODIUM CHLORIDE 0.9% 100 ML IVPB SCH (08:26)
[2020-04-05] MEDS: METOPROLOL TARTRATE 12.5 MG TAB PO SCH ×2 (08:26→16:37)
[2020-04-05] MEDS: oxyCODONE-APAP 10-325MG 1 EACH TAB PO PRN (08:32)
--- NOTE | 2020-04-05 09:09 | XR ---
EXAMINATION TYPE: XR chest 1V portable DATE OF EXAM: 04/05/2020 COMPARISON: 04/02/2020 HISTORY: Shortness of breath TECHNIQUE: Single frontal view of the chest is obtained. FINDINGS: Diffuse hyperinflation correlate for COPD. Arthropathy of the shoulders. Heart enlarged. P ostoperative change seen. Atherosclerotic change aorta. Increasing area of consolidation lateral ana in right upper lobe. Interstitial pattern stable. IMPRESSION: 1. COPD with increasing localized area of infiltrate in the right upper lobe correlate for pneumonia. 2. Correlate for chronic interstitial lung disease (pulmonary fibrosis) or interstitial pneumonitis
[2020-04-05 10:34] LABS: C Reactive Protein 130.1 mg/L (<10.0)
[2020-04-05] MEDS: COLLAGENASE 250 UNIT/GM OINTMENT 30 GM TUBE TOPICAL SCH (11:06)
[2020-04-05] MEDS: ZINC SULFATE 220 MG CAP PO SCH (11:06)
--- NOTE | 2020-04-05 15:14 | P.PN ---
Subjective Progress Note Date: 04/05/20 Principal diagnosis: History of Covid 19 pneumonia, with signs of worsening of patient's chronic respiratory status This is a 80-year-old white male patient with multiple chronic medical conditions, and a recent hospitalization for COVID19 pneumonia, and sepsis related to pseudomonal pneumonia, in addition to sepsis related to his chronic nonhealing ulcers and wounds of the lower extremities, and sacrum. Patient was treated with IV antibiotics while he was in the hospital, he was discharged to [facility] where he completed his antibiotics with oral ciprofloxacin. His culture d cristiane from his previous admission showed a sputum culture positive for pseudomonas aeruginosa on 03/20/2020 and a right foot wound culture positive for MRSA and pseudomonas aeruginosa. Patient was brought back to the emergency department on 03/25/2020 for evaluation of weakness, patient had a fainting episode while he was being transferred from the bathroom, patient was also febrile on presentation, his chest x-ray showed fibrotic changes, no acute lung disease, no change compared to his most recent chest x-ray from 03/21/2020. Clinically patient denies any chest pain, denies any worsening in terms of his chronic shortness of breath, he does have congestive cough, nonproductive and not much sputum. Yesterday we reconsult infectious disease service and patient was placed back on cefepime by Dr. Fontenot. His COVID 19 PCR was again positive, urine and blood cultures so far have shown no growth. On today's exam patient is a comfortable, in no acute respiratory distress, his labs have been reviewed, showing white blood cell count of 4.9, hemoglobin is 8.6, his electrolytes are unremarkable for the most part except for CO2 which is at 39, BUN is 36, creatinine 1.05 On 04/05/2020 patient seen in follow-up on selective care unit, he is resting comfortably in bed, breathing comfortably, no significant cough, no compressive chest pain, no hemoptysis, vital signs have been stable, follow-up chest x-ray today shows COPD with increasing localized area of infiltrate in the right upper lobe, chronic interstitial lung disease, pulmonary fibrosis or interstitial pneumonitis. Clinically patient has been stable, no altered mentation, no fever today, his last episode of fever was yesterday with a temp of 102.9F. Urine and blood cultures have been negative. Is currently on Zosyn per ID service recommendations. At that recent wound cultures positive for MRSA and Pseudomonas, and sputum cultures positive for pseudomonas. Clinically patient is improving. Objective - Vital Signs Vital signs: Vital Signs Temp 98.0 F 04/05/20 11:49 Pulse 67 04/05/20 12:59 Resp 18 04/05/20 12:59 BP 95/60 04/05/20 11:49 Pulse Ox 90 L 04/05/20 11:49 Intake & Output 04/04/20 04/05/20 04/05/20 18:59 06:59 18:59 Intake Total 470 780 Output Total 900 340 200 Balance -430 -340 580 Weight 76.5 kg Intake: Oral 470 780 Output: Urine 900 340 200 Other: Voiding Method Indwelling Catheter Indwelling Catheter Indwelling Catheter # Voids 1 - Exam GENERAL EXAM: Alert, very pleasant, 80-year-old white male, on 3 L of oxygen and the pulse ox of 90% comfortable in no apparent distress. HEAD: Normocephalic/atraumatic. EYES: Normal reaction of pupils, equal size. Conjunctiva pink, sclera white. NOSE: Clear with pink turbinates. THROAT: No erythema or exudates. NECK: No masses, no JVD, no thyroid enlargement, no adenopathy. CHEST: No chest wall deformity. Symmetrical expansion. LUNGS: Equal air entry with no crackles, wheeze, rhonchi or dullness. CVS: Regular rate and rhythm, normal S1 and S2, no gallops, no murmurs, no rubs ABDOMEN: Soft, nontender. No hepatosplenomegaly, normal bowel sounds, no guarding or rigidity. EXTREMITIES: No clubbing, no edema, no cyanosis, 2+ pulses and upper and lower extremities. MUSCULOSKELETAL: Muscle strength and tone normal. SPINE: No scoliosis or deformity SKIN: No rashes, bilateral lower extremity is covered with dressings, patient has a sacral dressing CENTRAL NERVOUS SYSTEM: Alert and oriented -3. No focal deficits, tone is normal in all 4 extremities. PSYCHIATRIC: Alert and oriented -3. Appropriate affect. Intact judgment and insight. - Labs CBC & Chem 7: 04/05/20 06:59 04/05/20 06:59 Labs: Abnormal Lab Results - Last 24 Hours (Table) 04/05/20 04/05/20 04/05/20 Range/Units 06:59 06:59 06:59 WBC 2.6 L (3.8-10.6) k/uL RBC 3.01 L (4.30-5.90) m/uL Hgb 8.1 L (13.0-17.5) gm/dL Hct 25.7 L (39.0-53.0) % Plt Count 111 L (150-450) k/uL Lymphocytes # 0.9 L (1.0-4.8) k/uL Carbon Dioxide 37 H (22-30) mmol/L BUN 39 H (9-20) mg/dL Calcium 8.0 L (8.4-10.2) mg/dL C-Reactive Protein 130.1 H (<10.0) mg/L Total Protein 5.4 L (6.3-8.2) g/dL Albumin 2.5 L (3.5-5.0) g/dL Procalcitonin 0.15 H (0.02-0.09) ng/mL Microbiology - Last 24 Hours (Table) 04/02/20 17:50 Blood Culture - Preliminary Blood No Growth after 48 hours 04/02/20 17:43 Blood Culture - Preliminary Blood No Growth after 48 hours Assessment and Plan Plan: Assessment: #1. Covid 19 infection without obvious worsening of the patient's chronic respiratory status, patient had a recent admission for Covid 19 related pneumonitis, chest x-ray shows no acute findings, and shows chronic interstitial changes #2. Probable urinary tract infection, urine culture was negative #3. Recent episode of pseudomonas aeruginosa pneumonia, discharged to ECF on ci profloxacin #4. Chronic nonhealing ulcers and wounds of the lower extremities and sacrum, wound culture of the right foot was positive for MRSA and Pseudomonas #5. History of atrial fibrillation on Xarelto #6. History of congestive heart failure #7. Chronic obstructive pulmonary disease, previous heavy tobacco use #8. Hypertension #9. History of myocardial infarction in 1987 #10. Osteoarthritis #11. History of bilateral breast masses #12. Hypothyroidism #13. History of colon polyps #14. Chronic hypoxemic respiratory failure related to COPD #15. History of aspiration pneumonia #16. Chronic back pain Plan: Patient is breathing easier, no acute events overnight, his breathing seems to be at his baseline, chest congestion has improved, no altered mentation. Antibiotic coverage has been switched to Zosyn, blood and urine cultures have shown no growth, from pulmonary perspective patient remains stable, today's chest x-ray has been reviewed showing relatively stable findings possibility of increasing localized area of infiltrate in the right upper lobe, however cl inical patient remains stable, no worsening hypoxemia. He can be considered for discharge back to the ECF on antibiotics per ID service recommendations from pulmonary perspective. I performed a history & physical examination of the patient and discussed their management with my nurse practitioner, Ele Brown. I reviewed the nurse practitioner's note and agree with the documented findings and plan of care. Lung sounds are positive for diminished breath sounds.. The findings and the impression was discussed with the patient. I attest to the documentation by the nurse practitioner. Time with Patient: Less than 30
[2020-04-05] MEDS: ACETAMINOPHEN TAB 325 MG TAB PO PRN ×2 (15:43→20:37)
[2020-04-05] MEDS: CHOLECALCIFEROL 1,000 UNIT TAB PO SCH (16:36)
[2020-04-05] MEDS: CYANOCOBALAMIN 500 MCG TAB PO SCH (16:36)
[2020-04-05] MEDS: MULTIVITAMINS, THERA 1 EACH TAB PO SCH (16:37)
[2020-04-05] MEDS: CALCIUM CARBONATE 500 MG CHEWABLE PO SCH (16:37)
[2020-04-05] MEDS: ASCORBIC ACID 500 MG TAB PO SCH (16:37)
[2020-04-05] MEDS: PIPERACILLIN-TAZOBACTAM 3.375 GM in SODIUM CHLORIDE 0.9% 100 ML IVPB SCH ×2 (16:38→23:52)
[2020-04-05 16:48] LABS: Ferritin 214.2 ng/mL (22.0-322.0)
--- NOTE | 2020-04-05 17:17 | P.PN ---
Subjective Progress Note Date: 04/05/20 Patient was recently discharged from the hospital with sepsis secondary to pseudomonas aeruginosa pneumonia and MRSA with pseudomonas aeruginosa of chronic right foot wound, chronic stage II sacral pressure ulcer ,acute on chronic hypoxic respiratory failure secondary to COPD exacerbation, had tested previ ously negative for covid, and discharged to subacute rehab. Patient presented to the ER with positive Covid testing from [facility], T-max 103, currently afebrile. [facility] reported patient also fainted while being transferred from the bathroom -denied fall/injury/trauma. Wearing 4 L nasal cannula to maintain O2 sats in the 90s. Chest x-ray reporting pulmonary fibrotic changes, no change, no acute lung disease. EKG recording atrial fibrillation, right bundle branch block, troponin 0.059, 0.067. INR 1.7, d-dimer 1.18.LDH 661,CK 75,CRP 63, ferritin 156.4. Pro-calcitonin 0.09. Potassium 2.9, BUN 32, creatinine 0.94. Hemoglobin 9, admission, currently 7.6. Anticoagulated on Xarelto. WBC on admission 5.2, currently 3.3. UA occasional bacteria, WBC 38, large leukocytes, negative for nitrates, culture pending. Blood sugars controlled in the low 100s to 110s. Received antibiotics and IV fluids. 04/04/2020 maintained on cefepime as per ID. Reports rough night, chills last night, with diaphoresis. Tired this morning T-max 99.8, normal WBC. Hemoglobin 8.6. Creatinine 1.05. Potassium supplemented yesterday, today normal. Maintain O2 sats in the 90s 3 L nasal cannula . 04/05/2020 cefepime discontinued, now on Zosyn as per ID, T-max 102.9. Urine and blood cultures negative. Chest x-ray reporting increasing right upper lobe infiltrate, chronic interstitial lung disease/pulmonary fibrosis or interstitial pneumonitis. Maintaining O2 sats in the 90s on 3 L nasal cannula. Denies chest pain, palpitations or increasing shortness of breath. Denies lightheadedness or dizziness or focal deficits Objective - Vital Signs Vital signs: Vital Signs Temp 98.2 F 04/05/20 08:23 Pulse 72 04/05/20 08:23 Resp 18 04/05/20 08:23 BP 94/53 04/05/20 08:23 Pulse Ox 93 L 04/05/20 08:23 Intake & Output 04/04/20 04/05/20 04/05/20 18:59 06:59 18:59 Intake Total 470 540 Output Total 900 340 Balance -430 -340 540 Weight 76.5 kg Intake: Oral 470 540 Output: Urine 900 340 Other: Voiding Method Indwelling Catheter Indwelling Catheter Indwelling Catheter # Voids 1 - Exam PHYSICAL EXAM: VITAL SIGNS: As above GENERAL: Sitting up in bed, no acute distress. HEENT: Conjunctivae normal. eyes normal. NECK: No JVD. No thyroid enlargement. CARDIOVASCULAR: S1, S2 regular. No murmur RESPIRATION: Breath sounds diminished in the bases.occasional scattered rhonchi, no crackles. No wheezing ABDOMEN: Soft, nontender . No guarding. no masses palpable. Positive Bowel sounds heard. LEGS: No edema. no swelling PSYCHIATRY: Alert and oriented X3, mood and affect normal. NERVOUS SYSTEM: Cranial N 2-12 grossly normal. Moves all 4 limbs. Diffuse weakness, No focal deficits. Strength and sensation grossly intact.. Skin: Right foot dressing clean dry and intact, sacral pressure ulcer dressing clean dry and intact - Labs CBC & Chem 7: 04/05/20 06:59 04/05/20 06:59 Labs: Abnormal Lab Results - Last 24 Hours (Table) 04/05/20 04/05/20 Range/Units 06:59 06:59 WBC 2.6 L (3.8-10.6) k/uL RBC 3.01 L (4.30-5.90) m/uL Hgb 8.1 L (13.0-17.5) gm/dL Hct 25.7 L (39.0-53.0) % Plt Count 111 L (150-450) k/uL Lymphocytes # 0.9 L (1.0-4.8) k/uL Carbon Dioxide 37 H (22-30) mmol/L BUN 39 H (9-20) mg/dL Calcium 8.0 L (8.4-10.2) mg/dL Total Protein 5.4 L (6.3-8.2) g/dL Albumin 2.5 L (3.5-5.0) g/dL Microbiology - Last 24 Hours (Table) 04/02/20 17:50 Blood Culture - Preliminary Blood No Growth after 48 hours 04/02/20 17:43 Blood Culture - Preliminary Blood No Growth after 48 hours Assessment and Plan Assessment: Acute Covid infection, T-max 103 Syncope reported at [facility] secondary to the above. Possible acute UTI, cultures negative. Recently discharged with Sepsis secondary to pseudomonas aeruginosa pneumonia and MRSA with pseudomonas aeruginosa of chronic right foot wound , chronic stage III sacral pressure ulcer. Reported altered mental status, possible acute metabolic encephalopathy, resolved. Acute hypoxic respiratory failure secondary to the above. Subacute rehab reported desating down to the low 50s to high 80s on 3 L nasal cannula per ER report. Acute on chronic hypoxic respiratory failure secondary to the above, in a patient with severe COPD. Bilateral lung nodules, outpatient PET scan with pulmonary recommended Possible mass at the GE junction, however EGD reported no apparent mass,small paraesophageal hernia, presbyesophagus, mild gastritis. History of Sjuit fundoplication CAD, history of [place], CABG Chronic atrial fibrillation, anticoagulated with Xarelto Chronic CHF, EF currently unknown Hypertension Hypothyroidism Degenerative joint disease Chronic back pain History of nicotine dependence Hypokalemic Plan: Continue on current medication regime ,monitoring and symptomatic treatment. Covid regimen. Antibiotics adjusted and Wound care as per ID. PT/OT. Discussed with social professionals that patient does not want to return to [facility], is interested in [facility]. The impression and plan of care has been dictated as directed. : I performed a history and examination of this patient, discussed the same with the dictator. I agree with the dictator's note ,documented as a scribe. Any additional findings or plans will be noted.
[2020-04-05] MEDS: ATORVASTATIN 40 MG TAB PO SCH (20:37)
--- NOTE | 2020-04-05 23:14 | PN ---
PROGRESS NOTE DATE OF SERVICE: 04/05/2020 REASON FOR FOLLOWUP: Fever, concerning likely for aspiration pneumonia. INTERVAL HISTORY: The patient did spike a fever last evening of 102.9 with a fever of 100.8 this afternoon. The patient seems to be slightly more awake and alert. He is breathing comfortably, though. Denies having any chest pain. He does have some cough, but no sputum. No abdominal pain or diarrhea. PHYSICAL EXAMINATION: Blood pressure 93/48 with a pulse of 77, temperature 100.2. He is 91% on 3 L nasal cannula. General description is an elderly male lying in bed in no distress. RESPIRATORY SYSTEM: Unlabored breathing with decreased intensity of breath sounds. No wheeze. HEART: S1, S2. Regular rate and rhythm. ABDOMEN: Soft. No tenderness. LAB: Hemoglobin 8.1, white count 2.6, BUN of 39, creatinine 1.08. The patient did have elevated procalcitonin and CRP. DIAGNOSTIC IMPRESSION AND PLAN: Patient with a fever, now with x-ray showing increased infiltrate in the right upper lobe with concern for possible aspiration pneumonia. Antibiotic will be adjusted to Zosyn. Try to obtain a sputum sample and monitor his clinical course closely. MMODL / IJN: [id number] /
[2020-04-06] MEDS: PANTOPRAZOLE 40 MG TABLET PO SCH (06:43)
[2020-04-06 08:17] LABS: HGB 8.5 gm/dL (13.0-17.5); Hypochromasia Moderate; MCHC 30.5 g/dL (31.0-37.0); MCV 85.1 fL (80.0-100.0); Platelet Count 108 k/uL (150-450); RBC 3.29 m/uL (4.30-5.90); RDW 15.6 % (11.5-15.5); WBC 3.3 k/uL (3.8-10.6)
[2020-04-06 08:55] LABS: Calcium 7.9 mg/dL (8.4-10.2); Potassium 4.1 mmol/L (3.5-5.1)
[2020-04-06] MEDS: ALBUTEROL HFA INHALER INHALATION SCH ×4 (09:32→20:37)
[2020-04-06] MEDS: SYMBICORT 80-4.5 MCG INHALER INHALATION SCH ×2 (09:32→20:38)
--- NOTE | 2020-04-06 10:16 | P.PN ---
Subjective Progress Note Date: 04/06/20 Patient was recently discharged from the hospital with sepsis secondary to pseudomonas aeruginosa pneumonia and MRSA with pseudomonas aeruginosa of chronic right foot wound, chronic stage II sacral pressure ulcer ,acute on chronic hypoxic respiratory failure secondary to COPD exacerbation, had tested previ ously negative for covid, and discharged to subacute rehab. Patient presented to the ER with positive Covid testing from [facility], T-max 103, currently afebrile. [facility] reported patient also fainted while being transferred from the bathroom -denied fall/injury/trauma. Wearing 4 L nasal cannula to maintain O2 sats in the 90s. Chest x-ray reporting pulmonary fibrotic changes, no change, no acute lung disease. EKG recording atrial fibrillation, right bundle branch block, troponin 0.059, 0.067. INR 1.7, d-dimer 1.18.LDH 661,CK 75,CRP 63, ferritin 156.4. Pro-calcitonin 0.09. Potassium 2.9, BUN 32, creatinine 0.94. Hemoglobin 9, admission, currently 7.6. Anticoagulated on Xarelto. WBC on admission 5.2, currently 3.3. UA occasional bacteria, WBC 38, large leukocytes, negative for nitrates, culture pending. Blood sugars controlled in the low 100s to 110s. Received antibiotics and IV fluids. 04/04/2020 maintained on cefepime as per ID. Reports rough night, chills last night, with diaphoresis. Tired this morning T-max 99.8, normal WBC. Hemoglobin 8.6. Creatinine 1.05. Potassium supplemented yesterday, today normal. Maintain O2 sats in the 90s 3 L nasal cannula . 04/05/2020 cefepime discontinued, now on Zosyn as per ID, T-max 102.9. Urine and blood cultures negative. Chest x-ray reporting increasing right upper lobe infiltrate, chronic interstitial lung disease/pulmonary fibrosis or interstitial pneumonitis. Maintaining O2 sats in the 90s on 3 L nasal cannula. Denies chest pain, palpitations or increasing shortness of breath. Denies lightheadedness or dizziness or focal deficits. 04/06/2020 antibiotic adjusted to Zosyn yesterday. Fevers persist with T-max of 102.5. Yesterday's chest x-ray reported worsening right upper lobe. Loose congested nonproductive cough.Labs pending. Continues on Covid regimen. Maintaining O2 sats in the low 90s on 3 L nasal cannula .Denies chest pain, palpitations or increased shortness of breath. Objective - Vital Signs Vital signs: Vital Signs Temp 99.0 F 04/06/20 04:00 Pulse 64 04/06/20 04:00 Resp 20 04/06/20 04:00 BP 114/50 04/06/20 04:00 Pulse Ox 93 L 04/06/20 04:00 Intake & Output 04/05/20 04/06/20 04/06/20 18:59 06:59 18:59 Intake Total 1020 580 Output Total 200 900 Balance 820 -320 Weight 78 kg Intake: Intake, IV Titration 100 Amount Piperacillin-Tazobactam 3 100 .375 gm In Sodium Chloride 0.9% 100 ml @ 25 mls/hr IVPB Q8HR [facility] Rx# :[id number] Oral 1020 480 Output: Urine 200 900 Other: Voiding Method Indwelling Catheter Indwelling Catheter - Exam PHYSICAL EXAM: VITAL SIGNS: As above GENERAL: Alert and oriented 3, Sitting up in bed, no acute distress,tired appearing HEENT: Conjunctivae normal. eyes normal. NECK: No JVD. No thyroid enlargement. CARDIOVASCULAR: S1, S2 regular. No murmur RESPIRATION: Breath sounds diminished in the bases.occasional scattered rhonchi, no crackles. No wheezing ABDOMEN: Soft, nontender . No guarding. no masses palpable. Positive Bowel sounds heard. LEGS: No edema. no swelling NERVOUS SYSTEM: Cranial N 2-12 grossly normal. Moves all 4 limbs. Diffuse weakness, No focal deficits. Strength and sensation grossly intact.. Skin: Right foot dressing clean dry and intact, sacral pressure ulcer dressing clean dry and intact - Labs CBC & Chem 7: 04/06/20 08:01 04/06/20 08:01 Labs: Abnormal Lab Results - Last 24 Hours (Table) 04/05/20 04/05/20 04/06/20 Range/Units 06:59 06:59 08:01 WBC 3.3 L (3.8-10.6) k/uL RBC 3.29 L (4.30-5.90) m/uL Hgb 8.5 L (13.0-17.5) gm/dL Hct 28.0 L (39.0-53.0) % MCHC 30.5 L (31.0-37.0) g/dL RDW 15.6 H (11.5-15.5) % Plt Count 108 L (150-450) k/uL Carbon Dioxide (22-30) mmol/L BUN (9-20) mg/dL Calcium (8.4-10.2) mg/dL Magnesium (1.6-2.3) mg/dL C-Reactive Protein 130.1 H (<10.0) mg/L Procalcitonin 0.15 H (0.02-0.09) ng/mL 04/06/20 04/06/20 Range/Units 08:01 08:01 WBC (3.8-10.6) k/uL RBC (4.30-5.90) m/uL Hgb (13.0-17.5) gm/dL Hct (39.0-53.0) % MCHC (31.0-37.0) g/dL RDW (11.5-15.5) % Plt Count (150-450) k/uL Carbon Dioxide 34 H (22-30) mmol/L BUN 35 H (9-20) mg/dL Calcium 7.9 L (8.4-10.2) mg/dL Magnesium 1.5 L (1.6-2.3) mg/dL C-Reactive Protein (<10.0) mg/L Procalcitonin (0.02-0.09) ng/mL Microbiology - Last 24 Hours (Table) 04/02/20 17:50 Blood Culture - Preliminary Blood No Growth after 72 hours 04/02/20 17:43 Blood Culture - Preliminary Blood No Growth after 72 hours Assessment and Plan Assessment: Acute Covid infection, T-max 103. Possible aspiration pneumonia, chest x-ray reporting worsening right upper lobe. Syncope reported at [facility] secondary to the above. Possible acute UTI, cultures negative. Recently discharged with Sepsis secondary to pseudomonas aeruginosa pneumonia and MRSA with pseudomonas aeruginosa of chronic right foot wound , chronic stage III sacral pressure ulcer. Reported altered mental status, possible acute metabolic encephalopathy, resolved. Acute hypoxic respiratory failure secondary to the above. Subacute rehab reported desating down to the low 50s to high 80s on 3 L nasal cannula per ER report. Acute on chronic hypoxic respiratory failure secondary to the above, in a patient with severe COPD. Bilateral lung nodules, outpatient PET scan with pulmonary recommended Possible mass at the GE junction, however EGD reported no apparent mass,small paraesophageal hernia, presbyesophagus, mild gastritis. History of Sujit fundoplication CAD, history of [place], CABG Chronic atrial fibrillation, anticoagulated with Xarelto Chronic CHF, EF currently unknown Hypertension Hypothyroidism Degenerative joint disease Chronic back pain History of nicotine dependence Hypokalemic Plan: Continue on current medication regime ,monitoring and symptomatic treatment. Persistent fevers, worsening chest x-ray of yesterday, O2 requirements unchanged, more congested cough-sputum culture ordered-currently nonproductive; covid regimen/ Antibiotics/Wound care as per ID. PT/OT. Prognosis guarded given multiple complex medical issues. The impression and plan of care has been dictated as directed. : I performed a history and examination of this patient, discussed the same with the dictator. I agree with the dictator's note ,documented as a scribe. Any additional findings or plans will be noted.
[2020-04-06] MEDS: PIPERACILLIN-TAZOBACTAM 3.375 GM in SODIUM CHLORIDE 0.9% 100 ML IVPB SCH ×2 (10:30→16:34)
[2020-04-06] MEDS: FAMOTIDINE 20 MG TAB PO SCH ×2 (10:31→21:53)
[2020-04-06] MEDS: COLLAGENASE 250 UNIT/GM OINTMENT 30 GM TUBE TOPICAL SCH (10:31)
[2020-04-06] MEDS: GABAPENTIN 300 MG CAP PO SCH ×2 (10:31→16:34)
[2020-04-06] MEDS: RIVAROXABAN 20 MG TAB PO SCH (10:31)
[2020-04-06] MEDS: METOPROLOL TARTRATE 12.5 MG TAB PO SCH (10:31)
[2020-04-06] MEDS: ZINC SULFATE 220 MG CAP PO SCH (10:31)
[2020-04-06] MEDS: FUROSEMIDE 40 MG TAB PO SCH (10:31)
[2020-04-06] MEDS: ACETAMINOPHEN TAB 325 MG TAB PO PRN (10:52)
[2020-04-06] MEDS: oxyCODONE-APAP 10-325MG 1 EACH TAB PO PRN ×2 (11:17→18:12)
[2020-04-06] MEDS: MAGNESIUM SULFATE-D5W PMX 1 GM in DEXTROSE/WATER 1 100ML.BAG IVPB SCH ×2 (11:51→13:04)
[2020-04-06] MEDS: TIOTROPIUM 2.5 MCG INHALER INHALATION SCH (12:26)
[2020-04-06] MEDS: IBUPROFEN 400 MG TAB PO PRN (13:04)
[2020-04-06] MEDS: DEXAMETHASONE SOD PHOSPHATE 10 MG/ML 1 ML VIAL IV SCH (13:05)
[2020-04-06 14:01] LABS: C Reactive Protein 124.2 mg/L (<10.0)
--- NOTE | 2020-04-06 15:46 | P.PN ---
Subjective Progress Note Date: 04/06/20 Principal diagnosis: Acute on chronic hypoxic respiratory failure, CoVID 19 pneumonia This is a 80-year-old white male patient with multiple chronic medical conditions, and a recent hospitalization for COVID19 pneumonia, and sepsis related to pseudomonal pneumonia, in addition to sepsis related to his chronic nonhealing ulcers and wounds of the lower extremities, and sacrum. Patient was treated with IV antibiotics while he was in the hospital, he was discharged to [facility] where he completed his antibiotics with oral ciprofloxacin. His culture data from his previous admission showed a sputum culture positive for pseudomonas aeruginosa on 03/20/2020 and a right foot wound culture positive for MRSA and pseudomonas aeruginosa. Patient was brought back to the emergency department on 03/25/2020 for evaluation of weakness, patient had a fainting episode while he was being transferred from the bathroom, patient was also febrile on presentation, his chest x-ray showed fibrotic changes, no acute lung disease, no change compared to his most recent chest x-ray from 03/21/2020. Clinically patient denies any chest pain, denies any worsening in terms of his chronic shortness of breath, he does have congestive cough, nonproductive and not much sputum. Yesterday we reconsult infectious disease service and patient was placed back on cefepime by Dr. Fontenot. His COVID 19 PCR was again positive, urine and blood cultures so far have shown no growth. On today's exam patient i s a comfortable, in no acute respiratory distress, his labs have been reviewed, showing white blood cell count of 4.9, hemoglobin is 8.6, his electrolytes are unremarkable for the most part except for CO2 which is at 39, BUN is 36, creatinine 1.05 On 04/05/2020 patient seen in follow-up on selective care unit, he is resting comfortably in bed, breathing comfortably, no significant cough, no compressive chest pain, no hemoptysis, vital signs have been stable, follow-up chest x-ray today shows COPD with increasing localized area of infiltrate in the right upper lobe, chronic interstitial lung disease, pulmonary fibrosis or interstitial pneumonitis. Clinically patient has been stable, no altered mentation, no fever today, his last episode of fever was yesterday with a temp of 102.9F. Urine and blood cultures have been negative. Is currently on Zosyn per ID service recommendations. At that recent wound cultures positive for MRSA and Pseudomonas, and sputum cultures positive for pseudomonas. Clinically patient is improving. The patient is seen today 04/05/2020 and follow-up on the selective care unit. He is currently awake and alert in no acute distress. Resting fairly comfort ably in bed. Maintaining O2 saturations in the 90s on 4 L/m per nasal cannula. Continues to spike temperatures. Currently 103.1. Tachycardic. Blood cultures reveal no growth. Urine culture reveals no growth. White count 3.3. Hemoglobin 8.5. Platelet count 108. D-dimer 0.70. Sodium 141. Potassium 4.1. Creatinine 0.99. C-reactive protein 124. He is continued on Symbicort, albuterol, antibiotics in the form of Zosyn. Anticoagulated with Xarelto. Continued on dexamethasone, Pepcid, vitamin supplements. Objective - Vital Signs Vital signs: Vital Signs Temp 103.1 F H 04/06/20 12:00 Pulse 97 04/06/20 12:00 Resp 20 04/06/20 12:00 BP 96/46 04/06/20 12:00 Pulse Ox 94 L 04/06/20 12:00 Intake & Output 04/05/20 04/06/20 04/06/20 18:59 06:59 18:59 Intake Total 1020 580 420 Output Total 200 900 825 Balance 820 -320 -405 Weight 78 kg Intake: Intake, IV Titration 100 Amount Piperacillin-Tazobactam 3 100 .375 gm In Sodium Chloride 0.9% 100 ml @ 25 mls/hr IVPB Q8HR [facility] Rx# :[id number] Oral 1020 480 420 Output: Urine 200 900 825 Other: Voiding Method Indwelling Catheter Indwelling Catheter Indwelling Catheter - Exam GENERAL EXAM: Alert, very pleasant, 80-year-old male patient, on 4 L of oxygen and the pulse ox of 94% comfortable in no apparent distress. HEAD: Normocephalic/atraumatic. EYES: Normal reaction of pupils, equal size. Conjunctiva pink, sclera white. NOSE: Clear with pink turbinates. THROAT: No erythema or exudates. NECK: No masses, no JVD, no thyroid enlargement, no adenopathy. CHEST: No chest wall deformity. Symmetrical expansion. LUNGS: Equal air entry with basilar crackles, few scattered rhonchi CVS: Regular rate and rhythm, normal S1 and S2, no gallops, no murmurs, no rubs ABDOMEN: Soft, nontender. No hepatosplenomegaly, normal bowel sounds, no guarding or rigidity. EXTREMITIES: No clubbing, no edema, no cyanosis, 2+ pulses and upper and lower extremities. MUSCULOSKELETAL: Muscle strength and tone normal. SPINE: No scoliosis or deformity SKIN: No rashes, bilateral lower extremity is covered with dressings, patient has a sacral dressing CENTRAL NERVOUS SYSTEM: No focal deficits, tone is normal in all 4 extremities. PSYCHIATRIC: Alert and oriented -3. Appropriate affect. Intact judgment and insight. - Labs CBC & Chem 7: 04/06/20 08:01 04/06/20 08:01 Labs: Abnormal Lab Results - Last 24 Hours (Table) 04/06/20 04/06/20 04/06/20 Range/Units 08:01 08:01 08:01 WBC 3.3 L (3.8-10.6) k/uL RBC 3.29 L (4.30-5.90) m/uL Hgb 8.5 L (13.0-17.5) gm/dL Hct 28.0 L (39.0-53.0) % MCHC 30.5 L (31.0-37.0) g/dL RDW 15.6 H (11.5-15.5) % Plt Count 108 L (150-450) k/uL D-Dimer (<0.60) mg/L FEU Carbon Dioxide 34 H (22-30) mmol/L BUN 35 H (9-20) mg/dL Calcium 7.9 L (8.4-10.2) mg/dL Magnesium 1.5 L (1.6-2.3) mg/dL C-Reactive Protein (<10.0) mg/L 04/06/20 04/06/20 Range/Units 12:54 12:54 WBC (3.8-10.6) k/uL RBC (4.30-5.90) m/uL Hgb (13.0-17.5) gm/dL Hct (39.0-53.0) % MCHC (31.0-37.0) g/dL RDW (11.5-15.5) % Plt Count (150-450) k/uL D-Dimer 0.70 H (<0.60) mg/L FEU Carbon Dioxide (22-30) mmol/L BUN (9-20) mg/dL Calcium (8.4-10.2) mg/dL Magnesium (1.6-2.3) mg/dL C-Reactive Protein 124.2 H (<10.0) mg/L Microbiology - Last 24 Hours (Table) 04/02/20 17:50 Blood Culture - Preliminary Blood No Growth after 72 hours 04/02/20 17:43 Blood Culture - Preliminary Blood No Growth after 72 hours Assessment and Plan Assessment: 1. Covid 19 infection without obvious worsening of the patient's chronic respiratory status, patient had a recent admission for Covid 19 related pneumonitis, chest x-ray shows some increase in localized infiltrate in the right upper lobe, and shows chronic interstitial changes 2. Febrile illness secondary to above 3. Recent episode of pseudomonas aeruginosa pneumonia, discharged to ECF on ciprofloxacin 4. Chronic nonhealing ulcers and wounds of the lower extremities and sacrum, wound culture of the right foot was positive for MRSA and Pseudomonas 5. History of atrial fibrillation on Xarelto 6. History of congestive heart failure 7. Chronic obstructive pulmonary disease, previous heavy tobacco use 8. Hypertension 9. History of myocardial infarction in 1987 10. Osteoarthritis 11. History of bilateral breast masses 12. Hypothyroidism 13. History of colon polyps 14. Chronic hypoxemic respiratory failure related to COPD 15. History of aspiration pneumonia 16. Chronic back pain Plan: The patient was seen and evaluated by Dr. Herrera Continue the current treatment plan Continue to monitor fever pattern Possible transfer to ECF tomorrow We will continue to follow I, the cosigning physician, performed a history & physical examination of the patient. Lungs sounds basilar crackles, few scattered rhonchi. Maintaining good O2 saturations in the 90s on 4 L/m per nasal cannula. I discussed the assessment and plan of care with my nurse practitioner, Petra Rivera. I attest to the above note as dictated by her.
[2020-04-06] MEDS: CALCIUM CARBONATE 500 MG CHEWABLE PO SCH (16:35)
[2020-04-06] MEDS: CHOLECALCIFEROL 1,000 UNIT TAB PO SCH (16:35)
[2020-04-06] MEDS: ASCORBIC ACID 500 MG TAB PO SCH (16:35)
[2020-04-06] MEDS: MULTIVITAMINS, THERA 1 EACH TAB PO SCH (16:35)
[2020-04-06] MEDS: CYANOCOBALAMIN 500 MCG TAB PO SCH (16:35)
--- NOTE | 2020-04-06 19:59 | PN ---
PROGRESS NOTE DATE OF SERVICE: 04/06/2020 REASON FOR FOLLOWUP: Fever, pneumonia and COVID-19 infection. INTERVAL HISTORY: The patient has been spiking fever again with a T-max of 103.1 degrees Fahrenheit. The patient is slightly lethargic, though denies having any chest pain. Minimal cough. No abdominal pain or any diarrhea. PHYSICAL EXAMINATION: Blood pressure 96/46, pulse of 97, temperature 103.1. He is 94% on 4 L nasal cannula. General description is an elderly male lying in bed in no distress. RESPIRATORY SYSTEM: Unlabored breathing with decreased breath sounds at the base. No wheeze. HEART: S1, S2. Regular rate and rhythm. ABDOMEN: Soft. No tenderness. EXTREMITIES: No edema of the feet. LABS: Hemoglobin is 8.5, white count 3.3. Creatinine 0.99. D-dimer is mildly elevated at 0.70. DIAGNOSTIC IMPRESSION AND PLAN: Patient with fever which is multifactorial in this patient, more likely secondary to COVID-19 pneumonia that was diagnosed on April 02, as per discussion with the retirement where the patient was. He is covered for bacterial pneumonia, also spiking a fever. With onset of symptoms only 4 days, will add remdesivir to his treatment protocol and see clinical response to it. Continue with supportive care. MMODL / IJN: [id number] /
[2020-04-06] MEDS ORDERED: REMDESIVIR 200 MG in SODIUM CHLORIDE 0.9% 250 ML IVPB ONE (20:00)
[2020-04-06 21:02] LABS: Ferritin 445.1 ng/mL (22.0-322.0)
[2020-04-06] MEDS: ATORVASTATIN 40 MG TAB PO SCH (21:53)
[2020-04-07] MEDS: PIPERACILLIN-TAZOBACTAM 3.375 GM in SODIUM CHLORIDE 0.9% 100 ML IVPB SCH ×3 (00:33→18:14)
[2020-04-07] MEDS: METOPROLOL TARTRATE 12.5 MG TAB PO SCH ×3 (00:33→18:15)
[2020-04-07] MEDS: PANTOPRAZOLE 40 MG TABLET PO SCH (06:47)
[2020-04-07] MEDS: ALBUTEROL HFA INHALER INHALATION SCH ×4 (08:05→20:07)
[2020-04-07] MEDS: SYMBICORT 80-4.5 MCG INHALER INHALATION SCH ×2 (08:05→20:07)
[2020-04-07] MEDS: TIOTROPIUM 2.5 MCG INHALER INHALATION SCH (08:05)
[2020-04-07] MEDS: FUROSEMIDE 40 MG TAB PO SCH (08:51)
[2020-04-07] MEDS: GABAPENTIN 300 MG CAP PO SCH ×2 (08:51→18:15)
[2020-04-07] MEDS: oxyCODONE-APAP 10-325MG 1 EACH TAB PO PRN (08:51)
[2020-04-07] MEDS: RIVAROXABAN 20 MG TAB PO SCH (08:51)
[2020-04-07] MEDS: ZINC SULFATE 220 MG CAP PO SCH (08:51)
[2020-04-07] MEDS: FAMOTIDINE 20 MG TAB PO SCH ×2 (08:51→22:06)
[2020-04-07] MEDS: DEXAMETHASONE SOD PHOSPHATE 10 MG/ML 1 ML VIAL IV SCH (08:54)
--- NOTE | 2020-04-07 10:54 | P.PN ---
Subjective Progress Note Date: 04/07/20 Patient was recently discharged from the hospital with sepsis secondary to pseudomonas aeruginosa pneumonia and MRSA with pseudomonas aeruginosa of chronic right foot wound, chronic stage II sacral pressure ulcer ,acute on chronic hypoxic respiratory failure secondary to COPD exacerbation, had tested previ ously negative for covid, and discharged to subacute rehab. Patient presented to the ER with positive Covid testing from [facility], T-max 103, currently afebrile. [facility] reported patient also fainted while being transferred from the bathroom -denied fall/injury/trauma. Wearing 4 L nasal cannula to maintain O2 sats in the 90s. Chest x-ray reporting pulmonary fibrotic changes, no change, no acute lung disease. EKG recording atrial fibrillation, right bundle branch block, troponin 0.059, 0.067. INR 1.7, d-dimer 1.18.LDH 661,CK 75,CRP 63, ferritin 156.4. Pro-calcitonin 0.09. Potassium 2.9, BUN 32, creatinine 0.94. Hemoglobin 9, admission, currently 7.6. Anticoagulated on Xarelto. WBC on admission 5.2, currently 3.3. UA occasional bacteria, WBC 38, large leukocytes, negative for nitrates, culture pending. Blood sugars controlled in the low 100s to 110s. Received antibiotics and IV fluids. 04/04/2020 maintained on cefepime as per ID. Reports rough night, chills last night, with diaphoresis. Tired this morning T-max 99.8, normal WBC. Hemoglobin 8.6. Creatinine 1.05. Potassium supplemented yesterday, today normal. Maintain O2 sats in the 90s 3 L nasal cannula . 04/05/2020 cefepime discontinued, now on Zosyn as per ID, T-max 102.9. Urine and blood cultures negative. Chest x-ray reporting increasing right upper lobe infiltrate, chronic interstitial lung disease/pulmonary fibrosis or interstitial pneumonitis. Maintaining O2 sats in the 90s on 3 L nasal cannula. Denies chest pain, palpitations or increasing shortness of breath. Denies lightheadedness or dizziness or focal deficits. 04/06/2020 antibiotic adjusted to Zosyn yesterday. Fevers persist with T-max of 102.5. Yesterday's chest x-ray reported worsening right upper lobe. Loose congested nonproductive cough.Labs pending. Continues on Covid regimen. Maintaining O2 sats in the low 90s on 3 L nasal cannula .Denies chest pain, palpitations or increased shortness of breath. 04/07/2020 Despite bacterial pneumonia coverage, continues to be febrile, Remedesivir initiated. Last lethargic today.T-max 103.1. Labs pending. Minimal cough. Oxygen weaned down to 3 L nasal cannula, maintaining O2 sats in the high 90s. Denies chest pain, palpitations or increasing shortness of breath. Objective - Vital Signs Vital signs: Vital Signs Temp 98.5 F 04/06/20 23:36 Pulse 59 L 04/07/20 04:00 Resp 18 04/07/20 04:00 BP 121/60 04/07/20 04:00 Pulse Ox 99 04/07/20 04:00 Intake & Output 04/06/20 04/07/20 04/07/20 18:59 06:59 18:59 Intake Total 660 350 540 Output Total 825 900 Balance -165 -550 540 Weight 77.2 kg Intake: Intake, IV Titration 350 Amount Piperacillin-Tazobactam 3 100 .375 gm In Sodium Chloride 0.9% 100 ml @ 25 mls/hr IVPB Q8HR [facility] Rx# :[id number] Remdesivir 200 mg In 250 Sodium Chloride 0.9% 250 ml @ 250 mls/hr IVPB ONCE ONE Rx#:[id number] Oral 660 540 Output: Urine 825 900 Other: Voiding Method Indwelling Catheter Indwelling Catheter - Exam PHYSICAL EXAM: VITAL SIGNS: As above GENERAL: Alert and oriented 3, Sitting up in bed, no acute distress, HEENT: Conjunctivae normal. eyes normal. NECK: No JVD. No thyroid enlargement. CARDIOVASCULAR: S1, S2 regular. No murmur RESPIRATION: Unlabored, Breath sounds diminished in the bases.occasional scattered rhonchi, no crackles, no wheezing ABDOMEN: Soft, nontender . No guarding. no masses palpable. Positive Bowel sounds heard. LEGS: No edema. no swelling NERVOUS SYSTEM: Cranial N 2-12 grossly normal. Moves all 4 limbs. Diffuse weakness, No focal deficits. Strength and sensation grossly intact.. Skin: Right foot dressing clean dry and intact, sacral pressure ulcer dressing clean dry and intact - Labs CBC & Chem 7: 04/06/20 08:01 04/06/20 08:01 Labs: Abnormal Lab Results - Last 24 Hours (Table) 04/06/20 04/06/20 04/06/20 Range/Units 12:54 12:54 12:54 D-Dimer 0.70 H (<0.60) mg/L FEU Ferritin 445.1 H (22.0-322.0) ng/mL C-Reactive Protein 124.2 H (<10.0) mg/L Procalcitonin 0.13 H (0.02-0.09) ng/mL Microbiology - Last 24 Hours (Table) 04/02/20 17:50 Blood Culture - Preliminary Blood No Growth after 96 hours 04/02/20 17:43 Blood Culture - Preliminary Blood No Growth after 96 hours Assessment and Plan Assessment: Acute Covid pneumonia, T-max 103. Possible aspiration pneumonia, chest x-ray reporting worsening right upper lobe. Syncope reported at [facility] secondary to the above. Fevers secondary to the Covid pneumonia, persists despite bacterial pneumonia coverage, Remedesivir initiated Possible acute UTI, cultures negative. Recently discharged with Sepsis secondary to pseudomonas aeruginosa pneumonia and MRSA with pseudomonas aeruginosa of chronic right foot wound , chronic stage III sacral pressure ulcer. Reported altered mental status, possible acute metabolic encephalopathy, resolved. Acute hypoxic respiratory failure secondary to the above. Subacute rehab reported desating down to the low 50s to high 80s on 3 L nasal cannula per ER report. Acute on chronic hypoxic respiratory failure secondary to the above, in a patient with severe COPD. Bilateral lung nodules, outpatient PET scan with pulmonary recommended Possible mass at the GE junction, however EGD reported no apparent mass,small paraesophageal hernia, presbyesophagus, mild gastritis. History of Sujit fundoplication CAD, history of [place], CABG Chronic atrial fibrillation, anticoagulated with Xarelto Chronic CHF, EF currently unknown Hypertension Hypothyroidism Degenerative joint disease Chronic back pain History of nicotine dependence Hypokalemic Plan: Continue on current medication regime ,monitoring and symptomatic treatment. Persistent fevers, Remedesivir initiated. PT/OT. Prognosis guarded given multiple complex medical issues. The impression and plan of care has been dictated as directed. : I performed a history and examination of this patient, discussed the same with the dictator. I agree with the dictator's note ,documented as a scribe. Any additional findings or plans will be noted.
[2020-04-07 11:16] LABS: HCT 27.7 % (39.0-53.0); HGB 8.2 gm/dL (13.0-17.5); Hypochromasia Marked; MCH 26.1 pg (25.0-35.0); MCHC 29.6 g/dL (31.0-37.0); MCV 88.2 fL (80.0-100.0); Mean Platelet Volume 8.2; Platelet Count 113 k/uL (150-450); RBC 3.15 m/uL (4.30-5.90); RDW 15.6 % (11.5-15.5); WBC 2.6 k/uL (3.8-10.6)
[2020-04-07 11:45] LABS: Calcium 7.5 mg/dL (8.4-10.2); Potassium 3.7 mmol/L (3.5-5.1)
--- NOTE | 2020-04-07 15:34 | P.PN ---
Subjective Progress Note Date: 04/07/20 Principal diagnosis: Acute on chronic hypoxic respiratory failure, CoVID 19 pneumonia This is a 80-year-old white male patient with multiple chronic medical conditions, and a recent hospitalization for COVID19 pneumonia, and sepsis related to pseudomonal pneumonia, in addition to sepsis related to his chronic nonhealing ulcers and wounds of the lower extremities, and sacrum. Patient was treated with IV antibiotics while he was in the hospital, he was discharged to [facility] where he completed his antibiotics with oral ciprofloxacin. His culture data from his previous admission showed a sputum culture positive for pseudomonas aeruginosa on 03/20/2020 and a right foot wound culture positive for MRSA and pseudomonas aeruginosa. Patient was brought back to the emergency department on 03/25/2020 for evaluation of weakness, patient had a fainting episode while he was being transferred from the bathroom, patient was also febrile on presentation, his chest x-ray showed fibrotic changes, no acute lung disease, no change compared to his most recent chest x-ray from 03/21/2020. Clinically patient denies any chest pain, denies any worsening in terms of his chronic shortness of breath, he does have congestive cough, nonproductive and not much sputum. Yesterday we reconsult infectious disease service and patient was placed back on cefepime by Dr. Fontenot. His COVID 19 PCR was again positive, urine and blood cultures so far have shown no growth. On today's exam patient i s a comfortable, in no acute respiratory distress, his labs have been reviewed, showing white blood cell count of 4.9, hemoglobin is 8.6, his electrolytes are unremarkable for the most part except for CO2 which is at 39, BUN is 36, creatinine 1.05 On 04/05/2020 patient seen in follow-up on selective care unit, he is resting comfortably in bed, breathing comfortably, no significant cough, no compressive chest pain, no hemoptysis, vital signs have been stable, follow-up chest x-ray today shows COPD with increasing localized area of infiltrate in the right upper lobe, chronic interstitial lung disease, pulmonary fibrosis or interstitial pneumonitis. Clinically patient has been stable, no altered mentation, no fever today, his last episode of fever was yesterday with a temp of 102.9F. Urine and blood cultures have been negative. Is currently on Zosyn per ID service recommendations. At that recent wound cultures positive for MRSA and Pseudomonas, and sputum cultures positive for pseudomonas. Clinically patient is improving. The patient is seen today 04/06/2020 and follow-up on the selective care unit. He is currently awake and alert in no acute distress. Resting fairly comfort ably in bed. Maintaining O2 saturations in the 90s on 4 L/m per nasal cannula. Continues to spike temperatures. Currently 103.1. Tachycardic. Blood cultures reveal no growth. Urine culture reveals no growth. White count 3.3. Hemoglobin 8.5. Platelet count 108. D-dimer 0.70. Sodium 141. Potassium 4.1. Creatinine 0.99. C-reactive protein 124. He is continued on Symbicort, albuterol, antibiotics in the form of Zosyn. Anticoagulated with Xarelto. Continued on dexamethasone, Pepcid, vitamin supplements. The patient is seen today 04/07/2020 follow-up on the selective care unit. He is currently resting quite comfortably in bed. Awake and alert in no acute distress. He denies any worsening shortness of breath, cough or congestion. Maintaining O2 saturation in the mid 90s on 3 L/m per nasal cannula. He is afebrile today. Hemodynamically stable. White count 2.6. Hemoglobin 8.2. Sodium 141. Potassium 3.7. Creatinine 0.95. He is continued on Symbicort, albuterol, antibiotics in the form of Zosyn. Anticoagulated with Xarelto. Continued on dexamethasone, Pepcid, vitamin supplements. Objective - Vital Signs Vital signs: Vital Signs Temp 98.2 F 04/07/20 12:00 Pulse 74 04/07/20 12:00 Resp 18 04/07/20 12:00 BP 100/47 04/07/20 12:00 Pulse Ox 96 04/07/20 12:00 Intake & Output 04/06/20 04/07/20 04/07/20 18:59 06:59 18:59 Intake Total 503 312 4310 Output Total 825 900 Balance -165 -550 1100 Weight 77.2 kg 77.2 kg Intake: Intake, IV Titration 350 Amount Piperacillin-Tazobactam 3 100 .375 gm In Sodium Chloride 0.9% 100 ml @ 25 mls/hr IVPB Q8HR [facility] Rx# :[id number] Remdesivir 200 mg In 250 Sodium Chloride 0.9% 250 ml @ 250 mls/hr IVPB ONCE ONE Rx#:[id number] Oral 660 1100 Output: Urine 825 900 Other: Voiding Method Indwelling Catheter Indwelling Catheter Indwelling Catheter - Exam GENERAL EXAM: Alert, very pleasant, 80-year-old male patient, on 3 L of oxygen and the pulse ox of 96% comfortable in no apparent distress. HEAD: Normocephalic/atraumatic. EYES: Normal reaction of pupils, equal size. Conjunctiva pink, sclera white. NOSE: Clear with pink turbinates. THROAT: No erythema or exudates. NECK: No masses, no JVD, no thyroid enlargement, no adenopathy. CHEST: No chest wall deformity. Symmetrical expansion. LUNGS: Equal air entry with basilar crackles, few scattered rhonchi CVS: Regular rate and rhythm, normal S1 and S2, no gallops, no murmurs, no rubs ABDOMEN: Soft, nontender. No hepatosplenomegaly, normal bowel sounds, no guarding or rigidity. EXTREMITIES: No clubbing, no edema, no cyanosis, 2+ pulses and upper and lower extremities. MUSCULOSKELETAL: Muscle strength and tone normal. SPINE: No scoliosis or deformity SKIN: No rashes, bilateral lower extremity is covered with dressings, patient has a sacral dressing CENTRAL NERVOUS SYSTEM: No focal deficits, tone is normal in all 4 extremities. PSYCHIATRIC: Alert and oriented -3. Appropriate affect. Intact judgment and insight. - Labs CBC & Chem 7: 04/07/20 10:55 04/07/20 10:55 Labs: Abnormal Lab Results - Last 24 Hours (Table) 04/06/20 04/06/20 04/07/20 Range/Units 12:54 12:54 10:55 WBC 2.6 L (3.8-10.6) k/uL RBC 3.15 L (4.30-5.90) m/uL Hgb 8.2 L (13.0-17.5) gm/dL Hct 27.7 L (39.0-53.0) % MCHC 29.6 L (31.0-37.0) g/dL RDW 15.6 H (11.5-15.5) % Plt Count 113 L (150-450) k/uL BUN (9-20) mg/dL Glucose (74-99) mg/dL Calcium (8.4-10.2) mg/dL Ferritin 445.1 H (22.0-322.0) ng/mL Procalcitonin 0.13 H (0.02-0.09) ng/mL 04/07/20 Range/Units 10:55 WBC (3.8-10.6) k/uL RBC (4.30-5.90) m/uL Hgb (13.0-17.5) gm/dL Hct (39.0-53.0) % MCHC (31.0-37.0) g/dL RDW (11.5-15.5) % Plt Count (150-450) k/uL BUN 41 H (9-20) mg/dL Glucose 173 H (74-99) mg/dL Calcium 7.5 L (8.4-10.2) mg/dL Ferritin (22.0-322.0) ng/mL Procalcitonin (0.02-0.09) ng/mL Microbiology - Last 24 Hours (Table) 04/06/20 12:54 Blood Culture - Preliminary Blood No Growth after 24 hours 04/02/20 17:50 Blood Culture - Preliminary Blood No Growth after 96 hours 04/02/20 17:43 Blood Culture - Preliminary Blood No Growth after 96 hours Assessment and Plan Assessment: 1. Covid 19 infection without obvious worsening of the patient's chronic res piratory status, patient had a recent admission for Covid 19 related pneumonitis, chest x-ray shows some increase in localized infiltrate in the right upper lobe, and shows chronic interstitial changes 2. Febrile illness secondary to above 3. Recent episode of pseudomonas aeruginosa pneumonia, discharged to [facility] on ciprofloxacin 4. Chronic nonhealing ulcers and wounds of the lower extremities and sacrum, wound culture of the right foot was positive for MRSA and Pseudomonas 5. History of atrial fibrillation on Xarelto 6. History of congestive heart failure 7. Chronic obstructive pulmonary disease, previous heavy tobacco use 8. Hypertension 9. History of myocardial infarction in 1987 10. Osteoarthritis 11. History of bilateral breast masses 12. Hypothyroidism 13. History of colon polyps 14. Chronic hypoxemic respiratory failure related to COPD 15. History of aspiration pneumonia 16. Chronic back pain Plan: The patient was seen and evaluated by Dr. Herrera Continue the current treatment plan Titrate down the FiO2 as tolerated Antibiotics per infectious disease Possible transfer to [facility] on 04/10/2020 We will continue to follow I, the cosigning physician, performed a history & physical examination of the patient. Lungs sounds basilar crackles, few scattered rhonchi. Maintaining good O2 saturations in the 90s on 3 L/m per nasal cannula. I discussed the assessment and plan of care with my nurse practitioner, Petra Rivera. I attest to the above note as dictated by her.
[2020-04-07] MEDS: COLLAGENASE 250 UNIT/GM OINTMENT 30 GM TUBE TOPICAL SCH (18:13)
[2020-04-07] MEDS: ASCORBIC ACID 500 MG TAB PO SCH (18:14)
[2020-04-07] MEDS: CALCIUM CARBONATE 500 MG CHEWABLE PO SCH (18:14)
[2020-04-07] MEDS: CYANOCOBALAMIN 500 MCG TAB PO SCH (18:15)
[2020-04-07] MEDS: CHOLECALCIFEROL 1,000 UNIT TAB PO SCH (18:15)
[2020-04-07] MEDS: MULTIVITAMINS, THERA 1 EACH TAB PO SCH (18:16)
[2020-04-07] MEDS: ATORVASTATIN 40 MG TAB PO SCH (22:06)
[2020-04-07] MEDS: REMDESIVIR 100 MG in SODIUM CHLORIDE 0.9% 250 ML IVPB SCH (22:06)
[2020-04-07] MEDS: DOCUSATE 100 MG CAP PO SCH (22:07)
--- NOTE | 2020-04-07 22:25 | PN ---
PROGRESS NOTE DATE OF SERVICE: 04/07/2020 REASON FOR FOLLOWUP: COVID-19 pneumonia. INTERVAL HISTORY: The patient's overall fever pattern has improved. No fever in the last 24 hours. The patient overall is feeling better and is breathing comfortably. Denies having any chest pain. Occasional cough. No abdominal pain or diarrhea. PHYSICAL EXAMINATION: Blood pressure 126/53, pulse of 90, temperature 97.8. He is 95% on 2 L nasal cannula. General description is an elderly male lying in bed in no distress. RESPIRATORY SYSTEM: Unlabored breathing. Diminished breath sounds at the base. No wheeze. HEART: S1, S2. Regular rate and rhythm. ABDOMEN: Soft. No tenderness. LABS: Hemoglobin is 8.2, white count 2.7, BUN of 41, creatinine 0.95. DIAGNOSTIC IMPRESSION AND PLAN: Patient with a fever and pneumonia secondary to COVID-19, symptom onset April 02. The patient clinically responded with COVID-19 with addition of the dexamethasone and remdesivir; to continue along with supportive care, and monitor his clinical course closely. MMODL / IJN: [id number] /
[2020-04-08] MEDS: PIPERACILLIN-TAZOBACTAM 3.375 GM in SODIUM CHLORIDE 0.9% 100 ML IVPB SCH ×2 (00:24→09:07)
[2020-04-08 07:55] LABS: African American GFR (CKD) >90 (>60 ml/min/1.73 sqM); Anion Gap 5 mmol/L; Blood Urea Nitrogen 36 mg/dL (9-20); Carbon Dioxide 27 mmol/L (22-30); Chloride 110 mmol/L (98-107); Glucose 141 mg/dL (74-99); Potassium 3.6 mmol/L (3.5-5.1); Sodium 142 mmol/L (137-145)
[2020-04-08 07:56] LABS: Calcium 7.6 mg/dL (8.4-10.2); Non-African American GFR(CKD) 84 (>60 ml/min/1.73 sqM)
[2020-04-08 08:11] LABS: Basophils % (A) 0 %; Eosinophils % (A) 0 %; HCT 28.6 % (39.0-53.0); HGB 8.5 gm/dL (13.0-17.5); Hypochromasia Marked; Lymphocytes # (A) 0.4 k/uL (1.0-4.8); Lymphocytes % (A) 10 %; MCH 25.9 pg (25.0-35.0); MCHC 29.6 g/dL (31.0-37.0); MCV 87.6 fL (80.0-100.0); Mean Platelet Volume 8.3; Monocytes # (A) 0.3 k/uL (0-1.0); Monocytes % (A) 7 %; Neutrophils # (A) 3.4 k/uL (1.3-7.7); Neutrophils % (A) 81 %; Platelet Count 123 k/uL (150-450); RBC 3.27 m/uL (4.30-5.90); RDW 15.8 % (11.5-15.5); WBC 4.2 k/uL (3.8-10.6)
[2020-04-08] MEDS: SYMBICORT 80-4.5 MCG INHALER INHALATION SCH ×2 (08:40→21:34)
[2020-04-08] MEDS: ALBUTEROL HFA INHALER INHALATION SCH ×4 (08:40→21:34)
[2020-04-08] MEDS: ZINC SULFATE 220 MG CAP PO SCH (09:07)
[2020-04-08] MEDS: FAMOTIDINE 20 MG TAB PO SCH ×2 (09:07→22:43)
[2020-04-08] MEDS: RIVAROXABAN 20 MG TAB PO SCH (09:07)
[2020-04-08] MEDS: DEXAMETHASONE SOD PHOSPHATE 10 MG/ML 1 ML VIAL IV SCH (09:07)
[2020-04-08] MEDS: FUROSEMIDE 40 MG TAB PO SCH (09:07)
[2020-04-08] MEDS: METOPROLOL TARTRATE 12.5 MG TAB PO SCH ×2 (09:07→17:09)
[2020-04-08] MEDS: GABAPENTIN 300 MG CAP PO SCH ×2 (09:07→17:09)
[2020-04-08] MEDS: COLLAGENASE 250 UNIT/GM OINTMENT 30 GM TUBE TOPICAL SCH (09:08)
[2020-04-08] MEDS: oxyCODONE-APAP 10-325MG 1 EACH TAB PO PRN (09:19)
[2020-04-08] MEDS: TIOTROPIUM 2.5 MCG INHALER INHALATION SCH (11:47)
--- NOTE | 2020-04-08 13:15 | P.PN ---
Subjective On-call hospitalist covering Dr. Abraham over the weekend This is a pleasant 60 years old male with multiple medical problems as below Ho presents because of respiratory symptoms for a few days like 5 days, he is been tested positive for cough and he had low oxygen saturation and 50s to 88 while on 3 L oxygen on admission. His been followed by pulmonary service and he was placed on vitamin C, zinc, dexamethasone and remdeesivir , also is on Xarelto home medication for his atrial fibrillation. Oxygen saturation currently 96% on 2 L Patient also has pressure ulcers stage II on the sacrum, as well as bilateral heel pressure ulcers which are growing pseudomonas and he is been covered with Zosyn [facility] He is slightly anemic with hemoglobin 8.5, which is his baseline. CONSTITUTIONAL: No fever, no malaise, no fatigue. HEENT: No recent visual problems or hearing problems. Denied any sore throat. CARDIOVASCULAR: No orthopnea, PND, no palpitations, no syncope. PULMONARY: No significant shortness of breath, no cough, no hemoptysis. GASTROINTESTINAL: No diarrhea, no nausea, no vomiting, no abdominal pain. Normoactive bowel sounds. NEUROLOGICAL: No headaches, no weakness, no numbness. Active Medications Generic Name Dose Route Start Last Admin Trade Name Freq PRN Reason Stop Dose Admin Acetaminophen 650 mg 04/02/20 20:11 04/06/20 10:52 Acetaminophen Tab 325 Mg Tab PO 650 mg Q6HR PRN Administration Mild Pain or Fever > 100.5 Albuterol Sulfate 2 puff 04/02/20 20:21 Albuterol Hfa Inhaler INHALATION RT-QID PRN Shortness Of Breath Albuterol Sulfate 2 puff 04/03/20 08:00 04/08/20 11:47 Albuterol Hfa Inhaler INHALATION 2 puff RT-QID JULISSA Administration Ascorbic Acid 1,000 mg 04/03/20 17:00 04/07/20 18:14 Ascorbic Acid 500 Mg Tab PO 1,000 mg DAILY@1700 JULISSA Administration Atorvastatin Calcium 40 mg 04/02/20 21:00 04/07/20 22:06 Atorvastatin 40 Mg Tab PO 40 mg HS@2100 JULISSA Administration Bisacodyl 10 mg 04/02/20 20:21 Bisacodyl 10 Mg Supp RECTAL DAILY PRN Constipation Budesonide/Formoterol Fumarate 2 puff 04/02/20 20:00 04/08/20 08:40 Symbicort 80-4.5 Mcg Inhaler INHALATION 2 puff RT-BID JULISSA Administration Calcium Carbonate/Glycine 500 mg 04/03/20 17:00 04/07/20 18:14 Calcium Carbonate 500 Mg Chewable PO 500 mg DAILY@1700 JULISSA Administration Cholecalciferol 1,000 unit 04/03/20 17:00 04/07/20 18:15 Cholecalciferol 1,000 Unit Tab PO 1,000 unit DAILY@1700 JULISSA Administration Collagenase 1 applic 04/05/20 09:00 04/08/20 09:08 Collagenase 250 Unit/Gm Ointment 30 Gm Tube TOPICAL Not Given DAILY [facility] Cyanocobalamin 1,000 mcg 04/03/20 17:00 04/07/20 18:15 Cyanocobalamin 500 Mcg Tab PO 1,000 mcg DAILY@1700 JULISSA Administration Dexamethasone Sodium Phosphate 6 mg 04/06/20 12:30 04/08/20 09:07 Dexamethasone Sod Phosphate 10 Mg/Ml 1 Ml Vial IV 6 mg DAILY JULISSA Administration Docusate Sodium 100 mg 04/07/20 21:00 04/07/20 22:07 Docusate 100 Mg Cap PO 100 mg HS JULISSA Administration Famotidine 20 mg 04/02/20 21:00 04/08/20 09:07 Famotidine 20 Mg Tab PO 20 mg BID@0800,2100 JULISSA Administration Furosemide 40 mg 04/03/20 08:00 04/08/20 09:07 Furosemide 40 Mg Tab PO 40 mg DAILY@0800 JULISSA Administration Gabapentin 600 mg 04/03/20 08:00 04/08/20 09:07 Gabapentin 300 Mg Cap PO 600 mg BID@0800,1700 JULISSA Administration Piperacillin Sod/Tazobactam 100 mls @ 25 mls/hr 04/05/20 16:00 04/08/20 09:07 Sod 3.375 gm/ Sodium Chloride IVPB 25 mls/hr Q8HR JULISSA Administration Remdesivir 100 mg/ Sodium 250 mls @ 250 mls/hr 04/07/20 20:00 04/07/20 22:06 Chloride IVPB 04/10/20 20:59 250 mls/hr Q24H JULISSA Administration Ibuprofen 400 mg 04/02/20 20:11 04/06/20 13:04 Ibuprofen 400 Mg Tab PO 400 mg Q6HR PRN Administration Mild Pain or Fever > 100.5 Magnesium Hydroxide 2,400 mg 04/02/20 20:21 Magnesium Hydroxide 2,400 Mg/10 Ml Cup PO DAILY PRN Constipation Metoprolol Tartrate 12.5 mg 04/03/20 08:00 04/08/20 09:07 Metoprolol Tartrate 12.5 Mg Tab PO 12.5 mg BID@0800,1700 JULISSA Administration Miscellaneous Information 1 each 04/02/20 23:07 Magnesium Replacement Protocol 1 Each Misc MISCELLANE DAILY PRN Per Protocol Protocol Miscellaneous Information 1 each 04/03/20 12:05 Potassium Replacement Protocol 1 Each Misc MISCELLANE DAILY PRN Per Protocol Protocol Multivitamins 1 each 04/03/20 17:00 04/07/20 18:16 Multivitamins, Thera 1 Each Tab PO 1 each DAILY@1700 JULISSA Administration Naloxone HCl 0.2 mg 04/02/20 20:11 Naloxone 0.4 Mg/Ml 1 Ml Vial IV Q2M PRN Opioid Reversal Oxycodone/Acetaminophen 1 each 04/02/20 23:06 04/08/20 09:19 Oxycodone-Apap 10-325mg 1 Each Tab PO 1 each TID PRN Administration Pain Rivaroxaban 20 mg 04/03/20 08:00 04/08/20 09:07 Rivaroxaban 20 Mg Tab PO 20 mg DAILY@0800 JULISSA Administration Sodium Biphosphate/Sodium Phosphate 133 ml 04/02/20 20:21 Na Phos,M-B/Na Phos,Di-Ba 133 Ml Enema RECTAL DAILY PRN Constipation Tiotropium [place] 2 puff 04/03/20 08:00 04/08/20 11:47 Tiotropium 2.5 Mcg Inhaler INHALATION 2 puff RT-DAILY JULISSA Administration Zinc Sulfate 220 mg 04/05/20 10:30 04/08/20 09:07 Zinc Sulfate 220 Mg Cap PO 220 mg DAILY JULISSA Administration Objective - Vital Signs Vital signs: Vital Signs Temp 98.2 F 04/08/20 11:47 Pulse 81 04/08/20 11:47 Resp 18 04/08/20 11:47 BP 128/67 04/08/20 11:47 Pulse Ox 96 04/08/20 11:47 Intake & Output 04/07/20 04/08/20 04/08/20 18:59 06:59 18:59 Intake Total 1800 120 Output Total 2400 Balance 1800 -2400 120 Weight 77.2 kg 81.5 kg Intake: Intake, IV Titration 200 Amount Piperacillin-Tazobactam 3 200 .375 gm In Sodium Chloride 0.9% 100 ml @ 25 mls/hr IVPB Q8HR [facility] Rx# :[id number] Oral 1600 120 Output: Urine 2400 Other: Voiding Method Indwelling Catheter Indwelling Catheter Indwelling Catheter # Voids 1 - Exam GENERAL: The patient is alert and oriented x3, not in any acute distress. Well developed, well nourished. HEENT: Pupils are round and equally reacting to light. EOMI. No scleral icterus. No conjunctival pallor. Normocephalic, atraumatic. No pharyngeal erythema. No thyromegaly. CARDIOVASCULAR: S1 and S2 present. No murmurs, rubs, or gallops. PULMONARY: Chest is clear to auscultation, no wheezing or crackles. ABDOMEN: Soft, nontender, nondistended, normoactive bowel sounds. No palpable organomegaly. -MUSCULOSKELETAL: No joint swelling or deformity. Stage II sacral pressure ulcer -EXTREMITIES: No cyanosis, clubbing, or pedal edema. Bilateral ankle ulcers NEUROLOGICAL: Gross neurological examination did not reveal any focal deficits. SKIN: No rashes. no petechiae. - Labs CBC & Chem 7: 04/08/20 07:18 04/08/20 07:18 Labs: Abnormal Lab Results - Last 24 Hours (Table) 04/08/20 04/08/20 Range/Units 07:18 07:18 RBC 3.27 L (4.30-5.90) m/uL Hgb 8.5 L (13.0-17.5) gm/dL Hct 28.6 L (39.0-53.0) % MCHC 29.6 L (31.0-37.0) g/dL RDW 15.8 H (11.5-15.5) % Plt Count 123 L (150-450) k/uL Lymphocytes # 0.4 L (1.0-4.8) k/uL Chloride 110 H (98-107) mmol/L BUN 36 H (9-20) mg/dL Glucose 141 H (74-99) mg/dL Calcium 7.6 L (8.4-10.2) mg/dL Microbiology - Last 24 Hours (Table) 04/02/20 17:50 Blood Culture - Preliminary Blood No Growth after 120 hours 04/02/20 17:43 Blood Culture - Preliminary Blood No Growth after 120 hours 04/06/20 12:54 Blood Culture - Preliminary Blood No Growth after 24 hours Assessment and Plan Assessment: Acute Covid pneumonia, T-max 103. Possible aspiration pneumonia, chest x-ray reporting worsening right upper lobe. Syncope reported at [facility] secondary to the above. Fevers secondary to the Covid pneumonia, persists despite bacterial pneumonia coverage, Remedesivir initiated Possible acute UTI, cultures negative. Recently discharged with Sepsis secondary to pseudomonas aeruginosa pneumonia and MRSA with pseudomonas aeruginosa of chronic right foot wound , chronic stage III sacral pressure ulcer. Reported altered mental status, possible acute metabolic encephalopathy, resolved. Acute hypoxic respiratory failure secondary to the above. Subacute rehab reported desating down to the low 50s to high 80s on 3 L nasal cannula per ER report. Acute on chronic hypoxic respiratory failure secondary to the above, in a patient with severe COPD. Bilateral lung nodules, outpatient PET scan with pulmonary recommended Possible mass at the GE junction, however EGD reported no apparent mass,small paraesophageal hernia, presbyesophagus, mild gastritis. History of Sujit fundoplication CAD, history of [place], CABG Chronic atrial fibrillation, anticoagulated with Xarelto Chronic CHF, EF currently unknown Hypertension Hypothyroidism Degenerative joint disease Chronic back pain History of nicotine dependence Hypokalemic Plan: This is a pleasant 80 years old male who presents with colic pneumonia and pressure ulcers. Continue with vitamin C, zinc, dexamethasone and remdeesivir , also is on Xarelto home medication for his atrial fibrillation. Pulmonary team on the case Labs and medication were reviewed.. Continue same treatment. Continue with symptomatic treatment. Resume home medication. Monitor lytes and vitals. DVT and GI prophylaxis. Further recommendationsas per clinical course of the patient DVT prophylaxis: Xarelto GI Prophylaxis: Pepcid Mostly going to [facility] on Friday
--- NOTE | 2020-04-08 15:15 | P.PN ---
Subjective Progress Note Date: 04/08/20 Principal diagnosis: COVID 19 infection. On 04/05/2020 patient seen in follow-up on selective care unit, he is resting comfortably in bed, breathing comfortably, no significant cough, no compressive chest pain, no hemoptysis, vital signs have been stable, follow-up chest x-ray t nikki shows COPD with increasing localized area of infiltrate in the right upper lobe, chronic interstitial lung disease, pulmonary fibrosis or interstitial pneumonitis. Clinically patient has been stable, no altered mentation, no fever today, his last episode of fever was yesterday with a temp of 102.9F. Urine and blood cultures have been negative. Is currently on Zosyn per ID service recommendations. At that recent wound cultures positive for MRSA and Pseudomonas, and sputum cultures positive for pseudomonas. Clinically patient is improving. The patient is seen today 04/06/2020 and follow-up on the selective care unit. He is currently awake and alert in no acute distress. Resting fairly comfortably in bed. Maintaining O2 saturations in the 90s on 4 L/m per nasal cannula. Continues to spike temperatures. Currently 103.1. Tachycardic. Blood cultures reveal no growth. Urine culture reveals no growth. White count 3.3. Hemoglobin 8.5. Platelet count 108. D-dimer 0.70. Sodium 141. Potassium 4.1. Creatinine 0.99. C-reactive protein 124. He is continued on Symbicort, albuterol, antibiotics in the form of Zosyn. Anticoagulated with Xarelto. Continued on dexamethasone, Pepcid, vitamin supplements. The patient is seen today 04/07/2020 follow-up on the selective care unit. He is currently resting quite comfortably in bed. Awake and alert in no acute distress. He denies any worsening shortness of breath, cough or congestion. Maintaining O2 saturation in the mid 90s on 3 L/m per nasal cannula. He is afebrile today. Hemodynamically stable. White count 2.6. Hemoglobin 8.2. Sodium 141. Potassium 3.7. Creatinine 0.95. He is continued on Symbicort, alb uterol, antibiotics in the form of Zosyn. Anticoagulated with Xarelto. Continued on dexamethasone, Pepcid, vitamin supplements. Progress note dated 04/08/2020. The patient is seen over on selective care unit. He seems be doing relatively well. The patient is not demonstrating any signs or symptoms of respiratory distress. His temperature is 98.2 heart rate 81 respiratory rate 18, 2 L satura tion is 96% and his blood pressure is 128/67. He is hemodynamically stable. He was started on remdesivir. His white count is 4.2, hemoglobin 8.5, hematocrit 28.6, and platelet count 123,000. His most recent d-dimer was 0.7. Sodium 142, potassium 3.6,, chloride 110, CO2 27, anion gap 5, BUN 36, and creatinine 0.78. He continues on Decadron, Pepcid, vitamin C, vitamin D3, and zinc. Objective - Vital Signs Vital signs: Vital Signs Temp 98.2 F 04/08/20 11:47 Pulse 81 04/08/20 11:47 Resp 18 04/08/20 11:47 BP 128/67 04/08/20 11:47 Pulse Ox 96 04/08/20 11:47 Intake & Output 04/07/20 04/08/20 04/08/20 18:59 06:59 18:59 Intake Total 1800 120 Output Total 2400 900 Balance 1800 -2400 -780 Weight 77.2 kg 81.5 kg Intake: Intake, IV Titration 200 Amount Piperacillin-Tazobactam 3 200 .375 gm In Sodium Chloride 0.9% 100 ml @ 25 mls/hr IVPB Q8HR [facility] Rx# :[id number] Oral 1600 120 Output: Urine 2400 900 Other: Voiding Method Indwelling Catheter Indwelling Catheter Indwelling Catheter # Voids 1 - Exam No acute distress, oriented 3. The patient is currently on nasal O2 at 2 L/m. HEENT examination is grossly unremarkable. Mucous membranes are moist. No oral lesions. Neck supple. Full range of motion. No adenopathy thyromegaly or neck vein distention. Cardiovascular examination reveals regular rhythm rate. S1-S2 normal. No S3 or S4. No discernible murmur noted. Heart rate is 81 bpm. Lungs reveal clear breath sounds. Her sounds are equal bilaterally. No adventitious lung sounds including wheezes rhonchi or crackles. Abdomen soft bowel sounds are heard. No masses or tenderness. Extremities are intact. No cyanosis clubbing or edema. The patient's lower extremity lesions are covered in dressings. Skin is without rash or lesion. Neurologic examination is brief but nonfocal. - Labs CBC & Chem 7: 04/08/20 07:18 04/08/20 07:18 Labs: Abnormal Lab Results - Last 24 Hours (Table) 04/08/20 04/08/20 Range/Units 07:18 07:18 RBC 3.27 L (4.30-5.90) m/uL Hgb 8.5 L (13.0-17.5) gm/dL Hct 28.6 L (39.0-53.0) % MCHC 29.6 L (31.0-37.0) g/dL RDW 15.8 H (11.5-15.5) % Plt Count 123 L (150-450) k/uL Lymphocytes # 0.4 L (1.0-4.8) k/uL Chloride 110 H (98-107) mmol/L BUN 36 H (9-20) mg/dL Glucose 141 H (74-99) mg/dL Calcium 7.6 L (8.4-10.2) mg/dL Microbiology - Last 24 Hours (Table) 04/02/20 17:50 Blood Culture - Preliminary Blood No Growth after 120 hours 04/02/20 17:43 Blood Culture - Preliminary Blood No Growth after 120 hours 04/06/20 12:54 Blood Culture - Preliminary Blood No Growth after 24 hours Assessment and Plan Assessment: 1. Covid 19 infection without obvious worsening of the patient's chronic respiratory status, patient had a recent admission for Covid 19 related pneumonitis, chest x-ray shows some increase in localized infiltrate in the right upper lobe, and shows chronic interstitial changes. 2. Febrile illness secondary to above. 3. Recent episode of pseudomonas aeruginosa pneumonia, discharged to [facility] on ciprofloxacin. 4. Chronic nonhealing ulcers and wounds of the lower extremities and sacrum, wound culture of the right foot was positive for MRSA and Pseudomonas. 5. History of atrial fibrillation on Xarelto. 6. History of congestive heart failure. 7. Chronic obstructive pulmonary disease, previous heavy tobacco use. 8. Hypertension. 9. History of myocardial infarction in 1987. 10. Osteoarthritis. 11. History of bilateral breast masses. 12. Hypothyroidism. 13. History of colon polyps. 14. Chronic hypoxemic respiratory failure related to COPD. 15. History of aspiration pneumonia. 16. Chronic back pain. Plan: Plan dated 04/08/2020. Currently, the patient is on an albuterol inhaler, and Symbicort. In addition, he is getting vitamin C, vitamin D3, and zinc. The patient is also getting Decadron, 6 mg IV push daily. The patient was also started on remdesivir by infectious diseases. The patient was also maintained on xarelto. We will continue to follow. Prognosis is guarded. Additional recommendations and suggestions are forthcoming. His respiratory status is stable. Time with Patient: Less than 30
--- NOTE | 2020-04-08 16:10 | PN ---
PROGRESS NOTE DATE OF SERVICE: 04/08/2020 REASON FOR FOLLOWUP: COVID-19 pneumonia. INTERVAL HISTORY: The patient is currently afebrile. The patient has been feeling better. He is breathing comfortably. Patient denies having any chest pain or shortness of breath. He did have a cough, not bringing up any sputum. No nausea. No vomiting. No abdominal pain. No diarrhea. PHYSICAL EXAMINATION: Blood pressure 128/67, pulse of 81, temperature 98.2. He is 96% on 2 L nasal cannula. General description: The patient is an elderly male lying in bed in no distress. Respiratory system: Unlabored breathing with decreased breath sounds in the base, with no wheeze. Heart S1, S2. Regular rate and rhythm. Abdomen soft, no tenderness. LABS: Hemoglobin 8.5, white count 4.2, BUN of , creatinine 0.78. IMPRESSION/PLAN: Patient with fever secondary to acute COVID-19 infection. Symptoms started April 02. He seemed to be clinically responding to the dexamethasone, Remdesivir, to continue along with Xarelto. Clinical suspicion of underlying secondary bacterial pneumonia hence we will discontinue Zosyn and monitor clinical course closely. MMODL / IJN: [id number] /
[2020-04-08] MEDS: CYANOCOBALAMIN 500 MCG TAB PO SCH (17:09)
[2020-04-08] MEDS: ASCORBIC ACID 500 MG TAB PO SCH (17:10)
[2020-04-08] MEDS: CHOLECALCIFEROL 1,000 UNIT TAB PO SCH (17:10)
[2020-04-08] MEDS: CALCIUM CARBONATE 500 MG CHEWABLE PO SCH (17:10)
[2020-04-08] MEDS: MULTIVITAMINS, THERA 1 EACH TAB PO SCH (17:10)
[2020-04-08] MEDS: DOCUSATE 100 MG CAP PO SCH (22:43)
[2020-04-08] MEDS: REMDESIVIR 100 MG in SODIUM CHLORIDE 0.9% 250 ML IVPB SCH (22:43)
[2020-04-08] MEDS: ATORVASTATIN 40 MG TAB PO SCH (22:44)
[2020-04-09] MEDS: ALBUTEROL HFA INHALER INHALATION SCH ×4 (08:33→19:26)
[2020-04-09] MEDS: TIOTROPIUM 2.5 MCG INHALER INHALATION SCH (08:33)
[2020-04-09] MEDS: SYMBICORT 80-4.5 MCG INHALER INHALATION SCH ×2 (08:33→19:32)
[2020-04-09] MEDS: DEXAMETHASONE SOD PHOSPHATE 10 MG/ML 1 ML VIAL IV SCH (08:42)
[2020-04-09] MEDS: FAMOTIDINE 20 MG TAB PO SCH ×2 (08:42→21:07)
[2020-04-09] MEDS: ZINC SULFATE 220 MG CAP PO SCH (08:42)
[2020-04-09] MEDS: FUROSEMIDE 40 MG TAB PO SCH (08:42)
[2020-04-09] MEDS: RIVAROXABAN 20 MG TAB PO SCH (08:42)
[2020-04-09] MEDS: GABAPENTIN 300 MG CAP PO SCH ×2 (08:42→15:22)
[2020-04-09] MEDS: METOPROLOL TARTRATE 12.5 MG TAB PO SCH ×2 (08:42→15:22)
[2020-04-09] MEDS: COLLAGENASE 250 UNIT/GM OINTMENT 30 GM TUBE TOPICAL SCH (08:56)
[2020-04-09 08:59] LABS: Glucose,Whole Blood 179 mg/dL (75-99)
--- NOTE | 2020-04-09 10:13 | P.PN ---
Subjective On-call hospitalist covering Dr. Abraham over the weekend This is a pleasant 60 years old male with multiple medical problems as below Ho presents because of respiratory symptoms for a few days like 5 days, he is been tested positive for cough and he had low oxygen saturation and 50s to 88 while on 3 L oxygen on admission. His been followed by pulmonary service and he was placed on vitamin C, zinc, dexamethasone and remdeesivir , also is on Xarelto home medication for his atrial fibrillation. Oxygen saturation currently 96% on 2 L Patient also has pressure ulcers stage II on the sacrum, as well as bilateral heel pressure ulcers which are growing pseudomonas and he is been covered with Zosyn Patient pending placement at long term on Friday. He is slightly anemic with hemoglobin 8.5, which is his baseline. 04/09/2020 Patient awake sitting up in bed, he feels more short of breath today with, trend white secretions. He denies chest pain but he has some nausea. He is slightly tachypneic and saturating 96% on 2 L oxygen via nasal cannula Remains on dexamethasone,remidesivir. Known dose of Xarelto. Also he is on zinc and vitamin C Zosyn for possible aspiration pneumonia was discontinued yesterday. Objective - Vital Signs Vital signs: Vital Signs Temp 98 F 04/09/20 08:00 Pulse 82 04/09/20 08:00 Resp 18 04/09/20 08:00 BP 129/69 04/09/20 08:00 Pulse Ox 96 04/09/20 08:00 Intake & Output 04/08/20 04/09/20 04/09/20 18:59 06:59 18:59 Intake Total 460 Output Total 900 2024 Balance -440 -2024 Weight 83.5 kg Intake: Oral 460 Output: Urine 900 2024 Other: Voiding Method Indwelling Catheter Indwelling Catheter Indwelling Catheter - Exam GENERAL: The patient is alert and oriented x3, not in any acute distress. Well developed, well nourished. HEENT: Pupils are round and equally reacting to light. EOMI. No scleral icterus. No conjunctival pallor. Normocephalic, atraumatic. No pharyngeal erythema. No thyromegaly. CARDIOVASCULAR: S1 and S2 present. No murmurs, rubs, or gallops. PULMONARY: Chest is clear to auscultation, no wheezing or crackles. ABDOMEN: Soft, nontender, nondistended, normoactive bowel sounds. No palpable organomegaly. -MUSCULOSKELETAL: No joint swelling or deformity. Stage II sacral pressure ulcer -EXTREMITIES: No cyanosis, clubbing, or pedal edema. Bilateral ankle ulcers NEUROLOGICAL: Gross neurological examination did not reveal any focal deficits. SKIN: No rashes. no petechiae. - Labs CBC & Chem 7: 04/08/20 07:18 04/08/20 07:18 Labs: Abnormal Lab Results - Last 24 Hours (Table) 04/09/20 Range/Units 08:57 POC Glucose (mg/dL) 179 H (75-99) mg/dL Microbiology - Last 24 Hours (Table) 04/02/20 17:50 Blood Culture - Final Blood No Growth after 144 hours 04/02/20 17:43 Blood Culture - Final Blood No Growth after 144 hours 04/06/20 12:54 Blood Culture - Preliminary Blood No Growth after 48 hours Assessment and Plan Assessment: Acute Covid pneumonia, T-max 103. Possible aspiration pneumonia, chest x-ray reporting worsening right upper lobe. Syncope reported at [facility] secondary to the above. Fevers secondary to the Covid pneumonia, persists despite bacterial pneumonia coverage, Remedesivir initiated Possible acute UTI, cultures negative. Recently discharged with Sepsis secondary to pseudomonas aeruginosa pneumonia and MRSA with pseudomonas aeruginosa of chronic right foot wound , chronic stage III sacral pressure ulcer. Reported altered mental status, possible acute metabolic encephalopathy, resolved. Acute hypoxic respiratory failure secondary to the above. Subacute rehab reported desating down to the low 50s to high 80s on 3 L nasal cannula per ER report. Acute on chronic hypoxic respiratory failure secondary to the above, in a patient with severe COPD. Bilateral lung nodules, outpatient PET scan with pulmonary recommended Possible mass at the GE junction, however EGD reported no apparent mass,small paraesophageal hernia, presbyesophagus, mild gastritis. History of Sujit fundoplication CAD, history of [place], CABG Chronic atrial fibrillation, anticoagulated with Xarelto Chronic CHF, EF currently unknown Hypertension Hypothyroidism Degenerative joint disease Chronic back pain History of nicotine dependence Hypokalemic Plan: This is a pleasant 80 years old male who presents with colic pneumonia and pressure ulcers. Continue with vitamin C, zinc, dexamethasone and remdesivir , also is on Xarelto home medication for his atrial fibrillation. Pulmonary team on the case Labs and medication were reviewed.. Continue same treatment. Continue with symptomatic treatment. Resume home medication. Monitor lytes and vitals. DVT and GI prophylaxis. Further recommendationsas per clinical course of the patient DVT prophylaxis: Xarelto GI Prophylaxis: Pepcid Mostly going to ECF on Friday Dr. Abraham team will resume the care of the patient tomorrow
--- NOTE | 2020-04-09 14:45 | P.PN ---
Subjective Progress Note Date: 04/09/20 Principal diagnosis: COVID 19 infection. On 04/05/2020 patient seen in follow-up on selective care unit, he is resting comfortably in bed, breathing comfortably, no significant cough, no compressive chest pain, no hemoptysis, vital signs have been stable, follow-up chest x-ray t nikki shows COPD with increasing localized area of infiltrate in the right upper lobe, chronic interstitial lung disease, pulmonary fibrosis or interstitial pneumonitis. Clinically patient has been stable, no altered mentation, no fever today, his last episode of fever was yesterday with a temp of 102.9F. Urine and blood cultures have been negative. Is currently on Zosyn per ID service recommendations. At that recent wound cultures positive for MRSA and Pseudomonas, and sputum cultures positive for pseudomonas. Clinically patient is improving. The patient is seen today 04/06/2020 and follow-up on the selective care unit. He is currently awake and alert in no acute distress. Resting fairly comfortably in bed. Maintaining O2 saturations in the 90s on 4 L/m per nasal cannula. Continues to spike temperatures. Currently 103.1. Tachycardic. Blood cultures reveal no growth. Urine culture reveals no growth. White count 3.3. Hemoglobin 8.5. Platelet count 108. D-dimer 0.70. Sodium 141. Potassium 4.1. Creatinine 0.99. C-reactive protein 124. He is continued on Symbicort, albuterol, antibiotics in the form of Zosyn. Anticoagulated with Xarelto. Continued on dexamethasone, Pepcid, vitamin supplements. The patient is seen today 04/07/2020 follow-up on the selective care unit. He is currently resting quite comfortably in bed. Awake and alert in no acute distress. He denies any worsening shortness of breath, cough or congestion. Maintaining O2 saturation in the mid 90s on 3 L/m per nasal cannula. He is afebrile today. Hemodynamically stable. White count 2.6. Hemoglobin 8.2. Sodium 141. Potassium 3.7. Creatinine 0.95. He is continued on Symbicort, alb uterol, antibiotics in the form of Zosyn. Anticoagulated with Xarelto. Continued on dexamethasone, Pepcid, vitamin supplements. Progress note dated 04/08/2020. The patient is seen over on selective care unit. He seems be doing relatively well. The patient is not demonstrating any signs or symptoms of respiratory distress. His temperature is 98.2 heart rate 81 respiratory rate 18, 2 L satura tion is 96% and his blood pressure is 128/67. He is hemodynamically stable. He was started on remdesivir. His white count is 4.2, hemoglobin 8.5, hematocrit 28.6, and platelet count 123,000. His most recent d-dimer was 0.7. Sodium 142, potassium 3.6,, chloride 110, CO2 27, anion gap 5, BUN 36, and creatinine 0.78. He continues on Decadron, Pepcid, vitamin C, vitamin D3, and zinc. Progress note dated 04/09/2020. 80-year-old male well-known to our service. The patient appears to be doing relatively well. The patient was started on remdesivir by infectious diseases. He has maybe one day left. Clinically he is doing well. He is just on O2 at 2 L by nasal cannula. Saturations are 94%. Blood pressure 116/71, respiratory rate 18, heart rate 84, and temperature is normal. He remains on Decadron, Pepcid, vitamin C, vitamin D3, and zinc. No new laboratory data today. No recent chest x-ray. Antibiotics, have been discontinued by infectious diseases. The patient has no complaints today. He is hoping to be able to be discharged soon. Objective - Vital Signs Vital signs: Vital Signs Temp 98.4 F 04/09/20 12:00 Pulse 84 04/09/20 12:00 Resp 18 04/09/20 12:38 BP 116/71 04/09/20 12:00 Pulse Ox 94 L 04/09/20 12:00 Intake & Output 04/08/20 04/09/20 04/09/20 18:59 06:59 18:59 Intake Total 460 Output Total 2024 1350 Balance -440 -2024 -135 Weight 83.5 kg Intake: Oral 460 Output: Urine 900 2024 1350 Other: Voiding Method Indwelling Catheter Indwelling Catheter Indwelling Catheter # Bowel Movements 1 - Exam No acute distress, oriented 3. The patient is currently on nasal O2 at 2 L/m. Saturation is 94%. HEENT examination is grossly unremarkable. Mucous membranes are moist. No oral lesions. Neck supple. Full range of motion. No adenopathy thyromegaly or neck vein d istention. Cardiovascular examination reveals regular rhythm rate. S1-S2 normal. No S3 or S4. No discernible murmur noted. Heart rate is 84 bpm. Lungs reveal clear breath sounds. Her sounds are equal bilaterally. No adventitious lung sounds including wheezes rhonchi or crackles. Abdomen soft bowel sounds are heard. No masses or tenderness. Extremities are intact. No cyanosis clubbing or edema. The patient's lower extremity lesions are covered in dressings. Skin is without rash or lesion. Neurologic examination is brief but nonfocal. - Labs CBC & Chem 7: 04/08/20 07:18 04/08/20 07:18 Labs: Abnormal Lab Results - Last 24 Hours (Table) 04/09/20 Range/Units 08:57 POC Glucose (mg/dL) 179 H (75-99) mg/dL Microbiology - Last 24 Hours (Table) 04/02/20 17:50 Blood Culture - Final Blood No Growth after 144 hours 04/02/20 17:43 Blood Culture - Final Blood No Growth after 144 hours 04/06/20 12:54 Blood Culture - Preliminary Blood No Growth after 48 hours Assessment and Plan Assessment: 1. COVID 19 infection without obvious worsening of the patient's chronic respiratory status, patient had a recent admission for COVID 19 related pneumonitis, chest x-ray shows some increase in localized infiltrate in the right upper lobe, and shows chronic interstitial changes. 2. Febrile illness secondary to above. 3. Recent episode of pseudomonas aeruginosa pneumonia, discharged to [facility] on ci profloxacin. 4. Chronic nonhealing ulcers and wounds of the lower extremities and sacrum, wound culture of the right foot was positive for MRSA and Pseudomonas. 5. History of atrial fibrillation on Xarelto. 6. History of congestive heart failure. 7. Chronic obstructive pulmonary disease, previous heavy tobacco use. 8. Hypertension. 9. History of myocardial infarction in 1987. 10. Osteoarthritis. 11. History of bilateral breast masses. 12. Hypothyroidism. 13. History of colon polyps. 14. Chronic hypoxemic respiratory failure related to COPD. 15. History of aspiration pneumonia. 16. Chronic back pain. Plan: Plan dated 04/09/2020. Currently, the patient's doing much better. The patient's on 2 L nasal cannula. He is currently not on any antibiotics at this time. He remains on Symbicort, albuterol inhaler, vitamin C, vitamin D3, zinc, and Decadron. The Decadron can be discontinued after 10 days. Currently, he is not on any additional antibiotics. The patient's respiratory status is stable. Discharge planning underway. Time with Patient: Less than 30
[2020-04-09] MEDS: CALCIUM CARBONATE 500 MG CHEWABLE PO SCH (15:22)
[2020-04-09] MEDS: MULTIVITAMINS, THERA 1 EACH TAB PO SCH (15:22)
[2020-04-09] MEDS: CYANOCOBALAMIN 500 MCG TAB PO SCH (15:22)
[2020-04-09] MEDS: CHOLECALCIFEROL 1,000 UNIT TAB PO SCH (15:22)
[2020-04-09] MEDS: ASCORBIC ACID 500 MG TAB PO SCH (15:23)
[2020-04-09] MEDS: REMDESIVIR 100 MG in SODIUM CHLORIDE 0.9% 250 ML IVPB SCH (21:07)
[2020-04-09] MEDS: ATORVASTATIN 40 MG TAB PO SCH (21:07)
[2020-04-09] MEDS: DOCUSATE 100 MG CAP PO SCH (21:07)
--- NOTE | 2020-04-09 21:21 | PN ---
PROGRESS NOTE DATE OF SERVICE: 04/09/2020 REASON FOR FOLLOWUP: Acute COVID-19 pneumonia. INTERVAL HISTORY: Patient is currently afebrile. Mentioning that he is not feeling as good today, though denies having any chest pain. No shortness of breath. Occasional cough. No abdominal pain or diarrhea. PHYSICAL EXAMINATION: Blood pressure 114/60 with a pulse of 67, temperature 98.5. He is 97% on 2 L nasal cannula. General description is an elderly male lying in bed in no distress. Respiratory system: Unlabored breathing with decreased breath sounds in the bases. No wheeze. Heart S1, S2. Regular rate and rhythm. Abdomen soft, no tenderness. LAB: No new labs have been obtained today. DIAGNOSTIC IMPRESSION/PLAN: Patient with acute COVID-19 pneumonia in this patient seemed to have shown overall clinical improvement. He is currently on Remdesivir, day 4. He will complete a 5-day course tomorrow, Dexamethasone and to continue along with respiratory support and monitor clinical course closely. MMODL / IJN: [id number] /
[2020-04-10] MEDS: COLLAGENASE 250 UNIT/GM OINTMENT 30 GM TUBE TOPICAL SCH (08:51)
[2020-04-10] MEDS: DEXAMETHASONE SOD PHOSPHATE 10 MG/ML 1 ML VIAL IV SCH (08:57)
[2020-04-10] MEDS: RIVAROXABAN 20 MG TAB PO SCH (08:58)
[2020-04-10] MEDS: ASCORBIC ACID 500 MG TAB PO SCH (08:58)
[2020-04-10] MEDS: FAMOTIDINE 20 MG TAB PO SCH ×2 (08:58→20:37)
[2020-04-10] MEDS: ZINC SULFATE 220 MG CAP PO SCH (08:58)
[2020-04-10] MEDS: CYANOCOBALAMIN 500 MCG TAB PO SCH (08:58)
[2020-04-10] MEDS: FUROSEMIDE 40 MG TAB PO SCH (08:58)
[2020-04-10] MEDS: CHOLECALCIFEROL 1,000 UNIT TAB PO SCH (08:58)
[2020-04-10] MEDS: MULTIVITAMINS, THERA 1 EACH TAB PO SCH (08:58)
[2020-04-10] MEDS: GABAPENTIN 300 MG CAP PO SCH ×2 (09:03→17:39)
[2020-04-10] MEDS: METOPROLOL TARTRATE 12.5 MG TAB PO SCH ×2 (09:03→17:39)
[2020-04-10] MEDS: ALBUTEROL HFA INHALER INHALATION SCH ×5 (09:15→19:58)
[2020-04-10] MEDS: SYMBICORT 80-4.5 MCG INHALER INHALATION SCH ×3 (09:15→19:58)
[2020-04-10] MEDS: TIOTROPIUM 2.5 MCG INHALER INHALATION SCH ×2 (09:16→09:35)
--- NOTE | 2020-04-10 09:45 | P.PN ---
Subjective Progress Note Date: 04/10/20 80-year-old male well-known to our service. The patient is being seen for a FU on 04/10/2020. The patient has COPD, chronic hypoxic respiratory failure and the patient has COVID 19 pnuemonia. The patient is doing relatively well. The patient was started on remdesivir by infectious diseases and completed the treatment. Clinically he is doing well. He is just on O2 at 2 L by nasal cannula. Saturations are 94%. Blood pressure 116/71, respiratory rate 18, heart rate 84, and temperature is normal. He remains on Decadron, Pepcid, vitamin C, vitamin D3, and zinc. No new laboratory data today. No recent chest x-ray. Antibiotics, have been discontinued by infectious diseases. The patient has no complaints today. I noticed that the patient had a consolidation in his right upper lobe back on his last x-ray of 04/08/2020. Repeat chest x-ray revealed done today. Otherwise, he is losing weight. He has a congested cough. He is afebrile. He is still on Decadron. Is on no antibiotics for now. He is a [facility] resident. Objective - Vital Signs Vital signs: Vital Signs Temp 98.5 F 04/10/20 08:00 Pulse 86 04/10/20 08:00 Resp 20 04/10/20 08:00 BP 126/68 04/10/20 08:00 Pulse Ox 93 L 04/10/20 08:00 Intake & Output 04/09/20 04/10/20 04/10/20 18:59 06:59 18:59 Intake Total 180 240 Output Total 1975 1201 450 Balance -1796 -1201 -210 Weight 79.5 kg Intake: Oral 180 240 Output: Urine 1974 1200 450 Stool 1 1 Other: Voiding Method Indwelling Catheter Indwelling Catheter Indwelling Catheter # Bowel Movements 1 - Exam No acute distress, oriented 3. The patient is currently on nasal O2 at 2 L/m. Saturation is 94%. HEENT examination is grossly unremarkable. Mucous membranes are moist. No oral lesions. Neck supple. Full range of motion. No adenopathy thyromegaly or neck vein distention. Cardiovascular examination reveals regular rhythm rate. S1-S2 normal. No S3 or S4. No discernible murmur noted. Heart rate is 84 bpm. Lungs reveal clear breath sounds. Her sounds are equal bilaterally. No adventitious lung sounds including wheezes rhonchi or crackles. Abdomen soft bowel sounds are heard. No masses or tenderness. Extremities are intact. No cyanosis clubbing or edema. The patient's lower extremity lesions are covered in dressings. Skin is without rash or lesion. Neurologic examination is brief but nonfocal. - Labs CBC & Chem 7: 04/08/20 07:18 04/08/20 07:18 Labs: Microbiology - Last 24 Hours (Table) 04/06/20 12:54 Blood Culture - Preliminary Blood No Growth after 72 hours Assessment and Plan Plan: 1. COVID 19 infection without obvious worsening of the patient's chronic respiratory status, patient had a recent admission for COVID 19 related pneumonitis, chest x-ray shows some increase in localized infiltrate in the right upper lobe, and shows chronic interstitial changes. Repeat chest x-ray will be obtained today. No signs of any respiratory decompensation. He is completing a course of Remdesivir 2. Febrile illness secondary to above. Currently afebrile. 3. Recent episode of pseudomonas aeruginosa pneumonia, discharged to [facility] on ciprofloxacin. 4. Chronic nonhealing ulcers and wounds of the lower extremities and sacrum, wound culture of the right foot was positive for MRSA and Pseudomonas. 5. History of atrial fibrillation on Xarelto. 6. History of congestive heart failure. 7. Chronic obstructive pulmonary disease, previous heavy tobacco use. 8. Hypertension. 9. History of myocardial infarction in 1987. 10. Osteoarthritis. 11. History of bilateral breast masses. 12. Hypothyroidism. 13. History of colon polyps. 14. Chronic hypoxemic respiratory failure related to COPD. 15. History of aspiration pneumonia. 16. Chronic back pain. Plan: Currently, the patient's doing much better. Repeat chest x-ray today The patient's on 2 L nasal cannula. He is currently not on any antibiotics at this time. He remains on Symbicort, albuterol inhaler, vitamin C, vitamin D3, zinc, and Decadron. The Decadron can be discontinued after 10 days. Complete the course of Remdesivir Currently, he is not on any additional antibiotics. The patient's respiratory status is stable. Discharge planning underway.
[2020-04-10 10:43] VITALS: BMI 25.1
--- NOTE | 2020-04-10 11:49 | XR ---
EXAMINATION TYPE: XR chest 1V portable DATE OF EXAM: 04/10/2020 COMPARISON: Prior chest x-ray 04/05/2020 HISTORY: Shortness of breath, Covid pneumonia TECHNIQUE: Single frontal view of the chest is obtained. FINDINGS: There may be some improvement in aeration as compared to prior exam. No pneumothorax or pl eural effusion. Cardiac mediastinal silhouette is stable. Aorta is dense. IMPRESSION: Some improvement in aeration
[2020-04-10 12:04] LABS: Glucose,Whole Blood 136 mg/dL (75-99)
--- NOTE | 2020-04-10 16:15 | P.PN ---
Subjective Progress Note Date: 04/10/20 Patient was recently discharged from the hospital with sepsis secondary to pseudomonas aeruginosa pneumonia and MRSA with pseudomonas aeruginosa of chronic right foot wound, chronic stage II sacral pressure ulcer ,acute on chronic hypoxic respiratory failure secondary to COPD exacerbation, had tested previ ously negative for covid, and discharged to subacute rehab. Patient presented to the ER with positive Covid testing from [facility], T-max 103, currently afebrile. [facility] reported patient also fainted while being transferred from the bathroom -denied fall/injury/trauma. Wearing 4 L nasal cannula to maintain O2 sats in the 90s. Chest x-ray reporting pulmonary fibrotic changes, no change, no acute lung disease. EKG recording atrial fibrillation, right bundle branch block, troponin 0.059, 0.067. INR 1.7, d-dimer 1.18.LDH 661,CK 75,CRP 63, ferritin 156.4. Pro-calcitonin 0.09. Potassium 2.9, BUN 32, creatinine 0.94. Hemoglobin 9, admission, currently 7.6. Anticoagulated on Xarelto. WBC on admission 5.2, currently 3.3. UA occasional bacteria, WBC 38, large leukocytes, negative for nitrates, culture pending. Blood sugars controlled in the low 100s to 110s. Received antibiotics and IV fluids. 04/04/2020 maintained on cefepime as per ID. Reports rough night, chills last night, with diaphoresis. Tired this morning T-max 99.8, normal WBC. Hemoglobin 8.6. Creatinine 1.05. Potassium supplemented yesterday, today normal. Maintain O2 sats in the 90s 3 L nasal cannula . 04/05/2020 cefepime discontinued, now on Zosyn as per ID, T-max 102.9. Urine and blood cultures negative. Chest x-ray reporting increasing right upper lobe infiltrate, chronic interstitial lung disease/pulmonary fibrosis or interstitial pneumonitis. Maintaining O2 sats in the 90s on 3 L nasal cannula. Denies chest pain, palpitations or increasing shortness of breath. Denies lightheadedness or dizziness or focal deficits. 04/06/2020 antibiotic adjusted to Zosyn yesterday. Fevers persist with T-max of 102.5. Yesterday's chest x-ray reported worsening right upper lobe. Loose congested nonproductive cough.Labs pending. Continues on Covid regimen. Maintaining O2 sats in the low 90s on 3 L nasal cannula .Denies chest pain, palpitations or increased shortness of breath. 04/07/2020 Despite bacterial pneumonia coverage, continues to be febrile, Remedesivir initiated. Last lethargic today.T-max 103.1. Labs pending. Minimal cough. Oxygen weaned down to 3 L nasal cannula, maintaining O2 sats in the high 90s. Denies chest pain, palpitations or increasing shortness of breath. 04/10/20 Completing Remdesevir today. Continues on Decadron, zinc, vitamin C, vitamin D. No antibiotics at this time as per ID .Afebrile Maintaining O2 sats in the 90s on 2 L nasal cannula. Chest x-ray reporting some improvement in aeration. Reports he had a rough day yesterday and this morning and that he feels weaker. Congested cough with some wheezing. Denies chest pain, palpitations. Denies nausea vomiting or diarrhea. No abdominal pain. Objective - Vital Signs Vital signs: Vital Signs Temp 98.5 F 04/10/20 08:00 Pulse 86 04/10/20 08:00 Resp 20 04/10/20 08:00 BP 126/68 04/10/20 08:00 Pulse Ox 93 L 04/10/20 08:00 Intake & Output 04/09/20 04/10/20 04/10/20 18:59 06:59 18:59 Intake Total 180 480 Output Total 1976 1201 450 Balance -1796 -1201 30 Weight 79.5 kg 79.5 kg Intake: Oral 180 480 Output: Urine 1974 1200 450 Stool 1 1 Other: Voiding Method Indwelling Catheter Indwelling Catheter Indwelling Catheter # Bowel Movements 1 1 - Exam PHYSICAL EXAM: VITAL SIGNS: As above GENERAL: Alert and oriented 3, Sitting up in bed, no acute distress, HEENT: Conjunctivae normal. eyes normal. NECK: No JVD. No thyroid enlargement. CARDIOVASCULAR: S1, S2 regular. No murmur RESPIRATION: Unlabored, Breath sounds diminished in the bases.occasional scattered expiratory wheezing ABDOMEN: Soft, nontender . No guarding. no masses palpable. Positive Bowel sounds heard. LEGS: No edema. no swelling NERVOUS SYSTEM: Cranial N 2-12 grossly normal. Moves all 4 limbs. Diffuse weakness, No focal deficits. Strength and sensation grossly intact.. Skin: Lower extremity dressings clean dry and intact, sacral pressure ulcer dressing clean dry and intact - Labs CBC & Chem 7: 04/08/20 07:18 04/08/20 07:18 Labs: Abnormal Lab Results - Last 24 Hours (Table) 04/10/20 Range/Units 12:01 POC Glucose (mg/dL) 136 H (75-99) mg/dL Microbiology - Last 24 Hours (Table) 04/06/20 12:54 Blood Culture - Preliminary Blood No Growth after 96 hours Assessment and Plan Assessment: Acute Covid pneumonia, T-max 103. Syncope reported at [facility] secondary to the above. Fevers secondary to the Covid pneumonia, persists despite bacterial pneumonia coverage, Remedesivir initiated Possible acute UTI, cultures negative. Recently discharged with Sepsis secondary to pseudomonas aeruginosa pneumonia and MRSA with pseudomonas aeruginosa of chronic right foot wound , chronic stage III sacral pressure ulcer. Reported altered mental status, possible acute metabolic encephalopathy, resolved. Acute hypoxic respiratory failure secondary to the above. Subacute rehab reported desating down to the low 50s to high 80s on 3 L nasal cannula per ER report. Acute on chronic hypoxic respiratory failure secondary to the above, in a patient with severe COPD. Bilateral lung nodules, outpatient PET scan with pulmonary recommended Possible mass at the GE junction, however EGD reported no apparent mass,small paraesophageal hernia, presbyesophagus, mild gastritis. History of Sujit fundoplication CAD, history of MD, CABG Chronic atrial fibrillation, anticoagulated with Xarelto Chronic CHF, EF currently unknown Hypertension Hypothyroidism Degenerative joint disease Chronic back pain History of nicotine dependence Hypokalemic Plan: Continue on current medication regime ,monitoring and symptomatic treatment. Covid regimen. PT/OT. Discharge planning in progress for tomorrow to subacute rehab pending pulmonary, ID final DC recommendations and clearance. The impression and plan of care has been dictated as directed. : I performed a history and examination of this patient, discussed the same with the dictator. I agree with the dictator's note ,documented as a scribe. Any additional findings or plans will be noted.
[2020-04-10 17:06] LABS: Glucose,Whole Blood 211 mg/dL (75-99)
[2020-04-10] MEDS: CALCIUM CARBONATE 500 MG CHEWABLE PO SCH (17:39)
[2020-04-10] MEDS: REMDESIVIR 100 MG in SODIUM CHLORIDE 0.9% 250 ML IVPB SCH (20:37)
[2020-04-10] MEDS: DOCUSATE 100 MG CAP PO SCH (20:37)
[2020-04-10] MEDS: ATORVASTATIN 40 MG TAB PO SCH (20:37)
--- NOTE | 2020-04-10 21:47 | PN ---
PROGRESS NOTE DATE OF SERVICE: 04/10/2020 REASON FOR FOLLOWUP: 1. COVID-19 pneumonia. 2. Stage III sacral pressure ulcer. INTERVAL HISTORY: The patient is currently afebrile. The patient is feeling better. He is breathing more comfortably. The patient did not have any fever for the last 4 days. Denies having any chest pain or cough. No abdominal pain. Denies any worsening pain to the sacral wound area. PHYSICAL EXAMINATION: Blood pressure 123/54 with a pulse of 74, temperature 98.5. He is 98% on 2 L nasal cannula. General description is an elderly male lying in bed in no distress. RESPIRATORY SYSTEM: Unlabored breathing with decreased breath sounds at the base. No wheeze. HEART: S1, S2. Regular rate and rhythm. ABDOMEN: Soft. No tenderness. EXAMINATION OF SACRAL AREA: Stage III pressure. Some slough tissue but no surrounding redness or any drainage. LABS/IMAGING: The patient did have a chest x-ray which showed some improvement in aeration. DIAGNOSTIC IMPRESSION AND PLAN: 1. Patient with acute COVID-19 pneumonia in this patient with overall improvement. He completed his 5-day course of remdesivir today. Dexamethasone may be switched to p.o. in the outpatient setting, to continue along with zinc and vitamin C. 2. Patient did have a stage III sacral pressure ulcer with slough tissue but no evidence of any cellulitis. There was no redness or foul-smelling drainage. Local care with [facility]. His wound care team has been consulted. I had a detailed discussion with the patient's daughter on the phone who requested a call back. Twenty minutes was spent and all care was explained and the reason for not doing any culture from the wound that clinically does not look infected to avoid culturing of the colonized bacteria and inadvertent or unnecessary use of antibiotics. MMODL / IJN: [id number] /
[2020-04-11 06:17] LABS: Glucose,Whole Blood 143 mg/dL (75-99)
[2020-04-11 08:32] VITALS: RESP 20; TEMP 98.8
[2020-04-11 08:32] LABS: Basophils % (A) 1 %; Eosinophils % (A) 0 %; HCT 28.6 % (39.0-53.0); Hypochromasia Marked; Lymphocytes # (A) 0.7 k/uL (1.0-4.8); Lymphocytes % (A) 14 %; MCH 26.6 pg (25.0-35.0); MCHC 31.4 g/dL (31.0-37.0); MCV 84.9 fL (80.0-100.0); Mean Platelet Volume 7.4; Monocytes # (A) 0.4 k/uL (0-1.0); Monocytes % (A) 8 %; Neutrophils # (A) 3.8 k/uL (1.3-7.7); Neutrophils % (A) 75 %; Platelet Count 165 k/uL (150-450); RBC 3.37 m/uL (4.30-5.90)
[2020-04-11] MEDS: ZINC SULFATE 220 MG CAP PO SCH (08:37)
[2020-04-11] MEDS: FUROSEMIDE 40 MG TAB PO SCH (08:37)
[2020-04-11] MEDS: METOPROLOL TARTRATE 12.5 MG TAB PO SCH (08:37)
[2020-04-11] MEDS: DEXAMETHASONE SOD PHOSPHATE 10 MG/ML 1 ML VIAL IV SCH (08:37)
[2020-04-11] MEDS: FAMOTIDINE 20 MG TAB PO SCH (08:37)
[2020-04-11] MEDS: RIVAROXABAN 20 MG TAB PO SCH (08:37)
[2020-04-11] MEDS: GABAPENTIN 300 MG CAP PO SCH (08:37)
[2020-04-11 08:39] LABS: African American GFR (CKD) >90 (>60 ml/min/1.73 sqM); Anion Gap 5 mmol/L; Blood Urea Nitrogen 24 mg/dL (9-20); Calcium 7.5 mg/dL (8.4-10.2); Carbon Dioxide 35 mmol/L (22-30); Chloride 104 mmol/L (98-107); Glucose 163 mg/dL (74-99); Non-African American GFR(CKD) >90 (>60 ml/min/1.73 sqM); Potassium 3.3 mmol/L (3.5-5.1); Sodium 144 mmol/L (137-145)
[2020-04-11] MEDS: COLLAGENASE 250 UNIT/GM OINTMENT 30 GM TUBE TOPICAL SCH (08:45)
[2020-04-11] MEDS: ALBUTEROL HFA INHALER INHALATION SCH ×2 (09:09→12:04)
[2020-04-11] MEDS: SYMBICORT 80-4.5 MCG INHALER INHALATION SCH (09:09)
[2020-04-11] MEDS: TIOTROPIUM 2.5 MCG INHALER INHALATION SCH (09:10)
--- NOTE | 2020-04-11 09:44 | P.PN ---
Subjective Progress Note Date: 04/11/20 80-year-old male well-known to our service. The patient is being seen for a FU on 04/10/2020. The patient has COPD, chronic hypoxic respiratory failure and the patient has COVID 19 pnuemonia. The patient is doing relatively well. The patient was started on remdesivir by infectious diseases and completed the treatment. Clinically he is doing well. He is just on O2 at 2 L by nasal cannula. Saturations are 94%. Blood pressure 116/71, respiratory rate 18, heart rate 84, and temperature is normal. He remains on Decadron, Pepcid, vitamin C, vitamin D3, and zinc. No new laboratory data today. No recent chest x-ray. Antibiotics, have been discontinued by infectious diseases. The patient has no complaints today. I noticed that the patient had a consolidation in his right upper lobe back on his last x-ray of 04/08/2020. Repeat chest x-ray revealed done today. Otherwise, he is losing weight. He has a congested cough. He is afebrile. He is still on Decadron. Is on no antibiotics for now. He is a [facility] resident. On today's evaluation of 04/11/2020, the patient remains on 2 L of oxygen by nasal cannula. He is resting comfortably in bed. A repeat chest x-ray was done yesterday and this was compared to the earlier chest x-ray from the one that was done on 04/07/2020, there is significant improvement in his right upper lobe pulmonary infiltration, there was also improved elevation of the right lower lobe and then the left side. The patient is doing well. He is hemodynamically stable. He remains on Decadron, Pepcid, vitamin C, vitamin D3 and zinc. Rule out from today shows a white cell count of 5 with a hemoglobin of 9.0. Electrolytes are all within normal limits for now. He is on no antibiotics. He is a [facility] resident. He is on Decadron at a dose of 6 mg by mouth daily and this was started on him on 04/06/2020. He is also completing his course of remdesivir Objective - Vital Signs Vital signs: Vital Signs Temp 98.8 F 04/11/20 08:00 Pulse 81 04/11/20 08:00 Resp 20 04/11/20 08:00 BP 121/80 04/11/20 08:00 Pulse Ox 97 04/11/20 08:00 Intake & Output 04/10/20 04/11/20 04/11/20 18:59 06:59 18:59 Intake Total 1260 790 240 Output Total 2350 1200 Balance -1090 -410 240 Weight 79.5 kg 76 kg Intake: Intake, IV Titration 250 Amount Remdesivir 100 mg In 250 Sodium Chloride 0.9% 250 ml @ 250 mls/hr IVPB Q24H [facility] Rx#:[id number] Oral 1260 540 240 Output: Urine 2350 1200 Other: Voiding Method Indwelling Catheter Indwelling Catheter Indwelling Catheter # Bowel Movements 2 - Exam No acute distress, oriented 3. The patient is currently on nasal O2 at 2 L/m. Saturation is 94%. HEENT examination is grossly unremarkable. Mucous membranes are moist. No oral lesions. Neck supple. Full range of motion. No adenopathy thyromegaly or neck vein distention. Cardiovascular examination reveals regular rhythm rate. S1-S2 normal. No S3 or S4. No discernible murmur noted. Heart rate is 84 bpm. Lungs reveal clear breath sounds. Her sounds are equal bilaterally. No adventitious lung sounds including wheezes rhonchi or crackles. Abdomen soft bowel sounds are heard. No masses or tenderness. Extremities are intact. No cyanosis clubbing or edema. The patient's lower extremity lesions are covered in dressings. Skin is without rash or lesion. Neurologic examination is brief but nonfocal. - Labs CBC & Chem 7: 04/11/20 07:43 04/11/20 07:43 Labs: Abnormal Lab Results - Last 24 Hours (Table) 04/10/20 04/10/20 04/11/20 Range/Units 12:01 17:04 06:14 RBC (4.30-5.90) m/uL Hgb (13.0-17.5) gm/dL Hct (39.0-53.0) % RDW (11.5-15.5) % Lymphocytes # (1.0-4.8) k/uL Potassium (3.5-5.1) mmol/L Carbon Dioxide (22-30) mmol/L BUN (9-20) mg/dL Creatinine (0.66-1.25) mg/dL Glucose (74-99) mg/dL POC Glucose (mg/dL) 136 H 211 H 143 H (75-99) mg/dL Calcium (8.4-10.2) mg/dL 04/11/20 04/11/20 Range/Units 07:43 07:43 RBC 3.37 L (4.30-5.90) m/uL Hgb 9.0 L (13.0-17.5) gm/dL Hct 28.6 L (39.0-53.0) % RDW 16.0 H (11.5-15.5) % Lymphocytes # 0.7 L (1.0-4.8) k/uL Potassium 3.3 L (3.5-5.1) mmol/L Carbon Dioxide 35 H (22-30) mmol/L BUN 24 H (9-20) mg/dL Creatinine 0.49 L (0.66-1.25) mg/dL Glucose 163 H (74-99) mg/dL POC Glucose (mg/dL) (75-99) mg/dL Calcium 7.5 L (8.4-10.2) mg/dL Microbiology - Last 24 Hours (Table) 04/06/20 12:54 Blood Culture - Preliminary Blood No Growth after 96 hours Assessment and Plan Plan: 1. COVID 19 infection without obvious worsening of the patient's chronic respiratory status, patient had a recent admission for COVID 19 related pneumonitis, chest x-ray shows some increase in localized infiltrate in the right upper lobe, and shows chronic interstitial changes. Repeat chest x-ray will be obtained today. No signs of any respiratory decompensation. He is completing a course of Remdesivir. He remains on Decadron. The repeat chest x- ray that was done yesterday showed marked improvement in aeration in addition to the infiltration of the right upper lobe. Is currently afebrile. He is still on Decadron. He is on 3 L of oxygen by nasal cannula. No other antibiotic use. 2. Febrile illness secondary to above. Currently afebrile. 3. Recent episode of pseudomonas aeruginosa pneumonia, discharged to [facility] on ciprofloxacin. 4. Chronic nonhealing ulcers and wounds of the lower extremities and sacrum, wound culture of the right foot was positive for MRSA and Pseudomonas. 5. History of atrial fibrillation on Xarelto. 6. History of congestive heart failure. 7. Chronic obstructive pulmonary disease, previous heavy tobacco use. 8. Hypertension. 9. History of myocardial infarction in 1987. 10. Osteoarthritis. 11. History of bilateral breast masses. 12. Hypothyroidism. 13. History of colon polyps. 14. Chronic hypoxemic respiratory failure related to COPD. on home oxygen at 2 L. 15. History of aspiration pneumonia. 16. Chronic back pain. Plan: Currently, the patient's doing much better. Repeat chest x-ray from yesterday showed improvement in the pulmonary infiltrates The patient's on 2 L nasal cannula. He is currently not on any antibiotics at this time. He remains on Symbicort, albuterol inhaler, vitamin C, vitamin D3, zinc, and Decadron. The Decadron can be discontinued after 10 days. Complete the course of Remdesivir Currently, he is not on any additional antibiotics. The patient's respiratory status is stable. Discharge planning underway.
[2020-04-11] MEDS ORDERED: Magnesium Replacement Protocol 1 EACH MISC MISCELLANE PRN (10:29)
--- NOTE | 2020-04-11 10:43 | P.DS ---
Providers Date of admission: 04/02/20 20:11 Expected date of discharge: 04/11/20 Attending physician: Adams Abraham Consults: 04/02/20 20:19 Consult Physician Urgent Consulting Provider: Lorena Funes Consult Reason/Comments: acute covid infection, hypoxic resp failure Do you want consulting provider notified?: Yes 04/03/20 12:31 Consult Physician Routine Consulting Provider: Niko Fontenot Consult Reason/Comments: fever, COVID Do you want consulting provider notified?: Yes Primary care physician: Adams Abraham [facility] Course: Final Diagnoses: Acute Covid pneumonia, T-max 103. Syncope reported at [facility] secondary to the above. Fevers secondary to the Covid pneumonia, persists despite bacterial pneumonia coverage, Remedesivir initiated Possible acute UTI, cultures negative. Recently discharged with Sepsis secondary to pseudomonas aeruginosa pneumonia and MRSA with pseudomonas aeruginosa of chronic right foot wound , chronic stage III sacral pressure ulcer. Reported altered mental status, possible acute metabolic encephalopathy, resolved. Acute hypoxic respiratory failure secondary to the above. Subacute rehab reported desating down to the low 50s to high 80s on 3 L nasal cannula per ER report. Acute on chronic hypoxic respiratory failure secondary to the above, in a patient with severe COPD. Bilateral lung nodules, outpatient PET scan with pulmonary recommended Possible mass at the GE junction, however EGD reported no apparent mass,small paraesophageal hernia, presbyesophagus, mild gastritis. History of Sujit fundoplication CAD, history of LA, CABG Chronic atrial fibrillation, anticoagulated with Xarelto Chronic CHF, EF currently unknown Hypertension Hypothyroidism Degenerative joint disease Chronic back pain History of nicotine dependence Hypokalemic Hospital course:Patient was recently discharged from the hospital with sepsis secondary to pseudomonas aeruginosa pneumonia and MRSA with pseudomonas aeruginosa of chronic right foot wound, chronic stage II sacral pressure ulcer ,acute on chronic hypoxic respiratory failure secondary to COPD exacerbation, had tested previously negative for covid, and discharged to subacute rehab. Patient presented to the ER with positive Covid testing from [facility], T-max 103, currently afebrile. [facility] reported patient also fainted while being transferred from the bathroom -denied fall/injury/trauma. Wearing 4 L nasal cannula to maintain O2 sats in the 90s. Chest x-ray reporting pulmonary fibrotic changes, no change, no acute lung disease. EKG recording atrial fibrillation, right bundle branch block, troponin 0.059, 0.067. INR 1.7, d- dimer 1.18.LDH 661,CK 75,CRP 63, ferritin 156.4. Pro-calcitonin 0.09. Potassium 2.9, BUN 32, creatinine 0.94. Hemoglobin 9, admission, currently 7.6. Anticoa gulated on Xarelto. WBC on admission 5.2, currently 3.3. UA occasional bacteria, WBC 38, large leukocytes, negative for nitrates, culture pending. Blood sugars controlled in the low 100s to 110s. Received antibiotics and IV fluids. 04/04/2020 maintained on cefepime as per ID. Reports rough night, chills last night, with diaphoresis. Tired this morning T-max 99.8, normal WBC. Hemoglobin 8.6. Creatinine 1.05. Potassium supplemented yesterday, today normal. Maintain O2 sats in the 90s 3 L nasal cannula . 04/05/2020 cefepime discontinued, now on Zosyn as per ID, T-max 102.9. Urine and blood cultures negative. Chest x-ray reporting increasing right upper lobe infiltrate, chronic interstitial lung disease/pulmonary fibrosis or interstitial pneumonitis. Maintaining O2 sats in the 90s on 3 L nasal cannula. Denies chest pain, palpitations or increasing shortness of breath. Denies lightheadedness or dizziness or focal deficits. 04/06/2020 antibiotic adjusted to Zosyn yesterday. Fevers persist with T-max of 102.5. Yesterday's chest x-ray reported worsening right upper lobe. Loose congested nonproductive cough.Labs pending. Continues on Covid regimen. Maintaining O2 sats in the low 90s on 3 L nasal cannula .Denies chest pain, palpitations or increased shortness of breath. 04/07/2020 Despite bacterial pneumonia coverage, continues to be febrile, Remedesivir initiated. Last lethargic today.T-max 103.1. Labs pending. Minimal cough. Oxygen weaned down to 3 L nasal cannula, maintaining O2 sats in the high 90s. Denies chest pain, palpitations or increasing shortness of breath. 04/10/20 Completing Remdesevir today. Continues on Decadron, zinc, vitamin C, vitamin D. No antibiotics at this time as per ID .Afebrile Maintaining O2 sats in the 90s on 2 L nasal cannula. Chest x-ray reporting some improvement in aeration. Reports he had a rough day yesterday and this morning and that he feels weaker. Congested cough with some wheezing. Denies chest pain, palpitations. Denies nausea vomiting or diarrhea. No abdominal pain. Significant clinical improvement. Patient will be discharged today to subacute rehab, in a stable condition with guarded prognosis, pending final DC recommendations/clearance from pulmonary/ID/Wound Care team. The impression and plan of care has been dictated as directed. : I performed a history and examination of this patient, discussed the same with the dictator. I agree with the dictator's note ,documented as a scribe. Any additional findings or plans will be noted. Patient Condition at Discharge: Stable Plan - Discharge Summary Discharge Rx Participant: Yes New Discharge Prescriptions: New Ibuprofen [Motrin] 400 mg PO Q6HR PRN tab PRN Reason: Mild Pain Or Fever > 100.5 Zinc Sulfate [Orazinc] 220 mg PO DAILY #1 capsule Collagenase [Santyl] 1 applic TOPICAL DAILY applic Docusate [Colace] 100 mg PO HS cap dexAMETHasone [Hexadrol] See Taper PO DAILY 4 Days tablet Continue Rivaroxaban [Xarelto] 20 mg PO DAILY@0800 Furosemide 40 mg PO DAILY@0800 Fluticasone/Salmeterol [Advair 250-50 Diskus] 1 puff INHALATION RT- BID@0800,2100 Tiotropium 18 Mcg/Puff [Spiriva] 1 cap INHALATION RT-DAILY Atorvastatin [Lipitor] 40 mg PO HS@2100 Multivitamin [Men's Multi-Vitamin] 1 tab PO DAILY@1700 Albuterol Sulfate [Ventolin HFA] 2 puff INHALATION RT-QID PRN PRN Reason: Shortness Of Breath Ipratropium-Albuterol Nebulize [Duoneb 0.5 mg-3 mg/3 ml Soln] 3 ml INHALATION RT-QID Acetaminophen Tab [Tylenol] 650 mg PO Q6HR PRN tab PRN Reason: Mild Pain Or Fever > 100.5 Cyanocobalamin (Vitamin B-12) [Vitamin B-12] 1,000 mcg PO DAILY@1700 Cholecalciferol [Vitamin D3 (25 Mcg = 1000 Iu)] 1,000 unit PO DAILY@1700 Ascorbic Acid [Vitamin C] 1,000 mg PO DAILY@1700 Calcium Carbonate [Calcium] 600 mg PO DAILY@1700 bisacodyL [Dulcolax] 10 mg RECTAL DAILY PRN PRN Reason: Constipation Na Phos,M-B/Na Phos,Di-Ba [Fleet Adult] 133 ml RECTAL DAILY PRN PRN Reason: Constipation Famotidine [Pepcid] 20 mg PO BID@0800,2100 Metoprolol Tartrate [Lopressor] 12.5 mg PO BID@0800,1700 Magnesium Hydroxide [Milk of Magnesia] 2,400 mg PO DAILY PRN PRN Reason: Constipation oxyCODONE HCL/ACETAMINOPHEN [Percocet 10-325 mg] 1 tab PO TID PRN #9 tab PRN Reason: Pain Changed Gabapentin 600 mg PO BID@0800,1700 #6 tab Discontinued Doxycycline Hyclate [Doryx] 100 mg PO BID@0800,1700 Ciprofloxacin HCl [Cipro] 750 mg PO BID@0800,2100 Discharge Medication List Rivaroxaban [Xarelto] 20 mg PO DAILY@0800 08/06/13 [History] Furosemide 40 mg PO DAILY@0800 08/09/13 [History] Fluticasone/Salmeterol [Advair 250-50 Diskus] 1 puff INHALATION RT-BID@0800,209908/18/14 [History] Tiotropium 18 Mcg/Puff [Spiriva] 1 cap INHALATION RT-DAILY 08/18/14 [History] Atorvastatin [Lipitor] 40 mg PO HS@209901/20/18 [History] Multivitamin [Men's Multi-Vitamin] 1 tab PO DAILY@169901/20/18 [History] Albuterol Sulfate [Ventolin HFA] 2 puff INHALATION RT-QID PRN 11/22/19 [History] Ipratropium-Albuterol Nebulize [Duoneb 0.5 mg-3 mg/3 ml Soln] 3 ml INHALATION RT-QID 11/22/19 [History] Acetaminophen Tab [Tylenol] 650 mg PO Q6HR PRN tab 01/11/20 [Rx] Ascorbic Acid [Vitamin C] 1,000 mg PO DAILY@169903/19/20 [History] Calcium Carbonate [Calcium] 600 mg PO DAILY@169903/19/20 [History] Cholecalciferol [Vitamin D3 (25 Mcg = 1000 Iu)] 1,000 unit PO DAILY@1700 03/19/20 [History] Cyanocobalamin (Vitamin B-12) [Vitamin B-12] 1,000 mcg PO DAILY@1700 03/19/20 [History] Famotidine [Pepcid] 20 mg PO BID@0800,2100 04/02/20 [History] Magnesium Hydroxide [Milk of Magnesia] 2,400 mg PO DAILY PRN 04/02/20 [History] Metoprolol Tartrate [Lopressor] 12.5 mg PO BID@0800,1700 04/02/20 [History] Na Phos,M-B/Na Phos,Di-Ba [Fleet Adult] 133 ml RECTAL DAILY PRN 04/02/20 [History] bisacodyL [Dulcolax] 10 mg RECTAL DAILY PRN 04/02/20 [History] Collagenase [Santyl] 1 applic TOPICAL DAILY applic 04/05/20 [Rx] Gabapentin 600 mg PO BID@0800,1700 #6 tab 04/05/20 [Rx] Ibuprofen [Motrin] 400 mg PO Q6HR PRN tab 04/05/20 [Rx] Zinc Sulfate [Orazinc] 220 mg PO DAILY #1 capsule 04/05/20 [Rx] oxyCODONE HCL/ACETAMINOPHEN [Percocet 10-325 mg] 1 tab PO TID PRN #9 tab 0 04/05/20 [Rx] Docusate [Colace] 100 mg PO HS cap 04/11/20 [Rx] dexAMETHasone [Hexadrol] See Taper PO DAILY 4 Days tablet 04/11/20 [Rx] Follow up Appointment(s)/Referral(s): Adams Abraham DO [Primary Care Provider] - 1-2 days Activity/Diet/Wound Care/Special Instructions: Pending final DC recommendations and clearance from ID and pulmonary 3 L nasal cannula O2 ECF: CBC, BMP in 3 days
--- NOTE | 2020-04-11 11:06 | P.CONS ---
History of Present Illness - Reason for Consult Consult date: 04/11/20 wound care - History of Present Illness this is an 80-year-old patient being seen on 3 for nonhealing ulceration to the sacrum, right malleolus, right medial calcaneus. Patient states that the ulcerations have been there for many months. He was scheduled to be seen in the wound care center on Friday the however he was inpatient at the time and was not able to make his appointment. Patient is unsure of what was being applied to the sites prior to hospitalization. patient's past medical history significant for atrophic fibrillation, congestive heart failure, COPD, hypertension, myocardial infarction, chronic back pain, patient is a former smoker. Denies diabetes. Review Of Systems: Constitutional: No fever, no chills, no night sweats. No weight change. No weakness, fatigue or lethargy. No daytime sleepiness. Integumentary:reports wounds, no lesions. No rash or pruritus. No unusual bruising. No change in hair or nails. Physical exam: General Appearance: Alert, cooperative, no distress, appears stated age. Skin: full thickness stage II pressure ulcer to the sacrum with fat layer exposed, no tunneling or undermining noted, measuring approximately 4 x 6 x 0.2 cm granulation seen throughout the wound bed with moderate Slough. Ecchymosis is noted to the wound along with scarring. Right malleolus is a stage II pressure ulcer with fatty layer exposure eschar is noted within the wound bed with no granulation seen. Wound edges are attached to the wound base no tunneling or undermining noted,left medial calcaneus is a stage I pressure ulcer, ecchymosis seen throughout the ulceration. Skin is intact.all other Skin color, texture, tugor decreased, no rashes or lesions. Neurologic: Alert oriented x3 Past Medical History Past Medical History: Atrial Fibrillation, Heart Failure, COPD, Hypertension, Myocardial Infarction ([place]), Musculoskeletal Disorder, Osteoarthritis ([place]), Pneumonia, Thyroid Disorder Additional Past Medical History / Comment(s): left breast mass HX OF COLON POLYPS. HX RIGHT BREAST MASS. O2 AT 2L NC @HS AND PRN. Hx Aspiration Pneumonia R/T "FLAPPER." HX OF THYROID PROBLEM - NO TX NOW. CHRONIC BACK PAIN, RUPESH LEG NT. RT FOOT/ANKLE EDEMA, WEARS TEDS. RUPESH CTS Last Myocardial Infarction Date:: 1987 History of Any Multi-Drug Resistant Organisms: MRSA Year Discovered:: MRSA 03/19/20 MDRO Source:: Foot Past Surgical History: Back Surgery, Coronary Bypass/CABG, Joint Replacement, Orthopedic Surgery Additional Past Surgical History / Comment(s): left carpel tunnel, CARPAL TUNNEL RIGHT x 2. CABG 1987 X2. RUPESH SCOPES KNEES. Rupesh Hip Replacement, Nicholas Fundoplicaton. Rt Shoulder Rotator Cuff. BACK X2. HX OF EPIDURALS FOR PAIN. Past Anesthesia/Blood Transfusion Reactions: No Reported Reaction Past Psychological History: No Psychological Hx Reported Smoking Status: Former smoker Past Alcohol Use History: None Reported Past Drug Use History: None Reported - Past Family History Daughter(s) Family Medical History: Cancer Father History Unknown: Yes Mother Family Medical History: No Reported History Medications and Allergies Home Medications Medication Instructions Recorded Confirmed Type Rivaroxaban [Xarelto] 20 mg PO DAILY@0800 08/06/13 04/02/20 History Furosemide 40 mg PO DAILY@0800 08/09/13 04/02/20 History Fluticasone/Salmeterol [Advair 1 puff INHALATION RT-BID@0800,2100 08/18/14 04/02/20 History 250-50 Diskus] Tiotropium 18 Mcg/Puff [Spiriva] 1 cap INHALATION RT-DAILY 08/18/14 04/02/20 History Atorvastatin [Lipitor] 40 mg PO HS@2100 01/20/18 04/02/20 History Multivitamin [Men's Multi-Vitamin] 1 tab PO DAILY@1700 01/20/18 04/02/20 History Albuterol Sulfate [Ventolin HFA] 2 puff INHALATION RT-QID PRN 11/22/19 04/02/20 History Ipratropium-Albuterol Nebulize 3 ml INHALATION RT-QID 11/22/19 04/02/20 History [Duoneb 0.5 mg-3 mg/3 ml Soln] Acetaminophen Tab [Tylenol] 650 mg PO Q6HR PRN tab 01/11/20 04/02/20 Rx Ascorbic Acid [Vitamin C] 1,000 mg PO DAILY@1700 03/19/20 04/02/20 History Calcium Carbonate [Calcium] 600 mg PO DAILY@1700 03/19/20 04/02/20 History Cholecalciferol [Vitamin D3 (25 1,000 unit PO DAILY@1700 03/19/20 04/02/20 History Mcg = 1000 Iu)] Cyanocobalamin (Vitamin B-12) 1,000 mcg PO DAILY@1700 03/19/20 04/02/20 History [Vitamin B-12] Famotidine [Pepcid] 20 mg PO BID@0800,2100 04/02/20 04/02/20 History Magnesium Hydroxide [Milk of 2,400 mg PO DAILY PRN 04/02/20 04/02/20 History Magnesia] Metoprolol Tartrate [Lopressor] 12.5 mg PO BID@0800,1700 04/02/20 04/02/20 History Na Phos,M-B/Na Phos,Di-Ba [Fleet 133 ml RECTAL DAILY PRN 04/02/20 04/02/20 History Adult] bisacodyL [Dulcolax] 10 mg RECTAL DAILY PRN 04/02/20 04/02/20 History Collagenase [Santyl] 1 applic TOPICAL DAILY applic 04/05/20 Rx Gabapentin 600 mg PO BID@0800,1700 #6 tab 04/05/20 Rx Ibuprofen [Motrin] 400 mg PO Q6HR PRN tab 04/05/20 Rx Zinc Sulfate [Orazinc] 220 mg PO DAILY #1 capsule 04/05/20 Rx oxyCODONE HCL/ACETAMINOPHEN 1 tab PO TID PRN #9 tab 04/05/20 Rx [Percocet 10-325 mg] Docusate [Colace] 100 mg PO HS cap 04/11/20 Rx dexAMETHasone [Hexadrol] See Taper PO DAILY 4 Days tablet 04/11/20 Rx Allergies Allergy/AdvReac Type Severity Reaction Status Date / Time No Known Allergies Allergy Verified 04/02/20 19:22 Physical Exam Vitals: Vital Signs Temp Pulse Resp BP Pulse Ox 04/11/20 08:00 98.8 F 81 20 121/80 97 04/11/20 04:00 61 18 124/60 97 04/11/20 01:18 63 18 04/11/20 00:00 63 18 147/60 98 04/10/20 20:00 98.6 F 65 18 137/64 97 04/10/20 16:00 98.5 F 74 18 123/54 98 04/10/20 14:00 20 Intake and Output 04/10/20 04/11/20 04/11/20 22:59 06:59 14:59 Intake Total 780 790 240 Output Total 1900 1200 Balance -1120 -410 240 Intake: Intake, IV Titration 250 Amount Remdesivir 100 mg In 250 Sodium Chloride 0.9% 250 ml @ 250 mls/hr IVPB Q24H [facility] Rx#:[id number] Oral 780 540 240 Output: Urine 1900 1200 Other: Voiding Method Indwelling Catheter Indwelling Catheter Indwelling Catheter # Bowel Movements 2 Weight 76 kg Results CBC & Chem 7: 04/11/20 07:43 04/11/20 07:43 Labs: Abnormal Lab Results - Last 24 Hours (Table) 04/10/20 04/10/20 04/11/20 Range/Units 12:01 17:04 06:14 RBC (4.30-5.90) m/uL Hgb (13.0-17.5) gm/dL Hct (39.0-53.0) % RDW (11.5-15.5) % Lymphocytes # (1.0-4.8) k/uL Potassium (3.5-5.1) mmol/L Carbon Dioxide (22-30) mmol/L BUN (9-20) mg/dL Creatinine (0.66-1.25) mg/dL Glucose (74-99) mg/dL POC Glucose (mg/dL) 136 H 211 H 143 H (75-99) mg/dL Calcium (8.4-10.2) mg/dL Magnesium (1.6-2.3) mg/dL 04/11/20 04/11/20 04/11/20 Range/Units 07:43 07:43 07:43 RBC 3.37 L (4.30-5.90) m/uL Hgb 9.0 L (13.0-17.5) gm/dL Hct 28.6 L (39.0-53.0) % RDW 16.0 H (11.5-15.5) % Lymphocytes # 0.7 L (1.0-4.8) k/uL Potassium 3.3 L (3.5-5.1) mmol/L Carbon Dioxide 35 H (22-30) mmol/L BUN 24 H (9-20) mg/dL Creatinine 0.49 L (0.66-1.25) mg/dL Glucose 163 H (74-99) mg/dL POC Glucose (mg/dL) (75-99) mg/dL Calcium 7.5 L (8.4-10.2) mg/dL Magnesium 1.2 L (1.6-2.3) mg/dL Microbiology - Last 24 Hours (Table) 04/06/20 12:54 Blood Culture - Preliminary Blood No Growth after 96 hours Assessment and Plan (1) Stage II pressure ulcer of sacral region Current Visit: Yes Status: Acute Code(s): L89.152 - PRESSURE ULCER OF SACRAL REGION, STAGE 2 SNOMED Code(s): 101215216 (2) Stage I pressure ulcer of left heel Current Visit: Yes Status: Acute Code(s): L89.621 - PRESSURE ULCER OF LEFT HEEL, STAGE 1 SNOMED Code(s): 170318030 (3) Pressure ulcer of right ankle, stage 2 Current Visit: No Status: Acute Code(s): L89.512 - PRESSURE ULCER OF RIGHT ANKLE, STAGE 2 SNOMED Code(s): 839162771 Plan: sacral ulceration: Apply honey alginate, saline moistened gauze, sacrum border foam. Change Friday. Right malleolus ulceration apply honey alginate, saline moistened gauze, dry gauze, and rolled gauze secured with paper tape.. Left medial calcaneus ulceration: Apply zinc barrier cream foam rolled gauze secured with paper tape. Utilize a mattress overlay. reposition every 2 hours. Utilize foam heel protectors. Patient may call for a appointment in the wound care center outpatient upon discharge. thank you for the consultation any questions contact the wound care center DNP note has been reviewed and discussed with Dr. Yin and the impression and plan of care has been directed as dictated.
[2020-04-11 11:35] VITALS: BP 117/50; PULSE 78
--- NOTE | 2020-04-11 12:41 | PN ---
PROGRESS NOTE DATE OF SERVICE: 04/11/2020 REASON FOR FOLLOWUP: 1. Acute COVID-19 pneumonia. 2. Sacral pressure ulcer. INTERVAL HISTORY: The patient is currently afebrile. Patient is breathing comfortably. The patient denies having any chest pain. Minimal cough. No abdominal pain. Did have mild diarrhea per the history the patient. No worsening pain to the sacral wound area. PHYSICAL EXAMINATION: Blood pressure 121/80 with a pulse of 81, temperature 98.8. He is 97% on 2 L nasal cannula. General description is an elderly male lying in bed in no distress. RESPIRATORY SYSTEM: Unlabored breathing, clear to auscultation. HEART: S1, S2. Regular rate and rhythm. ABDOMEN: Soft, no tenderness. Sacral wound did show some slough tissue, no surrounding redness or foul smelling drainage. LABS: Hemoglobin is 9, white count 5.0. BUN of 24, creatinine 0.49. DIAGNOSTIC IMPRESSION AND PLAN: 1. Patient admitted to the hospital with acute COVID-19 pneumonia that has been adequately treated. Patient completed his remdesivir therapy. On discharge recommend vitamin C, zinc and four days of dexamethasone. 2. Sacral wound local care with Santyl followed by dressing, need to keep the area off the pressure has been this wound. This has been explained in detail to the patient's daughter on the phone yesterday. MMODL / IJN: [id number] /
[2020-04-11] MEDS ORDERED: CHOLECALCIFEROL 25 MCG (1000 IU) TABLET PO SCH (17:00)
--- NOTE | 2020-04-14 10:52 | CDI ---
Documentation Clarification Form Date: 04/14/2020 10:50:00 AM From: Lucero Rei Phone: Opal Arnold, Mortgage Loan Coordinator, [place] Admit Date: 04/02/2020 08:11:00 PM Patient Name: Jean Contreras Visit Number: [id number] Discharge Date: 04/11/2020 02:47:00 PM ATTENTION: The Clinical Documentation Specialists (CDI) and [facility] Coding Staff appreciate your assistance in clarifying documentation. Please respond to the clarification below the line at the bottom and electronically sign. The CDI & [facility] Coding staff will review the response and follow-up if needed. Please note: Queries are made part of the Legal Health Record. If you have any questions, please contact the author of this message via ITS. Dr. Adams Abraham NSTEMI is documented in the: ED Notes Patient History/Risk Factors: COVID PNA, A/C Resp Failure, COPD, Pressure ulcers, HTN, CHF, CAD, S/P CABG Clinical Indicators: Elevated troponin Troponin: 0.040, 0.059, 0.067 EKG Results: AFIB with RVR, Right BBB Treatment: Metoprolol 12.5 mg PO Consult: Po In order to capture the severity of condition and necessary documentation specificity, please clarify: Type of Infarction: Type II ME NSTEMI Elevated troponin Unable to determine Other Condition, please specify NSTEMI MTDD
== END 2020-04-11 14:47 | DRG 177 ==
LOC: EC 17:18 → 3SCARD 20:11
PROVIDERS: ADMIT Family Medicine; ATTEND Family Medicine
PROC: 05H933Z Insertion of Infusion Device into Right Brachial Vein, Percutaneous Approach (ICD-10-PCS; principal; 2020-04-05 14:05)
PROC: XW033E5 Introduction of Remdesivir Anti-infective into Peripheral Vein, Percutaneous Approach, New Technology Group 5 (ICD-10-PCS; 2020-04-06)
DX: U07.1 COVID-19 (principal); L89.153 Pressure ulcer of sacral region, stage 3; J96.21 Acute and chronic respiratory failure with hypoxia; J12.82 Pneumonia due to coronavirus disease 2019; G93.41 Metabolic encephalopathy; J15.9 Unspecified bacterial pneumonia; I21.4 Non-ST elevation (NSTEMI) myocardial infarction; I48.20 Chronic atrial fibrillation, unspecified; L03.116 Cellulitis of left lower limb; J44.0 Chronic obstructive pulmonary disease with (acute) lower respiratory infection; N39.0 Urinary tract infection, site not specified; J84.89 Other specified interstitial pulmonary diseases; L89.619 Pressure ulcer of right heel, unspecified stage; L89.512 Pressure ulcer of right ankle, stage 2; L89.621 Pressure ulcer of left heel, stage 1; I11.0 Hypertensive heart disease with heart failure; I50.9 Heart failure, unspecified; G89.29 Other chronic pain; M54.5 Low back pain; M19.90 Unspecified osteoarthritis, unspecified site; I45.10 Unspecified right bundle-branch block; E03.9 Hypothyroidism, unspecified; E87.6 Hypokalemia; D72.810 Lymphocytopenia; D64.9 Anemia, unspecified; I25.10 Atherosclerotic heart disease of native coronary artery without angina pectoris; I25.2 Old myocardial infarction; Z71.3 Dietary counseling and surveillance; Z79.01 Long term (current) use of anticoagulants; Z79.899 Other long term (current) drug therapy; Z87.01 Personal history of pneumonia (recurrent); Z86.010 Personal history of colon polyps; Z86.14 Personal history of Methicillin resistant Staphylococcus aureus infection; Z95.1 Presence of aortocoronary bypass graft; Z96.643 Presence of artificial hip joint, bilateral; Z98.890 Other specified postprocedural states; Z87.891 Personal history of nicotine dependence; Z80.9 Family history of malignant neoplasm, unspecified
CPT/HCPCS: 36410; 36415; 71045; 76937; 80048; 80053; 81001; 82550; 82728; 83605; 83615; 83735; 84132; 84145; 84484; 85025; 85027; 85379; 85610; 85730; 86140; 87040; 87086; 87449; 87502; 87635; 93005; 94640; 94760; 96361; 96374; 96375; 99285

== ENCOUNTER 2020-04-24 16:34 | Inpatient (IN) | payer MEDICARE ==
[2020-04-24] MEDS ORDERED: SODIUM CHLORIDE 0.9% 1,000 ML IV STA (16:59)
[2020-04-24] MEDS ORDERED: ACETAMINOPHEN TAB 500 MG TAB PO STA (16:59)
[2020-04-24 17:22] LABS: Anisocytosis Slight; Basophils # (A) 0.1 k/uL (0-0.2); Basophils % (A) 1 %; Eosinophils # (A) 0.1 k/uL (0-0.7); Eosinophils % (A) 2 %; HCT 24.6 % (39.0-53.0); HGB 7.7 gm/dL (13.0-17.5); Hypochromasia Moderate; Lymphocytes # (A) 0.8 k/uL (1.0-4.8); Lymphocytes % (A) 10 %; MCH 26.6 pg (25.0-35.0); MCHC 31.4 g/dL (31.0-37.0); MCV 84.6 fL (80.0-100.0); Mean Platelet Volume 7.3; Monocytes # (A) 0.7 k/uL (0-1.0); Monocytes % (A) 8 %; Neutrophils # (A) 6.6 k/uL (1.3-7.7); Neutrophils % (A) 78 %; Platelet Count 100 k/uL (150-450); RDW 18.1 % (11.5-15.5); WBC 8.5 k/uL (3.8-10.6)
[2020-04-24 17:31] LABS: Glucose,Whole Blood 125 mg/dL (75-99)
[2020-04-24 17:33] LABS: Appearance,Urine Cloudy (Clear); Bacteria,Urine Rare /hpf; Bilirubin,Urine Negative (Negative); Blood,Urine Small (Negative); Budding Yeast,Urine Many /hpf; Color,Urine Yellow; Glucose,Urine (UA) Negative (Negative); Ketones,Urine Negative (Negative); Leukocyte Esterase,Urine Large (Negative); Nitrite,Urine Negative (Negative); Protein,Urine 1+ (Negative); RBC,Urine 30 /hpf (0-5); Specific Gravity,Urine 1.015 (1.001-1.035); Urobilinogen,Urine <2.0 mg/dL (<2.0); WBC,Urine 30 /hpf (0-5)
[2020-04-24 17:35] LABS: INR 1.8 (<1.2)
[2020-04-24 17:36] LABS: ALT 24 U/L (4-49); AST 32 U/L (17-59); African American GFR (CKD) >90 (>60 ml/min/1.73 sqM); Albumin 2.5 g/dL (3.5-5.0); Alkaline Phosphatase 97 U/L (38-126); Anion Gap 5 mmol/L; Blood Urea Nitrogen 34 mg/dL (9-20); Calcium 7.9 mg/dL (8.4-10.2); Carbon Dioxide 33 mmol/L (22-30); Chloride 103 mmol/L (98-107); Creatine Kinase <20 U/L (55-170); Glucose 124 mg/dL (74-99); Non-African American GFR(CKD) 88 (>60 ml/min/1.73 sqM); Partial Thromboplastin Time 37.5 sec (22.0-30.0); Potassium 3.9 mmol/L (3.5-5.1); Prothrombin Time 17.7 sec (9.0-12.0); Sodium 141 mmol/L (137-145); Total Bilirubin 0.8 mg/dL (0.2-1.3); Total Protein 5.4 g/dL (6.3-8.2)
--- NOTE | 2020-04-24 17:54 | ED ---
SOB HPI - General Chief Complaint: Shortness of Breath Stated Complaint: COVID Time Seen by Provider: 04/24/20 16:34 Source: patient Mode of arrival: ambulatory Limitations: no limitations - History of Present Illness Initial Comments: Patient is an 80-year-old male with past medical history of A. fib on anticoagulation, COPD, coccyx lower extremity chronic wound to the emergency department from [facility]. Patient transferred for fever and altered mental status. Patient was seen in the emergency department on April 02 for similar complaints. Patient was tested and found positive for Covid. He is currently wearing oxygen at his facility. Fevers have been improved however according to staff has now returned. The patient cannot provide much medical history. Review of the patient's chart demonstrates that he had sepsis secondary to pseudomonas aeruginosa pneumonia and MRSA with pseudomonas left foot infection. Patient was discharged on the . He returns today with 102 fever. Coarse breath sounds are heard bilaterally. He saturates 85% on room air. Patient denies any chest pain or abdominal pain. Evaluation of the patient's skin demonstrates a healing left heel wound with a stage III sacral wound. Patient admits to good appetite. No diarrhea or vomiting. The remainder of HPI is limited because the patient's current medical condition - Related Data Home Medications Medication Instructions Recorded Confirmed Rivaroxaban [Xarelto] 20 mg PO DAILY@0900 08/06/13 04/24/20 Furosemide 40 mg PO DAILY@0900 08/09/13 04/24/20 Fluticasone/Salmeterol [Advair 1 puff INHALATION RT-BID@0900,2100 08/18/14 04/24/20 250-50 Diskus] Tiotropium 18 Mcg/Puff [Spiriva] 1 cap INHALATION RT-DAILY 08/18/14 04/24/20 Albuterol Sulfate [Ventolin HFA] 2 puff INHALATION RT-Q6H PRN 11/22/19 04/24/20 Ipratropium-Albuterol Nebulize 3 ml INHALATION RT-QID 11/22/19 04/24/20 [Duoneb 0.5 mg-3 mg/3 ml Soln] Famotidine [Pepcid] 20 mg PO BID@0900,1800 04/02/20 04/24/20 Metoprolol Tartrate [Lopressor] 12.5 mg PO BID@0900,1800 04/02/20 04/24/20 Collagenase [Santyl] 1 applic TOPICAL Q12H 04/24/20 04/24/20 Docusate [Colace] 100 mg PO HS@2100 04/24/20 04/24/20 Gabapentin 600 mg PO BID@0900,1800 04/24/20 04/24/20 Lactose-Reduced Food [Ensure Plus] 1 can PO BID@1000,1500 04/24/20 04/24/20 Methyl Salicylate/Menthol 1 patch TOPICAL DAILY@0600 04/24/20 04/24/20 [Salonpas Patch] Moxifloxacin HCl [Avelox] 400 mg PO DAILY@0900 04/24/20 04/24/20 Prostat Awc 30 ml PO BID@0900,2100 04/24/20 04/24/20 oxyCODONE HCL/ACETAMINOPHEN 1 tab PO Q6H PRN 04/24/20 04/24/20 [Percocet 10-325 mg] Previous Rx's Medication Instructions Recorded Acetaminophen Tab [Tylenol] 650 mg PO Q6HR PRN tab 01/11/20 Allergies Allergy/AdvReac Type Severity Reaction Status Date / Time No Known Allergies Allergy Verified 04/24/20 16:44 Review of Systems ROS Statement: Those systems with pertinent positive or pertinent negative responses have been documented in the HPI. ROS Other: All systems not noted in ROS Statement are negative. Past Medical History Past Medical History: Atrial Fibrillation, Heart Failure, COPD, Hypertension, Myocardial Infarction (NH), Musculoskeletal Disorder, Osteoarthritis (OA), Pneumonia, Thyroid Disorder Additional Past Medical History / Comment(s): left breast mass HX OF COLON POLYPS. HX RIGHT BREAST MASS. O2 AT 2L NC @HS AND PRN. Hx Aspiration Pneumoni a R/T "FLAPPER." HX OF THYROID PROBLEM - NO TX NOW. CHRONIC BACK PAIN, JAIME LEG NT. RT FOOT/ANKLE EDEMA, WEARS TEDS. JAIME CTS Last Myocardial Infarction Date:: 1987 History of Any Multi-Drug Resistant Organisms: MRSA Date of last positivie culture/infection: MRSA 03/19/20 MDRO Source:: Foot Past Surgical History: Back Surgery, Coronary Bypass/CABG, Joint Replacement, Orthopedic Surgery Additional Past Surgical History / Comment(s): left carpel tunnel, CARPAL TUNNEL RIGHT x 2. CABG 1987 X2. JAIME SCOPES KNEES. Jaime Hip Replacement, [employer] oplicaton. Rt Shoulder Rotator Cuff. BACK X2. HX OF EPIDURALS FOR PAIN. Past Anesthesia/Blood Transfusion Reactions: No Reported Reaction Past Psychological History: No Psychological Hx Reported Smoking Status: Former smoker Past Alcohol Use History: None Reported Past Drug Use History: None Reported - Past Family History Daughter(s) Family Medical History: Cancer Father History Unknown: Yes Mother Family Medical History: No Reported History General Exam Limitations: altered mental status General appearance: in no apparent distress, lethargic Head exam: Present: atraumatic, normocephalic, normal inspection ENT exam: Present: mucous membranes dry Neck exam: Present: normal inspection. Absent: tenderness, meningismus, lymphadenopathy Respiratory exam: Present: wheezes, decreased breath sounds Cardiovascular Exam: Present: tachycardia, irregular rhythm GI/Abdominal exam: Present: soft, normal bowel sounds. Absent: distended, te nderness, guarding, rebound, rigid Extremities exam: Present: other (left calcaneal wound with mild drainage. Wrapped with clean dressings from nursing facility) Back exam: Present: other (stage 3 sacral wound ) Neurological exam: Present: altered Psychiatric exam: Present: flat affect Skin exam: Present: warm Course Vital Signs 04/24/20 04/24/20 04/24/20 16:40 17:40 18:23 Temperature 102 F H 99.6 F Pulse Rate 107 H 122 H 126 H Pulse Rate [ Pulse Oximetery ] Respiratory 24 24 24 Rate Blood Pressure 127/73 129/74 118/75 O2 Sat by Pulse 85 L 95 96 Oximetry 04/24/20 04/24/20 04/24/20 19:57 20:02 21:05 Temperature 98.9 F Pulse Rate 119 H 116 H Pulse Rate [ 119 H Pulse Oximetery ] Respiratory 20 20 20 Rate Blood Pressure 106/69 105/66 O2 Sat by Pulse 95 95 Oximetry 04/24/20 04/24/20 22:07 22:54 Temperature 97.7 F 98.1 F Pulse Rate 119 H 116 H Pulse Rate [ Pulse Oximetery ] Respiratory 22 22 Rate Blood Pressure 107/58 121/55 O2 Sat by Pulse 95 98 Oximetry Medical Decision Making - Medical Decision Making Upon arrival patient is placed into room 4. A thorough history and physical exam was performed. Patient does have a stage III sacral wound. Also on the patient's left heel looks improved compared to last hospitalization. IV by EMS infiltrate and therefore second one is placed. Patient given 1000 mg of Tylenol and a liter bolus of normal saline. He is started on 130 mL of saline per hour as he does have a history of heart failure however is also septic with 102 fever. Patient's previous admissions demonstrated Pseudomonas and therefore he is started on Zosyn. Laboratory studies are conducted. Continue to show chronic anemia. INR 1.8. BNP 3730 urinalysis demonstrates 30 white blood cells with many white blood cell clumps. Covid still detected. Specimen sent for C. diff which is negative. Repeat chest x-ray demonstrates worsening pulmonary infiltrates. Discussed the results with Dr. Abraham who agreed to admission. Requested Dr. Fontenot to be placed on consult. Pro calcitonin ordered. Patient's awaiting a bed on the floor - Lab Data Result diagrams: 04/28/20 07:10 04/28/20 07:10 Lab Results 04/24/20 04/24/20 04/24/20 Range/Units 17:04 17:04 17:04 WBC 8.5 (3.8-10.6) k/uL RBC 2.90 L (4.30-5.90) m/uL Hgb 7.7 L (13.0-17.5) gm/dL Hct 24.6 L (39.0-53.0) % MCV 84.6 (80.0-100.0) fL MCH 26.6 (25.0-35.0) pg MCHC 31.4 (31.0-37.0) g/dL RDW 18.1 H (11.5-15.5) % Plt Count 100 L (150-450) k/uL MPV 7.3 Neutrophils % 78 % Lymphocytes % 10 % Monocytes % 8 % Eosinophils % 2 % Basophils % 1 % Neutrophils # 6.6 (1.3-7.7) k/uL Lymphocytes # 0.8 L (1.0-4.8) k/uL Monocytes # 0.7 (0-1.0) k/uL Eosinophils # 0.1 (0-0.7) k/uL Basophils # 0.1 (0-0.2) k/uL Hypochromasia Moderate Anisocytosis Slight PT (9.0-12.0) sec INR (<1.2) APTT (22.0-30.0) sec Sodium 141 (137-145) mmol/L Potassium 3.9 (3.5-5.1) mmol/L Chloride 103 (98-107) mmol/L Carbon Dioxide 33 H (22-30) mmol/L Anion Gap 5 mmol/L BUN 34 H (9-20) mg/dL Creatinine 0.70 (0.66-1.25) mg/dL Est GFR (CKD-EPI)AfAm >90 (>60 ml/min/1.73 sqM) Est GFR (CKD-EPI)NonAf 88 (>60 ml/min/1.73 sqM) Glucose 124 H (74-99) mg/dL POC Glucose (mg/dL) (75-99) mg/dL POC Glu Satellite Instruction Facilitator ID Plasma Lactic Acid Gio (0.7-2.0) mmol/L Calcium 7.9 L (8.4-10.2) mg/dL Total Bilirubin 0.8 (0.2-1.3) mg/dL AST 32 (17-59) U/L ALT 24 (4-49) U/L Alkaline Phosphatase 97 (38-126) U/L Creatine Kinase <20 L (55-170) U/L Troponin I (0.000-0.034) ng/mL NT-Pro-B Natriuret Pep pg/mL Total Protein 5.4 L (6.3-8.2) g/dL Albumin 2.5 L (3.5-5.0) g/dL Procalcitonin (0.02-0.09) ng/mL Urine Color Yellow Urine Appearance Cloudy (Clear) Urine pH 5.0 (5.0-8.0) Ur Specific [place] 1.015 (1.001-1.035) Urine Protein 1+ H (Negative) Urine Glucose (UA) Negative (Negative) Urine Ketones Negative (Negative) Urine Blood Small H (Negative) Urine Nitrite Negative (Negative) Urine Bilirubin Negative (Negative) Urine Urobilinogen <2.0 (<2.0) mg/dL Ur Leukocyte Esterase Large H (Negative) Urine RBC 30 H (0-5) /hpf Urine WBC 30 H (0-5) /hpf Urine WBC Clumps Rare H (None) /hpf Urine Bacteria Rare H (None) /hpf Urine Yeast (Budding) Many H (None) /hpf C. difficile (EIA) Intrp (Negative) Coronavirus (PCR) (Not Detectd) Influenza Type A RNA (Not Detectd) Influenza Type B (PCR) (Not Detectd) 04/24/20 04/24/20 04/24/20 Range/Units 17:04 17:04 17:04 WBC (3.8-10.6) k/uL RBC (4.30-5.90) m/uL Hgb (13.0-17.5) gm/dL Hct (39.0-53.0) % MCV (80.0-100.0) fL MCH (25.0-35.0) pg MCHC (31.0-37.0) g/dL RDW (11.5-15.5) % Plt Count (150-450) k/uL MPV Neutrophils % % Lymphocytes % % Monocytes % % Eosinophils % % Basophils % % Neutrophils # (1.3-7.7) k/uL Lymphocytes # (1.0-4.8) k/uL Monocytes # (0-1.0) k/uL Eosinophils # (0-0.7) k/uL Basophils # (0-0.2) k/uL Hypochromasia Anisocytosis PT 17.7 H (9.0-12.0) sec INR 1.8 H (<1.2) APTT 37.5 H (22.0-30.0) sec Sodium (137-145) mmol/L Potassium (3.5-5.1) mmol/L Chloride (98-107) mmol/L Carbon Dioxide (22-30) mmol/L Anion Gap mmol/L BUN (9-20) mg/dL Creatinine (0.66-1.25) mg/dL Est GFR (CKD-EPI)AfAm (>60 ml/min/1.73 sqM) Est GFR (CKD-EPI)NonAf (>60 ml/min/1.73 sqM) Glucose (74-99) mg/dL POC Glucose (mg/dL) (75-99) mg/dL POC Glu Satellite Instruction Facilitator ID Plasma Lactic Acid Gio 1.0 (0.7-2.0) mmol/L Calcium (8.4-10.2) mg/dL Total Bilirubin (0.2-1.3) mg/dL AST (17-59) U/L ALT (4-49) U/L Alkaline Phosphatase (38-126) U/L Creatine Kinase (55-170) U/L Troponin I (0.000-0.034) ng/mL NT-Pro-B Natriuret Pep pg/mL Total Protein (6.3-8.2) g/dL Albumin (3.5-5.0) g/dL Procalcitonin (0.02-0.09) ng/mL Urine Color Urine Appearance (Clear) Urine pH (5.0-8.0) Ur Specific [place] (1.001-1.035) Urine Protein (Negative) Urine Glucose (UA) (Negative) Urine Ketones (Negative) Urine Blood (Negative) Urine Nitrite (Negative) Urine Bilirubin (Negative) Urine Urobilinogen (<2.0) mg/dL Ur Leukocyte Esterase (Negative) Urine RBC (0-5) /hpf Urine WBC (0-5) /hpf Urine WBC Clumps (None) /hpf Urine Bacteria (None) /hpf Urine Yeast (Budding) (None) /hpf C. difficile (EIA) Intrp (Negative) Coronavirus (PCR) (Not Detectd) Influenza Type A RNA Not Detected (Not Detectd) Influenza Type B (PCR) Not Detected (Not Detectd) 04/24/20 04/24/20 04/24/20 Range/Units 17:04 17:04 17:04 WBC (3.8-10.6) k/uL RBC (4.30-5.90) m/uL Hgb (13.0-17.5) gm/dL Hct (39.0-53.0) % MCV (80.0-100.0) fL MCH (25.0-35.0) pg MCHC (31.0-37.0) g/dL RDW (11.5-15.5) % Plt Count (150-450) k/uL MPV Neutrophils % % Lymphocytes % % Monocytes % % Eosinophils % % Basophils % % Neutrophils # (1.3-7.7) k/uL Lymphocytes # (1.0-4.8) k/uL Monocytes # (0-1.0) k/uL Eosinophils # (0-0.7) k/uL Basophils # (0-0.2) k/uL Hypochromasia Anisocytosis PT (9.0-12.0) sec INR (<1.2) APTT (22.0-30.0) sec Sodium (137-145) mmol/L Potassium (3.5-5.1) mmol/L Chloride (98-107) mmol/L Carbon Dioxide (22-30) mmol/L Anion Gap mmol/L BUN (9-20) mg/dL Creatinine (0.66-1.25) mg/dL Est GFR (CKD-EPI)AfAm (>60 ml/min/1.73 sqM) Est GFR (CKD-EPI)NonAf (>60 ml/min/1.73 sqM) Glucose (74-99) mg/dL POC Glucose (mg/dL) (75-99) mg/dL POC Glu Satellite Instruction Facilitator ID Plasma Lactic Acid Gio (0.7-2.0) mmol/L Calcium (8.4-10.2) mg/dL Total Bilirubin (0.2-1.3) mg/dL AST (17-59) U/L ALT (4-49) U/L Alkaline Phosphatase (38-126) U/L Creatine Kinase (55-170) U/L Troponin I 0.013 (0.000-0.034) ng/mL NT-Pro-B Natriuret Pep 3730 pg/mL Total Protein (6.3-8.2) g/dL Albumin (3.5-5.0) g/dL Procalcitonin (0.02-0.09) ng/mL Urine Color Urine Appearance (Clear) Urine pH (5.0-8.0) Ur Specific [place] (1.001-1.035) Urine Protein (Negative) Urine Glucose (UA) (Negative) Urine Ketones (Negative) Urine Blood (Negative) Urine Nitrite (Negative) Urine Bilirubin (Negative) Urine Urobilinogen (<2.0) mg/dL Ur Leukocyte Esterase (Negative) Urine RBC (0-5) /hpf Urine WBC (0-5) /hpf Urine WBC Clumps (None) /hpf Urine Bacteria (None) /hpf Urine Yeast (Budding) (None) /hpf C. difficile (EIA) Intrp (Negative) Coronavirus (PCR) Detected A (Not Detectd) Influenza Type A RNA (Not Detectd) Influenza Type B (PCR) (Not Detectd) 04/24/20 04/24/20 04/24/20 Range/Units 17:04 17:28 17:30 WBC (3.8-10.6) k/uL RBC (4.30-5.90) m/uL Hgb (13.0-17.5) gm/dL Hct (39.0-53.0) % MCV (80.0-100.0) fL MCH (25.0-35.0) pg MCHC (31.0-37.0) g/dL RDW (11.5-15.5) % Plt Count (150-450) k/uL MPV Neutrophils % % Lymphocytes % % Monocytes % % Eosinophils % % Basophils % % Neutrophils # (1.3-7.7) k/uL Lymphocytes # (1.0-4.8) k/uL Monocytes # (0-1.0) k/uL Eosinophils # (0-0.7) k/uL Basophils # (0-0.2) k/uL Hypochromasia Anisocytosis PT (9.0-12.0) sec INR (<1.2) APTT (22.0-30.0) sec Sodium (137-145) mmol/L Potassium (3.5-5.1) mmol/L Chloride (98-107) mmol/L Carbon Dioxide (22-30) mmol/L Anion Gap mmol/L BUN (9-20) mg/dL Creatinine (0.66-1.25) mg/dL Est GFR (CKD-EPI)AfAm (>60 ml/min/1.73 sqM) Est GFR (CKD-EPI)NonAf (>60 ml/min/1.73 sqM) Glucose (74-99) mg/dL POC Glucose (mg/dL) 125 H (75-99) mg/dL POC Glu Satellite Instruction Facilitator ID Robbie Kee Plasma Lactic Acid Gio (0.7-2.0) mmol/L Calcium (8.4-10.2) mg/dL Total Bilirubin (0.2-1.3) mg/dL AST (17-59) U/L ALT (4-49) U/L Alkaline Phosphatase (38-126) U/L Creatine Kinase (55-170) U/L Troponin I (0.000-0.034) ng/mL NT-Pro-B Natriuret Pep pg/mL Total Protein (6.3-8.2) g/dL Albumin (3.5-5.0) g/dL Procalcitonin 0.26 H (0.02-0.09) ng/mL Urine Color Urine Appearance (Clear) Urine pH (5.0-8.0) Ur Specific [place] (1.001-1.035) Urine Protein (Negative) Urine Glucose (UA) (Negative) Urine Ketones (Negative) Urine Blood (Negative) Urine Nitrite (Negative) Urine Bilirubin (Negative) Urine Urobilinogen (<2.0) mg/dL Ur Leukocyte Esterase (Negative) Urine RBC (0-5) /hpf Urine WBC (0-5) /hpf Urine WBC Clumps (None) /hpf Urine Bacteria (None) /hpf Urine Yeast (Budding) (None) /hpf C. difficile (EIA) Intrp Negative (Negative) Coronavirus (PCR) (Not Detectd) Influenza Type A RNA (Not Detectd) Influenza Type B (PCR) (Not Detectd) - EKG Data EKG Comments: EKG demonstrates A. fib with a rate of 111. A QRS 142. QTC of 454. No acute ST segment elevations or depressions Disposition Clinical Impression: Atrial fibrillation, Stage I pressure ulcer of left heel, COVID-19, Pyrexia, Sepsis Disposition: ADMITTED IP TO THIS HOSP Condition: Stable Is patient prescribed a controlled substance at d/c from ED?: No Decision to Admit Reason: Admit from EC Decision Date: 04/24/20 Decision Time: 18:38
[2020-04-24] MEDS: SODIUM CHLORIDE 0.9% 1,000 ML IV SCH (18:48)
--- NOTE | 2020-04-24 18:50 | XR ---
EXAMINATION TYPE: XR chest 2V DATE OF EXAM: 04/24/2020 COMPARISON: 04/10/2020 HISTORY: Short of breath TECHNIQUE: 2 views FINDINGS: Heart is enlarged. There is probably vascular congestion. There is some mild patchy pulmona ry airspace infiltrates. There are chest leads. There is slight blunting of the costophrenic angles. IMPRESSION: Pulmonary congestion and pulmonary infiltrates increased compared to recent exam and cons istent with congestive heart failure and patchy pneumonia.
[2020-04-24] MEDS: PIPERACILLIN-TAZOBACTAM 3.375 GM in SODIUM CHLORIDE 0.9% 100 ML IVPB SCH (18:57)
[2020-04-24] MEDS ORDERED: IBUPROFEN 400 MG TAB PO PRN (19:18)
[2020-04-24] MEDS ORDERED: NALOXONE 0.4 MG/ML 1 ML VIAL IV PRN (19:18)
[2020-04-24] MEDS ORDERED: ACETAMINOPHEN TAB 325 MG TAB PO PRN ×2 (19:18→19:20)
[2020-04-24] MEDS ORDERED: ALBUTEROL HFA INHALER INHALATION PRN (19:20)
[2020-04-24] MEDS: ALBUTEROL HFA INHALER INHALATION SCH (20:28)
[2020-04-24] MEDS ORDERED: NON FORMULARY DRUG (Prostat Awc 30 ML) PO SCH (21:00)
[2020-04-24] MEDS: oxyCODONE-APAP 10-325MG 1 EACH TAB PO PRN (22:43)
[2020-04-24] MEDS: ATORVASTATIN 40 MG TAB PO SCH (22:44)
[2020-04-24] MEDS: DOCUSATE 100 MG CAP PO SCH (22:44)
[2020-04-25] MEDS: SYMBICORT 80-4.5 MCG INHALER INHALATION SCH ×3 (00:51→20:38)
[2020-04-25] MEDS: PIPERACILLIN-TAZOBACTAM 3.375 GM in SODIUM CHLORIDE 0.9% 100 ML IVPB SCH ×3 (01:15→16:12)
[2020-04-25] MEDS ORDERED: NON FORMULARY DRUG (Methyl Salicylate/Menthol [Salonpas Patch] 1 EACH Adh..Patch) TOPICAL SCH (06:00)
[2020-04-25] MEDS ORDERED: TIOTROPIUM 2.5 MCG INHALER INHALATION SCH ×2 (08:00)
[2020-04-25] MEDS: GABAPENTIN 300 MG CAP PO SCH ×2 (08:33→18:55)
[2020-04-25] MEDS: FAMOTIDINE 20 MG TAB PO SCH ×2 (08:33→18:56)
[2020-04-25] MEDS: ZINC SULFATE 220 MG CAP PO SCH (08:33)
[2020-04-25] MEDS: METOPROLOL TARTRATE 12.5 MG TAB PO SCH ×2 (08:33→18:55)
[2020-04-25 08:49] LABS: Anisocytosis Slight; Basophils % (A) 0 %; Eosinophils # (A) 0.2 k/uL (0-0.7); Eosinophils % (A) 2 %; HCT 27.9 % (39.0-53.0); HGB 8.5 gm/dL (13.0-17.5); Hypochromasia Marked; Lymphocytes # (A) 0.5 k/uL (1.0-4.8); Lymphocytes % (A) 7 %; MCH 26.3 pg (25.0-35.0); MCHC 30.3 g/dL (31.0-37.0); Mean Platelet Volume 7.8; Monocytes # (A) 0.4 k/uL (0-1.0); Monocytes % (A) 5 %; Neutrophils # (A) 6.7 k/uL (1.3-7.7); Neutrophils % (A) 84 %; Platelet Count 113 k/uL (150-450); RBC 3.21 m/uL (4.30-5.90); RDW 17.3 % (11.5-15.5)
[2020-04-25] MEDS ORDERED: RIVAROXABAN 20 MG TAB PO SCH (09:00)
[2020-04-25 09:01] LABS: African American GFR (CKD) >90 (>60 ml/min/1.73 sqM); Anion Gap 5 mmol/L; Blood Urea Nitrogen 31 mg/dL (9-20); Calcium 8.1 mg/dL (8.4-10.2); Carbon Dioxide 32 mmol/L (22-30); Chloride 105 mmol/L (98-107); Glucose 133 mg/dL (74-99); Non-African American GFR(CKD) >90 (>60 ml/min/1.73 sqM); Potassium 3.9 mmol/L (3.5-5.1); Sodium 142 mmol/L (137-145)
[2020-04-25] MEDS: ALBUTEROL HFA INHALER INHALATION SCH ×4 (09:10→20:37)
[2020-04-25] MEDS ORDERED: NON FORMULARY DRUG (Lactose-Reduced Food [Ensure Plus] 237 ML Liquid) PO SCH (10:00)
--- NOTE | 2020-04-25 10:20 | P.CONS ---
History of Present Illness - Reason for Consult Consult date: 04/25/20 Wound care - History of Present Illness This is an 80-year-old patient who was seen approximately 2 weeks ago by wound care center and again today for nonhealing ulcerations to the sacrum, right malleolus, and right medial calcaneus. Patient states that the ulcerations have been there for many months. He was scheduled to see the wound care center on April 07 however he was inpatient at the time and has not made another appointment. 2 weeks ago honey alginate was prescribed with instructions to continue in the home until a appointment with wound care can be made. Per patient no dressings have been done at home. Patient is here for fever he has a positive UTI and positive Covid. Family is concerned that the wounds are infected and is causing the fevers. Patient has medical history significant for atrial fibrillation, congestive heart failure, COPD, hypertension, myocardial infarction, chronic back pain, patient is a former smoker denies diabetes. Review Of Systems: Constitutional: Reports fever, no chills, no night sweats. No weight change. Reports weakness and fatigue no lethargy. No daytime sleepiness. Integumentary:reports wounds, no lesions. No rash or pruritus. No unusual bruising. No change in hair or nails. Physical exam: General Appearance: Alert, cooperative, no distress, appears stated age. Skin: Full thickness stage III pressure ulcer to the sacrum with fat layer exposure no tunneling or undermining noted measuring approximate 4 x 6 x 0.2 no granulation is seen throughout the wound bed with large amount of slough. Ecchymosis noted to the periwound along with scarring. Right malleolus is a stage II pressure ulcer with fatty layer exposure slough noted throughout the wo und bed with minimal granulation measuring approximately 1 x 1 x 0.2 cm wound edges are attached to the wound base with no tunneling or undermining. Left medial calcaneus unstageable with an eschar In place. Ecchymosis seen throughout the ulceration. all other Skin color, texture, tugor decrease no rashes or lesions. Neurologic: Alert oriented x3 Assessment/plan: 1. Stage III pressure ulcer sacrum: Apply honey alginate, saline moistened gauze, border foam change Friday. 2. Stage II pressure ulcer right malleolus: Apply honey alginate, saline moistened gauze, dry gauze, rolled gauze and secure with paper tape. Utilize foam heel protectors. 3. Unstageable pressure ulcer left calcaneus: Apply honey alginate, saline with gauze, dry gauze, rolled gauze secured with paper tape. Utilize foam heel protectors Continue with the dressings upon discharge. Patient is encouraged to make an appointment with the wound care center we are happy to see him to continue treatment of his wounds. Thank you for the consultation any questions please contact the wound care [facility] DNP note has been reviewed and discussed with Dr. Yin and the impression and plan of care has been directed as dictated. Past Medical History Past Medical History: Atrial Fibrillation, Heart Failure, COPD, Hypertension, Myocardial Infarction ([place]), Musculoskeletal Disorder, Osteoarthritis (OA), Pneumonia, Thyroid Disorder Additional Past Medical History / Comment(s): left breast mass HX OF COLON POLYPS. HX RIGHT BREAST MASS. O2 AT 2L NC @HS AND PRN. Hx Aspiration Pneumonia R/T "FLAPPER." HX OF THYROID PROBLEM - NO TX NOW. CHRONIC BACK PAIN, RUPESH LEG NT. RT FOOT/ANKLE EDEMA, WEARS TEDS. RUPESH CTS Last Myocardial Infarction Date:: 1987 History of Any Multi-Drug Resistant Organisms: MRSA Year Discovered:: MRSA 03/19/20 MDRO Source:: Foot Past Surgical History: Back Surgery, Coronary Bypass/CABG, Joint Replacement, Orthopedic Surgery Additional Past Surgical History / Comment(s): left carpel tunnel, CARPAL TUNNEL RIGHT x 2. CABG 1987 X2. RUPESH SCOPES KNEES. Rupesh Hip Replacement, Nicholas Fundoplicaton. Rt Shoulder Rotator Cuff. BACK X2. HX OF EPIDURALS FOR PAIN. Past Anesthesia/Blood Transfusion Reactions: No Reported Reaction Past Psychological History: No Psychological Hx Reported Smoking Status: Former smoker Past Alcohol Use History: None Reported Past Drug Use History: None Reported - Past Family History Daughter(s) Family Medical History: Cancer Father History Unknown: Yes Mother Family Medical History: No Reported History Medications and Allergies Home Medications Medication Instructions Recorded Confirmed Type Rivaroxaban [Xarelto] 20 mg PO DAILY@0900 08/06/13 04/24/20 History Furosemide 40 mg PO DAILY@0900 08/09/13 04/24/20 History Fluticasone/Salmeterol [Advair 1 puff INHALATION RT-BID@0900,2100 08/18/14 04/24/20 History 250-50 Diskus] Tiotropium 18 Mcg/Puff [Spiriva] 1 cap INHALATION RT-DAILY 08/18/14 04/24/20 History Atorvastatin [Lipitor] 40 mg PO HS@209901/20/18 04/24/20 History Multivitamin [Men's Multi-Vitamin] 1 tab PO DAILY@1700 01/20/18 04/24/20 History Albuterol Sulfate [Ventolin HFA] 2 puff INHALATION RT-Q6H PRN 11/22/19 04/24/20 History Ipratropium-Albuterol Nebulize 3 ml INHALATION RT-QID 11/22/19 04/24/20 History [Duoneb 0.5 mg-3 mg/3 ml Soln] Acetaminophen Tab [Tylenol] 650 mg PO Q6HR PRN tab 01/11/20 04/24/20 Rx Ascorbic Acid [Vitamin C] 1,000 mg PO DAILY@1800 03/19/20 04/24/20 History Calcium Carbonate [Calcium] 600 mg PO DAILY@1800 03/19/20 04/24/20 History Cholecalciferol [Vitamin D3 (25 1,000 unit PO DAILY@1800 03/19/20 04/24/20 History Mcg = 1000 Iu)] Cyanocobalamin (Vitamin B-12) 1,000 mcg PO DAILY@1800 03/19/20 04/24/20 History [Vitamin B-12] Famotidine [Pepcid] 20 mg PO BID@0900,1800 04/02/20 04/24/20 History Metoprolol Tartrate [Lopressor] 12.5 mg PO BID@0900,1800 04/02/20 04/24/20 History Collagenase [Santyl] 1 applic TOPICAL Q12H 04/24/20 04/24/20 History Docusate [Colace] 100 mg PO HS@209904/24/20 04/24/20 History Gabapentin 600 mg PO BID@0900,1800 04/24/20 04/24/20 History Ibuprofen [Motrin] 400 mg PO Q6HR PRN 04/24/20 04/24/20 History Lactose-Reduced Food [Ensure Plus] 1 can PO BID@1000,1500 04/24/20 04/24/20 History Methyl Salicylate/Menthol 1 patch TOPICAL DAILY@0600 04/24/20 04/24/20 History [Salonpas Patch] Moxifloxacin HCl [Avelox] 400 mg PO DAILY@0900 04/24/20 04/24/20 History Prostat Awc 30 ml PO BID@0900,2100 04/24/20 04/24/20 History Zinc 50 mg PO DAILY@0900 04/24/20 04/24/20 History oxyCODONE HCL/ACETAMINOPHEN 1 tab PO Q6H PRN 04/24/20 04/24/20 History [Percocet 10-325 mg] Allergies Allergy/AdvReac Type Severity Reaction Status Date / Time No Known Allergies Allergy Verified 04/24/20 16:44 Physical Exam Vitals: Vital Signs Temp Pulse Pulse Resp BP BP Pulse Ox 04/25/20 04:00 98.9 F 119 H 20 95/58 92 L 04/25/20 02:00 119 H 17 04/25/20 00:00 97.8 F 119 H 17 101/68 97 04/24/20 22:54 98.1 F 116 H 22 121/55 98 04/24/20 22:07 97.7 F 119 H 22 107/58 95 04/24/20 21:05 116 H 20 105/66 95 04/24/20 20:02 119 H 20 04/24/20 19:57 98.9 F 119 H 20 106/69 95 04/24/20 18:23 99.6 F 126 H 24 118/75 96 04/24/20 17:40 122 H 24 129/74 95 04/24/20 16:40 102 F H 107 H 24 127/73 85 L Intake and Output 04/24/20 04/25/20 04/25/20 22:59 06:59 14:59 Other: Voiding Method Indwelling Catheter Indwelling Catheter Weight 75.75 kg 74 kg Results CBC & Chem 7: 04/25/20 08:26 04/25/20 08:26 Labs: Abnormal Lab Results - Last 24 Hours (Table) 04/24/20 04/24/20 04/24/20 Range/Units 17:04 17:04 17:04 RBC 2.90 L (4.30-5.90) m/uL Hgb 7.7 L (13.0-17.5) gm/dL Hct 24.6 L (39.0-53.0) % MCHC (31.0-37.0) g/dL RDW 18.1 H (11.5-15.5) % Plt Count 100 L (150-450) k/uL Lymphocytes # 0.8 L (1.0-4.8) k/uL PT (9.0-12.0) sec INR (<1.2) APTT (22.0-30.0) sec Carbon Dioxide 33 H (22-30) mmol/L BUN 34 H (9-20) mg/dL Creatinine (0.66-1.25) mg/dL Glucose 124 H (74-99) mg/dL POC Glucose (mg/dL) (75-99) mg/dL Calcium 7.9 L (8.4-10.2) mg/dL Creatine Kinase <20 L (55-170) U/L Total Protein 5.4 L (6.3-8.2) g/dL Albumin 2.5 L (3.5-5.0) g/dL Procalcitonin (0.02-0.09) ng/mL Urine Protein 1+ H (Negative) Urine Blood Small H (Negative) Ur Leukocyte Esterase Large H (Negative) Urine RBC 30 H (0-5) /hpf Urine WBC 30 H (0-5) /hpf Urine WBC Clumps Rare H (None) /hpf Urine Bacteria Rare H (None) /hpf Urine Yeast (Budding) Many H (None) /hpf Coronavirus (PCR) (Not Detectd) 04/24/20 04/24/20 04/24/20 Range/Units 17:04 17:04 17:04 RBC (4.30-5.90) m/uL Hgb (13.0-17.5) gm/dL Hct (39.0-53.0) % MCHC (31.0-37.0) g/dL RDW (11.5-15.5) % Plt Count (150-450) k/uL Lymphocytes # (1.0-4.8) k/uL PT 17.7 H (9.0-12.0) sec INR 1.8 H (<1.2) APTT 37.5 H (22.0-30.0) sec Carbon Dioxide (22-30) mmol/L BUN (9-20) mg/dL Creatinine (0.66-1.25) mg/dL Glucose (74-99) mg/dL POC Glucose (mg/dL) (75-99) mg/dL Calcium (8.4-10.2) mg/dL Creatine Kinase (55-170) U/L Total Protein (6.3-8.2) g/dL Albumin (3.5-5.0) g/dL Procalcitonin 0.26 H (0.02-0.09) ng/mL Urine Protein (Negative) Urine Blood (Negative) Ur Leukocyte Esterase (Negative) Urine RBC (0-5) /hpf Urine WBC (0-5) /hpf Urine WBC Clumps (None) /hpf Urine Bacteria (None) /hpf Urine Yeast (Budding) (None) /hpf Coronavirus (PCR) Detected A (Not Detectd) 04/24/20 04/25/20 04/25/20 Range/Units 17:30 08:26 08:26 RBC 3.21 L (4.30-5.90) m/uL Hgb 8.5 L (13.0-17.5) gm/dL Hct 27.9 L (39.0-53.0) % MCHC 30.3 L (31.0-37.0) g/dL RDW 17.3 H (11.5-15.5) % Plt Count 113 L (150-450) k/uL Lymphocytes # 0.5 L (1.0-4.8) k/uL PT (9.0-12.0) sec INR (<1.2) APTT (22.0-30.0) sec Carbon Dioxide 32 H (22-30) mmol/L BUN 31 H (9-20) mg/dL Creatinine 0.62 L (0.66-1.25) mg/dL Glucose 133 H (74-99) mg/dL POC Glucose (mg/dL) 125 H (75-99) mg/dL Calcium 8.1 L (8.4-10.2) mg/dL Creatine Kinase (55-170) U/L Total Protein (6.3-8.2) g/dL Albumin (3.5-5.0) g/dL Procalcitonin (0.02-0.09) ng/mL Urine Protein (Negative) Urine Blood (Negative) Ur Leukocyte Esterase (Negative) Urine RBC (0-5) /hpf Urine WBC (0-5) /hpf Urine WBC Clumps (None) /hpf Urine Bacteria (None) /hpf Urine Yeast (Budding) (None) /hpf Coronavirus (PCR) (Not Detectd) Assessment and Plan (1) Stage 3 skin ulcer of sacral region Current Visit: Yes Status: Acute Code(s): L98.429 - NON-PRESSURE CHRONIC ULCER OF BACK WITH UNSPECIFIED SEVERITY SNOMED Code(s): 85669270 (2) Unstageable pressure ulcer of left heel Current Visit: Yes Status: Acute Code(s): L89.620 - PRESSURE ULCER OF LEFT HEEL, UNSTAGEABLE SNOMED Code(s): 357215044 (3) Pressure ulcer of right ankle, stage 2 Current Visit: No Status: Acute Code(s): L89.512 - PRESSURE ULCER OF RIGHT ANKLE, STAGE 2 SNOMED Code(s): 866221996
--- NOTE | 2020-04-25 14:07 | P.HPIM ---
History of Present Illness H&P Date: 04/25/20 Chief Complaint: Worsening shortness of breath This is an 80-year-old gentleman from subacute rehab ,recently admitted with acute COvid Pneumonia, sepsis, pseudomonas aeruginosa pneumonia and MRSA with pseudomonas aeruginosa of chronic right foot wound and sacral pressure ulcer and multiple other medical issues, re-admitted to hospital with worsening shortness of breath, fevers, 1O2 on admission, currently T-max 99.7, normal WBC, retested for coronavirus-reporting positive, influenza A/B not detected, acute respiratory failure, 85% on room air, requiring 4 L nasal cannula O2 to maintain O2 sats in the 90s , previously discharged on 2 L nasal cannula, mild tachycardia. Borderline hypotension on admission, systolic blood pressure currently in the 130s. Hemoglobin/platelets on admission 7.7/100, currently up to 8.5, 113, INR 1.8. Sodium 142, potassium 3.9, BUN 31, creatinine 0.62 blood sugars ranging 120s to 130s, lactic acid 1, calcium 8.1, albumin 2.5, pro-ca lcitonin 0.26. UA negative for nitrates, large leukocytes, 30 urine WBCs with rare WBC clumps and rare bacteria. Negative for C. difficile. Chest x-ray reporting pulmonary congestion and pulmonary infiltrates increased compared to recent exam consistent with CHF / patchy pneumonia. BNP 3730 EKG atrial fibrillation with right bundle branch block, troponin 0.013. Denies chest pain, palpitations. Denies nausea vomiting or abdominal pain. Received IV fluid hydration in the ER. Infectious disease consulted, Zosyn initiated. Review of Systems ROS Statement: Those systems with pertinent positive or pertinent negative responses have been documented in the HPI. ROS Other: All systems not noted in ROS Statement are negative. Past Medical History Past Medical History: Atrial Fibrillation, Heart Failure, COPD, Hypertension, Myocardial Infarction ([place]), Musculoskeletal Disorder, Osteoarthritis ([place]), Pneumonia, Thyroid Disorder Additional Past Medical History / Comment(s): left breast mass HX OF COLON POLYPS. HX RIGHT BREAST MASS. O2 AT 2L NC @HS AND PRN. Hx Aspiration Pneumonia R/T "FLAPPER." HX OF THYROID PROBLEM - NO TX NOW. CHRONIC BACK PAIN, RUPESH LEG NT. RT FOOT/ANKLE EDEMA, WEARS TEDS. RUPESH CTS Last Myocardial Infarction Date:: 1987 History of Any Multi-Drug Resistant Organisms: MRSA Date of last positivie culture/infection: MRSA 03/19/20 MDRO Source:: Foot Past Surgical History: Back Surgery, Coronary Bypass/CABG, Joint Replacement, Orthopedic Surgery Additional Past Surgical History / Comment(s): left carpel tunnel, CARPAL TUNNEL RIGHT x 2. CABG 1987 X2. RUPESH SCOPES KNEES. Rupesh Hip Replacement, Nicholas Fundoplicaton. Rt Shoulder Rotator Cuff. BACK X2. HX OF EPIDURALS FOR PAIN. Past Anesthesia/Blood Transfusion Reactions: No Reported Reaction Past Psychological History: No Psychological Hx Reported Smoking Status: Former smoker Past Alcohol Use History: None Reported Past Drug Use History: None Reported - Past Family History Daughter(s) Family Medical History: Cancer Father History Unknown: Yes Mother Family Medical History: No Reported History Medications and Allergies Home Medications Medication Instructions Recorded Confirmed Type Rivaroxaban [Xarelto] 20 mg PO DAILY@0900 08/06/13 04/24/20 History Furosemide 40 mg PO DAILY@0900 08/09/13 04/24/20 History Fluticasone/Salmeterol [Advair 1 puff INHALATION RT-BID@0900,209908/18/14 04/24/20 History 250-50 Diskus] Tiotropium 18 Mcg/Puff [Spiriva] 1 cap INHALATION RT-DAILY 08/18/14 04/24/20 History Atorvastatin [Lipitor] 40 mg PO HS@2100 01/20/18 04/24/20 History Multivitamin [Men's Multi-Vitamin] 1 tab PO DAILY@1700 01/20/18 04/24/20 History Albuterol Sulfate [Ventolin HFA] 2 puff INHALATION RT-Q6H PRN 11/22/19 04/24/20 History Ipratropium-Albuterol Nebulize 3 ml INHALATION RT-QID 11/22/19 04/24/20 History [Duoneb 0.5 mg-3 mg/3 ml Soln] Acetaminophen Tab [Tylenol] 650 mg PO Q6HR PRN tab 01/11/20 04/24/20 Rx Ascorbic Acid [Vitamin C] 1,000 mg PO DAILY@1800 03/19/20 04/24/20 History Calcium Carbonate [Calcium] 600 mg PO DAILY@1800 03/19/20 04/24/20 History Cholecalciferol [Vitamin D3 (25 1,000 unit PO DAILY@1800 03/19/20 04/24/20 History Mcg = 1000 Iu)] Cyanocobalamin (Vitamin B-12) 1,000 mcg PO DAILY@1800 03/19/20 04/24/20 History [Vitamin B-12] Famotidine [Pepcid] 20 mg PO BID@0900,1800 04/02/20 04/24/20 History Metoprolol Tartrate [Lopressor] 12.5 mg PO BID@0900,1800 04/02/20 04/24/20 History Collagenase [Santyl] 1 applic TOPICAL Q12H 04/24/20 04/24/20 History Docusate [Colace] 100 mg PO HS@2100 04/24/20 04/24/20 History Gabapentin 600 mg PO BID@0900,1800 04/24/20 04/24/20 History Ibuprofen [Motrin] 400 mg PO Q6HR PRN 04/24/20 04/24/20 History Lactose-Reduced Food [Ensure Plus] 1 can PO BID@1000,1500 04/24/20 04/24/20 History Methyl Salicylate/Menthol 1 patch TOPICAL DAILY@0600 04/24/20 04/24/20 History [Salonpas Patch] Moxifloxacin HCl [Avelox] 400 mg PO DAILY@0900 04/24/20 04/24/20 History Prostat Awc 30 ml PO BID@0900,2100 04/24/20 04/24/20 History Zinc 50 mg PO DAILY@0900 04/24/20 04/24/20 History oxyCODONE HCL/ACETAMINOPHEN 1 tab PO Q6H PRN 04/24/20 04/24/20 History [Percocet 10-325 mg] Allergies Allergy/AdvReac Type Severity Reaction Status Date / Time No Known Allergies Allergy Verified 04/24/20 16:44 Physical Exam Vitals: Vital Signs Temp Pulse Pulse Resp BP BP Pulse Ox 04/25/20 04:00 98.9 F 119 H 20 95/58 92 L 04/25/20 02:00 119 H 17 04/25/20 00:00 97.8 F 119 H 17 101/68 97 04/24/20 22:54 98.1 F 116 H 22 121/55 98 04/24/20 22:07 97.7 F 119 H 22 107/58 95 04/24/20 21:05 116 H 20 105/66 95 04/24/20 20:02 119 H 20 04/24/20 19:57 98.9 F 119 H 20 106/69 95 04/24/20 18:23 99.6 F 126 H 24 118/75 96 04/24/20 17:40 122 H 24 129/74 95 04/24/20 16:40 102 F H 107 H 24 127/73 85 L Intake and Output 04/24/20 04/25/20 04/25/20 22:59 06:59 14:59 Other: Voiding Method Indwelling Catheter Indwelling Catheter Weight 75.75 kg 74 kg PHYSICAL EXAM: VITAL SIGNS: As above GENERAL: Sitting up in bed, no acute distress. Mild confusion HEENT: Conjunctivae normal. eyes normal. NECK: No JVD. No thyroid enlargement. No LNs CARDIOVASCULAR: S1, S2, irregular. No murmur RESPIRATION: Breath sounds diminished in the bases. Occasional scattered expiratory wheezing. ABDOMEN: Soft, nontender . No guarding. no masses palpable. No ascites, No hepatosplenomegaly.Bowel sounds heard. LEGS: No edema. no swelling PSYCHIATRY: Alert and oriented X3, mood and affect normal. NERVOUS SYSTEM: Cranial N 2-12 grossly normal. Moves all 4 limbs. Diffuse weakness, No focal deficits. Strength and sensation grossly intact.. Skin: Right foot dressing clean dry and intact-stage II, left medial calcaneus unstageable with eschar topping, chronic stage III sacral pressure ulcer dressing minimal yellow drainage, some bloody drainage Lymphatic system. No LN neck axilla. Results CBC & Chem 7: 04/25/20 08:26 04/25/20 08:26 Labs: Abnormal Lab Results - Last 24 Hours (Table) 04/24/20 04/24/20 04/24/20 Range/Units 17:04 17:04 17:04 RBC 2.90 L (4.30-5.90) m/uL Hgb 7.7 L (13.0-17.5) gm/dL Hct 24.6 L (39.0-53.0) % MCHC (31.0-37.0) g/dL RDW 18.1 H (11.5-15.5) % Plt Count 100 L (150-450) k/uL Lymphocytes # 0.8 L (1.0-4.8) k/uL PT (9.0-12.0) sec INR (<1.2) APTT (22.0-30.0) sec Carbon Dioxide 33 H (22-30) mmol/L BUN 34 H (9-20) mg/dL Creatinine (0.66-1.25) mg/dL Glucose 124 H (74-99) mg/dL POC Glucose (mg/dL) (75-99) mg/dL Calcium 7.9 L (8.4-10.2) mg/dL Creatine Kinase <20 L (55-170) U/L Total Protein 5.4 L (6.3-8.2) g/dL Albumin 2.5 L (3.5-5.0) g/dL Procalcitonin (0.02-0.09) ng/mL Urine Protein 1+ H (Negative) Urine Blood Small H (Negative) Ur Leukocyte Esterase Large H (Negative) Urine RBC 30 H (0-5) /hpf Urine WBC 30 H (0-5) /hpf Urine WBC Clumps Rare H (None) /hpf Urine Bacteria Rare H (None) /hpf Urine Yeast (Budding) Many H (None) /hpf Coronavirus (PCR) (Not Detectd) 04/24/20 04/24/20 04/24/20 Range/Units 17:04 17:04 17:04 RBC (4.30-5.90) m/uL Hgb (13.0-17.5) gm/dL Hct (39.0-53.0) % MCHC (31.0-37.0) g/dL RDW (11.5-15.5) % Plt Count (150-450) k/uL Lymphocytes # (1.0-4.8) k/uL PT 17.7 H (9.0-12.0) sec INR 1.8 H (<1.2) APTT 37.5 H (22.0-30.0) sec Carbon Dioxide (22-30) mmol/L BUN (9-20) mg/dL Creatinine (0.66-1.25) mg/dL Glucose (74-99) mg/dL POC Glucose (mg/dL) (75-99) mg/dL Calcium (8.4-10.2) mg/dL Creatine Kinase (55-170) U/L Total Protein (6.3-8.2) g/dL Albumin (3.5-5.0) g/dL Procalcitonin 0.26 H (0.02-0.09) ng/mL Urine Protein (Negative) Urine Blood (Negative) Ur Leukocyte Esterase (Negative) Urine RBC (0-5) /hpf Urine WBC (0-5) /hpf Urine WBC Clumps (None) /hpf Urine Bacteria (None) /hpf Urine Yeast (Budding) (None) /hpf Coronavirus (PCR) Detected A (Not Detectd) 04/24/20 04/25/20 04/25/20 Range/Units 17:30 08:26 08:26 RBC 3.21 L (4.30-5.90) m/uL Hgb 8.5 L (13.0-17.5) gm/dL Hct 27.9 L (39.0-53.0) % MCHC 30.3 L (31.0-37.0) g/dL RDW 17.3 H (11.5-15.5) % Plt Count 113 L (150-450) k/uL Lymphocytes # 0.5 L (1.0-4.8) k/uL PT (9.0-12.0) sec INR (<1.2) APTT (22.0-30.0) sec Carbon Dioxide 32 H (22-30) mmol/L BUN 31 H (9-20) mg/dL Creatinine 0.62 L (0.66-1.25) mg/dL Glucose 133 H (74-99) mg/dL POC Glucose (mg/dL) 125 H (75-99) mg/dL Calcium 8.1 L (8.4-10.2) mg/dL Creatine Kinase (55-170) U/L Total Protein (6.3-8.2) g/dL Albumin (3.5-5.0) g/dL Procalcitonin (0.02-0.09) ng/mL Urine Protein (Negative) Urine Blood (Negative) Ur Leukocyte Esterase (Negative) Urine RBC (0-5) /hpf Urine WBC (0-5) /hpf Urine WBC Clumps (None) /hpf Urine Bacteria (None) /hpf Urine Yeast (Budding) (None) /hpf Coronavirus (PCR) (Not Detectd) Thrombosis Risk Factor Assmnt - Choose All That Apply Any of the Below Risk Factors Present?: No Other Risk Factors: Yes Each Risk Factor Represents 3 Points: Age 75 years or older Thrombosis Risk Factor Assessment Total Risk Factor Score: 3 Thrombosis Risk Factor Assessment Level: Moderate Risk Assessment and Plan Assessment: Sepsis secondary to multiple wounds-chronic right malleolus wound -stage II, left medial calcaneus unstageable chronic stage III sacral pressure ulcer, healthcare acquired pneumonia, subacute Covid. Acute on chronic hypoxic respiratory failure secondary to the above, in a patient with severe COPD. Recent Covid pneumonia, treated with Remedesivir Recent Sepsis secondary to pseudomonas aeruginosa pneumonia and MRSA with pseudomonas aeruginosa of chronic right malleolus wound -stage II, left medial calcaneus unstageable chronic stage III sacral pressure ulcer. Altered mental status, acute metabolic encephalopathy multifactorial, secondary to all the above History of Bilateral lung nodules, outpatient PET scan with pulmonary recommended History of Possible mass at the GE junction, however EGD reported no apparent mass,small paraesophageal hernia, presbyesophagus, mild gastritis. History of Sujit fundoplication CAD, history of MD, CABG Chronic atrial fibrillation, anticoagulated with Xarelto Chronic CHF, EF currently unknown Hypertension Hypothyroidism Degenerative joint disease Chronic back pain History of nicotine dependence Chronic anemia Plan: Continue on current medication regime ,monitoring and symptomatic treatment. Infectious disease, wound care consults in place. Surgery consulted for potential surgical debridement. Specialty mattress ordered secondary to multiple wounds. Echo ordered, if not done within the last 6 months. Seroquel ordered for delirium/hallucinations. Prognosis guarded given multiple complex medical issues. The impression and plan of care has been dictated as directed. : I performed a history and examination of this patient, discussed the same with the dictator. I agree with the dictator's note ,documented as a scribe. Any additional findings or plans will be noted.
--- NOTE | 2020-04-25 15:13 | P.GSCN ---
History of Present Illness Consult date: 04/25/20 Reason for Consult: Sacral wound History of present illness: 80-year-old male brought to the hospital from [facility] because of fevers and malaise. Patient was hospitalized between 04/02 and 04/11. At that time patient treated for Covid pneumonia amongst other issues. Patient was noted to have sacral decubitus ulcer at that time as well as a bilateral heel ulcers. Comes back to the hospital with recurrent fevers as high as 102. Infectious disease and wound care have evaluated the patient. We were consulted for surgical debridement sacral wound. Review of Systems The patient denies any acute changes in vision or hearing, no dysphagia or odynophagia, no chest pain or shortness of breath, no dysuria or hematuria, no headache, no runny nose, no rectal bleeding or melena, no unexplained weight loss Past Medical History Past Medical History: Atrial Fibrillation, Heart Failure, COPD, Hypertension, Myocardial Infarction ([place]), Musculoskeletal Disorder, Osteoarthritis (OA), Pneumonia, Thyroid Disorder Additional Past Medical History / Comment(s): left breast mass HX OF COLON POLYPS. HX RIGHT BREAST MASS. O2 AT 2L NC @HS AND PRN. Hx Aspiration Pneumonia R/T "FLAPPER." HX OF THYROID PROBLEM - NO TX NOW. CHRONIC BACK PAIN, RUPESH LEG NT. RT FOOT/ANKLE EDEMA, WEARS TEDS. RUPESH CTS Last Myocardial Infarction Date:: 1987 History of Any Multi-Drug Resistant Organisms: MRSA Year Discovered:: MRSA 03/19/20 MDRO Source:: Foot Past Surgical History: Back Surgery, Coronary Bypass/CABG, Joint Replacement, Orthopedic Surgery Additional Past Surgical History / Comment(s): left carpel tunnel, CARPAL TUNNEL RIGHT x 2. CABG 1987 X2. RUPESH SCOPES KNEES. Rupesh Hip Replacement, Nicholas Fundoplicaton. Rt Shoulder Rotator Cuff. BACK X2. HX OF EPIDURALS FOR PAIN. Past Anesthesia/Blood Transfusion Reactions: No Reported Reaction Past Psychological History: No Psychological Hx Reported Smoking Status: Former smoker Past Alcohol Use History: None Reported Past Drug Use History: None Reported - Past Family History Daughter(s) Family Medical History: Cancer Father History Unknown: Yes Mother Family Medical History: No Reported History Medications and Allergies Home Medications Medication Instructions Recorded Confirmed Type Rivaroxaban [Xarelto] 20 mg PO DAILY@0900 08/06/13 04/24/20 History Furosemide 40 mg PO DAILY@0900 08/09/13 04/24/20 History Fluticasone/Salmeterol [Advair 1 puff INHALATION RT-BID@0900,209908/18/14 04/24/20 History 250-50 Diskus] Tiotropium 18 Mcg/Puff [Spiriva] 1 cap INHALATION RT-DAILY 08/18/14 04/24/20 History Atorvastatin [Lipitor] 40 mg PO HS@209901/20/18 04/24/20 History Multivitamin [Men's Multi-Vitamin] 1 tab PO DAILY@1700 01/20/18 04/24/20 History Albuterol Sulfate [Ventolin HFA] 2 puff INHALATION RT-Q6H PRN 11/22/19 04/24/20 History Ipratropium-Albuterol Nebulize 3 ml INHALATION RT-QID 11/22/19 04/24/20 History [Duoneb 0.5 mg-3 mg/3 ml Soln] Acetaminophen Tab [Tylenol] 650 mg PO Q6HR PRN tab 01/11/20 04/24/20 Rx Ascorbic Acid [Vitamin C] 1,000 mg PO DAILY@1800 03/19/20 04/24/20 History Calcium Carbonate [Calcium] 600 mg PO DAILY@1800 03/19/20 04/24/20 History Cholecalciferol [Vitamin D3 (25 1,000 unit PO DAILY@1800 03/19/20 04/24/20 History Mcg = 1000 Iu)] Cyanocobalamin (Vitamin B-12) 1,000 mcg PO DAILY@1800 03/19/20 04/24/20 History [Vitamin B-12] Famotidine [Pepcid] 20 mg PO BID@0900,1800 04/02/20 04/24/20 History Metoprolol Tartrate [Lopressor] 12.5 mg PO BID@0900,1800 04/02/20 04/24/20 Hist ory Collagenase [Santyl] 1 applic TOPICAL Q12H 04/24/20 04/24/20 History Docusate [Colace] 100 mg PO HS@2100 04/24/20 04/24/20 History Gabapentin 600 mg PO BID@0900,1800 04/24/20 04/24/20 History Ibuprofen [Motrin] 400 mg PO Q6HR PRN 04/24/20 04/24/20 History Lactose-Reduced Food [Ensure Plus] 1 can PO BID@1000,1500 04/24/20 04/24/20 History Methyl Salicylate/Menthol 1 patch TOPICAL DAILY@0600 04/24/20 04/24/20 History [Salonpas Patch] Moxifloxacin HCl [Avelox] 400 mg PO DAILY@0900 04/24/20 04/24/20 History Prostat Awc 30 ml PO BID@0900,2100 04/24/20 04/24/20 History Zinc 50 mg PO DAILY@0900 04/24/20 04/24/20 History oxyCODONE HCL/ACETAMINOPHEN 1 tab PO Q6H PRN 04/24/20 04/24/20 History [Percocet 10-325 mg] Allergies Allergy/AdvReac Type Severity Reaction Status Date / Time No Known Allergies Allergy Verified 04/24/20 16:44 Surgical - Exam Vital Signs Temp Pulse Resp BP Pulse Ox 102 F H 107 H 24 127/73 85 L 04/24/20 16:40 04/24/20 16:40 04/24/20 16:40 04/24/20 16:40 04/24/20 16:40 Physical exam: General: Well-developed, well-nourished HEENT: Normocephalic, sclerae nonicteric Abdomen: Nontender, nondistended Extremities: No edema bilateral heel ulcers, sacral decubitus ulcer 6 x 4 cm with ecchymosis left lateral, periwound, mild tenderness, necrotic skin and fat on the right-hand side, no visible granulation tissue Neuro: Alert and oriented Results - Labs 04/25/20 08:26 04/25/20 08:26 Abnormal Lab Results - Last 24 Hours (Table) 04/24/20 04/24/20 04/24/20 Range/Units 17:04 17:04 17:04 RBC 2.90 L (4.30-5.90) m/uL Hgb 7.7 L (13.0-17.5) gm/dL Hct 24.6 L (39.0-53.0) % MCHC (31.0-37.0) g/dL RDW 18.1 H (11.5-15.5) % Plt Count 100 L (150-450) k/uL Lymphocytes # 0.8 L (1.0-4.8) k/uL PT (9.0-12.0) sec INR (<1.2) APTT (22.0-30.0) sec Carbon Dioxide 33 H (22-30) mmol/L BUN 34 H (9-20) mg/dL Creatinine (0.66-1.25) mg/dL Glucose 124 H (74-99) mg/dL POC Glucose (mg/dL) (75-99) mg/dL Calcium 7.9 L (8.4-10.2) mg/dL Creatine Kinase <20 L (55-170) U/L Total Protein 5.4 L (6.3-8.2) g/dL Albumin 2.5 L (3.5-5.0) g/dL Procalcitonin (0.02-0.09) ng/mL Urine Protein 1+ H (Negative) Urine Blood Small H (Negative) Ur Leukocyte Esterase Large H (Negative) Urine RBC 30 H (0-5) /hpf Urine WBC 30 H (0-5) /hpf Urine WBC Clumps Rare H (None) /hpf Urine Bacteria Rare H (None) /hpf Urine Yeast (Budding) Many H (None) /hpf Coronavirus (PCR) (Not Detectd) 04/24/20 04/24/20 04/24/20 Range/Units 17:04 17:04 17:04 RBC (4.30-5.90) m/uL Hgb (13.0-17.5) gm/dL Hct (39.0-53.0) % MCHC (31.0-37.0) g/dL RDW (11.5-15.5) % Plt Count (150-450) k/uL Lymphocytes # (1.0-4.8) k/uL PT 17.7 H (9.0-12.0) sec INR 1.8 H (<1.2) APTT 37.5 H (22.0-30.0) sec Carbon Dioxide (22-30) mmol/L BUN (9-20) mg/dL Creatinine (0.66-1.25) mg/dL Glucose (74-99) mg/dL POC Glucose (mg/dL) (75-99) mg/dL Calcium (8.4-10.2) mg/dL Creatine Kinase (55-170) U/L Total Protein (6.3-8.2) g/dL Albumin (3.5-5.0) g/dL Procalcitonin 0.26 H (0.02-0.09) ng/mL Urine Protein (Negative) Urine Blood (Negative) Ur Leukocyte Esterase (Negative) Urine RBC (0-5) /hpf Urine WBC (0-5) /hpf Urine WBC Clumps (None) /hpf Urine Bacteria (None) /hpf Urine Yeast (Budding) (None) /hpf Coronavirus (PCR) Detected A (Not Detectd) 04/24/20 04/25/20 04/25/20 Range/Units 17:30 08:26 08:26 RBC 3.21 L (4.30-5.90) m/uL Hgb 8.5 L (13.0-17.5) gm/dL Hct 27.9 L (39.0-53.0) % MCHC 30.3 L (31.0-37.0) g/dL RDW 17.3 H (11.5-15.5) % Plt Count 113 L (150-450) k/uL Lymphocytes # 0.5 L (1.0-4.8) k/uL PT (9.0-12.0) sec INR (<1.2) APTT (22.0-30.0) sec Carbon Dioxide 32 H (22-30) mmol/L BUN 31 H (9-20) mg/dL Creatinine 0.62 L (0.66-1.25) mg/dL Glucose 133 H (74-99) mg/dL POC Glucose (mg/dL) 125 H (75-99) mg/dL Calcium 8.1 L (8.4-10.2) mg/dL Creatine Kinase (55-170) U/L Total Protein (6.3-8.2) g/dL Albumin (3.5-5.0) g/dL Procalcitonin (0.02-0.09) ng/mL Urine Protein (Negative) Urine Blood (Negative) Ur Leukocyte Esterase (Negative) Urine RBC (0-5) /hpf Urine WBC (0-5) /hpf Urine WBC Clumps (None) /hpf Urine Bacteria (None) /hpf Urine Yeast (Budding) (None) /hpf Coronavirus (PCR) (Not Detectd) Diabetes panel 04/24/20 04/25/20 Range/Units 17:04 08:26 Sodium 141 142 (137-145) mmol/L Potassium 3.9 3.9 (3.5-5.1) mmol/L Chloride 103 105 (98-107) mmol/L Carbon Dioxide 33 H 32 H (22-30) mmol/L BUN 34 H 31 H (9-20) mg/dL Creatinine 0.70 0.62 L (0.66-1.25) mg/dL Glucose 124 H 133 H (74-99) mg/dL Calcium 7.9 L 8.1 L (8.4-10.2) mg/dL AST 32 (17-59) U/L ALT 24 (4-49) U/L Alkaline Phosphatase 97 (38-126) U/L Total Protein 5.4 L (6.3-8.2) g/dL Albumin 2.5 L (3.5-5.0) g/dL Calcium panel 04/24/20 04/25/20 Range/Units 17:04 08:26 Calcium 7.9 L 8.1 L (8.4-10.2) mg/dL Albumin 2.5 L (3.5-5.0) g/dL Pituitary panel 04/24/20 04/25/20 Range/Units 17:04 08:26 Sodium 141 142 (137-145) mmol/L Potassium 3.9 3.9 (3.5-5.1) mmol/L Chloride 103 105 (98-107) mmol/L Carbon Dioxide 33 H 32 H (22-30) mmol/L BUN 34 H 31 H (9-20) mg/dL Creatinine 0.70 0.62 L (0.66-1.25) mg/dL Glucose 124 H 133 H (74-99) mg/dL Calcium 7.9 L 8.1 L (8.4-10.2) mg/dL Adrenal panel 04/24/20 04/25/20 Range/Units 17:04 08:26 Sodium 141 142 (137-145) mmol/L Potassium 3.9 3.9 (3.5-5.1) mmol/L Chloride 103 105 (98-107) mmol/L Carbon Dioxide 33 H 32 H (22-30) mmol/L BUN 34 H 31 H (9-20) mg/dL Creatinine 0.70 0.62 L (0.66-1.25) mg/dL Glucose 124 H 133 H (74-99) mg/dL Calcium 7.9 L 8.1 L (8.4-10.2) mg/dL Total Bilirubin 0.8 (0.2-1.3) mg/dL AST 32 (17-59) U/L ALT 24 (4-49) U/L Alkaline Phosphatase 97 (38-126) U/L Total Protein 5.4 L (6.3-8.2) g/dL Albumin 2.5 L (3.5-5.0) g/dL Assessment and Plan (1) Stage 3 skin ulcer of sacral region Narrative/Plan: 80-year-old male with stage III sacral wound. Options of surgical debridement versus ongoing topical wound care discussed with the patient. He would like to have the wound debrided at this time and infectious disease is also advising that currently. Hold Xarelto if patient agreeable and consent is obtained for debridement sacral wound. Defer heel wounds to vascular/wound care. Current Visit: Yes Status: Acute Code(s): L98.429 - NON-PRESSURE CHRONIC ULCER OF BACK WITH UNSPECIFIED SEVERITY SNOMED Code(s): 87300106
[2020-04-25] MEDS: SODIUM CHLORIDE 0.9% 1,000 ML IV SCH ×2 (15:29→20:17)
--- NOTE | 2020-04-25 15:47 | FL ---
Modified barium swallow. HISTORY: Dysphagia. Modified barium swallow was performed with the department of speech pathology. The patient was prese nted with various consistencies of barium. There is no evidence for aspiration . Transient penetration with thin barium. Full report is to foll ow from the department of speech pathology. Impression: There is no evidence for aspiration .
[2020-04-25] MEDS: MULTIVITAMINS, THERA 1 EACH TAB PO SCH (16:12)
[2020-04-25] MEDS: QUEtiapine 25 MG TAB PO SCH ×2 (16:12→21:48)
[2020-04-25] MEDS: oxyCODONE-APAP 10-325MG 1 EACH TAB PO PRN (16:15)
[2020-04-25] MEDS ORDERED: VANCOMYCIN IV PER PHARMACY 1 EACH MISC MISCELLANE PRN (16:29)
[2020-04-25] MEDS ORDERED: VANCOMYCIN 1,500 MG in SODIUM CHLORIDE 0.9% 250 ML IVPB ONE (17:00)
[2020-04-25] MEDS: CALCIUM CARBONATE 500 MG CHEWABLE PO SCH (18:55)
[2020-04-25] MEDS: CYANOCOBALAMIN 500 MCG TAB PO SCH (18:55)
[2020-04-25] MEDS: CHOLECALCIFEROL 25 MCG (1000 IU) TABLET PO SCH (18:55)
[2020-04-25] MEDS: ASCORBIC ACID 500 MG TAB PO SCH (18:55)
[2020-04-25] MEDS: COLLAGENASE 250 UNIT/GM OINTMENT 30 GM TUBE TOPICAL SCH (21:10)
[2020-04-25] MEDS: CEFEPIME 2 GM in SODIUM CHLORIDE 0.9% 100 ML IVPB SCH (21:48)
[2020-04-25] MEDS: ATORVASTATIN 40 MG TAB PO SCH (21:48)
[2020-04-25] MEDS: DOCUSATE 100 MG CAP PO SCH (21:48)
--- NOTE | 2020-04-25 23:12 | CONS ---
CONSULTATION DATE OF SERVICE: 04/25/2020 REASON FOR CONSULTATION: Fever, pneumonia, HCAP. HISTORY OF PRESENT ILLNESS: The patient is an 80-year-old male with recent multiple admissions to this facility in this patient who has been treated with a previous episode of pneumonia secondary to Pseudomonas and subsequently has been admitted to hospital with COVID-19 pneumonia and was stabilized and discharged back to the long-term. The patient was brought to the ER at [facility] last night for evaluation of fever and mental status changes. Apparently the patient did have symptoms at the start of the day. He was brought to the hospital. The patient was noticed to have a fever of 102 degrees Fahrenheit. The patient was hypoxic with 85% on room air. The patient did have nasal cannula oxygen applied and has been admitted to the hospital. The patient on admission to hospital had a normal white count. He did have lymphopenia. Creatinine was normal. Liver enzymes were normal. Procalcitonin was 0.26. He did a have positive UA. Torres PCR came back positive. Stool for C difficile was negative. Influenza PCR was negative. The patient did have a chest x-ray; the patient's pulmonary condition and pulmonary infiltrate was increased compared to recent exam consistent with congestive heart failure. The patient did have a blood culture drawn, coming back positive for Gram-positive cocci in groups, 2/2. One was in a cluster. The patient is currently on Zosyn. Infectious Disease was consulted for further management of antibiotic therapy. The patient at the time of my evaluation is more awake and alert. The patient says he is breathing more comfortably. The patient denies having any chest pain. He did have a cough but not bringing up any sputum. Denies having any nausea. No vomiting. No abdominal pain or any diarrhea. The patient did have a wound to the left heel. Denies any symptoms referable to it. He did have a wound to the sacral area that seems to have shown significant worsening. They are not sure about local care being provided to him at the long-term. REVIEW OF SYSTEMS: Positive points have been mentioned in the HPI. Rest of the systems negative. PAST MEDICAL HISTORY: Atrial fibrillation, heart failure, COPD, hypertension, VA, pneumonia and COVID-19 infection recently. PAST SURGICAL HISTORY: Back surgery, coronary artery bypass grafting, left carpal tunnel, bilateral hip replacement. SOCIAL HISTORY: Remote history of smoking. Currently a long-term resident. No drinking or drug use. FAMILY HISTORY: No pertinent findings noticed. ALLERGIES: NO KNOWN DRUG ALLERGIES. MEDICATIONS: The patient is currently on Tylenol, vitamin C, Lipitor, Symbicort, Tums, vitamin D3, Santyl, Colace, Pepcid, Neurontin, Motrin, Lopressor, Theragran, Narcan, Zosyn, Seroquel, IV fluid and zinc. PHYSICAL EXAMINATION: Blood pressure 113/52 with a pulse of 100, temperature 99.7, temperature 102. He is 95% on 5 L nasal cannula. General description is an elderly male lying in bed in no distress. No tachypnea or accessory muscle of respiration use. HEENT: Examination shows pallor. No scleral icterus. Oral mucosa membrane is dry. NECK: Trachea is central. No thyromegaly. LUNGS: Unlabored breathing with decreased intensity of breath sounds. No wheeze or crackle. No added sound. HEART: S1, S2. Regular rate and rhythm. ABDOMEN: Soft. No tenderness. No guarding or rigidity. EXTREMITIES: No edema of feet. SKIN EXAMINATION: Left hip did have a pressure ulcer with some necrotic base. No surrounding swelling or redness or any drainage. The patient also has a wound on the right lateral malleolar area with minimal slough but no surrounding swelling or any drainage. The patient did have a stage III sacral pressure ulcer that did show significant worsening with significant amount of necrotic tissue. Minimal surrounding swelling and redness. Neurologically the patient is awake, alert, oriented x3. Mood and affect normal. LABS: Hemoglobin is 8.4, white count 8.0, BUN of 31, creatinine 0.62. Urine has been positive with large leukocyte esterase with WBC clumps and yeast. COVID test was positive, blood culture positive, Gram-positive. DIAGNOSTIC IMPRESSION AND PLAN: Patient admitted to hospital with sepsis in this patient with a fever, tachycardia. Source is likely catheter-associated urinary tract infection. Pneumonia less likely but not entirely excluded. The patient also had significant worsening of his sacral wound and that could be the source of infection at this point. PLAN: 1. Blood cultures will be repeated to document clearance of his bacteremia. 2. We will add vancomycin, Pharmacy to dose, while watching his kidney function and vancomycin trough closely. 3. Discontinue Zosyn to decrease nephrotoxicity, add cefepime to cover for the Gram- negative. 4. Local wound care to the sacral wound with Santyl followed by moist dressing. Wound Care is already consulted and General Surgery has been consulted for debridement of his wound. 5. We will follow his clinical condition and culture and further adjust medication if needed. Thank you for this consultation. Will follow this patient along with you. MMGREGORIOL / IJN: [id number] /
[2020-04-26] MEDS: VANCOMYCIN 1,250 MG in SODIUM CHLORIDE 0.9% 250 ML IVPB SCH ×2 (05:42→17:52)
[2020-04-26] MEDS: COLLAGENASE 250 UNIT/GM OINTMENT 30 GM TUBE TOPICAL SCH ×2 (05:42→17:52)
[2020-04-26 08:16] LABS: Anisocytosis Slight; Basophils % (A) 0 %; Eosinophils # (A) 0.1 k/uL (0-0.7); Eosinophils % (A) 2 %; HGB 7.9 gm/dL (13.0-17.5); Hypochromasia Marked; Lymphocytes # (A) 0.7 k/uL (1.0-4.8); Lymphocytes % (A) 10 %; MCH 27.1 pg (25.0-35.0); MCHC 31.5 g/dL (31.0-37.0); MCV 86.3 fL (80.0-100.0); Monocytes # (A) 0.4 k/uL (0-1.0); Monocytes % (A) 7 %; Neutrophils % (A) 79 %; Platelet Count 104 k/uL (150-450); RBC 2.89 m/uL (4.30-5.90); RDW 17.5 % (11.5-15.5); WBC 6.4 k/uL (3.8-10.6)
[2020-04-26 08:26] LABS: African American GFR (CKD) >90 (>60 ml/min/1.73 sqM); Anion Gap 5 mmol/L; Blood Urea Nitrogen 26 mg/dL (9-20); Calcium 8.2 mg/dL (8.4-10.2); Carbon Dioxide 30 mmol/L (22-30); Chloride 107 mmol/L (98-107); Glucose 98 mg/dL (74-99); Non-African American GFR(CKD) >90 (>60 ml/min/1.73 sqM); Potassium 4.7 mmol/L (3.5-5.1); Sodium 142 mmol/L (137-145)
[2020-04-26] MEDS: SYMBICORT 80-4.5 MCG INHALER INHALATION SCH ×2 (08:33→19:06)
[2020-04-26] MEDS: ALBUTEROL HFA INHALER INHALATION SCH ×4 (08:33→19:06)
[2020-04-26] MEDS: TIOTROPIUM 2.5 MCG INHALER INHALATION SCH (08:33)
[2020-04-26] MEDS: CEFEPIME 2 GM in SODIUM CHLORIDE 0.9% 100 ML IVPB SCH ×2 (09:25→22:25)
[2020-04-26] MEDS: SODIUM CHLORIDE 0.9% 1,000 ML IV SCH (09:25)
[2020-04-26] MEDS: ZINC SULFATE 220 MG CAP PO SCH (09:26)
[2020-04-26] MEDS: FAMOTIDINE 20 MG TAB PO SCH ×2 (09:26→17:52)
[2020-04-26] MEDS: GABAPENTIN 300 MG CAP PO SCH ×2 (09:26→17:52)
[2020-04-26] MEDS: METOPROLOL TARTRATE 12.5 MG TAB PO SCH ×2 (09:26→17:51)
--- NOTE | 2020-04-26 10:40 | P.PN ---
Subjective Progress Note Date: 04/26/20 This is an 80-year-old gentleman from subacute rehab ,recently admitted with acute COvid Pneumonia, sepsis, pseudomonas aeruginosa pneumonia and MRSA with pseudomonas aeruginosa of chronic right foot wound and sacral pressure ulcer and multiple other medical issues, re-admitted to hospital with worsening shortness of breath, fevers, 1O2 on admission, currently T-max 99.7, normal WBC, retested for coronavirus-reporting positive, influenza A/B not detected, acute respiratory failure, 85% on room air, requiring 4 L nasal cannula O2 to maintain O2 sats in the 90s , previously discharged on 2 L nasal cannula, mild tachycardia. Borderline hypotension on admission, systolic blood pressure currently in the 130s. Hemoglobin/platelets on admission 7.7/100, currently up to 8.5, 113, INR 1.8. Sodium 142, potassium 3.9, BUN 31, creatinine 0.62 blood sugars ranging 120s to 130s, lactic acid 1, calcium 8.1, albumin 2.5, pro- calcitonin 0.26. UA negative for nitrates, large leukocytes, 30 urine WBCs with rare WBC clumps and rare bacteria. Negative for C. difficile. Chest x-ray reporting pulmonary congestion and pulmonary infiltrates increased compared to recent exam consistent with CHF / patchy pneumonia. BNP 3730 EKG atrial fibrillation with right bundle branch block, troponin 0.013. Denies chest pain, palpitations. Denies nausea vomiting or abdominal pain. Received IV fluid hydration in the ER. Infectious disease consulted, Zosyn initiated. 04/26/2020 NPO with the exception of free water and ice chips, scheduled for MBS this a.m. Maintained on aspiration precautions. Evaluated by surgery,recommending surgical debridement of sacral wound , holding Xarelto. Preliminary blood cultures reporting coagulase-negative staph, mecA detected. Continues on cefepime and vancomycin. T-max 100, normal WBC. Yesterday afternoon developed some mild confusion with some visual hallucinations, pulled out his IV. Seroquel added to med regimen and patient had a good night. Feels better this morning. Oxygen requirements worsened, requiring 6 L nasal cannula O2 to maintain O2 sats of 88%, tachycardic, hemoglobin 7.9, platelets 104, BUN 26, creatinine 0.48. Chest x-ray ordered. Objective - Vital Signs Vital signs: Vital Signs Temp 100 F H 04/26/20 09:19 Pulse 124 H 04/26/20 09:19 Resp 20 04/26/20 09:19 BP 116/64 04/26/20 09:19 Pulse Ox 88 L 04/26/20 09:19 Intake & Output 04/25/20 04/26/20 04/26/20 18:59 06:59 18:59 Intake Total 820 90 Output Total 1000 400 600 Balance -180 -400 -510 Weight 73 kg Intake: Oral 820 90 Output: Urine 1000 400 600 Other: Voiding Method Indwelling Catheter Indwelling Catheter # Bowel Movements 1 - Exam PHYSICAL EXAM: VITAL SIGNS: As above GENERAL: Sitting up in bed, no acute distress. HEENT: Conjunctivae normal. eyes normal. NECK: No JVD. No thyroid enlargement. No LNs CARDIOVASCULAR: S1, S2, irregular. No murmur RESPIRATION: Breath sounds diminished in the bases. Less scattered expiratory wheezing. ABDOMEN: Soft, nontender . No guarding. no masses palpable. Positive Bowel sounds. LEGS: No edema. no swelling PSYCHIATRY: Alert and oriented X3, mood and affect normal. NERVOUS SYSTEM: Cranial N 2-12 grossly normal. Moves all 4 limbs. Diffuse weakness, No focal deficits. Strength and sensation grossly intact.. Skin: Right foot dressing clean dry and intact-(stage II), left medial calcaneus (unstageable), chronic (stage III )sacral pressure ulcer dressing clean dry and intact. - Labs CBC & Chem 7: 04/26/20 07:55 04/26/20 07:55 Labs: Abnormal Lab Results - Last 24 Hours (Table) 04/26/20 04/26/20 Range/Units 07:55 07:55 RBC 2.89 L (4.30-5.90) m/uL Hgb 7.9 L (13.0-17.5) gm/dL Hct 25.0 L (39.0-53.0) % RDW 17.5 H (11.5-15.5) % Plt Count 104 L (150-450) k/uL Lymphocytes # 0.7 L (1.0-4.8) k/uL BUN 26 H (9-20) mg/dL Creatinine 0.48 L (0.66-1.25) mg/dL Calcium 8.2 L (8.4-10.2) mg/dL Microbiology - Last 24 Hours (Table) 04/24/20 17:04 Blood Culture Gram Stain - Preliminary Blood Blood Culture - Preliminary Coagulase Negative Staph 04/24/20 17:04 Blood Culture - Preliminary Blood No Growth after 24 hours 04/24/20 17:04 Blood Culture - Final Blood Assessment and Plan Assessment: Sepsis secondary to multiple wounds-chronic right malleolus wound -stage II, left medial calcaneus unstageable chronic stage III sacral pressure ulcer, healthcare acquired pneumonia, subacute Covid, possible bacteremia-preliminary cultures reporting coagulase-negative staph. Acute on chronic hypoxic respiratory failure secondary to the above, in a patient with severe COPD, possible mild component of CHF. Recent Covid pneumonia, treated with Remedesivir Recent Sepsis secondary to pseudomonas aeruginosa pneumonia and MRSA with pseud omonas aeruginosa of chronic right malleolus wound -stage II, left medial calcaneus unstageable chronic stage III sacral pressure ulcer. Altered mental status, acute metabolic encephalopathy multifactorial, secondary to all the above History of Bilateral lung nodules, outpatient PET scan with pulmonary recommended History of Possible mass at the GE junction, however EGD reported no apparent mass,small paraesophageal hernia, presbyesophagus, mild gastritis. History of Sujit fundoplication CAD, history of OH, CABG Chronic atrial fibrillation, anticoagulated with Xarelto Chronic CHF, EF currently unknown Hypertension Hypothyroidism Degenerative joint disease Chronic back pain History of nicotine dependence Chronic anemia Plan: Continue on current medication regime ,monitoring and symptomatic treatment. Echo pending. Chest x-ray ordered. Pulmonary consulted. IV fluids discontinued. Antibiotics as per ID .Xarelto on hold for surgical debridement- now scheduled for tomorrow. Prognosis guarded given multiple complex medical issues. The impression and plan of care has been dictated as directed. : I performed a history and examination of this patient, discussed the same with the dictator. I agree with the dictator's note ,documented as a scribe. Any additional findings or plans will be noted.
[2020-04-26 10:53] LABS: Erythrocyte Sedimentation Rate 90 mm/hr (0-15)
[2020-04-26 10:59] LABS: C Reactive Protein 173.6 mg/L (<10.0)
--- NOTE | 2020-04-26 11:37 | P.PN ---
Subjective Progress Note Date: 04/26/20 Principal diagnosis: Sacral decubitus ulcer Patient without new complaints. He remains tachycardic. Less short of breath. Mild sacral discomfort. Objective - Vital Signs Vital signs: Vital Signs Temp 100 F H 04/26/20 09:19 Pulse 124 H 04/26/20 09:19 Resp 20 04/26/20 10:19 BP 116/64 04/26/20 09:19 Pulse Ox 94 L 04/26/20 10:19 Intake & Output 04/25/20 04/26/20 04/26/20 18:59 06:59 18:59 Intake Total 820 90 Output Total 1000 400 600 Balance -180 -400 -510 Weight 73 kg 73 kg Intake: Oral 820 90 Output: Urine 1000 400 600 Other: Voiding Method Indwelling Catheter Indwelling Catheter # Bowel Movements 1 - Exam Sacral wound 6 x 4 cm, necrotic tissue again noted, mild tenderness - Labs CBC & Chem 7: 04/26/20 07:55 04/26/20 07:55 Labs: Abnormal Lab Results - Last 24 Hours (Table) 04/26/20 04/26/20 04/26/20 Range/Units 07:55 07:55 07:55 RBC 2.89 L (4.30-5.90) m/uL Hgb 7.9 L (13.0-17.5) gm/dL Hct 25.0 L (39.0-53.0) % RDW 17.5 H (11.5-15.5) % Plt Count 104 L (150-450) k/uL Lymphocytes # 0.7 L (1.0-4.8) k/uL ESR 90 H (0-15) mm/hr BUN 26 H (9-20) mg/dL Creatinine 0.48 L (0.66-1.25) mg/dL Calcium 8.2 L (8.4-10.2) mg/dL C-Reactive Protein 173.6 H (<10.0) mg/L Procalcitonin 0.13 H (0.02-0.09) ng/mL Microbiology - Last 24 Hours (Table) 04/24/20 17:04 Blood Culture Gram Stain - Preliminary Blood Blood Culture - Preliminary Coagulase Negative Staph 04/24/20 17:04 Blood Culture - Preliminary Blood No Growth after 24 hours 04/24/20 17:04 Blood Culture - Final Blood Assessment and Plan (1) Stage 3 skin ulcer of sacral region Narrative/Plan: Spoke with the patient and his family by phone. We'll proceed with debridement in the operating room under light anesthesia tomorrow. Continue antibiotics. Current Visit: Yes Status: Acute Code(s): L98.429 - NON-PRESSURE CHRONIC ULCER OF BACK WITH UNSPECIFIED SEVERITY SNOMED Code(s): 93408373
--- NOTE | 2020-04-26 15:21 | CDI ---
Documentation Clarification Form Date: 04/26/2020 02:54:14 PM From: Katrina Hendrickson RN CCDS Admit Date: 04/24/2020 07:18:00 PM Patient Name: Jean Contreras Visit Number: [id number] Discharge Date: ATTENTION: The Clinical Documentation Specialists (CDI) and [facility] Coding Staff appreciate your assistance in clarifying documentation. Please respond to the clarification below the line at the bottom and electronically sign. The CDI & [facility] Coding staff will review the response and follow-up if needed. Please note: Queries are made part of the Legal Health Record. If you have any questions, please contact the author of this message via ITS. Dr. Adams Abraham Chronic CHF, EF currently unknown. Is documented in the H&P 2/ History/Risk Factors: 80-year-old male presents to the ED from subacute rehab for worsening shortness of breath. Medical history: Atrial Fib, Heart Failure, IN and HTN. Clinical Indicators: Home Medications: Lasix 40mg PO Daily and Lopressor 12.5mg PO BID VS/Pulse OX: B/P 127/73; HR 107; Temp 102.0 F Axillary; RR 24; Spo2 85% room air BNP 04/24: 3730 Echocardiogram Results 11/23/19: EF between 55-60%, mild mitral regurgitation, moderate tricuspid regurgitation present, mild aortic valve sclerosis, moderate to severe pulmonary hypertension. Chest X Ray04/24: Pulmonary congestion and pulmonary infiltrates increased compared to recent exam. Treatment: 2/2 Lopressor 12.5mg PO BID In your professional opinion, can you please clarify the acuity and type of CHF if known? Chronic Diastolic Heart Failure Unable to Determine Other, please specify on DCS possible mild component of chf, systolic dysfunction ef 45/50%, on DCS chornic diastolic chf. 04/28/2020 by ELHAM Ambrocio (Last Revision: June 2017) HEVER
[2020-04-26] MEDS: CALCIUM CARBONATE 500 MG CHEWABLE PO SCH ×2 (17:52→18:01)
[2020-04-26] MEDS: ASCORBIC ACID 500 MG TAB PO SCH ×2 (17:52→18:01)
[2020-04-26] MEDS: CYANOCOBALAMIN 500 MCG TAB PO SCH ×2 (17:52→18:01)
[2020-04-26] MEDS: CHOLECALCIFEROL 25 MCG (1000 IU) TABLET PO SCH ×2 (17:52→18:01)
[2020-04-26] MEDS: MULTIVITAMINS, THERA 1 EACH TAB PO SCH ×2 (17:52→18:01)
[2020-04-26] MEDS: ATORVASTATIN 40 MG TAB PO SCH (22:25)
[2020-04-26] MEDS: QUEtiapine 25 MG TAB PO SCH (22:25)
[2020-04-26] MEDS: DOCUSATE 100 MG CAP PO SCH (22:25)
--- NOTE | 2020-04-26 22:34 | PN ---
PROGRESS NOTE DATE OF SERVICE: 02/23/2021 REASON FOR FOLLOWUP: 1. Catheter-associated urinary tract infection. 2. Sacral pressure ulcer. INTERVAL HISTORY: The patient is currently afebrile, has been breathing comfortably. The patient denies having any chest pain or shortness of breath. Occasional cough. No abdominal pain or diarrhea. Bowman catheter was supposed to be changed; has not been done. PHYSICAL EXAMINATION: Blood pressure 124/70 with a pulse of 120, temperature 100.2. He is 96% on 5 L nasal cannula. General description is an elderly male lying in bed in no distress. RESPIRATORY SYSTEM: Unlabored breathing with decreased breath sounds at the base. No wheeze. HEART: S1, S2. Regular rate and rhythm. ABDOMEN: Soft. No tenderness. LABS: Hemoglobin 7.9, white count 6.4. BUN of 26, creatinine 0.48. DIAGNOSTIC IMPRESSION AND PLAN: Patient admitted to hospital with a fever concerning likely for a catheter-associated urinary tract infection. Bowman has to be changed plus/minus component of pneumonia and sacral pressure ulcer. The patient is covered with Zosyn while waiting for the culture to finalize. Await surgical debridement tomorrow and monitor his clinical course closely. MMODL / IJN: [id number] /
[2020-04-27] MEDS ORDERED: VANCOMYCIN TROUGH DUE 1 EACH MISC MISCELLANE ONE (05:00)
[2020-04-27 05:58] LABS: Anisocytosis Slight; Basophils % (A) 0 %; Eosinophils # (A) 0.1 k/uL (0-0.7); Eosinophils % (A) 2 %; HCT 22.5 % (39.0-53.0); HGB 7.4 gm/dL (13.0-17.5); Hypochromasia Marked; Lymphocytes # (A) 0.8 k/uL (1.0-4.8); Lymphocytes % (A) 15 %; MCH 28.4 pg (25.0-35.0); Mean Platelet Volume 8.7; Monocytes # (A) 0.5 k/uL (0-1.0); Monocytes % (A) 9 %; Neutrophils # (A) 3.9 k/uL (1.3-7.7); Neutrophils % (A) 71 %; Platelet Count 110 k/uL (150-450); RBC 2.62 m/uL (4.30-5.90); RDW 17.9 % (11.5-15.5); WBC 5.5 k/uL (3.8-10.6)
[2020-04-27] MEDS: COLLAGENASE 250 UNIT/GM OINTMENT 30 GM TUBE TOPICAL SCH ×2 (06:10→18:16)
[2020-04-27 06:12] LABS: African American GFR (CKD) >90 (>60 ml/min/1.73 sqM); Anion Gap 0 mmol/L; Blood Urea Nitrogen 22 mg/dL (9-20); Calcium 7.9 mg/dL (8.4-10.2); Carbon Dioxide 32 mmol/L (22-30); Chloride 110 mmol/L (98-107); Glucose 124 mg/dL (74-99); Non-African American GFR(CKD) >90 (>60 ml/min/1.73 sqM); Potassium 3.3 mmol/L (3.5-5.1); Sodium 142 mmol/L (137-145)
[2020-04-27] MEDS ORDERED: DEXAMETHASONE SOD PHOSPHATE 4 MG/ML 1 ML VIAL IV ONE (06:13)
[2020-04-27] MEDS ORDERED: LIDOCAINE 1% (10MG/ML) FOR IV START INTRADERMA PRN (06:13)
[2020-04-27] MEDS ORDERED: ONDANSETRON 4 MG/2 ML VIAL IVP ONE (06:13)
[2020-04-27] MEDS ORDERED: MIDAZOLAM 2 MG/2 ML VIAL IV PRN (06:13)
[2020-04-27] MEDS: VANCOMYCIN 1,250 MG in SODIUM CHLORIDE 0.9% 250 ML IVPB SCH (06:27)
[2020-04-27] MEDS: LACTATED RINGERS 1,000 ML IV SCH (06:55)
[2020-04-27] MEDS ORDERED: HYDROmorphone 0.5 MG/0.5 ML SYRINGE IVP PRN (07:00)
[2020-04-27] MEDS: ALBUTEROL HFA INHALER INHALATION SCH ×4 (08:05→20:41)
[2020-04-27] MEDS: TIOTROPIUM 2.5 MCG INHALER INHALATION SCH (08:06)
[2020-04-27] MEDS: SYMBICORT 80-4.5 MCG INHALER INHALATION SCH ×2 (08:06→20:41)
--- NOTE | 2020-04-27 09:45 | ECHOF ---
Referral Reason:LV FX MEASUREMENTS -------- HEIGHT: 175.3 cm WEIGHT: 63.5 kg BP: RVIDd: 4.1 cm (< 3.3) IVSd: 1.2 cm (0.6 - 1.1) LVIDd: 4.9 cm (3.9 - 5.3) LVPWd: 1.0 cm (0.6 - 1.1) IVSs: 1.6 cm LVIDs: 2.9 cm LVPWs: 1.5 cm LA Diam: 5.0 cm (2.7 - 3.8) LAESV Index (A-L): 57.26 ml/m Ao Diam: 3.1 cm (2.0 - 3.7) AV Cusp: 1.9 cm (1.5 - 2.6) LA Diam: 4.1 cm (2.7 - 3.8) MV EXCURSION: 23.012 mm (> 18.000) MV EF SLOPE: 134 mm/s (70 - 150) EPSS: 0.9 cm RAP: 5.00 mmHg RVSP: 58.87 mmHg FINDINGS -------- Atrial fibrillation. Pt is positive for Covid. The left ventricular size is normal. There is borderline concentric left ventricular hypertrophy. Overall left ventricular systolic function is mildly impaired with, an EF between 45 - 50 %. . It is very difficult to assess the LV function, because of tachycaria. There is atypical motion of th e septum related to bundle branch block. The right ventricle is moderate to severely enlarged. LA is severely dilated >40 ml/m2 The right atrial size is normal. The aortic valve is trileaflet, and appears structurally normal. No aortic stenosis or regurgitation. Mild mitral annular calcification present. Fpryvdmw-df-avnnpb mitral regurgitation is present. Ixus-rb-tuxtfxzz tricuspid regurgitation present. There is moderate pulmonary hypertension. The r ight ventricular systolic pressure, as measured by Doppler, is 58.87mmHg. There is no pulmonic regurgitation present. The aortic root size is normal. There is no pericardial effusion. CONCLUSIONS -------- 1. Pt is positive for Covid. 2. The left ventricular size is normal. 3. There is borderline concentric left ventricular hypertrophy. 4. Overall left ventricular systolic function is mildly impaired with, an EF between 45 - 50 %. 5. . It is very difficult to assess the LV function, because of tachycaria. There is atypical riley on of the septum related to bundle branch block. 6. The right ventricle is moderate to severely enlarged. 7. LA is severely dilated >40 ml/m2 8. The right atrial size is normal. 9. Mild mitral annular calcification present. 10. Uxeiezco-vt-cazvef mitral regurgitation is present. 11. Ikoq-xb-srphsugh tricuspid regurgitation present. 12. There is moderate pulmonary hypertension. 13. The right ventricular systolic pressure, as measured by Doppler, is 58.87mmHg. 14. There is no pulmonic regurgitation present. 15. The aortic root size is normal. 16. There is no pericardial effusion. ALGOLOGY TEACHER: Quiana Herron RDCS
[2020-04-27] MEDS: GABAPENTIN 300 MG CAP PO SCH ×2 (10:00→18:14)
[2020-04-27] MEDS: METOPROLOL TARTRATE 12.5 MG TAB PO SCH ×2 (10:01→18:14)
[2020-04-27] MEDS: CEFEPIME 2 GM in SODIUM CHLORIDE 0.9% 100 ML IVPB SCH ×2 (10:01→20:46)
[2020-04-27] MEDS: ZINC SULFATE 220 MG CAP PO SCH (10:01)
[2020-04-27] MEDS: FAMOTIDINE 20 MG TAB PO SCH ×2 (10:01→18:14)
[2020-04-27] MEDS ORDERED: Potassium Replacement Protocol 1 EACH MISC MISCELLANE PRN (13:54)
[2020-04-27] MEDS ORDERED: Magnesium Replacement Protocol 1 EACH MISC MISCELLANE PRN (13:56)
--- NOTE | 2020-04-27 13:58 | P.CNPUL ---
History of Present Illness Consult date: 04/27/20 Requesting physician: Adams Abraham Reason for consult: cough, COPD, pneumonia, abnormal CXR/CT, other Chief complaint: Shortness of breath. History of present illness: Pulmonary consult dated 04/27/2020. 80-year-old male, well-known to our service. The patient has history of chronic atrial fibrillation, severe COPD, with an FEV1 that is 35% of predicted, and chronic wounds of the lower extremities. The patient was sent in to be evaluated from [facility]. The patient was recently inpatient, and we saw the patient at that time. 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 We were asked to see the patient because there were some plans on possible surgical debridement of his wounds. I do long discussion with the daughter, Gabby, the surgeon, and the . It was agreed that the patient would not be a particularly good candidate for anything surgical, and likely, given his chronic medical history, would not survive any procedures. Further discussions with the daughter and the led to the conclusion that the patient should be hospice patient. I passed th, at onto the surgeon. The patient himself was very agitated, and was yelling that he wanted somebody to take him out back and she would him. The patient's major complaints include profound weakness, some shortness of breath, and chronic pain. He has a left heel wound which is healing, and the pretty significant stage III sacral wound. The patient also has a recent history of COVID 19 infection. He again tested positive for COVID 19 infection on this admission, and initially tested positive back on April 03. Currently, his temperature is 97.9, heart rate 118, respiratory rate 20, pressure 107/58, and 4 L saturation 96%. Review of Systems REVIEW OF SYSTEMS: CONSTITUTIONAL: Weakness and pain. NEUROLOGIC: [ Negative.] HEENT: [ Negative.] CARDIAC: [Negative.] PULMONARY: Shortness of breath. GI: [Negative.] : [Negative.] RHEUMATOLOGIC: [ Negative.] IMMUNOLOGIC: [ Negative.] ENDOCRINE: [Negative. ] DERMATOLOGIC: Chronic infected wounds. Past Medical History Past Medical History: Atrial Fibrillation, Heart Failure, COPD, Hypertension, Myocardial Infarction (OK), Musculoskeletal Disorder, Osteoarthritis (OA), Pneumonia, Thyroid Disorder Additional Past Medical History / Comment(s): left breast mass HX OF COLON POLYPS. HX RIGHT BREAST MASS. O2 AT 2L NC @HS AND PRN. Hx Aspiration Pneumonia R/T "FLAPPER." HX OF THYROID PROBLEM - NO TX NOW. CHRONIC BACK PAIN, JAIME LEG NT. RT FOOT/ANKLE EDEMA, WEARS TEDS. JAIME CTS Last Myocardial Infarction Date:: 1987 History of Any Multi-Drug Resistant Organisms: MRSA Date of last positivie culture/infection: MRSA 03/19/20 MDRO Source:: Foot Past Surgical History: Back Surgery, Coronary Bypass/CABG, Joint Replacement, Orthopedic Surgery Additional Past Surgical History / Comment(s): left carpel tunnel, CARPAL TUNNEL RIGHT x 2. CABG 1987 X2. JAIME SCOPES KNEES. Jaime Hip Replacement, Nicholas Fundoplicaton. Rt Shoulder Rotator Cuff. BACK X2. HX OF EPIDURALS FOR PAIN. Past Anesthesia/Blood Transfusion Reactions: No Reported Reaction Past Psychological History: No Psychological Hx Reported Smoking Status: Former smoker Past Alcohol Use History: None Reported Past Drug Use History: None Reported - Past Family History Daughter(s) Family Medical History: Cancer Father History Unknown: Yes Mother Family Medical History: No Reported History Medications and Allergies Home Medications Medication Instructions Recorded Confirmed Type Rivaroxaban [Xarelto] 20 mg PO DAILY@0900 08/06/13 04/24/20 History Furosemide 40 mg PO DAILY@0900 08/09/13 04/24/20 History Fluticasone/Salmeterol [Advair 1 puff INHALATION RT-BID@0900,2100 08/18/14 04/24/20 History 250-50 Diskus] Tiotropium 18 Mcg/Puff [Spiriva] 1 cap INHALATION RT-DAILY 08/18/14 04/24/20 History Atorvastatin [Lipitor] 40 mg PO HS@2100 01/20/18 04/24/20 History Multivitamin [Men's Multi-Vitamin] 1 tab PO DAILY@1700 01/20/18 04/24/20 History Albuterol Sulfate [Ventolin HFA] 2 puff INHALATION RT-Q6H PRN 11/22/19 04/24/20 History Ipratropium-Albuterol Nebulize 3 ml INHALATION RT-QID 11/22/19 04/24/20 History [Duoneb 0.5 mg-3 mg/3 ml Soln] Acetaminophen Tab [Tylenol] 650 mg PO Q6HR PRN tab 01/11/20 04/24/20 Rx Ascorbic Acid [Vitamin C] 1,000 mg PO DAILY@1800 03/19/20 04/24/20 History Calcium Carbonate [Calcium] 600 mg PO DAILY@1800 03/19/20 04/24/20 History Cholecalciferol [Vitamin D3 (25 1,000 unit PO DAILY@1800 03/19/20 04/24/20 History Mcg = 1000 Iu)] Cyanocobalamin (Vitamin B-12) 1,000 mcg PO DAILY@1800 03/19/20 04/24/20 History [Vitamin B-12] Famotidine [Pepcid] 20 mg PO BID@0900,1800 04/02/20 04/24/20 History Metoprolol Tartrate [Lopressor] 12.5 mg PO BID@0900,1800 04/02/20 04/24/20 History Collagenase [Santyl] 1 applic TOPICAL Q12H 04/24/20 04/24/20 History Docusate [Colace] 100 mg PO HS@209904/24/20 04/24/20 History Gabapentin 600 mg PO BID@0900,1800 04/24/20 04/24/20 History Ibuprofen [Motrin] 400 mg PO Q6HR PRN 04/24/20 04/24/20 History Lactose-Reduced Food [Ensure Plus] 1 can PO BID@1000,1500 04/24/20 04/24/20 History Methyl Salicylate/Menthol 1 patch TOPICAL DAILY@0600 04/24/20 04/24/20 History [Salonpas Patch] Moxifloxacin HCl [Avelox] 400 mg PO DAILY@0900 04/24/20 04/24/20 History Prostat Awc 30 ml PO BID@0900,2100 04/24/20 04/24/20 History Zinc 50 mg PO DAILY@0900 04/24/20 04/24/20 History oxyCODONE HCL/ACETAMINOPHEN 1 tab PO Q6H PRN 04/24/20 04/24/20 History [Percocet 10-325 mg] Allergies Allergy/AdvReac Type Severity Reaction Status Date / Time No Known Allergies Allergy Verified 04/24/20 16:44 Physical Exam Osteopathic Statement: *. No significant issues noted on an osteopathic structural exam other than those noted in the History and Physical/Consult. Vitals: Vital Signs Temp Pulse Resp BP Pulse Ox 04/27/20 08:00 98.9 F 113 H 16 109/64 97 04/27/20 03:40 98.7 F 121 H 20 109/65 97 04/26/20 23:20 99 F 113 H 19 106/56 96 04/26/20 21:30 100.6 F H 04/26/20 20:18 98.5 F 114 H 20 105/58 95 04/26/20 16:54 100.2 F H 120 H 18 124/70 96 04/26/20 15:00 114 H 18 04/26/20 13:50 114 H 18 102/45 96 Intake and Output 04/26/20 04/27/20 04/27/20 22:59 06:59 14:59 Intake Total 180 Output Total 800 400 Balance -620 -400 Intake: Oral 180 Output: Urine 800 400 Other: Voiding Method Indwelling Catheter Indwelling Catheter Indwelling Catheter # Voids 1 # Bowel Movements 1 1 Weight 73.5 kg No acute distress, oriented 3. Currently on nasal O2 at 4 L. No obvious respiratory distress. HEENT examination is grossly unremarkable. Mucous membranes are moist. Neck supple. Full range of motion. No adenopathy thyromegaly or neck vein distention. Cardiovascular examination reveals an irregular rhythm and rate. S1-S2 normal. No S3 or S4. No discernible murmur noted. Heart sounds are distant. Heart rate 118. Lungs reveal scattered bilateral rhonchi and crackles. Breath sounds equal. The patient does not take deep breaths. No wheezes. Abdomen soft bowel sounds are heard. No masses or tenderness. Extremities are intact. No cyanosis clubbing or edema. Skin is without rash. Wounds not evaluated. Neurologic examination is brief but nonfocal. Results - Laboratory Findings CBC and BMP: 04/27/20 05:39 04/27/20 05:39 PT/INR, D-dimer PT 17.7 sec (9.0-12.0) H 04/24/20 17:04 INR 1.8 (<1.2) H 04/24/20 17:04 Abnormal lab findings: Abnormal Labs 04/24/20 04/24/20 04/24/20 17:04 17:04 17:04 RBC 2.90 L Hgb 7.7 L Hct 24.6 L MCHC RDW 18.1 H Plt Count 100 L Lymphocytes # 0.8 L ESR PT INR APTT Potassium Chloride Carbon Dioxide 33 H BUN 34 H Creatinine Glucose 124 H POC Glucose (mg/dL) Calcium 7.9 L Creatine Kinase <20 L C-Reactive Protein Total Protein 5.4 L Albumin 2.5 L Procalcitonin Urine Protein 1+ H Urine Blood Small H Ur Leukocyte Esterase Large H Urine RBC 30 H Urine WBC 30 H Urine WBC Clumps Rare H Urine Bacteria Rare H Urine Yeast (Budding) Many H Coronavirus (PCR) 04/24/20 04/24/20 04/24/20 17:04 17:04 17:04 RBC Hgb Hct MCHC RDW Plt Count Lymphocytes # ESR PT 17.7 H INR 1.8 H APTT 37.5 H Potassium Chloride Carbon Dioxide BUN Creatinine Glucose POC Glucose (mg/dL) Calcium Creatine Kinase C-Reactive Protein Total Protein Albumin Procalcitonin 0.26 H Urine Protein Urine Blood Ur Leukocyte Esterase Urine RBC Urine WBC Urine WBC Clumps Urine Bacteria Urine Yeast (Budding) Coronavirus (PCR) Detected A 04/24/20 04/25/20 04/25/20 17:30 08:26 08:26 RBC 3.21 L Hgb 8.5 L Hct 27.9 L MCHC 30.3 L RDW 17.3 H Plt Count 113 L Lymphocytes # 0.5 L ESR PT INR APTT Potassium Chloride Carbon Dioxide 32 H BUN 31 H Creatinine 0.62 L Glucose 133 H POC Glucose (mg/dL) 125 H Calcium 8.1 L Creatine Kinase C-Reactive Protein Total Protein Albumin Procalcitonin Urine Protein Urine Blood Ur Leukocyte Esterase Urine RBC Urine WBC Urine WBC Clumps Urine Bacteria Urine Yeast (Budding) Coronavirus (PCR) 04/26/20 04/26/20 04/26/20 07:55 07:55 07:55 RBC 2.89 L Hgb 7.9 L Hct 25.0 L MCHC RDW 17.5 H Plt Count 104 L Lymphocytes # 0.7 L ESR 90 H PT INR APTT Potassium Chloride Carbon Dioxide BUN 26 H Creatinine 0.48 L Glucose POC Glucose (mg/dL) Calcium 8.2 L Creatine Kinase C-Reactive Protein 173.6 H Total Protein Albumin Procalcitonin 0.13 H Urine Protein Urine Blood Ur Leukocyte Esterase Urine RBC Urine WBC Urine WBC Clumps Urine Bacteria Urine Yeast (Budding) Coronavirus (PCR) 04/27/20 04/27/20 05:39 05:39 RBC 2.62 L Hgb 7.4 L Hct 22.5 L MCHC RDW 17.9 H Plt Count 110 L Lymphocytes # 0.8 L ESR PT INR APTT Potassium 3.3 L Chloride 110 H Carbon Dioxide 32 H BUN 22 H Creatinine 0.60 L Glucose 124 H POC Glucose (mg/dL) Calcium 7.9 L Creatine Kinase C-Reactive Protein Total Protein Albumin Procalcitonin Urine Protein Urine Blood Ur Leukocyte Esterase Urine RBC Urine WBC Urine WBC Clumps Urine Bacteria Urine Yeast (Budding) Coronavirus (PCR) - Diagnostic Findings Chest x-ray: image reviewed Assessment and Plan Assessment: Recent history of COVID 19 pneumonia, with acute on chronic hypoxemic respiratory failure in a patient with stage III/severe COPD. History of stage III COPD, with an FEV1 that is 35% of predicted. History of chronic infection/sepsis, Pseudomonas, and methicillin-resistant staph aureus bacteria. 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 History of chronic urinary tract infection. History of chronic atrial fibrillation. History of essential hypertension. History of myocardial infarction, 1987. History of osteoarthritis. History of aspiration pneumonia. History of hypothyroidism. History of colonic polyps. Chronic hypoxemic respiratory failure. History of chronic back pain. History of solitary pulmonary nodule, RLL. Plan: Plan dated 04/27/2020. I had a conversation with the surgeon about the procedure that he was planning. I thought the patient was at high risk for any surgical procedure at this time. I also discussed this with the and the daughter Gabby. They agree to make the patient hospice. They did want to stop up and see the patient as they've not seen him since March 19. I made sure the nurse to this and that the nurs e would call them back. Medications are reviewed. Labs are reviewed. Prognosis is poor. The patient was verbalizing the fact that he just wanted to be left alone to . I passed out onto the family as well. Time with Patient: Greater than 30
--- NOTE | 2020-04-27 14:21 | P.PN ---
Subjective Progress Note Date: 04/27/20 This is an 80-year-old gentleman from subacute rehab ,recently admitted with acute COvid Pneumonia, sepsis, pseudomonas aeruginosa pneumonia and MRSA with pseudomonas aeruginosa of chronic right foot wound and sacral pressure ulcer and multiple other medical issues, re-admitted to hospital with worsening shortness of breath, fevers, 1O2 on admission, currently T-max 99.7, normal WBC, retested for coronavirus-reporting positive, influenza A/B not detected, acute respiratory failure, 85% on room air, requiring 4 L nasal cannula O2 to maintain O2 sats in the 90s , previously discharged on 2 L nasal cannula, mild tachycardia. Borderline hypotension on admission, systolic blood pressure currently in the 130s. Hemoglobin/platelets on admission 7.7/100, currently up to 8.5, 113, INR 1.8. Sodium 142, potassium 3.9, BUN 31, creatinine 0.62 blood sugars ranging 120s to 130s, lactic acid 1, calcium 8.1, albumin 2.5, pro- calcitonin 0.26. UA negative for nitrates, large leukocytes, 30 urine WBCs with rare WBC clumps and rare bacteria. Negative for C. difficile. Chest x-ray reporting pulmonary congestion and pulmonary infiltrates increased compared to recent exam consistent with CHF / patchy pneumonia. BNP 3730 EKG atrial fibrillation with right bundle branch block, troponin 0.013. Denies chest pain, palpitations. Denies nausea vomiting or abdominal pain. Received IV fluid hydration in the ER. Infectious disease consulted, Zosyn initiated. 04/26/2020 NPO with the exception of free water and ice chips, scheduled for MBS this a.m. Maintained on aspiration precautions. Evaluated by surgery,recommending surgical debridement of sacral wound , holding Xarelto. Preliminary blood cultures reporting coagulase-negative staph, mecA detected. Continues on cefepime and vancomycin. T-max 100, normal WBC. Yesterday afternoon developed some mild confusion with some visual hallucinations, pulled out his IV. Seroquel added to med regimen and patient had a good night. Feels better this morning. Oxygen requirements worsened, requiring 6 L nasal cannula O2 to maintain O2 sats of 88%, tachycardic, hemoglobin 7.9, platelets 104, BUN 26, creatinine 0.48. Chest x-ray ordered. 04/27/2020 NPO,anticoagulation on hold,scheduled for surgical debridement. Afebrile, maintained on IV antibiotics as per ID cefepime, vancomycin. Creatinine 0.6. Repeat preliminary blood cultures of 04/25 to reporting no growth T-max 100.6, normal WBC. Hemoglobin 7.4, platelets 110, potassium 3.3.Pulmonary consult in place, recommendations pending. Oxygen has been weaned down to 4 L, maintaining O2 sats in the 90s. I could reported mildly impaired LV function, 45-50%, right ventricle moderate to severely enlarged, LA severely dilated, moderate to severe mitral regurgitation, [id number] tricuspid regurgitation, moderate pulmonary hypertension. Objective - Vital Signs Vital signs: Vital Signs Temp 98.7 F 04/27/20 03:40 Pulse 121 H 04/27/20 03:40 Resp 20 04/27/20 03:40 BP 109/65 04/27/20 03:40 Pulse Ox 97 04/27/20 03:40 Intake & Output 04/26/20 04/27/20 04/27/20 18:59 06:59 18:59 Intake Total 450 Output Total 1400 400 Balance -950 -400 Weight 73 kg 73.5 kg Intake: Oral 450 Output: Urine 1400 400 Other: Voiding Method Indwelling Catheter Indwelling Catheter # Voids 1 # Bowel Movements 1 1 - Exam PHYSICAL EXAM: VITAL SIGNS: As above GENERAL: Lying in bed, no acute distress. HEENT: Conjunctivae normal. eyes normal. NECK: No JVD. No thyroid enlargement. No LNs CARDIOVASCULAR: S1, S2, irregular. No murmur RESPIRATION: Breath sounds diminished in the bases. Marginally diminished expiratory wheezing. ABDOMEN: Soft, nontender . No guarding. no masses palpable. Positive Bowel sounds. LEGS: No edema. no swelling PSYCHIATRY: Alert and oriented X3, mood and affect normal. NERVOUS SYSTEM: Cranial N 2-12 grossly normal. Moves all 4 limbs. Diffuse weakness, No focal deficits. Strength and sensation grossly intact.. Skin: Right foot dressing clean dry and intact-(stage II), left medial calcaneus (unstageable), chronic (stage III )sacral pressure ulcer dressing clean dry and intact. - Labs CBC & Chem 7: 04/27/20 05:39 04/27/20 05:39 Labs: Abnormal Lab Results - Last 24 Hours (Table) 04/26/20 04/26/20 04/26/20 Range/Units 07:55 07:55 07:55 RBC (4.30-5.90) m/uL Hgb (13.0-17.5) gm/dL Hct (39.0-53.0) % RDW (11.5-15.5) % Plt Count (150-450) k/uL Lymphocytes # (1.0-4.8) k/uL ESR 90 H (0-15) mm/hr Potassium (3.5-5.1) mmol/L Chloride (98-107) mmol/L Carbon Dioxide (22-30) mmol/L BUN 26 H (9-20) mg/dL Creatinine 0.48 L (0.66-1.25) mg/dL Glucose (74-99) mg/dL Calcium 8.2 L (8.4-10.2) mg/dL C-Reactive Protein 173.6 H (<10.0) mg/L Procalcitonin 0.13 H (0.02-0.09) ng/mL 04/27/20 04/27/20 Range/Units 05:39 05:39 RBC 2.62 L (4.30-5.90) m/uL Hgb 7.4 L (13.0-17.5) gm/dL Hct 22.5 L (39.0-53.0) % RDW 17.9 H (11.5-15.5) % Plt Count 110 L (150-450) k/uL Lymphocytes # 0.8 L (1.0-4.8) k/uL ESR (0-15) mm/hr Potassium 3.3 L (3.5-5.1) mmol/L Chloride 110 H (98-107) mmol/L Carbon Dioxide 32 H (22-30) mmol/L BUN 22 H (9-20) mg/dL Creatinine 0.60 L (0.66-1.25) mg/dL Glucose 124 H (74-99) mg/dL Calcium 7.9 L (8.4-10.2) mg/dL C-Reactive Protein (<10.0) mg/L Procalcitonin (0.02-0.09) ng/mL Microbiology - Last 24 Hours (Table) 04/24/20 17:04 Blood Culture - Preliminary Blood No Growth after 48 hours 04/25/20 16:49 Blood Culture - Preliminary Blood No Growth after 24 hours 04/24/20 17:04 Blood Culture Gram Stain - Preliminary Blood Blood Culture - Preliminary Coagulase Negative Staph 04/24/20 17:04 Blood Culture - Final Blood Assessment and Plan Assessment: Sepsis secondary to multiple wounds-chronic right malleolus wound -stage II, left medial calcaneus unstageable chronic stage III sacral pressure ulcer, healthcare acquired pneumonia, subacute Covid, possible bacteremia-preliminary cultures reporting coagulase-negative staph. Acute on chronic hypoxic respiratory failure secondary to the above, in a patient with severe COPD, possible mild component of CHF, systolic dysfunction, EF 45-50%. Moderate to severe mitral regurgitation [id number] tricuspid regurgitation Moderate pulmonary hypertension Recent Covid pneumonia, treated with Remedesivir Recent Sepsis secondary to pseudomonas aeruginosa pneumonia and MRSA with pseudomonas aeruginosa of chronic right malleolus wound -stage II, left medial calcaneus unstageable chronic stage III sacral pressure ulcer. Altered mental status, acute metabolic encephalopathy multifactorial, secondary to all the above History of Bilateral lung nodules, outpatient PET scan with pulmonary recommended History of Possible mass at the GE junction, however EGD reported no apparent mass,small paraesophageal hernia, presbyesophagus, mild gastritis. History of Sujit fundoplication CAD, history of [place], CABG Chronic atrial fibrillation, anticoagulated with Xarelto Chronic CHF, EF 45-50%, systolic dysfunction Hypertension Hypothyroidism Degenerative joint disease Chronic back pain History of nicotine dependence Chronic anemia Plan: Continue on current medication regime ,monitoring and symptomatic treatment. Antibiotics as per ID .Xarelto on hold for surgical debridement. Pulmonary consult in place, recommendations pending. Prognosis guarded given multiple complex medical issues. The impression and plan of care has been dictated as directed. : I performed a history and examination of this patient, discussed the same with the dictator. I agree with the dictator's note ,documented as a scribe. Any additional findings or plans will be noted.
--- NOTE | 2020-04-27 15:12 | PN ---
PROGRESS NOTE DATE OF SERVICE: 04/27/2020 REASON FOR FOLLOWUP: Catheter associated urinary tract infection, question pneumonia and sacral pressure ulcer. INTERVAL HISTORY: The patient is currently afebrile. Patient is breathing comfortably. Seems to be slightly upset related to his debridement of the sacral wound. No chest pain. He did have some cough, not bringing up sputum. No abdominal pain or diarrhea. PHYSICAL EXAMINATION: Blood pressure 109/64 with pulse of 113, temperature 98.9. He is 97% on 4 L nasal cannula. General description is an elderly male lying in bed in no distress. RESPIRATORY SYSTEM: Unlabored breathing, clear to auscultation anteriorly. HEART: S1, S2. Regular. ABDOMEN: Soft, no tenderness. LABS: Hemoglobin 7.4, white count 5.5, BUN of 22, creatinine 0.60. DIAGNOSTIC IMPRESSION AND PLAN: 1. Patient with admission to the hospital with fever, concerning for a catheter- associated urinary tract infection. Unfortunately, urine culture was not done even though ordered. The patient did have a positive UA. Bowman has been changed. Culture will be repeated. Keep the patient on cefepime. 2. Positive blood culture with Coagulase negative Staphylococcus, skin contaminant. If repeat culture negative, vancomycin will be discontinued. 3. Will await for the sacral wound debridement as well. MMODL / IJN: [id number] /
[2020-04-27] MEDS: ASCORBIC ACID 500 MG TAB PO SCH (18:13)
[2020-04-27] MEDS: CYANOCOBALAMIN 500 MCG TAB PO SCH (18:13)
[2020-04-27] MEDS: MULTIVITAMINS, THERA 1 EACH TAB PO SCH (18:14)
[2020-04-27] MEDS: CALCIUM CARBONATE 500 MG CHEWABLE PO SCH (18:14)
[2020-04-27] MEDS: CHOLECALCIFEROL 25 MCG (1000 IU) TABLET PO SCH (18:14)
[2020-04-27] MEDS: VANCOMYCIN 1,500 MG in SODIUM CHLORIDE 0.9% 250 ML IVPB SCH (18:14)
[2020-04-27 19:55] LABS: Appearance,Urine Turbid (Clear); Bacteria,Urine Few /hpf; Bilirubin,Urine Negative (Negative); Blood,Urine Trace (Negative); Budding Yeast,Urine Many /hpf; Color,Urine Yellow; Glucose,Urine (UA) Negative (Negative); Ketones,Urine Negative (Negative); Leukocyte Esterase,Urine Large (Negative); Mucus,Urine Few /hpf; Nitrite,Urine Negative (Negative); PH, Urine 5.5 (5.0-8.0); Protein,Urine 1+ (Negative); RBC,Urine 10 /hpf (0-5); Specific Gravity,Urine 1.021 (1.001-1.035); Squamous Epithelial Cell,Urine 1 /hpf (0-4); Urobilinogen,Urine <2.0 mg/dL (<2.0); WBC,Urine >182 /hpf (0-5)
[2020-04-27] MEDS: ATORVASTATIN 40 MG TAB PO SCH (20:46)
[2020-04-27] MEDS: DOCUSATE 100 MG CAP PO SCH (20:46)
[2020-04-27] MEDS: QUEtiapine 25 MG TAB PO SCH (20:46)
[2020-04-27] MEDS: oxyCODONE-APAP 10-325MG 1 EACH TAB PO PRN (21:29)
[2020-04-28] MEDS: COLLAGENASE 250 UNIT/GM OINTMENT 30 GM TUBE TOPICAL SCH ×2 (01:14→18:02)
[2020-04-28] MEDS: LACTATED RINGERS 1,000 ML IV SCH (03:35)
[2020-04-28] MEDS: VANCOMYCIN 1,500 MG in SODIUM CHLORIDE 0.9% 250 ML IVPB SCH ×2 (05:02→18:27)
[2020-04-28 07:54] LABS: African American GFR (CKD) >90 (>60 ml/min/1.73 sqM); Anion Gap 2 mmol/L; Blood Urea Nitrogen 19 mg/dL (9-20); Calcium 8.2 mg/dL (8.4-10.2); Carbon Dioxide 31 mmol/L (22-30); Chloride 111 mmol/L (98-107); Glucose 112 mg/dL (74-99); Magnesium 1.9 mg/dL (1.6-2.3); Non-African American GFR(CKD) >90 (>60 ml/min/1.73 sqM); Potassium 3.6 mmol/L (3.5-5.1); Sodium 144 mmol/L (137-145)
[2020-04-28] MEDS: ALBUTEROL HFA INHALER INHALATION SCH ×5 (07:56→20:03)
[2020-04-28] MEDS: TIOTROPIUM 2.5 MCG INHALER INHALATION SCH (07:56)
[2020-04-28] MEDS: SYMBICORT 80-4.5 MCG INHALER INHALATION SCH ×2 (07:56→20:03)
[2020-04-28 08:11] LABS: Anisocytosis Slight; Basophils % (A) 0 %; Eosinophils # (A) 0.2 k/uL (0-0.7); Eosinophils % (A) 2 %; HGB 7.1 gm/dL (13.0-17.5); Hypochromasia Marked; Lymphocytes % (A) 13 %; MCH 26.1 pg (25.0-35.0); MCHC 29.8 g/dL (31.0-37.0); MCV 87.5 fL (80.0-100.0); Mean Platelet Volume 7.3; Monocytes # (A) 0.6 k/uL (0-1.0); Monocytes % (A) 8 %; Neutrophils # (A) 5.7 k/uL (1.3-7.7); Neutrophils % (A) 73 %; Platelet Count 141 k/uL (150-450); RBC 2.74 m/uL (4.30-5.90); RDW 17.2 % (11.5-15.5); WBC 7.7 k/uL (3.8-10.6)
[2020-04-28] MEDS: GABAPENTIN 300 MG CAP PO SCH ×2 (09:42→17:59)
[2020-04-28] MEDS: ZINC SULFATE 220 MG CAP PO SCH (09:43)
[2020-04-28] MEDS: CEFEPIME 2 GM in SODIUM CHLORIDE 0.9% 100 ML IVPB SCH ×2 (09:43→20:51)
[2020-04-28] MEDS: FAMOTIDINE 20 MG TAB PO SCH ×2 (09:43→18:01)
[2020-04-28] MEDS: METOPROLOL TARTRATE 12.5 MG TAB PO SCH ×2 (09:46→18:00)
--- NOTE | 2020-04-28 10:57 | P.DS ---
Providers Date of admission: 04/24/20 19:18 Expected date of discharge: 04/28/20 Attending physician: Adams Abraham Consults: 04/24/20 19:19 Consult Physician Urgent Consulting Provider: Niko Fontenot Consult Reason/Comments: acute pyrexia, covid pna, hcap Do you want consulting provider notified?: Yes 04/25/20 12:33 Consult Physician Routine Consulting Provider: Kian Montelongo Consult Reason/Comments: wound debridement Do you want consulting provider notified?: Yes 04/26/20 09:45 Consult Physician Routine Consulting Provider: Lorena Funes Consult Reason/Comments: pneumonia/chf Do you want consulting provider notified?: Yes Primary care physician: Adams Abraham Hospital Course: Final Diagnoses: Sepsis secondary to multiple wounds-chronic right malleolus wound -stage II, left medial calcaneus unstageable chronic stage III sacral pressure ulcer, healthcare acquired pneumonia, subacute Covid, possible bacteremia-preliminary cultures reporting coagulase-negative staph. Acute on chronic hypoxic respiratory failure secondary to the above, in a patient with severe COPD, possible mild component of CHF, systolic dysfunction, EF 45-50%. Moderate to severe mitral regurgitation [id number] tricuspid regurgitation Moderate pulmonary hypertension Recent Covid pneumonia, treated with Remedesivir Recent Sepsis secondary to pseudomonas aeruginosa pneumonia and MRSA with pseudomonas aeruginosa of chronic right malleolus wound -stage II, left medial calcaneus unstageable chronic stage III sacral pressure ulcer. Altered mental status, acute metabolic encephalopathy multifactorial, secondary to all the above History of Bilateral lung nodules, outpatient PET scan with pulmonary recommended History of Possible mass at the GE junction, however EGD reported no apparent mass,small paraesophageal hernia, presbyesophagus, mild gastritis. History of Sujit fundoplication CAD, history of MS, CABG Chronic atrial fibrillation, anticoagulated with Xarelto Chronic CHF, EF 45-50%, systolic dysfunction Hypertension Hypothyroidism Degenerative joint disease Chronic back pain History of nicotine dependence Chronic anemia Hospital course:This is an 80-year-old gentleman from subacute rehab ,recently admitted with acute COvid Pneumonia, sepsis, pseudomonas aeruginosa pneumonia and MRSA with pseudomonas aeruginosa of chronic right foot wound and sacral pressure ulcer and multiple other medical issues, re-admitted to hospital with worsening shortness of breath, fevers, 1O2 on admission, currently T-max 99.7, normal WBC, retested for coronavirus-reporting positive, influenza A/B not detected, acute respiratory failure, 85% on room air, requiring 4 L nasal cannula O2 to maintain O2 sats in the 90s , previously discharged on 2 L nasal cannula, mild tachycardia. Borderline hypotension on admission, systolic blood pressure currently in the 130s. Hemoglobin/platelets on admission 7.7/100, currently up to 8.5, 113, INR 1.8. Sodium 142, potassium 3.9, BUN 31, creatinine 0.62 blood sugars ranging 120s to 130s, lactic acid 1, calcium 8.1, albumin 2.5, pro-calcitonin 0.26. UA negative for nitrates, large leukocytes, 30 urine WBCs with rare WBC clumps and rare bacteria. Negative for C. difficile. Chest x-ray reporting pulmonary congestion and pulmonary infiltrates increased compared to recent exam consistent with CHF / patchy pneumonia. BNP 3730 EKG atrial fibrillation with right bundle branch block, troponin 0.013. Denies chest pain, palpitations. Denies nausea vomiting or abdominal pain. Received IV fluid hydration in the ER. Infectious disease consulted, Zosyn initiated. 04/26/2020 NPO with the exception of free water and ice chips, scheduled for MBS this a.m. Maintained on aspiration precautions. Evaluated by surgery,recommending surgical debridement of sacral wound , holding Xarelto. Preliminary blood cultures reporting coagulase-negative staph, mecA detected. Continues on cefepime and vancomycin. T-max 100, normal WBC. Yesterday afternoon developed some mild confusion with some visual hallucinations, pulled out his IV. Seroquel added to med regimen and patient had a good night. Feels better this morning. Oxygen requirements worsened, requiring 6 L nasal cannula O2 to maintain O2 sats of 88%, tachycardic, hemoglobin 7.9, platelets 104, BUN 26, creatinine 0.48. Chest x-ray ordered. 04/27/2020 NPO,anticoagulation on hold,scheduled for surgical debridement. Afebrile, maintained on IV antibiotics as per ID cefepime, vancomycin. Creatinine 0.6. Repeat preliminary blood cultures of 04/25 to reporting no froilan wth T-max 100.6, normal WBC. Hemoglobin 7.4, platelets 110, potassium 3.3.Pulmonary consult in place, recommendations pending. Oxygen has been weaned down to 4 L, maintaining O2 sats in the 90s. I could reported mildly impaired LV function, 45-50%, right ventricle moderate to severely enlarged, LA severely dilated, moderate to severe mitral regurgitation, [id number] tricuspid regurgitation, moderate pulmonary hypertension. Patient's debridement canceled, pulmonary deemed patient to high risk for any surgical procedure. Prognosis poor. Dr. Herrera discussed with and daughter hospice which they as well as patient wished to proceed with. Hospice consulted. Patient will be discharged home today in stable condition with guarded prognosis, pending the family's decision on hospice company and further arrangements. The impression and plan of care has been dictated as directed. : I performed a history and examination of this patient, discussed the same with the dictator. I agree with the dictator's note ,documented as a scribe. Any additional findings or plans will be noted. Patient Condition at Discharge: Stable Plan - Discharge Summary New Discharge Prescriptions: No Action Rivaroxaban [Xarelto] 20 mg PO DAILY@0900 Furosemide 40 mg PO DAILY@0900 Fluticasone/Salmeterol [Advair 250-50 Diskus] 1 puff INHALATION RT- BID@0900,2100 Tiotropium 18 Mcg/Puff [Spiriva] 1 cap INHALATION RT-DAILY Albuterol Sulfate [Ventolin HFA] 2 puff INHALATION RT-Q6H PRN PRN Reason: Shortness Of Breath Ipratropium-Albuterol Nebulize [Duoneb 0.5 mg-3 mg/3 ml Soln] 3 ml INHALATION RT-QID Acetaminophen Tab [Tylenol] 650 mg PO Q6HR PRN tab PRN Reason: Mild Pain Or Fever > 100.5 Famotidine [Pepcid] 20 mg PO BID@0900,1800 Metoprolol Tartrate [Lopressor] 12.5 mg PO BID@0900,1800 Prostat Awc 30 ml PO BID@0900,2100 Docusate [Colace] 100 mg PO HS@2100 Gabapentin 600 mg PO BID@0900,1800 Lactose-Reduced Food [Ensure Plus] 1 can PO BID@1000,1500 Methyl Salicylate/Menthol [Salonpas Patch] 1 patch TOPICAL DAILY@0600 Moxifloxacin HCl [Avelox] 400 mg PO DAILY@0900 oxyCODONE HCL/ACETAMINOPHEN [Percocet 10-325 mg] 1 tab PO Q6H PRN PRN Reason: Pain Collagenase [Santyl] 1 applic TOPICAL Q12H Discharge Medication List Rivaroxaban [Xarelto] 20 mg PO DAILY@0900 08/06/13 [History] Furosemide 40 mg PO DAILY@0900 08/09/13 [History] Fluticasone/Salmeterol [Advair 250-50 Diskus] 1 puff INHALATION RT-BID@0900,2100 08/18/14 [History] Tiotropium 18 Mcg/Puff [Spiriva] 1 cap INHALATION RT-DAILY 08/18/14 [History] Albuterol Sulfate [Ventolin HFA] 2 puff INHALATION RT-Q6H PRN 11/22/19 [History] Ipratropium-Albuterol Nebulize [Duoneb 0.5 mg-3 mg/3 ml Soln] 3 ml INHALATION RT-QID 11/22/19 [History] Acetaminophen Tab [Tylenol] 650 mg PO Q6HR PRN tab 01/11/20 [Rx] Famotidine [Pepcid] 20 mg PO BID@0900,1800 04/02/20 [History] Metoprolol Tartrate [Lopressor] 12.5 mg PO BID@0900,1800 04/02/20 [History] Collagenase [Santyl] 1 applic TOPICAL Q12H 04/24/20 [History] Docusate [Colace] 100 mg PO HS@209904/24/20 [History] Gabapentin 600 mg PO BID@0900,1800 04/24/20 [History] Lactose-Reduced Food [Ensure Plus] 1 can PO BID@1000,1500 04/24/20 [History] Methyl Salicylate/Menthol [Salonpas Patch] 1 patch TOPICAL DAILY@0600 04/24/20 [History] Moxifloxacin HCl [Avelox] 400 mg PO DAILY@0900 04/24/20 [History] Prostat Awc 30 ml PO BID@0900,209904/24/20 [History] oxyCODONE HCL/ACETAMINOPHEN [Percocet 10-325 mg] 1 tab PO Q6H PRN 04/24/20 [Hi story] Follow up Appointment(s)/Referral(s): Adams Abraham DO [Primary Care Provider] - As Needed Activity/Diet/Wound Care/Special Instructions: Hospice pending
--- NOTE | 2020-04-28 12:29 | P.PN ---
Subjective Progress Note Date: 04/28/20 80-year-old male, well-known to our service. The patient has history of chronic atrial fibrillation, severe COPD, with an FEV1 that is 35% of predicted, and chronic wounds of the lower extremities. The patient was sent in to be evaluated from [facility]. The patient was recently inpatient, and we saw the patient at that time. 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 We were asked to see the patient because there were some plans on possible surgical debridement of his wounds. I do long discussion with the daughter, Gabby, the surgeon, and the . It was agreed that the patient would not be a particularly good candidate for anything surgical, and likely, given his chronic medical history, would not survive any procedures. Further discussions with the daughter and the led to the conclusion that the patient should be hospice patient. I passed th, at onto the surgeon. The patient himself was very agitated, and was yelling that he wanted somebody to take him out back and she would him. The patient's major complaints include profound weakness, some shortness of breath, and chronic pain. He has a left heel wound which is healing, and the pretty significant stage III sacral wound. The patient also has a recent history of COVID 19 infection. He again tested positive for COVID 19 infection on this admission, and initially tested positive back on April 03. Currently, his temperature is 97.9, heart rate 118, respiratory rate 20, pressure 107/58, and 4 L saturation 96%. On 04/28/2020 patient seen in follow-up on medical floor, and is very lethargic, poorly responsive on today's exam, but does not appear to be in any acute distress, his breathing comfortably, currently on 4 L of oxygen the pulse ox of 93%, he is afebrile, a bit tachycardic, with a heart rate between 109-122 BPM, occasional cough. He is on antibiotics in the form of cefepime and vancomycin, been afebrile the last 24 hours, hemodynamically has been stable, calcitonin level is relatively low. We spoke to the general surgeon yesterday in regards to surgical debridement of his coccyx wound, and patient is a poor surgical risk. Patient verbalized just wanting to be made comfortable, his and breanna christie came into the hospital in medical with hospice and they were going home to think about proceeding with hospice care. Objective - Vital Signs Vital signs: Vital Signs Temp 98.3 F 04/28/20 10:00 Pulse 109 H 04/28/20 10:00 Resp 20 04/28/20 10:00 BP 99/67 04/28/20 10:00 Pulse Ox 93 L 04/28/20 10:00 Intake & Output 04/27/20 04/28/20 04/28/20 18:59 06:59 18:59 Intake Total 360 780 120 Output Total 300 500 Balance 60 280 120 Weight 92.3 kg Intake: Oral 360 780 120 Output: Urine 300 500 Other: Voiding Method Indwelling Catheter Indwelling Catheter Indwelling Catheter # Bowel Movements 1 - Exam GENERAL EXAM: Very lethargic, chronically ill-looking, 80-year-old white male, on 4 L of oxygen a pulse ox of 93% comfortable in no apparent distress. HEAD: Normocephalic/atraumatic. EYES: Normal reaction of pupils, equal size. Conjunctiva pink, sclera white. NOSE: Clear with pink turbinates. THROAT: No erythema or exudates. NECK: No masses, no JVD, no thyroid enlargement, no adenopathy. CHEST: No chest wall deformity. Symmetrical expansion. LUNGS: Equal air entry with no crackles, wheeze, rhonchi or dullness. CVS: Regular rate and rhythm, normal S1 and S2, no gallops, no murmurs, no rubs ABDOMEN: Soft, nontender. No hepatosplenomegaly, normal bowel sounds, no guarding or rigidity. EXTREMITIES: No clubbing, no edema, no cyanosis, 2+ pulses and upper and lower extremities. MUSCULOSKELETAL: Muscle strength and tone normal. SPINE: No scoliosis or deformity SKIN: No rashes. Unstageable stage III or IV coccyx decubitus ulcer CENTRAL NERVOUS SYSTEM: Lethargic No focal deficits, tone is normal in all 4 extremities. PSYCHIATRIC: Alert and oriented -3. Appropriate affect. Intact judgment and insight. - Labs CBC & Chem 7: 04/28/20 07:10 04/28/20 07:10 Labs: Abnormal Lab Results - Last 24 Hours (Table) 04/27/20 04/28/20 04/28/20 Range/Units 15:30 07:10 07:10 RBC 2.74 L (4.30-5.90) m/uL Hgb 7.1 L (13.0-17.5) gm/dL Hct 24.0 L (39.0-53.0) % MCHC 29.8 L (31.0-37.0) g/dL RDW 17.2 H (11.5-15.5) % Plt Count 141 L (150-450) k/uL Chloride 111 H (98-107) mmol/L Carbon Dioxide 31 H (22-30) mmol/L Creatinine 0.58 L (0.66-1.25) mg/dL Glucose 112 H (74-99) mg/dL Calcium 8.2 L (8.4-10.2) mg/dL Urine Protein 1+ H (Negative) Urine Blood Trace H (Negative) Ur Leukocyte Esterase Large H (Negative) Urine RBC 10 H (0-5) /hpf Urine WBC >182 H (0-5) /hpf Urine WBC Clumps Many H (None) /hpf Urine Bacteria Few H (None) /hpf Urine Mucus Few H (None) /hpf Urine Yeast (Budding) Many H (None) /hpf Microbiology - Last 24 Hours (Table) 04/27/20 15:30 Urine Culture - Preliminary Urine,Voided 04/24/20 17:04 Blood Culture - Preliminary Blood No Growth after 72 hours 04/25/20 16:49 Blood Culture - Preliminary Blood No Growth after 48 hours 04/24/20 17:04 Blood Culture Gram Stain - Final Blood Blood Culture - Final Coagulase Negative Staph Diphtheroid species Assessment and Plan Plan: Recent history of COVID 19 pneumonia, with acute on chronic hypoxemic respiratory failure in a patient with stage III/severe COPD. History of stage III COPD, with an FEV1 that is 35% of predicted. History of chronic infection/sepsis, Pseudomonas, and methicillin-resistant staph aureus bacteria. 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 History of chronic urinary tract infection. History of chronic atrial fibrillation. History of essential hypertension. History of myocardial infarction, 1987. History of osteoarthritis. History of aspiration pneumonia. History of hypothyroidism. History of colonic polyps. Chronic hypoxemic respiratory failure. History of chronic back pain. History of solitary pulmonary nodule, RLL. Plan: Continue nebulized bronchodilators, continue antibiotics per ID service recommendations, currently on cefepime and vancomycin, no worsening dyspnea, we recommended proceeding with palliative care hospice consultation, apparently patient's family is thinking about proceeding with hospice. Prognosis is extremely guarded and poor patient will be a poor surgical risk, patient made it very clear that he wants to be made comfortable, and he does not want to in the hospital. I performed a history & physical examination of the patient and discussed their management with my nurse practitioner, Ele Brown. I reviewed the nurse practitioner's note and agree with the documented findings and plan of care. Lung sounds are positive for diminished breath sounds. The findings and the impression was discussed with the patient. I attest to the documentation by the nurse practitioner. Time with Patient: Less than 30
--- NOTE | 2020-04-28 14:43 | PN ---
PROGRESS NOTE DATE OF SERVICE: 04/28/2020 REASON FOR FOLLOWUP: Catheter-associated urinary tract infection and a sacral pressure ulcer. INTERVAL HISTORY: The patient is currently afebrile. The patient is hemodynamically stable. The patient is slightly lethargic is unable to provide any history. No vomiting or diarrhea reported by nursing staff. has been put on hold. PHYSICAL EXAMINATION: Blood pressure 99/67 with pulse of 109, temperature 98.3. He is 93% on 4 L nasal cannula. General description is an elderly male lying in bed in no distress. RESPIRATORY SYSTEM: Unlabored breathing, decreased breath sounds in the bases. No wheeze. HEART: S1, S2. Regular rate and rhythm. ABDOMEN: Soft, no tenderness. LABS: Hemoglobin 7.1, white count 7.7, BUN of 19, creatinine 0.58. Repeat urine is still positive. DIAGNOSTIC IMPRESSION AND PLAN: Patient with catheter associated urinary tract infection. Cultures currently pending. Also have pressure ulcer to the sacral area. Waiting debridement versus family decision regarding possible hospice. Continue with current antibiotic for now continue with cefepime and Vanco and monitor his clinical course closely. Continue supportive care. MMODL / IJN: [id number] /
[2020-04-28] MEDS: ASCORBIC ACID 500 MG TAB PO SCH (18:00)
[2020-04-28] MEDS: MULTIVITAMINS, THERA 1 EACH TAB PO SCH (18:01)
[2020-04-28] MEDS: CHOLECALCIFEROL 25 MCG (1000 IU) TABLET PO SCH (18:01)
[2020-04-28] MEDS: CALCIUM CARBONATE 500 MG CHEWABLE PO SCH (18:01)
[2020-04-28] MEDS: CYANOCOBALAMIN 500 MCG TAB PO SCH (18:01)
[2020-04-28] MEDS: ATORVASTATIN 40 MG TAB PO SCH (20:51)
[2020-04-28] MEDS: QUEtiapine 25 MG TAB PO SCH (20:51)
[2020-04-28] MEDS: DOCUSATE 100 MG CAP PO SCH (20:51)
[2020-04-29] MEDS: COLLAGENASE 250 UNIT/GM OINTMENT 30 GM TUBE TOPICAL SCH (05:57)
[2020-04-29] MEDS: VANCOMYCIN 1,500 MG in SODIUM CHLORIDE 0.9% 250 ML IVPB SCH (05:57)
[2020-04-29] MEDS: ALBUTEROL HFA INHALER INHALATION SCH ×2 (08:09→12:06)
[2020-04-29] MEDS: SYMBICORT 80-4.5 MCG INHALER INHALATION SCH (08:13)
[2020-04-29] MEDS: TIOTROPIUM 2.5 MCG INHALER INHALATION SCH (08:13)
[2020-04-29] MEDS: GABAPENTIN 300 MG CAP PO SCH (09:56)
[2020-04-29] MEDS: CEFEPIME 2 GM in SODIUM CHLORIDE 0.9% 100 ML IVPB SCH (09:56)
[2020-04-29] MEDS: ZINC SULFATE 220 MG CAP PO SCH (09:56)
[2020-04-29] MEDS: FAMOTIDINE 20 MG TAB PO SCH (09:56)
[2020-04-29] MEDS: METOPROLOL TARTRATE 12.5 MG TAB PO SCH (09:56)
[2020-04-29] MEDS: LACTATED RINGERS 1,000 ML IV SCH (09:56)
[2020-04-29 11:16] VITALS: BP 134/62; PULSE 100; RESP 18; TEMP 98.4
[2020-04-29 11:44] LABS: Basophils # (A) 0.02 X 10*3/uL (0.00-0.10); Basophils % (A) 0.3 %; Eosinophils # (A) 0.22 X 10*3/uL (0.04-0.35); Eosinophils % (A) 2.9 %; HCT 25.2 % (39.6-50.0); HGB 7.1 g/dL (13.0-17.0); Lymphocytes # (A) 1.08 X 10*3/uL (0.90-5.00); Lymphocytes % (A) 14.1 %; MCH 26.4 pg (27.0-32.0); MCHC 28.2 g/dL (32.0-37.0); MCV 93.7 fL (80.0-97.0); Mean Platelet Volume 11.4 fL (9.5-12.2); Monocytes # (A) 0.89 X 10*3/uL (0.20-1.00); Monocytes % (A) 11.6 %; Neutrophils # (A) 5.41 X 10*3/uL (1.80-7.70); Neutrophils % (A) 70.6 %; Platelet Count 180 X 10*3/uL (140-440); RBC 2.69 X 10*6/uL (4.40-5.60); RDW 17.8 % (11.5-14.5); WBC 7.66 X 10*3/uL (4.50-10.00)
[2020-04-29 11:46] LABS: Anion Gap 3.9 mmol/L (4.00-12.00); Calcium 8.1 mg/dL (8.7-10.3); Carbon Dioxide 30.1 mmol/L (21.6-31.8); Non-African American GFR(CKD) 100.9 (60.0-200.0); Potassium 4.3 mmol/L (3.5-5.5)
[2020-04-29] MEDS: oxyCODONE-APAP 10-325MG 1 EACH TAB PO PRN (13:04)
--- NOTE | 2020-04-29 13:45 | P.PN ---
Subjective Progress Note Date: 04/29/20 80-year-old male, well-known to our service. The patient has history of chronic atrial fibrillation, severe COPD, with an FEV1 that is 35% of predicted, and chronic wounds of the lower extremities. The patient was sent in to be evaluated from [facility]. The patient was recently inpatient, and we saw the patient at that time. 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 We were asked to see the patient because there were some plans on possible surgical debridement of his wounds. I do long discussion with the daughter, Gabby, the surgeon, and the . It was agreed that the patient would not be a particularly good candidate for anything surgical, and likely, given his chronic medical history, would not survive any procedures. Further discussions with the daughter and the led to the conclusion that the patient should be hospice patient. I passed th, at onto the surgeon. The patient himself was very agitated, and was yelling that he wanted somebody to take him out back and she would him. The patient's major complaints include profound weakness, some shortness of breath, and chronic pain. He has a left heel wound which is healing, and the pretty significant stage III sacral wound. The patient also has a recent history of COVID 19 infection. He again tested positive for COVID 19 infection on this admission, and initially tested positive back on April 03. Currently, his temperature is 97.9, heart rate 118, respiratory rate 20, pressure 107/58, and 4 L saturation 96%. On 04/28/2020 patient seen in follow-up on medical floor, and is very lethargic, poorly responsive on today's exam, but does not appear to be in any acute distress, his breathing comfortably, currently on 4 L of oxygen the pulse ox of 93%, he is afebrile, a bit tachycardic, with a heart rate between 109-122 BPM, occasional cough. He is on antibiotics in the form of cefepime and vancomycin, been afebrile the last 24 hours, hemodynamically has been stable, calcitonin level is relatively low. We spoke to the general surgeon yesterday in regards to surgical debridement of his coccyx wound, and patient is a poor surgical risk. Patient verbalized just wanting to be made comfortable, his and asael oleary came into the hospital in medical with hospice and they were going home to think about proceeding with hospice care. Patient seen today April 29 2020 in follow-up on the regular medical floor. He remains quite lethargic and unresponsive. Maintaining O2 saturations in the low 90s on 4 L/m per nasal cannula. He is quite weak and debilitated. Follow- up blood culture reveals no growth. White count 7.6. Hemoglobin 7.1. Sodium 145. Potassium 4.3. Creatinine 0.5. He remains on Symbicort, IV for, Ventolin, antibiotics in the form of vancomycin and cefepime. Objective - Vital Signs Vital signs: Vital Signs Temp 98.4 F 04/29/20 09:52 Pulse 100 04/29/20 09:52 Resp 18 04/29/20 09:52 BP 134/62 04/29/20 09:52 Pulse Ox 91 L 04/29/20 09:52 Intake & Output 04/28/20 04/29/20 04/29/20 18:59 06:59 18:59 Intake Total 120 Output Total 500 675 Balance -380 -675 Weight 92.3 kg 94 kg Intake: Oral 120 Output: Urine 500 675 Other: Voiding Method Indwelling Catheter Indwelling Catheter Indwelling Catheter - Exam GENERAL EXAM: Very lethargic, chronically ill-looking, 80-year-old male patient, on 4 L of oxygen a pulse ox of 91% comfortable in no apparent distress. HEAD: Normocephalic/atraumatic. EYES: Normal reaction of pupils, equal size. Conjunctiva pink, sclera white. NOSE: Clear with pink turbinates. THROAT: No erythema or exudates. NECK: No masses, no JVD, no thyroid enlargement, no adenopathy. CHEST: No chest wall deformity. Symmetrical expansion. LUNGS: Equal air entry with bilateral scattered rhonchi CVS: Regular rate and rhythm, normal S1 and S2, no gallops, no murmurs, no rubs ABDOMEN: Soft, nontender. No hepatosplenomegaly, normal bowel sounds, no guarding or rigidity. EXTREMITIES: No clubbing, no edema, no cyanosis, 2+ pulses and upper and lower extremities. MUSCULOSKELETAL: Muscle strength and tone normal. SPINE: No scoliosis or deformity SKIN: No rashes. Unstageable stage III or IV coccyx decubitus ulcer CENTRAL NERVOUS SYSTEM: Lethargic. No focal deficits, tone is normal in all 4 extremities. PSYCHIATRIC: Unable to evaluate due to lethargy. - Labs CBC & Chem 7: 04/29/20 07:04 04/29/20 07:04 Labs: Abnormal Lab Results - Last 24 Hours (Table) 04/29/20 04/29/20 Range/Units 07:04 07:04 RBC 2.69 L (4.40-5.60) X 10*6/uL Hgb 7.1 L (13.0-17.0) g/dL Hct 25.2 L (39.6-50.0) % MCH 26.4 L (27.0-32.0) pg MCHC 28.2 L (32.0-37.0) g/dL RDW 17.8 H (11.5-14.5) % Chloride 111 H (96-109) mmol/L Anion Gap 3.90 L (4.00-12.00) mmol/L Creatinine 0.5 L (0.6-1.5) mg/dL BUN/Creatinine Ratio 38.00 H (12.00-20.00) Ratio Calcium 8.1 L (8.7-10.3) mg/dL Microbiology - Last 24 Hours (Table) 04/27/20 15:30 Urine Culture - Final Urine,Voided Lalita glabrata 04/24/20 17:04 Blood Culture - Preliminary Blood No Growth after 96 hours 04/25/20 16:49 Blood Culture - Preliminary Blood No Growth after 72 hours Assessment and Plan Assessment: Recent history of COVID 19 pneumonia, with acute on chronic hypoxemic respiratory failure in a patient with stage III/severe COPD. History of stage III COPD, with an FEV1 that is 35% of predicted. History of chronic infection/sepsis, Pseudomonas, and methicillin-resistant staph aureus bacteria. 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 History of chronic urinary tract infection. History of chronic atrial fibrillation. History of essential hypertension. History of myocardial infarction, 1987. History of osteoarthritis. History of aspiration pneumonia. History of hypothyroidism. History of colonic polyps. Chronic hypoxemic respiratory failure. History of chronic back pain. History of solitary pulmonary nodule, RLL. Plan: The patient was seen and evaluated by Dr. Basha Overall prognosis is quite poor Hospice consult placed Possible transfer to [facility] today with hospice I, the cosigning physician, performed a history & physical examination of the patient. Lungs sounds with bilateral scattered rhonchi. Maintaining good O2 saturations in the 90s on 4 L/m per nasal cannula. I discussed the assessment and plan of care with my nurse practitioner, Petra Rivera. I attest to the above note as dictated by her.
--- NOTE | 2020-04-29 18:45 | PN ---
PROGRESS NOTE I am covering for Dr. Abraham. DATE OF SERVICE: 04/29/2020. HISTORY OF PRESENT ILLNESS: This 80-year-old gentleman was admitted with sepsis with multiple wounds also had significant and prolonged hospital stay. The patient also has COPD. The patient was seen by multiple consultants including Dr. Herrera and Dr. Fontenot. Patient had catheter associated UTI. The patient also had a recent history of Covid 19 pneumonia with multiple complications. The patient will be transferred to [facility] the [place] at this time. PAST MEDICAL HISTORY: Reviewed. REVIEW OF SYMPTOMS: Could not be be taken. CURRENT MEDICATIONS: Reviewed. PHYSICAL EXAMINATION: Patient is alert and oriented x1. Pulse is 100. Blood pressure 130/60, respiration 18, temperature 98.4, pulse ox 94% on 4 L. HEENT: Conjunctivae normal. NECK: No JVD. CARDIOVASCULAR: S1, S2 muffled. RESPIRATORY SYSTEM: Breath sounds diminished at the bases. Scattered rhonchi and crackles. ABDOMEN: Soft. NERVOUS SYSTEM: Diffusely weak. LABS: WBC 7.2, hemoglobin 7.1. ASSESSMENT: 1. Acute urinary tract infection with sepsis possibly catheter associated urinary tract infection. 2. Multiple sacral decubitus ulcers. 3. Chronic obstructive pulmonary disease acute exacerbation with acute on chronic hypoxic respiratory failure. 4. congestive heart failure, acute exacerbation, acute on chronic systolic dysfunction. Ejection fraction 45-50 percent. 5. Moderate to severe mitral regurgitation. 6. Mild to moderate tricuspid regurgitation. 7. Moderate pulmonary hypertension. 8. Recent Covid pneumonia, treated with Remdesivir. 9. History of recent sepsis, multifactorial. 10.Change in mental status. 11.Bilateral lung nodules. 12.History of paraesophageal hernia. 13.History of Nicholas fundoplication. 14.Chronic congestive heart failure. 15.Hypertension. 16.Hypothyroidism. 17.Degenerative joint disease. 18.Chronic back pain. 19.History of nicotine dependence. 20.Chronic anemia. 21.NO CODE, NO CPR. NO VENT. RECOMMENDATIONS AND DISCUSSION: I recommend to continue current medications, management and symptomatic treatment. Otherwise resume the home medications and hospice is being planned at the [facility]. Guarded prognosis because of multiple complex medical issues. Further recommendations to follow. MMODL / IJN: [id number] /
== END 2020-04-29 13:19 | DRG 871 ==
LOC: EC 16:34 → 3SCARD 19:18 → 4SSUR 04-28 10:11
PROVIDERS: ADMIT Family Medicine; ATTEND Family Medicine
PROC: 5A0935A Assistance with Respiratory Ventilation, Less than 24 Consecutive Hours, High Flow/Velocity Cannula (ICD-10-PCS; principal; 2020-04-29)
DX: A41.89 Other specified sepsis (principal); L89.153 Pressure ulcer of sacral region, stage 3; G93.41 Metabolic encephalopathy; U07.1 COVID-19; I50.23 Acute on chronic systolic (congestive) heart failure; J12.82 Pneumonia due to coronavirus disease 2019; J18.9 Pneumonia, unspecified organism; J96.21 Acute and chronic respiratory failure with hypoxia; N39.0 Urinary tract infection, site not specified; T83.518A Infection and inflammatory reaction due to other urinary catheter, initial encounter; I48.20 Chronic atrial fibrillation, unspecified; J44.0 Chronic obstructive pulmonary disease with (acute) lower respiratory infection; J44.1 Chronic obstructive pulmonary disease with (acute) exacerbation; L97.419 Non-pressure chronic ulcer of right heel and midfoot with unspecified severity; D64.9 Anemia, unspecified; D72.810 Lymphocytopenia; E03.9 Hypothyroidism, unspecified; G89.29 Other chronic pain; Z66 Do not resuscitate; Z51.5 Encounter for palliative care; I08.1 Rheumatic disorders of both mitral and tricuspid valves; I11.0 Hypertensive heart disease with heart failure; I25.10 Atherosclerotic heart disease of native coronary artery without angina pectoris; I25.2 Old myocardial infarction; I27.20 Pulmonary hypertension, unspecified; I45.10 Unspecified right bundle-branch block; L89.512 Pressure ulcer of right ankle, stage 2; L89.621 Pressure ulcer of left heel, stage 1; L89.520 Pressure ulcer of left ankle, unstageable; M19.90 Unspecified osteoarthritis, unspecified site; Y84.6 Urinary catheterization as the cause of abnormal reaction of the patient, or of later complication, without mention of misadventure at the time of the procedure; Y95 Nosocomial condition; Z79.01 Long term (current) use of anticoagulants; Z79.899 Other long term (current) drug therapy; Z87.01 Personal history of pneumonia (recurrent); Z86.010 Personal history of colon polyps; Z87.440 Personal history of urinary (tract) infections; Z87.891 Personal history of nicotine dependence; Z95.1 Presence of aortocoronary bypass graft; Z96.643 Presence of artificial hip joint, bilateral; Z86.14 Personal history of Methicillin resistant Staphylococcus aureus infection; R45.1 Restlessness and agitation; M54.9 Dorsalgia, unspecified; Z80.9 Family history of malignant neoplasm, unspecified
CPT/HCPCS: 36415; 71046; 74230; 80048; 80053; 80202; 81001; 82550; 83605; 83735; 83880; 84145; 84484; 85025; 85610; 85652; 85730; 86140; 87040; 87086; 87324; 87502; 87635; 93005; 93306; 94640; 94760; 96360; 99285